=== PATIENT | male | born 1960 | race African-American/Black ===

== ENCOUNTER 2018-01-14 17:00 | Emergency (ER) | payer MEDICARE, MEDICAID ==
[2018-01-14 17:32] LABS: #Basophils 0.1 thou/uL (0.0-0.2); #Eosinphils 0.2 thou/uL (0.0-0.7); #Lymphocytes 2.3 thou/uL (1.20-3.40); #Neutrophils 7.8 thou/uL (1.40-6.50); %Basophils 0.9 % (0.0-1.0); %Eosinophils 1.4 % (0.0-10.0); %Monocytes 9.1 % (0.0-10.0); %Neutrophils 68.7 % (42.0-75.0); Hemoglobin 16.5 g/dL (14.0-18.0); Mean Corpuscular HGB CONC 33.7 g/dL (32.0-36.0); Mean Corpuscular Hemoglobin 34.7 pg (27.0-31.0); Mean Platelet Volume 10.4 fL (7.4-10.4); Platelet Count 154 thou/uL (130-400); RBC Distribution Width 12.1 % (11.5-14.5); Red Blood Cell (RBC) Count 4.76 mill/uL (4.70-6.10); White Blood Cell (WBC) Count 11.4 thou/uL (4.8-10.8)
[2018-01-14 17:45] LABS: CKMB 4.4 ng/mL (0-6.6); Troponin I 0.098 ng/mL (< 0.028)
--- NOTE | 2018-01-14 17:47 | RAD ---
CHEST ONE VIEW: HISTORY: Syncope. COMPARISON: 11/03/2015 and 11/08/2015 FINDINGS: There is a right-sided transvenous defibrillator with lead position over the right ventricle and maxx nary sinus. Lead position unchanged from the most recent prior. Atherosclerosis of the aorta. Norm al cardiac silhouette. The pulmonary vessels and hilum are normal. Chronic change in the lung bases . No consolidation or masses. No pleural effusion, pneumothorax, or osseous abnormalities. IMPRESSION: 1. No acute cardiopulmonary process. 2. Atherosclerosis of the aorta. POS: HECTOR
[2018-01-14 18:09] LABS: PTT 28.4 SEC (22.9-36.1); Prothrombin Time 13.4 SEC (12.0-14.7)
[2018-01-14 18:34] LABS: ALT (SGPT) 37 U/L (8-55); AST (SGOT) 48 U/L (5-34); Albumin 4.2 g/dL (3.5-5.0); Alkaline Phosphatase 70 U/L (40-150); Anion Gap 19 mmol/L (10-20); BUN (Urea Nitrogen) 39 mg/dL (8.4-25.7); Bilirubin, Total 1.3 mg/dL (0.2-1.2); Calc. Creatinine Clearance 0 mL/min (70-130); Calcium 10.7 mg/dL (7.8-10.44); Carbon Dioxide 24 mmol/L (22-29); Chloride 96 mmol/L (98-107); Estimated GFR-MDRD 46; Globulin 4.9 g/dL (2.4-3.5); Glucose 148 mg/dL (70-105); Potassium 3.7 mmol/L (3.5-5.1); Protein, Total 9.1 g/dL (6.0-8.3); Sodium 135 mmol/L (136-145)
--- NOTE | 2018-01-14 18:47 | CT ---
CT BRAIN WITHOUT CONTRAST: HISTORY: Syncope. Tiredness. COMPARISON: 12/14/2012 TECHNIQUE: Multiple contiguous axial images were obtained in a CT of the brain without contrast. FINDINGS: There are scattered hypodensities in the subcortical and periventricular white matter, likely seconda ry to small vessel ischemic disease. No large confluent infarction is seen. There is no evidence of hydrocephalus, intracranial hemorrhage, or extraaxial fluid collection. The calvarium and overlying soft tissues are unremarkable. The visualized paranasal sinuses and mast oid air cells are well aerated. IMPRESSION: No evidence of acute intracranial abnormality. POS: C
[2018-01-14] MEDS ORDERED: Acetaminophen 500 MG TAB ONE (19:24)
== END 2018-01-14 20:19 | disposition home or self-care (01) ==
LOC: ERS 17:00
DX: E86.0 Dehydration (principal); R55 Syncope and collapse; I11.0 Hypertensive heart disease with heart failure; I50.9 Heart failure, unspecified; M10.9 Gout, unspecified; D50.9 Iron deficiency anemia, unspecified; F17.210 Nicotine dependence, cigarettes, uncomplicated; I49.9 Cardiac arrhythmia, unspecified; I38 Endocarditis, valve unspecified; E87.5 Hyperkalemia; Z79.01 Long term (current) use of anticoagulants; Z79.899 Other long term (current) drug therapy; Z79.82 Long term (current) use of aspirin; Z79.891 Long term (current) use of opiate analgesic
CPT/HCPCS: 36415; 70450; 71045; 80053; 82553; 83880; 84484; 85025; 85610; 85730; 93005; 96360

== ENCOUNTER 2018-06-16 11:51 | Emergency (ER) | payer MEDICARE, MEDICAID ==
--- NOTE | 2018-06-16 13:15 | RAD ---
PORTABLE CHEST: Date: 06/16/18 HISTORY: Epigastric pain starting last night. COMPARISON: 01/14/18 study. FINDINGS: Heart size appears enlarged. It appears more prominent than on the previous exam. Internal defibrilla tor device is present. Atherosclerotic changes of aorta. Lungs are clear of infiltrates. No signs of failure. IMPRESSION: Cardiomegaly. Heart size appears larger than on the previous exam, some of which could be technique r elated. POS: HECTOR
[2018-06-16] MEDS ORDERED: Morphine 4 MG/ML VIAL ONE (13:26)
[2018-06-16] MEDS ORDERED: Ondansetron PF 4 MG/2 ML Vial ONE (13:27)
[2018-06-16] MEDS ORDERED: Dicyclomine 20 MG TAB ONE (13:27)
[2018-06-16 13:33] LABS: #Basophils 0.1 thou/uL (0.0-0.2); #Eosinphils 0.1 thou/uL (0.0-0.7); #Lymphocytes 1.7 thou/uL (1.20-3.40); #Monocytes 0.9 thou/uL (0.11-0.59); %Eosinophils 1.1 % (0.0-10.0); %Lymphocytes 17.3 % (21.0-51.0); %Monocytes 8.6 % (0.0-10.0); %Neutrophils 71.9 % (42.0-75.0); Hemoglobin 14.5 g/dL (14.0-18.0); Mean Corpuscular HGB CONC 33.8 g/dL (32.0-36.0); Mean Corpuscular Hemoglobin 35.1 pg (27.0-31.0); Mean Platelet Volume 8.8 fL (7.4-10.4); Platelet Count 134 thou/uL (130-400); Red Blood Cell (RBC) Count 4.14 mill/uL (4.70-6.10); White Blood Cell (WBC) Count 9.8 thou/uL (4.8-10.8)
[2018-06-16 13:39] LABS: INR-International Normal Ratio 1.1; Prothrombin Time 13.8 SEC (12.0-14.7)
[2018-06-16 14:16] LABS: CKMB 4.4 ng/mL (0-6.6)
[2018-06-16 14:58] LABS: ALT (SGPT) 22 U/L (8-55); AST (SGOT) 29 U/L (5-34); Alkaline Phosphatase 66 U/L (40-150); Anion Gap 9 mmol/L (10-20); BUN (Urea Nitrogen) 13 mg/dL (8.4-25.7); Bilirubin, Total 1.2 mg/dL (0.2-1.2); Calc. Creatinine Clearance 0 mL/min (70-130); Calcium 10.1 mg/dL (7.8-10.44); Carbon Dioxide 32 mmol/L (22-29); Chloride 98 mmol/L (98-107); Estimated GFR-MDRD 76; Globulin 3.6 g/dL (2.4-3.5); Glucose 89 mg/dL (70-105); Potassium 3.3 mmol/L (3.5-5.1); Protein, Total 7.6 g/dL (6.0-8.3); Sodium 136 mmol/L (136-145)
[2018-06-16] MEDS ORDERED: Lidocaine Viscous Sol 2% 15 ml UD Cup ONE (15:16)
[2018-06-16] MEDS ORDERED: Mag-Al 1200 mg/1200 mg/30 ML UDCUP ONE (15:16)
== END 2018-06-16 16:10 | disposition home or self-care (01) ==
LOC: ERS 11:51
DX: R10.13 Epigastric pain (principal); I11.0 Hypertensive heart disease with heart failure; I50.9 Heart failure, unspecified; I48.91 Unspecified atrial fibrillation; D50.9 Iron deficiency anemia, unspecified; M10.9 Gout, unspecified; F17.210 Nicotine dependence, cigarettes, uncomplicated; Z79.82 Long term (current) use of aspirin; Z79.899 Other long term (current) drug therapy; Z79.01 Long term (current) use of anticoagulants
CPT/HCPCS: 71045; 80053; 82553; 83690; 84484; 85025; 85610; 85730; 93005; 96374; 96375; J2270; J2405

== ENCOUNTER 2018-07-15 19:52 | Observation (INO) | payer MEDICARE, MEDICAID ==
[~2018-07-15 19:52] MED LIST: ISOVUE-370 76%-LOCM 1 ML ONE
[2018-07-15 21:20] LABS: Hemoglobin 14.8 g/dL (14.0-18.0); Mean Corpuscular HGB CONC 32.9 g/dL (32.0-36.0); Mean Corpuscular Hemoglobin 35.4 pg (27.0-31.0); Platelet Count 176 thou/uL (130-400); RBC Distribution Width 12.6 % (11.5-14.5); Red Blood Cell (RBC) Count 4.19 mill/uL (4.70-6.10); White Blood Cell (WBC) Count 13.9 thou/uL (4.8-10.8)
[2018-07-15 21:29] LABS: ALT (SGPT) 36 U/L (8-55); AST (SGOT) 59 U/L (5-34); Albumin 4.1 g/dL (3.5-5.0); Alkaline Phosphatase 86 U/L (40-150); Anion Gap 14 mmol/L (10-20); BUN (Urea Nitrogen) 19 mg/dL (8.4-25.7); Bilirubin, Total 1.3 mg/dL (0.2-1.2); Calc. Creatinine Clearance 0 mL/min (70-130); Calcium 9.9 mg/dL (7.8-10.44); Carbon Dioxide 29 mmol/L (22-29); Chloride 97 mmol/L (98-107); Estimated GFR-MDRD 74; Glucose 84 mg/dL (70-105); Potassium 3.3 mmol/L (3.5-5.1); Protein, Total 8.1 g/dL (6.0-8.3); Sodium 137 mmol/L (136-145)
--- NOTE | 2018-07-15 21:41 | RAD ---
Radiograph chest 2 views: 07/15/2018 at 9:16 PM HISTORY: 58-year-old male with cough COMPARISON: 06/16/2018 FINDINGS: Borderline or mild cardiomegaly. Right subclavian AICD. No pulmonary venous engorgement or pulmonary edema. No consolidation, pleural effusion, or pneumothorax. No major interval change, allowing for positional differences. IMPRESSION: 1. No acute pulmonary findings. 2. Automatic implantable cardioverter-defibrillator. 3. Borderline cardiomegaly without congestive heart failure.
[2018-07-15 21:42] LABS: #Basophils 0.1 thou/uL (0.0-0.2); #Eosinphils 0.1 thou/uL (0.0-0.7); #Lymphocytes 2.5 thou/uL (1.20-3.40); #Monocytes 1.3 thou/uL (0.11-0.59); %Basophils 0.5 % (0.0-1.0); %Eosinophils 0.7 % (0.0-10.0); %Lymphocytes 17.8 % (21.0-51.0); %Monocytes 9.1 % (0.0-10.0); %Neutrophils 71.8 % (42.0-75.0); MDiff Complete? YES; Macrocytosis SLIGHT = 6-15 cells (100X) (0-5/hpf); Platelet Morphology Comment Appears Adequate
[2018-07-15] MEDS ORDERED: Aspirin Chewable 81 MG TAB ONE ×2 (21:48)
[2018-07-15] MEDS ORDERED: Ondansetron ODT 4 MG TAB ONE (21:48)
[2018-07-15 21:50] LABS: CKMB 2.5 ng/mL (0-6.6)
[2018-07-15] MEDS ORDERED: diphenhydrAMINE 50 MG/ML VIAL ONE (23:58)
[2018-07-15] MEDS ORDERED: Famotidine/PF 20 mg/2ml Vial ONE (23:58)
[2018-07-15] MEDS ORDERED: methylPREDNISolone Sod Succ/PF 125 MG/2 ML VIAL ONE (23:58)
[2018-07-16 00:44] LABS: Troponin I 0.092 ng/mL (< 0.028)
[2018-07-16 02:52] VITALS: BMI 28.3
[2018-07-16] MEDS ORDERED: Ondansetron ODT 4 MG TAB SL PRN (02:53)
[2018-07-16] MEDS ORDERED: Ondansetron PF 4 MG/2 ML Vial IVP PRN (02:53)
[2018-07-16] MEDS ORDERED: Acetaminophen 325 MG TAB PO PRN (02:53)
[2018-07-16] MEDS ORDERED: Sodium Chloride 0.9% 1,000 ML IV SCH (03:00)
[2018-07-16 03:38] LABS: Troponin I 0.104 ng/mL (< 0.028)
--- NOTE | 2018-07-16 08:28 | CT ---
CTA CHEST WITH 3D RENDERING, WITH CONTRAST: Indication: Elevated D-Dimer and chest pain. Comparison: 09-05-13 FINDINGS: There is no evidence of a significant filling defect of the pulmonary arteries. The thoracic aorta is incompletely assessed by technique although it is mildly aneurysmal. There is scattered vascular fany cification. No lobar consolidation or effusion. No pneumothorax. Mild nonspecific scattered ground gl ass opacities at each lung are present. Partially imaged punctate density of the left kidney could re late to either excreted contrast or partially imaged nephrolithiasis. There is enlargement of the car diac chambers. Right sided cardiac pacing device is present. IMPRESSION: 1. No large, central pulmonary embolus. 2. Nonspecific mild ground glass opacities bilaterally. A component of this may relate to respiratory motion artifact. In addition, there may be edema given the enlarged cardiac chambers related to CHF. Recommend clinical correlation in this regard. POS: DEB
[2018-07-16] MEDS ORDERED: Warfarin Sodium 5 MG TAB PO SCH (09:00)
[2018-07-16] MEDS ORDERED: Pantoprazole 40 MG VIAL IVP SCH (09:36)
[2018-07-16 09:41] LABS: #Monocytes 0.2 thou/uL (0.11-0.59); #Neutrophils 11.9 thou/uL (1.40-6.50); %Basophils 0.3 % (0.0-1.0); %Eosinophils 0.1 % (0.0-10.0); %Lymphocytes 7.8 % (21.0-51.0); %Monocytes 1.5 % (0.0-10.0); %Neutrophils 90.4 % (42.0-75.0); Hemoglobin 14.8 g/dL (14.0-18.0); Mean Corpuscular HGB CONC 33.1 g/dL (32.0-36.0); Mean Corpuscular Hemoglobin 35.5 pg (27.0-31.0); Mean Platelet Volume 8.1 fL (7.4-10.4); Platelet Count 165 thou/uL (130-400); RBC Distribution Width 12.7 % (11.5-14.5); Red Blood Cell (RBC) Count 4.18 mill/uL (4.70-6.10); White Blood Cell (WBC) Count 13.1 thou/uL (4.8-10.8)
[2018-07-16 09:47] LABS: INR-International Normal Ratio 1.2; PTT 31.4 SEC (22.9-36.1); Prothrombin Time 14.8 SEC (12.0-14.7)
[2018-07-16] MEDS ORDERED: Sodium Chloride 0.9% (PF) 10 ML VIAL FS PRN (09:51)
[2018-07-16 10:03] LABS: Anion Gap 15 mmol/L (10-20); BUN (Urea Nitrogen) 17 mg/dL (8.4-25.7); Calc. Creatinine Clearance 85 mL/min (70-130); Calcium 10.1 mg/dL (7.8-10.44); Carbon Dioxide 27 mmol/L (22-29); Chloride 98 mmol/L (98-107); Estimated GFR-MDRD 74; Glucose 128 mg/dL (70-105); Potassium 3.3 mmol/L (3.5-5.1); Sodium 137 mmol/L (136-145)
--- NOTE | 2018-07-16 12:17 | ULT ---
EXAM: Bilateral lower extremity venous Doppler evaluation PROVIDED CLINICAL HISTORY: Elevated d-dimer. Concern for DVT TECHNIQUE: Grayscale, color doppler and spectral doppler images were obtained of the common femoral , femoral, profunda femoral, popliteal and posterior tibial veins of both lower extremities. FINDINGS: There is normal compression, flow and augmentation seen with the deep venous structures within both l ower extremities. IMPRESSION: No sonographic evidence for lower extremity deep venous thrombosis.
--- NOTE | 2018-07-16 12:47 | ULT ---
US Gallbladder RUQ History: [Right upper quadrant abdominal pain] Comparison: Right upper quadrant ultrasound 2014 Findings: Real-time grayscale and color evaluation of the right upper quadrant the abdomen was perfor med. Michael pancreas aorta and IVC are unremarkable. No hepatic mass. Gallbladder is normal. Gallbladde r wall thickness is normal. No pericholecystic fluid. Common bile duct measures 4 mm, normal. Portal vein is patent with antegrade flow. Liver measures 14.2 cm in length. Right kidney measures 11.3 x 5.5 x 6.9 cm without mass, hydronephro sis, or abnormal calcifications. Sonographic Kee sign is negative. Impression: No acute abnormality. No gallbladder pathology. No cholelithiasis or cholecystitis.
[2018-07-16] MEDS: Potassium Chloride 10 MEQ TAB PO SCH (13:03)
[2018-07-16] MEDS: Aspirin 81 mg Enteric Coated Tablet PO SCH (13:04)
[2018-07-16] MEDS: Furosemide 80 MG TAB PO SCH ×2 (13:04→13:05)
[2018-07-16] MEDS: Carvedilol 6.25 MG TAB PO SCH ×2 (13:04→20:10)
[2018-07-16 13:05] LABS: Platelet Count 191 thou/uL (130-400)
[2018-07-16] MEDS: Sacubitril 49 MG/Valsartan 51 MG TABLET PO SCH ×2 (13:05→20:13)
[2018-07-16] MEDS: Pantoprazole 40 MG VIAL IVP SCH ×2 (13:08→20:13)
[2018-07-16] MEDS ORDERED: Warfarin Sodium 7.5 MG TAB PO SCH ×2 (17:00)
[2018-07-16] MEDS ORDERED: Atorvastatin Calcium 40 MG TAB PO SCH (21:00)
--- NOTE | 2018-07-17 00:15 | HP ---
PRIMARY CARE PHYSICIAN: Dr. Eugenio Heard. CHIEF COMPLAINT: Right-sided epigastric pain. HISTORY OF PRESENT ILLNESS: Mr. Aldrich is a 58-year-old male with a past medical history of hypertension, hyperlipidemia, nonischemic cardiomyopathy with an AICD in place, who had presented to [facility] late last night for this right-sided epigastric pain that started late Sunday night while he was making dinner. He states the pain improved Sunday night, however, came back early Sunday morning, he states this was what brought him into the ER. He states that when his pain had started, he had noticed an increase gas and had positive flatulence. He states after he had passed gas that his pain improved. Upon arriving to the emergency department, his troponins were noted to be in the indeterminate range which seems to be his baseline, D-dimer was also elevated greater than 20; however, this was also noted to be his baseline, this has been high since dating back to 2012. The patient states that he has been taking warfarin 5 mg and 7.5 mg, he states that he has followed up with his PCP at the [facility]; however, he states that as far as he knows that his INR has not been monitored. His INR here had been noted to be subtherapeutic at 1.2, this also appears to be his baseline; however, patient reports being compliant. He states his outpatient facility physical therapist is Dr. Cuevas, case and plan discussed with Dr. Cuevas. The patient's pain had resolved after he had received a GI cocktail in the emergency department. Dr. Cuevas recommended to rule out problems with his gallbladder and recommended an ultrasound of his abdomen for further evaluation. He states if this is negative that he would be comfortable with this patient being discharged home and a close followup with himself in his office for further evaluation and management of his chronic condition. REVIEW OF SYSTEMS: All other systems reviewed and found to be negative unless mentioned in the HPI. PAST MEDICAL HISTORY: Hypertension, hyperlipidemia, nonischemic cardiomyopathy, chronic systolic heart failure. PAST SURGICAL HISTORY: AICD in place, cardiac ablation. PSYCHIATRIC HISTORY: None. SOCIAL HISTORY: The patient reports drinking socially every week, he states he smokes less than half pack per day of cigarettes, but had denied any further illicit drug use. KNOWN ALLERGIES: Iodine and spironolactone. CURRENT HOME MEDICATIONS: 1. Aspirin 81 mg daily. 2. Vitamin D3 1000 units p.o. daily. 3. Warfarin 5 mg p.o. daily Sunday, Sunday, , Sunday and Sunday. 4. Warfarin 7.5 mg p.o. every Sunday and Sunday. 5. Atorvastatin 40 mg p.o. daily. 6. Entresto 49 mg/51 mg tablet p.o. b.i.d. 7. Nexium 20 mg p.o. daily. 8. Furosemide 80 mg p.o. b.i.d. 9. Carvedilol 25 mg p.o. b.i.d. 10. Probenecid/colchicine 0.5/500 mg p.o. b.i.d. 11. Vitamin B12 100 mcg p.o. daily. 12. Potassium chloride 20 mEq p.o. daily. PHYSICAL EXAMINATION: VITAL SIGNS: Blood pressure 126/76, pulse 61, respirations 20, temperature 98.6 degrees Fahrenheit, O2 saturations 95% on room air. GENERAL: The patient is awake, alert, and oriented x3. He is lying comfortably in bed, in no acute distress. HEENT: Atraumatic, normocephalic. Pupils are round and reactive to light. Extraocular muscles are intact. Moist mucous membranes noted. NECK: Soft and supple. Trachea midline. CARDIOVASCULAR: Positive S1 and S2. Regular rate and rhythm. No murmur auscultated. RESPIRATORY: Clear to auscultation bilaterally. No wheezes, rales, or rhonchi. ABDOMEN: Soft, mild tenderness in his right upper quadrant. Normal bowel sounds present throughout his abdomen. MUSCULOSKELETAL: Strength 5+ bilaterally in upper and lower extremities. Moves all extremities equal. No edema noted. NEUROLOGIC: Cranial nerves 2 through 12 grossly intact. No focal deficits noted. Speech intact and normal. Gait not assessed. SKIN: Warm, dry, and intact. No rashes, lesions, or ulcerations noted. PSYCHIATRIC: Good mood and affect. LABORATORY DATA: WBC 13.1, RBC 4.18, hemoglobin 14.8, platelet 165. PT 14.8, INR 1.2, PTT 31.4. D-dimer greater than 20. Sodium 137, potassium 3.3, anion gap 15, BUN 17, creatinine 1.22, estimated GFR 74, glucose 128, AST 59, ALT 36. Troponin 0.096, 0.092, 0.104. Lipase 33. DIAGNOSTIC IMAGING: Lower extremity venous Doppler showed no evidence of lower extremity DVT at this time. CTA of the chest showed no large central pulmonary emboli, but did show nonspecific mild ground-glass opacities bilaterally, a component of this may relate to respiratory motion artifact. In addition, there may be edema given the enlarged cardiac chambers related to CHF. Portable chest x-ray showed no acute pulmonary findings with an AICD in place. Borderline cardiomegaly without congestive heart failure noted. Ultrasound of gallbladder right upper quadrant showed no acute abnormality. No gallbladder pathology. No cholelithiasis or cholecystitis noted. ASSESSMENT AND PLAN: 1. Right upper quadrant abdominal pain. This has currently resolved and improved status post GI cocktail, the patient will be kept on PPI at this time. Right upper quadrant gallbladder ultrasound was unremarkable. The patient will be monitored overnight for further events and likely be discharged in the morning. 2. History of chronic systolic heart failure, nonischemic cardiomyopathy, case and plan was also discussed with Dr. Cuevas, who had determined the patient's symptoms were likely noncardiac in nature. He had recommended the patient be restarted on his home medications and will follow up with Dr. Cuevas as an outpatient. 3. Elevated D-dimer, this is patient's baseline, D-dimer has been noted to be elevated since 2012. He will be continued on warfarin at this time. Lower extremity Doppler and CTA of chest were found to be negative for DVT and PE at this time. 4. History of warfarin use. The patient's INR is found to be subtherapeutic at this time at 1.2. He will be started on a higher dose of warfarin and his INR will be rechecked in the morning. 5. Hypokalemia. The patient's potassium is slightly low at 3.3. He will be continued on his home dose of potassium chloride at this time and BMP will be rechecked in the morning. 6. Hypertension, currently stable at this time. However, patient will be kept on his home regimen during hospital course. 7. Deep venous thrombosis and gastrointestinal prophylaxis. 8. Code status, full code. DISPOSITION: The patient will be monitored overnight. Labs including INR and BMP will be rechecked in the morning. The patient will likely be discharged later tomorrow with close followup with his outpatient facility physical therapist, Dr. Cuevas. Job ID: [id number]
[2018-07-17 09:45] LABS: INR-International Normal Ratio 1.2; Prothrombin Time 15.5 SEC (12.0-14.7)
[2018-07-17] MEDS: Carvedilol 6.25 MG TAB PO SCH (10:19)
[2018-07-17] MEDS: Potassium Chloride 10 MEQ TAB PO SCH (10:19)
[2018-07-17] MEDS: Furosemide 80 MG TAB PO SCH (10:21)
[2018-07-17] MEDS: Aspirin 81 mg Enteric Coated Tablet PO SCH (10:22)
[2018-07-17] MEDS: Sacubitril 49 MG/Valsartan 51 MG TABLET PO SCH (10:28)
[2018-07-17] MEDS: Pantoprazole 40 MG VIAL IVP SCH (10:29)
[2018-07-17 11:53] VITALS: BP 133/93; TEMP 98.6
[2018-07-17] MEDS ORDERED: Warfarin Sodium 7.5 MG TAB PO SCH (17:00)
[2018-07-17] MEDS ORDERED: Warfarin Sodium 5 MG TAB PO SCH (17:00)
== END 2018-07-17 13:12 | disposition home or self-care (01) ==
LOC: ERS 19:52 → 2SW 23:00
PROVIDERS: ADMIT Hospitalist; ATTEND Hospitalist
DX: R10.11 Right upper quadrant pain (principal); I11.0 Hypertensive heart disease with heart failure; I50.22 Chronic systolic (congestive) heart failure; E78.5 Hyperlipidemia, unspecified; I42.9 Cardiomyopathy, unspecified; F17.210 Nicotine dependence, cigarettes, uncomplicated; E87.6 Hypokalemia; R79.1 Abnormal coagulation profile; Z79.01 Long term (current) use of anticoagulants; Z79.82 Long term (current) use of aspirin; Z79.899 Other long term (current) drug therapy; Z88.8 Allergy status to other drugs, medicaments and biological substances; Z91.041 Radiographic dye allergy status; Z95.810 Presence of automatic (implantable) cardiac defibrillator
CPT/HCPCS: 71046; 71275; 76705; 80048; 80053; 82553; 83690; 83880; 84484 ×2; 85014; 85018; 85025 ×2; 85049; 85379; 85610 ×2; 85730; 93005; 93970; 96374; 96375 ×2; 96376; 99285; G0378 ×2; 36415; C9113; J1200; J2930; Q0162; Q9966; S0028

== ENCOUNTER 2018-07-24 01:42 | Emergency (ER) | payer MEDICARE, MEDICAID ==
[2018-07-24] MEDS ORDERED: Dexamethasone 10 MG/ML VIAL ONE (02:13)
[2018-07-24] MEDS ORDERED: Ketorolac Tromethamine 60 MG/2 ML VIAL ONE (02:13)
[2018-07-24] MEDS ORDERED: Fentanyl 100 MCG/2 ML VIAL ONE (02:14)
== END 2018-07-24 03:50 | disposition home or self-care (01) ==
LOC: ERS 01:42
DX: M10.9 Gout, unspecified (principal); I11.0 Hypertensive heart disease with heart failure; I50.9 Heart failure, unspecified; I48.91 Unspecified atrial fibrillation; F17.210 Nicotine dependence, cigarettes, uncomplicated; Z79.899 Other long term (current) drug therapy; Z79.82 Long term (current) use of aspirin; Z79.01 Long term (current) use of anticoagulants
CPT/HCPCS: 96372; J1100; J1885; J3010

== ENCOUNTER 2018-08-14 19:40 | Emergency (ER) | payer MEDICARE, MEDICAID ==
[2018-08-14 20:45] LABS: #Eosinphils 0.1 thou/uL (0.0-0.7); #Lymphocytes 1.9 thou/uL (1.20-3.40); #Monocytes 0.9 thou/uL (0.11-0.59); #Neutrophils 7.2 thou/uL (1.40-6.50); %Basophils 0.4 % (0.0-1.0); %Eosinophils 1.4 % (0.0-10.0); %Monocytes 8.6 % (0.0-10.0); %Neutrophils 70.6 % (42.0-75.0); Hemoglobin 13.2 g/dL (14.0-18.0); Mean Corpuscular HGB CONC 33.5 g/dL (32.0-36.0); Mean Corpuscular Hemoglobin 35.7 pg (27.0-31.0); Mean Platelet Volume 8.9 fL (7.4-10.4); Platelet Count 125 thou/uL (130-400); RBC Distribution Width 12.8 % (11.5-14.5); Red Blood Cell (RBC) Count 3.69 mill/uL (4.70-6.10); White Blood Cell (WBC) Count 10.1 thou/uL (4.8-10.8)
[2018-08-14] MEDS ORDERED: Pantoprazole 40 MG VIAL ONE (20:45)
[2018-08-14] MEDS ORDERED: Lidocaine Viscous Sol 2% 15 ml UD Cup ONE (20:45)
[2018-08-14] MEDS ORDERED: Mag-Al 1200 mg/1200 mg/30 ML UDCUP ONE (20:45)
[2018-08-14 21:00] LABS: ALT (SGPT) 29 U/L (8-55); AST (SGOT) 49 U/L (5-34); Albumin 3.8 g/dL (3.5-5.0); Alkaline Phosphatase 94 U/L (40-150); Anion Gap 13 mmol/L (10-20); BUN (Urea Nitrogen) 20 mg/dL (8.4-25.7); Bilirubin, Total 1.1 mg/dL (0.2-1.2); Calc. Creatinine Clearance 0 mL/min (70-130); Calcium 10.1 mg/dL (7.8-10.44); Carbon Dioxide 33 mmol/L (22-29); Chloride 93 mmol/L (98-107); Estimated GFR-MDRD 66; Globulin 3.5 g/dL (2.4-3.5); Glucose 107 mg/dL (70-105); Lipase 19 U/L (8-78); Potassium 3.3 mmol/L (3.5-5.1); Protein, Total 7.3 g/dL (6.0-8.3); Sodium 136 mmol/L (136-145)
[2018-08-14 21:20] LABS: CKMB 3.2 ng/mL (0-6.6)
== END 2018-08-14 21:50 | disposition home or self-care (01) ==
LOC: ERS 19:40
DX: R10.13 Epigastric pain (principal); R11.0 Nausea; I11.0 Hypertensive heart disease with heart failure; I50.9 Heart failure, unspecified; I48.91 Unspecified atrial fibrillation; D50.9 Iron deficiency anemia, unspecified; M10.9 Gout, unspecified; F17.210 Nicotine dependence, cigarettes, uncomplicated; Z79.01 Long term (current) use of anticoagulants; Z79.82 Long term (current) use of aspirin; Z79.899 Other long term (current) drug therapy
CPT/HCPCS: 80053; 82553; 83690; 84484; 85025; 93005; 96374; C9113

== ENCOUNTER 2018-08-19 11:14 | Observation (INO) | payer MEDICARE, MEDICAID ==
--- NOTE | 2018-08-19 12:00 | RAD ---
EXAM: Single view of the chest HISTORY: Syncope COMPARISON: 06/16/2018 FINDINGS: Single view of the chest shows an enlarged but stable cardiomediastinal silhouette. The pa cemaker is unchanged in position. There is no evidence of consolidation, mass, or pleural effusion. The bones are unremarkable. IMPRESSION: Cardiomegaly without evidence of acute cardiopulmonary disease
[2018-08-19 12:01] LABS: #Basophils 0.1 thou/uL (0.0-0.2); #Eosinphils 0.2 thou/uL (0.0-0.7); #Lymphocytes 2.5 thou/uL (1.20-3.40); #Neutrophils 9.8 thou/uL (1.40-6.50); %Basophils 0.6 % (0.0-1.0); %Eosinophils 1.6 % (0.0-10.0); %Lymphocytes 18.5 % (21.0-51.0); %Monocytes 7.4 % (0.0-10.0); %Neutrophils 71.9 % (42.0-75.0); Hemoglobin 16.9 g/dL (14.0-18.0); Mean Corpuscular HGB CONC 33.6 g/dL (32.0-36.0); Mean Corpuscular Hemoglobin 35.4 pg (27.0-31.0); Mean Platelet Volume 8.2 fL (7.4-10.4); Platelet Count 182 thou/uL (130-400); RBC Distribution Width 12.7 % (11.5-14.5); Red Blood Cell (RBC) Count 4.77 mill/uL (4.70-6.10); White Blood Cell (WBC) Count 13.7 thou/uL (4.8-10.8)
[2018-08-19 12:21] LABS: ALT (SGPT) 37 U/L (8-55); AST (SGOT) 35 U/L (5-34); Albumin 4.4 g/dL (3.5-5.0); Alkaline Phosphatase 97 U/L (40-150); Anion Gap 13 mmol/L (10-20); BUN (Urea Nitrogen) 27 mg/dL (8.4-25.7); Bilirubin, Total 1.9 mg/dL (0.2-1.2); CK (CPK) 244 U/L (30-200); Calc. Creatinine Clearance 0 mL/min (70-130); Calcium 11.4 mg/dL (7.8-10.44); Carbon Dioxide 36 mmol/L (22-29); Chloride 88 mmol/L (98-107); Estimated GFR-MDRD 38; Globulin 4.4 g/dL (2.4-3.5); Glucose 129 mg/dL (70-105); Potassium 3.2 mmol/L (3.5-5.1); Protein, Total 8.8 g/dL (6.0-8.3); Sodium 134 mmol/L (136-145)
[2018-08-19 12:41] LABS: CKMB 3.3 ng/mL (0-6.6)
--- NOTE | 2018-08-19 13:35 | CT ---
CT cervical spine. HISTORY: Fall syncope. Noncontrast enhanced CT images cervical spine obtained. There is disc space height loss with anterior and posterior osteophytes at C3-4, C4-5, C5-6 and C6-7. Findings compatible with changes of spondylosis. Vertebral bodies are unremarkable. The neural forame n are patent. Bilateral carotid bulb vascular calcifications seen. IMPRESSION: extensive cervical spine spondylosis without evidence of acute cervical spine fractures.
--- NOTE | 2018-08-19 13:37 | CT ---
HEAD CT WITHOUT IV CONTRAST: HISTORY: Fall/syncope. COMPARISON: 01/14/2018. FINDINGS: Patchy low attenuation changes noted in the right posterior temporal and parietal regions which are n ew from the prior study having more the appearance of subacute infarct changes. No evidence for sign ificant mass effect or midline shift. No acute hemorrhage. Scattered chronic white matter ischemic changes. IMPRESSION: Evidence for probable subacute infarct changes involving the posterior right temporal and parietal re gions. If patient's symptoms are within the time window for treatment for acute infarct, consider followup C TA brain and neck. If not, consider followup brain MRI for further assessment. Findings discussed with Susy Arcos at 1:30 p.m. MARGARET LINDSAY
[2018-08-19 14:06] LABS: Prothrombin Time 13.3 SEC (12.0-14.7)
[2018-08-19] MEDS ORDERED: Famotidine/PF 20 mg/2ml Vial ONE (14:15)
[2018-08-19] MEDS ORDERED: methylPREDNISolone Sod Succ/PF 125 MG/2 ML VIAL ONE (14:15)
[2018-08-19] MEDS ORDERED: diphenhydrAMINE 50 MG/ML VIAL ONE (14:15)
--- NOTE | 2018-08-19 15:38 | CT ---
CT ANGIOGRAM NECK WITH CONTRAST CT ANGIOGRAM OF BRAIN WITH CONTRAST: DATE: 08/19/2018 HISTORY: 58-year-old male with right MCA territory subacute infarction. TECHNIQUE: After IV contrast injection, arterial bolus chasing technique scan performed from 3 cm inferior to th e ness to vertex of head. Coronal and sagittal 3-D MIP reconstructions. FINDINGS: Streak artifact from right-sided pacemaker generator, pacemaker leads in the superior vena cava, and from dense contrast material in right-sided veins, there is severe obscuring of much of the right subclavian artery and very proximal portion of right common carotid artery. No high-grade stenosis in the rest of the right common carotid artery. Bovine origin of the left common carotid artery with no evidence of high-grade stenosis. No high-grade stenosis of left proximal subclavian artery. Distal portions are is obscured by streak artifact from contrast material in collateral veins. Numerous collateral veins throughout the perivertebral space obscures the proximal and mid portions of the simone ateral vertebral arteries. Atherosclerotic calcification of bilateral proximal internal carotid arteries, including carotid bulb s, without high-grade stenosis. Intracranially, right vertebral artery is dominant. No high-grade short segment acquired stenosis or occlusion identified in anterior or posterior circulation (except for the carotid siphons, which are difficult to evaluate because of heavy atherosclerotic plaque) involving proximal vessels. This i ncludes patent M1 segments of bilateral middle cerebral arteries, without high-grade stenosis, as well as anterior cerebral arteries. IMPRESSION: 1) suboptimal evaluation of proximal portions of major arteries of neck for reasons given above. 2) no occlusion, thrombus, or high-grade stenosis of proximal vessels of [place] of [place], including M1 segments of bilateral middle cerebral arteries.
[2018-08-19 16:54] LABS: Troponin I 0.116 ng/mL (< 0.028)
[2018-08-19] MEDS ORDERED: HYDROcodone/Acetaminophen 5/325 mg Tablet PO PRN (18:04)
[2018-08-19] MEDS ORDERED: Acetaminophen 325 MG TAB PO PRN (18:04)
[2018-08-19] MEDS ORDERED: Senokot S 8.6-50 MG TAB PO PRN (18:04)
[2018-08-19] MEDS ORDERED: NS 0.9% w/ 40 MEQ KCL 1,000 ML IV SCH (18:30)
[2018-08-19 19:48] LABS: Cardiac Risk 3.7 (Less than 4.5)
--- NOTE | 2018-08-19 22:26 | HP ---
PRIMARY CARE PHYSICIAN: Dr. Heard at [facility]. CODE STATUS: Full code. CHIEF COMPLAINT: Back strain. HISTORY OF PRESENT ILLNESS: The patient is a 58-year-old male with a past medical history of heart failure with a pacemaker, high blood pressure, atrial fibrillation with ablation, on Coumadin, gout, MD, and shingles, who presents to the ER for syncope. The patient reports that he passed out around 10:30 a.m. while inside a convenience store. He denies any LOC or vomiting. He denies any associated chest pain, shortness of breath, or heart palpitations. He reports that he fell backwards in the store and then had a friend drive him home. At home, he called his brother and his brother decided to drive him to the ER. They arrived at the ER about 1300 hours. Upon arrival, CT of the brain was done, which showed a subacute right parietal infarct. CTA was suboptimal. Chest x-ray was positive for cardiomegaly. Cardiac enzymes were elevated at 0.143. In the ED, the patient was also given Solu-Medrol, Pepcid, Benadryl, and 1 L bolus of normal saline as pre-medication for an iodine allergy. PAST MEDICAL HISTORY: The patient has a significant medical history for CHF, pacemaker, atrial fibrillation with ablation, hypertension, gout, shingles, and MD. PAST SURGICAL HISTORY: The patient has a right-sided chest wall pacemaker approximately 2 to 3 years ago. FAMILY HISTORY: Noncontributory. SOCIAL HISTORY: The patient reports smoking 7 to 8 cigarettes per day for 40 years. Denies any illicit drug use. Denies any alcohol use. PSYCHIATRIC HISTORY: The patient denies any psychiatric illnesses. ALLERGIES: THE PATIENT REPORTS ALLERGIES TO IODINE AND SPIRONOLACTONE. HOME MEDICATIONS: 1. Lipitor 40 mg p.o. daily. 2. Aspirin 81 mg p.o. daily. 3. Carvedilol 25 mg one tablet p.o. daily. 4. Cholecalciferol 1000 units p.o. daily. 5. Warfarin 5 mg p.o. daily. 6. Colchicine-probenecid 0.5 mg-500 mg tablet, directions are one tablet p.o. b.i.d. 7. Pantoprazole 40 mg p.o. daily. 8. Torsemide 20 mg p.o. daily in the a.m. 9. Potassium chloride 10 mEq p.o. daily. 10. Ferrous sulfate 65 mg p.o. daily. REVIEW OF SYSTEMS: The patient reports some back pain and spasms. All other systems reviewed and are negative unless otherwise stated in the HPI. PHYSICAL EXAMINATION: VITAL SIGNS: Temperature 98.4 oral, blood pressure 128/82, pulse 82, respirations 16, SpO2 97% on room air. HEENT: Head, atraumatic and normocephalic. Eyes, PERRLA. Extraocular muscles intact. Sclerae nonicteric. ENT, normal tympanic membranes. Oropharynx is clear. Uvula midline. Moist mucous membranes. NECK: Supple. Trachea midline. No lymphadenopathy. RESPIRATORY: Decreased breath sounds in bilateral lower lobes. No rhonchi, rales, or wheezes. CARDIOVASCULAR: Regular rate and rhythm. No murmurs, rubs, or gallops. The patient has a right-sided chest wall pacemaker in place. GI: Abdomen is soft and nontender. No hepatosplenomegaly. No guarding. No peritoneal signs. EXTREMITIES: Upper extremities, full range of motion, palpable radial pulses. No clubbing or cyanosis. NEUROLOGIC: The patient is alert and oriented x3 to person, place, and person. SKIN: Clean, dry, and intact. LABORATORY DATA: Sodium 134, potassium 3.2, chloride 88, carbon dioxide 36, BUN is 27, creatinine is 2.17, glucose 129, calcium 11.4, bilirubin 1.9, AST 35, ALT 37. Creatine kinase is 244, CK-MB 3.3. Troponins 0.143, next 0.116, next 0.130. Cholesterol 228, triglycerides 157, LDL 135, HDL 62. WBC 13.7, hemoglobin 16.9, hematocrit 50.2, platelets 182. Coags; PT is 13.3, INR is 1.0. EKG shows V-paced with premature atrial complexes and aberrant conduction 91 beats per minute. Bi-V pacemaker detected. Chest x-ray showed cardiomegaly with no acute process. ASSESSMENT AND PLAN: 1. Syncope. CT in the ER showed subacute right parietal infarct. We will order MRI. We will interrogate pacemaker. We will perform orthostatics. Troponins were elevated. The patient appears to have chronically elevated troponins and we will trend. We will consult Cardiology. The patient also reports that he has had an office echocardiogram in the past three months, so we will hold echo and consult Cardiology and add as needed. 2. Subacute CVA. On exam, the patient does have mild left upper extremity weakness and ataxia. We will order MRI. We will order fasting lipids. We will start the patient on aspirin. We will consult neuro and stroke team. 3. Acute kidney injury. The patient's creatinine was 2.17. His last creatinine on 08/14 was 1.34. We will perform gentle hydration with normal saline in lieu of patient's congestive heart failure. 4. Hypokalemia. The patient's potassium is 3.2. We will replace potassium with gentle hydration of IV fluids with potassium and recheck BMP in a.m. 5. Hyponatremia. We will perform gentle hydration. Recheck labs in a.m. 6. Congestive heart failure. Chest x-ray showed cardiomegaly with no acute process. We will restart the patient's home medications. 7. Chronic anticoagulation secondary to atrial fibrillation with ablation. The patient reports having ablation in [id number]. He also reports being noncompliant with his Coumadin secondary to frequent testing difficulties. Today, the patient's INR was 1.0. We will give him a full-dose aspirin, and we will appreciate Cardiology and Neurology's input, and guidance on anticoagulation therapy in the future. 8. Tobacco abuse. We will personnel counselor patient for cessation. 9. Hyperlipidemia. We will restart patient's home medications. 10. Gastrointestinal and deep venous thrombosis prophylaxis. 11. Hospital course is depending on clinical findings. Job ID: [id number] MTDD
[2018-08-19 23:08] LABS: Troponin I 0.124 ng/mL (< 0.028)
[2018-08-20] MEDS: Famotidine 20 MG TAB PO SCH ×2 (00:46→20:48)
[2018-08-20 03:15] VITALS: BMI 27.3
[2018-08-20 06:07] LABS: #Eosinphils 0.1 thou/uL (0.0-0.7); #Lymphocytes 1.8 thou/uL (1.20-3.40); #Monocytes 0.4 thou/uL (0.11-0.59); %Basophils 0.3 % (0.0-1.0); %Eosinophils 0.4 % (0.0-10.0); %Lymphocytes 14.7 % (21.0-51.0); %Monocytes 3.6 % (0.0-10.0); Hemoglobin 15.7 g/dL (14.0-18.0); Mean Corpuscular HGB CONC 33.2 g/dL (32.0-36.0); Mean Corpuscular Hemoglobin 35.2 pg (27.0-31.0); Mean Platelet Volume 8.5 fL (7.4-10.4); Platelet Count 175 thou/uL (130-400); RBC Distribution Width 12.7 % (11.5-14.5); Red Blood Cell (RBC) Count 4.45 mill/uL (4.70-6.10); White Blood Cell (WBC) Count 12.4 thou/uL (4.8-10.8)
[2018-08-20 06:31] LABS: ALT (SGPT) 33 U/L (8-55); AST (SGOT) 35 U/L (5-34); Albumin 3.9 g/dL (3.5-5.0); Alkaline Phosphatase 73 U/L (40-150); Anion Gap 19 mmol/L (10-20); BUN (Urea Nitrogen) 37 mg/dL (8.4-25.7); Bilirubin, Total 1.6 mg/dL (0.2-1.2); Calc. Creatinine Clearance 51 mL/min (70-130); Calcium 10.7 mg/dL (7.8-10.44); Carbon Dioxide 24 mmol/L (22-29); Chloride 93 mmol/L (98-107); Estimated GFR-MDRD 42; Globulin 4.5 g/dL (2.4-3.5); Glucose 136 mg/dL (70-105); Potassium 3.9 mmol/L (3.5-5.1); Protein, Total 8.4 g/dL (6.0-8.3); Sodium 132 mmol/L (136-145)
[2018-08-20] MEDS: Atorvastatin Calcium 40 MG TAB PO SCH (08:44)
[2018-08-20] MEDS ORDERED: Aspirin 325 MG TAB PO SCH (09:00)
--- NOTE | 2018-08-20 11:25 | PDOC.PN ---
- Subjective Encounter Start Date: 08/20/18 Encounter Start Time: 11:24 Subjective: admitted dure to syncope and collapse -: Found to have R parietal/temporal infart. -: Feeling better. Denied chest pain. - Objective Resuscitation Status - Order Detail: 08/19/18 18:04 Resuscitation Status Routine Co-Sign Provider: Resuscitation Status: FULL: Full Resuscitation Discussed with: patient Additional comments: Milagro Lopez, is surrogate decison maker [phone] Vital Signs & Weight: Vital Signs (12 hours) Temp Pulse Resp BP BP BP BP 08/20/18 07:46 98 F 76 16 139/89 08/20/18 04:00 97.7 F 70 12 119/80 08/20/18 01:45 152/86 H 141/73 H 125/83 08/20/18 00:00 97.8 F 72 15 140/83 Pulse Ox 08/20/18 07:46 97 08/20/18 04:00 96 08/20/18 01:45 08/20/18 00:00 95 Weight Weight 196 lb 9 oz I&O: 08/19/18 08/20/18 08/21/18 06:59 06:59 06:59 Intake Total 600 Balance 600 Result Diagrams: 08/20/18 04:47 08/20/18 04:47 Phys Exam - Physical Examination Constitutional: NAD HEENT: PERRLA, moist MMs Neck: no JVD, supple Respiratory: no rales fair air entry with some transmitted sound Cardiovascular: irregular Gastrointestinal: soft, non-tender, no distention, positive bowel sounds Musculoskeletal: no edema, pulses present Neurological: non-focal, moves all 4 limbs conscious and alert, cranial nerves 2-`12 intact. Moving all limbs symmetricallay with no drift Psychiatric: A&O x 3 Dx/Plan (1) Cerebral infarct Code(s): I63.9 - CEREBRAL INFARCTION, UNSPECIFIED Status: Acute (2) Chronic atrial fibrillation Code(s): I48.2 - CHRONIC ATRIAL FIBRILLATION Status: Acute (3) JOSE A (acute kidney injury) Code(s): N17.9 - ACUTE KIDNEY FAILURE, UNSPECIFIED Status: Acute (4) Demand ischemia of myocardium Code(s): I24.8 - OTHER FORMS OF ACUTE ISCHEMIC HEART DISEASE Status: Acute (5) Syncope and collapse Code(s): R55 - SYNCOPE AND COLLAPSE Status: Acute (6) CKD (chronic kidney disease) stage 3, GFR 30-59 ml/min Status: Chronic (7) Chronic systolic (congestive) heart failure Code(s): I50.22 - CHRONIC SYSTOLIC (CONGESTIVE) HEART FAILURE Status: Chronic (8) Hypertension Code(s): I10 - ESSENTIAL (PRIMARY) HYPERTENSION Status: Chronic Qualifiers: Hypertension type: essential hypertension Qualified Code(s): I10 - Essential (primary) hypertension (9) Gout Code(s): M10.9 - GOUT, UNSPECIFIED Status: Acute - Plan Start NS at 50 cc/hr. -: DC Coumadin and start eliquis for consistent anticoagulation. -: get Echo and UA with microscopy. -: Continue to hold diuretics and antihypertensives -: Avoid NSAIDS. * .
[2018-08-20] MEDS ORDERED: Apixaban 5 MG TAB PO SCH (11:45)
[2018-08-20] MEDS: Sodium Chloride 0.9% 1,000 ML IV SCH (11:56)
[2018-08-20 15:15] LABS: Bilirubin Negative (Negative); Blood, Urine Negative (Negative); Clarity CLEAR (Clear); Glucose, Urine (Dipstick) Negative (Negative); Leukocyte Negative (Negative); Nitrite Negative (Negative); Protein, Urine (Dipstick) Negative (Neg-Trace); Specific Gravity, Urine 1.024 (1.002-1.036)
[2018-08-20 15:18] LABS: Bacteria/HPF None Seen HPF (None Seen); Hyaline Casts/LPF 0-3 HYALINE CAST LPF (0-3 Hyaline); Pathc Cast-AUWi Flag 0.13 (0-2.49); RBC/HPF 0-3 HPF (0-3); Squamous Epithelial None Seen HPF (0-3); WBC/HPF None Seen HPF (0-3)
[2018-08-20 15:22] LABS: Urine Culture Reflex No No
[2018-08-20 15:27] LABS: Amphetamine Detected (NotDetected); Cocaine Metabolite Screen Not Detected (NotDetected); Medtox Reader # READER 1; Methamphetamine Detected (NotDetected); Opiate Screen Not Detected (NotDetected); Phencyclidine (PCP) Not Detected (NotDetected); THC/Cannabinoid Screen Not Detected (NotDetected)
[2018-08-20 15:28] LABS: Barbiturates Screen Not Detected (NotDetected); Benzodiazepine Screen Not Detected (NotDetected); Methadone Not Detected (NotDetected); Oxycodone Screen Not Detected (NotDetected); Tricyclic Screen Not Detected (NotDetected)
[2018-08-20 15:29] LABS: Medtox Control Line Valid? VALID (VALID)
[2018-08-20] MEDS: Apixaban 5 MG TAB PO SCH (20:48)
--- NOTE | 2018-08-20 23:55 | CON ---
DATE OF CONSULTATION: 08/20/2018 CONSULTING PHYSICIAN: Hospitalist Service. IMPRESSION: 1. Probable cardioembolic stroke secondary to his congestive heart failure and subtherapeutic Coumadin. 2. Continue Eliquis. 3. Cardiology opinion. HISTORY OF PRESENT ILLNESS: Mr. Aldrich is a 58-year-old gentleman who was at the grocery store when he suddenly lost consciousness. He does not report any known seizure type of event associated with it. When he awoke, he was helped up to a chair. He was subsequently brought to the hospital for evaluation. His CT angiogram showed some heavy calcium buildup in the internal carotids, but no definite occlusions. His CT of the brain showed a right parotid temporal region of early infarct. Due to his pacemaker, he cannot have an MRI. His INR was 1.0. He admits that he was not going to the [facility] regularly. PAST MEDICAL HISTORY: Atrial fibrillation, CHF, hypertension. PAST SURGICAL HISTORY: Pacemaker implantation. SOCIAL HISTORY: No illicit drug use. FAMILY HISTORY: Noncontributory. REVIEW OF SYSTEMS: Ten-system review of systems is otherwise unremarkable. PHYSICAL EXAMINATION: GENERAL: He is a well-nourished, middle-aged man, in no acute distress. VITAL SIGNS: Have been stable. He is afebrile. HEENT: Pupils are equal and reactive. Conjunctivae are clear. Oropharynx is clear. NECK: Supple. No lymphadenopathy. EXTREMITIES: No edema. NEUROLOGIC: He is alert and appropriate. His speech is fluent and clear. Cranial nerves are intact. Motor exam shows equal strength. Sensations intact to touch. No tremor or dysmetria is present. No abnormal movements are seen. He can walk independently. LABORATORY DATA: Imaging was reviewed. Cholesterol ratio was 3.7. SUMMARY: This is a middle-aged man with a cardioembolic event. I agree with the change to Eliquis which will simplify the situation for him. I would continue his statin. I do not think aspirin would be needed, but we will leave that up to Cardiology. Job ID: [id number]
[2018-08-21] MEDS: Sodium Chloride 0.9% 1,000 ML IV SCH (05:08)
[2018-08-21] MEDS ORDERED: Cyclobenzaprine 10 MG TAB PO PRN (05:59)
[2018-08-21] MEDS ORDERED: HYDROcodone/Acetaminophen 10/325 mg Tablet PO PRN (05:59)
[2018-08-21] MEDS ORDERED: Ondansetron PF 4 MG/2 ML Vial IVP PRN (06:03)
[2018-08-21] MEDS ORDERED: Sodium Chloride 0.65% Nasal 44 ML BOT EA NARE PRN (06:03)
[2018-08-21] MEDS ORDERED: Artificial Tear Sol 15 ML BOT EA EYE PRN (06:03)
[2018-08-21] MEDS ORDERED: hydrALAZINE 20 MG/ML VIAL SLOW IVP PRN (06:03)
[2018-08-21] MEDS ORDERED: Loratadine 10 MG TAB PO PRN (06:03)
[2018-08-21] MEDS ORDERED: Loperamide HCl 2 MG CAP PO PRN (06:03)
[2018-08-21] MEDS ORDERED: Cepastat Lozenges 1 LOZ PO PRN (06:03)
[2018-08-21] MEDS ORDERED: Diabetic Tussin 200 MG/10 ML UDCUP PO PRN (06:03)
[2018-08-21] MEDS ORDERED: Ondansetron ODT 4 MG TAB PO PRN (06:03)
[2018-08-21 06:10] LABS: Anion Gap 16 mmol/L (10-20); BUN (Urea Nitrogen) 34 mg/dL (8.4-25.7); BUN/Creatinine Ratio 24.46; Calc. Creatinine Clearance 73 mL/min (70-130); Calcium 10.4 mg/dL (7.8-10.44); Carbon Dioxide 28 mmol/L (22-29); Chloride 96 mmol/L (98-107); Estimated GFR-MDRD 63; Glucose 101 mg/dL (70-105); Phosphorus 2.4 mg/dL (2.3-4.7); Potassium 3.5 mmol/L (3.5-5.1); Sodium 136 mmol/L (136-145)
[2018-08-21] MEDS ORDERED: Zolpidem Tartrate 5 MG TAB PO PRN (06:16)
[2018-08-21] MEDS ORDERED: Carvedilol 25 MG TAB PO SCH (08:00)
[2018-08-21 08:15] LABS: Free T4 (Free Thyroxine) 1.23 ng/dL (0.70-1.48)
[2018-08-21] MEDS ORDERED: Cyanocobalamin (Vitamin B-12) 1,000 MCG TAB PO SCH (09:00)
[2018-08-21] MEDS ORDERED: Pantoprazole 40 MG GRANULES PACKET PO SCH (09:00)
[2018-08-21] MEDS ORDERED: Aspirin 81 mg Enteric Coated Tablet PO SCH (09:00)
[2018-08-21] MEDS: Apixaban 5 MG TAB PO SCH (09:32)
[2018-08-21] MEDS: Atorvastatin Calcium 40 MG TAB PO SCH (09:32)
[2018-08-21 11:55] VITALS: BP 108/74; TEMP 97.9
--- NOTE | 2018-08-21 13:45 | DIS ---
DATE OF ADMISSION: 08/19/2018 DATE OF DISCHARGE: 08/21/2018 PRIMARY CARE PHYSICIAN: Dr. Eugenio Heard. DISCHARGE DISPOSITION: Home. PRIMARY DISCHARGE DIAGNOSES: 1. Syncope. 2. Subacute posterior right temporal and parietal infarct. 3. Amphetamine abuse. 4. Acute kidney failure, prerenal. SECONDARY DISCHARGE DIAGNOSES: 1. Chronic systolic congestive heart failure stage C. 2. Nonischemic cardiomyopathy. 3. Macrocytosis. 4. Hypertension. 5. Gout. 6. Chronically elevated troponin. 7. Chronic kidney disease stage 3. 8. Chronic atrial fibrillation. 9. Chronic anticoagulation. 10. Chronic low back pain. 11. Gastroesophageal reflux disease. PRIMARY PROCEDURE/OPERATION: None. RADIOLOGICAL INVESTIGATION: Chest x-ray on admission showed cardiomegaly without acute process. CT brain showed subacute infarction in the posterior parietal region. CT [place] negative for any stenosis or occlusion. Echocardiography done result is pending. SIGNIFICANT LABORATORY DATA: WBC 12.4, hemoglobin 15.7, platelet 175, INR 1.0. Sodium 136, creatinine 1.39, phosphorus 2.4, albumin 4.0, free T4 of 1.2, TSH 0.23. Urinalysis normal. Urine drug screen showed amphetamine and methamphetamine. DISCHARGE MEDICATIONS: 1. [place] 1 or 2 tablets q.4 hourly p.r.n. 2. Lipitor 40 mg p.o. daily. 3. Coreg 25 mg p.o. b.i.d. 4. Vitamin D3 1000 units p.o. daily. 5. Colchicine 0.6 mg p.o. b.i.d. p.r.n. for gout attack. 6. Flexeril 10 mg t.i.d. p.r.n. 7. Protonix 40 mg daily. 8. Entresto 1 tablet p.o. b.i.d. 9. Demadex 20 mg daily. 10. Ambien 10 mg p.o. at bedtime p.r.n. 11. Ecotrin 81 mg p.o. daily. 12. Vitamin B12 1000 mcg p.o. daily. 13. Potassium chloride 20 mEq p.o. daily. 14. Eliquis 5 mg p.o. b.i.d. CONTRAINDICATION: None. CODE STATUS: Full code. INPATIENT CONSULTANTS: 1. Dr. Satish Jones, neurologist was consulted while in hospital. 2. Dr. Cuevas was consulted while in hospital. ALLERGIES: SPIRONOLACTONE, IODINE. DISCHARGE PLAN: Post hospital, the patient is instructed to follow up with primary care physician. The patient is instructed to follow up with Cardiology and Neurology as instructed. HOSPITAL COURSE: A 58-year-old male, who was admitted by Marisol Ndiaye. Please see her H and P for further detail. The patient was admitted for syncopal episode. In the emergency room, CT brain showed subacute infarction in the posterior parietal region on the right side. The patient was not having any neurological deficit. He has chronically elevated troponin. Subsequently in the emergency room, the patient had CT [place], which was negative for any occlusion. Chest x-ray showed cardiomegaly without any acute process. His urine drug screen was positive for amphetamine and methamphetamine, and he was also found with acute kidney failure with creatinine was 2.17, which was improved to 1.39 on discharge to baseline level. Neurology saw this patient and they recommended to continue Eliquis therapy and Neurology also recommended Cardiology consultation and that is why Dr. Cuevas was consulted. Echocardiography was done during this admission, result is pending. At this point, the patient is euvolemic. His renal function has been improved to normal. He is completely asymptomatic. He has no neurological deficit. I have seen and examined the patient at bedside. PHYSICAL EXAMINATION: VITAL SIGNS: Today currently temperature 97.9, pulse 69, respiratory rate 16, saturation 94% on room air, blood pressure 108/74, weight 197 pounds. GENERAL: The patient is currently alert, awake, no obvious acute distress. HEAD: Normocephalic and atraumatic. LUNGS: Clear without any rhonchi. CARDIAC: S1 and S2, regular without any murmur. ABDOMEN: Soft and benign. EXTREMITIES: No edema. NEUROLOGIC: Nonfocal examination. Overall, the patient is medically stable for discharge and he will follow up with primary care physician and Cardiology as instructed. Job ID: [id number]
--- NOTE | 2018-08-21 14:35 | CON ---
DATE OF CONSULTATION: REASON FOR CONSULTATION: Stroke. HISTORY OF PRESENT ILLNESS: Mr. Aldrich is a pleasant 58-year-old gentleman, very well known to myself, who comes to the hospital for dizziness. He was diagnosed with an acute stroke. He had subtherapeutic INR at that time. He is on Coumadin for history of paroxysmal atrial fibrillation that has been ablated in the past. He also has a history of nonischemic cardiomyopathy with a reduced EF and an AICD in place. He was started on Eliquis and has not had any recurrence since. He denies any chest pain, tightness, pressure, or shortness of breath. PAST MEDICAL HISTORY: 1. Nonischemic cardiomyopathy with severely reduced EF. 2. AICD in place. 3. Paroxysmal atrial fibrillation, status post ablation. 4. Hypertension. 5. Gout. 6. Shingles. PAST SURGICAL HISTORY: AICD placed in the left chest, eroded out and had to be replaced and now was placed on the right side. FAMILY HISTORY: Noncontributory. SOCIAL HISTORY: He smokes half a pack a day for last 40 years. No drug use. No alcohol use. OUTPATIENT MEDICATIONS: Include: 1. Lipitor 40 mg a day. 2. Aspirin 81 a day. 3. Carvedilol 25 mg twice a day. 4. Cholecalciferol 1000 units a day. 5. Warfarin. 6. Colchicine/probenecid. 7. Pantoprazole. 8. Torsemide 20 mg a day. 9. Potassium chloride 10 mEq a day. 10. Ferrous sulfate 65 mg a day. ALLERGIES: SPIRONOLACTONE AND IODINE. REVIEW OF SYSTEMS: A 12-point review of systems was done and negative unless stated in the history of present illness. PHYSICAL EXAMINATION: VITAL SIGNS: Temperature 98.3, pulse 65, respiratory rate 20, saturating 96% on room air, and blood pressure 128/79. GENERAL: Awake, alert, and oriented x3, in no distress. HEENT: Normocephalic and atraumatic. NECK: Supple. LUNGS: Clear. CARDIOVASCULAR: S1 and S2. No S3 or S4. No murmurs or rubs. ABDOMEN: Soft. Positive bowel sounds. EXTREMITIES: No edema. SKIN: Warm and dry. LABORATORY DATA: Laboratory work was reviewed, CBC, CMP. Chemistry, his creatinine is dropping to 1.39. Toxicology was positive for methamphetamines. ASSESSMENT: 1. Acute cerebrovascular accident. 2. Subtherapeutic INR at 1.0 on admission suggestive that he has not been taking any of his warfarin. 3. Paroxysmal atrial fibrillation, status post ablation, likely recurrence of this. No evidence of this on telemetry. PLAN: 1. Agree with Eliquis. 2. Stressed need to be compliant with his medications as this is most likely the reason why he had the stroke. 3. He will be given a coupon for his Eliquis and I will see him in 1 month. 4. He may be discharged home from the cardiac perspective. Thank you for letting us to participate in the care of your patient. We will follow. Job ID: [id number]
--- NOTE | 2018-08-21 16:21 | CT ---
CT ANGIOGRAM NECK WITH CONTRAST CT ANGIOGRAM OF BRAIN WITH CONTRAST: DATE: 08/19/2018 HISTORY: 58-year-old male with right MCA territory subacute infarction. TECHNIQUE: After IV contrast injection, arterial bolus chasing technique scan performed from 3 cm inferior to th e ness to vertex of head. Coronal and sagittal 3-D MIP reconstructions. FINDINGS: Streak artifact from right-sided pacemaker generator, pacemaker leads in the superior vena cava, and from dense contrast material in right-sided veins, there is severe obscuring of much of the right subclavian artery and very proximal portion of right common carotid artery. No high-grade stenosis in the rest of the right common carotid artery. Bovine origin of the left common carotid artery with no evidence of high-grade stenosis. No high-grade stenosis of left proximal subclavian artery. Distal portions are is obscured by streak artifact from contrast material in collateral veins. Numerous collateral veins throughout the perivertebral space obscures the proximal and mid portions of the simone ateral vertebral arteries. Atherosclerotic calcification of bilateral proximal internal carotid arteries, including carotid bulb s, without high-grade stenosis. Intracranially, right vertebral artery is dominant. No high-grade short segment acquired stenosis or occlusion identified in anterior or posterior circulation (except for the carotid siphons, which are difficult to evaluate because of heavy atherosclerotic plaque) involving proximal vessels. This i ncludes patent M1 segments of bilateral middle cerebral arteries, without high-grade stenosis, as well as anterior cerebral arteries. IMPRESSION: 1) suboptimal evaluation of proximal portions of major arteries of neck for reasons given above. 2) no occlusion, thrombus, or high-grade stenosis of proximal vessels of [place], including M1 segments of bilateral middle cerebral arteries. Transcribed Date/Time: 08/21/2018 4:21 PM
== END 2018-08-21 13:57 | disposition home or self-care (01) ==
LOC: ERS 11:14 → ERHOLD 16:00 → 2SE 21:05
PROVIDERS: ADMIT Internal Medicine; ATTEND Internal Medicine
DX: I63.9 Cerebral infarction, unspecified (principal); R53.1 Weakness; R27.0 Ataxia, unspecified; R55 Syncope and collapse; F15.10 Other stimulant abuse, uncomplicated; I13.0 Hypertensive heart and chronic kidney disease with heart failure and stage 1 through stage 4 chronic kidney disease, or unspecified chronic kidney disease; I50.22 Chronic systolic (congestive) heart failure; N17.9 Acute kidney failure, unspecified; N18.3 Chronic kidney disease, stage 3 (moderate); I24.8 Other forms of acute ischemic heart disease; I42.8 Other cardiomyopathies; D50.9 Iron deficiency anemia, unspecified; I48.0 Paroxysmal atrial fibrillation; M10.9 Gout, unspecified; R74.8 Abnormal levels of other serum enzymes; K21.9 Gastro-esophageal reflux disease without esophagitis; E87.6 Hypokalemia; E87.1 Hypo-osmolality and hyponatremia; E78.5 Hyperlipidemia, unspecified; I25.2 Old myocardial infarction; F17.210 Nicotine dependence, cigarettes, uncomplicated; Z95.0 Presence of cardiac pacemaker; Z88.8 Allergy status to other drugs, medicaments and biological substances; Z91.041 Radiographic dye allergy status; Z79.01 Long term (current) use of anticoagulants; Z79.899 Other long term (current) drug therapy
CPT/HCPCS: 70450; 70496; 70498; 71045; 72125; 80053; 80061; 80069; 80306; 81001; 82550; 82553; 84439; 84481; 84484 ×2; 85025; 85610; 93005; 93306; 96361 ×3; 96374; 96375; 97139 ×4; 99285; G0378 ×2; 36415; 84443; J1200; J2930; J3480; Q9966; S0028

== ENCOUNTER 2018-10-16 11:50 | Emergency (ER) | payer MEDICARE, MEDICAID ==
--- NOTE | 2018-10-16 13:03 | RAD ---
RADIOGRAPH CHEST 2 VIEWS: DATE: 10/16/18 HISTORY: 58-year-old male with chest pain. FINDINGS: There is cardiomegaly. There is no evidence of air space density, pulmonary edema, or pneumothorax. T here is no pleural effusion. There is a right subclavian AICD. The cardiac shadow appears slightly l arger than on 07/15/18. IMPRESSION: 1. No acute pulmonary findings. 2. Cardiomegaly without congestive heart failure. 3. Automatic implantable cardioverter-defibrillator. celia [] POS: HECTOR
[2018-10-16 13:25] LABS: #Basophils 0.1 thou/uL (0.0-0.2); #Eosinphils 0.2 thou/uL (0.0-0.7); #Lymphocytes 2.1 thou/uL (1.20-3.40); #Monocytes 0.9 thou/uL (0.11-0.59); %Basophils 0.7 % (0.0-1.0); %Eosinophils 2.4 % (0.0-10.0); %Lymphocytes 20.3 % (21.0-51.0); %Monocytes 8.5 % (0.0-10.0); Hemoglobin 15.7 g/dL (14.0-18.0); Mean Corpuscular HGB CONC 33.4 g/dL (32.0-36.0); Mean Platelet Volume 8.4 fL (7.4-10.4); Platelet Count 182 thou/uL (130-400); RBC Distribution Width 12.5 % (11.5-14.5); Red Blood Cell (RBC) Count 4.49 mill/uL (4.70-6.10); White Blood Cell (WBC) Count 10.3 thou/uL (4.8-10.8)
[2018-10-16 13:39] LABS: MDiff Complete? YES; Macrocytosis SLIGHT = 6-15 cells (100X) (0-5/hpf); Platelet Morphology Comment Appears Adequate; Troponin I 0.154 ng/mL (< 0.028)
[2018-10-16 14:46] LABS: ALT (SGPT) 10 U/L (8-55); AST (SGOT) 22 U/L (5-34); Albumin 3.6 g/dL (3.5-5.0); Alkaline Phosphatase 98 U/L (40-150); Anion Gap 17 mmol/L (10-20); BUN (Urea Nitrogen) 19 mg/dL (8.4-25.7); Bilirubin, Total 1.1 mg/dL (0.2-1.2); Calc. Creatinine Clearance 0 mL/min (70-130); Calcium 11.1 mg/dL (7.8-10.44); Carbon Dioxide 28 mmol/L (22-29); Chloride 94 mmol/L (98-107); Estimated GFR-MDRD 65; Globulin 4.4 g/dL (2.4-3.5); Glucose 124 mg/dL (70-105); Potassium 3.2 mmol/L (3.5-5.1); Sodium 136 mmol/L (136-145)
[2018-10-16] MEDS ORDERED: Aspirin Chewable 81 MG TAB ONE (15:05)
== END 2018-10-16 15:45 | disposition home or self-care (01) ==
LOC: ERS 11:50
DX: I47.2 Ventricular tachycardia (principal); R79.89 Other specified abnormal findings of blood chemistry; Z71.6 Tobacco abuse counseling; I11.0 Hypertensive heart disease with heart failure; I50.9 Heart failure, unspecified; M10.9 Gout, unspecified; F17.210 Nicotine dependence, cigarettes, uncomplicated; Z79.899 Other long term (current) drug therapy
CPT/HCPCS: 36415; 71046; 80053; 84484; 85025; 93005; 99406

== ENCOUNTER 2018-11-12 05:22 | Emergency (ER) | payer MEDICARE, MEDICAID ==
[2018-11-12] MEDS ORDERED: HYDROcodone/Acetaminophen 10/325 mg Tablet ONE (05:52)
== END 2018-11-12 06:02 | disposition home or self-care (01) ==
LOC: ERS 05:22
DX: M10.9 Gout, unspecified (principal); I11.0 Hypertensive heart disease with heart failure; I48.91 Unspecified atrial fibrillation; D50.9 Iron deficiency anemia, unspecified; G47.00 Insomnia, unspecified; I50.9 Heart failure, unspecified; I49.9 Cardiac arrhythmia, unspecified; Z71.6 Tobacco abuse counseling; Z79.899 Other long term (current) drug therapy; Z79.01 Long term (current) use of anticoagulants
CPT/HCPCS: 99406

== ENCOUNTER 2018-11-19 10:04 | Emergency (ER) | payer MEDICARE, MEDICAID ==
--- NOTE | 2018-11-19 10:46 | RAD ---
XR Chest 1 View Portable HISTORY: AICD problems COMPARISON: 11/02/2018 FINDINGS: The heart is enlarged. The aorta is tortuous. Right-sided AICD remains in place. The lungs are well expanded without lobar consolidation, pneumothoraces, merlin pulmonary edema or pleural effusions. IMPRESSION: No radiographic evidence of acute cardiopulmonary process.
[2018-11-19 11:37] LABS: ALT (SGPT) 292 U/L (8-55); AST (SGOT) 176 U/L (5-34); Albumin 3.9 g/dL (3.5-5.0); Alkaline Phosphatase 117 U/L (40-150); Anion Gap 13 mmol/L (10-20); BUN (Urea Nitrogen) 19 mg/dL (8.4-25.7); Calc. Creatinine Clearance 0 mL/min (70-130); Calcium 9.7 mg/dL (7.8-10.44); Carbon Dioxide 29 mmol/L (22-29); Chloride 95 mmol/L (98-107); Estimated GFR-MDRD 88; Globulin 3.8 g/dL (2.4-3.5); Glucose 75 mg/dL (70-105); Magnesium 1.4 mg/dL (1.6-2.6); Potassium 3.3 mmol/L (3.5-5.1); Protein, Total 7.7 g/dL (6.0-8.3); Sodium 134 mmol/L (136-145)
[2018-11-19 11:50] LABS: #Basophils 0.1 thou/uL (0.0-0.2); #Eosinphils 0.2 thou/uL (0.0-0.7); #Lymphocytes 2.6 thou/uL (1.20-3.40); #Monocytes 1.1 thou/uL (0.11-0.59); %Eosinophils 1.6 % (0.0-10.0); %Lymphocytes 23.5 % (21.0-51.0); %Monocytes 10.2 % (0.0-10.0); %Neutrophils 63.7 % (42.0-75.0); Band 1 % (5-11); Eosinophils 1 % (0-10); Hemoglobin 14.8 g/dL (14.0-18.0); Lymphocytes 29 % (21-51); MDiff Complete? YES; Macrocytosis SLIGHT = 6-15 cells (100X) (0-5/hpf); Mean Corpuscular HGB CONC 33.2 g/dL (32.0-36.0); Mean Corpuscular Hemoglobin 35.2 pg (27.0-31.0); Mean Platelet Volume 9.2 fL (7.4-10.4); Monocytes 7 % (0-10); Myelocyte 1 % (0-0); Neutrophil 61 % (42-75); Platelet Count 130 thou/uL (130-400); Platelet Morphology Comment Appears Adequate; RBC Distribution Width 13.4 % (11.5-14.5); Red Blood Cell (RBC) Count 4.21 mill/uL (4.70-6.10); White Blood Cell (WBC) Count 11.1 thou/uL (4.8-10.8)
[2018-11-19 12:00] LABS: CKMB 3.3 ng/mL (0-6.6)
[2018-11-19] MEDS ORDERED: Furosemide 40 MG/4 ML VIAL ONE (12:24)
[2018-11-19] MEDS ORDERED: Potassium Chloride 20 MEQ TAB ONE (12:24)
[2018-11-19] MEDS ORDERED: Magnesium 2 GM/50 ML BAG (IN WATER) ONE (12:26)
== END 2018-11-19 13:17 | disposition home or self-care (01) ==
LOC: ERS 10:04
DX: E87.6 Hypokalemia (principal); E83.42 Hypomagnesemia; I11.0 Hypertensive heart disease with heart failure; I50.9 Heart failure, unspecified; I49.9 Cardiac arrhythmia, unspecified; I48.91 Unspecified atrial fibrillation; D50.9 Iron deficiency anemia, unspecified; M10.9 Gout, unspecified; G47.00 Insomnia, unspecified; F17.210 Nicotine dependence, cigarettes, uncomplicated; Z79.899 Other long term (current) drug therapy; Z79.01 Long term (current) use of anticoagulants
CPT/HCPCS: 36415; 71045; 80053; 82553; 83735; 83880; 84484; 85025; 93005; 96365; 96375; J1940; J3475

== ENCOUNTER 2018-12-01 04:10 | Observation (INO) | payer MEDICARE, MEDICAID ==
[2018-12-01] MEDS ORDERED: Ondansetron PF 4 MG/2 ML Vial ONE (04:24)
[2018-12-01] MEDS ORDERED: Mag-Al 1200 mg/1200 mg/30 ML UDCUP ONE (04:25)
[2018-12-01] MEDS ORDERED: Lidocaine Viscous Sol 2% 15 ml UD Cup ONE (04:25)
[2018-12-01 04:31] LABS: #Basophils 0.1 thou/uL (0.0-0.2); #Eosinphils 0.1 thou/uL (0.0-0.7); #Lymphocytes 2.5 thou/uL (1.20-3.40); #Monocytes 0.9 thou/uL (0.11-0.59); #Neutrophils 5.6 thou/uL (1.40-6.50); %Basophils 1.1 % (0.0-1.0); %Eosinophils 1.5 % (0.0-10.0); %Lymphocytes 27.3 % (21.0-51.0); %Monocytes 9.7 % (0.0-10.0); %Neutrophils 60.4 % (42.0-75.0); Hemoglobin 14.2 g/dL (14.0-18.0); Mean Corpuscular HGB CONC 33.9 g/dL (32.0-36.0); Mean Corpuscular Hemoglobin 35.2 pg (27.0-31.0); Mean Platelet Volume 7.3 fL (7.4-10.4); Platelet Count 166 thou/uL (130-400); Red Blood Cell (RBC) Count 4.03 mill/uL (4.70-6.10); White Blood Cell (WBC) Count 9.3 thou/uL (4.8-10.8)
[2018-12-01 04:51] LABS: ALT (SGPT) 41 U/L (8-55); AST (SGOT) 52 U/L (5-34); Albumin 3.6 g/dL (3.5-5.0); Alkaline Phosphatase 85 U/L (40-150); Anion Gap 15 mmol/L (10-20); BUN (Urea Nitrogen) 23 mg/dL (8.4-25.7); Calc. Creatinine Clearance 0 mL/min (70-130); Calcium 10.3 mg/dL (7.8-10.44); Carbon Dioxide 27 mmol/L (22-29); Chloride 95 mmol/L (98-107); Estimated GFR-MDRD 62; Globulin 3.9 g/dL (2.4-3.5); Glucose 84 mg/dL (70-105); Lipase 18 U/L (8-78); Potassium 3.4 mmol/L (3.5-5.1); Protein, Total 7.5 g/dL (6.0-8.3); Sodium 134 mmol/L (136-145)
[2018-12-01 06:02] LABS: Bacteria/HPF None Seen HPF (None Seen); Bilirubin Negative (Negative); Blood, Urine Negative (Negative); Clarity Turbid (Clear); Glucose, Urine (Dipstick) Normal (Negative); Leukocyte 25 Leu/uL (Negative); Nitrite Negative (Negative); Protein, Urine (Dipstick) 30 mg/dL (Neg-Trace); RBC/HPF 0-3 HPF (0-3); Squamous Epithelial 0-3 HPF (0-3); Urobilinogen 6 mg/dL (Less than 2); WBC/HPF 0-3 HPF (0-3)
[2018-12-01] MEDS ORDERED: Morphine 4 MG/ML VIAL ONE (06:03)
[2018-12-01] MEDS ORDERED: Pantoprazole 40 MG VIAL ONE (06:03)
[2018-12-01 06:11] LABS: CKMB 2.1 ng/mL (0-6.6)
--- NOTE | 2018-12-01 06:24 | PDOC.FPRHP ---
- History of Present Illness Chief Complaint: Epigastric Pain History of Present Illness: 58yo AAM with h/o HTN, CHF, Afib, CHF with Pacemaker/defibrillator, presents for epigastric pain since 1400 the day prior to admission. Pain described as a "biting/cramping" pain that is intermittant and lasts 5-10 minutes occurring every 15 minutes. Rates pain as 10/10. Pt does not radiate, no associated SOB, n /v, fever/chills. Pain occurred while lying down to rest, no meals prior to pain onset. He has had previous pain last week and states he was told it was " GI in nature." Denies any recent trauma or stain. Does endorse non-bloody, diarrhea for past day, occurring 3-4 times. No sick contacts. Decreased PO intake for past few days. States pain was resolved with GI cocktail in ED. ED Course: Given morphine 4mg, protonix 40mg, Zofran 4mg, and GI cocktail with relief of sxs. - Allergies/Adverse Reactions Allergies Allergy/AdvReac Type Severity Reaction Status Date / Time iodine Allergy Mild Hives Verified 12/01/18 07:52 spironolactone Allergy Verified 12/01/18 07:52 - Home Medications Medication Instructions Recorded Confirmed Type Aspirin [Ecotrin Low Strength] 81 mg PO DAILY #0 tab 04/21/13 12/01/18 Rx Cholecalciferol (Vitamin D3) 1,000 unit PO DAILY 09/05/13 12/01/18 History [D3-2000] Pantoprazole [Protonix] 40 mg PO DAILY 08/20/18 12/01/18 History Zolpidem Tartrate [Ambien] 10 mg PO HS PRN 08/20/18 12/01/18 History Potassium Chloride 10 meq PO DAILY 11/03/18 12/01/18 History Apixaban [Eliquis] 5 mg PO BID #60 tab 11/05/18 12/01/18 Rx Carvedilol [Coreg] 3.125 mg PO BID #60 tab 11/05/18 12/01/18 Rx Magnesium 400 mg PO DAILY #30 tablet 11/05/18 12/01/18 Rx Sacubitril/Valsartan [Entresto 24 1 tab PO BID #60 tab 11/05/18 12/01/18 Rx mg-26 mg Tablet] Torsemide [Demadex] 20 mg PO DAILY #30 tab 11/05/18 12/01/18 Rx Amiodarone [Cordarone] 200 mg PO DAILY 12/01/18 12/01/18 History Comments: Pt is no longer taking steroid dose mikel - History PMHx: HTN, A.fib, CHF, Gout, Sleep Apnea (no CPAP), Hx Shingles, HLD PSHx: Pacemaker/Defribrilator (2016), Ablation FHx: HTN, Father- Heart Attack, Sister-Diabetes, Unsure Cancer Social: 4-5 cigs a day, 40 yr 1ppd hx, Reports alcohol use- 4-5 beers a weekend , Denies illicit drug use. Lives alone. - Review of Systems General: denies: fever/chills, weight/appetite/sleep changes, night sweats, fatigue Eyes: denies: eye pain, vision changes ENT: reports: nasal congestion. denies: rhinorrhea Respiratory: reports: congestion. denies: cough, shortness of breath Cardiovascular: reports: chest pain Gastrointestinal: reports: diarrhea (3-4 loose stools for last few days), abdominal pain. denies: nausea, vomiting, constipation Genitourinary: denies: incontinence Skin: denies: rashes, lesions Musculoskeletal: reports: pain. denies: tenderness Neurological: denies: numbness, seizure, weakness Psychological: denies: anxiety, depression - Vital signs BP: [116/82] HR: [71] RR: [18] Tmax: [97.9] Pox: [96]% on [RA] Wt: [90kg] - Physical Exam Constitutional: NAD, awake, alert and oriented (sleepy but arouses to voice and answers appropriately.), well developed HEENT: PERRLA, EOMI, other (dry MM) Neck: supple, trachea midline Heart: RRR, normal S1/S2, pulses present, no edema, other (2/6 systolic ejection murmur) Lungs: CTAB, no respiratory distress, good air movement, no rales/rhonchi, no wheezing Abdomen: soft, bowel sounds present, no masses/distention, other (mildly TTP over epigastric region, no rebound or guarding. negative marino's and mcburney' s sign.) Musculoskeletal: normal structure Neurological: no focal deficit, CN II-XII intact, normal sensation Skin: no rash/lesions Heme/Lymphatic: no unusual bruising or bleeding Psychiatric: normal mood and affect FMR H&P: Results - Labs Result Diagrams: 12/01/18 04:22 12/01/18 04:22 Lab results: WBC 9.3 thou/uL (4.8-10.8) 12/01/18 04:22 Hgb 14.2 g/dL (14.0-18.0) 12/01/18 04:22 Hct 41.8 % (42.0-52.0) L 12/01/18 04:22 MCV 104.0 fL (78.0-98.0) H 12/01/18 04:22 Plt Count 166 thou/uL (130-400) 12/01/18 04:22 Neutrophils % 60.4 % (42.0-75.0) 12/01/18 04:22 Sodium 134 mmol/L (136-145) L 12/01/18 04:22 Potassium 3.4 mmol/L (3.5-5.1) L 12/01/18 04:22 Chloride 95 mmol/L (98-107) L 12/01/18 04:22 Carbon Dioxide 27 mmol/L (22-29) 12/01/18 04:22 BUN 23 mg/dL (8.4-25.7) 12/01/18 04:22 Creatinine 1.42 mg/dL (0.7-1.3) H 12/01/18 04:22 Glucose 84 mg/dL (70-105) 12/01/18 04:22 Calcium 10.3 mg/dL (7.8-10.44) 12/01/18 04:22 Total Bilirubin 2.0 mg/dL (0.2-1.2) H 12/01/18 04:22 AST 52 U/L (5-34) H 12/01/18 04:22 ALT 41 U/L (8-55) 12/01/18 04:22 Alkaline Phosphatase 85 U/L (40-150) 12/01/18 04:22 CK-MB (CK-2) 2.1 ng/mL (0-6.6) 12/01/18 04:23 Serum Total Protein 7.5 g/dL (6.0-8.3) 12/01/18 04:22 Albumin 3.6 g/dL (3.5-5.0) 12/01/18 04:22 Lipase 18 U/L (8-78) 12/01/18 04:22 Urine Ketones Negative mg/dL (Negative) 12/01/18 05:49 Urine Blood Negative (Negative) 12/01/18 05:49 Urine Nitrite Negative (Negative) 12/01/18 05:49 Ur Leukocyte Esterase 25 Froylan/uL (Negative) 12/01/18 05:49 Urine RBC 0-3 HPF (0-3) 12/01/18 05:49 Urine WBC 0-3 HPF (0-3) 12/01/18 05:49 Ur Squamous Epith Cells 0-3 HPF (0-3) 12/01/18 05:49 Urine Bacteria None Seen HPF (None Seen) 12/01/18 05:49 - EKG Interpretation EKG: v-paced, similar to previous EKG - Radiology Interpretation Chest x-ray Status: image reviewed by me (Report pending - AICD in place, significant cardiomegaly, sharp costdiaphragmatic recesses, no focal consolidation) FMR H&P: A/P - Problem List (1) Chest pain Current Visit: Yes Status: Acute Code(s): R07.9 - CHEST PAIN, UNSPECIFIED (2) CKD (chronic kidney disease) stage 3, GFR 30-59 ml/min Current Visit: No Status: Chronic (3) Chronic atrial fibrillation Current Visit: No Status: Chronic Code(s): I48.2 - CHRONIC ATRIAL FIBRILLATION (4) Chronic systolic (congestive) heart failure Current Visit: No Status: Chronic Code(s): I50.22 - CHRONIC SYSTOLIC ( CONGESTIVE) HEART FAILURE Comment: ACC/AHA stage C (5) Elevated troponin Current Visit: Yes Status: Chronic Code(s): R74.8 - ABNORMAL LEVELS OF OTHER SERUM ENZYMES (6) Hypertension Current Visit: No Status: Chronic Priority: Medium Code(s): I10 - ESSENTIAL (PRIMARY) HYPERTENSION Qualifiers: Hypertension type: essential hypertension Qualified Code(s): I10 - Essential (primary) hypertension - Plan 58yo AAM with h/o HTN, CHF, Afib, CHF with Pacemaker/defibrillator, presents for epigastric pain likely GERD. #Epigastric pain, likely GERD - Trop 0.210, near baseline per records reviewed. Will trend and monitor on tele - EKG v-paced, similar to previous - Known to Dr. Cuevas at previous admission, cards consult, apprec recs, possible stress - sxs responded well to GI cocktail - continue home protonix, added pepcid and zofran prn. # Afib - known h/o, pacemaker and on eliquis and amio per previous records\\ -Cards consulted- follow recs - will continue home eliquis, hold amio at this time - monitor on tele #HFrEF - EF 15-20% on ECHO on 08/21/18, defib in place - continue home Entresto, Toresemide, Coreg, and ASA - will check BNP, no s/s of volume overload, lungs clear and no LE edema, will monitor - strict I/Os # CKD III - Cr 1.42, baseline ~1.2-1.3 - dry on exam, but with low EF will hold IVF at this time, encourage PO intake and monitor VTE: home Eliquis Diet: NPO for possible stress, HH after Code: Full Disposition/LOS: Admit to tele obs for CP r/o, likely GI in nature. Continue GI meds, trend trops. Cards consult, apprec recs. Anticipate hospitalization <48 hours. FMR H&P: Upper Level - Pertinent history I was present with the consultant internship during the HPI. I scribed the above HPI. I made edits above as needed. - Pertinent findings Pt tender to palpation in Epigastric area. - Plan Date/Time: 12/01/18 0623 I, Gonzalez Wilkerson, PGY-3, have evaluated this patient and agree with findings/ plan as outlined by consultant internship resident. Pertinent changes/additions are listed here. I agree with the above plan and made edits as needed. At this time we will do a chest pain rule out workup. Due to patient extensive cardiac hx will trend troponins and consult cardiology for further testing recs. Pain seems to be GERD related. Px zofran shc, pepcid and protonix. Addendum - Attending - Attending Attestation Date/Time: 12/01/18 1126 I personally evaluated the patient and discussed the management with Dr. Sinha I agree with the History, Examination, Assessment and Plan documented above with any addition or exceptions noted below. 58 yo male with epigatric pain will r/o ACS patient tender to epigastric region with history of tobacco use suspect gastritis/GERD as likely cause note lipase nl and prior GB Ultrasound wnl in June. Expectant management if r/o ACS rec continued outpatient evaluation GI etiology consider EGD H.Pylori patient empirically on PPI.
[2018-12-01] MEDS ORDERED: Ondansetron ODT 4 MG TAB PO PRN (07:20)
[2018-12-01] MEDS ORDERED: Calcium Carbonate 500 MG ChewTAB PO PRN (07:20)
[2018-12-01] MEDS ORDERED: Acetaminophen 325 MG TAB PO PRN (07:20)
[2018-12-01 09:07] LABS: Troponin I 0.208 ng/mL (< 0.028)
--- NOTE | 2018-12-01 09:24 | RAD ---
CHEST 1 VIEW: COMPARISON: 11/19/2018. HISTORY: Epigastric pain. FINDINGS: Stable right-sided transvenous defibrillator with lead position in the right ventricle and coronary s inus. There is persistent cardiomegaly and atherosclerosis of the aortic knob. No pleural effusion. No masses or consolidation. No pneumothorax or osseous abnormalities. IMPRESSION: 1. Cardiomegaly without evidence of congestive heart failure. 2. Atherosclerosis. POS: OFF
[2018-12-01] MEDS: Ondansetron PF 4 MG/2 ML Vial IVP SCH ×3 (09:42→20:55)
[2018-12-01] MEDS: Apixaban 5 MG TAB PO SCH ×2 (14:22→20:55)
[2018-12-01] MEDS: Pantoprazole 40 MG GRANULES PACKET PO SCH (14:22)
[2018-12-01] MEDS: Torsemide 20 MG TAB PO SCH (14:22)
[2018-12-01] MEDS: Famotidine 20 MG TAB PO SCH ×2 (14:22→20:55)
[2018-12-01] MEDS: Aspirin 81 mg Enteric Coated Tablet PO SCH (14:22)
[2018-12-01] MEDS: Potassium Chloride 10 MEQ TAB PO SCH (14:23)
[2018-12-01] MEDS: Magnesium Oxide 400 MG TAB PO SCH (14:23)
--- NOTE | 2018-12-01 14:36 | NM ---
NUCLEAR MEDICINE CARDIAC STRESS WITH EF AND WALL MOTION: HISTORY: Chest pain. Congestive heart failure. Atrial fibrillation. Status post ablation. FINDINGS: Large fixed defects involving the anterior apical wall, inferior wall as well as the inferior lateral wall. No evidence of reversibility. TID is 0.94. End-diastolic volume 278 mL. End systolic volume 210 mL. Cardiac gating: Global hypokinesis. 24% ejection fraction. IMPRESSION: 1. Multiple areas of fixed defect suggesting scar in the anterior apical left ventricle, inferior lef t ventricle as well as the inferior lateral left ventricle. 2. Global hypokinesis. 24% ejection fraction. Transcribed Date/Time: 12/01/2018 2:47 PM
[2018-12-01 15:48] LABS: Troponin I 0.219 ng/mL (< 0.028)
[2018-12-01] MEDS ORDERED: ADENOSINE 60 MG/20 ML VIAL ONE (16:56)
--- NOTE | 2018-12-01 17:14 | CON ---
DATE OF CONSULTATION: 12/01/2018 REASON FOR CONSULTATION: Abnormal stress study. HISTORY OF PRESENT ILLNESS: Mr. Aldrich is a 58-year-old gentleman who is a patient Dr. Dexter Cuevas. He has a history of nonischemic cardiomyopathy diagnosed several years ago. He recently presented with epigastric pain. He states the pain is much worse with eating. It has occurred in the last 2 to 3 weeks. Subsequently, he received a noninvasive stress study to assess for ischemia. His stress study did suggest a fixed defect along the anterior apical and inferior wall and inferolateral wall with LVEF of 24%. The patient denies chest pain, pressure, or shortness of breath. No PND, orthopnea, or lower extremity edema present. PAST MEDICAL HISTORY: Nonischemic cardiomyopathy, chronic atrial fibrillation, hypertension, chronic kidney disease, back pain, acid reflux, previous amphetamine use, and AICD placement. ALLERGIES: IODINE. MEDICATIONS: Include: 1. Eliquis. 2. Carvedilol. 3. Aspirin. 4. Potassium. 5. Pantoprazole. 6. Vicodin. 7. Entresto. 8. Ambien. SOCIAL HISTORY: No current tobacco or alcohol use. REVIEW OF SYSTEMS: Ten-point review of systems is reviewed and as above, otherwise negative. PHYSICAL EXAMINATION: GENERAL: Patient is a pleasant 58-year-old who is in no acute distress. The patient appears their stated age. VITAL SIGNS: Blood pressure 122/65, pulse 81, and temperature 97.7. NEUROLOGIC: The patient is alert and oriented x3 with no focal neurologic deficits. HEENT: Sclerae without icterus. Mouth has moist mucous membranes with normal pallor. NECK: No JVD. Carotid upstroke brisk. No bruits bilaterally. LUNGS: Clear to auscultation with unlabored respirations. BACK: No scoliosis or kyphosis. CARDIAC: Regular rate and rhythm with normal S1 and S2. No S3 or S4 noted. No significant rubs, murmurs, thrills, or gallops noted throughout the precordium. PMI is not displaced. There is no parasternal heave. ABDOMEN: Soft, nontender, nondistended. No peritoneal signs present. No hepatosplenomegaly. No abnormal striae. EXTREMITIES: 2+ femoral and 2+ dorsalis pedis pulses. No cyanosis, clubbing, or edema. SKIN: No gross abnormalities. PERTINENT LABORATORY DATA: Hemoglobin 14.4. Peak troponin 0.2, creatinine 1.24, GFR 64, sodium 132, potassium 3.4. IMPRESSION: 1. Epigastric pain. 2. Nonischemic cardiomyopathy. 3. Atrial fibrillation. RECOMMENDATIONS: At this point, the patient's symptoms appear to be GI in nature and not cardiac. We would recommend a gallbladder ultrasound to assess for gallbladder disease. His pain seems to be much worse with eating. He states he fears eating because of pain. May also consider stopping Eliquis. In case, he does need a repeat angio with the repeat angio can also be performed as an outpatient. Otherwise, further recommendation per Dr. Dexter Cuevas in a.m. Job ID: [id number]
[2018-12-02] MEDS: Ondansetron PF 4 MG/2 ML Vial IVP SCH ×3 (01:30→15:16)
[2018-12-02 04:52] LABS: #Basophils 0.1 thou/uL (0.0-0.2); #Eosinphils 0.1 thou/uL (0.0-0.7); #Lymphocytes 2.3 thou/uL (1.20-3.40); #Monocytes 0.8 thou/uL (0.11-0.59); #Neutrophils 3.4 thou/uL (1.40-6.50); %Basophils 1.5 % (0.0-1.0); %Eosinophils 1.5 % (0.0-10.0); %Lymphocytes 34.7 % (21.0-51.0); %Monocytes 11.6 % (0.0-10.0); %Neutrophils 50.6 % (42.0-75.0); Mean Corpuscular Hemoglobin 34.2 pg (27.0-31.0); Mean Platelet Volume 7.7 fL (7.4-10.4); Platelet Count 163 thou/uL (130-400); Red Blood Cell (RBC) Count 4.09 mill/uL (4.70-6.10); White Blood Cell (WBC) Count 6.8 thou/uL (4.8-10.8)
[2018-12-02 05:13] LABS: ALT (SGPT) 35 U/L (8-55); AST (SGOT) 38 U/L (5-34); Albumin 3.5 g/dL (3.5-5.0); Alkaline Phosphatase 84 U/L (40-150); Anion Gap 14 mmol/L (10-20); BUN (Urea Nitrogen) 25 mg/dL (8.4-25.7); Bilirubin, Total 1.4 mg/dL (0.2-1.2); Calc. Creatinine Clearance 62 mL/min (70-130); Calcium 10.3 mg/dL (7.8-10.44); Carbon Dioxide 29 mmol/L (22-29); Chloride 97 mmol/L (98-107); Estimated GFR-MDRD 54; Globulin 3.9 g/dL (2.4-3.5); Glucose 97 mg/dL (70-105); Potassium 3.4 mmol/L (3.5-5.1); Protein, Total 7.4 g/dL (6.0-8.3); Sodium 137 mmol/L (136-145)
--- NOTE | 2018-12-02 05:53 | PDOC.FM ---
- Subjective Subjective: Pt is having epigastric pain this morning. It is worse at night and after he eats. He says he is able to eat though. Last BM was yesterday. - Objective MAR Reviewed: Yes Vital Signs & Weight: Vital Signs (12 hours) Temp Pulse Resp BP Pulse Ox 12/02/18 04:00 97.5 F L 83 16 120/76 92 L 12/01/18 19:25 98.0 F 88 18 122/78 94 L Weight Weight 88.451 kg I&O: 11/30/18 12/01/18 12/02/18 06:59 06:59 06:59 Intake Total 480 Balance 480 Result Diagrams: 12/02/18 04:27 12/02/18 04:27 Phys Exam - Physical Examination Constitutional: NAD HEENT: PERRLA, moist MMs, oral pharynx no lesions Neck: supple, full ROM Respiratory: clear to auscultation bilateral Cardiovascular: RRR Pt is has systolic blowing murmur loudest in the mitral region Gastrointestinal: soft, positive bowel sounds Tender to palpation in central epigastric region Musculoskeletal: no edema, pulses present Neurological: moves all 4 limbs Psychiatric: normal affect, A&O x 3 Skin: normal turgor Dx/Plan (1) Chest pain Code(s): R07.9 - CHEST PAIN, UNSPECIFIED Status: Acute (2) Elevated troponin Code(s): R74.8 - ABNORMAL LEVELS OF OTHER SERUM ENZYMES Status: Chronic (3) JOSE A (acute kidney injury) Code(s): N17.9 - ACUTE KIDNEY FAILURE, UNSPECIFIED Status: Acute - Plan Plan: 58yo AAM with h/o HTN, CHF, Afib, CHF with Pacemaker/defibrillator, presents for epigastric pain likely GERD. 1. Epigastric pain, likely GERD * Trop 0.210, near baseline per records reviewed. Will trend and monitor on tele * EKG v-paced, similar to previous * Stress: Left apical, lateral, and inferior ventricle. Global hypokinesis. EF: 24% * sxs responded well to GI cocktail - continue home protonix, added pepcid and zofran prn. * RUQ US: pending * Needs outpt GI f/u 2. Afib * known h/o, pacemaker and on eliquis and amio per previous records * Cards consulted, appreciate recs. Will await for recs today. * will continue home eliquis, hold amio at this time 3. HFrEF * EF 15-20% on ECHO on 08/21/18, defib in place * continue home Entresto, Toresemide, Coreg, and ASA * will check BNP, no s/s of volume overload, lungs clear and no LE edema, will monitor 4. CKD III * Cr 1.61, baseline ~1.2-1.3 * dry on exam, but with low EF will hold IVF at this time, encourage PO intake and monitor VTE: home Eliquis Diet: NPO for possible stress, HH after Code: Full Disposition: F/u on cardio recs and RUQ US. Possibly d/c this afternoon depending on recs. Addendum - Attending - Attending Attestation Date/Time: 12/02/18 4679 I personally evaluated the patient and discussed the management with Dr. Sinha and team. I agree with the History, Examination, Assessment and Plan documented above with any addition or exceptions noted below. Asymptomatic this AM. Await abd sono and cards with dispo pending.
[2018-12-02 08:41] VITALS: BMI 27.0
[2018-12-02] MEDS: Torsemide 20 MG TAB PO SCH (08:42)
[2018-12-02] MEDS: Potassium Chloride 10 MEQ TAB PO SCH (08:43)
[2018-12-02] MEDS: Famotidine 20 MG TAB PO SCH (08:43)
[2018-12-02] MEDS: Magnesium Oxide 400 MG TAB PO SCH (08:43)
[2018-12-02] MEDS: Apixaban 5 MG TAB PO SCH (08:43)
[2018-12-02] MEDS: Pantoprazole 40 MG GRANULES PACKET PO SCH (08:43)
[2018-12-02] MEDS ORDERED: Lidocaine 2% Viscous Solution 10 ML, Aluminum & Magnesium Hydroxide 30 ML SSW SCH (08:45)
[2018-12-02] MEDS: Aspirin 81 mg Enteric Coated Tablet PO SCH (10:22)
--- NOTE | 2018-12-02 14:31 | ULT ---
Sonogram abdomen complete HISTORY: Abdomen pain. FINDINGS: Gallbladder has a normal appearance. Common duct is 0.3 cm. Liver unremarkable without foca l mass or intrahepatic biliary dilatation. No free fluid. Spleen, kidneys, and visualized portions of abdominal aorta, IVC, and pancreas are within normal limits. IMPRESSION: Normal abdominal sonogram.
[2018-12-02 15:15] VITALS: BP 118/81; TEMP 97.9
[2018-12-03] MEDS ORDERED: Potassium Chloride 10 MEQ TAB PO SCH (08:00)
[2018-12-03] MEDS ORDERED: Magnesium Oxide 400 MG TAB PO SCH (09:00)
--- NOTE | 2018-12-03 11:34 | DIS ---
DATE OF ADMISSION: 12/01/2018 DATE OF DISCHARGE: 12/02/2018 RESIDENT: Bart Sinha MD ADMITTING ATTENDING: Rina Levine MD DISCHARGE ATTENDING: Sundeep Llamas MD CONSULTS: Cardiology, Dr. Ornelas, 12/01. PROCEDURES: * Stress test, 12/01, showed multiple areas of fixed defects suggesting scar in anterior apical left ventricle, inferior left ventricle as well as the inferolateral left ventricle, global hypokinesis with a 24% ejection fraction. * Chest x-ray, 12/01, showed cardiomegaly without evidence of congestive heart failure, atherosclerosis. * Abdominal ultrasound on 12/02 showed normal abdominal sonogram. PRIMARY DIAGNOSIS: Chest pain. SECONDARY DIAGNOSES: 1. Chronic kidney disease, stage 3, GFR of 30-59. 2. Chronic atrial fibrillation. 3. Chronic congestive heart failure. 4. Elevated troponins. 5. Hypertension. DISCHARGE MEDICATIONS: None. Continue home medications. DISCONTINUED MEDICATIONS: None. HOSPITAL COURSE: A 58-year-old male with history of hypertension, atrial fibrillation, CHF with pacemaker defibrillator, presents for epigastric pain since 1400 hours the day prior to admission on 11/30. Pain described as a burning , cramping pain that is intermittent and lasts 5 to 10 minutes, recurring every 15 minutes. Rates pain as 10/10. The patient says the pain does not radiate. No associated shortness of breath, nausea, vomiting, fever, chills. Pain occurred while lying down to rest, no meals prior to onset. He has had previous pain last week and he was told it was GI in nature. Denies any recent tremors, trauma. Does endorse nonbloody diarrhea for the past day occurring 3-4 times a day. No sick contacts. Decreased p.o. intake for the past 2 days. States the patient was resolved with a GI cocktail in the ED. In the ED, he was given morphine, Protonix, Zofran, and GI cocktail with relief of symptoms. Epigastric pain, likely GERD. 1. Chest Pain: ACS vs. GI * Troponin was 0.210, near baseline per records review. Troponins trended from 0.21 to0.208 back up to 0.219. * Cardiology was consulted and said that the pain was most likely not cardiac in nature. They would consider a repeat angio outpatient and stopping Eliquis if pain does not resolve in the near future. Stress test was performed that showed no new defects. * Symptoms responded well to a GI cocktail. Continue home Protonix. Right upper quadrant ultrasound as listed above is normal. * Discussed outpatient GI followup. Recommended contacting PCP and getting a referral for a GI doctor. 2. Atrial fibrillation. * Known history of pacemaker and on Eliquis and amiodarone as per previous records. * Card was consulted, appreciate recommendations. * We will continue home Eliquis and amiodarone upon discharge. 3. Heart failure with reduced ejection fraction. * EF is 24% on stress, defibrillator in place. * Continue home Entresto, torsemide, Coreg and aspirin. 4. CKD, stage 3. * Creatinine 1.61, this is near his current baseline. * Recommend followup with Dr. Marion. DISPOSITION: Stable. DISCHARGE INSTRUCTIONS: 1. Location: Home. 2. Diet: Heart healthy, low-sodium. 3. Activity: As tolerated. 4. Followup: a. Dr. Marion within 7 days. freddy Cuevas within 14 days. c. Recommend GI followup. Job ID: [id number] [facility]
--- NOTE | 2018-12-07 12:11 | EKG ---
Test Reason : Blood Pressure : / mmHG Vent. Rate : 077 BPM Atrial Rate : 077 BPM P-R Int : 094 ms QRS Dur : 180 ms QT Int : 512 ms P-R-T Axes : 016 259 081 degrees QTc Int : 579 ms Electronic ventricular pacemaker Confirmed by SEFERINO HOWARD D.O. ([id number]), editor index MELVINA CLARK ([id number]) on 12/07/2018 12:11:14 PM Referred By: Confirmed By:SEFERINO HOWARD D.O.
== END 2018-12-02 18:00 | disposition home or self-care (01) ==
LOC: ERS 04:10 → ERHOLD 06:15 → 2NO 07:15
PROVIDERS: ADMIT Family Medicine; ATTEND Family Medicine
DX: R07.9 Chest pain, unspecified (principal); R10.13 Epigastric pain; I13.0 Hypertensive heart and chronic kidney disease with heart failure and stage 1 through stage 4 chronic kidney disease, or unspecified chronic kidney disease; I50.22 Chronic systolic (congestive) heart failure; N18.3 Chronic kidney disease, stage 3 (moderate); I48.2 Chronic atrial fibrillation; D50.9 Iron deficiency anemia, unspecified; G47.30 Sleep apnea, unspecified; Z79.01 Long term (current) use of anticoagulants; Z79.82 Long term (current) use of aspirin; Z79.899 Other long term (current) drug therapy; Z88.8 Allergy status to other drugs, medicaments and biological substances; Z91.041 Radiographic dye allergy status; Z95.810 Presence of automatic (implantable) cardiac defibrillator
CPT/HCPCS: 71045; 76700; 78452; 80053 ×2; 82553; 83690; 83735; 83880; 84484 ×2; 85025 ×2; 93005; 93017; 96374; 96375; 96376 ×2; 97139 ×4; 99285; A9500; G0378 ×3; 36415; 81003; 81015; C9113; J0153; J2270; J2405

== ENCOUNTER 2018-12-17 10:37 | Emergency (ER) | payer MEDICARE, MEDICAID ==
[2018-12-17] MEDS ORDERED: Ketorolac Tromethamine 30 MG/ML VIAL ONE (13:20)
== END 2018-12-17 13:44 | disposition home or self-care (01) ==
LOC: ERS 10:37
DX: M10.9 Gout, unspecified (principal); I11.0 Hypertensive heart disease with heart failure; I50.9 Heart failure, unspecified; F17.210 Nicotine dependence, cigarettes, uncomplicated; G47.30 Sleep apnea, unspecified
CPT/HCPCS: 96372; 99283; J1885

== ENCOUNTER 2018-12-28 05:06 | Observation (INO) | payer MEDICARE, MEDICAID ==
[2018-12-28 05:29] LABS: #Basophils 0.1 thou/uL (0.0-0.2); #Eosinphils 0.2 thou/uL (0.0-0.7); #Lymphocytes 4.2 thou/uL (1.20-3.40); #Monocytes 0.6 thou/uL (0.11-0.59); #Neutrophils 6.3 thou/uL (1.40-6.50); %Basophils 1.2 % (0.0-1.0); %Eosinophils 1.8 % (0.0-10.0); %Lymphocytes 36.8 % (21.0-51.0); %Neutrophils 55.2 % (42.0-75.0); Hemoglobin 16.1 g/dL (14.0-18.0); Mean Corpuscular HGB CONC 34.3 g/dL (32.0-36.0); Mean Corpuscular Hemoglobin 34.2 pg (27.0-31.0); Mean Corpuscular Volume 99.6 fL (78.0-98.0); Mean Platelet Volume 7.8 fL (7.4-10.4); Platelet Count 199 thou/uL (130-400); RBC Distribution Width 13.6 % (11.5-14.5); White Blood Cell (WBC) Count 11.3 thou/uL (4.8-10.8)
[2018-12-28 05:40] LABS: INR-International Normal Ratio 1.2; PTT 35.5 SEC (22.9-36.1); Prothrombin Time 15.3 SEC (12.0-14.7)
[2018-12-28 06:29] LABS: ALT (SGPT) 15 U/L (8-55); AST (SGOT) 32 U/L (5-34); Albumin 3.9 g/dL (3.5-5.0); Alkaline Phosphatase 95 U/L (40-110); Anion Gap 22 mmol/L (10-20); BUN (Urea Nitrogen) 22 mg/dL (8.4-25.7); Bilirubin, Total 2.2 mg/dL (0.2-1.2); CK (CPK) 166 U/L (30-200); Calc. Creatinine Clearance 0 mL/min (70-130); Calcium 10.4 mg/dL (7.8-10.44); Carbon Dioxide 25 mmol/L (22-29); Chloride 91 mmol/L (98-107); Estimated GFR-MDRD 55; Glucose 82 mg/dL (70-105); Potassium 3.1 mmol/L (3.5-5.1); Protein, Total 8.9 g/dL (6.0-8.3); Sodium 135 mmol/L (136-145)
[2018-12-28 06:45] LABS: CKMB 3.1 ng/mL (0-6.6)
--- NOTE | 2018-12-28 07:22 | PDOC.FPRHP ---
Addendum entered and electronically signed by Gonzalez Wilkerson MD 12/28/18 08:49 : I was present with the internal security manager Dr. Collins, PGY-1 during the evaluation. I agree with the below history. I agree with the below plan. At this time we may consider cardiology consult to evaluate his AICD. Recent Stroke/TIA hospitilization a few months ago they thought it was cardiac in nature. Original Note: - History of Present Illness Chief Complaint: Facial Drooping, Dysarthria History of Present Illness: Mr. Aldrich is a 58 y/o male w/ a PMH significant for TIA/ stroke, HTN, CHF, unspecified cardiac dysrhythmia, gout and shingles who presents to the ED after an episode of facial drooping at dysarthria that occurred at 0300 on 12/28/18. His nephew was present during the evaluation and assisted with some of the history. Mr. Aldrich states that he was sitting at the kitchen table with his nephew while drinking and playing the lottery. His nephew noticed that the left side of his face was drooping and that he was slurring his words. His nephew then tried to convince his uncle to go outside to "get some air", but he was weak on his feet and his nephew had to catch him to keep him from falling. They subsequently called EMS and were transported to the ED. Mr. Aldrich denies any headaches, changes in vision, changes in hearing , chest pain, palpitations, shortness of breath, ABD pain, N/V/D or known trauma to his head. ED Course: CT Head revealed no acute processes and an EKG was read as NSR. Per the patient' s nephew, Mr. Aldrich's left-sided facial drooping and dysarthria appear to have resolved. - Allergies/Adverse Reactions Allergies Allergy/AdvReac Type Severity Reaction Status Date / Time iodine Allergy Mild Hives Verified 12/28/18 09:31 spironolactone Allergy Verified 12/28/18 09:31 - Home Medications Medication Instructions Recorded Confirmed Type Aspirin [Ecotrin Low Strength] 81 mg PO DAILY #0 tab 04/21/13 12/28/18 Rx Zolpidem Tartrate [Ambien] 10 mg PO HS PRN 08/20/18 12/28/18 History Apixaban [Eliquis] 5 mg PO BID #60 tab 11/05/18 12/28/18 Rx Carvedilol [Coreg] 3.125 mg PO BID #60 tab 11/05/18 12/28/18 Rx Sacubitril/Valsartan [Entresto 24 1 tab PO BID #60 tab 11/05/18 12/28/18 Rx mg-26 mg Tablet] Torsemide [Demadex] 20 mg PO DAILY #30 tab 11/05/18 12/28/18 Rx Amiodarone [Cordarone] 200 mg PO DAILY 12/01/18 12/28/18 History Atorvastatin Calcium 80 mg PO DAILY 30 Days #30 tablet 12/28/18 Rx Atorvastatin Calcium [Lipitor] 80 mg PO HS 90 Days #90 tab 12/28/18 Rx Cyclobenzaprine [Flexeril] 10 mg PO PRN PRN 12/28/18 12/28/18 History Dexlansoprazole [Dexilant] 60 mg PO DAILY 12/28/18 12/28/18 History Fluticasone/Vilanterol [Breo 1 puff INH PRN PRN 12/28/18 12/28/18 History Ellipta] Furosemide [Lasix] 80 mg PO BID 12/28/18 12/28/18 History HYDROcodone/Acetaminophen 1 - 2 tab PO PRN PRN 12/28/18 12/28/18 History [Hydrocodone-Acetamin 10-325 mg] Iron,Carbonyl [Feosol] 325 mg PO DAILY 12/28/18 12/28/18 History Magnesium 200 mg PO DAILY 12/28/18 12/28/18 History Metolazone [Zaroxolyn] 5 mg PO PRN PRN 12/28/18 12/28/18 History Naproxen 500 mg PO PRN PRN 12/28/18 12/28/18 History Probenecid/Colchicine 1 tab PO BID 12/28/18 12/28/18 History [Probenecid-Colchicine Tablet] Comments: amiodarone 20mg 2tabs 2x a day carvedilol 3.125 mg 1 pill 2x a day torsemide 20 mg 1x a day Probenecid-Colchicine 500.5 1 tablet 1x a day Entresto 97-103 mg tab 1 tab 2x a day Naproxen 500 mg q12 hrs Dexilant 60 mg 1 cap by mouth daily Mag oxide 400mg 1/2 tab daily Atorvastatin 40 mg - History PMH: Hx of Stroke (4M prior), Cardiac Arrythmia, HTN, CHF, Gout, Shingles Surg: Defibrillator (w/ Revision) Meds: See Comments Section Allergies: Iodine (Rash), Spironolactone Social: EtOH - Review of Systems General: denies: fever/chills, fatigue Eyes: denies: eye pain, vision changes ENT: denies: nasal congestion Respiratory: denies: cough, congestion, shortness of breath Cardiovascular: reports: edema (Sub-Acute). denies: chest pain, palpitation Gastrointestinal: denies: nausea, vomiting, diarrhea, abdominal pain, GI bleeding Genitourinary: denies: dysuria Skin: denies: rashes Musculoskeletal: denies: pain, stiffness Neurological: reports: weakness. denies: syncope - Vital signs BP: [125/93] HR: [81] RR: [18] Tmax: [98.2] Pox: [93]% on [RA] Wt: [] - Physical Exam Constitutional: NAD, awake, alert and oriented, well developed HEENT: normocephalic and atraumatic, PERRLA, EOMI, conjunctiva clear, grossly normal vision, grossly normal hearing, normal nasal mucosa, MMM, oropharynx clear, other (Scleral icterus, likely chronic, and poor dentition.) Neck: supple, FROM, trachea midline, no LAD, no JVD, no bruits Chest: no-tender to palpation, no lesions Heart: RRR, normal S1/S2, no murmurs/rubs/gallops, pulses present, no edema Lungs: CTAB, no respiratory distress, good air movement, no rales/rhonchi, no wheezing, no retractions Abdomen: soft, non-tender, bowel sounds present, no masses/distention Musculoskeletal: normal structure, normal tone, ROM grossly normal Neurological: no focal deficit, CN II-XII intact -Neurological: tongue deviation to the left. Skin: no rash/lesions Heme/Lymphatic: no unusual bruising or bleeding, no purpura, no petechia, no LAD Psychiatric: normal mood and affect, intact recent and remote memory FMR H&P: Results - Labs Result Diagrams: 12/28/18 05:19 12/28/18 05:47 Lab results: WBC 11.3 thou/uL (4.8-10.8) H 12/28/18 05:19 Hgb 16.1 g/dL (14.0-18.0) 12/28/18 05:19 Hct 46.8 % (42.0-52.0) 12/28/18 05:19 MCV 99.6 fL (78.0-98.0) H 12/28/18 05:19 Plt Count 199 thou/uL (130-400) 12/28/18 05:19 Neutrophils % 55.2 % (42.0-75.0) 12/28/18 05:19 Sodium 135 mmol/L (136-145) L 12/28/18 05:47 Potassium 3.1 mmol/L (3.5-5.1) L 12/28/18 05:47 Chloride 91 mmol/L (98-107) L 12/28/18 05:47 Carbon Dioxide 25 mmol/L (22-29) 12/28/18 05:47 BUN 22 mg/dL (8.4-25.7) 12/28/18 05:47 Creatinine 1.56 mg/dL (0.7-1.3) H 12/28/18 05:47 Glucose 82 mg/dL (70-105) 12/28/18 05:47 Calcium 10.4 mg/dL (7.8-10.44) 12/28/18 05:47 Total Bilirubin 2.2 mg/dL (0.2-1.2) H 12/28/18 05:47 AST 32 U/L (5-34) 12/28/18 05:47 ALT 15 U/L (8-55) 12/28/18 05:47 Alkaline Phosphatase 95 U/L (40-110) 12/28/18 05:47 Creatine Kinase 166 U/L (30-200) 12/28/18 05:47 CK-MB (CK-2) 3.1 ng/mL (0-6.6) 12/28/18 05:47 Serum Total Protein 8.9 g/dL (6.0-8.3) H 12/28/18 05:47 Albumin 3.9 g/dL (3.5-5.0) 12/28/18 05:47 - EKG Interpretation EKG: EKG read as NSR by ED physician. FMR H&P: A/P - Problem List (1) TIA (transient ischemic attack) Current Visit: Yes Status: Acute Code(s): G45.9 - TRANSIENT CEREBRAL ISCHEMIC ATTACK, UNSPECIFIED (2) Chronic atrial fibrillation Current Visit: No Status: Chronic Code(s): I48.2 - CHRONIC ATRIAL FIBRILLATION * DO NOT USE * (3) Chronic systolic (congestive) heart failure Current Visit: No Status: Chronic Code(s): I50.22 - CHRONIC SYSTOLIC ( CONGESTIVE) HEART FAILURE Comment: ACC/AHA stage C (4) Elevated troponin Current Visit: No Status: Chronic Code(s): R74.8 - ABNORMAL LEVELS OF OTHER SERUM ENZYMES (5) Hypertension Current Visit: No Status: Chronic Priority: Medium Code(s): I10 - ESSENTIAL (PRIMARY) HYPERTENSION Qualifiers: Hypertension type: essential hypertension Qualified Code(s): I10 - Essential (primary) hypertension - Plan 1. TIA vs. Stroke r/o -Patient's HPI and multiple comorbidities make TIA/stroke extremely likely -Patient currently on anticoagulation -Physical exam unremarkable, symptoms have resolved since 299 -NIH Score: 0 -CT Head: Negative -EKG: NSR -CTA Head & Neck: Pending -Echo performed recently, report on file 2. A-Fib -Patient denied history of dysrhythmia, but has A-Fib per chart review -Patient currently taking anticoagulation -Troponins elevated but similar to baseline, will continue to monitor 3. HTN -BP: 125/93 on 12/28 -Allow for permissive HTN in setting of possible stroke -Hydralazine 10 mg PO Q4H PRN if BP > 180/110 4. Polysubstance Abuse -Patient admits to recent EtOH and illicit drug abuse -Patient may still be acutely intoxicated -UDS: Pending Code: Full Diet: Heart Healthy Activity: Ad Sridevi DVT PPx: SCDs and Home Medication Dispo: Admit to Telemetry Floor for observation. Continue home anticoagulation regimen and await CTA Head & Neck results. Expected LOS < 48H FMR H&P: Upper Level - Pertinent history Food that he e - Plan Date/Time: 12/28/18 0718 I, [], have evaluated this patient and agree with findings/plan as outlined by internal security manager resident. Pertinent changes/additions are listed here. Addendum - Attending - Attending Attestation Date/Time: 12/28/18 1228 I personally evaluated the patient and discussed the management with Dr. Collins I agree with the History, Examination, Assessment and Plan documented above with any addition or exceptions noted below - 58 y/o male with PMH of TIA/stroke, HTN, CHF, unspecified cardiac dysrhythmia, gout and shingles who presents to the ED after an episode of facial drooping at dysarthria and facial droop that occurred at 0300 on 12/28/18. Was weith family when they noted the change. Had a difficult time standing up and appeared weak. EMS called and symptoms had resolved on arrival to ER. PMH/PSH/Meds/ SH reviewed and agree with resident's documentation. Afebrile VSS. Exam reviewed and agree with resident's findings. Labs: BUN/Cr=22/1.56, CT brain - negative A/P: 1) Possible TIA- symptoms now resolved; carotid doppler ordered. Already on ASA and plavix. Appreciate neurology input. Continue statin. 2) HFrEF- stable; continue current meds.
--- NOTE | 2018-12-28 07:54 | CT ---
PRELIMINARY REPORT/[facility]/AFTER HOURS PROCEDURE Addendum created by Sandra Pal MD on 12/28/2018 5:29 AM Central Time ([place] & [place]) Addendum: Brain: Exam is moderately degraded by motion artifact. Right parietal encephalomalacia. No evidence of acute intracranial hemorrhage, mas or acute territorial infarct identified. Findings were discussed with SharerNatividad at 12/28/2018 5:28 AM CDT. Initial Report created on 12/28/2018 5:24 AM Central Time ([place] & [place]) PROCEDURE INFORMATION: Exam: CT Head Without Contrast Exam date and time: 12/28/2018 5:10 AM Clinical history: 58 years old, male; Weakness, extremity and weakness, facial; Patient HX: *level 1 stroke* m58, last seen normal around 0430, left sided weakness, left sided facial droop. TECHNIQUE: Imaging protocol: Computed tomography of the head without contrast. Other technique: STROKE PROTOCOL was implemented. COMPARISON: No relevant prior studies available. FINDINGS: Brain: Exam is moderately degraded by motion artifact. Right parietal craniotomy. Tyler and white ni er differentiation is normal in the remaining parenchyma. No hemorrhage. Patchy whitte matter hypodensities are nonspecific but may be seen in small vessel chronic ischemic changes. No mass effect or midline shift. Ventricles: No ventriculomegaly. Bones/joints: No acute fracture. Sinuses: Visualized sinuses are unremarkable. No fluid levels. Mastoid air cells: Visualized mastoid air cells are well aerated. Soft tissues: Mild left parietal scalp swelling. IMPRESSION: No acute intracranial abnormality. ASSESSMENT: ASPECTS ([place] Stroke Program Early CT Score) is 10. Thank you for allowing us to participate in the care of your patient. Dictated and Authenticated by: Sandra Leggett MD 12/28/2018 5:24 AM Central Time ([place] & [place]) FINAL REPORT CT HEAD WITHOUT CONTRAST PERFORMED ON AN EMERGENCY BASIS: 12/28/2018 0511 HOURS HISTORY: Weakness. Left facial droop. COMPARISON: 08/19/2018 FINDINGS: I agree with the preliminary report by Dr. Pal from [facility]. Old right frontoparietal infarct is stable. No acute intracranial abnormalities are demonstrated. CODE QA Transcribed Date/Time: 12/28/2018 10:23 AM
[2018-12-28] MEDS ORDERED: hydrALAZINE 20 MG/ML VIAL SLOW IVP PRN (08:44)
[2018-12-28] MEDS ORDERED: Potassium Chloride 20 MEQ TAB PO SCH (08:44)
[2018-12-28] MEDS ORDERED: Pantoprazole 40 MG VIAL IVP SCH (09:00)
[2018-12-28] MEDS ORDERED: Aspirin 81 mg Enteric Coated Tablet PO SCH (09:00)
[2018-12-28 09:25] LABS: Troponin I 0.274 ng/mL (< 0.028)
--- NOTE | 2018-12-28 10:16 | CON ---
DATE OF CONSULTATION: 12/28/2018 CONSULTING PHYSICIAN: [facility]. IMPRESSION: 1. Transient slurred speech, likely secondary to small vessel transient ischemic attack. 2. History of congestive heart failure with ejection fraction of 15% to 20%, on anticoagulation. PLAN: Carotid ultrasound. HISTORY OF PRESENT ILLNESS: Mr. Aldrich is a 58-year-old man, who came in with complaints of slurred speech. There was no lateralized weakness or numbness. He has a past history of a right hemispheric stroke due to cardioembolic event. He has been on Eliquis. He denies any new lateralized weakness or numbness. He has not had any headache, nausea, vomiting, vertigo, or vision loss. He had a CT of the brain, which showed an area of old infarct. He reports his symptoms have cleared. PAST MEDICAL HISTORY: Hypertension, CHF, and hyperlipidemia. SOCIAL HISTORY: Positive for tobacco and alcohol, but no illicit drug use. FAMILY HISTORY: Noncontributory. ALLERGIES: IODINE AND SPIRONOLACTONE. REVIEW OF SYSTEMS: Ten-system review of systems otherwise negative. PHYSICAL EXAMINATION: VITAL SIGNS: Blood pressure 145/90, pulse 78, and respirations 16. HEENT: Pupils are equal. Conjunctivae are clear. Oropharynx clear. Cranium; normocephalic and atraumatic. NECK: Supple. No lymphadenopathy. EXTREMITIES: No cyanosis. NEUROLOGIC: He is alert and appropriate. His speech is fluent and clear. Cranial nerves appear to be intact. Motor exam showed equal history faculty member strength. Sensations intact to touch. No abnormal movements are seen. IMAGING STUDIES: EKG shows a paced rhythm. Prior echocardiogram shows an ejection fraction of 15% to 20%. Prior CT angiogram showed an inconclusive evaluation of the carotids due to calcific plaque. LABORATORY STUDIES: Unremarkable CBC, coags, and chemistry panel. SUMMARY: This is a 58-year-old man with history of congestive heart failure, on anticoagulation. He had some transient dysarthria, which appears to have cleared. He is already on Eliquis and a statin. There seems to be a little we can do in addition to his current treatment other than rule out any carotid disease that needs to be addressed. I will continue his current treatment and he can be discharged at your discretion. Job ID: [id number]
[2018-12-28 10:19] VITALS: BMI 26.6
[2018-12-28 11:55] VITALS: BP 134/83; TEMP 97.5
[2018-12-28 12:27] LABS: Troponin I 0.286 ng/mL (< 0.028)
--- NOTE | 2018-12-28 13:09 | ULT ---
BILATERAL CAROTID DUPLEX ULTRASOUND: HISTORY: Stroke. Left-sided weakness. Facial droop. TECHNIQUE: Tyler-scale ultrasound with color-flow and spectral Doppler imaging of the extracranial carotid artery systems was performed bilaterally. FINDINGS: There is plaque formation on both sides. The peak systolic velocity in the right ICA measures 46 cm per second with an end diastolic velocity of 9 cm per second and a systolic ratio of 0.63. The peak systolic velocity in the left ICA measures 48 cm per second with an end diastolic velocity o f 15 cm per second and a systolic ratio of 0.58. Flow in both vertebral arteries remains antegrade. IMPRESSION: No evidence of hemodynamically significant stenosis. POS: [facility]
--- NOTE | 2018-12-28 17:33 | SS ---
DATE OF ADMISSION: 12/28/2018 DATE OF DISCHARGE: 12/28/2018 CHIEF COMPLAINT: Left-sided facial droop and left-sided arm weakness. HISTORY OF PRESENT ILLNESS: This 58-year-old male presented to the ED after an episode of facial droop and dysarthria on the left side. His nephew was present and saw this happened. They were playing the lottery in sitting at the kitchen table and his nephew noticed left-sided facial droop. He noted some slurred words and he had some disequilibrium. After that, the patient went into the ER for evaluation. In the ER, CT head revealed no acute process and EKG revealed he was in normal sinus rhythm. By the time that he had arrived in the ER, the left-sided facial droop and dysarthria appeared to have resolved. PAST MEDICAL HISTORY: History of stroke four months ago, cardiac arrhythmia, hypertension, CHF, gout, shingles. PAST SURGICAL HISTORY: Defibrillator. MEDICATIONS: 1. Aspirin. 2. Ambien. 3. Eliquis. 4. Coreg. 5. Entresto. 6. Torsemide. 7. Amiodarone. 8. Atorvastatin. 9. Flexeril. 10. Dexilant. 11. Breo. 12. Lasix. 13. Hydrocodone. 14. Iron. 15. Magnesium. 16. Naproxen. 17. Colchicine. SOCIAL HISTORY: Current smoker, alcohol. REVIEW OF SYSTEMS: Twelve-point review of systems unremarkable this afternoon. PHYSICAL EXAMINATION: GENERAL: No acute distress. HEENT: PERRLA. EOMI. Conjunctivae clear. NECK: Supple. CHEST: Nontender to palpation. No lesions. HEART: Regular rate and rhythm. No murmurs. LUNGS: CTA bilaterally. No respiratory distress. ABDOMEN: Soft, nontender. Bowel sounds present. NEURO: No focal deficits. CN 2 through 12 intact. Equal melter helper strength bilaterally. No dysarthria. No facial droop. SKIN: No rash or lesions. HOSPITAL COURSE: As above. DISCHARGE DIAGNOSIS: Small vessel transient ischemic attack. DISCHARGE MEDICATIONS: Increase atorvastatin to 80 mg, otherwise continued current home medicines as above. DISPOSITION: Stable. DISCHARGE INSTRUCTIONS: LOCATION: Home. DIET: Regular. ACTIVITY: As tolerated. FOLLOWUP: Follow up with Dr. Edwin Marion. I emphasized the importance of smoking cessation at length. The patient says that he will consider it. Job ID: [id number]
[2018-12-28] MEDS ORDERED: Atorvastatin Calcium 40 MG TAB PO SCH (21:00)
--- NOTE | 2019-01-04 15:06 | EKG ---
Test Reason : Blood Pressure : / mmHG Vent. Rate : 084 BPM Atrial Rate : 094 BPM P-R Int : 000 ms QRS Dur : 208 ms QT Int : 512 ms P-R-T Axes : 000 -47 079 degrees QTc Int : 605 ms Electronic ventricular pacemaker Confirmed by SHAMEKA MATA DO ([id number]), publishing editor MELVINA CLARK ([id number]) on 01/04/2019 3:05:38 PM Referred By: Confirmed By:SHAMEKA MATA DO
== END 2018-12-28 13:53 | disposition home or self-care (01) ==
LOC: ERS 05:06 → 2SE 07:30
PROVIDERS: ADMIT Family Medicine; ATTEND Family Medicine
DX: G45.9 Transient cerebral ischemic attack, unspecified (principal); I11.0 Hypertensive heart disease with heart failure; I50.9 Heart failure, unspecified; I48.20 Chronic atrial fibrillation, unspecified; E78.5 Hyperlipidemia, unspecified; M10.9 Gout, unspecified; F17.290 Nicotine dependence, other tobacco product, uncomplicated; Z79.01 Long term (current) use of anticoagulants; Z79.82 Long term (current) use of aspirin; Z79.899 Other long term (current) drug therapy; Z79.1 Long term (current) use of non-steroidal anti-inflammatories (NSAID); Z86.73 Personal history of transient ischemic attack (TIA), and cerebral infarction without residual deficits; Z88.8 Allergy status to other drugs, medicaments and biological substances; Z91.041 Radiographic dye allergy status; Z95.810 Presence of automatic (implantable) cardiac defibrillator
CPT/HCPCS: 70450; 80053; 82550; 82553; 82962; 84484 ×2; 85025; 85610; 85730; 93005; 93880; 96374; 97139; 99291; G0378 ×2; 36415; 36416; C9113

== ENCOUNTER 2019-01-10 03:27 | Emergency (ER) | payer MEDICARE, MEDICAID ==
[2019-01-10] MEDS ORDERED: Ketorolac Tromethamine 30 MG/ML VIAL ONE (04:34)
[2019-01-10] MEDS ORDERED: Cyclobenzaprine 10 MG TAB ONE (04:34)
== END 2019-01-10 05:30 | disposition home or self-care (01) ==
LOC: ERS 03:27
DX: M10.9 Gout, unspecified (principal); I11.0 Hypertensive heart disease with heart failure; I50.9 Heart failure, unspecified; D64.9 Anemia, unspecified; G47.30 Sleep apnea, unspecified; F17.210 Nicotine dependence, cigarettes, uncomplicated; Z79.899 Other long term (current) drug therapy; Z79.01 Long term (current) use of anticoagulants
CPT/HCPCS: 96372; 99283; J1885

== ENCOUNTER 2019-01-12 14:38 | Emergency (ER) | payer MEDICARE, MEDICAID ==
[2019-01-12 15:24] LABS: #Basophils 0.1 thou/uL (0.0-0.2); #Eosinphils 0.2 thou/uL (0.0-0.7); #Monocytes 0.5 thou/uL (0.11-0.59); #Neutrophils 6.5 thou/uL (1.40-6.50); %Basophils 0.7 % (0.0-1.0); %Eosinophils 2.2 % (0.0-10.0); %Lymphocytes 21.7 % (21.0-51.0); %Monocytes 5.4 % (0.0-10.0); Hemoglobin 13.2 g/dL (14.0-18.0); Mean Corpuscular HGB CONC 32.8 g/dL (32.0-36.0); Mean Corpuscular Hemoglobin 34.6 pg (27.0-31.0); RBC Distribution Width 14.9 % (11.5-14.5); Red Blood Cell (RBC) Count 3.81 mill/uL (4.70-6.10); White Blood Cell (WBC) Count 9.3 thou/uL (4.8-10.8)
[2019-01-12 15:43] LABS: Large Platelets SLIGHT; MDiff Complete? YES; Macrocytosis SLIGHT = 6-15 cells (100X) (0-5/hpf); Mean Platelet Volume 8.6 fL (7.4-10.4); Platelet Count 119 thou/uL (130-400); Platelet Morphology Comment Appears Decreased; Polychromasia SLIGHT = 2-3 cells (100X) (0-2/hpf); Stomatocytes SLIGHT = 2-5 cells (100X) (0-1/hpf); Target Cells SLIGHT = 2-5 cells (100X) (0-1/hpf)
[2019-01-12 15:47] LABS: ALT (SGPT) 13 U/L (8-55); AST (SGOT) 23 U/L (5-34); Albumin 3.9 g/dL (3.5-5.0); Alkaline Phosphatase 113 U/L (40-110); Anion Gap 13 mmol/L (10-20); BUN (Urea Nitrogen) 24 mg/dL (8.4-25.7); Bilirubin, Total 3.3 mg/dL (0.2-1.2); CK (CPK) 121 U/L (30-200); Calc. Creatinine Clearance 0 mL/min (70-130); Calcium 10.3 mg/dL (7.8-10.44); Carbon Dioxide 36 mmol/L (22-29); Chloride 91 mmol/L (98-107); Estimated GFR-MDRD 64; Globulin 3.9 g/dL (2.4-3.5); Glucose 129 mg/dL (70-105); Potassium 3.2 mmol/L (3.5-5.1); Protein, Total 7.8 g/dL (6.0-8.3); Sodium 137 mmol/L (136-145)
[2019-01-12] MEDS ORDERED: Potassium Chloride 20 MEQ TAB ONE (16:08)
[2019-01-12 16:09] LABS: CKMB 3.1 ng/mL (0-6.6)
--- NOTE | 2019-01-12 17:02 | RAD ---
EXAM: Chest PA and lateral: HISTORY: Congestive heart failure. Chest pain and shortness of breath. COMPARISON: 10/16/2018 FINDINGS: Stable right-sided defibrillator. Heart: Stable cardiomegaly. Aorta: Unremarkable Pulmonary vessels: Mild pulmonary vascular prominence Costophrenic angles: Costophrenic angles are clear. Lungs: Patchy interstitial opacities Pneumothorax: No pneumothorax Osseous structures: No osseous abnormalities IMPRESSION: Cardiomegaly. Mild pulmonary vascular prominence and interstitial opacities. Congestive heart failure .
== END 2019-01-12 16:10 | disposition home or self-care (01) ==
LOC: ERS 14:38
DX: I11.0 Hypertensive heart disease with heart failure (principal); I50.9 Heart failure, unspecified; I49.9 Cardiac arrhythmia, unspecified; I48.91 Unspecified atrial fibrillation; K21.9 Gastro-esophageal reflux disease without esophagitis; M10.9 Gout, unspecified; G47.30 Sleep apnea, unspecified; F17.210 Nicotine dependence, cigarettes, uncomplicated; D50.9 Iron deficiency anemia, unspecified; Z79.899 Other long term (current) drug therapy; Z79.01 Long term (current) use of anticoagulants
CPT/HCPCS: 36415; 71046; 80053; 82550; 82553; 83880; 84484; 85025; 93005; 94760

== ENCOUNTER 2019-01-13 08:33 | Inpatient (IN) | payer MEDICARE, MEDICAID ==
[2019-01-13 09:15] LABS: #Basophils 0.1 thou/uL (0.0-0.2); #Eosinphils 0.1 thou/uL (0.0-0.7); #Monocytes 0.6 thou/uL (0.11-0.59); %Basophils 0.7 % (0.0-1.0); %Eosinophils 0.8 % (0.0-10.0); %Monocytes 7.2 % (0.0-10.0); %Neutrophils 68.3 % (42.0-75.0); Hemoglobin 13.4 g/dL (14.0-18.0); Mean Corpuscular HGB CONC 30.7 g/dL (32.0-36.0); Mean Corpuscular Hemoglobin 32.8 pg (27.0-31.0); Mean Platelet Volume 9.5 fL (7.4-10.4); Platelet Count 124 thou/uL (130-400); RBC Distribution Width 15.1 % (11.5-14.5); Red Blood Cell (RBC) Count 4.08 mill/uL (4.70-6.10); White Blood Cell (WBC) Count 8.7 thou/uL (4.8-10.8)
--- NOTE | 2019-01-13 09:35 | RAD ---
XR Chest 1 View Portable History: Chest pain Comparison: Radiograph prior day Findings: Heart size is enlarged. Small right effusion. Trace left effusion. Mild portal venous conge stion. No pneumothorax. Cardiac device is similar. Impression: Small pleural effusions, cardiomegaly and mild pulmonary venous congestion.
[2019-01-13 09:53] LABS: CKMB 2.9 ng/mL (0-6.6)
[2019-01-13 10:20] LABS: ALT (SGPT) 16 U/L (8-55); AST (SGOT) 30 U/L (5-34); Alkaline Phosphatase 95 U/L (40-110); Anion Gap 20 mmol/L (10-20); BUN (Urea Nitrogen) 31 mg/dL (8.4-25.7); Bilirubin, Total 5.4 mg/dL (0.2-1.2); Calc. Creatinine Clearance 0 mL/min (70-130); Carbon Dioxide 30 mmol/L (22-29); Chloride 90 mmol/L (98-107); Estimated GFR-MDRD 42; Globulin 4.6 g/dL (2.4-3.5); Glucose 94 mg/dL (70-105); Potassium 3.4 mmol/L (3.5-5.1); Protein, Total 8.6 g/dL (6.0-8.3); Sodium 137 mmol/L (136-145)
[2019-01-13] MEDS ORDERED: Furosemide 20 MG/2 ML VIAL ONE (11:25)
[2019-01-13 11:35] LABS: ALT (SGPT) 16 U/L (8-55); AST (SGOT) 30 U/L (5-34); Alkaline Phosphatase 93 U/L (40-110); Bilirubin, Direct 3.3 mg/dL (0.1-0.3); Bilirubin, Total 5.2 mg/dL (0.2-1.2); Protein, Total 8.6 g/dL (6.0-8.3)
--- NOTE | 2019-01-13 11:52 | ULT ---
GALLBLADDER ULTRASOUND: CLINICAL HISTORY: Elevated bilirubin. FINDINGS: There is elongation of the liver with the length demonstrated at 20 cm. A focal hepatic lesion is not visualized. There is gallbladder wall thickening and edema, 5 to 6 mm in thickness. No shadowing cholelithiasis. Kee sign is reported as negative by the farm machine operator. The common duct is normal where demonstrated at 5 mm in diameter. Incidental note of irregular pulsatility/wave-form pattern of the imaged portal vein. This is nonspec ific although could relate to entities such as right heart strain/heart failure. Correlate clinically in this regard. No ascites is seen. IMPRESSION: 1. Abnormal gallbladder wall thickening and edema. Recommend clinical correlation to exclude evidence of cholecystitis. No associated shadowing cholelithiasis. 2. Normal sized common duct at 5 mm. 3. Pulsatility/irregular wave-form of the imaged portal vein, as above. Correlate clinically. POS: [facility]
[2019-01-13 12:18] LABS: Bilirubin Negative (Negative); Blood, Urine Negative (Negative); Clarity Clear (Clear); Glucose, Urine (Dipstick) Normal (Negative); Leukocyte Negative Leu/uL (Negative); Nitrite Negative (Negative); Protein, Urine (Dipstick) 20 mg/dL (Neg-Trace)
[2019-01-13 12:29] LABS: Troponin I 0.306 ng/mL (< 0.028)
[2019-01-13] MEDS ORDERED: Ondansetron ODT 4 MG TAB PO PRN (13:13)
[2019-01-13] MEDS ORDERED: Ondansetron PF 4 MG/2 ML Vial IVP PRN (13:13)
[2019-01-13] MEDS ORDERED: Senokot S 8.6-50 MG TAB PO PRN (13:13)
--- NOTE | 2019-01-13 13:32 | PDOC.FPRHP ---
- History of Present Illness Chief Complaint: Weakness, Chest tightness, Abd pain History of Present Illness: Patient is a 58 yo male who presents with complaint of weakness and SOB that started yesterday. He was seen in the ED yesterday at [facility] and was found to have CHF on CXR. At that time he was determined to be near his baseline and he was sent home. Patient says when he woke up earlier this morning he additionally had some abdominal pain, chest tightness and increased SOB which prompted him to return to the ED. He endorses chills for the past 2 days but has not taken his temperature. Has had nausea for past 3 days and vomited once this morning. His last BM about 1 hour ago was loose, watery and yellow in color, previous BMs to this have been solid and dark brown. Patient is known to [facility] and has at -home visits 2x/week. The patient's nurse who performs home visits was present in the room during history and exam, she relays that the patient was in a similar condition when she visited him on Sunday but newly complains of weakness and achyness. ED Course: Found to have [id number], CXR performed concerning for CHF. Given IV Lasix 20 mg x 1 dose. Trops 0.288 > 0.30 > pending. TBili 5.4, Direct 3.3. RUQ U/S ordered and pending. Influenza screen pending. - Allergies/Adverse Reactions Allergies Allergy/AdvReac Type Severity Reaction Status Date / Time iodine Allergy Mild Hives Verified 12/28/18 09:31 spironolactone Allergy Verified 12/28/18 09:31 - Home Medications Medication Instructions Recorded Confirmed Type Aspirin [Ecotrin Low Strength] 81 mg PO DAILY #0 tab 04/21/13 12/28/18 Rx Zolpidem Tartrate [Ambien] 10 mg PO HS PRN 08/20/18 12/28/18 History Apixaban [Eliquis] 5 mg PO BID #60 tab 11/05/18 12/28/18 Rx Carvedilol [Coreg] 3.125 mg PO BID #60 tab 11/05/18 12/28/18 Rx Sacubitril/Valsartan [Entresto 24 1 tab PO BID #60 tab 11/05/18 12/28/18 Rx mg-26 mg Tablet] Torsemide [Demadex] 20 mg PO DAILY #30 tab 11/05/18 12/28/18 Rx Amiodarone [Cordarone] 200 mg PO DAILY 12/01/18 12/28/18 History Atorvastatin Calcium 80 mg PO DAILY 30 Days #30 tablet 12/28/18 Rx Cyclobenzaprine [Flexeril] 10 mg PO PRN PRN 12/28/18 12/28/18 History Dexlansoprazole [Dexilant] 60 mg PO DAILY 12/28/18 12/28/18 History Fluticasone/Vilanterol [Breo 1 puff INH PRN PRN 12/28/18 12/28/18 History Ellipta] Furosemide [Lasix] 80 mg PO BID 12/28/18 12/28/18 History HYDROcodone/Acetaminophen 1 - 2 tab PO PRN PRN 12/28/18 12/28/18 History [Hydrocodone-Acetamin 10-325 mg] Iron,Carbonyl [Feosol] 325 mg PO DAILY 12/28/18 12/28/18 History Magnesium 200 mg PO DAILY 12/28/18 12/28/18 History Metolazone [Zaroxolyn] 5 mg PO PRN PRN 12/28/18 12/28/18 History Naproxen 500 mg PO PRN PRN 12/28/18 12/28/18 History Probenecid/Colchicine 1 tab PO BID 12/28/18 12/28/18 History [Probenecid-Colchicine Tablet] Comments: Home med list includes: Eliquis 5, Pantoprazole, Ferrous sulfate, Amiodarone, Torsemide, Carvedilol, Naproxen Await formal med rec for dosing. - History PMHx: HTN, CHF, Afib with AICD, Mitral valve prolapse, Gout, Shingles, Cirrhosis 2/2 EtOH abuse, GERD, Polysubstance abuse; seen for stroke 4 months ago PSHx: defibrillator with pacemaker placement in 2014, cardiac ablation FHx: Cancer (unknown types) in mother and father. HTN, DM, CAD. Social: Smokes 1/2 ppd. Admits to many years of drinking heavily but denies drinking any EtOH in past 2 weeks. Former drug abuse of cocaine & marijuana. - Review of Systems General: reports: fever/chills, fatigue. denies: weight/appetite/sleep changes Eyes: denies: eye pain, vision changes ENT: denies: nasal congestion, rhinorrhea Respiratory: reports: shortness of breath. denies: cough, congestion Cardiovascular: reports: chest pain (chest tightness in center of chest). denies: palpitation, edema Gastrointestinal: reports: nausea, vomiting, diarrhea, abdominal pain. denies: GI bleeding Genitourinary: denies: dysuria Skin: reports: jaundice. denies: rashes, lesions Musculoskeletal: reports: pain. denies: tenderness, stiffness, swelling Neurological: reports: weakness. denies: numbness - Vital signs BP: 141/97 HR: 69 RR: 18 Tmax: 98.3 Pox: 94% on RA Wt: 88 kg - Physical Exam Constitutional: NAD, awake, alert and oriented, well developed HEENT: normocephalic and atraumatic, EOMI, conjunctiva clear, grossly normal vision, grossly normal hearing, MMM -HEENT: scleral icterus present Neck: supple, FROM, no JVD Chest: no-tender to palpation Heart: normal S1/S2, pulses present -Heart: paced rhythm, normal rate. Grade 1/2 systolic murmur over mitral valve. Trace non-pitting edema in bilateral LE Lungs: no respiratory distress, no wheezing, other (occasional rhonchi in bilateral bases, worse on right. Clears with cough.) Abdomen: soft, bowel sounds present, no masses/distention -Abdomen: TTP with rebound tenderness in RUQ and LLQ. Musculoskeletal: normal structure, normal tone, ROM grossly normal Neurological: no focal deficit, normal sensation Skin: no rash/lesions, good turgor Heme/Lymphatic: no unusual bruising or bleeding Psychiatric: normal mood and affect, intact recent and remote memory FMR H&P: Results - Labs Result Diagrams: 01/13/19 09:01 01/13/19 09:42 Lab results: WBC 8.7 thou/uL (4.8-10.8) 01/13/19 09:01 Hgb 13.4 g/dL (14.0-18.0) L 01/13/19 09:01 Hct 43.7 % (42.0-52.0) 01/13/19 09:01 MCV 107.0 fL (78.0-98.0) H 01/13/19 09:01 Plt Count 124 thou/uL (130-400) L 01/13/19 09:01 Neutrophils % 68.3 % (42.0-75.0) 01/13/19 09:01 Sodium 137 mmol/L (136-145) 01/13/19 09:42 Potassium 3.4 mmol/L (3.5-5.1) L 01/13/19 09:42 Chloride 90 mmol/L (98-107) L 01/13/19 09:42 Carbon Dioxide 30 mmol/L (22-29) H 01/13/19 09:42 BUN 31 mg/dL (8.4-25.7) H 01/13/19 09:42 Creatinine 1.98 mg/dL (0.7-1.3) H 01/13/19 09:42 Glucose 94 mg/dL (70-105) 01/13/19 09:42 Calcium 11.0 mg/dL (7.8-10.44) H 01/13/19 09:42 Total Bilirubin 5.2 mg/dL (0.2-1.2) H 01/13/19 09:42 AST 30 U/L (5-34) 01/13/19 09:42 ALT 16 U/L (8-55) 01/13/19 09:42 Alkaline Phosphatase 93 U/L (40-110) 01/13/19 09:42 CK-MB (CK-2) 2.9 ng/mL (0-6.6) 01/13/19 09:01 B-Natriuretic Peptide 1287.3 pg/mL (0-100) H 01/13/19 10:35 Serum Total Protein 8.6 g/dL (6.0-8.3) H 01/13/19 09:42 Albumin 4.0 g/dL (3.5-5.0) 01/13/19 09:42 Urine Ketones Negative mg/dL (Negative) 01/13/19 11:26 Urine Blood Negative (Negative) 01/13/19 11:26 Urine Nitrite Negative (Negative) 01/13/19 11:26 Ur Leukocyte Esterase Negative Froylan/uL (Negative) 01/13/19 11:26 - EKG Interpretation EKG: Paced rhythm at 68. - Radiology Interpretation Chest x-ray Status: report reviewed by me (Small pleural effusions, cardiomegaly, mild pulmonary venous congestion.) FMR H&P: A/P - Problem List (1) Macrocytic anemia Current Visit: Yes Status: Acute Code(s): D53.9 - NUTRITIONAL ANEMIA, UNSPECIFIED (2) Hyperbilirubinemia Current Visit: Yes Status: Acute Code(s): E80.6 - OTHER DISORDERS OF BILIRUBIN METABOLISM (3) JOSE A (acute kidney injury) Current Visit: No Status: Acute Code(s): N17.9 - ACUTE KIDNEY FAILURE, UNSPECIFIED (4) Chest pain Current Visit: No Status: Acute Code(s): R07.9 - CHEST PAIN, UNSPECIFIED Qualifiers: Chest pain type: other chest pain Qualified Code(s): R07.89 - Other chest pain; R07.8 - Other chest pain (5) GERD (gastroesophageal reflux disease) Current Visit: No Status: Acute Code(s): K21.9 - GASTRO-ESOPHAGEAL REFLUX DISEASE WITHOUT ESOPHAGITIS Qualifiers: Esophagitis presence: without esophagitis Qualified Code(s): K21.9 - Gastro -esophageal reflux disease without esophagitis (6) Chronic atrial fibrillation Current Visit: No Status: Chronic Code(s): I48.2 - CHRONIC ATRIAL FIBRILLATION * DO NOT USE * - Plan Patient is a 58 yo male who presents with weakness, SOB, and chest tightness is admitted for JOSE A and Hyperbilirubinemia #JOSE A -Cr 1.93, baseline Cr of 1.0 in early Nov 2018 -start maintenance IVF LR @ 125 ml/hr--patient does not appear to have CHF exac at this time -monitor AM CMP #Atypical Chest Pain -trops 0.288 > 0.306 > pending, will trend -CXR shows bilateral small pleural effusions, cardiomegaly, and pulmonary congestion--patient appears euvolemic, no signs of fluid overload on exam -given IV Lasix 20 in ED -will check Influenza A&B screen, if positive will start Tamiflu since sx within 48 hour window -continue home Torsemide, consider increasing dosing if appears to have increasing fluid overload, currently stable -BNP 1614 > 1287 #Hyperbilirubinemia; #Abdominal Pain -RUQ U/S shows gallbladder wall thickening and edema, suggestive of cholecystitis -will order HIDA scan -consider General Surgery consult if HIDA scan abnormal -UA neg #GERD -continue home Pantoprazole #AFib, paced -defibrillator and pacemaker placed in 2013 -currently paced at 68 bpm -EKG shows paced rhythm #Macrocytic Anemia -previously microcytic anemia -MCV 107, Hgb 13 -will check B12 and folate -likely 2/2 EtOH abuse Diet: Heart Healthy with NPO at midnight, anticipate possible surgery VTE: SCDs, home Eliquis 5 mg daily Code: FULL PCP: Doni Dispo: Stable, admitted to inpatient on telemetry. Will order HIDA scan to evaluate for cholecystitis, if abnormal will consult General Surgery. Check Flu screen. Check B12 & folate for macrocytic anemia workup. Continue to trend trops. Anticipate LOS >48 hours. FMR H&P: Upper Level - Pertinent history 58 yo M here with complaint of abdominal pain, diarrhea, and malaise for the past day. He is frequently seen in the ER and is a [facility] patient. At the time of H&P [facility] DISPERSION MIXER was in the room and noted that pts exam and volume status appeared to be baseline. Lab values are also generally at the patients baseline , however it was noted by the ED that his bili was increased from normal. RUQ US concerning for edema and thickening of GB. Flu is positive for A and B PMHx CHF CAD A Fib Hx of CVA Gout Surgical hx AICD Social Hx Heavy etoh hx, no drinks for past 2 weeks Denies smoking or drugs Allergies Iodine Spironolactone - Pertinent findings See purchasing internship note for full ROS, PE, vitals, and labs ROS General Complains of fever and chills CV Denies CP, palpitation, or chronic peripheral edema Resp Denies SOB cough GI Complains of n/v/d and abdominal pain denies increased frequency or dysuria Neuro denies numbness or weakness PE General A&O x4, NAD HEENT NCAT CV RRR, systolic murmur Resp CTA, no respiratory distress Abd RUQ TTP, no distension, soft, no guarding Extremities no edema, equal pedal pulses Neuro no focal deficits, CN II-XII intact - Plan Date/Time: 01/13/19 1327 I, Elias Ge DO, have evaluated this patient and agree with findings/plan as outlined by purchasing internship resident. Pertinent changes/additions are listed here. 1.Hyperbilirubinemia -Hepatic congestion vs cholecystitis -Monitor with morning CMP -HIDA scan pending. US does not show obstructive stone 2.Influenza A and B -Start tamiflu 3.HFrEF -Does not appear overloaded at this time. BNP is at baseline. Trop is at baseline. 4.JOSE A on CKD -Likely secondary to diarrhea, gentle IVF. -Monitor in am 5.Macrocytic anemia - at about baseline and asymptomatic. Most likely related to etoh abuse. 6. Elevated trop - Trend and monitor on tele 7. Elevated BNP - at baseline PPx SCD Diet HH, NPO at midnight Code Full
[2019-01-13] MEDS ORDERED: Acetaminophen 325 MG/10.15 ML UDCUP PO PRN (13:46)
[2019-01-13 15:24] LABS: Troponin I 0.271 ng/mL (< 0.028)
[2019-01-13] MEDS: Lactated Ringer's 1,000 ML IV SCH ×2 (17:08→20:53)
--- NOTE | 2019-01-13 17:14 | NM ---
Radionucleotide hepatobiliary scan HISTORY: Abdominal pain. Cholecystitis. FINDINGS: Early images show physiologic uptake of radiotracer throughout the hepatic parenchyma. Exte nsive motion artifact. Gallbladder first seen 16 minutes. Small bowel at 33 minutes. Patient refused to complete imaging for the exam. Gallbladder ejection fraction not obtained. IMPRESSION: Patent biliary system.
[2019-01-13] MEDS: Oseltamivir 75 MG CAP PO SCH (20:53)
[2019-01-13] MEDS ORDERED: Acetaminophen 650 MG/20.3 ML UDCUP PO PRN (23:34)
[2019-01-14] MEDS: Lactated Ringer's 1,000 ML IV SCH ×3 (01:45→19:53)
[2019-01-14] MEDS: Calcium Carbonate 500 MG ChewTAB PO PRN ×2 (04:58→09:19)
--- NOTE | 2019-01-14 06:01 | PDOC.FM ---
- Subjective Subjective: Patient states he still feels nauseous, no episodes of vomiting overnight. No appetite and did not eat dinner last night. Having BMs with 1/2 solid, 1/2 loose stools, brown in color and denies blood in BMs. Patient additionally complains of cough with thick sputum, with congestion. No fevers overnight. Patient had HIDA scan completed yesterday, he said shortly after beginning the scan he became anxious and claustrophobic and asked for the scan to be stopped. Thus his gallbladder was unable to be evaluated during the scan. - Objective MAR Reviewed: Yes Vital Signs & Weight: Vital Signs (12 hours) Temp Pulse Resp BP Pulse Ox 01/14/19 04:00 97.5 F L 59 L 20 153/104 H 92 L 01/13/19 20:51 96.8 F L 65 20 139/84 93 L Weight Weight 88.224 kg Result Diagrams: 01/14/19 06:07 01/14/19 06:07 Phys Exam - Physical Examination Constitutional: NAD HEENT: moist MMs scleral icterus present Neck: no JVD, supple, full ROM Respiratory: no wheezing scattered rhonchi throughout, decreased breath sounds at bilat bases Cardiovascular: RRR grade 1/2 murmur over mitral valve Gastrointestinal: soft, non-tender, no distention, positive bowel sounds Musculoskeletal: no edema, pulses present Neurological: normal sensation, moves all 4 limbs Psychiatric: normal affect, A&O x 3 Skin: no rash, normal turgor Dx/Plan (1) Macrocytic anemia Code(s): D53.9 - NUTRITIONAL ANEMIA, UNSPECIFIED Status: Acute (2) Hyperbilirubinemia Code(s): E80.6 - OTHER DISORDERS OF BILIRUBIN METABOLISM Status: Acute (3) JOSE A (acute kidney injury) Code(s): N17.9 - ACUTE KIDNEY FAILURE, UNSPECIFIED Status: Acute (4) Chest pain Code(s): R07.9 - CHEST PAIN, UNSPECIFIED Status: Acute Qualifiers: Chest pain type: other chest pain Qualified Code(s): R07.89 - Other chest pain; R07.8 - Other chest pain (5) GERD (gastroesophageal reflux disease) Code(s): K21.9 - GASTRO-ESOPHAGEAL REFLUX DISEASE WITHOUT ESOPHAGITIS Status: Acute Qualifiers: Esophagitis presence: without esophagitis Qualified Code(s): K21.9 - Gastro -esophageal reflux disease without esophagitis (6) Chronic atrial fibrillation Code(s): I48.2 - CHRONIC ATRIAL FIBRILLATION * DO NOT USE * Status: Chronic - Plan Plan: Patient is a 58 yo male who presents with weakness, SOB, and chest tightness is admitted for JOSE A and Hyperbilirubinemia #JOSE A -Cr 1.93, baseline Cr of 1.0 in early Nov 2018 -start maintenance IVF LR @ 125 ml/hr--patient does not appear to have CHF exac at this time -monitor AM CMP -Cr down to 1.8 today (01/14) #Atypical Chest Pain -trops 0.288 > 0.306 > 0.271 -CXR shows bilateral small pleural effusions, cardiomegaly, and pulmonary congestion--patient appears euvolemic, no signs of fluid overload on exam -given IV Lasix 20 in ED -continue home Torsemide, consider increasing dosing if appears to have increasing fluid overload, currently stable -BNP 1614 > 1287 #Influenza -Influenza screen positive for types A&B, will start Tamiflu since sx within 48 hour window (01/13 until 01/18, 10 doses) #Hyperbilirubinemia; #Abdominal Pain -TBili 5.4 (up from 3 on 01/12) and Direct Bili 3.3 on admission--TBili at 4.8 today -RUQ U/S shows gallbladder wall thickening and edema, suggestive of cholecystitis -HIDA scan performed on 01/13, patient refused during procedure before gallbladder was able to be visualized therefore unable to evaluate gallbladder EF -consider General Surgery consult if symptoms continue to worsen -UA neg #GERD -continue home Pantoprazole #AFib, paced -defibrillator and pacemaker placed in 2013 -currently paced at 68 bpm -EKG shows paced rhythm #Macrocytic Anemia -previously microcytic anemia -MCV 107, Hgb 13 -B12 1734 (high) and folate 11.7 (normal) -likely 2/2 EtOH abuse Diet: Heart Healthy with NPO at midnight, anticipate possible surgery VTE: SCDs, home Eliquis 5 mg daily Code: FULL PCP: Doni Dispo: Stable, admitted to inpatient on telemetry. Will consider consult General Surgery if clinical condition worsens. Continue Tamiflu. Anticipate LOS <48 hours.
[2019-01-14 06:32] LABS: Hemoglobin 13.4 g/dL (14.0-18.0); Mean Corpuscular HGB CONC 31.9 g/dL (32.0-36.0); Mean Corpuscular Hemoglobin 33.8 pg (27.0-31.0); Mean Platelet Volume 9.2 fL (7.4-10.4); Platelet Count 124 thou/uL (130-400); RBC Distribution Width 14.9 % (11.5-14.5); Red Blood Cell (RBC) Count 3.96 mill/uL (4.70-6.10); White Blood Cell (WBC) Count 9.5 thou/uL (4.8-10.8)
[2019-01-14 06:43] LABS: ALT (SGPT) 22 U/L (8-55); AST (SGOT) 46 U/L (5-34); Albumin 3.6 g/dL (3.5-5.0); Alkaline Phosphatase 90 U/L (40-110); Anion Gap 20 mmol/L (10-20); BUN (Urea Nitrogen) 33 mg/dL (8.4-25.7); Bilirubin, Total 4.8 mg/dL (0.2-1.2); Calc. Creatinine Clearance 55 mL/min (70-130); Calcium 10.5 mg/dL (7.8-10.44); Carbon Dioxide 24 mmol/L (22-29); Chloride 94 mmol/L (98-107); Estimated GFR-MDRD 47; Globulin 4.4 g/dL (2.4-3.5); Glucose 97 mg/dL (70-105); Potassium 3.4 mmol/L (3.5-5.1); Sodium 135 mmol/L (136-145)
[2019-01-14] MEDS ORDERED: Non-Formulary Item 1 EACH (Zolpidem Tartrate [Ambien] 10 MG) PO PRN (07:47)
[2019-01-14] MEDS ORDERED: Metolazone 5 MG TAB PO PRN (07:47)
[2019-01-14] MEDS ORDERED: Naproxen 500 MG TAB PO PRN (07:47)
[2019-01-14] MEDS ORDERED: Non-Formulary Item 1 EACH (Fluticasone/Vilanterol [Breo Ellipta] 1 PUFF) INH PRN (07:47)
[2019-01-14] MEDS ORDERED: Cyclobenzaprine 10 MG TAB PO PRN (07:47)
[2019-01-14] MEDS ORDERED: HYDROcodone/Acetaminophen 10/325 mg Tablet PO PRN (07:47)
[2019-01-14] MEDS ORDERED: Mometasone/Formoterol 120 PUFF INHALER INH PRN (08:15)
[2019-01-14] MEDS ORDERED: Zolpidem Tartrate 5 MG TAB PO PRN (08:18)
[2019-01-14] MEDS: Amiodarone 200 MG TAB PO SCH (08:40)
[2019-01-14] MEDS: Carvedilol 3.125 MG TAB PO SCH ×2 (08:40→19:52)
[2019-01-14] MEDS: Torsemide 20 MG TAB PO SCH (08:40)
[2019-01-14] MEDS: Aspirin 81 mg Enteric Coated Tablet PO SCH (08:40)
[2019-01-14 08:41] LABS: Band 1 % (5-11); Lymphocytes 32 % (21-51); MDiff Complete? YES; Monocytes 8 % (0-10); Neutrophil 59 % (42-75); RBC Morphology Normal
[2019-01-14] MEDS: Ferrous Sulfate 325 MG TAB PO SCH (08:41)
[2019-01-14] MEDS: Furosemide 80 MG TAB PO SCH ×2 (08:41→19:52)
[2019-01-14] MEDS: Magnesium Oxide 400 MG TAB PO SCH (08:41)
[2019-01-14] MEDS: Oseltamivir 75 MG CAP PO SCH ×2 (08:42→19:52)
[2019-01-14] MEDS ORDERED: IRON CARBONYL PO SCH (09:00)
[2019-01-14] MEDS ORDERED: PROBENECID PO SCH (09:00)
[2019-01-14] MEDS ORDERED: COLCHICINE PO SCH (09:00)
[2019-01-14] MEDS ORDERED: MAGNESIUM 200 MG PO SCH (09:00)
[2019-01-14] MEDS ORDERED: FLU VACC QS2019-20(6MOS UP)/PF 60 MCG/0.5 ML SYRINGE IM ONE (09:00)
[2019-01-14] MEDS ORDERED: Non-Formulary Item 1 EACH (Dexlansoprazole [Dexilant] 60 MG) PO SCH (09:00)
[2019-01-14] MEDS ORDERED: Non-Formulary Item 1 EACH (Atorvastatin Calcium [Atorvastatin Calcium] 80 MG) PO SCH (09:00)
[2019-01-14] MEDS ORDERED: Apixaban 5 MG TAB PO SCH (09:00)
[2019-01-14] MEDS ORDERED: Nitroglycerin 0.4 MG TAB (25 Tab Bottle) ONE (09:28)
[2019-01-14] MEDS ORDERED: Nitroglycerin 0.4 MG TAB (25 Tab Bottle) SL PRN (09:46)
--- NOTE | 2019-01-14 11:12 | HP ---
The history and physical was performed on yesterday December in the ER. HISTORY OF PRESENT ILLNESS: I discussed the case with Dr. Madonna Cook and I agree with her assessment and plan. Briefly, Mr. Aldrich is a 58-year-old black man with a very complicated past medical history consisting of among other things, a nonischemic cardiomyopathy. He has made several ER visits in the last week or two for shortness of breath and chest pain. He has also had some right upper quadrant pain that needs to be investigated further. In the event, he had another episode earlier today and yesterday of some abdominal pain and chest tightness associated with increased shortness of breath. This prompted his most recent visit to the ER. PHYSICAL EXAMINATION: GENERAL: Currently, he is awake and alert. He is in no acute distress, but he does complain of dyspnea. VITAL SIGNS: His blood pressure is 140/97, his heart rate is 70 and regular, respirations are 18. He is afebrile. His room air pulse ox is 94%. EAR, NOSE, AND THROAT: No erythema, no exudate. NECK: Supple without JVD. CARDIAC: The PMI is in the fifth intercostal space, midclavicular line. There is an S4 apical gallop. He has a grade 2/6 holosystolic murmur heard best over the mitral valve area. LUNGS: Clear without rales or wheezes. ABDOMEN: Flat and soft, but no guarding or rebound. EXTREMITIES: 1+ edema. NEUROLOGIC: No focal deficits. LABORATORY DATA: CBC; white count is 8700, hemoglobin 13.4, hematocrit 43.7 with an MCV of 107. Chemistries; his troponin is elevated at 0.306, placing him in the NSTEMI range. His BNP is elevated at 1287 which is stable for him. Sodium is 135, potassium 3.4, chloride 94, bicarb is 24, BUN 33, creatinine 1.80. EKG shows a paced mechanism. ASSESSMENT: Chest pain in a patient with history of cardiomyopathy, abdominal pain. PLAN: The patient will be admitted for complete workup including possibly cardiac consultation. Job ID: [id number]
--- NOTE | 2019-01-14 11:12 | PRG ---
DATE OF SERVICE: 01/14/2019 Mr. Aldrich had another episode of chest discomfort this morning. I reviewed his previous records from several months ago. At that time, he had a stress test that showed fixed deficits throughout the distribution of the circulation of his left ventricle. I feel it will be prudent to consult Cardiology to consider cardiac catheterization to further clarify these areas of fixed defect, particularly given that he is still having chest pain and shortness of breath. Cardiology consultation will be arranged. Job ID: [id number]
--- NOTE | 2019-01-14 16:33 | EKG ---
Test Reason : C/O CHEST PAIN Blood Pressure : / mmHG Vent. Rate : 066 BPM Atrial Rate : 066 BPM P-R Int : 000 ms QRS Dur : 202 ms QT Int : 610 ms P-R-T Axes : 000 -55 090 degrees QTc Int : 639 ms Electronic ventricular pacemaker Premature ectopic complexes When compared with ECG of 13-JAN-2019 08:44, (Unconfirmed) Vent. rate has decreased BY 2 BPM Confirmed by CARLOTA RODRIGUEZ ([id number]) on 01/14/2019 4:33:18 PM Referred By: DESEAN Confirmed By:CARLOTA RODRIGUEZ
[2019-01-14] MEDS: Atorvastatin Calcium 40 MG TAB PO SCH (19:52)
--- NOTE | 2019-01-14 22:26 | CON ---
DATE OF CONSULTATION: 01/14/2019 REASON FOR CONSULTATION: Positive troponins and chest pain. HISTORY OF PRESENT ILLNESS: Mr. Aldrich is a pleasant 58-year-old gentleman, who comes to the hospital for increased shortness of breath and chest pain. He had abdominal pain with chest pain and shortness of breath. He has a history of nonischemic cardiomyopathy. He was given some Lasix and sent home. He had to come back as he continued to feel short-winded and had abdominal pain and chest pain, so he decided to come back for this. He was admitted the second time around. His troponins were trended, were mildly positive, so Cardiology has been consulted for consideration of a heart catheterization. During his admission, he was tested for the flu and it was an indeterminate test, not because he could not tell, but it was positive for both influenza A and B, which is extremely rare. He had a repeat and the repeat was also positive for both A and B. Looking back at his records, he had a positive flu in 2014 that was also positive for both A and B. He has never had a negative flu test here in the hospital as far as I can tell. All the flu tests that I have reviewed have been positive for both A and B. He had some chills yesterday, but he did not quantify a fever. He has not had a fever here in the hospital. He was started on Tamiflu and Cardiology has been consulted for this. Currently, he denies any chest pain, tightness, or pressure. His shortness of breath is better. PAST MEDICAL HISTORY: 1. Chronic systolic heart failure, EF at 50% to 20%. 2. Nonischemic cardiomyopathy with normal heart catheterization about 11 years ago. 3. Chronic atrial fibrillation, on full anticoagulation with Eliquis. 4. Hypertension. 5. Gout. 6. Chronically mildly elevated troponins. 7. Chronic kidney disease, stage 3. 8. Chronic low back pain. 9. GERD. 10. 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 PAST SURGICAL HISTORY: 1. AICD in place. 2. Normal heart catheterization several years ago. OUTPATIENT MEDICATIONS: 1. Eliquis 2.5 mg twice a day. 2. Carvedilol. 3. Aspirin 81 a day. 4. Colchicine. 5. Vitamin D3. 6. Potassium chloride. 7. Pantoprazole. 8. Vicodin. 9. Entresto 49/51 b.i.d. 10. Ambien. ALLERGIES: IODINE AND ALDACTONE. SOCIAL HISTORY: No alcohol, tobacco, or drugs. FAMILY HISTORY: Noncontributory. REVIEW OF SYSTEMS: A 12-point review of systems was done and was negative unless stated in the history of present illness. PHYSICAL EXAMINATION: VITAL SIGNS: Temperature 97.6, pulse 83, respiratory rate 18, saturation 94% on room air, blood pressure 123/80. GENERAL: Awake, alert, oriented x3, in no distress. HEENT: Normocephalic, atraumatic. NECK: Supple. LUNGS: Have mild crackles at bases. CARDIOVASCULAR: S1 and S2. No S3 or S4. There is a grade 2/6 systolic murmur in the left sternal border. ABDOMEN: Soft, positive bowel sounds. EXTREMITIES: Trace edema. SKIN: Warm and dry. LABORATORY DATA: Laboratory work was reviewed. CBC with a white count of 9.5, hemoglobin 13, hematocrit 42, platelet count 124. Chemistry with a sodium of 135, potassium of 3.4, BUN of 33, creatinine of 1.8, GFR of 47. Troponin went from 0.2 to 0.3 to 0.2 again. BNP was 1287, which is elevated BNP for him. Albumin of 3.6. Normal folate, elevated B12 at 1734. UA was unremarkable. Microbiology as above. Influenza A and B were both positive, so this is an indeterminate test. ASSESSMENT AND PLAN: 1. Chest pain. 2. Abdominal pain. 3. Acute on chronic systolic heart failure. 4. Positive A and B influenza, which is extremely rare and my suspicion is this is a false read. PLAN: 1. Currently, we cannot do a heart catheterization given he received a dose of Eliquis this morning. He has to have missed at least 4 doses of Eliquis, so we will not be able to do this up until morning. We will plan on getting this done morning if clinically indicated. 2. We will get viral cultures. 3. We would continue IV Lasix to try to lower his creatinine by improving his hemodynamics. Thank you for letting me to participate in the care of your patient. We will follow. Job ID: [id number]
[2019-01-15] MEDS: Lactated Ringer's 1,000 ML IV SCH ×2 (03:10→14:55)
[2019-01-15 05:29] LABS: #Eosinphils 0.3 thou/uL (0.0-0.7); #Lymphocytes 1.7 thou/uL (1.20-3.40); #Monocytes 0.8 thou/uL (0.11-0.59); #Neutrophils 5.6 thou/uL (1.40-6.50); %Basophils 0.5 % (0.0-1.0); %Lymphocytes 20.2 % (21.0-51.0); %Monocytes 9.7 % (0.0-10.0); %Neutrophils 66.6 % (42.0-75.0); Hemoglobin 13.7 g/dL (14.0-18.0); Mean Corpuscular HGB CONC 32.8 g/dL (32.0-36.0); Mean Corpuscular Hemoglobin 34.2 pg (27.0-31.0); Mean Platelet Volume 8.4 fL (7.4-10.4); Platelet Count 138 thou/uL (130-400); RBC Distribution Width 14.7 % (11.5-14.5); Red Blood Cell (RBC) Count 4.01 mill/uL (4.70-6.10); White Blood Cell (WBC) Count 8.4 thou/uL (4.8-10.8)
--- NOTE | 2019-01-15 05:43 | PDOC.FM ---
- Subjective Subjective: Patient has no complaints this morning. He says he had a solid BM last night. Did not have cath performed yesterday, will have cath scheduled for morning after he has been off Eliquis for 4 doses. Patient scheduled for repeat HIDA scan this morning. - Objective MAR Reviewed: Yes Vital Signs & Weight: Vital Signs (12 hours) Temp Pulse Resp BP Pulse Ox 01/15/19 04:00 97.4 F L 71 18 112/75 94 L 01/15/19 03:59 94 L 01/14/19 19:49 97.6 F 83 18 123/80 94 L Weight Admit Weight 88.224 kg Weight 88.224 kg I&O: 01/13/19 01/14/19 01/15/19 06:59 06:59 06:59 Intake Total 3595 Output Total 5500 Balance -1905 Result Diagrams: 01/15/19 04:33 01/15/19 04:33 Phys Exam - Physical Examination Constitutional: NAD HEENT: moist MMs, sclera anicteric Neck: no JVD, supple, full ROM Respiratory: no wheezing scattered rhonchi Cardiovascular: RRR grade 1/2 murmur over mitral valve Gastrointestinal: soft, non-tender, no distention, positive bowel sounds Musculoskeletal: no edema, pulses present Neurological: normal sensation, moves all 4 limbs Psychiatric: normal affect, A&O x 3 Skin: no rash, normal turgor Dx/Plan (1) Macrocytic anemia Code(s): D53.9 - NUTRITIONAL ANEMIA, UNSPECIFIED Status: Acute (2) Hyperbilirubinemia Code(s): E80.6 - OTHER DISORDERS OF BILIRUBIN METABOLISM Status: Acute (3) JOSE A (acute kidney injury) Code(s): N17.9 - ACUTE KIDNEY FAILURE, UNSPECIFIED Status: Acute (4) Chest pain Code(s): R07.9 - CHEST PAIN, UNSPECIFIED Status: Acute Qualifiers: Chest pain type: other chest pain Qualified Code(s): R07.89 - Other chest pain; R07.8 - Other chest pain (5) GERD (gastroesophageal reflux disease) Code(s): K21.9 - GASTRO-ESOPHAGEAL REFLUX DISEASE WITHOUT ESOPHAGITIS Status: Acute Qualifiers: Esophagitis presence: without esophagitis Qualified Code(s): K21.9 - Gastro -esophageal reflux disease without esophagitis (6) Chronic atrial fibrillation Code(s): I48.2 - CHRONIC ATRIAL FIBRILLATION * DO NOT USE * Status: Chronic - Plan Plan: Patient is a 58 yo male who presents with weakness, SOB, and chest tightness is admitted for JOSE A and Hyperbilirubinemia #JOSE A -Cr 1.93, baseline Cr of 1.0 in early Nov 2018 -start maintenance IVF LR @ 125 ml/hr--patient does not appear to have CHF exac at this time -monitor AM CMP -Cr down to 1.48 today (01/15) #Atypical Chest Pain -trops 0.288 > 0.306 > 0.271 -CXR shows bilateral small pleural effusions, cardiomegaly, and pulmonary congestion--patient appears euvolemic, no signs of fluid overload on exam -given IV Lasix 20 in ED, continue home Lasix 80 mg PO BID -continue home Torsemide, consider increasing dosing if appears to have increasing fluid overload, currently stable -BNP 1614 > 1287 -Consult Cardiology, Dr. Cuevas, appreciate recs--on 12/01/18 visit it appears the patient had fixed defects on his stress test, at that time Dr. Ornelas recommended cardiac cath performed as outpatient but patient never followed up with Cardiology for this. Will hold Eliquis and Aspirin in anticipation of cardiac cath to be completed on morning (after 4 missed doses of Eliquis). #Influenza -Influenza screen positive for types A&B, will start Tamiflu since sx within 48 hour window (01/13 until 01/18, 10 doses) -although A&B positive is rare, patient on admission symptomatic with flu-like symptoms #Hyperbilirubinemia; #Abdominal Pain -TBili 5.4 (up from 3 on 01/12) and Direct Bili 3.3 on admission--TBili at 3.5 today -RUQ U/S shows gallbladder wall thickening and edema, suggestive of cholecystitis -HIDA scan performed on 01/13, patient refused during procedure before gallbladder was able to be visualized therefore unable to evaluate gallbladder EF -will attempt to repeat HIDA scan today (01/15) with pre-treatment given of Ativan 1 mg IM before procedure -consider General Surgery consult if symptoms continue to worsen -UA neg #GERD -continue home Pantoprazole #AFib, paced -defibrillator and pacemaker placed in 2013 -currently paced at 68 bpm -EKG shows paced rhythm #Macrocytic Anemia -previously microcytic anemia -MCV 107, Hgb 13 -B12 1734 (high) and folate 11.7 (normal) -likely 2/2 EtOH abuse Diet: Heart Healthy with NPO at midnight, anticipate possible surgery VTE: SCDs, home Eliquis 5 mg daily Code: FULL PCP: Doni Dispo: Stable, admitted to inpatient on telemetry. Will consider consult General Surgery if clinical condition worsens, pending HIDA scan this morning. Continue Tamiflu. Cardiology consulted with planned cardiac cath for tomorrow morning, appreciate recs. Anticipate LOS >48 hours.
[2019-01-15 05:57] LABS: ALT (SGPT) 30 U/L (8-55); AST (SGOT) 55 U/L (5-34); Albumin 3.3 g/dL (3.5-5.0); Alkaline Phosphatase 95 U/L (40-110); Anion Gap 15 mmol/L (10-20); BUN (Urea Nitrogen) 31 mg/dL (8.4-25.7); Bilirubin, Total 3.5 mg/dL (0.2-1.2); Calc. Creatinine Clearance 67 mL/min (70-130); Calcium 9.9 mg/dL (7.8-10.44); Carbon Dioxide 31 mmol/L (22-29); Chloride 92 mmol/L (98-107); Estimated GFR-MDRD 59; Globulin 4.2 g/dL (2.4-3.5); Glucose 110 mg/dL (70-105); Protein, Total 7.5 g/dL (6.0-8.3); Sodium 135 mmol/L (136-145)
[2019-01-15] MEDS ORDERED: Lorazepam 2 MG/ML VIAL SLOW IVP PRN (07:00)
[2019-01-15] MEDS: Magnesium Oxide 400 MG TAB PO SCH (10:45)
[2019-01-15] MEDS: Amiodarone 200 MG TAB PO SCH (10:45)
[2019-01-15] MEDS: Torsemide 20 MG TAB PO SCH (10:45)
[2019-01-15] MEDS: Aspirin 81 mg Enteric Coated Tablet PO SCH (10:45)
[2019-01-15] MEDS: Ferrous Sulfate 325 MG TAB PO SCH (10:46)
[2019-01-15] MEDS: Furosemide 80 MG TAB PO SCH ×2 (10:46→20:14)
[2019-01-15] MEDS: Oseltamivir 75 MG CAP PO SCH ×2 (10:46→20:14)
[2019-01-15] MEDS: Carvedilol 3.125 MG TAB PO SCH ×2 (10:46→20:15)
--- NOTE | 2019-01-15 11:31 | PRG ---
DATE OF SERVICE: 01/15/2019 Mr. Aldrich was seen in consultation by the Cardiology Service. He will be taken for a cardiac cath tomorrow. We are repeating his HIDA scan. He is clinically stable and we will await the input following his cardiac catheterization. Job ID: [id number]
--- NOTE | 2019-01-15 12:18 | NM ---
HIDA SCAN: DATE: 01/15/19 INDICATION: Abdominal pain with cholecystitis. This exam is performed in follow-up to the study of 01/13/19. Patient refused to complete the previou s study. FINDINGS: 5 mCi of technetium mebrofenin were given IV. Gallbladder begins to visualize at approximately 25 minutes. Intestinal activity is confirmed. Patient given CCK slow IV, according to protocol. Gallbladder ejection fraction recorded at 86%. IMPRESSION: 1. Normal visualization of gallbladder. 2. Normal gallbladder ejection fraction. POS: OFF
--- NOTE | 2019-01-15 18:19 | PDOC.CPN ---
- Subjective Date: 01/15/19 Time: 18:16 Interval history: His Flu PCR was negative for both A and B as well as H1N1. Tiffaniecresencio a false positive result on nasal swab. No recurrence of chest pains. - Review of Systems General: denies: fever/chills, weight/appetite/sleep changes, night sweats, fatigue Respiratory: denies: cough, congestion, shortness of breath, exercise intolerance Cardiovascular: denies: chest pain, palpitation, edema, paroxysmal nocturnal dyspnea, orthopnea Gastrointestinal: denies: nausea, vomiting, diarrhea, constipation, abd pain, GI bleeding Musculoskeletal: denies: pain, tenderness, stiffness, swelling, arthritis/ arthralgias Neurological: denies: numbness, syncope, seizure, weakness - Objective Allergies/Adverse Reactions: Allergies Allergy/AdvReac Type Severity Reaction Status Date / Time iodine Allergy Mild Hives Verified 12/28/18 09:31 spironolactone Allergy Verified 12/28/18 09:31 Visit Medications: Current Medications Acetaminophen (Tylenol Elixir) 325 mg PO Q6H PRN PRN Reason: Pain Last Admin: 01/14/19 00:03 Dose: 325 mg Hydrocodone Bitart/Acetaminophen ([place] 10/325) 1 tab PO PRN PRN PRN Reason: Pain Amiodarone HCl (Cordarone) 200 mg PO DAILY PENDING SALE TO [facility] Last Admin: 01/15/19 10:45 Dose: 200 mg Aspirin (Ecotrin) 81 mg PO DAILY PENDING SALE TO [facility] Last Admin: 01/15/19 10:45 Dose: 81 mg Atorvastatin Calcium (Lipitor) 80 mg PO HS PENDING SALE TO [facility] Last Admin: 01/14/19 19:52 Dose: 80 mg Calcium Carbonate (Tums) 1,000 mg PO Q4H PRN PRN Reason: Heartburn or Indigestion Last Admin: 01/14/19 09:19 Dose: 1,000 mg Carvedilol (Coreg) 3.125 mg PO BID PENDING SALE TO [facility] Last Admin: 01/15/19 10:46 Dose: 3.125 mg Cyclobenzaprine HCl (Flexeril) 10 mg PO PRN PRN PRN Reason: Pain Ferrous Sulfate (Feosol) 325 mg PO DAILY PENDING SALE TO [facility] Last Admin: 01/15/19 10:46 Dose: 325 mg Furosemide (Lasix) 80 mg PO BID PENDING SALE TO [facility] Last Admin: 01/15/19 10:46 Dose: 80 mg Lactated Ringer's (Lactated Ringer's) 1,000 mls @ 125 mls/hr IV .Q8H PENDING SALE TO [facility] Last Admin: 01/15/19 14:55 Dose: 1,000 mls Lorazepam (Ativan) 1 mg SLOW IVP Q4H PRN PRN Reason: Anxiety/Agitation Last Admin: 01/15/19 07:23 Dose: 1 mg Magnesium Oxide (Magnesium Oxide) 200 mg PO DAILY PENDING SALE TO [facility] Last Admin: 01/15/19 10:45 Dose: 200 mg Metolazone (Zaroxolyn) 5 mg PO PRN PRN PRN Reason: Edema Mometasone Furoate/Formoterol Fumar (Dulera 100 Mcg/5 Mcg Inhaler) 2 puff INH BIDPRN PRN PRN Reason: SOB Naproxen (Naprosyn) 500 mg PO PRN PRN PRN Reason: Pain Nitroglycerin (Nitrostat) 0.4 mg SL Q5MIN PRN PRN Reason: Chest Pain Ondansetron HCl (Zofran Odt) 4 mg PO Q6H PRN PRN Reason: Nausea/Vomiting Ondansetron HCl (Zofran) 4 mg IVP Q6H PRN PRN Reason: Nausea/Vomiting Oseltamivir Phosphate (Tamiflu) 75 mg PO BID PENDING SALE TO [facility] Stop: 01/18/19 09:01 Last Admin: 01/15/19 10:46 Dose: 75 mg Pantoprazole Sodium (Protonix) 40 mg PO DAILY PENDING SALE TO [facility] Last Admin: 01/15/19 10:46 Dose: 40 mg [Probenecid- Colchicine Tablet] 1 Tab 0 each PO BID PENDING SALE TO [facility] Sacubitril/Valsartan (Entresto 24 Mg-26 Mg Tablet) 1 tab PO BID PENDING SALE TO [facility] Last Admin: 01/15/19 10:45 Dose: 1 tab Senna/Docusate Sodium (Senokot S) 2 tab PO BIDPRN PRN PRN Reason: Constipation Sodium Chloride (Flush - Normal Saline) 10 ml IVF Q12H PRN PRN Reason: Saline Flush Sodium Chloride (Flush - Normal Saline) 10 ml IVF PRN PRN PRN Reason: Saline Flush Torsemide (Demadex) 20 mg PO DAILY PENDING SALE TO [facility] Last Admin: 01/15/19 10:45 Dose: 20 mg Zolpidem Tartrate (Ambien) 10 mg PO HSPRN PRN PRN Reason: SLEEP Vital Signs & Weight: Vital Signs Temp Pulse Resp BP BP Pulse Ox 01/15/19 16:35 97.3 F L 71 18 99/67 94 L 01/15/19 12:00 62 16 106/70 95 01/15/19 07:25 97.4 F L 61 16 115/77 94 L Admit Weight 194 lb 8 oz Weight 194 lb 8 oz - Physical Exam General: alert & oriented x3 HEENT: mucus membranes moist Neck: supple neck Cardiac: irregularly regular Lungs: normal breath sounds Neuro: grossly intact Abdomen: active bowel sounds Extremities: no edema Skin: clear Musculoskeletal: no pain - Labs Result Diagrams: 01/15/19 04:33 01/15/19 04:33 Troponin/CKMB CK-MB (CK-2) 2.9 ng/mL (0-6.6) 01/13/19 09:01 Troponin I 0.271 ng/mL (< 0.028) H 01/13/19 14:31 - Telemetry Supraventricular conduction: atrial fibrillation - Assessment/Plan Assessment/Plan: 1. NSTEMI 2. Chest pain 3. Chronic afib, rate controlled. 4. Positive Flu nasal swab but negative PCR. PLAN: - I do not think he has the flu as his PCR is negative for all flu sub types. - Plan on proceeding with [facility] tomorrow likely close to noon. - We spoke about risk s and benefits and he agrees to proceed.
[2019-01-15] MEDS: Atorvastatin Calcium 40 MG TAB PO SCH (20:14)
[2019-01-16] MEDS: Lactated Ringer's 1,000 ML IV SCH (00:30)
[2019-01-16] MEDS ORDERED: predniSONE 50 MG TAB PO SCH ×2 (01:30→07:00)
[2019-01-16 04:58] LABS: #Eosinphils 0.2 thou/uL (0.0-0.7); #Monocytes 0.5 thou/uL (0.11-0.59); #Neutrophils 6.2 thou/uL (1.40-6.50); %Eosinophils 2.6 % (0.0-10.0); %Lymphocytes 22.4 % (21.0-51.0); %Monocytes 5.2 % (0.0-10.0); %Neutrophils 69.9 % (42.0-75.0); Hemoglobin 14.7 g/dL (14.0-18.0); Mean Corpuscular HGB CONC 33.1 g/dL (32.0-36.0); Mean Corpuscular Hemoglobin 34.1 pg (27.0-31.0); Platelet Count 168 thou/uL (130-400); RBC Distribution Width 14.7 % (11.5-14.5); White Blood Cell (WBC) Count 8.9 thou/uL (4.8-10.8)
[2019-01-16 05:11] LABS: ALT (SGPT) 36 U/L (8-55); AST (SGOT) 50 U/L (5-34); Albumin 3.4 g/dL (3.5-5.0); Alkaline Phosphatase 115 U/L (40-110); Anion Gap 15 mmol/L (10-20); BUN (Urea Nitrogen) 29 mg/dL (8.4-25.7); Bilirubin, Total 2.9 mg/dL (0.2-1.2); Calc. Creatinine Clearance 74 mL/min (70-130); Calcium 10.1 mg/dL (7.8-10.44); Carbon Dioxide 30 mmol/L (22-29); Chloride 94 mmol/L (98-107); Estimated GFR-MDRD 66; Globulin 4.4 g/dL (2.4-3.5); Glucose 117 mg/dL (70-105); Potassium 3.5 mmol/L (3.5-5.1); Protein, Total 7.8 g/dL (6.0-8.3); Sodium 135 mmol/L (136-145)
[2019-01-16] MEDS ORDERED: Sodium Chloride 0.9% 1,000 ML IV SCH (06:00)
[2019-01-16] MEDS ORDERED: diphenhydrAMINE 25 MG CAP PO SCH (06:00)
[2019-01-16] MEDS: Amiodarone 200 MG TAB PO SCH (06:01)
[2019-01-16] MEDS: Oseltamivir 75 MG CAP PO SCH (06:01)
[2019-01-16] MEDS: Ferrous Sulfate 325 MG TAB PO SCH (06:01)
[2019-01-16] MEDS: Aspirin 81 mg Enteric Coated Tablet PO SCH (06:01)
[2019-01-16] MEDS: Carvedilol 3.125 MG TAB PO SCH (06:01)
[2019-01-16] MEDS: Magnesium Oxide 400 MG TAB PO SCH (06:01)
--- NOTE | 2019-01-16 06:11 | PDOC.FM ---
- Subjective Subjective: Patient has no complaints this morning. He is going back for cardiac cath this morning with Dr. Cuevas. - Objective MAR Reviewed: Yes Vital Signs & Weight: Vital Signs (12 hours) Temp Pulse Resp BP Pulse Ox 01/16/19 04:00 98.2 F 72 18 112/70 93 L 01/15/19 20:13 97.6 F 01/15/19 20:10 71 16 124/69 96 Weight Admit Weight 88.224 kg Weight 88.224 kg I&O: 01/14/19 01/15/19 01/16/19 06:59 06:59 06:59 Intake Total 3595 1920 Output Total 5500 0 Balance -1905 -130 Result Diagrams: 01/16/19 04:38 01/16/19 04:38 Phys Exam - Physical Examination Constitutional: NAD HEENT: moist MMs, sclera anicteric Neck: supple, full ROM Respiratory: no wheezing, clear to auscultation bilateral Cardiovascular: RRR, no significant murmur Gastrointestinal: no distention, positive bowel sounds Musculoskeletal: no edema Neurological: normal sensation, moves all 4 limbs Psychiatric: normal affect, A&O x 3 Skin: no rash, normal turgor Dx/Plan (1) Macrocytic anemia Code(s): D53.9 - NUTRITIONAL ANEMIA, UNSPECIFIED Status: Acute (2) Hyperbilirubinemia Code(s): E80.6 - OTHER DISORDERS OF BILIRUBIN METABOLISM Status: Acute (3) JOSE A (acute kidney injury) Code(s): N17.9 - ACUTE KIDNEY FAILURE, UNSPECIFIED Status: Acute (4) Chest pain Code(s): R07.9 - CHEST PAIN, UNSPECIFIED Status: Acute Qualifiers: Chest pain type: other chest pain Qualified Code(s): R07.89 - Other chest pain; R07.8 - Other chest pain (5) GERD (gastroesophageal reflux disease) Code(s): K21.9 - GASTRO-ESOPHAGEAL REFLUX DISEASE WITHOUT ESOPHAGITIS Status: Acute Qualifiers: Esophagitis presence: without esophagitis Qualified Code(s): K21.9 - Gastro -esophageal reflux disease without esophagitis (6) Chronic atrial fibrillation Code(s): I48.2 - CHRONIC ATRIAL FIBRILLATION * DO NOT USE * Status: Chronic - Plan Plan: Patient is a 58 yo male who presents with weakness, SOB, and chest tightness is admitted for JOSE A and Hyperbilirubinemia #JOSE A -Cr 1.93, baseline Cr of 1.0 in early Nov 2018 -start maintenance IVF LR @ 125 ml/hr--patient does not appear to have CHF exac at this time -monitor AM CMP -Cr down to 1.35 today (01/15) #Atypical Chest Pain-> NSTEMI -trops 0.288 > 0.306 > 0.271 -CXR shows bilateral small pleural effusions, cardiomegaly, and pulmonary congestion--patient appears euvolemic, no signs of fluid overload on exam -given IV Lasix 20 in ED, continue home Lasix 80 mg PO BID -continue home Torsemide, consider increasing dosing if appears to have increasing fluid overload, currently stable -BNP 1614 > 1287 -Consult Cardiology, Dr. Cuevas, appreciate recs--on 12/01/18 visit it appears the patient had fixed defects on his stress test, at that time Dr. Ornelas recommended cardiac cath performed as outpatient but patient never followed up with Cardiology for this. Will hold Eliquis and Aspirin in anticipation of cardiac cath to be completed on morning (after 4 missed doses of Eliquis). -Cardiac cath today (01/16) #Influenza -Influenza screen positive for types A&B, will start Tamiflu since sx within 48 hour window (01/13 until 01/18, 10 doses) -although A&B positive is rare, patient on admission symptomatic with flu-like symptoms -RVP negative #Hyperbilirubinemia; #Abdominal Pain -TBili 5.4 (up from 3 on 01/12) and Direct Bili 3.3 on admission--TBili at 2.9 today -RUQ U/S shows gallbladder wall thickening and edema, suggestive of cholecystitis -HIDA scan performed on 01/13, patient refused during procedure before gallbladder was able to be visualized therefore unable to evaluate gallbladder EF -repeat HIDA scan on 01/15 with pre-treatment given of Ativan 1 mg IM before procedure--results normal, gallbladder EF 86% -UA neg #GERD -continue home Pantoprazole #AFib, paced -defibrillator and pacemaker placed in 2013 -currently paced at 68 bpm -EKG shows paced rhythm #Macrocytic Anemia -previously microcytic anemia -MCV 107, Hgb 13 -B12 1734 (high) and folate 11.7 (normal) -likely 2/2 EtOH abuse Diet: Heart Healthy with NPO at midnight, anticipate possible surgery VTE: SCDs, home Eliquis 5 mg daily Code: FULL PCP: Doni Dispo: Stable, admitted to inpatient on telemetry. Cardiology consulted with planned cardiac cath for tomorrow this morning, appreciate recs. Anticipate LOS >48 hours.
[2019-01-16] MEDS ORDERED: Lidocaine 1% (PF) 30 ML VIAL ONE (07:23)
[2019-01-16] MEDS ORDERED: Verapamil 5 MG/2 ML VIAL ONE (07:29)
[2019-01-16] MEDS ORDERED: Heparin 10,000 UNITS/1 ML VIAL ONE (07:29)
[2019-01-16] MEDS ORDERED: Nitroglycerin 100MG/250ML BOT 250 ML ONE (07:30)
[2019-01-16] MEDS ORDERED: Fentanyl 100 MCG/2 ML VIAL ONE (08:04)
[2019-01-16] MEDS ORDERED: Midazolam HCl 2 mg/2 ml Vial ONE (08:04)
[2019-01-16] MEDS ORDERED: Acetaminophen/Codeine 30-300mg Tablet PO PRN (08:31)
[2019-01-16] MEDS ORDERED: Sodium Chloride 0.9% 200 ML IV PRN (08:31)
[2019-01-16] MEDS ORDERED: Sodium Chloride 0.9% 250 ML IV SCH (08:45)
[2019-01-16] MEDS ORDERED: Iopamidol 370 76% 100 ML VIAL ONE (10:51)
[2019-01-16] MEDS: Furosemide 80 MG TAB PO SCH (10:58)
[2019-01-16] MEDS: Torsemide 20 MG TAB PO SCH (10:58)
[2019-01-16 11:24] LABS: Amphetamine Not Detected (NotDetected); Barbiturates Screen Not Detected (NotDetected); Benzodiazepine Screen Detected (NotDetected); Cocaine Metabolite Screen Not Detected (NotDetected); Medtox Control Line Valid? VALID (VALID); Medtox Reader # READER 1; Methadone Not Detected (NotDetected); Methamphetamine Not Detected (NotDetected); Opiate Screen Not Detected (NotDetected); Oxycodone Screen Not Detected (NotDetected); Phencyclidine (PCP) Not Detected (NotDetected); THC/Cannabinoid Screen Not Detected (NotDetected); Tricyclic Screen Not Detected (NotDetected)
--- NOTE | 2019-01-16 11:43 | PRG ---
DATE OF SERVICE: 01/16/2019 Mr. Aldrich just returned from his heart catheterization and looks and feels fine. The results of the catheterization are still pending. His HIDA scan was negative for acute cholecystitis. Depending on results of his cardiac cath, he can likely be discharged later this afternoon as he was laid flat for 6 hours. Job ID: [id number]
[2019-01-16 14:15] VITALS: BMI 24.8
[2019-01-16 16:24] VITALS: BP 108/65; TEMP 97.2
--- NOTE | 2019-01-17 04:21 | DIS ---
DATE OF ADMISSION: 01/13/2019 DATE OF DISCHARGE: 01/16/2019 RESIDENT: Madonna Cook DO ADMITTING ATTENDING: Howie Truong MD DISCHARGE ATTENDING: Howie Truong MD CONSULTS: 1. Cardiology, Dexter Cuevas MD. 2. Cardiac rehab outpatient. 3. Cardiovascular Team. 4. Heart Failure Clinic. PROCEDURES PERFORMED: 1. Chest x-ray on January 13, 2019: Small pleural effusions, cardiomegaly, and mild pulmonary venous congestion. 2. Abdomen ultrasound on January 13, 2019: Abnormal gallbladder wall thickening and edema. Recommend clinical correlation to exclude evidence of cholecystitis. No associated shadowing cholelithiasis. Normal sized common duct at 5 mm. Pulsatility irregular waveform of the imaged portal vein. This is nonspecific, although could relate to entities such as right heart strain or heart failure. Correlate clinically. 3. HIDA scan on January 13, 2019: Inconclusive due to patient's refusal to complete exam. 4. HIDA scan on January 15, 2019: Normal exam with gallbladder ejection fraction of 86%. 5. Cardiac cath by Dr. Cuevas on January 16, 2019: Mild coronary artery disease. Normal left ventricular end-diastolic pressure. No LV to aortic gradient. Recommendation to continue medical therapy for nonischemic cardiomyopathy. PRIMARY DIAGNOSES: 1. Hbq-LW-fihkplwji myocardial infarction. 2. Acute kidney injury. SECONDARY DIAGNOSES: 1. Atypical chest pain. 2. Influenza, positive for type A and B. 3. Hyperbilirubinemia. 4. Abdominal pain. 5. History of gastroesophageal reflux disease. 6. Chronic atrial fibrillation with AICD placement in 2013. 7. Macrocytic anemia, chronic. DISCHARGE MEDICATIONS: 1. Tamiflu 75 mg p.o. b.i.d. x4 more doses. 2. Aspirin 81 mg p.o. daily. 3. Zolpidem (Ambien) 10 mg p.o. at bedtime p.r.n. 4. Carvedilol (Coreg) 3.125 mg p.o. b.i.d. 5. Entresto 24/26 mg, one tablet p.o. b.i.d. 6. Apixaban (Eliquis) 5 mg p.o. b.i.d. 7. Torsemide 20 mg p.o. daily. 8. Amiodarone 200 mg p.o. daily. 9. Breo Ellipta one puff inhaled p.r.n. 10. Iron (Feosol) 325 mg p.o. daily. 11. Naproxen 500 mg p.o. p.r.n. for pain. 12. Furosemide 80 mg p.o. b.i.d. 13. Metolazone 5 mg p.o. p.r.n. 14. Probenecid/colchicine one tab p.o. b.i.d. 15. Dexilant 60 mg p.o. daily. 16. [place] 10/325 one to two tablets p.o. p.r.n. for pain. 17. Flexeril 10 mg p.o. p.r.n. 18. Atorvastatin calcium 80 mg p.o. daily. 19. Magnesium 200 mg p.o. daily. DISCONTINUED MEDICATIONS: None. HISTORY OF PRESENT ILLNESS/HOSPITAL COURSE: The patient is a 58-year-old male, who presents with complaints of weakness and shortness of breath that started the previous day. He was seen in the emergency room the previous day and was found to have congestive heart failure on chest x-ray. At that time, he was determined to be at baseline and he was sent home. The patient states that he woke up earlier this morning with additional abdominal pain, chest tightness and increased shortness of breath, which prompted him to return to the emergency department. He endorsed chills for the past 2 days, but had not taken his temperature. He also reports nausea for the past 3 days and vomited once earlier this morning. His last bowel movement about 1 hour ago was described as loose, watery, and yellow in color. Previous BMs to this one have been dark brown. The patient is known to [facility] and has at home visits two times weekly. The patient's nurse, who performs the home visits was present in the exam room during this history and physical exam. She relates that the patient was in a similar condition when she visited him on Sunday, but newly complains of weakness and achiness. In the emergency department, the patient was found to have a BNP of 1287. A chest x-ray was performed concerning for CHF. The patient was given IV Lasix 20 mg x1 dose. His troponins were 0.288 to 0.30 to 0.271. The patient's total bilirubin was 5.4 ( up from 3 the day before). Direct bilirubin was 3.3 on admission. Right upper quadrant ultrasound was ordered, which showed questionable evidence for cholecystitis, was recommended clinical correlation. An influenza screen was performed, which tested positive for both type A and B. The patient was admitted to inpatient on the telemetry unit for further evaluation and workup. Ultimately, cholecystitis was ruled out given the normal HIDA scan. The patient's symptoms also continued to improve throughout his stay and he was asymptomatic for the last 2 days of his admission. Upon admission to the floor, further workup was ordered. A HIDA scan was ordered and performed on January 13, 2019, to further evaluate the possibility of cholecystitis. During this initial first HIDA scan, the patient began the exam but then refused to continue with the exam due to "anxiety." Upon starting the exam , he said he felt claustrophobic and could not handle the environment. A second HIDA scan was successfully completed on January 15, 2019, after pretreatment with Ativan 1 mg x1 dose IV. This HIDA scan result was normal. The patient's total bilirubin continued to trend down to a low of 2.9, on the morning of January 16, 2019. Upon chart review of patient's previous hospital stay, it was determined that on his admission in November of 2018, the patient was found to have fixed defects on his cardiac stress test. At that time, Dr. Ornelas recommended a cardiac cath to be performed as an outpatient. However, the patient admits that he never followed up with Cardiology to perform this. Due to the patient being on Eliquis and aspirin for anticoagulation, these medication had to be held for four missed doses before cardiac cath would be performed. Dr. Cuevas, Cardiology, was consulted. He performed the cardiac cath on January 16, 2019, and found mild CAD. He recommended continued medical management with no surgical intervention at this time. Additionally, the patient was treated for influenza which screened positive for type A and B on three separate flu swabs. However, respiratory viral panel resulted negative for influenza on day 3 of hospital admission. However, since Tamiflu had already been started, it was determined that the patient need to continue to complete the full course of Tamiflu. He was provided with a prescription for four additional doses upon discharge. This would complete a 5-day course. Although influenza A and B being both positive is rare, the patient on admission was symptomatic with flu-like symptoms. Additionally, the patient was found on lab work to have macrocytic anemia, looking back on past hospital admissions. These were similar to previous lab work. The patient had an MCV of 107 and hemoglobin of 13, this is near his baseline. Vitamin B12 level was 1734 (high) and folate level 11.7 (normal). These values are likely secondary to chronic alcohol abuse. On the afternoon of January 16, 2019, the patient was cleared by Cardiology for discharge home. The patient was overall in a stable clinical condition and was doing well. The patient was then discharged back to home with continued home health services including cardiac rehab. DISPOSITION: Stable. DISCHARGE INSTRUCTIONS: 1. Location: Home with home health services. 2. Diet: Heart healthy. 3. Activity: As tolerated. 4. Followup: Follow up with cardiac rehab within one day. Follow up with [facility] later today. Follow up with Dr. Cuevas, Cardiology, in 3 to 4 weeks. Follow up with Dr. Marion in one week for hospital followup. Follow up with LOLA Owens, in 2-3 days. Job ID: [id number] [facility] HEALTH PARTNERSShelli
--- NOTE | 2019-01-17 08:18 | PQF ---
[employer] Scaleman Crystal Reports Winform ALFREDO Varma SOCRATES KNOX [id number] [facility]-261 [id number] CLINICAL DOCUMENTATION CLARIFICATION FORM: POST DISCHARGE Addendum to original discharge summary date: ____ Late entry note date: __ DATE: 01/17/2019 ATTN:SOCRATES KNOX Please exercise your independent, professional judgment in responding to the clarification form. Clinical indicators are provided on the bottom of this form for your review Please check appropriate box(s): Conflicting documentation was noted in the Medical Record, please clarify if patient is being treated/monitored for: [ ] Chronic diastolic heart failure [ ] Acute on chronic diastolic heart failure [ ] Other diagnosis [ ] Unable to determine For continuity of documentation, please document condition throughout progress notes and discharge summary. Thank You. CLINICAL INDICATORS - SIGNS / SYMPTOMS/ LABS - Atypical Chest Pain - Cxr Shows Bilateral Small Pleural Effusions, Cardiomegaly, & Pulmonary Congestion--Patient Appears Euvolemic, No Signs Of Fluid Overload On Exam; H&P Documentation 01/13, PN 01/14 - 30 , Joey Peacock DO -Impression: Small Pleural Effusions, Cardiomegaly, & Mild Pulmonary Venous Congestion -Chest X ray 01/13 -BNP: 1287 - Laboratory, 01/13 -Acute On Chronic Systolic Hf; We Would Continue Iv Lasix To Try To Lower His Creatinine By Improving His Hemodynamics--Cardiology Consult 01/14 , Faith Renteria -Past Medical Hx: Chronic Systolic Hf; Lab Data: Bnp Was 1287, Which Is Elevated Bnp For Him--Cardiology Consult 01/14 , Cardiology Consult 01/14 , Faith Renteria RISK FACTORS -Hx Of Chronic Systolic Hf (cardiology H&P, 01/14) -Hx Of Nonischemic Cardiomyopathy (h&p 01/13, Cardiology H&P, 01/14) - BNP Over Baseline (cardiology H&P 01/14) TREATMENT -Cardiology Consult 01/14 -Given Iv Lasix 20 -H&P, 01/13, Joey DALTON
== END 2019-01-16 17:09 | disposition home or self-care (01) | DRG 193 ==
LOC: ERS 08:33 → 2NO 10:50
PROVIDERS: ADMIT Family Medicine; ATTEND Family Medicine
PROC: 4A023N7 Measurement of Cardiac Sampling and Pressure, Left Heart, Percutaneous Approach (ICD-10-PCS; principal; 2019-01-13)
PROC: B211YZZ Fluoroscopy of Multiple Coronary Arteries using Other Contrast (ICD-10-PCS; 2019-01-13)
DX: J10.1 Influenza due to other identified influenza virus with other respiratory manifestations (principal); I21.4 Non-ST elevation (NSTEMI) myocardial infarction; N17.9 Acute kidney failure, unspecified; I48.20 Chronic atrial fibrillation, unspecified; I50.22 Chronic systolic (congestive) heart failure; I13.0 Hypertensive heart and chronic kidney disease with heart failure and stage 1 through stage 4 chronic kidney disease, or unspecified chronic kidney disease; I42.8 Other cardiomyopathies; D63.8 Anemia in other chronic diseases classified elsewhere; I25.10 Atherosclerotic heart disease of native coronary artery without angina pectoris; F10.10 Alcohol abuse, uncomplicated; F14.10 Cocaine abuse, uncomplicated; F12.10 Cannabis abuse, uncomplicated; E87.5 Hyperkalemia; F17.210 Nicotine dependence, cigarettes, uncomplicated; N18.3 Chronic kidney disease, stage 3 (moderate); K21.9 Gastro-esophageal reflux disease without esophagitis; Z79.01 Long term (current) use of anticoagulants; Z95.0 Presence of cardiac pacemaker; Z86.73 Personal history of transient ischemic attack (TIA), and cerebral infarction without residual deficits; E80.6 Other disorders of bilirubin metabolism
CPT/HCPCS: 36415; 71045; 71046; 76705; 76942; 78227; 80053; 80306; 81003; 82550; 82553; 82607; 82746; 83880; 84484; 85025; 87633; 87804; 93005; 93010; 93458; 93798; 94760; 96372; 96374; 99152; 99153; 99283; A9537; C1769; J1644; J1885; J1940; J2001; J2060; J2250; J3010; J7512; Q9967

== ENCOUNTER 2019-02-12 00:05 | Inpatient (IN) | payer MEDICARE, MEDICAID ==
[2019-02-12] MEDS ORDERED: Furosemide 40 MG/4 ML VIAL ONE (00:26)
[2019-02-12 00:54] LABS: Hemoglobin 13.3 g/dL (14.0-18.0); Mean Corpuscular HGB CONC 32.1 g/dL (32.0-36.0); Mean Corpuscular Hemoglobin 33.6 pg (27.0-31.0); Mean Platelet Volume 8.8 fL (7.4-10.4); Platelet Count 112 thou/uL (130-400); RBC Distribution Width 13.9 % (11.5-14.5); Red Blood Cell (RBC) Count 3.97 mill/uL (4.70-6.10)
[2019-02-12 01:03] LABS: ALT (SGPT) 18 U/L (8-55); AST (SGOT) 23 U/L (5-34); Albumin 3.5 g/dL (3.5-5.0); Alkaline Phosphatase 124 U/L (40-110); Anion Gap 15 mmol/L (10-20); BUN (Urea Nitrogen) 18 mg/dL (8.4-25.7); Bilirubin, Total 2.1 mg/dL (0.2-1.2); Calc. Creatinine Clearance 0 mL/min (70-130); Calcium 9.7 mg/dL (7.8-10.44); Carbon Dioxide 24 mmol/L (22-29); Chloride 104 mmol/L (98-107); Estimated GFR-MDRD 61; Globulin 3.8 g/dL (2.4-3.5); Glucose 117 mg/dL (70-105); Lipase 14 U/L (8-78); Potassium 3.9 mmol/L (3.5-5.1); Protein, Total 7.3 g/dL (6.0-8.3); Sodium 139 mmol/L (136-145)
[2019-02-12 01:11] LABS: #Basophils 0.1 thou/uL (0.0-0.2); #Eosinphils 0.3 thou/uL (0.0-0.7); #Lymphocytes 2.7 thou/uL (1.20-3.40); #Neutrophils 4.9 thou/uL (1.40-6.50); %Basophils 0.9 % (0.0-1.0); %Eosinophils 3.6 % (0.0-10.0); %Lymphocytes 30.2 % (21.0-51.0); %Monocytes 10.6 % (0.0-10.0); %Neutrophils 54.6 % (42.0-75.0); Platelet Morphology Comment Appears Decreased
--- NOTE | 2019-02-12 01:21 | PDOC.FPRHP ---
- History of Present Illness Chief Complaint: SOB History of Present Illness: Mr. Aldrich is a 58yo AAM who presented to the ED for increasing shortness of breath. He has a known history of HF. He has been compliant with medications. He states that he called his nurse about his breathing and she recommended that he double his diuretic, he did and did not experience significant relief so he came to the ED. He does not follow a HF diet he states, but he does try to limit his fluid intake. He did recently change one of his diuretics to Bumex. ED Course: Lasix 40mg IV, Asa 324 - Allergies/Adverse Reactions Allergies Allergy/AdvReac Type Severity Reaction Status Date / Time iodine Allergy Mild Hives Verified 12/28/18 09:31 spironolactone Allergy Verified 12/28/18 09:31 - Home Medications Medication Instructions Recorded Confirmed Type Aspirin [Ecotrin Low Strength] 81 mg PO DAILY #0 tab 04/21/13 02/12/19 Rx Zolpidem Tartrate [Ambien] 10 mg PO HS PRN 08/20/18 02/12/19 History Apixaban [Eliquis] 5 mg PO BID #60 tab 11/05/18 02/12/19 Rx Carvedilol [Coreg] 3.125 mg PO BID #60 tab 11/05/18 02/12/19 Rx Sacubitril/Valsartan [Entresto 24 1 tab PO BID #60 tab 11/05/18 02/12/19 Rx mg-26 mg Tablet] Torsemide [Demadex] 20 mg PO DAILY #30 tab 11/05/18 02/12/19 Rx Amiodarone [Cordarone] 200 mg PO DAILY 12/01/18 02/12/19 History Atorvastatin Calcium 80 mg PO DAILY 30 Days #30 tablet 12/28/18 02/12/19 Rx Cyclobenzaprine [Flexeril] 10 mg PO PRN PRN 12/28/18 02/12/19 History Dexlansoprazole [Dexilant] 60 mg PO DAILY 12/28/18 02/12/19 History Fluticasone/Vilanterol [Breo 1 puff INH PRN PRN 12/28/18 02/12/19 History Ellipta] Furosemide [Lasix] 80 mg PO BID 12/28/18 02/12/19 History HYDROcodone/Acetaminophen 1 - 2 tab PO PRN PRN 12/28/18 02/12/19 History [Hydrocodone-Acetamin 10-325 mg] Iron,Carbonyl [Feosol] 325 mg PO DAILY 12/28/18 02/12/19 History Magnesium 200 mg PO DAILY 12/28/18 02/12/19 History Metolazone [Zaroxolyn] 5 mg PO PRN PRN 12/28/18 02/12/19 History Naproxen 500 mg PO PRN PRN 12/28/18 02/12/19 History Probenecid/Colchicine 1 tab PO BID 12/28/18 02/12/19 History [Probenecid-Colchicine Tablet] Oseltamivir [Tamiflu] 75 mg PO BID #4 cap 01/16/19 02/12/19 Rx - History PMHx: HTN, CHF, Afib with AICD, Mitral valve prolapse, Gout, Shingles, Cirrhosis 2/2 EtOH abuse, GERD, h/o Polysubstance abuse; PSHx: defibrillator with pacemaker placement in 2013, cardiac ablation FHx: Cancer (unknown types) in mother and father. HTN, DM, CAD. Social: Smokes 1/2 ppd. Admits to many years of drinking heavily but not recently. Former drug abuse of cocaine & marijuana. - Review of Systems General: reports: weight/appetite/sleep changes. denies: fever/chills Eyes: denies: eye pain, vision changes ENT: denies: nasal congestion, rhinorrhea Respiratory: reports: cough, shortness of breath, exercise intolerance. denies : congestion Cardiovascular: reports: edema, paroxysmal nocturnal dyspnea, orthopnea. denies : chest pain, palpitation Gastrointestinal: denies: nausea, vomiting, diarrhea, constipation, abdominal pain Genitourinary: reports: polyuria. denies: incontinence, dysuria Skin: denies: rashes, lesions Musculoskeletal: denies: pain, tenderness, stiffness Neurological: denies: numbness, seizure, weakness Psychological: denies: anxiety, depression - Vital signs 02/12/19 04:21 Temperature 98.3 F Pulse Rate 87 Blood Pressure 114/81 [Semi-Fowlers] Respiratory 18 Rate O2 Sat by Pulse 100 Oximetry Oxygen Flow 2 Rate Oxygen Delivery Nasal Cannula Method Laboratory Tests 02/12/19 02/12/19 00:27 00:27 Troponin I 0.268 H B-Natriuretic Peptide 1911.5 H - Physical Exam Constitutional: NAD, awake, alert and oriented -Constitutional: On BiPap HEENT: normocephalic and atraumatic, PERRLA, EOMI, grossly normal vision, grossly normal hearing, MMM Neck: supple, trachea midline Heart: RRR, normal S1/S2, no murmurs/rubs/gallops, pulses present -Heart: 1+ pitting edema to the level of his shins Lungs: no respiratory distress, good air movement -Lungs: Coarse, wet breath sounds bilaterally Abdomen: soft, non-tender, bowel sounds present Musculoskeletal: normal structure, normal tone Neurological: no focal deficit, CN II-XII intact Skin: no rash/lesions, good turgor Heme/Lymphatic: no unusual bruising or bleeding, no purpura, no petechia Psychiatric: normal mood and affect, good judgment and insight, intact recent and remote memory FMR H&P: Results - Labs Result Diagrams: 02/12/19 00:27 02/12/19 00:27 Lab results: WBC 9.0 thou/uL (4.8-10.8) 02/12/19 00:27 Hgb 13.3 g/dL (14.0-18.0) L 02/12/19 00:27 Hct 41.5 % (42.0-52.0) L 02/12/19 00:27 MCV 105.0 fL (78.0-98.0) H 02/12/19 00:27 Plt Count 112 thou/uL (130-400) L 02/12/19 00: Neutrophils % 54.6 % (42.0-75.0) 02/12/19 00:27 Sodium 139 mmol/L (136-145) 02/12/19 00:27 Potassium 3.9 mmol/L (3.5-5.1) 02/12/19 00: Chloride 104 mmol/L (98-107) 02/12/19 00: Carbon Dioxide 24 mmol/L (22-29) 02/12/19 00:27 BUN 18 mg/dL (8.4-25.7) 02/12/19 00: Creatinine 1.43 mg/dL (0.7-1.3) H 02/12/19 00:27 Glucose 117 mg/dL (70-105) H 02/12/19 00:27 Calcium 9.7 mg/dL (7.8-10.44) 02/12/19 00:27 Total Bilirubin 2.1 mg/dL (0.2-1.2) H 02/12/19 00:27 AST 23 U/L (5-34) 02/12/19 00:27 ALT 18 U/L (8-55) 02/12/19 00:27 Alkaline Phosphatase 124 U/L (40-110) H 02/12/19 00:27 Serum Total Protein 7.3 g/dL (6.0-8.3) 02/12/19 00:27 Albumin 3.5 g/dL (3.5-5.0) 02/12/19 00:27 Lipase 14 U/L (8-78) 02/12/19 00:27 FMR H&P: A/P - Problem List (1) GERD (gastroesophageal reflux disease) Current Visit: No Status: Chronic Code(s): K21.9 - GASTRO-ESOPHAGEAL REFLUX DISEASE WITHOUT ESOPHAGITIS Qualifiers: Esophagitis presence: without esophagitis Qualified Code(s): K21.9 - Gastro -esophageal reflux disease without esophagitis (2) Macrocytic anemia Current Visit: No Status: Acute Code(s): D53.9 - NUTRITIONAL ANEMIA, UNSPECIFIED (3) Chronic systolic (congestive) heart failure Current Visit: No Status: Chronic Code(s): I50.22 - CHRONIC SYSTOLIC ( CONGESTIVE) HEART FAILURE Comment: ACC/AHA stage C (4) Elevated troponin Current Visit: No Status: Acute Code(s): R74.8 - ABNORMAL LEVELS OF OTHER SERUM ENZYMES - Plan HFrEF - EF 08/2018 15-20% - Cath 12/2018 - non ischemic cardiomyopathy, continue medical management. - BNP 1911.5 today. - s/p 40 IV lasix in ER. Will give 40 IV lasix BID until euvolemic. - weaned off BiPap in ER. Will admit to telemetry HTN - currently normotensive. - will restart home medications when necessary. - will restart coreg now Chronic A-Fib w/ AICD pacer - continue Eliquis and Amiodarone H/o Gout - continue preventive probenecid/colchicine Cirrhosis - aware, not currently on medication GERD - Dexilant, continue home med HLD - continue statin Disposition/LOS: Dispo: stable Code: full VTE: Felicia FMR H&P: Upper Level - Plan Date/Time: 02/12/19 0120 PCP: Doni HPI: This is a 58 yo male well known to the service. He comes in with 1 week of increasing SOB. He states he has gained 10 lbs in the last week or so. He has non-productive cough. Denies fevers, chills, sweats. Denies chest pain or palpitations. He states he does not follow his HF diet, he does try to limit his fluid intake but doesnt know his target. The patient recently had a cath on 01/16/19 which showed non-ischemic cardiomyopathy. The patients breathlessness initially required bipap but he was able to be weaned to NC in the ED after IV Lasix. Pertinent PMHx CHF, CAD, A Fib, Hx of CVA, Gout, AICD Hx of heavy alcohol abuse REVIEW OF SYSTEMS: Gen: no fever, chills, or sweats Neuro: denies headache Eyes: no visual changes ENT: no hearing changes, no sore throat, no congestion Resp: see hpi Card: denies murmurs, rubs, gallups GI: no N/V/D, no abdominal pain Skin: no rash, no erythema PHYSICAL EXAMINATION: General: NAD, alert and oriented x3 HEENT: PERRLA, EOMI, normal sclera, oropharynx without erythema or exudate Neck: Supple. Full ROM. Heart/Cardiovascular System: cap refill <3, irregularly irregular rhythm Lungs/Respiratory System: coarse breath sounds throughout, mild decreased sounds at the bases, able to speak in phrases Abdomen/Gastro-Intestinal System: no abdominal tenderness, normal bowel sounds Extremities: Warm extremities. +1 edema bilaterally Neuro: No gross deficits appreciated. CN 2-12 grossly intact Psychiatry: Awake, Alert and cooperative with exam Skin: No lesions, rashes, or ulcers Musculoskeletal: Full ROM A/P: # Acute on chronic CHF exacerbation - 90kg today, discharged around 80kg on 01/16/19 - BNP 1900, baseline 1000 - Trop trended down, EKG shows paced rhythm - Cath 01/16/19 showed non-ischemic cardiomyopathy - Lasix 40mg BID, strict I/Os, home metolazone # CKD3 - Cr 1.43, baseline # A fib w/ pacemaker - Home matthew duarteo # Cirrhosis, Alc Abuse, hx of polysubstance abuse - ase Fluids: tko Code status: full PPx: felicia Dispo: >2 midnights Addendum - Attending - Attending Attestation Date/Time: 02/12/19 1242 I personally evaluated the patient and discussed the management with Dr. Knox on 02/12/2019 I agree with the History, Examination, Assessment and Plan documented above with any addition or exceptions noted below - 58yo AAM with h/o HTN, HFrEF, A- fib, gout, cirrhosis who presented to the ED for increasing shortness of breath. He has been compliant with medications. He states that he called his nurse about his breathing and she recommended that he double his diuretic, he did and did not experience significant relief so he came to the ED. He does not follow a HF diet he states, but he does try to limit his fluid intake. He did recently change one of his diuretics to Bumex. PMH/PSH/Meds/SH reviewed and agree with resident's documentation. Afebrile P75 BP 134/86 99% Exam repeated by me and agree with resident's findings. Labs: H/H=13.3/41.5, Jp=402, K=3.9, Cl =104, CO2=24, BUN/Cr=18/1.43, Ejvl=463, YSR=9644, trop I=0.268. A/P: 1) Acute on chronic CHF (with reduced EF) - Has started to diuresis in ER after lasox and is feeling better; will attempt to wean off BiPap in ER and transfer to tele if able to maintain O2 sats and no resp distress. Will review recent changes to medication regimen in morning and adjust as indicated. 2) HTN- well controlled. .
[2019-02-12 01:23] LABS: CKMB 3.1 ng/mL (0-6.6)
[2019-02-12] MEDS ORDERED: Aspirin Chewable 81 MG TAB ONE (01:47)
[2019-02-12 03:49] LABS: Troponin I 0.221 ng/mL (< 0.028)
[2019-02-12] MEDS ORDERED: Naproxen 500 MG TAB PO PRN (05:18)
[2019-02-12] MEDS ORDERED: Metolazone 5 MG TAB PO PRN (05:18)
--- NOTE | 2019-02-12 06:03 | PDOC.FM ---
- Subjective Subjective: Mr. Aldrich walking the hallways this morning, off O2, sipping coffee. Upon re-evaluation he was on O2 in room stating his SOB is better than upon admission, butnot back to his baseline. Pt has noticed increased fullness in his abdomen. C/o upper back pain in between shoulder blades. - Objective MAR Reviewed: Yes Vital Signs & Weight: Vital Signs (12 hours) Temp Pulse Resp BP Pulse Ox 02/12/19 04:33 100 02/12/19 04:21 98.3 F 87 18 114/81 100 Weight Weight 91.444 kg Result Diagrams: 02/12/19 00:27 02/12/19 00:27 Phys Exam - Physical Examination Constitutional: NAD HEENT: moist MMs Scleral icterus Neck: no nodes, supple, full ROM + JVD to jaw line, with + hepatojugular reflex. Bibasilar crackles, with expiratory wheezing present in all lung arceo. Cardiovascular: RRR, no rub distant hear sounds. Gastrointestinal: soft, non-tender, positive bowel sounds distended, but not tense. Musculoskeletal: pulses present, edema present (trace BLE pitting edema. ) Neurological: non-focal, normal sensation, moves all 4 limbs Psychiatric: normal affect, A&O x 3 Skin: no rash, normal turgor, cap refill <2 seconds Dx/Plan (1) Acute exacerbation of CHF (congestive heart failure) Code(s): I50.9 - HEART FAILURE, UNSPECIFIED Status: Acute Qualifiers: Heart failure type: systolic Qualified Code(s): I50.23 - Acute on chronic systolic (congestive) heart failure (2) Elevated troponin Code(s): R74.8 - ABNORMAL LEVELS OF OTHER SERUM ENZYMES Status: Acute (3) Chronic systolic (congestive) heart failure Code(s): I50.22 - CHRONIC SYSTOLIC (CONGESTIVE) HEART FAILURE Status: Chronic (4) Alcoholic cirrhosis of liver Code(s): K70.30 - ALCOHOLIC CIRRHOSIS OF LIVER WITHOUT ASCITES Status: Chronic (5) GERD (gastroesophageal reflux disease) Code(s): K21.9 - GASTRO-ESOPHAGEAL REFLUX DISEASE WITHOUT ESOPHAGITIS Status: Chronic Qualifiers: Esophagitis presence: without esophagitis Qualified Code(s): K21.9 - Gastro -esophageal reflux disease without esophagitis (6) CKD (chronic kidney disease) stage 3, GFR 30-59 ml/min Status: Chronic (7) Gout Code(s): M10.9 - GOUT, UNSPECIFIED Status: Chronic (8) Hypertension Code(s): I10 - ESSENTIAL (PRIMARY) HYPERTENSION Status: Chronic Qualifiers: Hypertension type: essential hypertension Qualified Code(s): I10 - Essential (primary) hypertension (9) Nonischemic cardiomyopathy Code(s): I42.9 - CARDIOMYOPATHY, UNSPECIFIED Status: Chronic - Plan Plan: 1. HFrEF, Acute CHF Exacerbation. - EF 08/2018 15-20% - Cath 12/2018 - non ischemic cardiomyopathy, continue medical management. - BNP 1911.5 today. - s/p 40 IV lasix in ER. Will give 40 IV lasix BID until euvolemic. - weaned off BiPap in ER. Will admit to telemetry 2. Elevated Troponin levels, indeterminate. - Trop 0.268--> 0.221 - Will trend - Possibly 2/2 volume overload. 2. HTN - currently normotensive. - will restart home medications when necessary. - will restart coreg now 3. Chronic A-Fib w/ AICD pacer - continue Eliquis and Amiodarone 4. H/o Gout - continue preventive probenecid/colchicine 5. Cirrhosis - pt aware of dx, not currently on medication 6. GERD - Dexilant, continue home med 7. HLD - continue statin Disposition/LOS: Dispo: stable Code: full VTE: Josseline Addendum - Attending - Attending Attestation Date/Time: 02/12/19 8552 I personally evaluated the patient and discussed the management with Dr. Alonso. I agree with the History, Examination, Assessment and Plan documented above with any addition or exceptions noted below. Patient here for suspected CHF exacerbation. He had recent echo that showed poor EF. Will work on diuresis today. He is now off O2 and ambulating well. Continue to monitor strict I/O. Renal function at baseline.
[2019-02-12] MEDS: Furosemide 40 MG/4 ML VIAL SLOW IVP SCH ×2 (06:36→15:05)
[2019-02-12 07:07] LABS: Troponin I 0.236 ng/mL (< 0.028)
--- NOTE | 2019-02-12 08:23 | RAD ---
CHEST 1 VIEW: INDICATION: Shortness of breath. COMPARISON: Prior arteriovenous malformation of 01/05/2019. FINDINGS: There is cardiomegaly with mild pulmonary vascular congestion. No consolidation, pleural effusion, o r pneumothorax evident. AICD is unchanged. No acute osseous abnormality is evident. IMPRESSION: Cardiomegaly with pulmonary vascular congestion. POS: BH
[2019-02-12] MEDS ORDERED: PROBENECID PO SCH (09:00)
[2019-02-12] MEDS ORDERED: COLCHICINE PO SCH (09:00)
[2019-02-12] MEDS: Amiodarone 200 MG TAB PO SCH (09:01)
[2019-02-12] MEDS: Atorvastatin Calcium 40 MG TAB PO SCH (09:01)
[2019-02-12] MEDS: Magnesium Oxide 400 MG TAB PO SCH (09:01)
[2019-02-12] MEDS: Aspirin 81 mg Enteric Coated Tablet PO SCH (09:01)
[2019-02-12] MEDS: Apixaban 5 MG TAB PO SCH ×2 (09:01→20:11)
[2019-02-12] MEDS: Ferrous Sulfate 325 MG TAB PO SCH (09:01)
[2019-02-12] MEDS: Carvedilol 3.125 MG TAB PO SCH ×2 (09:02→20:11)
[2019-02-12] MEDS ORDERED: Lidocaine 2% Viscous Solution 20 ML, Aluminum & Magnesium Hydroxide 30 ML, Donnatal Eli... SSW SCH (23:15)
[2019-02-12] MEDS ORDERED: diphenhydrAMINE 25 MG CAP PO SCH (23:15)
[2019-02-13 05:15] LABS: Hemoglobin 13.5 g/dL (14.0-18.0); Mean Corpuscular HGB CONC 32.3 g/dL (32.0-36.0); Mean Corpuscular Hemoglobin 33.7 pg (27.0-31.0); Mean Platelet Volume 9.3 fL (7.4-10.4); Platelet Count 102 thou/uL (130-400); RBC Distribution Width 13.9 % (11.5-14.5); White Blood Cell (WBC) Count 8.6 thou/uL (4.8-10.8)
[2019-02-13 05:24] LABS: Anion Gap 11 mmol/L (10-20); BUN (Urea Nitrogen) 22 mg/dL (8.4-25.7); Calc. Creatinine Clearance 62 mL/min (70-130); Calcium 9.8 mg/dL (7.8-10.44); Carbon Dioxide 32 mmol/L (22-29); Chloride 99 mmol/L (98-107); Estimated GFR-MDRD 51; Glucose 96 mg/dL (70-105); Potassium 3.8 mmol/L (3.5-5.1); Sodium 138 mmol/L (136-145)
[2019-02-13] MEDS: Furosemide 40 MG/4 ML VIAL SLOW IVP SCH ×2 (05:40→14:27)
--- NOTE | 2019-02-13 05:48 | PDOC.FM ---
- Subjective Subjective: Assessed Mr. Aldrich this AM and he was writhing in his chair complaining of midepigastric pain and desiring to sleep. Has had BM overnight. Denies bloating and belching. Says he has not slept in 4 days. Pain not associated w/ eating: does not worsen nor improve w/ eating. Pain is intermittent. The GI cocktail and benadryl last night helped w/ the pain. Pt had a cigarette this AM. Per nursing, urine output overnight was decreased: 175 mL overnight and appeared dark. Pt reports his urine smells bad. Pt very distressed and worried he can't breathe today. Told pt to get back into the bed: reweighed pt and he is 92.72 kg (admission was 91.44kg, +1.28 kg). Instructed pt to breathe deep and relax which helped his pain. Nurse instructed to give metolazone which is PRN since pt has leg edema 3+. Ordered UA. Restarted home entresto. Will order nicotine patch. Instructed pt not to smoke as this could be contributing to a gastritis possibly. Pt has pantoprazole ordered. He takes home dexilant for GERD. - Objective MAR Reviewed: Yes Vital Signs & Weight: Vital Signs (12 hours) Temp Pulse Resp BP BP Pulse Ox 02/13/19 03:18 96.6 F L 50 L 18 125/84 98 02/12/19 20:00 98.2 F 85 16 111/79 99 Weight Weight 91.444 kg I&O: 02/11/19 02/12/19 02/13/19 06:59 06:59 06:59 Intake Total 960 Output Total 1150 Balance -190 Result Diagrams: 02/13/19 04:14 02/13/19 04:14 Phys Exam - Physical Examination Acute distress and writhing in pain, labored breathing likely from distress dry mucous membranes Respiratory: no wheezing (not tachypneic), clear to auscultation bilateral Cardiovascular: RRR, no significant murmur Gastrointestinal: soft (no guarding, no rebound tenderness), no distention mod. TTP over epigastric area, hypoactive bowel sounds Musculoskeletal: pulses present, edema present (3+ pitting over LE b/l up to knees) Neurological: non-focal, moves all 4 limbs Psychiatric: A&O x 3 Dx/Plan (1) Acute exacerbation of CHF (congestive heart failure) Code(s): I50.9 - HEART FAILURE, UNSPECIFIED Status: Acute Qualifiers: Heart failure type: systolic Qualified Code(s): I50.23 - Acute on chronic systolic (congestive) heart failure (2) Elevated troponin Code(s): R74.8 - ABNORMAL LEVELS OF OTHER SERUM ENZYMES Status: Acute (3) Macrocytic anemia Code(s): D53.9 - NUTRITIONAL ANEMIA, UNSPECIFIED Status: Chronic (4) CKD (chronic kidney disease) stage 3, GFR 30-59 ml/min Status: Chronic - Plan Plan: 58-yo male admitted for: HFrEF, Acute CHF Exacerbation. - EF 08/2018 15-20% - Cath 12/2018 - non ischemic cardiomyopathy, continue medical management. - BNP 1911.5. Repeat today ~1300. - 40 IV lasix BID until euvolemic. Takes 80mg PO at home. - Restarted pt's home Entresto - Ordered one dose Metolazone today for LE edema - Continue diuresis and monitoring of electrolytes. Likely will develop contraction alkalosis and may need diamox. - UA pending. Continue strict I/Os and fluid restriction of 1200. - Daily weights. Pt is increased 1.28 kg since admission. - weaned off BiPap. On telemetry. - HF coordinator seeing pt and reports noncompliance w/ home meds and fluid restriction. Elevated Troponin levels, indeterminate. HTN - currently normotensive. - home medications, coreg Chronic A-Fib w/ AICD pacer - continue Eliquis and Amiodarone H/o Gout - hold probenecid/colchicine for now due to kidney function. - this is a home med pt may take if kidney fxn improves. Cirrhosis - pt aware of dx, not currently on medication Macrocytic anemia, chronic Thrombocytopenia, sub-acute - continue to monitor, MCV has been chronically elevated. - pt has history of alcohol abuse. Told me today his last drink was 3 weeks ago. - thrombocytopenia likely 2/2 to cirrhosis. - B12 high 1 month ago, folate was normal. GERD - Dexilant is a home med - pt is getting protonix daily here. - held naproxen for pain, pt may have tylenol for now. HLD - continue statin Tobacco abuse - prescribed nicotine patch today. Advised pt not to go outside and smoke as this may be exacerbating his GERD. Subclinical hypothyroidism - per chart review, TSH low and free T4/T3 normal in 08/2018 Disposition/LOS: continue to monitor on telemetry today. Dispo: stable Code: full VTE: Josseline Addendum - Attending - Attending Attestation Date/Time: 02/13/19 5443 I personally evaluated the patient and discussed the management with Dr. Landeros. I agree with the History, Examination, Assessment and Plan documented above with any addition or exceptions noted below. Patient here for CHF exacerbation. He is doing well from that standpoint, however he needs continued diuresis. Renal function with some uptrend, continue to monitor. He has new onset severe midepigastric pain, volume overload versus gastritis versus pancreatitis. Will check labs and reassess. Imaging as needed .
[2019-02-13 06:00] VITALS: BMI 28.6
[2019-02-13] MEDS: Magnesium Oxide 400 MG TAB PO SCH (08:03)
[2019-02-13] MEDS: Amiodarone 200 MG TAB PO SCH (08:03)
[2019-02-13] MEDS: Atorvastatin Calcium 40 MG TAB PO SCH (08:03)
[2019-02-13] MEDS: Carvedilol 3.125 MG TAB PO SCH ×2 (08:03→20:18)
[2019-02-13] MEDS: Apixaban 5 MG TAB PO SCH ×2 (08:03→20:18)
[2019-02-13] MEDS: Ferrous Sulfate 325 MG TAB PO SCH (08:03)
[2019-02-13] MEDS: Acetaminophen 325 MG TAB PO PRN ×3 (08:04→20:20)
[2019-02-13] MEDS: Aspirin 81 mg Enteric Coated Tablet PO SCH (08:04)
[2019-02-13] MEDS: Nicotine 14 MG PATCH TD SCH (10:25)
[2019-02-13 11:13] LABS: Bacteria/HPF None Seen HPF (None Seen); Bilirubin Negative (Negative); Blood, Urine Negative (Negative); Clarity Clear (Clear); Glucose, Urine (Dipstick) Normal (Negative); Leukocyte Negative Leu/uL (Negative); Nitrite Negative (Negative); Protein, Urine (Dipstick) Negative (Neg-Trace); RBC/HPF 0-3 HPF (0-3); Squamous Epithelial 0-3 HPF (0-3); WBC/HPF 0-3 HPF (0-3)
[2019-02-13] MEDS: Sucralfate 1 GM TAB PO SCH ×3 (11:50→20:18)
[2019-02-14 04:14] LABS: Hemoglobin 14.1 g/dL (14.0-18.0); Mean Corpuscular HGB CONC 32.2 g/dL (32.0-36.0); Mean Corpuscular Hemoglobin 33.6 pg (27.0-31.0); Mean Platelet Volume 9.6 fL (7.4-10.4); Platelet Count 105 thou/uL (130-400); Red Blood Cell (RBC) Count 4.19 mill/uL (4.70-6.10); White Blood Cell (WBC) Count 7.9 thou/uL (4.8-10.8)
[2019-02-14 04:39] LABS: Anion Gap 12 mmol/L (10-20); BUN (Urea Nitrogen) 27 mg/dL (8.4-25.7); Calc. Creatinine Clearance 52 mL/min (70-130); Calcium 10.2 mg/dL (7.8-10.44); Carbon Dioxide 31 mmol/L (22-29); Chloride 99 mmol/L (98-107); Estimated GFR-MDRD 42; Glucose 115 mg/dL (70-105); Potassium 3.6 mmol/L (3.5-5.1); Sodium 138 mmol/L (136-145)
[2019-02-14] MEDS: Furosemide 40 MG/4 ML VIAL SLOW IVP SCH ×2 (05:42→13:31)
--- NOTE | 2019-02-14 06:22 | PDOC.FM ---
- Subjective Subjective: Pt reports his abdominal pain is improved from yesterday. He is eating breakfast. Says his abdomen still feels overloaded and tight. He is tachypneic at times. Currently on room air. Still feels like the "fluid is still there." - Objective MAR Reviewed: Yes Vital Signs & Weight: Vital Signs (12 hours) Temp Pulse Resp BP Pulse Ox 02/14/19 04:20 97 F L 75 23 H 113/80 96 02/14/19 00:00 96 02/13/19 20:00 95 Weight Weight 93.213 kg I&O: 02/12/19 02/13/19 02/14/19 06:59 06:59 06:59 Intake Total 1210 720 Output Total 1325 1000 Balance -115 -280 Result Diagrams: 02/14/19 03:44 02/14/19 03:44 Phys Exam - Physical Examination Constitutional: NAD Respiratory: no wheezing (coarse sounds referred from upper airway), clear to auscultation bilateral Cardiovascular: RRR, no significant murmur Gastrointestinal: positive bowel sounds soft, moderately distended and tympanitic, mildly TTP over epigastrium Musculoskeletal: edema present (2+ in LE, improved from yesterday) Neurological: moves all 4 limbs Psychiatric: A&O x 3 Dx/Plan (1) Acute exacerbation of CHF (congestive heart failure) Code(s): I50.9 - HEART FAILURE, UNSPECIFIED Status: Acute Qualifiers: Heart failure type: systolic Qualified Code(s): I50.23 - Acute on chronic systolic (congestive) heart failure (2) Elevated troponin Code(s): R74.8 - ABNORMAL LEVELS OF OTHER SERUM ENZYMES Status: Acute (3) Macrocytic anemia Code(s): D53.9 - NUTRITIONAL ANEMIA, UNSPECIFIED Status: Chronic (4) CKD (chronic kidney disease) stage 3, GFR 30-59 ml/min Status: Chronic - Plan Plan: 58-yo male admitted for: HFrEF, Acute CHF Exacerbation - EF 08/2018 15-20% - Cath 12/2018 - non ischemic cardiomyopathy, continue medical management. - 40 IV lasix BID until euvolemic. Takes 80mg PO at home. Pt is diuresing, albeit slower than ideal. - home entresto. Metolazone given yesterday, pt takes prn for leg edema - Continue diuresis and monitoring of electrolytes. Likely will develop contraction alkalosis and may need diamox. - UA showed >50 hyaline casts, urobilinogen 2.0. Continue strict I/Os and fluid restriction of 1500. - Daily weights. Pt is increased 1.28 kg since admission. Elevated Troponin levels, indeterminate. HTN - currently normotensive. home medications, coreg Chronic A-Fib w/ AICD pacer - continue Eliquis and Amiodarone H/o Gout - hold probenecid/colchicine for now due to kidney function. - this is a home med pt may take if kidney fxn improves. Cirrhosis - pt aware of dx, not currently on medication Macrocytic anemia, chronic Thrombocytopenia, sub-acute - continue to monitor, MCV has been chronically elevated. - pt has history of alcohol abuse. Told me today his last drink was 3 weeks ago. - thrombocytopenia likely 2/2 to cirrhosis. - B12 high 1 month ago, folate was normal. GERD - Dexilant is a home med. pt is getting protonix daily here. - held naproxen for pain, pt may have tylenol for now. Furthermore, NSAIDs may interfere w/ diuretic effectiveness. HLD - continue statin Tobacco abuse - prescribed nicotine patch today. Advised pt not to go outside and smoke as this may be exacerbating his GERD. Subclinical hypothyroidism - per chart review, TSH low and free T4/T3 normal in 08/2018 Disposition/LOS: continue to monitor on telemetry today. Dispo: stable Code: full VTE: Destineekrista Addendum - Attending - Attending Attestation Date/Time: 02/14/19 3742 I personally evaluated the patient and discussed the management with Dr. Landeros. I agree with the History, Examination, Assessment and Plan documented above with any addition or exceptions noted below. Patient improved this morning. Abdominal pain is improved. He does not require O2 when he is sitting upright but continues to have dyspnea when laying flat. Continue diuresis but monitor renal function as it is continuing to decrease. Ambulate. Fluid restriction.
[2019-02-14] MEDS: Amiodarone 200 MG TAB PO SCH (07:49)
[2019-02-14] MEDS: Atorvastatin Calcium 40 MG TAB PO SCH (07:49)
[2019-02-14] MEDS: Carvedilol 3.125 MG TAB PO SCH ×2 (07:49→20:24)
[2019-02-14] MEDS: Apixaban 5 MG TAB PO SCH ×2 (07:49→20:24)
[2019-02-14] MEDS: Magnesium Oxide 400 MG TAB PO SCH (07:49)
[2019-02-14] MEDS: Aspirin 81 mg Enteric Coated Tablet PO SCH (07:50)
[2019-02-14] MEDS: Sucralfate 1 GM TAB PO SCH ×4 (07:50→20:24)
[2019-02-14] MEDS: Ferrous Sulfate 325 MG TAB PO SCH (07:50)
[2019-02-14] MEDS: Acetaminophen 325 MG TAB PO PRN ×4 (07:50→21:46)
[2019-02-14] MEDS: Nicotine 14 MG PATCH TD SCH (07:50)
--- NOTE | 2019-02-14 16:21 | PDOC.BPN ---
- Brief Progress Note Received [facility] Text from RN that pt was having recurrent epigastric pain not relieved by Tylenol & carafate. RN requested imaging for pt. Went to evaluate pt. He was sleeping and said his pain had improved. He thinks the Tylenol and carafate might be helping. Says what really used to help his abdominal pain was Zantac, but it has been taken off the shelf. Kirker helped as well. Pt's abdominal exam is relatively unchanged from this morning. He is not more distended than on previous exams. Tympanitic to percussion diffusely: unchanged. Tender to deep palpation over epigastrium. Possible hepatomegaly. No RUQ tenderness. Assessment continues to be suggestive of gastritis or gastric ulcer, although pt 's pain is not associated in any way with food. His lipase yesterday was 13. We will continue carafate and Tylenol. He had a HIDA scan one month ago which showed no gallbladder pathology. If he should acutely worsen, we may consider imaging. Updated RN on plan of care via [facility] Text.
--- NOTE | 2019-02-14 22:27 | CON ---
DATE OF CONSULTATION: HISTORY OF PRESENT ILLNESS: Mónica Aldrich is a 58-year-old black male, who is followed with Dr. Cuevas for several years. He has nonischemic cardiomyopathy with normal coronary arteries on catheterization in the past. Most recent ejection fraction was 15% to 20%. He has chronic atrial fibrillation and has a right subclavian biventricular defibrillator. He was just hospitalized on January 14 for increased shortness of breath. He states he has not run out of any of his medicines. He now is admitted with increased shortness of breath. He complains of a fullness in his epigastric area. He denies any fever or chills at home. 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 PAST SURGICAL HISTORY: Biventricular ICD placement via the right subclavian vein. MEDICATIONS: 1. Amiodarone 200 mg daily. 2. Eliquis 5 mg b.i.d. 3. Aspirin 81 daily. 4. Atorvastatin 80 daily. 5. Carvedilol 3.125 b.i.d. 6. Flexeril 10 mg p.r.n. 7. Dexilant 60 mg daily. 8. Breo Ellipta 1 puff p.r.n. 9. Furosemide 80 mg b.i.d. 10. Hydrocodone. 11. Feosol. 12. Magnesium 200 mg daily. 13. Metolazone 5 mg p.r.n. 14. Naprosyn 500 mg p.r.n. 15. Tamiflu 75 mg b.i.d. 16. Entresto 24/26 b.i.d. 17. Torsemide 20 mg q.i.d. ALLERGIES: IODINE. SOCIAL HISTORY: He does not smoke or drink. FAMILY HISTORY: Unremarkable. REVIEW OF SYSTEMS: A 12-point review of systems is otherwise unremarkable. PHYSICAL EXAMINATION: VITAL SIGNS: Blood pressure 119/82, pulse of 81. HEENT: PERRL. NECK: Supple. CHEST: Clear. CARDIAC: S1 and S2 normal without any S3 or S4. There is a 1-2/6 holosystolic murmur at the apex. ABDOMEN: Normal bowel sounds without tenderness. EXTREMITIES: Revealed no clubbing or cyanosis. There is trace edema. NEUROLOGIC: Grossly intact. LABORATORY DATA: EKG reveals ventricular pacing, hemoglobin 14.1, hematocrit 43.7, white count 7900, platelets 105,000. Sodium 138, potassium 3.6, chloride 99, carbon dioxide 31, BUN 27, creatinine 2.0. BNP 1312. Troponin I is 0.236, which is pretty much his usual finding. IMPRESSION: 1. Nonischemic cardiomyopathy. 2. Biventricular implantable cardioverter defibrillator. 3. [id number] heart failure. 4. Mild coronary artery disease on catheterization, December 2018. PLAN: [facility] express will be performed to assess his volume status. We will continue to follow the patient with you. Job ID: [id number] MTDD
[2019-02-15] MEDS: Furosemide 40 MG/4 ML VIAL SLOW IVP SCH ×2 (05:55→15:02)
--- NOTE | 2019-02-15 06:04 | PDOC.FM ---
- Subjective Subjective: Pt has been outside smoking. Pt c/o of SOB worsening this morning. down 2 kg yesterday. I/O 720/1000. - Objective MAR Reviewed: Yes Vital Signs & Weight: Vital Signs (12 hours) Temp Pulse Resp BP Pulse Ox 02/15/19 05:27 82 18 98 02/15/19 03:15 97.5 F L 70 20 101/81 99 02/15/19 01:05 75 106/71 02/14/19 22:46 95 02/14/19 20:21 97.3 F L 81 18 119/82 99 Weight Weight 93.213 kg I&O: 02/13/19 02/14/19 02/15/19 06:59 06:59 06:59 Intake Total 1210 720 Output Total 1325 1000 Balance -115 -280 Result Diagrams: 02/15/19 06:24 02/15/19 06:24 Phys Exam - Physical Examination Constitutional: NAD HEENT: moist MMs, sclera anicteric Neck: no nodes, supple, full ROM + JVD + Diffuse Rales Cardiovascular: RRR, no rub Gastrointestinal: soft, non-tender, positive bowel sounds Musculoskeletal: pulses present, edema present (Trace BLE pitting edema ) Neurological: normal sensation, moves all 4 limbs Psychiatric: normal affect, A&O x 3 Skin: normal turgor, cap refill <2 seconds Dx/Plan (1) Acute exacerbation of CHF (congestive heart failure) Code(s): I50.9 - HEART FAILURE, UNSPECIFIED Status: Acute Qualifiers: Heart failure type: systolic Qualified Code(s): I50.23 - Acute on chronic systolic (congestive) heart failure (2) Elevated troponin Code(s): R74.8 - ABNORMAL LEVELS OF OTHER SERUM ENZYMES Status: Acute (3) Chronic systolic (congestive) heart failure Code(s): I50.22 - CHRONIC SYSTOLIC (CONGESTIVE) HEART FAILURE Status: Chronic (4) Alcoholic cirrhosis of liver Code(s): K70.30 - ALCOHOLIC CIRRHOSIS OF LIVER WITHOUT ASCITES Status: Chronic (5) GERD (gastroesophageal reflux disease) Code(s): K21.9 - GASTRO-ESOPHAGEAL REFLUX DISEASE WITHOUT ESOPHAGITIS Status: Chronic Qualifiers: Esophagitis presence: without esophagitis Qualified Code(s): K21.9 - Gastro -esophageal reflux disease without esophagitis (6) CKD (chronic kidney disease) stage 3, GFR 30-59 ml/min Status: Chronic (7) Gout Code(s): M10.9 - GOUT, UNSPECIFIED Status: Chronic (8) Hypertension Code(s): I10 - ESSENTIAL (PRIMARY) HYPERTENSION Status: Chronic Qualifiers: Hypertension type: essential hypertension Qualified Code(s): I10 - Essential (primary) hypertension (9) Nonischemic cardiomyopathy Code(s): I42.9 - CARDIOMYOPATHY, UNSPECIFIED Status: Chronic - Plan Plan: 58-yo male admitted for: HFrEF, Acute CHF Exacerbation - EF 08/2018 15-20% - Cath 12/2018 - non ischemic cardiomyopathy, continue medical management. - 40 IV lasix BID until euvolemic. Takes 80mg PO at home. Pt is diuresing, albeit slower than ideal. - home entresto. Metolazone given yesterday, pt takes prn for leg edema - Continue diuresis and monitoring of electrolytes. Likely will develop contraction alkalosis and may need diamox. - UA showed >50 hyaline casts, urobilinogen 2.0. Continue strict I/Os and fluid restriction of 1500. - Daily weights. Pt is increased 1.28 kg since admission. - Cards consulted as Cr rising and diuresis slowed. Appreciate recs. - Pt continuing to smoke JOSE A on CKD - Cr 2--> 1.68, will trend Elevated Troponin levels, indeterminate. - no chest pain, will monitor. likely 2/2 volume overload. HTN - currently normotensive. home medications, coreg Chronic A-Fib w/ AICD pacer - continue Eliquis and Amiodarone H/o Gout - hold probenecid/colchicine for now due to kidney function. - this is a home med pt may take if kidney fxn improves. Cirrhosis - pt aware of dx, not currently on medication Macrocytic anemia, chronic Thrombocytopenia, sub-acute - continue to monitor, MCV has been chronically elevated. - pt has history of alcohol abuse. Reports last drink was 3 weeks ago. - thrombocytopenia likely 2/2 to cirrhosis. - B12 high 1 month ago, folate was normal. GERD - Dexilant is a home med. pt is getting protonix daily here. - held naproxen for pain, pt may have tylenol for now. Furthermore, NSAIDs may interfere w/ diuretic effectiveness. HLD - continue statin Tobacco abuse - prescribed nicotine patch. Advised pt not to go outside and smoke as this may be exacerbating his GERD. Subclinical hypothyroidism - per chart review, TSH low and free T4/T3 normal in 08/2018 Disposition/LOS: continue to monitor on telemetry. Dispo: stable Code: full VTE: Josseline Addendum - Attending - Attending Attestation Date/Time: 02/15/19 8930 I personally evaluated the patient and discussed the management with Dr. Alonso. I agree with the History, Examination, Assessment and Plan documented above with any addition or exceptions noted below.
[2019-02-15 07:05] LABS: Hemoglobin 14.8 g/dL (14.0-18.0); Mean Corpuscular Hemoglobin 33.2 pg (27.0-31.0); Mean Platelet Volume 9.7 fL (7.4-10.4); Platelet Count 104 thou/uL (130-400); RBC Distribution Width 14.1 % (11.5-14.5); Red Blood Cell (RBC) Count 4.45 mill/uL (4.70-6.10); White Blood Cell (WBC) Count 9.1 thou/uL (4.8-10.8)
[2019-02-15 07:21] LABS: Anion Gap 17 mmol/L (10-20); BUN (Urea Nitrogen) 29 mg/dL (8.4-25.7); Calc. Creatinine Clearance 61 mL/min (70-130); Carbon Dioxide 25 mmol/L (22-29); Chloride 97 mmol/L (98-107); Estimated GFR-MDRD 51; Glucose 68 mg/dL (70-105); Potassium 3.8 mmol/L (3.5-5.1); Sodium 135 mmol/L (136-145)
[2019-02-15] MEDS: Amiodarone 200 MG TAB PO SCH (08:30)
[2019-02-15] MEDS: Sucralfate 1 GM TAB PO SCH ×4 (08:30→20:50)
[2019-02-15] MEDS: Magnesium Oxide 400 MG TAB PO SCH (08:30)
[2019-02-15] MEDS: Atorvastatin Calcium 40 MG TAB PO SCH (08:30)
[2019-02-15] MEDS: Acetaminophen 325 MG TAB PO PRN (08:30)
[2019-02-15] MEDS: Aspirin 81 mg Enteric Coated Tablet PO SCH (08:30)
[2019-02-15] MEDS: Carvedilol 3.125 MG TAB PO SCH ×2 (08:30→20:50)
[2019-02-15] MEDS: Apixaban 5 MG TAB PO SCH ×2 (08:31→20:50)
[2019-02-15] MEDS: Nicotine 14 MG PATCH TD SCH ×2 (08:31→08:37)
[2019-02-15] MEDS: Ferrous Sulfate 325 MG TAB PO SCH (08:31)
--- NOTE | 2019-02-15 08:35 | RAD ---
CHEST 1 VIEW: INDICATION: History of followup examination. COMPARISON: Prior exam dated 02/12/2019. FINDINGS: Multilead AICD and cardiomegaly is stable. No focal consolidation, pleural effusion, or pneumothorax is evident. No acute osseous abnormality is noted. IMPRESSION: Cardiomegaly is stable. Mild pulmonary vascular congestion is stable. Automatic implantable cardiov erter/defibrillator is unchanged. No pneumothorax. POS: BH
[2019-02-15 12:47] LABS: ALT (SGPT) 23 U/L (8-55); AST (SGOT) 42 U/L (5-34); Albumin 3.7 g/dL (3.5-5.0); Alkaline Phosphatase 124 U/L (40-110); Bilirubin, Direct 1.7 mg/dL (0.1-0.3); Bilirubin, Total 2.8 mg/dL (0.2-1.2)
[2019-02-15] MEDS ORDERED: Furosemide 40 MG/4 ML VIAL SLOW IVP SCH (15:15)
--- NOTE | 2019-02-15 15:17 | PDOC.CPN ---
- Subjective Date: 02/15/19 Time: 15:15 Interval history: He has noticed mild improvement. Normally he urinates a lot more with IV lasix. - Review of Systems General: denies: fever/chills, weight/appetite/sleep changes, night sweats, fatigue Respiratory: reports: shortness of breath. denies: cough, congestion, exercise intolerance Cardiovascular: denies: chest pain, palpitation, edema, paroxysmal nocturnal dyspnea, orthopnea Gastrointestinal: denies: nausea, vomiting, diarrhea, constipation, abd pain, GI bleeding Musculoskeletal: denies: pain, tenderness, stiffness, swelling, arthritis/ arthralgias Neurological: denies: numbness, syncope, seizure, weakness - Objective Allergies/Adverse Reactions: Allergies Allergy/AdvReac Type Severity Reaction Status Date / Time iodine Allergy Mild Hives Verified 12/28/18 09:31 spironolactone Allergy Verified 12/28/18 09:31 Visit Medications: Current Medications Acetaminophen (Tylenol) 650 mg PO Q4H PRN PRN Reason: Headache/Fever/Mild Pain (1-3) Last Admin: 02/15/19 08:30 Dose: 650 mg Albuterol/Ipratropium (Duoneb) 3 ml NEB [id number] PRN PRN Reason: SOB &/or Wheezing Last Admin: 02/15/19 05:27 Dose: 3 ml Amiodarone HCl (Cordarone) 200 mg PO DAILY [facility] Last Admin: 02/15/19 08:30 Dose: 200 mg Apixaban (Eliquis) 5 mg PO BID [facility] Last Admin: 02/15/19 08:31 Dose: 5 mg Aspirin (Ecotrin) 81 mg PO DAILY [facility] Last Admin: 02/15/19 08:30 Dose: 81 mg Atorvastatin Calcium (Lipitor) 80 mg PO DAILY [facility] Last Admin: 02/15/19 08:30 Dose: 80 mg Carvedilol (Coreg) 3.125 mg PO BID [facility] Last Admin: 02/15/19 08:30 Dose: 3.125 mg Ferrous Sulfate (Feosol) 325 mg PO DAILY [facility] Last Admin: 02/15/19 08:31 Dose: 325 mg Furosemide (Lasix) 40 mg SLOW IVP 0600,1400 [facility] Last Admin: 02/15/19 15:02 Dose: 40 mg Magnesium Oxide (Magnesium Oxide) 200 mg PO DAILY [facility] Last Admin: 02/15/19 08:30 Dose: 200 mg Metolazone (Zaroxolyn) 5 mg PO DAILYPRN PRN PRN Reason: Edema Last Admin: 02/13/19 08:04 Dose: 5 mg Nicotine (Nicoderm Patch) 14 mg TD Q24HR [facility] Last Admin: 02/15/19 08:37 Dose: Not Given Pantoprazole Sodium (Protonix) 40 mg PO DAILY [facility] Last Admin: 02/15/19 08:31 Dose: 40 mg Sacubitril/Valsartan (Entresto 24 Mg-26 Mg Tablet) 1 tab PO BID [facility] Last Admin: 02/15/19 08:31 Dose: 1 tab Sucralfate (Carafate) 1 gm PO ACHS [facility] Last Admin: 02/15/19 15:02 Dose: 1 gm Vital Signs & Weight: Vital Signs Temp Pulse Resp BP Pulse Ox 02/15/19 12:15 97.2 F L 72 18 129/70 96 02/15/19 08:22 97.7 F 20 106/83 97 02/15/19 05:27 82 18 98 Weight 201 lb 6.4 oz - Physical Exam General: alert & oriented x3 HEENT: mucus membranes moist Neck: supple neck Cardiac: regular rate and rhythm Lungs: bibasilar rales Neuro: grossly intact Abdomen: active bowel sounds Extremities: 1+ LE edema Skin: clear Musculoskeletal: no pain - Labs Result Diagrams: 02/15/19 06:24 02/15/19 06:24 Troponin/CKMB CK-MB (CK-2) 3.1 ng/mL (0-6.6) 02/12/19 00:27 Troponin I 0.236 ng/mL (< 0.028) H 02/12/19 06:16 - Telemetry Supraventricular conduction: atrial fibrillation - Assessment/Plan Assessment/Plan: 1. Acute on chronic systolic CHF 2. Chronic afib 3. Non ischemic CM EF at 20-25% 4. Normal coronaries Dec 2018 5. S/P Biventricular AICD PLAN: - Will increase dose of IV lasix. -
[2019-02-15] MEDS ORDERED: Morphine 2 MG/ML SYRINGE SLOW IVP SCH (16:00)
[2019-02-15] MEDS: Famotidine 20 MG TAB PO SCH (20:50)
[2019-02-16 04:10] LABS: Anion Gap 16 mmol/L (10-20); BUN (Urea Nitrogen) 30 mg/dL (8.4-25.7); Calc. Creatinine Clearance 58 mL/min (70-130); Calcium 9.8 mg/dL (7.8-10.44); Carbon Dioxide 29 mmol/L (22-29); Chloride 95 mmol/L (98-107); Estimated GFR-MDRD 48; Glucose 121 mg/dL (70-105); Potassium 3.6 mmol/L (3.5-5.1); Sodium 136 mmol/L (136-145)
[2019-02-16] MEDS: Furosemide 40 MG/4 ML VIAL SLOW IVP SCH ×2 (05:52→14:03)
--- NOTE | 2019-02-16 06:19 | PDOC.FM ---
- Subjective Subjective: Pt states he is feeling better this AM. Pt is resting in a chair down on 1st floor of hospital this morning. Off O2, breathing well. Denies CP, states he get abd pain off and on since his hospital stay here, alleviated with antacids. - Objective MAR Reviewed: Yes Vital Signs & Weight: Vital Signs (12 hours) Temp Pulse Resp BP BP Pulse Ox 02/16/19 03:38 97.7 F 71 20 127/80 96 02/16/19 00:50 71 18 98 02/15/19 20:00 97.8 F 75 18 119/84 97 Weight Weight 90.265 kg I&O: 02/14/19 02/15/19 02/16/19 06:59 06:59 06:59 Intake Total 668 484 9103 Output Total 1000 1625 0780 Balance -869 -009 -6432 Result Diagrams: 02/15/19 06:24 02/16/19 03:36 Phys Exam - Physical Examination Constitutional: NAD HEENT: moist MMs scleral icterus Neck: no nodes, supple + JVD + Rhonchi and wheezing. Cardiovascular: RRR, no rub sys murmur Gastrointestinal: soft, non-tender, no distention, positive bowel sounds Musculoskeletal: no edema, pulses present Neurological: non-focal, moves all 4 limbs Psychiatric: normal affect, A&O x 3 Skin: normal turgor, cap refill <2 seconds Dx/Plan (1) Acute exacerbation of CHF (congestive heart failure) Code(s): I50.9 - HEART FAILURE, UNSPECIFIED Status: Acute Qualifiers: Heart failure type: systolic Qualified Code(s): I50.23 - Acute on chronic systolic (congestive) heart failure (2) Elevated troponin Code(s): R74.8 - ABNORMAL LEVELS OF OTHER SERUM ENZYMES Status: Acute (3) Chronic systolic (congestive) heart failure Code(s): I50.22 - CHRONIC SYSTOLIC (CONGESTIVE) HEART FAILURE Status: Chronic (4) Alcoholic cirrhosis of liver Code(s): K70.30 - ALCOHOLIC CIRRHOSIS OF LIVER WITHOUT ASCITES Status: Chronic (5) GERD (gastroesophageal reflux disease) Code(s): K21.9 - GASTRO-ESOPHAGEAL REFLUX DISEASE WITHOUT ESOPHAGITIS Status: Chronic Qualifiers: Esophagitis presence: without esophagitis Qualified Code(s): K21.9 - Gastro -esophageal reflux disease without esophagitis (6) CKD (chronic kidney disease) stage 3, GFR 30-59 ml/min Status: Chronic (7) Gout Code(s): M10.9 - GOUT, UNSPECIFIED Status: Chronic (8) Hypertension Code(s): I10 - ESSENTIAL (PRIMARY) HYPERTENSION Status: Chronic Qualifiers: Hypertension type: essential hypertension Qualified Code(s): I10 - Essential (primary) hypertension (9) Nonischemic cardiomyopathy Code(s): I42.9 - CARDIOMYOPATHY, UNSPECIFIED Status: Chronic - Plan Plan: 58-yo male admitted for: HFrEF, Acute CHF Exacerbation - EF 08/2018 15-20% - Cath 12/2018 - non ischemic cardiomyopathy, continue medical management. - Takes 80mg PO at home. - home entresto. Metolazone given yesterday, pt takes prn for leg edema - Continue diuresis and monitoring of electrolytes. Likely will develop contraction alkalosis and may need diamox. - UA showed >50 hyaline casts, urobilinogen 2.0. Continue strict I/Os and fluid restriction of 1500. - Daily weights. Pt is increased 1.28 kg since admission. - Cards consulted as Cr rising and diuresis slowed initially. Appreciate recs. Increasing Laxis IV dose, had great output yesterday. - Pt continuing to smoke JOSE A on CKD - Cr 2--> 1.68--> 1.78, will trend Elevated Troponin levels, indeterminate. - no chest pain, will monitor. likely 2/2 volume overload. HTN - currently normotensive. home medications, coreg Chronic A-Fib w/ AICD pacer - continue Eliquis and Amiodarone H/o Gout - hold probenecid/colchicine for now due to kidney function. - this is a home med pt may take if kidney fxn improves. Cirrhosis - pt aware of dx, not currently on medication Macrocytic anemia, chronic Thrombocytopenia, sub-acute - continue to monitor, MCV has been chronically elevated. - pt has history of alcohol abuse. Reports last drink was 3 weeks ago. - thrombocytopenia likely 2/2 to cirrhosis. - B12 high 1 month ago, folate was normal. GERD - Dexilant is a home med. pt is getting protonix daily here. - held naproxen for pain, pt may have tylenol for now. HLD - continue statin Tobacco abuse - prescribed nicotine patch. Advised pt not to go outside and smoke as this may be exacerbating his GERD. Subclinical hypothyroidism - per chart review, TSH low and free T4/T3 normal in 08/2018 Disposition/LOS: continue to monitor on telemetry. Dispo: stable Code: full VTE: Josseline Addendum - Attending - Attending Attestation Date/Time: 02/16/19 1520 I personally evaluated the patient and discussed the management with Dr. Alonso. I agree with the History, Examination, Assessment and Plan documented above with any addition or exceptions noted below. Please note on exam lungs ctab s w/r/r. No JVD that I can appreciate. No edema. Patient would like to go home. Discuss with cards, possible d/c later today.
[2019-02-16] MEDS: Aspirin 81 mg Enteric Coated Tablet PO SCH (08:10)
[2019-02-16] MEDS: Amiodarone 200 MG TAB PO SCH (08:10)
[2019-02-16] MEDS: Ferrous Sulfate 325 MG TAB PO SCH (08:10)
[2019-02-16] MEDS: Sucralfate 1 GM TAB PO SCH ×3 (08:10→17:51)
[2019-02-16] MEDS: Magnesium Oxide 400 MG TAB PO SCH (08:10)
[2019-02-16] MEDS: Famotidine 20 MG TAB PO SCH (08:10)
[2019-02-16] MEDS: Carvedilol 3.125 MG TAB PO SCH (08:10)
[2019-02-16] MEDS: Apixaban 5 MG TAB PO SCH (08:10)
[2019-02-16] MEDS: Atorvastatin Calcium 40 MG TAB PO SCH (08:11)
[2019-02-16] MEDS: Nicotine 14 MG PATCH TD SCH (08:11)
--- NOTE | 2019-02-16 16:12 | PDOC.CPN ---
- Subjective Date: 02/16/19 Time: 16:10 Interval history: He is doing much better., Increased dose of lasix diuresed very well. - Review of Systems General: denies: fever/chills, weight/appetite/sleep changes, night sweats, fatigue Respiratory: denies: cough, congestion, shortness of breath, exercise intolerance Cardiovascular: denies: chest pain, palpitation, edema, paroxysmal nocturnal dyspnea, orthopnea Gastrointestinal: denies: nausea, vomiting, diarrhea, constipation, abd pain, GI bleeding Musculoskeletal: denies: pain, tenderness, stiffness, swelling, arthritis/ arthralgias Neurological: denies: numbness, syncope, seizure, weakness - Objective Allergies/Adverse Reactions: Allergies Allergy/AdvReac Type Severity Reaction Status Date / Time iodine Allergy Mild Hives Verified 12/28/18 09:31 spironolactone Allergy Verified 12/28/18 09:31 Visit Medications: Current Medications Acetaminophen (Tylenol) 650 mg PO Q4H PRN PRN Reason: Headache/Fever/Mild Pain (1-3) Last Admin: 02/15/19 08:30 Dose: 650 mg Albuterol/Ipratropium (Duoneb) 3 ml NEB T9IN-VT PRN PRN Reason: SOB &/or Wheezing Last Admin: 02/15/19 05:27 Dose: 3 ml Amiodarone HCl (Cordarone) 200 mg PO DAILY [facility] Last Admin: 02/16/19 08:10 Dose: 200 mg Apixaban (Eliquis) 5 mg PO BID [facility] Last Admin: 02/16/19 08:10 Dose: 5 mg Aspirin (Ecotrin) 81 mg PO DAILY [facility] Last Admin: 02/16/19 08:10 Dose: 81 mg Atorvastatin Calcium (Lipitor) 80 mg PO DAILY [facility] Last Admin: 02/16/19 08:11 Dose: 80 mg Carvedilol (Coreg) 3.125 mg PO BID [facility] Last Admin: 02/16/19 08:10 Dose: 3.125 mg Famotidine (Pepcid) 20 mg PO BID [facility] Last Admin: 02/16/19 08:10 Dose: 20 mg Ferrous Sulfate (Feosol) 325 mg PO DAILY [facility] Last Admin: 02/16/19 08:10 Dose: 325 mg Furosemide (Lasix) 80 mg SLOW IVP 0600,1400 [facility] Last Admin: 02/16/19 14:03 Dose: 80 mg Magnesium Oxide (Magnesium Oxide) 200 mg PO DAILY [facility] Last Admin: 02/16/19 08:10 Dose: 200 mg Metolazone (Zaroxolyn) 5 mg PO DAILYPRN PRN PRN Reason: Edema Last Admin: 02/13/19 08:04 Dose: 5 mg Nicotine (Nicoderm Patch) 14 mg TD Q24HR [facility] Last Admin: 02/16/19 08:11 Dose: Not Given Pantoprazole Sodium (Protonix) 40 mg PO DAILY [facility] Last Admin: 02/16/19 08:10 Dose: 40 mg Sacubitril/Valsartan (Entresto 24 Mg-26 Mg Tablet) 1 tab PO BID [facility] Last Admin: 02/16/19 08:11 Dose: 1 tab Sucralfate (Carafate) 1 gm PO ACHS [facility] Last Admin: 02/16/19 12:44 Dose: 1 gm Vital Signs & Weight: Vital Signs Temp Pulse Resp BP Pulse Ox 02/16/19 11:40 97.4 F L 76 20 107/76 98 02/16/19 08:09 97.6 F 75 18 110/73 95 Weight 199 lb - Physical Exam General: alert & oriented x3 HEENT: mucus membranes moist, normocephaly Neck: supple neck Cardiac: regular rate and rhythm, no murmur Lungs: clear to auscultation Neuro: grossly intact Abdomen: active bowel sounds, soft, non-tender Extremities: no edema Skin: clear Musculoskeletal: no pain - Labs Result Diagrams: 02/15/19 06:24 02/16/19 03:36 Troponin/CKMB CK-MB (CK-2) 3.1 ng/mL (0-6.6) 02/12/19 00:27 Troponin I 0.236 ng/mL (< 0.028) H 02/12/19 06:16 - Telemetry Supraventricular conduction: atrial fibrillation - Assessment/Plan Assessment/Plan: 1. Acute on chronic systolic CHF 2. Chronic afib 3. Non ischemic CM EF at 20-25% 4. Normal coronaries Dec 2018 5. S/P Biventricular AICD PLAN: - Has diuresed very well and feels back to euvolemia. - Will switch his lasix back to 80 mg PO BID and may discharge at any time form cardiac perspective. -Follow up in the office in 1 month and with Flory within 1 or 2 weeks.
[2019-02-16 17:05] VITALS: BP 122/87; TEMP 97.5
[2019-02-17] MEDS ORDERED: Furosemide 20 MG TAB PO SCH (09:00)
--- NOTE | 2019-02-17 14:11 | DIS ---
DATE OF ADMISSION: 02/12/2019 DATE OF DISCHARGE: 02/16/2019 RESIDENT: Sravanthi Alonso DO ADMITTING ATTENDING: Rina Levine MD DISCHARGE ATTENDING: Dr. Sundeep Llamas. CONSULTS: Cardiology, Dexter Cuevas MD PROCEDURES PERFORMED: None. DIAGNOSES: 1. Heart failure with reduced ejection fraction with acute congestive heart failure exacerbation. 2. Nonischemic cardiomyopathy. 3. Acute kidney injury on chronic kidney disease. 4. Elevated troponin level of indeterminate. 5. Hypertension. 6. Chronic atrial fibrillation with AICD pacer. 7. History of gout. 8. History of cirrhosis with elevated liver enzymes. 9. Hyperlipidemia. 10. Tobacco abuse. 11. Subclinical hypothyroidism. DISCHARGE MEDICATIONS: 1. Amiodarone 200 mg p.o. daily. 2. Eliquis 5 mg p.o. b.i.d. 3. Aspirin 81 mg p.o. daily. 4. Atorvastatin 80 mg p.o. at bedtime. 5. Carvedilol 3.125 mg p.o. b.i.d. 6. Furosemide 80 mg p.o. b.i.d. 7. Iron 325 p.o. daily. 8. Magnesium 200 mg p.o. daily. 9. Metolazone 5 mg p.o. p.r.n. 10. Entresto 24 mg/26 mg p.o. b.i.d. 11. Carafate 1 g p.o. q.a.c. and at bedtime. 12. Flexeril 10 mg p.o. p.r.n. 13. Dexilant 60 mg p.o. daily. 14. Breo Ellipta 1 puff inhaled p.r.n. 15. Hydrocodone 10/325 one to two tabs p.o. p.r.n. for pain. 16. Naproxen 500 mg p.o. p.r.n. 17. Colchicine/probenecid one tab p.o. b.i.d. 18. Ambien 10 mg p.o. at bedtime. DISCONTINUED MEDICATION: Furosemide 20 mg p.o. b.i.d., Bumex. HISTORY OF PRESENT ILLNESS/HOSPITAL COURSE: Mr. Aldrich is a 58-year-old male with a history of nonischemic cardiomyopathy, AFib with AICD placement, came into the emergency department with increasing shortness of breath over the last two weeks. He says that he has been noncompliant with his fluid restriction and drinking a lot of iced tea. The patient was started on 40 mg IV Lasix b.i.d. This was not doing very well for his diuresis. Cardiology, Dr. Cuevas, was consulted as his creatinine function bumped to 2 from his baseline of 1.5-1.6. Dr. Cuevas recommended increasing the Lasix to 80 IV b.i.d. for two days and this did very well for diuresis. The patient improved clinically. Dr. Cuevas recommended changing the home diuretics to 80 of Lasix p.o. b.i.d. The patient was on Bumex and p.r.n. metolazone. Dr. Cuevas discontinued the Bumex. We will see patient soon for followup appointment at [facility] and draw labs. Repeat comprehensive metabolic panel, liver enzymes, as well as creatinine function as he is being diuresed. The patient has a history of elevated liver enzymes because of his cirrhosis. DISPOSITION: The patient was stable upon discharge. Diuresed well and symptoms had improved. DISCHARGE INSTRUCTIONS: 1. Location: Eager to go home. 2. Diet: The patient has a home diet, heart healthy, low sodium. 3. Activity: As tolerated. 4. Followup: Follow up with primary care at [facility] in one weeks time. Job ID: [id number] MTDD
--- NOTE | 2019-02-18 14:18 | PQF ---
ALFREDO HENDERSON LESLIE *r [id number] CLINICAL DOCUMENTATION IMPROVEMENT CLARIFICATION FORM: ICD-10 Updated PLEASE DO AN ADDENDUM TO THE PROGRESS NOTE WITH ANY DOCUMENTATION UPDATES OR ADDITIONS AND CARRY THROUGH TO DC SUMMARY. THANK YOU. DATE: 02/18/19 ATTN: Dr. Alonso Please exercise your independent, professional judgment in responding to the clarification form. Clinical indicators are provided on the bottom of this form for your review Please check appropriate box(s): [ * ] Acute Respiratory Failure due to: acute exacerbation of HFrEF In addition, please specify: Present on Admission (POA): [ * ] Yes For continuity of documentation, please document condition throughout progress notes and discharge summary. Thank You. CLINICAL INDICATORS - SIGNS / SYMPTOMS / LABS / RESULTS AND LOCATION IN MR 02/12 RR 24 ON BIPAP AT ED VS "SOB" per 02/12 ED([facility]) 02/12 ED ([facility]):" CXR showed cardiomegaly with pulm edema. symptoms sig improved on BIPAP." BNP 1911.5 02/12 lab RISK FACTORS / RESULTS AND LOCATION IN MR 02/12 ([facility]): "acute on chronic CHF exacerbation with reduced EF" TREATMENTS / RESULTS AND LOCATION IN Oxygen via BIPAP per ED VS 02/12 to 2L NC Monitoring of oxygenation status on Telemetry per 02/12 orders Diuresis--> 02/12 Lasix 40mg IV once then 02/12-02/15 Lasix 40mg IV BID--> addt'l Lasix 40mg IV once-->02/16 lasix 80mg IV BID to Lasix 80mg po BID 02/17 per orders Acute Respiratory Failure: ABG pH < 7.35 or > 7.45; Decreased oxygen saturation (<90% room air or < 95% on oxygen); PCO2 > 50 mm Hg; PO2 < 60 mm Hg; Labored or rapid respirations ARDS: Dx Criteria [[place] ARDS]: Respiratory symptoms within one week of a known clinical insult (e.g. shock, infection, surgery, trauma) Bilateral opacities in CXR/Chest CT not due to CHF or fluid (This form is maintained as a part of the permanent medical record) 2014 [employer]. All Rights Reserved Tracy Murguia RN, BSN, CCDS [email or web address] MTDD
== END 2019-02-15 18:31 | disposition home or self-care (01) | DRG 291 ==
LOC: ERS 00:05 → 2NO 04:14
PROVIDERS: ADMIT Family Medicine; ATTEND Family Medicine
DX: I13.0 Hypertensive heart and chronic kidney disease with heart failure and stage 1 through stage 4 chronic kidney disease, or unspecified chronic kidney disease (principal); I50.23 Acute on chronic systolic (congestive) heart failure; J96.00 Acute respiratory failure, unspecified whether with hypoxia or hypercapnia; I48.20 Chronic atrial fibrillation, unspecified; N17.9 Acute kidney failure, unspecified; I25.5 Ischemic cardiomyopathy; F10.10 Alcohol abuse, uncomplicated; K70.30 Alcoholic cirrhosis of liver without ascites; I34.1 Nonrheumatic mitral (valve) prolapse; F19.10 Other psychoactive substance abuse, uncomplicated; M10.9 Gout, unspecified; G47.33 Obstructive sleep apnea (adult) (pediatric); N18.3 Chronic kidney disease, stage 3 (moderate); F17.210 Nicotine dependence, cigarettes, uncomplicated; F12.10 Cannabis abuse, uncomplicated; F14.10 Cocaine abuse, uncomplicated; I25.10 Atherosclerotic heart disease of native coronary artery without angina pectoris; D69.6 Thrombocytopenia, unspecified; D63.1 Anemia in chronic kidney disease; E78.5 Hyperlipidemia, unspecified; E02 Subclinical iodine-deficiency hypothyroidism; Z79.01 Long term (current) use of anticoagulants; Z95.0 Presence of cardiac pacemaker
CPT/HCPCS: 36415; 71045; 80048; 80053; 80076; 81001; 82553; 83690; 83880; 84145; 84484; 85025; 85027; 93005; 94640; 94660; 96374; J1940; J2270; J7620; Q0163

== ENCOUNTER 2019-03-05 21:09 | Inpatient (IN) | payer MEDICARE, MEDICAID ==
[2019-03-05 21:46] LABS: #Basophils 0.1 thou/uL (0.0-0.2); #Eosinphils 0.2 thou/uL (0.0-0.7); #Lymphocytes 1.9 thou/uL (1.20-3.40); %Basophils 0.8 % (0.0-1.0); %Eosinophils 2.6 % (0.0-10.0); %Lymphocytes 20.3 % (21.0-51.0); %Neutrophils 65.3 % (42.0-75.0); Hemoglobin 14.2 g/dL (14.0-18.0); Mean Corpuscular HGB CONC 33.1 g/dL (32.0-36.0); Mean Corpuscular Hemoglobin 34.7 pg (27.0-31.0); Mean Platelet Volume 8.4 fL (7.4-10.4); Platelet Count 121 thou/uL (130-400); RBC Distribution Width 14.4 % (11.5-14.5); Red Blood Cell (RBC) Count 4.08 mill/uL (4.70-6.10); White Blood Cell (WBC) Count 9.1 thou/uL (4.8-10.8)
[2019-03-05 22:05] LABS: ALT (SGPT) 14 U/L (8-55); AST (SGOT) 25 U/L (5-34); Albumin 3.6 g/dL (3.5-5.0); Alkaline Phosphatase 124 U/L (40-110); Anion Gap 13 mmol/L (10-20); BUN (Urea Nitrogen) 34 mg/dL (8.4-25.7); Calc. Creatinine Clearance 0 mL/min (70-130); Calcium 10.2 mg/dL (7.8-10.44); Carbon Dioxide 35 mmol/L (22-29); Chloride 93 mmol/L (98-107); Estimated GFR-MDRD 41; Globulin 4.1 g/dL (2.4-3.5); Glucose 112 mg/dL (70-105); Potassium 3.8 mmol/L (3.5-5.1); Protein, Total 7.7 g/dL (6.0-8.3); Sodium 137 mmol/L (136-145)
[2019-03-05 22:36] LABS: CKMB 3.6 ng/mL (0-6.6)
[2019-03-05] MEDS ORDERED: Furosemide 20 MG/2 ML VIAL ONE (22:46)
[2019-03-05] MEDS ORDERED: Nitroglycerin 2% Ointment 1 INCH/1 GM Packet ONE (22:46)
[2019-03-05] MEDS ORDERED: Furosemide 40 MG/4 ML VIAL ONE (22:46)
--- NOTE | 2019-03-05 22:48 | RAD ---
Portable chest: HISTORY: Chest pain COMPARISON: none FINDINGS:Cardiomegaly. Vascularity is upper normal but stable. AICD lead is unchanged. No infiltrate or effusion. No interval change. IMPRESSION: No acute finding
[2019-03-05 23:00] LABS: Magnesium 1.3 mg/dL (1.6-2.6)
[2019-03-05 23:11] LABS: Bilirubin Negative (Negative); Blood, Urine Negative (Negative); Clarity Clear (Clear); Glucose, Urine (Dipstick) Normal (Negative); Leukocyte Negative Leu/uL (Negative); Nitrite Negative (Negative); Protein, Urine (Dipstick) Negative (Neg-Trace); Urobilinogen Normal mg/dL (Less than 2)
[2019-03-06] MEDS ORDERED: Magnesium 2 GM/50 ML BAG (IN WATER) ONE (00:46)
--- NOTE | 2019-03-06 01:08 | PDOC.FPRHP ---
- History of Present Illness Chief Complaint: SOB History of Present Illness: Mr. Aldrich is a 58 y/o male with a PMH significant for frequent CHF exacerbations, CAD and COPD who presents to the ED for evaluation of SOB. He states that his SOB has been getting progressively worse, with associated symptoms of dry cough, VILLASEÑOR, PND and lower extremity edema. He denies any chest pain at this time, but states that he has frequent epigastric pain secondary to gastritis, which has been bothering him off and on for sometime. He has a pacemaker in place, which he thinks has been "beeping" lately. He states that his pacemaker has been place for several years, but has require at least 3 revisions. He denies any fevers, chills, worsening headaches, visual disturbances, N/V/D, feelings of being cold or clammy or syncopal episodes. Per ED staff, his pacemaker was interrogated and found to have several episodes of VTach on about February 26, but nothing more recent. ED Course: While in the ED the patient was found to have an elevated BNP at 2595 and a Troponin of .312, with a CXR that demonstrated mild vascular congestion without significant cardiopulmonary findings. EKG demonstrated ventricular pacing without evidence of ST-Segment elevation. - Allergies/Adverse Reactions Allergies Allergy/AdvReac Type Severity Reaction Status Date / Time iodine Allergy Mild Hives Verified 12/28/18 09:31 spironolactone Allergy Verified 12/28/18 09:31 - Home Medications Medication Instructions Recorded Confirmed Type Aspirin [Ecotrin Low Strength] 81 mg PO DAILY #0 tab 04/21/13 02/12/19 Rx Zolpidem Tartrate [Ambien] 10 mg PO HS PRN 08/20/18 02/12/19 History Apixaban [Eliquis] 5 mg PO BID #60 tab 11/05/18 02/12/19 Rx Carvedilol [Coreg] 3.125 mg PO BID #60 tab 11/05/18 02/12/19 Rx Sacubitril/Valsartan [Entresto 24 1 tab PO BID #60 tab 11/05/18 02/12/19 Rx mg-26 mg Tablet] Torsemide [Demadex] 20 mg PO DAILY #30 tab 11/05/18 02/12/19 Rx Amiodarone [Cordarone] 200 mg PO DAILY 12/01/18 02/12/19 History Atorvastatin Calcium 80 mg PO DAILY 30 Days #30 tablet 12/28/18 02/12/19 Rx Cyclobenzaprine [Flexeril] 10 mg PO PRN PRN 12/28/18 02/12/19 History Dexlansoprazole [Dexilant] 60 mg PO DAILY 12/28/18 02/12/19 History Fluticasone/Vilanterol [Breo 1 puff INH PRN PRN 12/28/18 02/12/19 History Ellipta] Furosemide [Lasix] 80 mg PO BID 12/28/18 02/12/19 History HYDROcodone/Acetaminophen 1 - 2 tab PO PRN PRN 12/28/18 02/12/19 History [Hydrocodone-Acetamin 10-325 mg] Iron,Carbonyl [Feosol] 325 mg PO DAILY 12/28/18 02/12/19 History Magnesium 200 mg PO DAILY 12/28/18 02/12/19 History Metolazone [Zaroxolyn] 5 mg PO PRN PRN 12/28/18 02/12/19 History Naproxen 500 mg PO PRN PRN 12/28/18 02/12/19 History Probenecid/Colchicine 1 tab PO BID 12/28/18 02/12/19 History [Probenecid-Colchicine Tablet] Oseltamivir [Tamiflu] 75 mg PO BID #4 cap 01/16/19 02/12/19 Rx Sacubitril/Valsartan [Entresto 24 1 tab PO BID #60 tab 02/16/19 Rx mg-26 mg Tablet] Sucralfate [Carafate] 1 gm PO ACHS #30 tab 02/16/19 Rx - History PMHx: CHF, CAD, HTN, TIA, CKD PSHx: Multiple Pacemaker Placements / Revision FHx: Strong family histor for HTN, CAD and SD Social: Patient admits to social EtOH abuse and smoking 5-6 cigarettes daily. He denies drug abuse, but chart review revealed a history of methamphetamine abuse. Code: Full - Review of Systems General: reports: fatigue. denies: fever/chills, weight/appetite/sleep changes , night sweats Eyes: reports: vision changes (Upon further questioning, the patient admitted to chronic vision changes.) ENT: denies: nasal congestion, rhinorrhea Respiratory: reports: cough, shortness of breath, exercise intolerance. denies : congestion Cardiovascular: reports: edema, paroxysmal nocturnal dyspnea. denies: chest pain, palpitation Gastrointestinal: reports: abdominal pain (Patient admits to mild epigastric pain, chronic). denies: nausea, vomiting, diarrhea Genitourinary: denies: dysuria, polyuria Skin: denies: rashes, lesions Musculoskeletal: reports: swelling. denies: pain Neurological: denies: syncope - Vital signs BP: [125/84] HR: [79] RR: [20] Tmax: [97] Pox: [96]% on [Room Air] Wt: [] - Physical Exam Constitutional: awake, alert and oriented, well developed, other (Patient appeared uncomfortable while seated on his hospital bed - continued to change positions to remain more upright.) HEENT: normocephalic and atraumatic, PERRLA, EOMI, conjunctiva clear, no scleral icterus, grossly normal vision, grossly normal hearing, normal nasal mucosa, MMM, oropharynx clear Neck: supple, FROM, trachea midline, no LAD, no JVD Chest: no-tender to palpation, no lesions Heart: RRR, normal S1/S2, no murmurs/rubs/gallops, pulses present, other (+2 pitting edema on the lower extremities to the level of the mid-tibia) Lungs: CTAB, no retractions, other (Scant expiratory wheezes with intermittent crackles) Abdomen: soft, bowel sounds present, no masses/distention, no hernias, other ( Mild epigastric TTP) Musculoskeletal: normal structure, normal tone, ROM grossly normal Neurological: no focal deficit Skin: no rash/lesions, capillary refill <2 seconds, no jaundice Heme/Lymphatic: no unusual bruising or bleeding, no purpura, no petechia Psychiatric: normal mood and affect, intact recent and remote memory FMR H&P: Results - Labs Result Diagrams: 03/06/19 05:50 03/06/19 04:05 Lab results: WBC 9.1 thou/uL (4.8-10.8) 03/05/19 21:35 Hgb 14.2 g/dL (14.0-18.0) 03/05/19 21:35 Hct 42.8 % (42.0-52.0) 03/05/19 21:35 MCV 105.0 fL (78.0-98.0) H 03/05/19 21:35 Plt Count 121 thou/uL (130-400) L 03/05/19 21:35 Neutrophils % 65.3 % (42.0-75.0) 03/05/19 21:35 Sodium 137 mmol/L (136-145) 03/05/19 21:35 Potassium 3.8 mmol/L (3.5-5.1) 03/05/19 21:35 Chloride 93 mmol/L (98-107) L 03/05/19 21:35 Carbon Dioxide 35 mmol/L (22-29) H 03/05/19 21:35 BUN 34 mg/dL (8.4-25.7) H 03/05/19 21:35 Creatinine 2.04 mg/dL (0.7-1.3) H 03/05/19 21:35 Glucose 112 mg/dL (70-105) H 03/05/19 21:35 Calcium 10.2 mg/dL (7.8-10.44) 03/05/19 21:35 Total Bilirubin 4.0 mg/dL (0.2-1.2) H 03/05/19 21:35 AST 25 U/L (5-34) 03/05/19 21:35 ALT 14 U/L (8-55) 03/05/19 21:35 Alkaline Phosphatase 124 U/L (40-110) H 03/05/19 21:35 CK-MB (CK-2) 3.6 ng/mL (0-6.6) 03/05/19 21:35 B-Natriuretic Peptide 2595.3 pg/mL (0-100) H 03/05/19 21:35 Serum Total Protein 7.7 g/dL (6.0-8.3) 03/05/19 21:35 Albumin 3.6 g/dL (3.5-5.0) 03/05/19 21:35 Lipase 22 U/L (8-78) 03/05/19 21:35 Urine Ketones Negative mg/dL (Negative) 03/05/19 23:03 Urine Blood Negative (Negative) 03/05/19 23:03 Urine Nitrite Negative (Negative) 03/05/19 23:03 Ur Leukocyte Esterase Negative Froylan/uL (Negative) 03/05/19 23:03 - EKG Interpretation EKG: Ventricular pacing without evidence of ST-Segment elevation - Radiology Interpretation Chest x-ray Status: report reviewed by me (Mild vascular congestion) FMR H&P: A/P - Problem List (1) Acute exacerbation of CHF (congestive heart failure) Current Visit: No Status: Acute Code(s): I50.9 - HEART FAILURE, UNSPECIFIED Qualifiers: Heart failure type: systolic Qualified Code(s): I50.23 - Acute on chronic systolic (congestive) heart failure (2) Alcoholic cirrhosis of liver Current Visit: No Status: Chronic Code(s): K70.30 - ALCOHOLIC CIRRHOSIS OF LIVER WITHOUT ASCITES (3) CKD (chronic kidney disease) stage 3, GFR 30-59 ml/min Current Visit: No Status: Chronic (4) Hypertension Current Visit: No Status: Chronic Priority: Medium Code(s): I10 - ESSENTIAL (PRIMARY) HYPERTENSION Qualifiers: Hypertension type: essential hypertension Qualified Code(s): I10 - Essential (primary) hypertension - Plan Patient is a 58 y/o male with a PMH of CHF, CAD, HTN, TIA and CKD currently admitted to the Telemetry Floor for CHF Exacerbation. 1. CHF Exacerbation -HPI strongly suspicious for acute exacerbation of CHF -Chart review reveals multiple similar presentations -Patient admits to poor medication compliance - unsure of current Lasix dosage -Elevated BNP with unremarkable EKG -Classic symptoms of sub-acute cough, VILLASEÑOR, PND and lower extremity edema -s/p Lasix x1 in the ED with subsequent increase in urination - will continue at x2 home dose -Trend troponins and continue to evaluate for worrisome signs of ACS 2. CAD -Will increase home statin dosage -Heart Healthy Diet incl. Low Sodium 3. HTN -BP appears to be at acceptable level -Continue home medication regimen 4. Hx of TIA -Patient denies symptoms consistent with TIA -Unremarkable physical exam -Continue to monitor 5. CKD -Cr: 2.04 on 03/06 -Initiate fluid diuresis and monitor Cr via AM labs -Adjust Lasix dosage as needed if JOSE A becomes evident 6. Hypomagnesemia -Supplement with PO Mg 7. COPD -DuoNebs Q4H PRN -Consider supplemental O2 if required Code: Full Diet: Heart Healthy incl. Low Soidum (< 1500 ml Daily) Activity: Ad chip VTE PPx: Lovenox 40 mg SC daily w/ SCDs Dispo: Patient is currently admitted to the Telemetry Floor for CHF exacerbation. Continue fluid diuresis, trend troponins, and manage additional chronic medical problems. Trend I&O and daily weights as well as O2 status. Expected LOS > 48H. FMR H&P: Upper Level - Pertinent history 58 y/o M PMHx HFrEF (15-20%), HTN, Nonischemic cardiomyopathy, HLD, tobacco abuse, chronic a-fib presents to the ED complaining of a 2 day h/o worsened SOB , VILLASEÑOR, Orthopnea, PND, LE swelling, abdominal distension. He reports that he is not compliant with fluid restriction. He was recently d/cd from the hospital for similar symptoms about 2 weeks ago. He reports medication compliance. He also reports a cough and continues to smoke about 6 cigarettes per day. He states he no longer has any inhalers or nebs for his COPD. He reports some pain in his R ribs from coughing, but no central chest pain. - Pertinent findings BP: 121/95, MAP: 103, Pulse: 77, Resp: 17, Temp: 97.6 (Oral), Pain: 10, O2 sat: 96 on (Room Air) PE: Gen - alert, oriented, sitting straight up in the bed appears in mild respiratory distress HEENT - MMM CV - RRR, no murmurs Lungs - bilateral crackles, no wheezes, good air movement Abd - distended, NTTP Ext - 1+ Pitting edema in BLE Labs: BUN 34, Cr 2.04, GFR 41, Trop 0.312, BNP 2595 CXR: Cardiomegaly, vascularity in upper limit of normal - Plan Date/Time: 03/06/19 0044 ITeressa MD, PGY-3, have evaluated this patient and agree with findings/ plan as outlined by lab intern resident. Pertinent changes/additions are listed here. Acute HFrEF Exacerbation Pt with symptoms of CHF exacerbation, known EF 15-20% in 08/2018. -Admit to tele -Lasix 80mg IV BID -Add on metolazone if not adequately diuresing -Fluid restrict -Daily weights -Strict I/O's -Repeat echo -Continue home entresto and coreg NSTEMI, likely demand Pt with baseline trop 0.2, now it is 0.312. Pt denies any active chest pain and EKG with no signs of ST changes. He had a clean cath in 01/13/19. -Will trend trops and repeat EKG for any new chest pain -Monitor on tele -Consider consulting Dr. Cuevas if continues to uptrend. JOSE A on CKD Cr 2.04 -Continue to diurese and monitor closely -Avoid other nephrotoxic agents Chronic a-fib Pacer/AICD in place -Continue eliquis, coreg, amiodarone HTN -Continue home coreg HLD -Continue home atorvastatin Tobacco Abuse -[facility] on cessation Dispo: Admit to tele LOS: Likely greater than 2 days Addendum - Attending - Attending Attestation Date/Time: 03/06/19 1350 I personally evaluated the patient and discussed the management with team. I agree with the History, Examination, Assessment and Plan documented above with any addition or exceptions noted below. A on C HF. Lasix, strict I/Os.
[2019-03-06] MEDS ORDERED: Nicotine 14 MG PATCH TD SCH (02:00)
[2019-03-06 04:48] LABS: ALT (SGPT) 12 U/L (8-55); AST (SGOT) 25 U/L (5-34); Albumin 3.4 g/dL (3.5-5.0); Alkaline Phosphatase 117 U/L (40-110); Anion Gap 15 mmol/L (10-20); BUN (Urea Nitrogen) 35 mg/dL (8.4-25.7); Bilirubin, Total 3.8 mg/dL (0.2-1.2); Calc. Creatinine Clearance 0 mL/min (70-130); Calcium 9.9 mg/dL (7.8-10.44); Carbon Dioxide 31 mmol/L (22-29); Chloride 93 mmol/L (98-107); Estimated GFR-MDRD 45; Glucose 134 mg/dL (70-105); Protein, Total 7.4 g/dL (6.0-8.3); Sodium 136 mmol/L (136-145)
[2019-03-06 05:01] LABS: Troponin I 0.258 ng/mL (< 0.028)
[2019-03-06 06:06] LABS: Hemoglobin 13.7 g/dL (14.0-18.0); Mean Corpuscular HGB CONC 33.3 g/dL (32.0-36.0); Mean Corpuscular Hemoglobin 34.3 pg (27.0-31.0); Mean Platelet Volume 8.8 fL (7.4-10.4); Platelet Count 104 thou/uL (130-400); RBC Distribution Width 14.6 % (11.5-14.5); Red Blood Cell (RBC) Count 3.99 mill/uL (4.70-6.10); White Blood Cell (WBC) Count 9.4 thou/uL (4.8-10.8)
[2019-03-06 06:09] LABS: #Basophils 0.1 thou/uL (0.0-0.2); #Eosinphils 0.4 thou/uL (0.0-0.7); #Lymphocytes 2.2 thou/uL (1.20-3.40); #Monocytes 1.2 thou/uL (0.11-0.59); #Neutrophils 5.6 thou/uL (1.40-6.50); %Basophils 0.8 % (0.0-1.0); %Eosinophils 4.4 % (0.0-10.0); %Lymphocytes 22.9 % (21.0-51.0); %Monocytes 12.7 % (0.0-10.0); %Neutrophils 59.2 % (42.0-75.0)
[2019-03-06] MEDS ORDERED: Potassium Chloride 20 MEQ TAB PO SCH (06:30)
[2019-03-06] MEDS ORDERED: Potassium Chloride 40 MEQ in Sodium Chloride 0.9% 250 ML 250 ML IVPB SCH (06:30)
[2019-03-06 07:33] LABS: Troponin I 0.292 ng/mL (< 0.028)
[2019-03-06] MEDS ORDERED: Potassium Chloride 20 MEQ TAB ONE (08:22)
[2019-03-06] MEDS ORDERED: Furosemide 100 MG/10 ML VIAL ONE (08:23)
[2019-03-06] MEDS ORDERED: Enoxaparin Sodium 40 MG/0.4 ML SYRINGE SC SCH (09:00)
[2019-03-06] MEDS ORDERED: Aspirin 325 MG TAB PO SCH (09:00)
[2019-03-06] MEDS ORDERED: Aspirin Chewable 81 MG TAB ONE (09:46)
[2019-03-06] MEDS: Apixaban 5 MG TAB PO SCH ×2 (09:50→20:03)
[2019-03-06] MEDS: Carvedilol 3.125 MG TAB PO SCH ×2 (09:50→20:03)
[2019-03-06] MEDS: Magnesium Oxide 400 MG TAB PO SCH (09:50)
[2019-03-06] MEDS: Aspirin 81 mg Enteric Coated Tablet PO SCH (09:51)
[2019-03-06] MEDS: Amiodarone 200 MG TAB PO SCH (09:51)
[2019-03-06] MEDS ORDERED: Ondansetron PF 4 MG/2 ML Vial ONE (10:19)
[2019-03-06] MEDS ORDERED: Sucralfate 1 GM TAB PO SCH (11:30)
[2019-03-06] MEDS ORDERED: Ondansetron ORAL SOLN. 4 MG/5 ML UDCUP PO PRN (11:34)
[2019-03-06] MEDS ORDERED: Ondansetron PF 4 MG/2 ML Vial IVP PRN (11:34)
[2019-03-06] MEDS ORDERED: Lidocaine 2% Viscous Solution 20 ML, Aluminum & Magnesium Hydroxide 30 ML, Donnatal Eli... SSW SCH (11:45)
[2019-03-06 12:51] LABS: Troponin I 0.328 ng/mL (< 0.028)
[2019-03-06] MEDS: Furosemide 40 MG/4 ML VIAL SLOW IVP SCH ×2 (16:30→16:39)
[2019-03-06] MEDS: Famotidine 20 MG TAB PO SCH ×2 (16:31→20:03)
[2019-03-06 17:25] LABS: Critical Call Chem Troponin I RESULT DECREASING; Troponin I 0.313 ng/mL (< 0.028)
[2019-03-06 20:15] VITALS: BMI 28.0
[2019-03-06] MEDS ORDERED: Atorvastatin Calcium 40 MG TAB PO SCH (21:00)
--- NOTE | 2019-03-07 06:03 | PDOC.FM ---
- Subjective Subjective: He is having the same gnawing pain as he was having yesterday. He says the pain is currently a 10/10. It lasts for about 2-3 minutes and will occur every 10 minutes to hours later. He says it usually occurs before he eats. He does not do anything before it occurs. He says the GI cocktail makes it better. His last EGD was in 2010. Pain is worse after eating. He is not having SOB. He said the pain is nothing like his chest pain he has had in the past. - Objective MAR Reviewed: Yes Vital Signs & Weight: Vital Signs (12 hours) Temp Pulse Resp BP Pulse Ox 03/06/19 22:53 89 18 93 L 03/06/19 19:47 97.5 F L 67 20 116/79 96 Weight Weight 91.263 kg I&O: 03/05/19 03/06/19 03/07/19 06:59 06:59 06:59 Intake Total 360 Output Total 780 Balance -420 Result Diagrams: 03/07/19 07:54 03/07/19 07:53 Phys Exam - Physical Examination Constitutional: NAD HEENT: moist MMs, oral pharynx no lesions Neck: no JVD, supple, full ROM Respiratory: clear to auscultation bilateral Cardiovascular: RRR, no significant murmur Gastrointestinal: soft, non-tender, positive bowel sounds Musculoskeletal: no edema Neurological: normal sensation, moves all 4 limbs Psychiatric: normal affect Skin: no rash Dx/Plan (1) Acute exacerbation of CHF (congestive heart failure) Code(s): I50.9 - HEART FAILURE, UNSPECIFIED Status: Acute Qualifiers: Heart failure type: systolic Qualified Code(s): I50.23 - Acute on chronic systolic (congestive) heart failure (2) Chest pain Code(s): R07.9 - CHEST PAIN, UNSPECIFIED Status: Acute Qualifiers: Chest pain type: other chest pain Qualified Code(s): R07.89 - Other chest pain; R07.8 - Other chest pain (3) Elevated troponin Code(s): R74.8 - ABNORMAL LEVELS OF OTHER SERUM ENZYMES Status: Acute (4) GERD (gastroesophageal reflux disease) Code(s): K21.9 - GASTRO-ESOPHAGEAL REFLUX DISEASE WITHOUT ESOPHAGITIS Status: Chronic Qualifiers: Esophagitis presence: without esophagitis Qualified Code(s): K21.9 - Gastro -esophageal reflux disease without esophagitis (5) HLD (hyperlipidemia) Code(s): E78.5 - HYPERLIPIDEMIA, UNSPECIFIED Status: Acute (6) Acute kidney injury superimposed on CKD Code(s): N17.9 - ACUTE KIDNEY FAILURE, UNSPECIFIED; N18.9 - CHRONIC KIDNEY DISEASE, UNSPECIFIED Status: Acute (7) LIT (obstructive sleep apnea) Code(s): G47.33 - OBSTRUCTIVE SLEEP APNEA (ADULT) (PEDIATRIC) Status: Acute (8) Hypertension Code(s): I10 - ESSENTIAL (PRIMARY) HYPERTENSION Status: Chronic Qualifiers: Hypertension type: essential hypertension Qualified Code(s): I10 - Essential (primary) hypertension - Plan Plan: Patient is a 58 y/o male with a PMH of CHF, CAD, HTN, TIA and CKD currently admitted to the Telemetry Floor for CHF Exacerbation. 1. CHF Exacerbation Pt with symptoms of CHF exacerbation (cough, VILLASEÑOR, PND and lower extremity edema) , known EF 15-20% in 08/2018. * Lasix 80mg IV BID * Required metolazone after not diuresing during last admission * Elevated BNP with unchanged EKG * Fluid restrict with Daily weights and Strict I/O's * Echo completed, results pending * Continue home entresto and coreg 2. NSTEMI: Elevated Troponins 2/2 Demand Ischemia Pt with baseline trop 0.2, now it is 0.312. Pt denies any active chest pain and EKG with no signs of ST changes. He had a clean cath in 01/13/19 * Trops: 0.312 > 0.292 > 0.328 > 0.313 * Due to downtrend of trops and near baseline as well as no pain, will continue to monitor but with clean cath no intervention needed at this time. * Currently on ASA & Statin * Heart Healthy Diet incl. Low Sodium 3. JOSE A on CKD Cr: 2.04> 1.87 * Baseline: 1.5 * Continue to diurese * Will monitor * Adjust Lasix dosage as needed if JOSE A becomes evident * Avoid other nephrotoxic agents 4. Chronic a-fib Pacer/AICD in place * Continue eliquis, coreg, amiodarone 5. HTN * BP stable * Continue home Coreg 6. Hx of TIA Patient denies symptoms consistent with TIA * Will monitor 7. Hypomagnesemia Ma.3 * Supplement with PO Mg * Recheck on 03/08 8. COPD * DuoNebs Q4H PRN * Consider supplemental O2 if required 9. LIT * CPAP for use at night ordered 10. Tobacco Abuse * Counseled on cessation says he has cut down, but he does not want to quit at this time. 11. HLD * Continue home atorvastatin 12. Hypokalemia K: 3.0 * Replaced yesterday * Will monitor & replace as needed * Start daily regimen 13. GERD * Currently on Protonix & GI cocktail * Ordering a Stool H. Pylori * Last EGD 2010 * Counseled on following up outpt to get another scope Code: Full Diet: HHLso (< 1500 ml Daily) Activity: Ad chip VTE PPx: Eliquis Dispo: Telemetry Inpatient, continue fluid diuresis. Will trend I&O and daily weights as well as O2 status. Expected LOS > 48H. Addendum - Attending - Attending Attestation Date/Time: 03/07/19 4624 I personally evaluated the patient and discussed the management with the team. I agree with the History, Examination, Assessment and Plan documented above with any addition or exceptions noted below. Patient likely nonadherent to medications as likely etiology. He is euvolemic today and looks wonderful. Workup for BLANCO pain. AD unlikely, on PPI, no h/h change will monitor and likely d/c this PM.
[2019-03-07] MEDS ORDERED: Lidocaine 2% Viscous Solution 10 ML, Aluminum & Magnesium Hydroxide 30 ML SSW SCH (08:15)
[2019-03-07 08:37] LABS: #Basophils 0.1 thou/uL (0.0-0.2); #Eosinphils 0.2 thou/uL (0.0-0.7); #Monocytes 0.9 thou/uL (0.11-0.59); %Eosinophils 2.3 % (0.0-10.0); %Lymphocytes 21.8 % (21.0-51.0); Hemoglobin 13.3 g/dL (14.0-18.0); Mean Corpuscular HGB CONC 31.6 g/dL (32.0-36.0); Mean Corpuscular Hemoglobin 33.5 pg (27.0-31.0); Mean Platelet Volume 9.3 fL (7.4-10.4); Platelet Count 116 thou/uL (130-400); RBC Distribution Width 14.4 % (11.5-14.5); Red Blood Cell (RBC) Count 3.97 mill/uL (4.70-6.10); White Blood Cell (WBC) Count 9.2 thou/uL (4.8-10.8)
[2019-03-07 08:43] LABS: Anion Gap 17 mmol/L (10-20); BUN (Urea Nitrogen) 36 mg/dL (8.4-25.7); Calc. Creatinine Clearance 60 mL/min (70-130); Calcium 10.3 mg/dL (7.8-10.44); Carbon Dioxide 28 mmol/L (22-29); Chloride 94 mmol/L (98-107); Estimated GFR-MDRD 50; Glucose 78 mg/dL (70-105); Potassium 4.5 mmol/L (3.5-5.1); Sodium 134 mmol/L (136-145)
[2019-03-07] MEDS: Apixaban 5 MG TAB PO SCH (10:23)
[2019-03-07] MEDS: Carvedilol 3.125 MG TAB PO SCH (10:23)
[2019-03-07] MEDS: Magnesium Oxide 400 MG TAB PO SCH (10:23)
[2019-03-07] MEDS: Aspirin 81 mg Enteric Coated Tablet PO SCH (10:23)
[2019-03-07] MEDS: Amiodarone 200 MG TAB PO SCH (10:23)
[2019-03-07] MEDS: Famotidine 20 MG TAB PO SCH (10:24)
[2019-03-07] MEDS: Furosemide 40 MG/4 ML VIAL SLOW IVP SCH (10:25)
[2019-03-07] MEDS ORDERED: Furosemide 40 MG/4 ML VIAL SLOW IVP SCH (16:00)
[2019-03-07 16:10] VITALS: BP 118/78; TEMP 97.5
[2019-03-08] MEDS ORDERED: Furosemide 40 MG/4 ML VIAL SLOW IVP SCH (06:00)
[2019-03-08] MEDS ORDERED: Potassium Chloride 20 MEQ TAB PO SCH (08:00)
[2019-03-10 18:08] LABS: H. pylori IgA ABS Greater than 35.0 units (0.0-8.9); H. pylori IgG ABS 9.17 (0.00-0.79); H. pylori IgM ABS Less than 9.0 units (0.0-8.9)
== END 2019-03-07 16:42 | disposition home or self-care (01) | DRG 280 ==
LOC: ERS 21:09 → ERHOLD 03-06 00:39 → OBSVTOIN 03-06 12:20 → 2NO 03-06 14:17
PROVIDERS: ADMIT Student in an Organized Health Care Education/Training Program; ATTEND Student in an Organized Health Care Education/Training Program
DX: I13.0 Hypertensive heart and chronic kidney disease with heart failure and stage 1 through stage 4 chronic kidney disease, or unspecified chronic kidney disease (principal); I50.21 Acute systolic (congestive) heart failure; I21.A1 Myocardial infarction type 2; I48.20 Chronic atrial fibrillation, unspecified; N17.9 Acute kidney failure, unspecified; I25.10 Atherosclerotic heart disease of native coronary artery without angina pectoris; E83.42 Hypomagnesemia; J44.9 Chronic obstructive pulmonary disease, unspecified; N18.3 Chronic kidney disease, stage 3 (moderate); I42.8 Other cardiomyopathies; E78.5 Hyperlipidemia, unspecified; K74.60 Unspecified cirrhosis of liver; F17.210 Nicotine dependence, cigarettes, uncomplicated; F10.10 Alcohol abuse, uncomplicated; F15.10 Other stimulant abuse, uncomplicated; E87.5 Hyperkalemia; K21.9 Gastro-esophageal reflux disease without esophagitis; G47.33 Obstructive sleep apnea (adult) (pediatric); D63.1 Anemia in chronic kidney disease; M10.9 Gout, unspecified; F12.10 Cannabis abuse, uncomplicated; Z86.73 Personal history of transient ischemic attack (TIA), and cerebral infarction without residual deficits; Z79.01 Long term (current) use of anticoagulants; Z95.0 Presence of cardiac pacemaker; Z88.8 Allergy status to other drugs, medicaments and biological substances
CPT/HCPCS: 36415; 71045; 80048; 80053; 81003; 82553; 83690; 83735; 83880; 84443; 84484; 85025; 93005; 93306; 94640; 94660; J1940; J2405; J3475; J3480; J7050; J7620

== ENCOUNTER 2019-03-08 09:10 | Emergency (ER) | payer MEDICARE, MEDICAID ==
[2019-03-08] MEDS ORDERED: Ondansetron PF 4 MG/2 ML Vial ONE (09:46)
[2019-03-08] MEDS ORDERED: Morphine 4 MG/ML VIAL ONE (09:46)
[2019-03-08 10:02] LABS: #Eosinphils 0.2 thou/uL (0.0-0.7); #Lymphocytes 2.7 thou/uL (1.20-3.40); #Monocytes 0.9 thou/uL (0.11-0.59); #Neutrophils 5.1 thou/uL (1.40-6.50); %Basophils 0.4 % (0.0-1.0); %Eosinophils 2.7 % (0.0-10.0); %Lymphocytes 30.6 % (21.0-51.0); %Monocytes 9.7 % (0.0-10.0); %Neutrophils 56.6 % (42.0-75.0); Hemoglobin 14.3 g/dL (14.0-18.0); Mean Corpuscular HGB CONC 33.4 g/dL (32.0-36.0); Mean Corpuscular Hemoglobin 35.3 pg (27.0-31.0); Platelet Count 123 thou/uL (130-400); RBC Distribution Width 14.5 % (11.5-14.5); Red Blood Cell (RBC) Count 4.04 mill/uL (4.70-6.10); White Blood Cell (WBC) Count 8.9 thou/uL (4.8-10.8)
--- NOTE | 2019-03-08 10:02 | RAD ---
EXAM: Portable chest PROVIDED CLINICAL HISTORY: Chest pain COMPARISON: 03/05/2019 FINDINGS: Cardiac silhouette remains enlarged. Right subclavian cardiac pacing device is redemonstrated. No foc al consolidation, pleural fluid or pneumothorax evident. IMPRESSION: No evidence for an acute cardiopulmonary process.
[2019-03-08 10:17] LABS: ALT (SGPT) 15 U/L (8-55); AST (SGOT) 26 U/L (5-34); Albumin 3.7 g/dL (3.5-5.0); Alkaline Phosphatase 126 U/L (40-110); Anion Gap 15 mmol/L (10-20); BUN (Urea Nitrogen) 36 mg/dL (8.4-25.7); Calc. Creatinine Clearance 0 mL/min (70-130); Calcium 10.3 mg/dL (7.8-10.44); Carbon Dioxide 31 mmol/L (22-29); Chloride 91 mmol/L (98-107); Estimated GFR-MDRD 41; Globulin 4.3 g/dL (2.4-3.5); Glucose 86 mg/dL (70-105); Lipase 18 U/L (8-78); Potassium 4.2 mmol/L (3.5-5.1); Sodium 133 mmol/L (136-145)
[2019-03-08 10:39] LABS: CKMB 3.7 ng/mL (0-6.6)
[2019-03-08] MEDS ORDERED: Famotidine/PF 20 mg/2ml Vial ONE (11:26)
[2019-03-08] MEDS ORDERED: diphenhydrAMINE 50 MG/ML VIAL ONE (11:26)
[2019-03-08] MEDS ORDERED: methylPREDNISolone Sod Succ/PF 125 MG/2 ML VIAL ONE (11:26)
[2019-03-08] MEDS ORDERED: Iopamidol 370 76% 50 ML VIAL FS ONE (11:48)
[2019-03-08] MEDS ORDERED: Iopamidol-370 76% 500 ML 1 ML ONE (11:48)
--- NOTE | 2019-03-08 12:54 | CT ---
CT ABDOMEN AND PELVIS WITH IV AND ORAL CONTRAST: HISTORY: Abdominal pain. COMPARISON: 11/05/2013 FINDINGS: Small amount of right pleural fluid is now apparent with mild atelectasis at the right lung base. Hea rt is enlarged. Oral contrast material is present within the lower esophagus. Reflux of IV contrast i nto the hepatic veins. Hepatic veins and IVC are distended. There is a small amount of free fluid within the abdomen and pelvis. No evidence of bowel obstruction or inflammation. Appendix is not inflamed. Mild stranding throughout the intra-abdominal fat is similar in appearance to the previous exam. Nons pecific lymph nodes throughout the abdomen and pelvis. The urinary bladder is decompressed. Prominent calcification throughout the arterial structures. There are prominent degenerative changes of the lumbar spine. Bilateral spondylolysis and minimal spondylolisthesis at the lumbosacral junctio n. IMPRESSION: 1. Chronic type findings of congestive heart failure, including a small amount of ascites and right p leural fluid. 2. No active inflammatory or evidence of bowel obstruction. 3. Atherosclerosis. 4. Gastroesophageal reflux. POS: BST
== END 2019-03-08 14:20 | disposition home or self-care (01) ==
LOC: ERS 09:10
DX: I88.0 Nonspecific mesenteric lymphadenitis (principal); I13.10 Hypertensive heart and chronic kidney disease without heart failure, with stage 1 through stage 4 chronic kidney disease, or unspecified chronic kidney disease; I50.9 Heart failure, unspecified; N18.9 Chronic kidney disease, unspecified; I48.91 Unspecified atrial fibrillation; D50.9 Iron deficiency anemia, unspecified; G47.30 Sleep apnea, unspecified; K21.9 Gastro-esophageal reflux disease without esophagitis; F17.210 Nicotine dependence, cigarettes, uncomplicated; M10.9 Gout, unspecified; Z79.82 Long term (current) use of aspirin; Z79.891 Long term (current) use of opiate analgesic; Z79.899 Other long term (current) drug therapy
CPT/HCPCS: 71045; 74177; 80053; 82553; 83690; 83880; 84484; 85025; 93005; 96361; 96374; 96375; J1200; J2270; J2405; J2930; Q9967; S0028

== ENCOUNTER 2019-03-17 01:30 | Emergency (ER) | payer MEDICARE, MEDICAID ==
[2019-03-17 01:55] LABS: #Basophils 0.1 thou/uL (0.0-0.2); #Eosinphils 0.3 thou/uL (0.0-0.7); #Lymphocytes 3.2 thou/uL (1.20-3.40); #Monocytes 1.4 thou/uL (0.11-0.59); #Neutrophils 8.1 thou/uL (1.40-6.50); %Basophils 0.6 % (0.0-1.0); %Eosinophils 2.1 % (0.0-10.0); %Lymphocytes 24.5 % (21.0-51.0); %Monocytes 10.7 % (0.0-10.0); %Neutrophils 62.1 % (42.0-75.0); Hemoglobin 14.1 g/dL (14.0-18.0); Mean Corpuscular HGB CONC 33.4 g/dL (32.0-36.0); Mean Corpuscular Hemoglobin 34.7 pg (27.0-31.0); Mean Platelet Volume 8.5 fL (7.4-10.4); Platelet Count 123 thou/uL (130-400); RBC Distribution Width 14.4 % (11.5-14.5); Red Blood Cell (RBC) Count 4.07 mill/uL (4.70-6.10); White Blood Cell (WBC) Count 13.1 thou/uL (4.8-10.8)
[2019-03-17 02:17] LABS: ALT (SGPT) 20 U/L (8-55); AST (SGOT) 39 U/L (5-34); Albumin 3.6 g/dL (3.5-5.0); Alkaline Phosphatase 147 U/L (40-110); Anion Gap 16 mmol/L (10-20); BUN (Urea Nitrogen) 20 mg/dL (8.4-25.7); Bilirubin, Total 4.1 mg/dL (0.2-1.2); Calc. Creatinine Clearance 0 mL/min (70-130); Calcium 9.7 mg/dL (7.8-10.44); Carbon Dioxide 23 mmol/L (22-29); Chloride 103 mmol/L (98-107); Estimated GFR-MDRD 75; Globulin 4.2 g/dL (2.4-3.5); Glucose 86 mg/dL (70-105); Potassium 3.7 mmol/L (3.5-5.1); Protein, Total 7.8 g/dL (6.0-8.3); Sodium 138 mmol/L (136-145)
[2019-03-17 02:38] LABS: CKMB 3.5 ng/mL (0-6.6)
[2019-03-17] MEDS ORDERED: Furosemide 40 MG/4 ML VIAL ONE (02:39)
--- NOTE | 2019-03-17 07:36 | RAD ---
EXAM: Single view of the chest HISTORY: Dyspnea COMPARISON: 03/08/2019 FINDINGS: Single view of the chest shows an enlarged but stable cardiomediastinal silhouette. The pa cemaker is unchanged in position. There is no evidence of consolidation, mass, or pleural effusion. The bones are unremarkable. IMPRESSION: No evidence of acute cardiopulmonary disease
== END 2019-03-17 03:56 | disposition home or self-care (01) ==
LOC: ERS 01:30
DX: J44.1 Chronic obstructive pulmonary disease with (acute) exacerbation (principal); I11.0 Hypertensive heart disease with heart failure; I50.9 Heart failure, unspecified; I49.9 Cardiac arrhythmia, unspecified; I48.91 Unspecified atrial fibrillation; D50.9 Iron deficiency anemia, unspecified; K21.9 Gastro-esophageal reflux disease without esophagitis; F17.210 Nicotine dependence, cigarettes, uncomplicated; Z71.6 Tobacco abuse counseling; Z79.899 Other long term (current) drug therapy; Z79.01 Long term (current) use of anticoagulants
CPT/HCPCS: 36415; 71045; 80053; 82553; 83880; 84484; 85025; 93005; 94660; 96374; 99406; J1940

== ENCOUNTER 2019-03-18 03:29 | Emergency (ER) | payer MEDICARE, MEDICAID ==
[2019-03-18 04:06] LABS: #Basophils 0.1 thou/uL (0.0-0.2); #Eosinphils 0.2 thou/uL (0.0-0.7); #Lymphocytes 2.2 thou/uL (1.20-3.40); #Monocytes 1.2 thou/uL (0.11-0.59); #Neutrophils 6.6 thou/uL (1.40-6.50); %Basophils 1.4 % (0.0-1.0); %Eosinophils 2.1 % (0.0-10.0); %Lymphocytes 21.6 % (21.0-51.0); %Monocytes 11.5 % (0.0-10.0); %Neutrophils 63.4 % (42.0-75.0); Hemoglobin 13.4 g/dL (14.0-18.0); Mean Corpuscular HGB CONC 29.2 g/dL (32.0-36.0); Mean Corpuscular Hemoglobin 30.8 pg (27.0-31.0); Mean Platelet Volume 8.7 fL (7.4-10.4); Platelet Count 130 thou/uL (130-400); RBC Distribution Width 14.5 % (11.5-14.5); Red Blood Cell (RBC) Count 4.36 mill/uL (4.70-6.10); White Blood Cell (WBC) Count 10.4 thou/uL (4.8-10.8)
[2019-03-18 04:26] LABS: ALT (SGPT) 23 U/L (8-55); AST (SGOT) 39 U/L (5-34); Albumin 3.6 g/dL (3.5-5.0); Alkaline Phosphatase 139 U/L (40-110); Anion Gap 15 mmol/L (10-20); BUN (Urea Nitrogen) 21 mg/dL (8.4-25.7); Bilirubin, Total 4.4 mg/dL (0.2-1.2); Calc. Creatinine Clearance 0 mL/min (70-130); Calcium 9.7 mg/dL (7.8-10.44); Carbon Dioxide 26 mmol/L (22-29); Chloride 102 mmol/L (98-107); Estimated GFR-MDRD 63; Globulin 4.2 g/dL (2.4-3.5); Glucose 84 mg/dL (70-105); Lipase 18 U/L (8-78); Potassium 3.6 mmol/L (3.5-5.1); Protein, Total 7.8 g/dL (6.0-8.3); Sodium 139 mmol/L (136-145)
[2019-03-18] MEDS ORDERED: Ketorolac Tromethamine 60 MG/2 ML VIAL ONE (05:02)
--- NOTE | 2019-03-18 08:37 | CT ---
PRELIMINARY REPORT/[facility]/AFTER HOURS PROCEDURE CT SCAN ABDOMEN AND PELVIS WITHOUT IV CONTRAST: HISTORY: Upper abdomen pain today with nausea and vomiting. TECHNIQUE: Axial images were performed with multiplanar reconstructions without IV contrast material. The patie nt was not given oral contrast material. COMPARISON: None. FINDINGS: Small RIGHT pleural effusion. Moderate cardiomegaly with pacemaker leads in the RIGHT heart. Liver, spleen, adrenals, and pancreas show no significant abnormality. Kidneys show no masses, urinary tract stones, or obstructive uropathy. A 2 cm stone in the gallbladder with no definite inflammation and normal size biliary tree. Small amount of ascites upper abdomen and no pneumoperitoneum. Moderate atherosclerosis aorta. No lymphadenopathy. No bowel dilatation or inflammation and normal appendix. Pelvis shows small amount of fluid rectovesical pouch. No pelvic masses and normal urinary bladder. No acute bony abnormality. IMPRESSION: 1. Cholelithiasis. 2. Some ascites in the abdomen and pelvis with the etiology not apparent from the study. 3. Small RIGHT pleural effusion. 4. Cardiomegaly. 5. No other significant abnormality identified. ELECTRONICALLY SIGNED BY: Solo Nogueira MD Mar 18, 2019 5:18:43 AM [facility] This report is intended for review by the ordering physician only, in accordance of law. If you recei ve this report in error, please call [facility] at [phone]. FINAL REPORT CT ABDOMEN AND PELVIS WITHOUT CONTRAST: I agree with the preliminary report given by Dr. Hugo Nogueira of [facility]. CODE QA POS: [facility]
== END 2019-03-18 05:44 | disposition home or self-care (01) ==
LOC: ERS 03:29
DX: K80.20 Calculus of gallbladder without cholecystitis without obstruction (principal); I11.0 Hypertensive heart disease with heart failure; I50.9 Heart failure, unspecified; E87.5 Hyperkalemia; I48.91 Unspecified atrial fibrillation; I34.1 Nonrheumatic mitral (valve) prolapse; F17.210 Nicotine dependence, cigarettes, uncomplicated; K21.9 Gastro-esophageal reflux disease without esophagitis; I49.9 Cardiac arrhythmia, unspecified; M10.9 Gout, unspecified; D50.9 Iron deficiency anemia, unspecified; Z79.891 Long term (current) use of opiate analgesic; Z79.899 Other long term (current) drug therapy; Z79.82 Long term (current) use of aspirin
CPT/HCPCS: 36415; 74176; 80053; 83690; 83880; 85025; 93005; 96372; J1885

== ENCOUNTER 2019-03-19 16:15 | Observation (INO) | payer MEDICARE, MEDICAID ==
[2019-03-19 17:24] LABS: #Basophils 0.1 thou/uL (0.0-0.2); #Eosinphils 0.2 thou/uL (0.0-0.7); #Lymphocytes 1.7 thou/uL (1.20-3.40); #Monocytes 0.9 thou/uL (0.11-0.59); #Neutrophils 6.9 thou/uL (1.40-6.50); %Basophils 0.9 % (0.0-1.0); %Eosinophils 1.8 % (0.0-10.0); %Lymphocytes 17.2 % (21.0-51.0); %Monocytes 8.9 % (0.0-10.0); %Neutrophils 71.2 % (42.0-75.0); Hemoglobin 12.9 g/dL (14.0-18.0); Mean Corpuscular HGB CONC 32.3 g/dL (32.0-36.0); Mean Corpuscular Hemoglobin 33.4 pg (27.0-31.0); Platelet Count 105 thou/uL (130-400); RBC Distribution Width 14.4 % (11.5-14.5); Red Blood Cell (RBC) Count 3.87 mill/uL (4.70-6.10); White Blood Cell (WBC) Count 9.7 thou/uL (4.8-10.8)
[2019-03-19] MEDS ORDERED: Ondansetron PF 4 MG/2 ML Vial ONE (17:28)
[2019-03-19] MEDS ORDERED: Morphine 4 MG/ML VIAL ONE ×2 (17:28→19:04)
[2019-03-19 17:44] LABS: ALT (SGPT) 20 U/L (8-55); AST (SGOT) 30 U/L (5-34); Albumin 3.3 g/dL (3.5-5.0); Alkaline Phosphatase 139 U/L (40-110); Anion Gap 16 mmol/L (10-20); BUN (Urea Nitrogen) 35 mg/dL (8.4-25.7); Bilirubin, Total 3.9 mg/dL (0.2-1.2); Calc. Creatinine Clearance 0 mL/min (70-130); Calcium 9.5 mg/dL (7.8-10.44); Carbon Dioxide 22 mmol/L (22-29); Chloride 102 mmol/L (98-107); Estimated GFR-MDRD 40; Globulin 3.8 g/dL (2.4-3.5); Glucose 112 mg/dL (70-105); Lipase 33 U/L (8-78); Potassium 3.5 mmol/L (3.5-5.1); Protein, Total 7.1 g/dL (6.0-8.3); Sodium 136 mmol/L (136-145)
--- NOTE | 2019-03-19 18:38 | ULT ---
EXAM: Right upper quadrant ultrasound PROVIDED CLINICAL HISTORY: Abdominal pain COMPARISON: CT 03/18/2019 FINDINGS: Visualized portions of the pancreas appear normal. Liver demonstrates no mass or intrahepatic biliary ductal dilatation. Common duct is nondilated. The gallbladder demonstrates a contracted appearance with nonspecific wall thickening. No evidence for gallstones. Right pleural effusion is again noted. Partially visualized free intraperitoneal fluid. Right kidney demonstrates no hydronephrosis or mass. IMPRESSION: Contracted gallbladder with nonspecific gallbladder wall thickening and no evidence for gallstones.
[2019-03-19 19:03] LABS: Bilirubin 1+ (Negative); Blood, Urine Negative (Negative); Clarity Clear (Clear); Glucose, Urine (Dipstick) Normal (Negative); Leukocyte Negative Leu/uL (Negative); Nitrite Negative (Negative); Protein, Urine (Dipstick) 20 mg/dL (Neg-Trace); Urobilinogen 12 mg/dL (Less than 2)
--- NOTE | 2019-03-19 20:55 | PDOC.FPRHP ---
- History of Present Illness Chief Complaint: Abdominal pain History of Present Illness: Pt is a 58 yo male with PMH significant for CHF with Ef of 15-20 % most recently admitted this month for an exacerbation, HTN, gout, LIT, [place], COPD who presents for epigastric > RUQ pain over the previous couple of months. The pain is constant in nature and feels like it is gnawing, not made worse by anything or anytime of the day. He states he stopped smoking and drinking alcohol because of the pain, discomfort. He feels as though he is constantly bloated, endorsed poor PO intake. He was seen in the emergency department a few days prior and CT abdomen revealed a 2 cm stone. He was seen by Dr. Vasquez who does not believe his pain is secondary to cholelithiasis during that encounter. Pt presented again to the emergency department today because the pain was not remitting. ED Course: In the ED Bili was 3.9. RUQ u/s revealed gallbladder wall thickening w/o evidence of stones, lipase WNL. Dr. Vasquez saw pt in the emergency department and recommended a GI consult, he did not feel surgical intervention was warranted at this time. - Allergies/Adverse Reactions Allergies Allergy/AdvReac Type Severity Reaction Status Date / Time iodine Allergy Mild Hives Verified 12/28/18 09:31 spironolactone Allergy Verified 12/28/18 09:31 - Home Medications Medication Instructions Recorded Confirmed Type Aspirin [Ecotrin Low Strength] 81 mg PO DAILY #0 tab 04/21/13 03/19/19 Rx Zolpidem Tartrate [Ambien] 10 mg PO HS PRN 08/20/18 03/19/19 History Carvedilol [Coreg] 3.125 mg PO BID #60 tab 11/05/18 03/19/19 Rx Cyclobenzaprine [Flexeril] 10 mg PO PRN PRN 12/28/18 03/19/19 History Dexlansoprazole [Dexilant] 60 mg PO DAILY 12/28/18 03/19/19 History Fluticasone/Vilanterol [Breo 1 puff INH PRN PRN 12/28/18 03/19/19 History Ellipta] Furosemide [Lasix] 40 mg PO DAILY 12/28/18 03/19/19 History HYDROcodone/Acetaminophen 1 - 2 tab PO Q4H PRN 12/28/18 03/19/19 History [Hydrocodone-Acetamin 10-325 mg] Iron,Carbonyl [Feosol] 325 mg PO DAILY 12/28/18 03/19/19 History Magnesium 200 mg PO DAILY 12/28/18 03/19/19 History Probenecid/Colchicine 1 tab PO BID 12/28/18 03/19/19 History [Probenecid-Colchicine Tablet] Apixaban [Eliquis] 5 mg PO DAILY 03/19/19 03/19/19 History Atorvastatin Calcium 40 mg PO HS 03/19/19 03/19/19 History Bumetanide 1 mg PO DAILY 03/19/19 03/19/19 History Potassium Chloride 20 meq PO DAILY 03/19/19 03/19/19 History Sacubitril/Valsartan [Entresto 97 1 each PO BID 03/19/19 03/19/19 History mg-103 mg Tablet] - History PMHx: COPD, CHF with Ef of 15-20 % most recently admitted this month for an exacerbation, HTN, gout, LIT, [place] PSHx: lipoma removal FHx: colon cancer Social: recently quit drinking and smoking; previously smoked 1/2 ppd since a teenager, denies drug use - Review of Systems General: reports: fatigue. denies: fever/chills ENT: denies: nasal congestion, rhinorrhea Respiratory: reports: cough, shortness of breath, exercise intolerance Cardiovascular: reports: edema, orthopnea. denies: chest pain, palpitation Gastrointestinal: reports: nausea. denies: vomiting, diarrhea, constipation, GI bleeding Genitourinary: denies: incontinence Skin: denies: rashes, lesions Neurological: denies: numbness, syncope - Vital signs BP: 118/83 HR: 80 RR: 18 Tmax: 97.9 Pox: 99% on RA Wt: 90.7 kg - Physical Exam Constitutional: NAD, awake, alert and oriented HEENT: PERRLA, EOMI Heart: RRR, normal S1/S2 -Lungs: mild expiratory wheeze, bibasilar crackles -Abdomen: distended, tender to palpation most significant in the epigastric/RUQ; positive kee's, negative mcBurney point, bowel sounds positive Heme/Lymphatic: no purpura, no petechia Psychiatric: normal mood and affect FMR H&P: Results - Labs Result Diagrams: 03/19/19 17:14 03/19/19 17:14 Lab results: WBC 9.7 thou/uL (4.8-10.8) 03/19/19 17:14 Hgb 12.9 g/dL (14.0-18.0) L 03/19/19 17:14 Hct 39.9 % (42.0-52.0) L 03/19/19 17:14 MCV 103.0 fL (78.0-98.0) H 03/19/19 17:14 Plt Count 105 thou/uL (130-400) L 03/19/19 17:14 Neutrophils % 71.2 % (42.0-75.0) 03/19/19 17:14 Sodium 136 mmol/L (136-145) 03/19/19 17:14 Potassium 3.5 mmol/L (3.5-5.1) 03/19/19 17:14 Chloride 102 mmol/L (98-107) 03/19/19 17:14 Carbon Dioxide 22 mmol/L (22-29) 03/19/19 17:14 BUN 35 mg/dL (8.4-25.7) H 03/19/19 17:14 Creatinine 2.05 mg/dL (0.7-1.3) H 03/19/19 17:14 Glucose 112 mg/dL (70-105) H 03/19/19 17:14 Calcium 9.5 mg/dL (7.8-10.44) 03/19/19 17:14 Total Bilirubin 3.9 mg/dL (0.2-1.2) H 03/19/19 17:14 AST 30 U/L (5-34) 03/19/19 17:14 ALT 20 U/L (8-55) 03/19/19 17:14 Alkaline Phosphatase 139 U/L (40-110) H 03/19/19 17:14 Serum Total Protein 7.1 g/dL (6.0-8.3) 03/19/19 17:14 Albumin 3.3 g/dL (3.5-5.0) L 03/19/19 17:14 Lipase 33 U/L (8-78) 03/19/19 17:14 Urine Ketones Negative mg/dL (Negative) 03/19/19 18:48 Urine Blood Negative (Negative) 03/19/19 18:48 Urine Nitrite Negative (Negative) 03/19/19 18:48 Ur Leukocyte Esterase Negative Froylan/uL (Negative) 03/19/19 18:48 - Radiology Interpretation US - abdomen Status: report reviewed by me (Gallbladder wll thickening, no gallstones) FMR H&P: A/P - Problem List (1) JOSE A (acute kidney injury) Current Visit: No Status: Acute Code(s): N17.9 - ACUTE KIDNEY FAILURE, UNSPECIFIED (2) HLD (hyperlipidemia) Current Visit: No Status: Acute Code(s): E78.5 - HYPERLIPIDEMIA, UNSPECIFIED (3) Hyperbilirubinemia Current Visit: No Status: Acute Code(s): E80.6 - OTHER DISORDERS OF BILIRUBIN METABOLISM (4) Chronic systolic (congestive) heart failure Current Visit: No Status: Chronic Code(s): I50.22 - CHRONIC SYSTOLIC ( CONGESTIVE) HEART FAILURE Comment: ACC/AHA stage C (5) GERD (gastroesophageal reflux disease) Current Visit: No Status: Chronic Code(s): K21.9 - GASTRO-ESOPHAGEAL REFLUX DISEASE WITHOUT ESOPHAGITIS Qualifiers: Esophagitis presence: without esophagitis Qualified Code(s): K21.9 - Gastro -esophageal reflux disease without esophagitis (6) Hypertension Current Visit: No Status: Chronic Priority: Medium Code(s): I10 - ESSENTIAL (PRIMARY) HYPERTENSION Qualifiers: Hypertension type: essential hypertension Qualified Code(s): I10 - Essential (primary) hypertension - Plan Pt is 58 yo male with PMH CHF with Ef of 15-20 % most recently admitted this month for an exacerbation, HTN, gout, LIT, [place], COPD who presents for chronic epigastric/RUQ abdominal pain # Epigastric/RUQ Pain CT abdomen 2 days ago revealed 2 cm stone; Abdominal u/s gallbladder wall thickening. Pedro reviewed in the emergency department and did not believe pain was secondary to gallbladder dysfunction. Dr. Vasquez recommended GI consult. He does have a normal HIDA a few months ago. Pt does describe gnawing pain, possibly secondary to ulcer. - GI consult in am - HIDA in am - protonix - NPO at midnight # Hyperbilirubinemia Chronic elevation, 3.9 this visit. 2 days ago he was 4.4. - possibly secondary to a gallbladder dysfunction # JOSE A - monitor at this time; does have history of heart failure - pt has 2 + pitting edema. # HFrEF 15-20% # Edema - Lasix IV Pt will need a medicine reconciliation. Fluid: none Diet: NPO Code: full VTE: lovenox Dispo: < 48 hours FMR H&P: Upper Level - Plan Date/Time: 03/19/192054 I, Vaughn Ospina MD, have evaluated this patient and agree with findings/plan as outlined by web development intern resident. Pertinent changes/additions are listed here. Mónica Aldrich is a 58 year old M with a PMH of Nonischemic Cardiomyopathy (Echo 02/2019 showed EF 15-20%, Cath in 2019 showed mild CAD and recommended medical management), A fib, Gout, LIT, GERD, HTN who presented to the ED with a 3 month hx of worsening epigastric abdominal pain. Associated nausea and occasional vomiting, decreased appetite. Denies fever, chills, chest pain, palpitations, urinary symptoms. Patient has been seen in the ED, several times in the last few months for similar symptoms and all RUQ US have been negative for stones. In the ED, pt was found to have UA showing 1+ bilirubin, 12 urobilinogen, CBC wnl, Cr 2.05, Alk Phos 139, Tbili 3.9. AST and ALT wnl. RUQ US showed contracted gallbladder with nonspecific gallbladder wall thickening, no evidence of stones. Exam showed RUQ and Epigastric TTP, + Kee sign, Lungs CTAB, RRR no murmurs. 1+ LE edema b/l. Dr. Vasquez was consulted from the ED, felt that elevation in liver enzymes is due to hepatic congestion from nonischemic cardiomyopathy. Did not feel that pain was 2/2 GB pathology. Recommended GI consult to consider EGD for possible gastric ulcer as source of pain. Admitting patient to obs medical. Will make pt NPO at midnight and ordered HIDA scan. Will consult GI in the AM. Anticipate hospital stay < 48 hours. Please see web development intern note above for full H&P, which I have reviewed and agree with.
--- NOTE | 2019-03-19 23:06 | CON ---
DATE OF CONSULTATION: HISTORY OF PRESENT ILLNESS: Mónica Aldrich is a 58-year-old male patient, who presented to the emergency room because of upper abdominal pain. I was called by Dr. Bautista for concerns for cholecystitis. Ultrasound obtained today revealed pericholecystic fluid, contracted gallbladder. No evidence of gallstones. Right pleural effusion, and no hydronephrosis on the right. The patient went on to have a CAT scan of the abdomen and pelvis revealing gallstone 2 cm reported. There is no ductal dilatation. Of note is that his white count is 9, hemoglobin 12, BUN 35, creatinine 2.05, bilirubin 3.9. Closer review revealed that his bilirubin is chronically elevated up to 5 at times from his chronic hepatic congestion. His AST and ALT are normal. Alkaline phosphatase is mildly elevated to 139, but chronically elevated over the past month. The patient has had 4 ultrasounds this year noting absence of gallstones and normal bile duct caliber. This is the second CAT scan. Previous CAT scan did not reveal any gallstones. The patient has a nonischemic cardiomyopathy with 15% to 20% cardiac ejection fraction. He is followed by Dr. Cuevas. The patient reports having had an EGD in the past, but he does not recall the results. The patient has had a temporary dialysis in 2012 with a Trialysis catheter, but his kidneys recovered, not needing long-term dialysis. The patient had an infected pacemaker requiring removal in 2016 and has a right subclavian vein pacemaker at this time. He has occluded left subclavian vein and innominate vein. I then discussed with the radiologist to review the patient's CAT scan and what was initially felt to be a gallstone on the CAT scan is instead hypertrophied mucosa. There is no evidence of cholecystitis or cholelithiasis. The patient does have chronic [id number] ascites due to his cardiomyopathy and occasionally has seen on past ultrasound and CAT scans pericholecystic fluid, but this is meaningless in a patient with severe cardiomyopathy. He has chronic hepatic congestion with elevated liver function tests. ALLERGIES: IODINE, SPIRONOLACTONE. SOCIAL HISTORY: Tobacco cessation a year ago. Alcohol cessation several years ago. MEDICATIONS: 1. Ambien. 2. Losartan. 3. Carafate. 4. Colchicine. 5. Naproxen. 6. Magnesium. 7. Ferrous sulfate. 8. Dexilant. 9. Flexeril. 10. Coreg. 11. Atorvastatin. 12. Eliquis. 13. Aspirin. 14. Amiodarone. PAST SURGICAL HISTORY: Pacemaker placement, removal, and reinsertion. PAST MEDICAL HISTORY: Nonischemic cardiomyopathy, apparent cardiac catheterization in December. No coronary artery disease. The patient reports prior history of [place], but there are no records of that. Pacemaker status. Chronic anticoagulation status due to cardiomyopathy. Chronic kidney disease. The patient reports prior EGD as noted above, but does not recall having a colonoscopy. He does take NSAIDs on occasion. PHYSICAL EXAMINATION: GENERAL: The patient is alert and oriented. LUNGS: Clear to auscultation with mild rhonchi at base. CARDIAC: Regular rate and rhythm. ABDOMEN: Soft, slightly protuberant. Mild tenderness in bilateral subcostal and epigastrium with mild voluntary guarding. No peritoneal signs. Lower abdomen is soft. EXTREMITIES: Ankle edema bilaterally. LABORATORY DATA: Sodium 136, potassium 3.5, creatinine 2.05, BUN 35, GFR 84, and bilirubin 3.9. ASSESSMENT AND PLAN: 1. Cardiomyopathy, nonischemic with resultant hepatic congestion resulting in chronic elevation of liver function tests. 2. False-positive CAT scan, over-read reveals absence of gallstones. He has had 4 other ultrasounds showing no evidence of gallstones. Bile duct is not dilated. We would not recommend surgical intervention and I have talked to Dr. Bautista and recommended the patient be admitted to medical service. I would recommend GI consult for considering EGD to rule out ulcer disease. He does take NSAIDs occasionally. 3. Chronic kidney disease. 4. Chronic elevation of liver function tests. 5. On Eliquis. Please call if necessary. I will see as needed. Job ID: [id number]
[2019-03-19] MEDS ORDERED: Cyclobenzaprine 10 MG TAB PO PRN (23:38)
[2019-03-19] MEDS ORDERED: HYDROcodone/Acetaminophen 10/325 mg Tablet PO PRN (23:38)
[2019-03-19] MEDS ORDERED: Zolpidem Tartrate 5 MG TAB PO PRN (23:38)
[2019-03-19] MEDS ORDERED: diphenhydrAMINE 25 MG CAP PO PRN ×2 (23:47→23:57)
[2019-03-20] MEDS ORDERED: HYDROcodone/Acetaminophen 10/325 mg Tablet PO PRN
[2019-03-20 01:43] VITALS: BMI 28.8
[2019-03-20] MEDS ORDERED: Furosemide 40 MG/4 ML VIAL SLOW IVP SCH (01:45)
[2019-03-20] MEDS ORDERED: Furosemide 100 MG/10 ML VIAL SLOW IVP SCH (01:51)
[2019-03-20] MEDS: Acetaminophen 325 MG TAB PO PRN ×2 (02:15→20:22)
[2019-03-20 04:25] LABS: ALT (SGPT) 20 U/L (8-55); AST (SGOT) 38 U/L (5-34); Albumin 3.5 g/dL (3.5-5.0); Alkaline Phosphatase 123 U/L (40-110); Anion Gap 17 mmol/L (10-20); BUN (Urea Nitrogen) 36 mg/dL (8.4-25.7); Bilirubin, Total 5.2 mg/dL (0.2-1.2); Calc. Creatinine Clearance 65 mL/min (70-130); Calcium 9.8 mg/dL (7.8-10.44); Carbon Dioxide 18 mmol/L (22-29); Chloride 103 mmol/L (98-107); Estimated GFR-MDRD 53; Globulin 4.2 g/dL (2.4-3.5); Glucose 84 mg/dL (70-105); Potassium 4.3 mmol/L (3.5-5.1); Protein, Total 7.7 g/dL (6.0-8.3); Sodium 134 mmol/L (136-145)
[2019-03-20 05:13] LABS: Hemoglobin 13.6 g/dL (14.0-18.0); Lymphocytes 20 % (21-51); MDiff Complete? YES; Mean Corpuscular HGB CONC 31.7 g/dL (32.0-36.0); Mean Corpuscular Hemoglobin 32.9 pg (27.0-31.0); Mean Platelet Volume 9.7 fL (7.4-10.4); Monocytes 1 % (0-10); Neutrophil 79 % (42-75); Platelet Count 102 thou/uL (130-400); Platelet Morphology Comment Appears Decreased; RBC Distribution Width 14.3 % (11.5-14.5); Red Blood Cell (RBC) Count 4.14 mill/uL (4.70-6.10); White Blood Cell (WBC) Count 11.8 thou/uL (4.8-10.8)
[2019-03-20] MEDS ORDERED: Mometasone/Formoterol 120 PUFF INHALER INH PRN (06:30)
--- NOTE | 2019-03-20 07:09 | PDOC.FM ---
- Subjective Subjective: pt resting comfortably in bed, reports pain has resolved, not dizzy or SOB. additional hx includes pain shortly after eating leading to food aversion and weight loss. - Objective Vital Signs & Weight: Vital Signs (12 hours) Temp Pulse Resp BP Pulse Ox 03/20/19 02:30 98.2 F 03/20/19 00:02 97.4 F L 40 L 26 H 137/97 H 95 03/19/19 21:45 97.4 F L 40 L 25 H 133/96 H 97 Weight Weight 93.638 kg Most Recent Monitor Data Heart Rate from ECG 77 NIBP 111/69 NIBP BP-Mean 83 Respiration from ECG 14 SpO2 90 I&O: 03/19/19 03/20/19 03/21/19 06:59 06:59 06:59 Output Total 150 Balance -150 Result Diagrams: 03/20/19 03:35 03/20/19 03:35 Phys Exam - Physical Examination Constitutional: NAD HEENT: moist MMs Neck: full ROM Respiratory: clear to auscultation bilateral Cardiovascular: RRR ttp over upper abdomen Musculoskeletal: no edema, pulses present Neurological: moves all 4 limbs Lymphatic: no nodes Psychiatric: normal affect Skin: no rash Dx/Plan (1) JOSE A (acute kidney injury) Code(s): N17.9 - ACUTE KIDNEY FAILURE, UNSPECIFIED Status: Acute (2) HLD (hyperlipidemia) Code(s): E78.5 - HYPERLIPIDEMIA, UNSPECIFIED Status: Acute (3) Hyperbilirubinemia Code(s): E80.6 - OTHER DISORDERS OF BILIRUBIN METABOLISM Status: Acute (4) GERD (gastroesophageal reflux disease) Code(s): K21.9 - GASTRO-ESOPHAGEAL REFLUX DISEASE WITHOUT ESOPHAGITIS Status: Chronic Qualifiers: Esophagitis presence: without esophagitis Qualified Code(s): K21.9 - Gastro -esophageal reflux disease without esophagitis (5) Hypertension Code(s): I10 - ESSENTIAL (PRIMARY) HYPERTENSION Status: Chronic Qualifiers: Hypertension type: essential hypertension Qualified Code(s): I10 - Essential (primary) hypertension - Plan Plan: hyperbilirubinemia - elevated bili, lfts, and RUQ pain on admission - surgery- Dr. Pedro crow in ED- not surgical problem - on protonix at home - risk factors for non-resolving gastric ulcer, mesenteric ischemia - NPO, consult GI JOSE A - likely cardiorenal - diurese and monitor bradycardia - AICD/pacer present, incongruent palpated rhythm vs tele monitor - monitor on tele, consider cards consult HFrEF 15-20% - continue home meds - diurese COPD - continue home meds, monitor Afib - paced, continue NOAC Code: full VTE: felicia Dispo: continue eval and treatment
[2019-03-20] MEDS ORDERED: Furosemide 40 MG TAB PO SCH (09:00)
[2019-03-20] MEDS ORDERED: Amiodarone 200 MG TAB PO SCH (09:00)
[2019-03-20] MEDS ORDERED: Bumetanide 1 MG TAB PO SCH ×2 (09:00)
[2019-03-20] MEDS ORDERED: Sacubitril 49 MG/Valsartan 51 MG TABLET PO SCH (09:00)
[2019-03-20] MEDS ORDERED: Apixaban 2.5 MG TAB PO SCH (09:00)
--- NOTE | 2019-03-20 09:39 | RAD ---
PORTABLE CHEST ONE VIEW: 03/20/2019 1:44 a.m. HISTORY: Dyspnea. COMPARISON: 03/17/2019 FINDINGS: Right sided AICD remains in place. Heart size is enlarged. There is mild pulmonary vascular congestio n. No lobar consolidation, pneumothoraces or large effusions are seen. POS: [facility]
[2019-03-20] MEDS: Magnesium Oxide 400 MG TAB PO SCH (09:57)
[2019-03-20] MEDS: Carvedilol 3.125 MG TAB PO SCH ×2 (09:57→17:54)
[2019-03-20] MEDS: Aspirin 81 mg Enteric Coated Tablet PO SCH (09:57)
[2019-03-20] MEDS: Amiodarone 200 MG TAB PO SCH ×2 (09:57→20:22)
[2019-03-20] MEDS: Furosemide 80 MG TAB PO SCH (14:30)
[2019-03-20 16:14] VITALS: BP 124/98
--- NOTE | 2019-03-20 16:46 | EKG ---
Test Reason : SCHEDULED Blood Pressure : / mmHG Vent. Rate : 073 BPM Atrial Rate : 394 BPM P-R Int : 000 ms QRS Dur : 188 ms QT Int : 510 ms P-R-T Axes : 000 262 081 degrees QTc Int : 561 ms Electronic ventricular pacemaker pvc's When compared with ECG of 19-MAR-2019 21:22, (Unconfirmed) Vent. rate has decreased BY [address] Francisco VENEGAS (3) on 03/20/2019 4:45:45 PM Referred By: MISTI Confirmed By:DR. Francisco VENEGAS
--- NOTE | 2019-03-20 16:46 | EKG ---
Test Reason : FOLLOW UP Blood Pressure : / mmHG Vent. Rate : 077 BPM Atrial Rate : 077 BPM P-R Int : 000 ms QRS Dur : 194 ms QT Int : 524 ms P-R-T Axes : 000 -62 092 degrees QTc Int : 592 ms Ventricular-paced rhythm in a pattern of bigeminy Biventricular pacemaker detected Abnormal ECG When compared with ECG of 18-MAR-2019 03:46, (Unconfirmed) Vent. rate has increased BY [address] Francisco VENEGAS (3) on 03/20/2019 4:46:12 PM Referred By: MISTI Confirmed By:DR. Francisco VENEGAS
[2019-03-20] MEDS ORDERED: predniSONE 50 MG TAB PO SCH (20:00)
[2019-03-20] MEDS: Apixaban 2.5 MG TAB PO SCH ×2 (20:22→20:49)
[2019-03-20] MEDS ORDERED: Atorvastatin Calcium 40 MG TAB PO SCH (21:00)
[2019-03-21] MEDS ORDERED: predniSONE 50 MG TAB PO SCH ×2 (02:00→08:00)
[2019-03-21] MEDS ORDERED: Morphine 2 MG/ML SYRINGE SLOW IVP SCH (02:15)
[2019-03-21 04:52] LABS: ALT (SGPT) 22 U/L (8-55); AST (SGOT) 33 U/L (5-34); Albumin 3.3 g/dL (3.5-5.0); Alkaline Phosphatase 134 U/L (40-110); Anion Gap 15 mmol/L (10-20); BUN (Urea Nitrogen) 43 mg/dL (8.4-25.7); Bilirubin, Total 4.7 mg/dL (0.2-1.2); Calc. Creatinine Clearance 62 mL/min (70-130); Calcium 9.6 mg/dL (7.8-10.44); Carbon Dioxide 23 mmol/L (22-29); Chloride 100 mmol/L (98-107); Estimated GFR-MDRD 50; Glucose 141 mg/dL (70-105); Potassium 4.5 mmol/L (3.5-5.1); Protein, Total 7.3 g/dL (6.0-8.3); Sodium 133 mmol/L (136-145)
[2019-03-21 05:25] LABS: Band 3 % (5-11); Hemoglobin 13.2 g/dL (14.0-18.0); Lymphocytes 9 % (21-51); MDiff Complete? YES; Mean Corpuscular HGB CONC 31.4 g/dL (32.0-36.0); Mean Corpuscular Hemoglobin 32.4 pg (27.0-31.0); Mean Platelet Volume 9.5 fL (7.4-10.4); Monocytes 1 % (0-10); Neutrophil 87 % (42-75); Platelet Count 94 thou/uL (130-400); Platelet Morphology Comment Appears Decreased; RBC Distribution Width 14.6 % (11.5-14.5); Red Blood Cell (RBC) Count 4.09 mill/uL (4.70-6.10); White Blood Cell (WBC) Count 8.5 thou/uL (4.8-10.8)
[2019-03-21] MEDS ORDERED: diphenhydrAMINE 50 MG CAP PO SCH (08:00)
[2019-03-21] MEDS: Furosemide 80 MG TAB PO SCH (08:06)
[2019-03-21] MEDS: Apixaban 2.5 MG TAB PO SCH (08:06)
[2019-03-21] MEDS: Amiodarone 200 MG TAB PO SCH (08:06)
[2019-03-21] MEDS: Carvedilol 3.125 MG TAB PO SCH (08:06)
[2019-03-21] MEDS: Magnesium Oxide 400 MG TAB PO SCH (08:07)
[2019-03-21] MEDS: Aspirin 81 mg Enteric Coated Tablet PO SCH (08:07)
--- NOTE | 2019-03-21 08:21 | PDOC.FM ---
- Subjective Subjective: pt resting comfortably in his chair, one episode of pain last night after eating. denies continued pain, nausea. - Objective Vital Signs & Weight: Vital Signs (12 hours) Temp Pulse Resp Pulse Ox 03/21/19 07:53 94 L 03/21/19 07:10 97.2 F L 03/21/19 03:38 97.5 F L 03/21/19 01:31 20 94 L 03/20/19 23:32 98.0 F 03/20/19 22:26 74 12 95 Weight Weight 93.638 kg Most Recent Monitor Data Heart Rate from ECG 62 NIBP 116/88 NIBP BP-Mean 97 Respiration from ECG 11 SpO2 86 I&O: 03/20/19 03/21/19 03/22/19 06:59 06:59 06:59 Intake Total 200 Output Total 150 680 Balance -150 -480 Result Diagrams: 03/21/19 03:44 03/21/19 03:44 Phys Exam - Physical Examination Constitutional: NAD HEENT: moist MMs Neck: no JVD Gastrointestinal: non-tender, no distention Musculoskeletal: no edema Neurological: moves all 4 limbs Psychiatric: normal affect Dx/Plan (1) JOSE A (acute kidney injury) Code(s): N17.9 - ACUTE KIDNEY FAILURE, UNSPECIFIED Status: Acute (2) HLD (hyperlipidemia) Code(s): E78.5 - HYPERLIPIDEMIA, UNSPECIFIED Status: Acute (3) Hyperbilirubinemia Code(s): E80.6 - OTHER DISORDERS OF BILIRUBIN METABOLISM Status: Acute (4) GERD (gastroesophageal reflux disease) Code(s): K21.9 - GASTRO-ESOPHAGEAL REFLUX DISEASE WITHOUT ESOPHAGITIS Status: Chronic Qualifiers: Esophagitis presence: without esophagitis Qualified Code(s): K21.9 - Gastro -esophageal reflux disease without esophagitis (5) Hypertension Code(s): I10 - ESSENTIAL (PRIMARY) HYPERTENSION Status: Chronic Qualifiers: Hypertension type: essential hypertension Qualified Code(s): I10 - Essential (primary) hypertension - Plan Plan: hyperbilirubinemia - elevated bili, lfts, and RUQ pain on admission - surgery- Dr. Pedro crow in ED- not surgical problem - on protonix at home - risk factors for non-resolving gastric ulcer, mesenteric ischemia - CTA today, fu with GI outpatient JOSE A - likely cardiorenal - diurese and monitor bradycardia - AICD/pacer present, incongruent palpated rhythm vs tele monitor - monitor on tele HFrEF 15-20% - continue home meds - diurese COPD - continue home meds, monitor Afib - paced, continue NOAC Code: full VTE: eliquis Dispo: likely DC after CTA ab/pel today
--- NOTE | 2019-03-21 09:40 | CT ---
CTA Angio Abd Pelvis W WO Con History: Abdominal pain Comparison: CT examination the abdomen and pelvis March 18, 2019 Findings: CT angiogram of the abdomen and pelvis was performed after the intravenous administration o f contrast. 3-D rendering was provided. There is a moderate layering right pleural effusion. Mild right lower lobe bronchiectasis. Heart size is enlarged. Right atrial right ventricular enlargement e xtensive reflux contrast within the suprahepatic IVC, hepatic veins, and infrahepatic IVC. Small volume ascites. The liver is enlarged. There is mild ectasia of the infrarenal abdominal aorta measures up to 2.3 cm size. Moderate atherosclerotic plaque. Mild third spacing of fluid. Spleen is unremarkable along with the pancreas aside from mild pancreati c atrophy. Mild hypertrophy of the adrenal glands. Vessels: There is 50% narrowing of the celiac trunk due to calcific plaque. The superior mesenteric a rtery is patent with extensive atherosclerotic plaque. The inferior mesenteric artery is patent. High-grade atherosclerotic plaque both renal arteries with multifocal 50-60% stenoses due to calcific and soft plaque. 2 peripheral wedge-shaped defects of the right kidney likely sequelae of prior infarction. No dilated loops of large or small bowel. The appendix is visualized and is normal. Bilateral L5 pars interarticularis defects with 3 mm anterolisthesis. Impression: 1. Mild infrarenal abdominal aortic ectasia without aneurysmal dilatation. 2. Moderate right layering pleural effusion with marked cardiomegaly as well as reflux contrast throu gh the IVC suggesting diastolic dysfunction. Echocardiogram may be beneficial. 3. There is decreasing fluid, small volume ascites, and gallbladder congestion likely sequelae of michael stolic dysfunction. 4. Multifocal 50-60% narrowing of the renal arteries due to calcific and soft plaque. 5. Single high-grade 80-90% stenosis of the left renal artery 2 cm from the ostia without evidence fo r end organ ischemia.
[2019-03-21 11:10] VITALS: TEMP 96.2
--- NOTE | 2019-03-24 11:25 | DIS ---
DATE OF ADMISSION: 03/19/2019 DATE OF DISCHARGE: 03/21/2019 ADMITTING ATTENDING: Dionicio Antony MD DISCHARGE ATTENDING: Dionicio Antony MD RESIDENT: Broderick Mark DO. CONSULTS: Gastroenterology, Dr. Singh. Dr. Blade Vasquez, General Surgery. DISCHARGE MEDICATIONS: 1. Aspirin 81 mg p.o. daily. 2. Ambien 10 mg p.o. at bedtime p.r.n. 3. Coreg 3.125 mg p.o. b.i.d. 4. Breo one puff inhaled p.r.n. 5. Iron 325 mg p.o. daily. 6. Lasix 40 mg p.o. daily. 7. Probenecid/colchicine 1 tablet p.o. b.i.d. 8. Dexilant 60 mg p.o. daily. 9. Hydrocodone 1 to 2 tabs p.o. q.4 hours p.r.n. 10. Flexeril 10 mg p.o. p.r.n. 11. Magnesium 200 mg p.o. daily. 12. Bumetanide 1 mg p.o. daily. 13. Entresto 97 mg/103 mg. 14. Potassium chloride 20 mEq p.o. daily. 15. Eliquis 5 mg p.o. b.i.d. 16. Atorvastatin 40 mg p.o. at bedtime. IMAGING STUDIES: Abdominal ultrasound reveals gallbladder wall thickening and small amount of common bile duct dilatation with no stones. CT scan confirmed that with some mesenteric fat stranding. Abdomen/pelvis CTA, mild infrarenal abdominal aortic ectasia without aneurysmal dilatation, moderate right layering pleural effusion, marked cardiomegaly, reflux through IVC and narrowing of the renal arteries. HISTORY OF PRESENT ILLNESS/HOSPITAL COURSE: Mónica Aldrich is a 58-year-old male with past medical history significant for heart failure with ejection fraction 15% to 20%, who frequently arrived to the ER and subsequently admitted to the hospital for heart failure exacerbations, most likely secondary to noncompliance and abdominal pain, most likely related to poor blood supply related to his heart failure. The patient is again admitted at this time for this reason. Dr. Blade Vasquez was contacted from the emergency department because of his right upper quadrant tenderness and prior history of stones in the gallbladder. Dr. Vasquez determined at that time it was not a surgical case, so it was determined that he would be admitted to the hospital for CHF exacerbation and intractable abdominal pain. Upon being admitted to the floor, his abdominal pain had resolved and further investigation revealed that his abdominal pain sounds most likely like chronic mesenteric ischemia or chronic intestinal ischemia related to his poor functioning heart. GI was contacted, agreed, did not think that further workup inpatient was necessary and would like the patient to follow up in clinic. The patient would be high risk for EGD, but that may be considered as well. DISCHARGE INSTRUCTIONS: 1. Diet: Heart healthy, low-sodium. Fluid restriction of 1500 mL a day. 2. Activity: As tolerated. 3. Followup: Follow up with PCP, Dr. Marion in the next 3 days and GI, Dr. Singh, the following week. Job ID: [id number]
== END 2019-03-21 12:41 | disposition home or self-care (01) ==
LOC: ERS 16:15 → SJJU 18:53 → IMCU/EMU 03-20 02:43
PROVIDERS: ADMIT Student in an Organized Health Care Education/Training Program; ATTEND Student in an Organized Health Care Education/Training Program
DX: I13.0 Hypertensive heart and chronic kidney disease with heart failure and stage 1 through stage 4 chronic kidney disease, or unspecified chronic kidney disease (principal); N18.9 Chronic kidney disease, unspecified; I50.23 Acute on chronic systolic (congestive) heart failure; N17.9 Acute kidney failure, unspecified; R10.13 Epigastric pain; E80.6 Other disorders of bilirubin metabolism; M10.9 Gout, unspecified; G47.33 Obstructive sleep apnea (adult) (pediatric); I25.2 Old myocardial infarction; J44.9 Chronic obstructive pulmonary disease, unspecified; K21.9 Gastro-esophageal reflux disease without esophagitis; E78.5 Hyperlipidemia, unspecified; I25.10 Atherosclerotic heart disease of native coronary artery without angina pectoris; I48.91 Unspecified atrial fibrillation; F12.11 Cannabis abuse, in remission; F14.11 Cocaine abuse, in remission; K82.8 Other specified diseases of gallbladder; I42.8 Other cardiomyopathies; R79.89 Other specified abnormal findings of blood chemistry; I77.811 Abdominal aortic ectasia; J90 Pleural effusion, not elsewhere classified; R18.8 Other ascites; I70.1 Atherosclerosis of renal artery; Z87.891 Personal history of nicotine dependence; Z79.01 Long term (current) use of anticoagulants; Z79.899 Other long term (current) drug therapy; Z88.8 Allergy status to other drugs, medicaments and biological substances; Z91.041 Radiographic dye allergy status; Z95.0 Presence of cardiac pacemaker
CPT/HCPCS: 36415; 71045; 74174; 76705; 80053; 81003; 83690; 83880; 85007; 85025; 85027; 93005; 93010; 94640; 94660; 96361; 96374; 96375; 96376; G0378; J1940; J2270; J2405; J7512; J7620; Q0163

== ENCOUNTER 2019-03-23 16:22 | Observation (INO) | payer MEDICARE, MEDICAID ==
[~2019-03-23 16:22] MED LIST changes: -ISOVUE-370 76%-LOCM 1 ML ONE; +Iopamidol-370 76% 500 ML 1 ML ONE
[2019-03-23 17:15] LABS: #Eosinphils 0.1 thou/uL (0.0-0.7); #Lymphocytes 1.4 thou/uL (1.20-3.40); #Neutrophils 8.5 thou/uL (1.40-6.50); %Basophils 0.3 % (0.0-1.0); %Eosinophils 1.1 % (0.0-10.0); %Lymphocytes 12.3 % (21.0-51.0); %Monocytes 9.2 % (0.0-10.0); %Neutrophils 77.1 % (42.0-75.0); Hemoglobin 13.3 g/dL (14.0-18.0); Mean Corpuscular HGB CONC 32.7 g/dL (32.0-36.0); Mean Corpuscular Hemoglobin 33.5 pg (27.0-31.0); Mean Platelet Volume 9.9 fL (7.4-10.4); Platelet Count 107 thou/uL (130-400); RBC Distribution Width 14.6 % (11.5-14.5); Red Blood Cell (RBC) Count 3.97 mill/uL (4.70-6.10); White Blood Cell (WBC) Count 11.1 thou/uL (4.8-10.8)
[2019-03-23 17:24] LABS: ALT (SGPT) 23 U/L (8-55); AST (SGOT) 35 U/L (5-34); Albumin 3.5 g/dL (3.5-5.0); Alkaline Phosphatase 168 U/L (40-110); Anion Gap 16 mmol/L (10-20); BUN (Urea Nitrogen) 51 mg/dL (8.4-25.7); Bilirubin, Total 3.6 mg/dL (0.2-1.2); Calc. Creatinine Clearance 0 mL/min (70-130); Calcium 9.9 mg/dL (7.8-10.44); Carbon Dioxide 23 mmol/L (22-29); Chloride 99 mmol/L (98-107); Estimated GFR-MDRD 54; Globulin 4.1 g/dL (2.4-3.5); Glucose 137 mg/dL (70-105); Lipase 37 U/L (8-78); Potassium 3.5 mmol/L (3.5-5.1); Protein, Total 7.6 g/dL (6.0-8.3); Sodium 134 mmol/L (136-145)
[2019-03-23] MEDS ORDERED: diphenhydrAMINE 50 MG/ML VIAL ONE (17:33)
[2019-03-23] MEDS ORDERED: methylPREDNISolone Sod Succ/PF 125 MG/2 ML VIAL ONE (17:33)
[2019-03-23] MEDS ORDERED: Famotidine/PF 20 mg/2ml Vial ONE (17:33)
[2019-03-23 18:08] LABS: Bilirubin Negative (Negative); Blood, Urine Negative (Negative); Clarity Clear (Clear); Glucose, Urine (Dipstick) Normal (Negative); Leukocyte Negative Leu/uL (Negative); Nitrite Negative (Negative); Protein, Urine (Dipstick) Negative (Neg-Trace); Urobilinogen 6 mg/dL (Less than 2)
--- NOTE | 2019-03-23 18:27 | RAD ---
PORTABLE CHEST: Date: 03/23/2019 HISTORY: Epigastric pain. COMPARISON: 03/20/2019 study. FINDINGS: Heart size is enlarged with an internal defibrillator device present. Lungs are clear of any infiltra shima. There are no signs of failure. IMPRESSION: Cardiomegaly. POS: [facility]
[2019-03-23 18:44] LABS: CKMB 6.3 ng/mL (0-6.6)
--- NOTE | 2019-03-23 19:04 | CT ---
CT ABDOMEN AND PELVIS PERFORMED WITH INTRAVENOUS CONTRAST ENHANCEMENT: Date: 03/23/2019 HISTORY: Abdominal pain and nausea. Patient was premedicated for a contrast allergy using the Fast Prep. COMPARISON: 03/08/09 study. FINDINGS: There is a moderate size right pleural effusion. It is slightly increased in size since that previous exam. The left lung is clear. Heart size is enlarged. Marked reflux of contrast into the hepatic vei ns is noted. The liver is within normal limits of size. No focal abnormalities. The spleen and pancre as regions appear unremarkable. The gallbladder is not distended. Right and left adrenal glands are normal. There is some cortical scarring involving the right kidney. No obstruction. There is no significant periaortic or mesenteric adenopathy. Some minimal fat strand ing in the retroperitoneum extending into the pelvis is noted. This is associated with some mild mary nephric fat stranding. A small, fat-containing periumbilical hernia is seen. Some minimal ascites is noted within the pelvis. Appendix region appears unremarkable. No significant bony findings. IMPRESSION: 1. Moderate right pleural effusion. 2. Enlarged heart and dilated right atrium and marked reflux into the hepatic veins consistent with right heart dysfunction. 3. Minimal ascites. POS: [facility]
[2019-03-23] MEDS ORDERED: Morphine 4 MG/ML VIAL ONE (19:27)
[2019-03-23] MEDS ORDERED: Furosemide 100 MG/10 ML VIAL ONE (20:16)
--- NOTE | 2019-03-23 21:50 | PDOC.FPRHP ---
- History of Present Illness Chief Complaint: Abdominal pain, SOB History of Present Illness: Mr. Aldrich is a 58 yo male with PMH significant for HFrEF (15-20%) most recently admitted this month for an exacerbation, HTN, gout, LIT, [place], COPD who presents for diffuse abdominal pain that has worsened. He states he was recently in the hospital for similar symptoms. Patient reports that abdominal pain and constipation x 2 days is why he came to the hospital. He states that the pain has caused him to be short of breath. He states he drinks 1-2 "pickle jars" of milk per day. He does not keep a log of how much fluid he drinks and states he does drink some water, but prefers milk. He is a poor historian. He is not on oxygen at home. ED Course: Lasix 80mg IV, Morphine, Famotidine, Methylprednisolone - Allergies/Adverse Reactions Allergies Allergy/AdvReac Type Severity Reaction Status Date / Time iodine Allergy Mild Hives Verified 12/28/18 09:31 spironolactone Allergy Verified 12/28/18 09:31 - Home Medications Medication Instructions Recorded Confirmed Type Aspirin [Ecotrin Low Strength] 81 mg PO DAILY #0 tab 04/21/13 03/23/19 Rx Zolpidem Tartrate [Ambien] 10 mg PO HS PRN 08/20/18 03/23/19 History Carvedilol [Coreg] 3.125 mg PO BID #60 tab 11/05/18 03/23/19 Rx Cyclobenzaprine [Flexeril] 10 mg PO PRN PRN 12/28/18 03/23/19 History Dexlansoprazole [Dexilant] 60 mg PO DAILY 12/28/18 03/23/19 History Fluticasone/Vilanterol [Breo 1 puff INH PRN PRN 12/28/18 03/23/19 History Ellipta] HYDROcodone/Acetaminophen 1 - 2 tab PO Q4H PRN 12/28/18 03/23/19 History [Hydrocodone-Acetamin 10-325 mg] Iron,Carbonyl [Feosol] 325 mg PO DAILY 12/28/18 03/23/19 History Magnesium 200 mg PO DAILY 12/28/18 03/23/19 History Probenecid/Colchicine 1 tab PO BID 12/28/18 03/23/19 History [Probenecid-Colchicine Tablet] Atorvastatin Calcium 40 mg PO HS 03/19/19 03/23/19 History Bumetanide 1 mg PO DAILY 03/19/19 03/23/19 History Potassium Chloride 20 meq PO DAILY 03/19/19 03/23/19 History Apixaban [Eliquis] 5 mg PO BID 03/24/19 03/24/19 History Ipratropium/Albuterol Sulfate 3 ml NEB QID PRN #30 neb 03/24/19 Rx [Duoneb] Sacubitril/Valsartan [Entresto 24 1 each PO BID 03/24/19 03/24/19 History mg-26 mg Tablet] Torsemide 20 mg PO DAILY #30 tablet 03/24/19 Rx predniSONE 40 mg PO QAM-WM #8 tab 03/24/19 Rx - History PMHx: COPD, CHF with Ef of 15-20%, HTN, gout, LIT, [place] PSHx: lipoma removal FHx: colon cancer Social: recently quit drinking and smoking; previously smoked 1/2 ppd since a teenager, denies drug use - Review of Systems General: reports: weight/appetite/sleep changes. denies: fever/chills Eyes: denies: eye pain, vision changes ENT: denies: nasal congestion, rhinorrhea Respiratory: reports: shortness of breath, exercise intolerance. denies: cough , congestion Cardiovascular: reports: chest pain, edema, paroxysmal nocturnal dyspnea, orthopnea. denies: palpitation Gastrointestinal: reports: abdominal pain. denies: nausea, vomiting, diarrhea, constipation, GI bleeding Genitourinary: denies: incontinence, dysuria, polyuria Skin: denies: rashes, lesions Musculoskeletal: denies: pain, tenderness, stiffness Neurological: reports: weakness. denies: numbness, syncope, seizure - Vital signs BP: 125/93, MAP: 103, Pulse: 69, Resp: 22, Temp: 97.4 (Oral), Pain: 10, O2 sat: 94 on (Room Air), Time: 03/23/2019 20:22. - Physical Exam Constitutional: awake, alert and oriented, well developed -Constitutional: Short of breath when talking HEENT: normocephalic and atraumatic, PERRLA, EOMI, grossly normal vision, grossly normal hearing, MMM -HEENT: Scleral icterus present Neck: supple, FROM, trachea midline Heart: RRR, normal S1/S2, no murmurs/rubs/gallops -Heart: pitting edema to the level of the abdomen Lungs: no respiratory distress, good air movement -Lungs: Coarse breath sounds bilaterally, no crackles appreciated Abdomen: soft, no masses/distention -Abdomen: TTP diffusely Musculoskeletal: normal structure, normal tone Neurological: no focal deficit, CN II-XII intact Skin: no rash/lesions, good turgor Heme/Lymphatic: no unusual bruising or bleeding, no purpura Psychiatric: normal mood and affect, intact recent and remote memory FMR H&P: Results - Labs Result Diagrams: 03/23/19 16:52 03/24/19 04:22 Lab results: WBC 11.1 thou/uL (4.8-10.8) H 03/23/19 16:52 Hgb 13.3 g/dL (14.0-18.0) L 03/23/19 16:52 Hct 40.7 % (42.0-52.0) L 03/23/19 16:52 MCV 103.0 fL (78.0-98.0) H 03/23/19 16:52 Plt Count 107 thou/uL (130-400) L 03/23/19 16:52 Neutrophils % 77.1 % (42.0-75.0) H 03/23/19 16:52 Sodium 134 mmol/L (136-145) L 03/23/19 16:52 Potassium 3.5 mmol/L (3.5-5.1) 03/23/19 16:52 Chloride 99 mmol/L (98-107) 03/23/19 16:52 Carbon Dioxide 23 mmol/L (22-29) 03/23/19 16:52 BUN 51 mg/dL (8.4-25.7) H 03/23/19 16:52 Creatinine 1.59 mg/dL (0.7-1.3) H 03/23/19 16:52 Glucose 137 mg/dL (70-105) H 03/23/19 16:52 Calcium 9.9 mg/dL (7.8-10.44) 03/23/19 16:52 Total Bilirubin 3.6 mg/dL (0.2-1.2) H 03/23/19 16:52 AST 35 U/L (5-34) H 03/23/19 16:52 ALT 23 U/L (8-55) 03/23/19 16:52 Alkaline Phosphatase 168 U/L (40-110) H 03/23/19 16:52 Creatine Kinase 167 U/L (30-200) 03/23/19 16:52 CK-MB (CK-2) 6.3 ng/mL (0-6.6) 03/23/19 16:52 B-Natriuretic Peptide 1725.6 pg/mL (0-100) H 03/23/19 16:52 Serum Total Protein 7.6 g/dL (6.0-8.3) 03/23/19 16:52 Albumin 3.5 g/dL (3.5-5.0) 03/23/19 16:52 Lipase 37 U/L (8-78) 03/23/19 16:52 Urine Ketones Negative mg/dL (Negative) 03/23/19 17:45 Urine Blood Negative (Negative) 03/23/19 17:45 Urine Nitrite Negative (Negative) 03/23/19 17:45 Ur Leukocyte Esterase Negative Froylan/uL (Negative) 03/23/19 17:45 FMR H&P: A/P - Plan Acute on chronic HFrEF exacerbation - EF estimated at 35% - He is a very poor historian, suspect poor compliance with medications - BNP elevated 1725 - Patient on IV lasix and was discharged with bumex after last admission. Will give IV lasix for better diuresis. - He is not complaining of significant shortness of breath, his complaints are related to abdominal pain - Continue home medications, including entresto Abdominal pain, similar to last admission. - Per Dr. Mark, Dr. Signh consulted and suspicion for gastropathy related to HF ; patient supposed to follow up outpatient Hyperbilirubinemia - Chronic elevation - Suspect related to hepatic congestion 2/2 CHF Macrocytic anemia - recommend checking B12 and Folate, he does not endorse alcohol use. Elevated troponin - at his baseline Disposition/LOS: Dispo: Stable, obs LOS < 48 hours. VTE: Eliquis Code: Full FMR H&P: Upper Level - Pertinent history 58 year old male with PMH significant for poorly controlled HFrEF (15-20%) who is frequently admitted for HF exacerbations presents with abdominal pain and shortness of breath. Patient reports diffuse abdominal pain over the last several months. He had gallstone noted on imaging during previous hospitalization which passed. After talking with Dr. Mark, it sounds like Dr. Singh with GI evaluated patient. CTA abdomen/pelvis performed to evaluate for mesenteric ischemia which was essentially negative. Another differential includes cardiac gastropathy. Patient was reportedly told to follow up with GI outpatient. He may have a follow up scheduled for Sunday. Patient reports that abdominal pain is always present, but it is exacerbated from time to time, particularly when his fluid status is up. He states that the pain causes him to be short of breath. He endorses compliance with medications and fluid restriction. Patient also reports a two day history of constipation. Patient states he did stop smoking and drinking alcohol in an effort to help reduce number of exacerbations. - Pertinent findings General: Alert and oriented x3. No acute distress. HEENT: MMM. Card: RRR, no appreciable murmur Resp: CTA bilaterally, short of breath with talking Abdomen: Distended, diffusely tender to palpation, no guarding or rebound. Edema of abdomen. Ext: Trace bilateral lower extremity edema. - Plan Date/Time: 03/23/192147 IRicarda, have evaluated this patient and agree with findings/plan as outlined by biomedical engineering internship resident. Pertinent changes/additions are listed here. Acute on chronic HFrEF exacerbation - EF estimated at 35% - Suspect poor compliance with medications - BNP 1725 --> 2920 - Patient on IV lasix and bumex; he may need additional lasix for diuresis - He is not complaining of significant shortness of breath, his complaints are related to abdominal pain - Continue home medications, including entresto Abdominal pain, suspect gastropathy - CTA abdomen performed during last hospitalization, no evidence mesenteric ischemia - Gallstone had notably passed - Dr. Singh consulted and suspicion for gastropathy related to HF; patient supposed to follow up outpatient Hyperbilirubinemia - Chronic elevation - Suspect related to hepatic congestion Hepatic congestion - 2/2 right heart failure Macrocytic anemia - Suspect related alcohol use - Check B12 and folate if not done already Thrombocytopenia - Chronic, suspect related to liver dysfunction 2/2 hepatic congestion Elevated troponin - Appears to be at baseline for patient DVT PPX: Eliquis GI PPX: PPI Code status: Full Dispo: Obs on telemetry. Continue diuresis. Addendum - Attending - Attending Attestation Date/Time: 03/24/19 5947 I personally evaluated the patient and discussed the management with Dr. Knox and team. I agree with the History, Examination, Assessment and Plan documented above with any addition or exceptions noted below.
[2019-03-23] MEDS ORDERED: Acetaminophen 325 MG TAB PO PRN (22:10)
[2019-03-23] MEDS ORDERED: Senokot S 8.6-50 MG TAB PO PRN (22:10)
[2019-03-23 22:27] VITALS: BMI 29.2
[2019-03-23 23:28] LABS: Troponin I 0.326 ng/mL (< 0.028)
[2019-03-23] MEDS ORDERED: Non-Formulary Item 1 EACH (Fluticasone/Vilanterol [Breo Ellipta] 1 PUFF) INH PRN (23:51)
[2019-03-23] MEDS ORDERED: Cyclobenzaprine 10 MG TAB PO PRN (23:51)
[2019-03-24] MEDS ORDERED: Polyethylene Glycol 3350 17 GM Packet PO SCH (00:15)
[2019-03-24 02:21] LABS: Critical Call Chem Troponin I RESULT DECREASING; Troponin I 0.312 ng/mL (< 0.028)
[2019-03-24 05:02] LABS: Anion Gap 22 mmol/L (10-20); BUN (Urea Nitrogen) 51 mg/dL (8.4-25.7); Calc. Creatinine Clearance 69 mL/min (70-130); Calcium 10.1 mg/dL (7.8-10.44); Carbon Dioxide 18 mmol/L (22-29); Chloride 98 mmol/L (98-107); Estimated GFR-MDRD 56; Glucose 134 mg/dL (70-105); Potassium 3.9 mmol/L (3.5-5.1); Sodium 134 mmol/L (136-145)
[2019-03-24] MEDS: Furosemide 40 MG/4 ML VIAL SLOW IVP SCH ×2 (05:27→13:03)
--- NOTE | 2019-03-24 07:05 | PDOC.FM ---
- Subjective Subjective: pt resting comfortably in bed, reports abdominal pain has resolved. reports increased sob over past few days, change in sputum - Objective Vital Signs & Weight: Vital Signs (12 hours) Temp Pulse Resp BP BP Pulse Ox 03/24/19 03:43 97.6 F 68 20 141/93 H 100 03/23/19 23:25 63 25 H 132/96 H 03/23/19 22:20 96.7 F L 62 25 H 132/105 H 100 Weight Weight 94.302 kg I&O: 03/22/19 03/23/19 03/24/19 06:59 06:59 06:59 Intake Total 240 Output Total 950 Balance -710 Result Diagrams: 03/23/19 16:52 03/24/19 04:22 Phys Exam - Physical Examination Constitutional: NAD HEENT: moist MMs Neck: supple Respiratory: wheezing present Cardiovascular: no significant murmur Gastrointestinal: soft, non-tender, no distention Musculoskeletal: no edema, pulses present Neurological: moves all 4 limbs Psychiatric: normal affect Skin: no rash Dx/Plan - Plan Plan: hyperbilirubinemia - elevated bili, lfts, ruq pain - on last admission, surgery- Dr. Pedro crow in ED- not surgical problem, GI consulted. pt has outpt fu - risk factors for non-resolving gastric ulcer, chronic mesenteric/intestinal ischemia related to poor perfusion - optimize HF treatment mild copd vs chf exac - diurese with IV lasix - duonebs, po steroid HFrEF 15-20% - has AICD, continue home meds COPD - continue home meds, monitor Afib - paced, continue NOAC Code: full VTE: eliquis Dispo: likely dispo as had been worked up and has outpt fu Addendum - Attending - Attending Attestation Date/Time: 03/24/19 5430 I personally evaluated the patient and discussed the management with Dr. Mark. I agree with the History, Examination, Assessment and Plan documented above with any addition or exceptions noted below.
[2019-03-24] MEDS ORDERED: Ferrous Sulfate 325 MG TAB PO SCH (08:00)
[2019-03-24] MEDS ORDERED: Potassium Chloride 20 MEQ TAB PO SCH (08:00)
[2019-03-24] MEDS ORDERED: Magnesium Oxide 400 MG TAB PO SCH (09:00)
[2019-03-24] MEDS ORDERED: Furosemide 40 MG TAB PO SCH (09:00)
[2019-03-24] MEDS ORDERED: Sacubitril 49 MG/Valsartan 51 MG TABLET PO SCH (09:00)
[2019-03-24] MEDS ORDERED: Apixaban 5 MG TAB PO SCH ×2 (09:00→21:00)
[2019-03-24] MEDS ORDERED: Bumetanide 1 MG TAB PO SCH (09:00)
[2019-03-24] MEDS ORDERED: Carvedilol 3.125 MG TAB PO SCH (09:00)
[2019-03-24] MEDS ORDERED: Senokot S 8.6-50 MG TAB PO SCH (09:00)
[2019-03-24] MEDS ORDERED: Aspirin 81 mg Enteric Coated Tablet PO SCH (09:00)
[2019-03-24] MEDS ORDERED: predniSONE 20 MG TAB PO SCH (11:00)
[2019-03-24 16:09] VITALS: BP 136/89; TEMP 96.2
[2019-03-24] MEDS ORDERED: Atorvastatin Calcium 40 MG TAB PO SCH (21:00)
[2019-03-25] MEDS ORDERED: predniSONE 20 MG TAB PO SCH (08:00)
--- NOTE | 2019-03-25 13:29 | DIS ---
DATE OF ADMISSION: 03/23/2019 DATE OF DISCHARGE: 03/24/2019 ADMITTING ATTENDING: Sundeep Llamas MD DISCHARGE ATTENDING: Sundeep Llaams MD IMAGING: Chest x-ray, reveals cardiomegaly. Abdomen and pelvis CT reveals unchanged from previous CT scans. DISCHARGE MEDICATIONS: 1. Aspirin 81 mg p.o. daily. 2. Ambien 10 mg p.o. at bedtime p.r.n. 3. Coreg 3.125 p.o. b.i.d. 4. Breo one puff inhaled daily p.r.n. 5. Feosol 325 mg p.o. daily. 6. Probenecid/colchicine one tablet p.o. b.i.d. 7. Dexilant 60 mg p.o. daily. 8. [place] 1 to 2 tabs p.o. q.4 hours p.r.n. 9. Flexeril 10 mg p.o. daily p.r.n. 10. Magnesium 200 mg p.o. daily. 11. Bumex 1 mg p.o. daily. 12. Potassium chloride 20 mEq p.o. daily. 13. Atorvastatin 40 mg p.o. at bedtime. 14. Entresto 24/ one tab each p.o. b.i.d. 15. Eliquis 5 mg p.o. b.i.d. 16. Prednisone 40 mg p.o. q.a.m. for a total of four additional days. 17. DuoNeb solution. 18. Torsemide 20 mg p.o. daily. Discontinued medications; Lasix 40 mg p.o. daily. DISCHARGE DIAGNOSES: 1. Hyperbilirubinemia. 2. Chronic obstructive pulmonary disease exacerbation. SECONDARY DIAGNOSES: 1. Heart failure with reduced ejection fraction. 2. Chronic obstructive pulmonary disease. 3. Atrial fibrillation. HISTORY OF PRESENT ILLNESS/HOSPITAL COURSE: Mr. Mónica Aldrich is a 58-year-old male, who is a frequent pt at our hospital who presents for acute shortness of breath. He has past medical history significant for COPD and heart failure with reduced ejection fraction. In the ER, the patient was given 80 mg of Lasix IV with morphine, steroid, and famotidine. He was determined to be in mild CHF exacerbation and was worked up for further management and evaluation. The patient was admitted for tele obs. He was diuresed successfully and started on nebulized inhalers. The patient initially had a minimal oxygen requirement, but later was stabilized and improved. The patient is feeling back to baseline and ready to go home. It was thought that perhaps the patient may be having difficulties and some unknown physiologic mechanism of absorbing Lasix, so he was switched to torsemide for potentially better diuresis at home because of his frequent heart failure exacerbations. It may also be possible that the patient is regularly noncompliant with his fluid restrictions and medication administration. DISCHARGE INSTRUCTIONS: Location: Home. Diet: Heart healthy, low-sodium. Fluid restriction: 1500 mL per day. Activity: As tolerated. Followup: Follow up with scheduled outpatient GI appointment this week and [facility] as scheduled. Job ID: [id number] MTDD
== END 2019-03-24 16:38 | disposition home or self-care (01) ==
LOC: ERS 16:22 → 2SW 20:40
PROVIDERS: ADMIT Family Medicine; ATTEND Family Medicine
DX: I11.0 Hypertensive heart disease with heart failure (principal); I50.23 Acute on chronic systolic (congestive) heart failure; J44.1 Chronic obstructive pulmonary disease with (acute) exacerbation; R10.9 Unspecified abdominal pain; E80.6 Other disorders of bilirubin metabolism; K59.00 Constipation, unspecified; M10.9 Gout, unspecified; G47.33 Obstructive sleep apnea (adult) (pediatric); I25.2 Old myocardial infarction; D53.9 Nutritional anemia, unspecified; R79.89 Other specified abnormal findings of blood chemistry; K76.1 Chronic passive congestion of liver; I48.91 Unspecified atrial fibrillation; Z87.891 Personal history of nicotine dependence; Z79.01 Long term (current) use of anticoagulants; Z79.899 Other long term (current) drug therapy; Z88.8 Allergy status to other drugs, medicaments and biological substances; Z91.041 Radiographic dye allergy status; Z95.810 Presence of automatic (implantable) cardiac defibrillator
CPT/HCPCS: 36415; 71045; 74177; 80048; 80053; 81003; 82550; 82553; 83690; 83880; 84484; 85025; 93005; 96374; 96375; 96376; G0378; J1200; J1940; J2270; J2930; J7512; J7620; Q9967; S0028

== ENCOUNTER 2019-03-26 04:33 | Emergency (ER) | payer MEDICARE, MEDICAID ==
[2019-03-26] MEDS ORDERED: Sucralfate 1 GM/10 ML UDCUP ONE (04:56)
[2019-03-26 05:53] LABS: ALT (SGPT) 25 U/L (8-55); AST (SGOT) 37 U/L (5-34); Albumin 3.7 g/dL (3.5-5.0); Alkaline Phosphatase 131 U/L (40-110); Anion Gap 20 mmol/L (10-20); BUN (Urea Nitrogen) 72 mg/dL (8.4-25.7); Calc. Creatinine Clearance 0 mL/min (70-130); Calcium 10.1 mg/dL (7.8-10.44); Carbon Dioxide 26 mmol/L (22-29); Chloride 93 mmol/L (98-107); Estimated GFR-MDRD 40; Globulin 4.1 g/dL (2.4-3.5); Glucose 91 mg/dL (70-105); Lipase 24 U/L (8-78); Potassium 4.4 mmol/L (3.5-5.1); Protein, Total 7.8 g/dL (6.0-8.3); Sodium 135 mmol/L (136-145)
[2019-03-26 06:06] LABS: #Basophils 0.1 thou/uL (0.0-0.2); #Monocytes 1.6 thou/uL (0.11-0.59); #Neutrophils 10.9 thou/uL (1.40-6.50); %Basophils 0.5 % (0.0-1.0); %Eosinophils 0.2 % (0.0-10.0); %Lymphocytes 13.7 % (21.0-51.0); %Monocytes 10.9 % (0.0-10.0); %Neutrophils 74.8 % (42.0-75.0); Band 1 % (5-11); Hemoglobin 14.6 g/dL (14.0-18.0); Lymphocytes 14 % (21-51); MDiff Complete? YES; Macrocytosis SLIGHT = 6-15 cells (100X) (0-5/hpf); Mean Corpuscular HGB CONC 32.2 g/dL (32.0-36.0); Monocytes 6 % (0-10); Neutrophil 79 % (42-75); Platelet Count 106 thou/uL (130-400); RBC Distribution Width 14.5 % (11.5-14.5); Red Blood Cell (RBC) Count 4.43 mill/uL (4.70-6.10); White Blood Cell (WBC) Count 14.6 thou/uL (4.8-10.8)
[2019-03-26] MEDS ORDERED: Furosemide 40 MG/4 ML VIAL ONE (06:13)
[2019-03-26 06:24] LABS: CKMB 6.1 ng/mL (0-6.6)
--- NOTE | 2019-03-26 07:49 | RAD ---
Exam: Chest one view HISTORY:Dyspnea Comparison: 03/23/2019 FINDINGS: Cardiac silhouette:Cardiomegaly. Aorta: Atherosclerosis of the aortic knob Pacemaker/defibrillator: Stable transvenous defibrillator terminates in the region right ventricle an d coronary sinus Pulmonary vessels: Normal Costophrenic angles: Clear LUNGS: No masses or consolidation. Pneumothorax: None Osseous abnormalities: None IMPRESSION: 1. Cardiomegaly. No evidence of congestive heart failure 2. Atherosclerosis.
== END 2019-03-26 06:17 | disposition home or self-care (01) ==
LOC: ERS 04:33
DX: I11.0 Hypertensive heart disease with heart failure (principal); I50.9 Heart failure, unspecified; J44.9 Chronic obstructive pulmonary disease, unspecified; I49.9 Cardiac arrhythmia, unspecified; I48.91 Unspecified atrial fibrillation; D50.9 Iron deficiency anemia, unspecified; M10.9 Gout, unspecified; G47.30 Sleep apnea, unspecified; K21.9 Gastro-esophageal reflux disease without esophagitis; F17.210 Nicotine dependence, cigarettes, uncomplicated; Z79.01 Long term (current) use of anticoagulants; Z79.899 Other long term (current) drug therapy; Z79.82 Long term (current) use of aspirin
CPT/HCPCS: 36415; 71045; 80053; 82553; 83690; 83880; 84484; 85025; 93005; 96374; J1940

== ENCOUNTER 2019-03-30 16:36 | Inpatient (IN) | payer MEDICARE, MEDICAID ==
--- NOTE | 2019-03-30 16:56 | RAD ---
Chest AP view INDICATION: Dyspnea with fluid overload COMPARISON: Prior exam dated March 26, 2019 FINDINGS: Lungs:The lungs are clear Cardiac silhouette:Stable cardiomegaly and multi lead AICD. Pulmonary vasculature:Normal Pleural spaces:Persistent small right pleural effusion. Upper abdomen:No abnormality seen. Osseous structures: No acute osseous abnormality. Additional findings:None. IMPRESSION: Stable cardiomegaly with small right pleural effusion
[2019-03-30 16:59] LABS: #Eosinphils 0.2 thou/uL (0.0-0.7); #Monocytes 1.6 thou/uL (0.11-0.59); #Neutrophils 9.1 thou/uL (1.40-6.50); %Basophils 0.2 % (0.0-1.0); %Eosinophils 1.5 % (0.0-10.0); %Lymphocytes 15.6 % (21.0-51.0); %Monocytes 12.4 % (0.0-10.0); %Neutrophils 70.3 % (42.0-75.0); Hemoglobin 14.5 g/dL (14.0-18.0); Mean Corpuscular HGB CONC 32.1 g/dL (32.0-36.0); Mean Corpuscular Hemoglobin 33.5 pg (27.0-31.0); Mean Platelet Volume 8.5 fL (7.4-10.4); Platelet Count 110 thou/uL (130-400); RBC Distribution Width 14.7 % (11.5-14.5); Red Blood Cell (RBC) Count 4.33 mill/uL (4.70-6.10); White Blood Cell (WBC) Count 12.9 thou/uL (4.8-10.8)
[2019-03-30 17:13] LABS: ALT (SGPT) 26 U/L (8-55); AST (SGOT) 44 U/L (5-34); Albumin 3.6 g/dL (3.5-5.0); Alkaline Phosphatase 190 U/L (40-110); Anion Gap 19 mmol/L (10-20); BUN (Urea Nitrogen) 26 mg/dL (8.4-25.7); CK (CPK) 168 U/L (30-200); Calc. Creatinine Clearance 0 mL/min (70-130); Calcium 9.6 mg/dL (7.8-10.44); Carbon Dioxide 31 mmol/L (22-29); Chloride 93 mmol/L (98-107); Estimated GFR-MDRD 68; Globulin 4.1 g/dL (2.4-3.5); Glucose 110 mg/dL (70-105); Potassium 3.3 mmol/L (3.5-5.1); Protein, Total 7.7 g/dL (6.0-8.3); Sodium 140 mmol/L (136-145)
[2019-03-30] MEDS ORDERED: Furosemide 40 MG/4 ML VIAL ONE (17:58)
--- NOTE | 2019-03-30 18:22 | PDOC.FPRHP ---
- History of Present Illness Chief Complaint: SOB History of Present Illness: Mr. Aldrich is a 58 y/o male with a PMH significant for frequent CHF exacerbations, CAD and COPD who presents to the ED for evaluation of SOB and swelling in his lower extremities. Pt came in last week and states was given a shot for the swelling. States that it didn't get much better. Pt reports that legs swollen so much he had some open sores dripping. He states that his SOB has been getting progressively worse, with associated symptoms of dry cough, VILLASEÑOR, PND and lower extremity edema. Pt reports epigastic pain. Reports some swelling in his belly. Pt reports having lots of gas. Denies any n/ v/d/c. Pt has not been able to sleep for last few days because of SOB. He states he has had no weight record changer the last week, but he has had increasing edema. ED Course: In the ED, he was found to have a BNP of 1912, Trop was 0.354 and is usually elevated to that level due to demand ischemia. - Allergies/Adverse Reactions Allergies Allergy/AdvReac Type Severity Reaction Status Date / Time iodine Allergy Mild Hives Verified 03/30/19 20:54 spironolactone Allergy Verified 03/30/19 20:54 - Home Medications Medication Instructions Recorded Confirmed Type Aspirin [Ecotrin Low Strength] 81 mg PO DAILY #0 tab 04/21/13 03/30/19 Rx Zolpidem Tartrate [Ambien] 10 mg PO HS PRN 08/20/18 03/30/19 History Carvedilol [Coreg] 3.125 mg PO BID #60 tab 11/05/18 03/30/19 Rx Cyclobenzaprine [Flexeril] 10 mg PO DAILY PRN 12/28/18 03/30/19 History Dexlansoprazole [Dexilant] 60 mg PO DAILY 12/28/18 03/30/19 History Fluticasone/Vilanterol [Breo 1 puff INH DAILY PRN 12/28/18 03/30/19 History Ellipta] HYDROcodone/Acetaminophen 1 - 2 tab PO Q4H PRN 12/28/18 03/30/19 History [Hydrocodone-Acetamin 10-325 mg] Iron,Carbonyl [Feosol] 325 mg PO DAILY 12/28/18 03/30/19 History Magnesium 200 mg PO DAILY 12/28/18 03/30/19 History Probenecid/Colchicine 1 tab PO BID 12/28/18 03/30/19 History [Probenecid-Colchicine Tablet] Atorvastatin Calcium 40 mg PO HS 03/19/19 03/30/19 History Bumetanide 1 mg PO DAILY 03/19/19 03/30/19 History Potassium Chloride 20 meq PO DAILY 03/19/19 03/30/19 History Apixaban [Eliquis] 5 mg PO BID 03/24/19 03/30/19 History Ipratropium/Albuterol Sulfate 3 ml NEB QID PRN #30 neb 03/24/19 03/30/19 Rx [Duoneb] Torsemide 20 mg PO DAILY #30 tablet 03/24/19 03/30/19 Rx predniSONE 40 mg PO QAM-WM #8 tab 03/24/19 03/30/19 Rx Sucralfate 1 gm PO PRN PRN 03/30/19 03/30/19 History - History PMHx: CHF, CAD, HTN, TIA, CKD PSHx: Multiple Pacemaker Placements / Revision FHx: Strong family history for HTN, CAD and [place] Social: Patient admits to social EtOH abuse and smoking 5-6 cigarettes daily in the past. He states he quit smoking and drinking alcohol a month ago.He denies drug abuse, but chart review revealed a history of methamphetamine abuse. Code: Full - Review of Systems General: denies: fever/chills, weight/appetite/sleep changes Eyes: denies: eye pain, vision changes ENT: denies: nasal congestion, rhinorrhea Respiratory: reports: shortness of breath Cardiovascular: reports: chest pain, edema, orthopnea. denies: palpitation Gastrointestinal: reports: abdominal pain. denies: nausea, vomiting, diarrhea, constipation Genitourinary: denies: incontinence, dysuria, polyuria Skin: reports: lesions (Has open oozing lesions in left leg). denies: rashes, jaundice Musculoskeletal: reports: swelling. denies: pain, tenderness, stiffness Neurological: reports: numbness (Reports numbness in his feet bilaterally). denies: syncope, seizure, weakness Psychological: denies: anxiety, depression - Vital signs BP: 130/102 HR: 60 RR: 20 Tmax: 98.9 Pox: 97% on RA Wt: 91.63 kg - Physical Exam Constitutional: awake, alert and oriented -Constitutional: Respiratory distress HEENT: normocephalic and atraumatic, PERRLA, EOMI, normal nasal mucosa, oropharynx clear -HEENT: Scleral icterus present, Dry mucous membranes Neck: supple, no LAD Chest: no-tender to palpation -Heart: Distant heart sounds, irregularly irregular rhythm Lungs: CTAB -Lungs: Respiratory distress -Abdomen: Pt has positive marino sign, tender to palpation in the epigastric and RUQ with guarding. Abdomen significantly distended. Musculoskeletal: normal structure, normal tone, ROM grossly normal Neurological: no focal deficit, CN II-XII intact, normal sensation -Skin: 2 1x1 cm Ulcerations on L anterior calf. Heme/Lymphatic: no unusual bruising or bleeding, no purpura Psychiatric: normal mood and affect FMR H&P: Results - Labs Result Diagrams: 03/30/19 16:45 03/30/19 16:45 Lab results: WBC 12.9 thou/uL (4.8-10.8) H 03/30/19 16:45 Hgb 14.5 g/dL (14.0-18.0) 03/30/19 16:45 Hct 45.2 % (42.0-52.0) 03/30/19 16:45 MCV 104.0 fL (78.0-98.0) H 03/30/19 16:45 Plt Count 110 thou/uL (130-400) L 03/30/19 16:45 Neutrophils % 70.3 % (42.0-75.0) 03/30/19 16:45 Sodium 140 mmol/L (136-145) 03/30/19 16:45 Potassium 3.3 mmol/L (3.5-5.1) L 03/30/19 16:45 Chloride 93 mmol/L (98-107) L 03/30/19 16:45 Carbon Dioxide 31 mmol/L (22-29) H 03/30/19 16:45 BUN 26 mg/dL (8.4-25.7) H 03/30/19 16:45 Creatinine 1.31 mg/dL (0.7-1.3) H 03/30/19 16:45 Glucose 110 mg/dL (70-105) H 03/30/19 16:45 Calcium 9.6 mg/dL (7.8-10.44) 03/30/19 16:45 Total Bilirubin 5.0 mg/dL (0.2-1.2) H 03/30/19 16:45 AST 44 U/L (5-34) H 03/30/19 16:45 ALT 26 U/L (8-55) 03/30/19 16:45 Alkaline Phosphatase 190 U/L (40-110) H 03/30/19 16:45 Creatine Kinase 168 U/L (30-200) 03/30/19 16:45 CK-MB (CK-2) 4.0 ng/mL (0-6.6) 03/30/19 16:45 B-Natriuretic Peptide 1912.5 pg/mL (0-100) H 03/30/19 16:45 Serum Total Protein 7.7 g/dL (6.0-8.3) 03/30/19 16:45 Albumin 3.6 g/dL (3.5-5.0) 03/30/19 16:45 - EKG Interpretation EKG: EKG shows ventricular pacing by pacemaker. - Radiology Interpretation Chest x-ray Status: image reviewed by me, report reviewed by me (Stable cardiomegaly w/ small r. pleural effusion) FMR H&P: A/P - Problem List (1) Acute exacerbation of CHF (congestive heart failure) Current Visit: No Status: Acute Code(s): I50.9 - HEART FAILURE, UNSPECIFIED Qualifiers: Heart failure type: systolic Qualified Code(s): I50.23 - Acute on chronic systolic (congestive) heart failure (2) Elevated troponin Current Visit: No Status: Acute Code(s): R74.8 - ABNORMAL LEVELS OF OTHER SERUM ENZYMES (3) Hyperbilirubinemia Current Visit: No Status: Acute Code(s): E80.6 - OTHER DISORDERS OF BILIRUBIN METABOLISM (4) LIT (obstructive sleep apnea) Current Visit: No Status: Acute Code(s): G47.33 - OBSTRUCTIVE SLEEP APNEA ( ADULT) (PEDIATRIC) (5) CKD (chronic kidney disease) stage 3, GFR 30-59 ml/min Current Visit: No Status: Chronic (6) GERD (gastroesophageal reflux disease) Current Visit: No Status: Chronic Code(s): K21.9 - GASTRO-ESOPHAGEAL REFLUX DISEASE WITHOUT ESOPHAGITIS Qualifiers: Esophagitis presence: without esophagitis Qualified Code(s): K21.9 - Gastro -esophageal reflux disease without esophagitis (7) Hypertension Current Visit: No Status: Chronic Priority: Medium Code(s): I10 - ESSENTIAL (PRIMARY) HYPERTENSION Qualifiers: Hypertension type: essential hypertension Qualified Code(s): I10 - Essential (primary) hypertension - Plan Patient is a 58 y/o male with a PMH of CHF, CAD, HTN, TIA and CKD currently admitted to the Telemetry Floor for CHF Exacerbation. 1. CHF Exacerbation Pt with symptoms of CHF exacerbation (cough, VILLASEÑOR, PND and lower extremity edema) , known EF 15-20% in 03/10/2019. * Lasix 40 mg IV BID * Required metolazone after not diuresing during past admission * Previous admission he was not taking Lasix and became relatively naive, so we will start at 40 and adjust according to output * Elevated BNP with unchanged EKG * Fluid restrict with Daily weights and Strict I/O's * Continue home Carvedilol * Started Losartan * Med list says Phoebe, but it was changed to Valsartan due to pt not being able to afford. He said Valsartan was not covered by insurance, so Losartan was started as it is on the 4 dollar list. * Re-referred to heart failure clinic and cardiac rehab and CM on to assist with D/c planning 2. NSTEMI: Elevated Troponins 2/2 Most Likely to Demand Ischemia Pt with baseline trop 0.3, during last 2 hospital visits. Pt denies any active chest pain and EKG with no signs of ST changes. * He had a clean cath in 01/13/19 * Trops: 0.354 * Will trend * Currently on ASA & Statin * Heart Healthy Diet incl. Low Sodium 3. CKD Cr: 1.31 * Baseline: 1.5 * Continue to diurese * Will monitor * Adjust Lasix dosage as needed if JOSE A becomes evident * Avoid other nephrotoxic agents 4. Chronic a-fib Pacer/AICD in place * Continue eliquis, coreg, amiodarone 5. HTN * BP stable * Continue home Coreg 6. Hx of TIA Patient denies symptoms consistent with TIA * Will monitor 7. COPD * DuoNebs Q4H PRN * Consider supplemental O2 if required * O2 Sats maintain abov 92% 8. LIT * CPAP for use at night ordered 9. HLD * Continue home atorvastatin 10. Hypokalemia K: 3.3 * Replaced PO * Will monitor & replace as needed * Will check his Mag * Start daily regimen 11. GERD Home Medication: Dexilant * Will continue home med and monitor Code: Full Diet: HHLso (< 1500 ml Daily) Activity: Ad chip VTE PPx: Josseline PCP: Doni Dispo: Telemetry Inpatient, continue fluid diuresis. Will trend I&O and daily weights as well as O2 status. Expected LOS > 48H. Pt also reported to us having diabetes. Last A1c was checked in 2013. Will check at this time as this problem is not noted in multiple of his recent admissions. FMR H&P: Upper Level - Pertinent history I was present Dr. Bart Sinha during the HPI. I scribed the above document. I made edits as needed. See above for details. - Pertinent findings General: Pt in bed. Pt having some increased work of breathing at times Cardio: Regular rate and rhythm. No murmurs or gallops Resp: Pt having some resp distress noted. Crackles noted bilaterally. Abdomen: Mod distended. Belly tender more in RUQ, some guarding noted. No masses noted. Ext: +4 pitting edema up to knees. Has some open sores. - Plan Date/Time: 03/30/191821 I, Gonzalez Wilkerson, PGY-3, have evaluated this patient and agree with findings/ plan as outlined by marketing intern resident. Pertinent changes/additions are listed here. I made edits to the above plan as needed. See above for detailed plan. At this time it appears pt is in acute CHF exacerbation. Will start with IV lasix to help with symptoms. Will monitor labs. Trop elevated to .3 but has chronically been there at recent past hospitilizations. Pt denies chest pain. Will trend. Pt also has elevated liver enzymes and bili. Likely 2/2 congestion from the heart failure. Pt did have some RUQ tenderness. Will trend CMP. If doesn't improve with lasix would consider abdominal US. Will continue home meds for HTN and HLD. Will place on mild SSI for DMII. Will check A1c.
[2019-03-30] MEDS ORDERED: Senokot S 8.6-50 MG TAB PO PRN (19:09)
[2019-03-30] MEDS ORDERED: Acetaminophen 325 MG TAB PO PRN (19:09)
[2019-03-30] MEDS ORDERED: Ondansetron PF 4 MG/2 ML Vial IVP PRN (19:09)
[2019-03-30] MEDS ORDERED: Ondansetron ODT 4 MG TAB PO PRN (19:09)
[2019-03-30] MEDS ORDERED: Potassium Chloride 20 MEQ TAB PO SCH (20:15)
[2019-03-30 22:19] LABS: Troponin I 0.368 ng/mL (< 0.028)
[2019-03-30 22:22] VITALS: BMI 28.7
[2019-03-30] MEDS ORDERED: Cyclobenzaprine 10 MG TAB PO PRN (23:25)
[2019-03-30] MEDS ORDERED: Sucralfate 1 GM TAB PO PRN (23:25)
[2019-03-30] MEDS ORDERED: Zolpidem Tartrate 5 MG TAB PO PRN (23:45)
[2019-03-31 02:16] LABS: Critical Call Chem Troponin I RESULT DECREASING; Troponin I 0.328 ng/mL (< 0.028)
[2019-03-31 04:53] LABS: #Basophils 0.1 thou/uL (0.0-0.2); #Eosinphils 0.2 thou/uL (0.0-0.7); #Lymphocytes 1.7 thou/uL (1.20-3.40); #Monocytes 1.7 thou/uL (0.11-0.59); #Neutrophils 9.8 thou/uL (1.40-6.50); %Basophils 0.5 % (0.0-1.0); %Eosinophils 1.1 % (0.0-10.0); %Lymphocytes 12.7 % (21.0-51.0); %Monocytes 12.5 % (0.0-10.0); %Neutrophils 73.2 % (42.0-75.0); Hemoglobin 13.6 g/dL (14.0-18.0); Mean Corpuscular HGB CONC 31.1 g/dL (32.0-36.0); Mean Corpuscular Hemoglobin 32.1 pg (27.0-31.0); Mean Platelet Volume 8.9 fL (7.4-10.4); Platelet Count 107 thou/uL (130-400); RBC Distribution Width 14.5 % (11.5-14.5); Red Blood Cell (RBC) Count 4.24 mill/uL (4.70-6.10); White Blood Cell (WBC) Count 13.3 thou/uL (4.8-10.8)
[2019-03-31 04:55] LABS: Hemoglobin A1c 5.5 % (4.0-6.0)
[2019-03-31 05:10] LABS: ALT (SGPT) 31 U/L (8-55); AST (SGOT) 57 U/L (5-34); Albumin 3.4 g/dL (3.5-5.0); Alkaline Phosphatase 175 U/L (40-110); Anion Gap 13 mmol/L (10-20); BUN (Urea Nitrogen) 26 mg/dL (8.4-25.7); Calc. Creatinine Clearance 89 mL/min (70-130); Calcium 9.6 mg/dL (7.8-10.44); Carbon Dioxide 34 mmol/L (22-29); Chloride 92 mmol/L (98-107); Estimated GFR-MDRD 77; Globulin 3.8 g/dL (2.4-3.5); Glucose 117 mg/dL (70-105); Protein, Total 7.2 g/dL (6.0-8.3); Sodium 136 mmol/L (136-145)
[2019-03-31] MEDS: Furosemide 40 MG/4 ML VIAL SLOW IVP SCH ×2 (05:25→15:43)
[2019-03-31] MEDS: Mometasone/Formoterol 120 PUFF INHALER INH SCH ×2 (07:05→18:12)
[2019-03-31] MEDS: Ferrous Sulfate 325 MG TAB PO SCH (08:14)
[2019-03-31] MEDS: Apixaban 5 MG TAB PO SCH ×2 (08:14→20:43)
[2019-03-31] MEDS: Magnesium Oxide 400 MG TAB PO SCH (08:14)
[2019-03-31] MEDS: Carvedilol 3.125 MG TAB PO SCH ×2 (08:14→20:43)
[2019-03-31] MEDS: Losartan 25 MG TAB PO SCH (08:14)
[2019-03-31] MEDS: Potassium Chloride 20 MEQ TAB PO SCH (08:14)
[2019-03-31] MEDS: Aspirin 81 mg Enteric Coated Tablet PO SCH (08:14)
[2019-03-31] MEDS ORDERED: PROBENECID PO SCH (09:00)
[2019-03-31] MEDS ORDERED: COLCHICINE PO SCH (09:00)
--- NOTE | 2019-03-31 09:31 | PDOC.FM ---
- Subjective Subjective: Pt doing well this morning, no acute events overnight. States SOB is much improved, LE edema much improved. Knows he had CHF exacerbation 2/2 medication noncompliance. States will work on taking medications. Denies any fever/chills/ CP. Mild RUQ pain but improved per pt, has had for months with previous workup. - Objective MAR Reviewed: Yes Vital Signs & Weight: Vital Signs (12 hours) Temp Pulse Resp BP Pulse Ox 03/31/19 07:23 96.6 F L 74 15 133/90 98 03/31/19 03:10 97.4 F L 97 20 129/90 95 03/30/19 23:00 97.3 F L 80 20 144/72 H 95 Weight Weight 93.304 kg I&O: 03/30/19 03/31/19 04/01/19 06:59 06:59 06:59 Intake Total 600 Output Total 1900 Balance -1300 Result Diagrams: 03/31/19 04:23 03/31/19 04:23 Phys Exam - Physical Examination Constitutional: NAD (resting comfortably in bed, in good spirits) HEENT: moist MMs Neck: no nodes, supple Respiratory: no wheezing, no rales Very mild ronchi BL bases, good aeration Cardiovascular: RRR, no significant murmur, no rub Gastrointestinal: soft, no distention, positive bowel sounds Mild RUQ pain, no rebound or guarding 2+ pitting edema to below knees BL Neurological: non-focal, normal sensation, moves all 4 limbs Psychiatric: normal affect, A&O x 3 Dx/Plan (1) Acute exacerbation of CHF (congestive heart failure) Code(s): I50.9 - HEART FAILURE, UNSPECIFIED Status: Acute Qualifiers: Heart failure type: systolic Qualified Code(s): I50.23 - Acute on chronic systolic (congestive) heart failure (2) Elevated troponin Code(s): R74.8 - ABNORMAL LEVELS OF OTHER SERUM ENZYMES Status: Acute (3) HLD (hyperlipidemia) Code(s): E78.5 - HYPERLIPIDEMIA, UNSPECIFIED Status: Acute (4) Hyperbilirubinemia Code(s): E80.6 - OTHER DISORDERS OF BILIRUBIN METABOLISM Status: Acute - Plan Plan: Patient is a 58 y/o male with a PMH of CHF, CAD, HTN, TIA and CKD currently admitted to the Telemetry Floor for CHF Exacerbation. #CHF Exacerbation - presented with sxs of cough, VILLASEÑOR, PND and LE edema - Known EF 15-20% from ECHO on 03/10/2019 - Lasix 40mg IV BID, diuresing well, will cont and monitor fluid status - BNP 1911, similar to previous admissions - Fluid restriction, strict I's and O's, daily weights - Cont home Coreg, will start Losartan. Was on Entresto but changed to Valsartan 2/2 ins coverage but valsartan is also not covered by ins - Known to HF clinic, consulted cardiac rehab for assistance and d/c planning #NSTEMI: Elevated Troponins 2/2 Most Likely to Demand Ischemia - Trops trended x3 and stable - Baseline trop 0.3 at previous admissions - no acute sxs of CP, no ST changes on tele or EKG - Had clean cath on 01/13/19 - Cont ASA and Statin - HH, low Na diet #CKD - Cr: 1.31, baseline 1.5 - Cont diuresis and monitor - Avoid nephrotoxic drugs #Chronic a-fib - Pacer/AICD in place - Continue eliquis, coreg, amiodarone #HTN - BP stable, Cont home Coreg #COPD - DuoNebs Q4H PRN, no s/s of acute exacerbation, satting well on RA #LIT - CPAP at night prn #HLD -Continue home atorvastatin #Hypokalemia - K 3.3, replaced PO at admission - Repeat 3.0, will replace - Mg pending #GERD - cont home dexilant Code: Full Diet: HHLso (< 1500 ml Daily) Activity: Ad chip VTE PPx: Eliquis PCP: Doni Dispo: Telemetry Inpatient, continue fluid diuresis. Will trend I&O and daily weights as well as O2 status. Expected LOS > 48H. Addendum - Attending - Attending Attestation Date/Time: 03/31/192041 I personally evaluated the patient and discussed the management with Dr. Sinha I agree with the History, Examination, Assessment and Plan documented above with any addition or exceptions noted below. Patient with history of significance medical noncompliance.
[2019-03-31] MEDS ORDERED: Potassium Chloride 20 MEQ TAB PO SCH (10:00)
--- NOTE | 2019-03-31 14:16 | ULT ---
EXAM: Bilateral lower extremity venous ultrasound HISTORY: Patient is undergoing wound care. Evaluate for thrombus. COMPARISON: None TECHNIQUE: Multiplanar grayscale and color Doppler images were obtained in a bilateral lower extremit y venous ultrasound. Spectral analysis of the Doppler waveforms were performed. FINDINGS: The bilateral common femoral vein, profunda femoral veins, superficial femoral veins, and p opliteal veins are normal in appearance without visible thrombus. These vessels demonstrate normal compression, flow, and augmentation. The bilateral posterior tibial veins, profunda femoral veins and greater saphenous veins are patent w ithout evidence of DVT. IMPRESSION: No evidence of DVT in the left or right lower extremity.
[2019-03-31] MEDS ORDERED: Atorvastatin Calcium 40 MG TAB PO SCH (21:00)
[2019-04-01] MEDS ORDERED: [UNRECOGNIZED DRUG - REMARK] IVPB PRN (02:47)
[2019-04-01 04:50] LABS: #Basophils 0.1 thou/uL (0.0-0.2); #Eosinphils 0.4 thou/uL (0.0-0.7); #Lymphocytes 1.8 thou/uL (1.20-3.40); #Monocytes 1.5 thou/uL (0.11-0.59); #Neutrophils 9.9 thou/uL (1.40-6.50); %Basophils 0.5 % (0.0-1.0); %Eosinophils 2.9 % (0.0-10.0); %Lymphocytes 13.1 % (21.0-51.0); %Neutrophils 72.6 % (42.0-75.0); Hemoglobin 13.9 g/dL (14.0-18.0); Mean Corpuscular HGB CONC 32.8 g/dL (32.0-36.0); Mean Corpuscular Hemoglobin 33.9 pg (27.0-31.0); Mean Platelet Volume 8.9 fL (7.4-10.4); Platelet Count 104 thou/uL (130-400); RBC Distribution Width 14.7 % (11.5-14.5); White Blood Cell (WBC) Count 13.6 thou/uL (4.8-10.8)
[2019-04-01] MEDS: Furosemide 40 MG/4 ML VIAL SLOW IVP SCH (05:08)
[2019-04-01 05:10] LABS: ALT (SGPT) 34 U/L (8-55); AST (SGOT) 60 U/L (5-34); Albumin 3.3 g/dL (3.5-5.0); Alkaline Phosphatase 191 U/L (40-110); Anion Gap 14 mmol/L (10-20); BUN (Urea Nitrogen) 27 mg/dL (8.4-25.7); Bilirubin, Total 4.8 mg/dL (0.2-1.2); Calc. Creatinine Clearance 92 mL/min (70-130); Calcium 9.8 mg/dL (7.8-10.44); Carbon Dioxide 31 mmol/L (22-29); Chloride 93 mmol/L (98-107); Estimated GFR-MDRD 80; Glucose 93 mg/dL (70-105); Potassium 3.7 mmol/L (3.5-5.1); Protein, Total 7.3 g/dL (6.0-8.3); Sodium 134 mmol/L (136-145)
--- NOTE | 2019-04-01 06:59 | PDOC.FM ---
- Subjective Subjective: Doing well this morning, in good spirits, no acute events overnight. Tolerating PO well. Voiding without difficulty. SOB resolved. No cough, fever/chills, CP, n /v. Ambulating without difficulty. Knows he needs to f/u with PCP and HF clinic this week post-discharge for close monitoring and to continue home meds to try to prevent rehospitalization. - Objective MAR Reviewed: Yes Vital Signs & Weight: Vital Signs (12 hours) Temp Pulse Resp BP Pulse Ox 04/01/19 03:28 98.1 F 88 20 130/85 93 L 03/31/19 20:00 97.5 F L 81 18 120/82 95 Weight Admit Weight 93.395 kg Weight 92.76 kg I&O: 03/30/19 03/31/19 04/01/19 06:59 06:59 06:59 Intake Total 600 1560 Output Total 1900 2220 Balance -1300 -660 Result Diagrams: 04/01/19 04:22 04/01/19 04:22 Phys Exam - Physical Examination Constitutional: NAD (resting comfortably, good spirits.) HEENT: PERRLA, moist MMs Neck: supple Respiratory: no wheezing, no rales, no rhonchi, clear to auscultation bilateral Cardiovascular: RRR, no significant murmur, no rub Gastrointestinal: soft, non-tender, no distention, positive bowel sounds Musculoskeletal: pulses present, edema present (1+ pitting to mid-[place], decreased, compression stockings in place) Neurological: non-focal, moves all 4 limbs Psychiatric: normal affect, A&O x 3 Dx/Plan (1) Acute exacerbation of CHF (congestive heart failure) Code(s): I50.9 - HEART FAILURE, UNSPECIFIED Status: Acute Qualifiers: Heart failure type: systolic Qualified Code(s): I50.23 - Acute on chronic systolic (congestive) heart failure (2) Elevated troponin Code(s): R74.8 - ABNORMAL LEVELS OF OTHER SERUM ENZYMES Status: Chronic (3) HLD (hyperlipidemia) Code(s): E78.5 - HYPERLIPIDEMIA, UNSPECIFIED Status: Chronic (4) Hyperbilirubinemia Code(s): E80.6 - OTHER DISORDERS OF BILIRUBIN METABOLISM Status: Chronic - Plan Plan: Patient is a 58 y/o male with a PMH of CHF, CAD, HTN, TIA and CKD currently admitted to the Telemetry Floor for CHF Exacerbation. #CHF Exacerbation, improved - presented with sxs of cough, VILLASEÑOR, PND and LE edema - Known EF 15-20% from ECHO on 03/10/2019 - Lasix 40mg IV BID, diuresing well, will transition to PO in anticipation of discharge. Will likely need increase to 40mg daily in AM as OP and close monitoring. - BNP 191, similar to previous admissions - Fluid restriction, strict I's and O's, daily weights - down 0.7kg from admission weight - Cont home Coreg, cont Losartan. Was on Entresto but changed to Valsartan 2/2 ins coverage but valsartan is also not covered by ins so using losartan - Known to HF clinic, consulted cardiac rehab for assistance and d/c planning #NSTEMI: Elevated Troponins 2/2 Demand Ischemia from CHF exacerbation - Trops trended x3 and stable. Baseline trop 0.3 at previous admissions - no acute sxs of CP, no ST changes on tele or EKG - Had clean heart cath on 01/13/19 - Cont ASA and Statin - HH, low Na diet #CKD II - Cr: 1.31 -> 1.14 - Cont diuresis and monitor - Avoid nephrotoxic drugs #Chronic a-fib - Pacer/AICD in place - Continue eliquis, coreg, amiodarone #HTN - BP stable, Cont home Coreg #COPD - DuoNebs Q4H PRN, no s/s of acute exacerbation, satting well on RA #LIT - CPAP at night prn #HLD -Continue home atorvastatin #Hypokalemia , resolved - Replaced, resolved #Hypomag - 1.5, replaced, will need OP monitoring #GERD - cont home dexilant Code: Full Diet: HHLso (< 1500 ml Daily) Activity: Ad chip VTE PPx: Eliquis PCP: Doni Dispo: Telemetry Inpatient, continue fluid diuresis. Sxs improved and nearing resolution. Anticipation discharge today pending clinical course. Addendum - Attending - Attending Attestation Date/Time: 04/01/19 [id number] I personally evaluated the patient and discussed the management with Dr. Sinha I agree with the History, Examination, Assessment and Plan documented above with any addition or exceptions noted below. Stressed importance of f/u with HF clinic. d/c home.
[2019-04-01] MEDS: Mometasone/Formoterol 120 PUFF INHALER INH SCH (07:25)
[2019-04-01] MEDS ORDERED: Magnesium Oxide 400 MG TAB PO SCH (09:00)
[2019-04-01] MEDS ORDERED: PROBENECID PO SCH (09:00)
[2019-04-01] MEDS ORDERED: COLCHICINE PO SCH (09:00)
[2019-04-01] MEDS: Ferrous Sulfate 325 MG TAB PO SCH (09:49)
[2019-04-01] MEDS: Aspirin 81 mg Enteric Coated Tablet PO SCH (09:50)
[2019-04-01] MEDS: Carvedilol 3.125 MG TAB PO SCH (09:50)
[2019-04-01] MEDS: Losartan 25 MG TAB PO SCH (09:50)
[2019-04-01] MEDS: Apixaban 5 MG TAB PO SCH (09:50)
[2019-04-01] MEDS: Potassium Chloride 20 MEQ TAB PO SCH (09:50)
[2019-04-01] MEDS: Magnesium Oxide 400 MG TAB PO SCH (09:51)
[2019-04-01 12:23] VITALS: BP 121/85; TEMP 98.4
[2019-04-02] MEDS ORDERED: Furosemide 40 MG TAB PO SCH (07:30)
--- NOTE | 2019-04-02 12:17 | DIS ---
DATE OF ADMISSION: 03/30/2019 DATE OF DISCHARGE: 04/01/2019 RESIDENT: Donovan Sinha MD ADMITTING ATTENDING: Dr. Dionicio Antony. DISCHARGE ATTENDING: Dr. Kamran Ferrell. CONSULTS: None. PROCEDURES: 1. Chest x-ray on 03/30/2019 demonstrating stable cardiomegaly with a right small pleural effusion. 2. Venogram on 03/31/2019 demonstrating no evidence of DVT in either lower extremity. PRIMARY DIAGNOSES: 1. Acute congestive heart failure exacerbation. 2. [id number] myocardial infarction secondary to demand ischemia from congestive heart failure exacerbation. SECONDARY DIAGNOSES: 1. Chronic kidney disease stage 2. 2. Chronic atrial fibrillation. 3. Hypertension. 4. Chronic obstructive pulmonary disease. 5. Obstructive sleep apnea. 6. Hyperlipidemia. 7. Gastroesophageal reflux disease. 8. Hypomagnesemia, replaced. DISCHARGE MEDICATIONS: 1. Aspirin 81 mg p.o. daily. 2. Ambien 10 mg p.o. at bedtime p.r.n. 3. Carvedilol 3.125 mg p.o. b.i.d. 4. Breo Ellipta 100 mcg/25 mcg one puff daily p.r.n. 5. Iron 325 mg p.o. daily. 6. Probenecid-colchicine 1 tab p.o. b.i.d. 7. Dexilant 60 mg p.o. daily. 8. Ripley 10/325 one to two tablets q.4 hours p.r.n. 9. Flexeril 10 mg p.o. daily p.r.n. 10. Magnesium 200 mg p.o. daily. 11. Bumetanide 1 mg p.o. daily. 12. Potassium chloride 10 mEq p.o. daily. 13. Atorvastatin 40 mg p.o. at bedtime. 14. Eliquis 5 mg p.o. b.i.d. 15. DuoNeb q.i.d. p.r.n. 16. Carafate 1 g p.o. p.r.n. 17. Lasix 40 mg p.o. daily. 18. Losartan 12.5 mg p.o. daily. DISCONTINUED MEDICATIONS: 1. Torsemide 20 mg p.o. daily. 2. Prednisone 40 mg p.o. q.a.m. HISTORY OF PRESENT ILLNESS AND HOSPITAL COURSE: The patient is a pleasant 58-year-old male with past medical history of CHF with frequent admissions for exacerbations as well as CAD and COPD, who presented to the ED for evaluation of shortness of breath and swelling of his bilateral lower extremities. The patient was recently admitted about a week prior for CHF exacerbation and was intermittently improving; however, was discharged home and unable to obtain some of his medications and did not follow up with the [facility] Failure [facility] and has had return of his symptoms. He says that his lower extremities has had some weeping. He also endorsed symptoms of dry cough, dyspnea on exertion, PND, and mild swelling of his abdomen. He denied any nausea, vomiting, diarrhea, or constipation. He states that he has had increased weight over the last few days as well. In the emergency department, he was found to have a BNP of 1912 and a troponin of 0.354, both of which are near baseline after record review. He was then admitted for acute CHF exacerbation, further evaluation and management. Once on the floor, he was started on IV Lasix 40 mg b.i.d. His home medications were continued. The patient stated that he was initially placed on Entresto; however, was unable to afford this secondary to his insurance coverage. He was changed to valsartan, which is also not covered by his insurance and at this hospitalization, he was started on lisinopril with adequate control of his blood pressure. The patient's troponins were trended and remained stable. He was monitored on telemetry with no acute events and did not have any acute chest pain. Over the course of his hospitalization, his shortness of breath continued to improve dramatically and resolved completely. His lower extremity edema continued to improve. Wound Care was consulted. I performed a Doppler ultrasound, it was negative and then placed the patient in compression stockings with continued improvement in his lower extremity edema. The patient was then transitioned to p.o. Lasix. The patient does have elevated liver enzymes and hyperbilirubinemia. On records review, this is chronic and stable in nature. The patient did not have any abdominal pain, nausea, vomiting, diarrhea, constipation, or other alarm symptoms. Workup has been done in the past to address this issue and is likely secondary to hepatic congestion secondary to right heart failure. At the time of discharge, the patient was ambulating in the halls and outside without any problem, tolerating p.o. well and on p.o. medications. The patient was instructed that it was important that he is to follow up with the Heart failure Clinic and his primary care doctor, both by the end of the week to have a weight check and adjustment of medications as needed. It was discussed with the patient that he would be discharged on increased dose of Lasix 40 mg daily and to obtain daily weights and call the [facility] Failure Clinic with any significant change and any worsening of his symptoms. The patient voiced agreement understanding of the discharge plan, and followup was appropriate and said that he had access to all of the current medications that we are discharging him on home with. Of note, the patient did have a low magnesium of 1.5 at the time of discharge, he was replaced with IV supplementation and continued on his maintenance magnesium dose, this will need to be rechecked as an outpatient. DISPOSITION: Stable. DISCHARGE INSTRUCTIONS: 1. Location: Home. 2. Diet: Heart healthy with restricted fluid. 3. Activity as tolerated. 4. Followup: The patient is to follow up with the Heart failure Clinic and primary care physician by the end of the week. Job ID: [id number]
== END 2019-04-01 14:53 | disposition home or self-care (01) | DRG 280 ==
LOC: ERS 16:36 → 2NO 19:55
PROVIDERS: ADMIT Family Medicine; ATTEND Family Medicine
DX: I13.0 Hypertensive heart and chronic kidney disease with heart failure and stage 1 through stage 4 chronic kidney disease, or unspecified chronic kidney disease (principal); I50.23 Acute on chronic systolic (congestive) heart failure; I21.A1 Myocardial infarction type 2; I48.20 Chronic atrial fibrillation, unspecified; I25.10 Atherosclerotic heart disease of native coronary artery without angina pectoris; J44.9 Chronic obstructive pulmonary disease, unspecified; N18.2 Chronic kidney disease, stage 2 (mild); G47.33 Obstructive sleep apnea (adult) (pediatric); K21.9 Gastro-esophageal reflux disease without esophagitis; D63.1 Anemia in chronic kidney disease; M10.9 Gout, unspecified; E87.6 Hypokalemia; Z91.14 Patient's other noncompliance with medication regimen; E83.42 Hypomagnesemia; Z88.8 Allergy status to other drugs, medicaments and biological substances; Z91.041 Radiographic dye allergy status; Z79.82 Long term (current) use of aspirin; Z79.899 Other long term (current) drug therapy; Z79.51 Long term (current) use of inhaled steroids; Z79.52 Long term (current) use of systemic steroids; Z79.01 Long term (current) use of anticoagulants; Z86.73 Personal history of transient ischemic attack (TIA), and cerebral infarction without residual deficits; Z87.891 Personal history of nicotine dependence; Z95.810 Presence of automatic (implantable) cardiac defibrillator; E78.5 Hyperlipidemia, unspecified
CPT/HCPCS: 36415; 71045; 80053; 82550; 82553; 83036; 83735; 83880; 84484; 85025; 93005; 93970; 96374; J1940; J3475; J3490

== ENCOUNTER 2019-04-08 05:13 | Emergency (ER) | payer MEDICARE, MEDICAID ==
[2019-04-08] MEDS ORDERED: Nitroglycerin 2% Ointment 1 INCH/1 GM Packet ONE (05:26)
[2019-04-08] MEDS ORDERED: Furosemide 20 MG/2 ML VIAL ONE (05:26)
[2019-04-08 05:58] LABS: #Basophils 0.1 thou/uL (0.0-0.2); #Eosinphils 0.1 thou/uL (0.0-0.7); #Lymphocytes 1.1 thou/uL (1.20-3.40); #Monocytes 1.1 thou/uL (0.11-0.59); #Neutrophils 10.2 thou/uL (1.40-6.50); %Basophils 0.8 % (0.0-1.0); %Eosinophils 0.5 % (0.0-10.0); %Lymphocytes 8.6 % (21.0-51.0); %Monocytes 8.8 % (0.0-10.0); %Neutrophils 81.3 % (42.0-75.0); Hemoglobin 13.2 g/dL (14.0-18.0); Mean Corpuscular Hemoglobin 32.9 pg (27.0-31.0); Mean Platelet Volume 9.4 fL (7.4-10.4); Platelet Count 95 thou/uL (130-400); RBC Distribution Width 15.6 % (11.5-14.5); White Blood Cell (WBC) Count 12.5 thou/uL (4.8-10.8)
[2019-04-08 06:18] LABS: ALT (SGPT) 29 U/L (8-55); AST (SGOT) 44 U/L (5-34); Albumin 3.6 g/dL (3.5-5.0); Alkaline Phosphatase 161 U/L (40-110); Anion Gap 18 mmol/L (10-20); BUN (Urea Nitrogen) 32 mg/dL (8.4-25.7); Bilirubin, Total 4.6 mg/dL (0.2-1.2); CK (CPK) 165 U/L (30-200); Calc. Creatinine Clearance 0 mL/min (70-130); Calcium 9.8 mg/dL (7.8-10.44); Carbon Dioxide 27 mmol/L (22-29); Chloride 97 mmol/L (98-107); Estimated GFR-MDRD 70; Globulin 4.1 g/dL (2.4-3.5); Glucose 107 mg/dL (70-105); Lipase 16 U/L (8-78); Potassium 3.8 mmol/L (3.5-5.1); Protein, Total 7.7 g/dL (6.0-8.3); Sodium 138 mmol/L (136-145)
[2019-04-08 06:46] LABS: CKMB 5.7 ng/mL (0-6.6)
[2019-04-08 07:34] LABS: Bacteria/HPF None Seen HPF (None Seen); Bilirubin Negative (Negative); Blood, Urine Trace (Negative); Clarity Clear (Clear); Glucose, Urine (Dipstick) Normal (Negative); Leukocyte Negative Leu/uL (Negative); Nitrite Negative (Negative); Protein, Urine (Dipstick) Negative (Neg-Trace); Squamous Epithelial 0-3 HPF (0-3); Urobilinogen 3 mg/dL (Less than 2); WBC/HPF 0-3 HPF (0-3)
--- NOTE | 2019-04-08 07:36 | RAD ---
EXAM: Single view of the chest HISTORY: Dyspnea COMPARISON: 03/30/2019 FINDINGS: Single view of the chest shows an enlarged but stable cardiomediastinal silhouette. The pa cemaker is unchanged in position. There is no evidence of consolidation, mass, or pleural effusion. The bones are unremarkable. IMPRESSION: No evidence of acute cardiopulmonary disease
== END 2019-04-08 10:20 | disposition home or self-care (01) ==
LOC: ERS 05:13
DX: R33.9 Retention of urine, unspecified (principal); I11.0 Hypertensive heart disease with heart failure; I50.9 Heart failure, unspecified; I48.91 Unspecified atrial fibrillation; G47.30 Sleep apnea, unspecified; F17.210 Nicotine dependence, cigarettes, uncomplicated; I34.1 Nonrheumatic mitral (valve) prolapse; K21.9 Gastro-esophageal reflux disease without esophagitis; J44.9 Chronic obstructive pulmonary disease, unspecified; Z79.82 Long term (current) use of aspirin; Z79.899 Other long term (current) drug therapy; Z79.891 Long term (current) use of opiate analgesic
CPT/HCPCS: 51702; 71045; 80053; 81003; 81015; 82550; 82553; 83690; 83880; 84484; 85025; 87086; 93005; 96374; J1940

== ENCOUNTER 2019-04-08 20:25 | Emergency (ER) | payer MEDICARE, MEDICAID | END 2019-04-08 22:31 | disposition home or self-care (01) | LOC: ERS 20:25 | DX: T83.84XA Pain due to genitourinary prosthetic devices, implants and grafts, initial encounter (principal); I11.0 Hypertensive heart disease with heart failure; I50.9 Heart failure, unspecified; J44.9 Chronic obstructive pulmonary disease, unspecified; I49.9 Cardiac arrhythmia, unspecified; I48.91 Unspecified atrial fibrillation; D50.9 Iron deficiency anemia, unspecified; M19.90 Unspecified osteoarthritis, unspecified site; G47.30 Sleep apnea, unspecified; K21.9 Gastro-esophageal reflux disease without esophagitis; F17.210 Nicotine dependence, cigarettes, uncomplicated; Z71.6 Tobacco abuse counseling; Z79.02 Long term (current) use of antithrombotics/antiplatelets; Z79.82 Long term (current) use of aspirin; Z79.899 Other long term (current) drug therapy | CPT/HCPCS: 51702; 71045; 80053; 81003; 81015; 82550; 82553; 83690; 83880; 84484; 85025; 87086; 93005; 96374; 99406; J1940 ==

== ENCOUNTER 2019-05-01 13:50 | Inpatient (IN) | payer MEDICARE, MEDICAID ==
[~2019-05-01 13:50] MED LIST changes: -Iopamidol-370 76% 500 ML 1 ML ONE; +Succinylcholine Chloride 20 MG/ML 10 ml SYRINGE FS ONE
[2019-05-01 14:28] LABS: Mean Corpuscular HGB CONC 31.7 g/dL (32.0-36.0); Mean Corpuscular Hemoglobin 32.5 pg (27.0-31.0); Mean Platelet Volume 10.5 fL (7.4-10.4); Platelet Count 74 thou/uL (130-400); RBC Distribution Width 15.6 % (11.5-14.5)
[2019-05-01 14:47] LABS: ALT (SGPT) 14 U/L (8-55); AST (SGOT) 24 U/L (5-34); Albumin 3.6 g/dL (3.5-5.0); Alkaline Phosphatase 175 U/L (40-110); Anion Gap 18 mmol/L (10-20); BUN (Urea Nitrogen) 62 mg/dL (8.4-25.7); Bilirubin, Total 7.5 mg/dL (0.2-1.2); Calc. Creatinine Clearance 0 mL/min (70-130); Calcium 9.6 mg/dL (7.8-10.44); Carbon Dioxide 30 mmol/L (22-29); Chloride 90 mmol/L (98-107); Estimated GFR-MDRD 42; Glucose 98 mg/dL (70-105); Potassium 4.1 mmol/L (3.5-5.1); Protein, Total 7.6 g/dL (6.0-8.3); Sodium 134 mmol/L (136-145)
[2019-05-01 14:55] LABS: Anisocytosis SLIGHT = 6-15 cells (100X) (0-5/hpf); Band 8 % (5-11); Eosinophils 1 % (0-10); Hypochromia SLIGHT = 6-15 cells (100X) (0-5/hpf); Lymphocytes 7 % (21-51); MDiff Complete? YES; Macrocytosis SLIGHT = 6-15 cells (100X) (0-5/hpf); Monocytes 12 % (0-10); Neutrophil 67 % (42-75); Platelet Morphology Comment Appears Decreased; Polychromasia MODERATE = 3-4 cells (100X) (0-2/hpf); Reactive Lymphocytes 5 % (0-10); Target Cells SLIGHT = 2-5 cells (100X) (0-1/hpf)
--- NOTE | 2019-05-01 15:12 | RAD ---
PORTABLE CHEST ONE VIEW: 05/01/19 at 2:22 p.m. HISTORY: Shortness of breath. FINDINGS: Comparison made with exam of 04/08/19. Cardiomegaly and right sided AICD are again seen. No lobar consolidation, merlin pulmonary edema, pneu mothoraces or pleural effusions are seen. IMPRESSION: No acute process. POS: ESTRADA
[2019-05-01] MEDS ORDERED: Cefepime 2 GM VIAL ONE (16:08)
--- NOTE | 2019-05-01 16:23 | ULT ---
Exam: Right upper quadrant ultrasound: HISTORY: Right upper quadrant abdominal pain with fever and nausea. COMPARISON: 03/19/2019 FINDINGS: Liver: Within normal limits. There is distention of the hepatic veins which could be secondary to rig ht heart dysfunction. Gallbladder: Gallbladder is again noted to be mildly contracted but is more distended than on the nishi or exam. Again noted is nonspecific mild gallbladder wall thickening with a gallbladder wall measuring 0.4 cm in thickness. No gallbladder calculus is visualized. Common bile duct: The common duct is normal in caliber measuring 0.3 cm in diameter. Pancreas: Mostly obscured and not well evaluated on this exam. Right kidney: Right kidney demonstrates a normal sonographic appearance. The right kidney measures 1 3.7 cm in length. IVC: The visualized IVC demonstrates a normal sonographic appearance. Small amount of intraperitoneal free fluid is seen in the right upper quadrant adjacent to the liver. IMPRESSION: Persistent mild gallbladder wall thickening. There is a small amount of fluid adjacent to the gallbla dder, but there is evidence of intraperitoneal free fluid adjacent to the right hepatic lobe, and the fluid adjacent to the gallbladder may also be attributable to ascites as opposed to pericholecyst ic fluid. Given persistence of gallbladder wall thickening and right upper quadrant pain, a hepatobiliary study may be helpful for further evaluation.
[2019-05-01] MEDS ORDERED: Morphine 4 MG/ML VIAL ONE (17:10)
[2019-05-01 18:26] LABS: Bilirubin 1+ (Negative); Blood, Urine Negative (Negative); Clarity Clear (Clear); Glucose, Urine (Dipstick) Normal (Negative); Leukocyte Negative Leu/uL (Negative); Nitrite Negative (Negative); Protein, Urine (Dipstick) 20 mg/dL (Neg-Trace); Urobilinogen 12 mg/dL (Less than 2)
--- NOTE | 2019-05-01 20:32 | PDOC.FPRHP ---
- History of Present Illness Chief Complaint: abd pain, fever History of Present Illness: 58yo AAM with h/o CHF, CAD, HTN, CKD presents for abdominal cramps, body aches, watery BM, cough, nausea, vomiting, and abd distension. Pt was at usual state of health until approx 0200 with acute onset of sxs. Denies any CP, dyspnea, congestion. Does endorse subjective fever and chills. Taking home medications as prescribed. No LE edema. Abd pain improved with BM. ED Course: Flu indeterminate, 1L NS and NS @ 150cc/hr. Vanc and cefepime. Met sepsis criteria. - Allergies/Adverse Reactions Allergies Allergy/AdvReac Type Severity Reaction Status Date / Time iodine Allergy Mild Hives Verified 05/02/19 00:41 spironolactone Allergy Verified 05/02/19 00:41 - Home Medications Medication Instructions Recorded Confirmed Type Aspirin [Ecotrin Low Strength] 81 mg PO DAILY #0 tab 04/21/13 05/02/19 Rx Zolpidem Tartrate [Ambien] 10 mg PO HS PRN 08/20/18 05/02/19 History Carvedilol [Coreg] 3.125 mg PO BID #60 tab 11/05/18 05/02/19 Rx Cyclobenzaprine [Flexeril] 10 mg PO DAILY PRN 12/28/18 05/02/19 History Dexlansoprazole [Dexilant] 60 mg PO DAILY 12/28/18 05/02/19 History HYDROcodone/Acetaminophen 1 - 2 tab PO Q4H PRN 12/28/18 05/02/19 History [Hydrocodone-Acetamin 10-325 mg] Iron,Carbonyl [Feosol] 325 mg PO DAILY 12/28/18 05/02/19 History Magnesium 200 mg PO DAILY 12/28/18 05/02/19 History Probenecid/Colchicine 1 tab PO BID 12/28/18 05/02/19 History [Probenecid-Colchicine Tablet] Atorvastatin Calcium 40 mg PO HS 03/19/19 05/02/19 History Bumetanide 1 mg PO DAILY 03/19/19 05/02/19 History Apixaban [Eliquis] 5 mg PO BID 03/24/19 05/02/19 History Ipratropium/Albuterol Sulfate 3 ml NEB QID PRN #30 neb 03/24/19 05/02/19 Rx [DuoNeb] Sucralfate 1 gm PO PRN PRN 03/30/19 05/02/19 History Losartan [Cozaar] 12.5 mg PO DAILY #30 tab 04/01/19 05/02/19 Rx Acetaminophen [Tylenol Regular 650 mg PO Q6H PRN tab 05/14/19 Rx Strength] Potassium Chloride [K-Dur] 20 meq PO DAILY #90 tab 05/15/19 Rx - History PMHx: CHF, CAD, HTN, TIA, CKD PSHx: Multiple Pacemaker Placements / Revision FHx: Strong family history for HTN, CAD and MN Social: Patient admits to social EtOH abuse and smoking 5-6 cigarettes daily in the past. He states he quit smoking and drinking alcohol a month ago.He denies drug abuse, but chart review revealed a history of methamphetamine abuse. - Review of Systems General: reports: fever/chills, weight/appetite/sleep changes, night sweats, fatigue Eyes: denies: vision changes ENT: denies: nasal congestion, rhinorrhea Respiratory: reports: cough, congestion. denies: shortness of breath Cardiovascular: denies: chest pain, edema Gastrointestinal: reports: nausea, vomiting, diarrhea, abdominal pain. denies: GI bleeding Genitourinary: denies: incontinence, dysuria Skin: denies: rashes - Vital signs BP: 102/78 HR: 77 RR: 17 Tmax: 101 Pox: 99% on RA Wt: 82kg - Physical Exam Constitutional: NAD (ill-appearing but nontoxic), awake, alert and oriented, well developed, other (A/O x4) HEENT: PERRLA, EOMI, oropharynx clear, other (eye irritation, dry MM) Neck: supple, trachea midline Heart: RRR, normal S1/S2, no murmurs/rubs/gallops, pulses present, no edema Lungs: CTAB, no respiratory distress, good air movement, no rales/rhonchi, no wheezing Abdomen: soft, bowel sounds present, other (mildly distended. Neg Kee, small reducible umbilical hernia. Mildly ttp over mid-abd, no rebound or guarding.) Musculoskeletal: normal structure, normal tone Neurological: no focal deficit Skin: no rash/lesions Psychiatric: normal mood and affect, good judgment and insight, intact recent and remote memory, other (a/o x4) FMR H&P: Results - Labs Result Diagrams: 05/12/19 07:15 05/15/19 04:28 Lab results: WBC 12.0 thou/uL (4.8-10.8) H 05/01/19 14:13 Hgb 12.0 g/dL (14.0-18.0) L 05/01/19 14:13 Hct 37.9 % (42.0-52.0) L 05/01/19 14:13 MCV 102.0 fL (78.0-98.0) H 05/01/19 14:13 Plt Count 74 thou/uL (130-400) L 05/01/19 14:13 Band Neuts % (Manual) 8 % (5-11) 05/01/19 14:13 Sodium 134 mmol/L (136-145) L 05/01/19 14:13 Potassium 4.1 mmol/L (3.5-5.1) 05/01/19 14:13 Chloride 90 mmol/L (98-107) L 05/01/19 14:13 Carbon Dioxide 30 mmol/L (22-29) H 05/01/19 14:13 BUN 62 mg/dL (8.4-25.7) H 05/01/19 14:13 Creatinine 1.99 mg/dL (0.7-1.3) H 05/01/19 14:13 Glucose 98 mg/dL (70-105) 05/01/19 14:13 Lactic Acid 1.9 mmol/L (0.5-2.2) 05/01/19 14:13 Calcium 9.6 mg/dL (7.8-10.44) 05/01/19 14:13 Total Bilirubin 7.5 mg/dL (0.2-1.2) H 05/01/19 14:13 AST 24 U/L (5-34) 05/01/19 14:13 ALT 14 U/L (8-55) 05/01/19 14:13 Alkaline Phosphatase 175 U/L (40-110) H 05/01/19 14:13 Serum Total Protein 7.6 g/dL (6.0-8.3) 05/01/19 14:13 Albumin 3.6 g/dL (3.5-5.0) 05/01/19 14:13 Urine Ketones Negative mg/dL (Negative) 05/01/19 18:20 Urine Blood Negative (Negative) 05/01/19 18:20 Urine Nitrite Negative (Negative) 05/01/19 18:20 Ur Leukocyte Esterase Negative Froylan/uL (Negative) 05/01/19 18:20 - Radiology Interpretation Chest x-ray Status: image reviewed by me (AICD in place. small focal consolidation on RLL), report reviewed by me US - abdomen Status: report reviewed by me (mild gallbladder wall thickening, rec HIDA scan) FMR H&P: A/P - Problem List (1) CKD (chronic kidney disease) stage 3, GFR 30-59 ml/min Status: Chronic (2) Chronic atrial fibrillation Status: Chronic Code(s): I48.2 - CHRONIC ATRIAL FIBRILLATION * DO NOT USE * (3) Chronic systolic (congestive) heart failure Status: Chronic Code(s): I50.22 - CHRONIC SYSTOLIC (CONGESTIVE) HEART FAILURE Comment: ACC/AHA stage C (4) HLD (hyperlipidemia) Status: Chronic Code(s): E78.5 - HYPERLIPIDEMIA, UNSPECIFIED (5) Hyperbilirubinemia Status: Chronic Code(s): E80.6 - OTHER DISORDERS OF BILIRUBIN METABOLISM - Plan 58yo AAM with h/o CHF, CAD, HTN, TIA, CKD presents for sepsis 2/2 suspected influenza w/ possible RLL PNA #Sepsis 2/2 suspected influenza w/ possible RLL PNA - symptoms c/w influenza, flu swab inconclusive, will start on tamiflu - HR >90, fever to 101F in ED, RR 24, WBC 12 - CXR with possible RLL infiltrate; read by radiologist as normal - No O2 requirements currently - Patient given Vanc and Cefepime in ED - Procal pending - UA neg, Urine culture pending - Blood cultures pending - LA 1.9 # Hyperbilirubinemia - Tbili 7.5, has been trending up from past admissions - Continue to trend - Will obtain direct bilirubin - RUQ ultrasound performed; CBD normal at 0.3 cm - RUQ with persistent gallbladder wall thickening and possible pericholecystic fluid vs 2/2 ascites; recommend HIDA scan for further evaluation - Given Vanc and Cefepime in ED for presumed cholecystitis - AST/ALT WNL today, but they have been elevated in the past - Will repeat Hep panel as patient had Hep B core ab reactive in past - HIDA scan for AM, NPO at [place] - possible explanation for abd, but also likely 2/2 influenza #JOSE A on CKD II - BUN 62, Cr 2.04 - Appears volume down, will gently fluid resuscitate - Cr 1.27 at previous visit in Mar - Baseline GFR appears to be around 70 - GFR on admission 42 #Chronic Macrocytic anemia, likely anemia of chronic disease - Hb 12, B12 and folate have been checked recently and WNL - Continue to trend #Thrombocytopenia - Platelets 74 - Have been low in the past - Continue to trend #GERD - H. pylori IgA and IgG positive in february, but IgM neg; likely infected in past, but treated #HLD - Continue statin #LIT - Will order CPAP #COPD - Duonebs PRN #Chronic a-fib - Pacer/AICD in place - On eliquis, coreg, amiodarone #HFrEF - Does not appear to be in exacerbation - EF 15-20% in 03/10/2019 - Will hold lasix at this time given volume down #HTN - Continue home medications PCP: Doni DVT PPX: SCD's Code status: Full, discussed with patient Diet: HHLso, fluid restriction VTE: SCDs Disposition/LOS: Dispo: Admit to telemetry. Anticipate LOS >48 hours. FMR H&P: Upper Level - Pertinent history 58 year old AA male well known to our service presents with a 1-2 day history subjective fever, chills, body aches, cough, congestion, rhinorrhea. Patient states that his HF nurse came to check on him this afternoon and he wasn't feeling well. He was feeling very nauseous and requested to go the ED. Patient states he has been doing very well with his HF medications. He denies shortness of breath except after coughing, chest pain. He endorses two episodes of watery stool today. Patient endorses abdominal pain located in the center of his abdomen. He denies RUQ pain. - Pertinent findings General: Alert and oriented x3. No acute distress. HEENT: Dry MMM. PERRL. No notable pharyngeal erythema. Card: RRR, No appreciable murmur. Resp: Difficult to ascertain breath sounds, but no appreciable rhonchi, rales, or crackles Abdomen: Mildly distended, soft, TTP in center of abdomen around umbilicus, negative kee's sign Ext: No cyanosis or edema appreciated Neuro: No focal deficits, A&Ox3 - Plan Date/Time: 05/01/192031 I, Ricarda Dobbins, have evaluated this patient and agree with findings/plan as outlined by electrical engineering intern resident. Pertinent changes/additions are listed here. Sepsis 2/2 suspected influenza w/ possible RLL PNA - symptoms c/w influenza, will start on tamiflu - HR >90, fever to 101F in ED, RR 24, WBC 12 - CXR with possible RLL infiltrate; read by radiologist as normal - No O2 requirements currently - Patient given Vanc and Cefepime in ED - Procal pending - UA neg, Urine culture pending - Blood cultures pending - LA 1.9 Leukocytosis - WBC 12 with no significant bandemia - WBC has been higher on past admissions - Continue to trend Macrocytic anemia - B12 and folate have been checked recently and WNL - Continue to trend Thrombocytopenia - Platelets 74 - Have been low in the past - Continue to trend JOSE A on CKD - BUN 62, Cr 2.04 - Appears volume down, will gently fluid resuscitate - Cr 1.27 at previous visit in Mar - Baseline GFR appears to be around 70 - GFR on admission 42 Hyperbilirubinemia - Tbili 7.5, has been trending up from past admissions - Continue to trend - Will obtain direct bilirubin - RUQ ultrasound performed; CBD normal at 0.3 cm - RUQ with persistent gallbladder wall thickening and possible pericholecystic fluid vs 2/2 ascites; recommend HIDA scan for further evaluation - Given Vanc and Cefepime in ED for presumed cholecystitis - AST/ALT WNL today, but they have been elevated in the past - Will repeat Hep panel as patient had Hep B core ab reactive in past GERD - H. pylori IgA and IgG positive in february, but IgM neg; likely infected in past, but treated HLD - Continue statin LIT - Will order CPAP COPD - Duonebs PRN Chronic a-fib - Pacer/AICD in place - On eliquis, coreg, amiodarone HFrEF - Does not appear to be in exacerbation - EF 15-20% in 03/10/2019 - Will hold lasix at this time given volume down HTN - Continue home medications DVT PPX: SCD's Code status: Full, discussed with patient Diet: HHLso, fluid restriction Dispo: Admit to telemetry. Anticipate LOS >48 hours. Addendum - Attending - Attending Attestation Date/Time: 05/16/19 1017 I personally evaluated the patient and discussed the management with Dr. Sinha I agree with the History, Examination, Assessment and Plan documented above with any addition or exceptions noted below - see event note from same day for details of admission.
[2019-05-01] MEDS ORDERED: HYDROcodone/Acetaminophen 5/325 mg Tablet PO PRN ×2 (21:37)
[2019-05-01] MEDS ORDERED: Acetaminophen 325 MG TAB PO PRN ×2 (21:37→21:55)
[2019-05-01] MEDS ORDERED: Ondansetron ODT 4 MG TAB SL PRN (21:37)
[2019-05-01] MEDS ORDERED: Ondansetron PF 4 MG/2 ML Vial IVP PRN ×2 (21:37→21:55)
[2019-05-01] MEDS ORDERED: Sodium Chloride 0.9% 1,000 ML IV SCH (21:45)
[2019-05-01] MEDS ORDERED: Calcium Carbonate 500 MG ChewTAB PO PRN (21:55)
[2019-05-01] MEDS ORDERED: Ondansetron ODT 4 MG TAB PO PRN (21:55)
[2019-05-01] MEDS ORDERED: Enoxaparin Sodium 40 MG/0.4 ML SYRINGE SC SCH (22:00)
[2019-05-01] MEDS ORDERED: Oseltamivir 75 MG CAP PO SCH (22:15)
[2019-05-01] MEDS ORDERED: Lorazepam 2 MG/ML VIAL ONE (22:20)
[2019-05-01 22:41] LABS: Hemoglobin 12.9 g/dL (14.0-18.0); Mean Corpuscular Hemoglobin 33.2 pg (27.0-31.0); RBC Distribution Width 15.8 % (11.5-14.5)
[2019-05-01] MEDS ORDERED: Dextrose 50 % In Water 50 ML SYRINGE ONE (22:43)
[2019-05-01] MEDS ORDERED: CCU Electrolyte Replacement 1 EACH IVPB ONE (22:43)
[2019-05-01] MEDS ORDERED: SYSTANE 3.5 GM TUBE EA EYE PRN (22:43)
[2019-05-01] MEDS ORDERED: Acetaminophen 650 MG Suppository PR PRN (22:43)
[2019-05-01] MEDS: Propofol 1,000 MG/100 ML VIAL IV PRN (22:43)
[2019-05-01] MEDS ORDERED: Vancomycin HCl 1 GM in Premix Bag 1 BAG IVPB SCH (22:45)
[2019-05-01] MEDS ORDERED: Ventilator Sedation Protocol 1 EACH FS SCH (22:45)
[2019-05-01 22:48] LABS: Lactic Acid 8.4 mmol/L (0.5-2.2)
[2019-05-01 22:49] LABS: Bilirubin, Direct 6.8 mg/dL (0.1-0.3); Bilirubin, Total 9.5 mg/dL (0.2-1.2)
[2019-05-01] MEDS ORDERED: Fentanyl BOLUS 250 ML IVPB PRN (22:51)
[2019-05-01] MEDS ORDERED: fentaNYL Citrate/PF 2,000 MCG in Sodium Chloride 0.9% 60 ML IV SCH (22:51)
[2019-05-01] MEDS ORDERED: DISCONTINUE PREVIOUS NARCOTIC PAIN MEDICATIONS AND BENZODIAZEPINES FS SCH (22:51)
[2019-05-01] MEDS ORDERED: Propofol BOLUS 1,000 MG/100 ML VIAL IV PRN (22:51)
[2019-05-01] MEDS ORDERED: Morphine 2 MG/ML SYRINGE SLOW IVP PRN (22:51)
[2019-05-01] MEDS ORDERED: Potassium Chloride 40 MEQ in Sodium Chloride 0.9% 250 ML 250 ML IVPB PRN (22:53)
[2019-05-01] MEDS ORDERED: CCU ELECTROLYTE REPLACEMENT PROTOCOL FS PRN (22:53)
[2019-05-01] MEDS ORDERED: PHOS-NAK 1 PKT PACK PO PRN ×2 (22:53)
[2019-05-01] MEDS ORDERED: Potassium Phosphate 15 MMOL in Sodium Chloride 0.9% 250 ML 250 ML IV PRN (22:53)
[2019-05-01] MEDS ORDERED: Potassium Chloride 20 MEQ TAB PO PRN (22:53)
[2019-05-01] MEDS ORDERED: Magnesium Oxide 400 MG TAB PO PRN ×2 (22:53)
[2019-05-01] MEDS ORDERED: Potassium Chloride 40 MEQ in Premix Bag 1 BAG IVPB PRN (22:53)
[2019-05-01] MEDS ORDERED: Potassium Phosphate 9 MMOL in Sodium Chloride 0.9% 100 ML IVPB PRN (22:53)
[2019-05-01] MEDS ORDERED: Potassium Phosphate 12 MMOL in Sodium Chloride 0.9% 250 ML 250 ML IV PRN (22:53)
[2019-05-01] MEDS ORDERED: Magnesium 2 GM/50 ML 2 GM in Premix Bag 1 BAG IVPB PRN (22:53)
[2019-05-01 22:54] LABS: Anisocytosis SLIGHT = 6-15 cells (100X) (0-5/hpf); Band 5 % (5-11); Lymphocytes 29 % (21-51); MDiff Complete? YES; Mean Platelet Volume 10.5 fL (7.4-10.4); Monocytes 18 % (0-10); Neutrophil 48 % (42-75); Platelet Count 66 thou/uL (130-400); Platelet Morphology Comment Appears Decreased; White Blood Cell (WBC) Count 16.7 thou/uL (4.8-10.8)
[2019-05-01] MEDS ORDERED: Magnesium Sulfate 3 GM in Sodium Chloride 0.9% 100 ML IVPB SCH (23:00)
--- NOTE | 2019-05-01 23:06 | RAD ---
Chest AP view INDICATION: Chest pain COMPARISON: May 01, 2019 2:22 PM FINDINGS: Lungs: The lungs are clear Cardiac silhouette: There is stable cardiomegaly. Pulmonary vasculature: There is worsening mild pulmonary vascular congestion. Pleural spaces: No pleural effusion or pneumothorax is demonstrated. Upper abdomen: No abnormality seen. Osseous structures: No acute osseous abnormality. Additional findings: Right-sided AICD is unchanged. The patient has been intervally intubated. The E T tube tip is seen 3.2 cm from the level of the ness. There is been interval placement of a gastric catheter that projects below the left hemidiaphragm and beyond the [id number]. IMPRESSION: Interval intubation and gastric catheter placement. There is persistent moderate cardiomegaly with no w mild pulmonary vascular congestion suggesting a component of CHF.
--- NOTE | 2019-05-01 23:07 | PDOC.EVN ---
Event Note - Event Note Event Note: 58 year old male admitted for sepsis. Received page at approximately 22:00. Came and evaluated patient. Was having rigors and complaining of SOB and abd pain. Examined, lungs CTAB, RRR no murmurs, abd distended and diffuse TTP but no rebound or guarding, no acute abd. Pt was A/O x4 at this time and also confirmed his full code status. While in room and placing orders with nurse, upper resident arrived for further eval and Pt had seizure. Please see below note for further eval, course, and management. Upper level attestation: I received call from business analyst intern just after 22:00 asking me to come evaluate patient due to concerns about respiratory status. Labs had already been drawn and CXR ordered prior to my evaluation. Upon arrival to room, patient shaking and gasping. I started to ask him a question when his eyes suddenly rolled to the back of his head and he had a generalized tonic clonic seizure. He then stopped breathing and went into cardiac arrest. Patient was given 2 mg of Ativan, a cod was called, and CPR was initiated. Pulse quickly returned. Patient intubated with size 7.5 ET tube using glidescope. At time of intubation it was noted patient had likely bit his tongue as there was some blood in glidescope. Patient was stabilized and transferred to ICU A6 and placed on ventilator with sedation using propofol. BP's stable at the time of transfer. Patient started on broad spectrum antibiotics and tamiflu continued. CT brain and abdomen obtained. Unable to do CT w/ contrast given kidney function. Patient not requiring pressors at this time. Patient stable. Discussed events with patient' s sister. EKG ordered. Will follow up on results of imaging and labs and adjust management accordingly. Dr. Botello notified of patient transfer to ICU. After review of telemetry, it appears that patient went into torsades --> vifib , and then was administered shock by AICD, resulting in ROSC. Patient given 1g Mg. Ricarda Dobbins DO PGY-3 Addendum - Attending - Attending Attestation Date/Time: 05/02/19 0438 Responded to code Blue. I personally evaluated the patient and discussed the management with Dr. Nav Sinha and Mu. Briefly this is a 58 year old AA male who presented with a 1-2 day history subjective fever, chills, body aches, cough, congestion, rhinorrhea. Patient states that his HF nurse came to check on him this afternoon and he wasn't feeling well. He was feeling very nauseous and requested to go the ED. He denies shortness of breath except after coughing, chest pain. He endorses two episodes of watery stool today. Patient endorses abdominal pain located in the center of his abdomen. He denies RUQ pain. Admitted for possible cholecystitis versus influenza versus other viral illness. On my arrival, patient was noticed to be actively seizing. Ativan 2 mg given. Pulse was also not detectable so chest compressions were in progress. At pulse check patient noticed to have a pulse and compressions were stopped. Due to cardiac arrest, pt was intubated with glidescope and #7.5 ETT after receiving etomidate and succinylcholine on second attempt. Tube placement confirmed by auscultation and color change with CO2 detector. Patient transferred to ICU. On review of the rhythm strips- patient had torsades that then degenerated into v-fib and then AICD fired with resumption of sinus rhythym. Patient given magnesium sulfate. Family updated on patient's condition and pulmonary consulted. T in ER 101 [id number] BP 132/94 P67 Lungs- CTA b/l; few scattered rhomchi CV- RRR no murmur Abd- soft; nt/nd Ext- 1+ edema b/l A/P: 1) s/p cardiac arrest with ROSC Admit to ICU Continue vent support Pulmonary consulted Labs pending 2) Fever uncertain source Continue empiric antibiotics Blood and urine cultures pending 3) Seizure possibly secondary to arrest Continue to monitor 4) Torsades Given magnesium in ICU Will recheck magnesium level in AM 5) CKD Monitor I/Os; repeat labs 6) HFrEF Monitor I/Os
--- NOTE | 2019-05-01 23:08 | RAD ---
ABDOMEN ONE VIEW INDICATION: Abdominal pain and gastric catheter placement COMPARISON: None FINDINGS: Bowel gas: Nonspecific but without overt appearance of obstruction. Lung bases: Clear. Additional findings: There is a gastric catheter projecting in the region of the proximal gastric bod y. There is a temperature probe projecting in the region of the bladder. There are moderate vascular calcifications seen involving the visualized vasculature. Osseous structures: No acute osseous abnormality is demonstrated. There is scattered degenerative and osteoarthritic change present. IMPRESSION: 1. No acute abnormality. 2. Gastric catheter tip projecting in the region of the proximal gastric body. 3. Temperature probe in the region of the bladder.
[2019-05-01 23:10] LABS: Actual Bicarbonate (HCO3a) 18.3 mEq/L (22-28); Base Excess (BEa) -6.2 mEq/L (-2.0 to +3.0); Calcium, Ionized 1.13 mmol/L (1.12-1.30); Carboxyhemoglobin (COHb) 1.3 gm% (0.0-3.0); O2 Tension (PaO2) 145.1 mmHg (80.0-100.0); Potassium - ABG Lab 4.72 mmol/L (3.70-5.30); pH, Arterial 7.36 (7.35-7.45)
[2019-05-01 23:26] LABS: ALT (SGPT) 14 U/L (8-55); AST (SGOT) 26 U/L (5-34); Albumin 3.8 g/dL (3.5-5.0); Alkaline Phosphatase 170 U/L (40-110); Anion Gap 26 mmol/L (10-20); BUN (Urea Nitrogen) 59 mg/dL (8.4-25.7); Bilirubin, Total 9.7 mg/dL (0.2-1.2); Calc. Creatinine Clearance 0 mL/min (70-130); Calcium 9.6 mg/dL (7.8-10.44); Carbon Dioxide 23 mmol/L (22-29); Chloride 91 mmol/L (98-107); Estimated GFR-MDRD 41; Globulin 4.2 g/dL (2.4-3.5); Glucose 81 mg/dL (70-105); Potassium 4.2 mmol/L (3.5-5.1); Sodium 136 mmol/L (136-145)
[2019-05-01 23:29] LABS: INR-International Normal Ratio 1.4; PTT 34.6 SEC (22.9-36.1); Prothrombin Time 17.1 SEC (12.0-14.7)
[2019-05-01 23:33] LABS: HBCM Index 0.11 S/CO (0-0.79); HBSAg Index 0.27 S/CO (0-0.99); Hep B Surf Ag Non-Reactive S/CO (NonReactive); Hep C IgG Ab Non-Reactive (NonReactive); Hep C Index 0.35 S/CO (0-0.79); Hepatitis B Core IgM Abs Non-Reactive (NonReactive)
[2019-05-01 23:36] LABS: Puncture Site LBA
[2019-05-01 23:38] LABS: HBSAB Concentration 790.18 mIU/mL; Hep B Surf AB Reactive (NonReactive)
[2019-05-01 23:47] LABS: Anisocytosis SLIGHT = 6-15 cells (100X) (0-5/hpf); Band 2 % (5-11); Eosinophils 1 % (0-10); Hemoglobin 12.7 g/dL (14.0-18.0); Lymphocytes 42 % (21-51); MDiff Complete? YES; Mean Corpuscular HGB CONC 31.1 g/dL (32.0-36.0); Mean Corpuscular Hemoglobin 33.3 pg (27.0-31.0); Mean Platelet Volume 10.8 fL (7.4-10.4); Monocytes 14 % (0-10); Neutrophil 40 % (42-75); Platelet Count 72 thou/uL (130-400); Platelet Morphology Comment Appears Decreased; RBC Distribution Width 15.8 % (11.5-14.5); Red Blood Cell (RBC) Count 3.81 mill/uL (4.70-6.10); White Blood Cell (WBC) Count 16.8 thou/uL (4.8-10.8)
[2019-05-02] MEDS ORDERED: Vancomycin HCl 750 MG in Sodium Chloride 0.9% 250 ML 250 ML IVPB SCH (01:00)
[2019-05-02] MEDS: Acetaminophen 325 MG TAB PO PRN ×4 (02:08→21:26)
[2019-05-02] MEDS: Lorazepam 2 MG/ML VIAL SLOW IVP PRN ×2 (03:51→06:34)
[2019-05-02 03:55] LABS: Phosphorus 2.9 mg/dL (2.3-4.7)
[2019-05-02 03:58] LABS: ALT (SGPT) 14 U/L (8-55); AST (SGOT) 40 U/L (5-34); Albumin 3.1 g/dL (3.5-5.0); Alkaline Phosphatase 133 U/L (40-110); Anion Gap 20 mmol/L (10-20); BUN (Urea Nitrogen) 65 mg/dL (8.4-25.7); Bilirubin, Total 9.2 mg/dL (0.2-1.2); Calc. Creatinine Clearance 37 mL/min (70-130); Calcium 9.5 mg/dL (7.8-10.44); Carbon Dioxide 25 mmol/L (22-29); Chloride 93 mmol/L (98-107); Estimated GFR-MDRD 32; Globulin 3.9 g/dL (2.4-3.5); Glucose 92 mg/dL (70-105); Magnesium 1.4 mg/dL (1.6-2.6); Potassium 3.7 mmol/L (3.5-5.1); Sodium 134 mmol/L (136-145)
[2019-05-02] MEDS ORDERED: Cefepime 2 GM in Sodium Chloride 0.9% 100 ML IVPB SCH (04:00)
[2019-05-02] MEDS ORDERED: Vancomycin HCl 1 GM in Premix Bag 1 BAG IVPB SCH (05:00)
[2019-05-02 05:19] LABS: Hemoglobin 11.5 g/dL (14.0-18.0); Mean Corpuscular HGB CONC 32.7 g/dL (32.0-36.0); Mean Corpuscular Hemoglobin 33.5 pg (27.0-31.0); Mean Platelet Volume 10.6 fL (7.4-10.4); Platelet Count 60 thou/uL (130-400); RBC Distribution Width 15.6 % (11.5-14.5); Red Blood Cell (RBC) Count 3.43 mill/uL (4.70-6.10); White Blood Cell (WBC) Count 15.5 thou/uL (4.8-10.8)
[2019-05-02 05:20] LABS: Band 12 % (5-11); Eosinophils 2 % (0-10); Lymphocytes 13 % (21-51); MDiff Complete? YES; Monocytes 11 % (0-10); Neutrophil 62 % (42-75); Platelet Morphology Comment Appears Decreased
[2019-05-02] MEDS: Propofol 1,000 MG/100 ML VIAL IV PRN (06:00)
--- NOTE | 2019-05-02 06:11 | PDOC.FM ---
- Subjective Subjective: Sister at bedside states that he had been feeling bad for a few days but no sick contacts. Nursing reports since she has had him, minimal urine output. She reports he has been waking up but also has low BPs with the sedation protocol. She also reports a fever. - Objective MAR Reviewed: Yes Vital Signs & Weight: Vital Signs (12 hours) Temp Resp 05/02/19 02:00 103.2 F H 16 05/02/19 00:00 19 05/01/19 22:45 100.1 F H Weight Weight 82.4 kg Most Recent Monitor Data Heart Rate from ECG 66 NIBP 97/63 NIBP BP-Mean 74 Respiration from ECG 22 SpO2 97 I&O: 04/30/19 05/01/19 05/02/19 06:59 06:59 06:59 Intake Total 350 Output Total 5 Balance 345 Result Diagrams: 05/02/19 03:21 05/02/19 03:21 Phys Exam - Physical Examination Sedated HEENT: PERRLA Dry mm Neck: no JVD Coarse lungs sounds, but good air movement, no crackles Cardiovascular: RRR 2/6 systolic murmur Gastrointestinal: soft, no distention, positive bowel sounds Musculoskeletal: no edema, pulses present Sedation blunts exam Skin: cap refill <2 seconds Dx/Plan (1) Sepsis Code(s): A41.9 - SEPSIS, UNSPECIFIED ORGANISM Status: Acute (2) Acute and chronic respiratory failure with hypoxia Code(s): J96.21 - ACUTE AND CHRONIC RESPIRATORY FAILURE WITH HYPOXIA Status: Acute (3) Acute kidney injury superimposed on CKD Code(s): N17.9 - ACUTE KIDNEY FAILURE, UNSPECIFIED; N18.9 - CHRONIC KIDNEY DISEASE, UNSPECIFIED Status: Acute (4) HLD (hyperlipidemia) Code(s): E78.5 - HYPERLIPIDEMIA, UNSPECIFIED Status: Chronic (5) Hypertension Code(s): I10 - ESSENTIAL (PRIMARY) HYPERTENSION Status: Chronic Qualifiers: Hypertension type: essential hypertension Qualified Code(s): I10 - Essential (primary) hypertension (6) Macrocytic anemia Code(s): D53.9 - NUTRITIONAL ANEMIA, UNSPECIFIED Status: Chronic - Plan Plan: This is a 58 yo male with a pmh of COPD, HFrEF, CKD2, HTN Hospital Day 1 Code: Full DVT prophylaxis: SCDs GI prophylaxis: Pepcid Family: Sister at bedside Fluids: LR 50ml/hr Drips: Propofol 10mcg/kg/hr Plastic: ET/NG tube, ram, IV right forearm and left forearm Vent settings: SIMV 14/minute, TV500, PS 18, Fio2 35, Peep 5 Plan: Work to wean from vent, treat sepsis, work up hyperbilirubinemia Acute hypoxic respiratory failure 2/2 seizure vs. ventricular tachycardia -Pt moved to ICU, intubated and sedated -Respiratory support -Dr. Jacobs, pulmonology consulted Torsades de pointes -Currently paced -S/P magnesium replacement -Will repeat EKG and look for serial changes Sepsis 2/2 possible influenza vs CAP -Hx consistent with influenza -Possible RLL pna -Cefepime, vanc, and tamiflu at this time -Pt has received 2L at this time, will start pressors if need be Grand mal seizure -Aborted with 2mg of lorazepam -No history of seizure disorder in chart review, will confirm with family -Pt has no received any other seizure medications, will load with keppra if seizures return Hypomagnesemia -1.4, replacing per ICU protocol Lactic acidosis -9.5 after Code -pending repeat Hyperbilirubinemia -Chronic but worsening issue -Pending Hida Scan Macrocytic Anemia -Folate and B12 normal in the past -Will monitor Hyperbiliruminemia -Pending HIDA scan -Out pt GI consult JOSE A on CKD stage 2 -Will monitor, likely to dry with heart failure tx Mild coagulopathy -INR 1.4, no signs of bleeding at this time. COPD, no exacerbation -Will monitor HFrEF -EF 15-20% -Will start pt on lasix once stablized Addendum - Attending - Attending Attestation Date/Time: 05/02/19 1107 I personally evaluated the patient and discussed the management with Dr. Bonilla I agree with the History, Examination, Assessment and Plan documented above with any addition or exceptions noted below. 58 yo male well known to [facility] service admitted with suspected sepsis do to influenzae. Patient in dehydrated state was taking 2 loop diuretics furosemide bumex. PMHX non-ischemic cardiomyopathy HRrEF, EF 10-15 % s/p pacemaker/defibrillator recent heart Cath 12/2018 with minimal CAD note 20% lesion first diagonal otherwise no CAD Atrial fibrillation s/p ablation history of CVA while noncompliant on coumadin therapy currently on eliquis CKD 3 HX Polysubstance drug use alcohol cocaine methamphetamines in the past HTN Gout Hx shingles Patient with episode on floor of seizure activity and code blue incident coincided with run of torsades deteriorating into V-fibrillation for which his AICD went off. Patient currently sedated,on mechanical ventilation and 100% paced, empirical broad spectrum antibiotics initiated. The patients BP on low side MAP well above 65 has responded to fluids without need for pressors at this point. Critical care notified and will defer continued ICU management to their expertiseAt some point would recommend Cardiology review his AICD interrogation for any need of adjustment. Respiratory viral panel repeated for further clarification and he remains on tamiflu.
[2019-05-02 06:43] LABS: Lactic Acid 1.7 mmol/L (0.5-2.2)
[2019-05-02 07:39] LABS: Actual Bicarbonate (HCO3a) 27.7 mEq/L (22-28); Base Excess (BEa) 4.6 mEq/L (-2.0 to +3.0); CO2 Tension 36.3 mmHg (35.0-45.0); Calcium, Ionized 1.13 mmol/L (1.12-1.30); Carboxyhemoglobin (COHb) 1.5 gm% (0.0-3.0); Hemoglobin (Hb) 13.7 g/dL (14.0-18.0); O2 Tension (PaO2) 87.4 mmHg (80.0-100.0); Potassium - ABG Lab 3.66 mmol/L (3.70-5.30)
[2019-05-02 07:45] LABS: ALV-art Gradient 116.775 (0-20); Puncture Site RBA
--- NOTE | 2019-05-02 08:10 | CT ---
CT OF THE BRAIN WITHOUT CONTRAST: INDICATION: History of cardiac arrest and seizures. COMPARISON: Prior exam dated 12/28/2018. FINDINGS: There is a stable area of remote infarct involving the right parietal lobe with associated encephalom alacia. The severe chronic small-vessel white matter ischemic change is stable. No midline shift is evident. No acute intracranial hemorrhage or hydrocephalus is present. Mastoid air cells are clear . There is mild mucosal thickening in the ethmoid air cells. The skull is intact. IMPRESSION: 1. No acute intracranial abnormality. 2. Stable remote area of encephalomalacia related to a prior ischemic insult involving the right par ietal lobe. 3. Stable severe chronic small-vessel white matter ischemic change. POS: [facility]
--- NOTE | 2019-05-02 08:13 | CT ---
CT OF THE ABDOMEN AND PELVIS WITHOUT IV CONTRAST: INDICATION: History of seizures and abdominal pain. COMPARISON: Prior CT of the abdomen and pelvis dated 03/23/2019 and a right upper quadrant ultrasound dated 05/01/19. FINDINGS: There are very tiny bilateral pleural effusions. There is bibasilar atelectasis. There is persisten t prominent cardiomegaly. There is stable hepatomegaly. There is stable wall thickening involving the gallbladder as seen on t he comparison ultrasound performed recently. There is scattered mild free fluid in the abdomen. There is a gastric catheter within the stomach. The pancreas, adrenal glands, and spleen appear within normal limits. No hydronephrosis is demonstra monster. There are moderate calcifications involving the abdominopelvic vasculature. The unopacified large and small bowel are unremarkable appearing. There is a Roy catheter within t he decompressed bladder. No definite acute osseous abnormality is demonstrated. IMPRESSION: 1. New bilateral pleural effusions and mild ascites. 2. Gallbladder wall thickening. Component of acalculus cholecystitis is not excluded. HIDA scan is recommended for additional characterization. 3. Gastric catheter and Roy catheter. 4. Other chronic findings as above. POS: [facility]
[2019-05-02] MEDS: Cefepime 1 GM in Sodium Chloride 0.9% 100 ML IVPB SCH ×2 (08:27→21:25)
[2019-05-02] MEDS: Famotidine/PF 20 mg/2ml Vial SLOW IVP SCH (08:28)
--- NOTE | 2019-05-02 08:32 | RAD ---
PORTABLE CHEST: HISTORY: Respiratory distress. COMPARISON: Prior day's study. FINDINGS: Heart size is enlarged. Endotracheal and NG Tubes are in satisfactory position. Defibrillator devic e is present. The lungs are clear of infiltrates. There are no signs of failure. IMPRESSION: Essentially stable exam other than some slight decrease in the pulmonary vascular engorgement as comp ared to the prior study. POS: [facility]
[2019-05-02] MEDS: Oseltamivir 75 MG CAP PO SCH ×2 (08:56→21:26)
[2019-05-02] MEDS ORDERED: Enoxaparin Sodium 40 MG/0.4 ML SYRINGE SC SCH (09:00)
[2019-05-02 09:47] LABS: Amphetamine Not Detected (NotDetected); Barbiturates Screen Not Detected (NotDetected); Benzodiazepine Screen Not Detected (NotDetected); Cocaine Metabolite Screen Not Detected (NotDetected); Medtox Control Line Valid? VALID (VALID); Medtox Reader # READER 4; Methadone Not Detected (NotDetected); Methamphetamine Not Detected (NotDetected); Opiate Screen Detected (NotDetected); Oxycodone Screen Not Detected (NotDetected); Phencyclidine (PCP) Not Detected (NotDetected); THC/Cannabinoid Screen Not Detected (NotDetected); Tricyclic Screen Not Detected (NotDetected)
[2019-05-02] MEDS: Lactated Ringer's 1,000 ML IV SCH ×2 (10:17→19:00)
[2019-05-02] MEDS ORDERED: Potassium Chloride 20 MEQ/100 ML PREMIX BAG IVPB SCH (10:39)
[2019-05-02] MEDS ORDERED: Potassium Chloride 20 MEQ in Premix Bag 1 BAG IVPB SCH ×2 (11:45→21:00)
--- NOTE | 2019-05-02 19:28 | CON ---
DATE OF CONSULTATION: 05/02/2019 REASON FOR CONSULTATION: Cardiac arrest. PRIMARY [employer] PERSON: Dexter Cuevas MD HISTORY OF PRESENT ILLNESS: Mr. Mónica Aldrich is a very pleasant 58-year-old gentleman, who comes to the hospital for fevers. He had abdominal pain as well. He has been diagnosed with possible influenza infection; however, his flu titers have been all inconclusive. He also was found to have elevated levels of total bilirubin and CT of the abdomen showed possible acalculous cholecystitis. Earlier today, he was talking with the physician and the nurse and he suddenly became unresponsive, started having a seizure. This correlated with torsade de pointes on the telemetry monitoring. His pacemaker tried to pace him out of it one time and then successfully got him out of torsades after one single AICD shock. At that time, he was intubated to protect his airway. Currently, he remains intubated and sedated. PAST MEDICAL HISTORY: 1. Nonischemic cardiomyopathy. 2. Presence of an AICD. 3. Systolic dysfunction, EF at 15% to 20%. 4. Chronic atrial fibrillation, on full anticoagulation with Eliquis. 5. Hypertension. 6. Gout. 7. Chronically elevated troponins. 8. Chronic kidney disease stage 3 to 4. 9. Chronic low back pain. 10. GERD. 11. History of substance abuse in the past. PAST SURGICAL HISTORY: 1. AICD placement. 2. Normal heart catheterization very recently. OUTPATIENT MEDICATIONS: 1. Potassium chloride. 2. Bumex. 3. Atorvastatin. 4. Aspirin. 5. Eliquis 5 mg b.i.d. 6. Lasix 40 mg a day. 7. Breo Ellipta. 8. Dexlansoprazole. 9. Cyclobenzaprine. 10. Carvedilol 3.125 b.i.d. 11. Feosol. 12. DuoNeb. 13. . 14. Magnesium 200 mg a day. 15. Losartan 12.5 a day. 16. Ambien. 17. Sucralfate. 18. Probenecid. ALLERGIES: IODINE AND SPIRONOLACTONE. FAMILY HISTORY: Noncontributory for this presentation. SOCIAL HISTORY: Alcohol use. Smokes about 5 to 6 cigarettes a day. No alcohol or tobacco for one month. No drug use, remote in the past. REVIEW OF SYSTEMS: Unobtainable as the patient is sedated and intubated. PHYSICAL EXAMINATION: VITAL SIGNS: Temperature has been 103.2 earlier this morning and is currently still high at 100.7. Pulse 64, respiratory rate 17, saturating 98% on 50% FiO2, blood pressure 92/67. GENERAL: Sedated and intubated. NECK: Supple. LUNGS: Coarse breath sounds. CARDIOVASCULAR: S1 and S2. No S3 or S4. ABDOMEN: Soft. Positive bowel sounds. EXTREMITIES: 1+ edema. SKIN: Warm and dry. LABORATORY WORK: Reviewed. CBC with a white count of 15, hemoglobin 11, hematocrit 35, platelet count of 60. Coags were reviewed. ABG was reviewed. Chemistries were reviewed. BUN is 65, creatinine 2.45. Total bilirubin of 9.5, direct of 6.8. AST mildly elevated at 40, ALT is normal. Alkaline phosphatase was 133. C-reactive protein is extremely high. Sodium was 134, albumin of 3.1. UA; 1+ . Toxicology just positive for opiates. Serology was mostly nonreactive for B and C. Microbiology, PCR is positive for influenza. CT of the brain, abdomen, pelvis all reviewed. ASSESSMENT: 1. Cardiac arrest. 2. Torsade de pointes. 3. Hypomagnesemia. 4. Nonischemic cardiomyopathy with severely reduced EF. 5. Influenza type A infection. 6. Possible acalculous cholecystitis. PLAN: 1. Keep potassium above 4 and replace magnesium aggressively up to about 2.0 or more. 2. Continue supportive care. 3. Tamiflu. 4. Reason for seizure was most likely the ventricular fibrillation arrest and not an actual cerebral issue. 5. The patient is severely ill and would not be unexpected. Thank you for letting us to participate in the care of your patient. We will follow. TIME SPENT: 50 minutes of critical care time. Job ID: [id number]
[2019-05-02] MEDS: Potassium Chloride 20 MEQ in Sodium Chloride 0.9% 250 ML 250 ML IVPB SCH (23:07)
[2019-05-02] MEDS: Vancomycin HCl 1.25 GM in Sodium Chloride 0.9% 250 ML 250 ML IVPB SCH (23:07)
[2019-05-03] MEDS: Propofol 1,000 MG/100 ML VIAL IV PRN ×3 (00:27→16:28)
--- NOTE | 2019-05-03 00:43 | CON ---
DATE OF CONSULTATION: 05/02/2019 SUBJECTIVE: Mr. Aldrich is a 58-year-old male, who had an arrest. He also reportedly had a seizure. It is unclear to me whether Mónica's seizure episode coincided with the rhythm disturbance that was noted on the band attacher. His pacemaker defibrillator apparently tried to pace him out of the rhythm disturbance and then cardioverted him with a single AICD shock. He was apparently intubated after this and is in the Critical Care Unit. I was consulted. PAST MEDICAL HISTORY: Remarkable for; 1. Nonischemic cardiomyopathy, which is severe. 2. History of defibrillator. 3. History of atrial fibrillation. 4. History of hypertension. 5. History of gout. 6. History of chronically elevated troponins. 7. History of false-positive influenza swabs in the past. 8. History of reflux disease. 9. History of substance abuse in the past. MEDICATIONS: Have been reviewed. FAMILY HISTORY: Negative for lung disease in early age. SOCIAL HISTORY: He is not smoking or drinking apparently. REVIEW OF SYSTEMS: Not obtainable. PHYSICAL EXAMINATION: VITAL SIGNS: Temperature up to 103.2 at 2 o'clock this morning, blood pressure is 91/59, heart rate 62, respiratory rates in the teens. HEENT: Pupils are reactive. Sclerae are anicteric. NECK: Supple. LUNGS: Clear anteriorly. HEART: Regular rhythm. S1, S2 are normal. ABDOMEN: Soft and nontender. EXTREMITIES: Without clubbing, cyanosis, or edema. DIAGNOSTIC STUDIES: Chest x-rays are remarkable for subtle increase in interstitial markings. LABORATORY DATA: White count 15.5, hemoglobin 11.5, platelets 60,000. Sodium 134; potassium 3.7; chloride 93; bicarb 25; BUN 65; creatinine 2.49, creatinine was 1.99 on admission. Blood gas shows pH 7.5, CO2 36, PO2 87. IMPRESSION: 1. Status post torsades arrest with defibrillator that fired. 2. Severe nonischemic cardiomyopathy. 3. I would suspect this is secondary to his rhythm disturbance. He has no history of seizure disorder according to the family. 4. Status post intubation around his arrest. We will keep him intubated for now. 5. History of atrial fibrillation, on anticoagulation. 6. Fever, nothing on his chest radiograph. He has flu swab positive, but he has been positive in the past for influenza on swab, but negative with serology. 7. We will follow the other physicians caring for him. CRITICAL CARE TIME: 35 minutes. Job ID: [id number] MTDD
--- NOTE | 2019-05-03 05:54 | PDOC.FM ---
- Subjective Subjective: No acute events overnight. - Objective MAR Reviewed: Yes Vital Signs & Weight: Vital Signs (12 hours) Temp Pulse Resp BP Pulse Ox 05/03/19 04:41 75 97 05/03/19 04:00 99.9 F H 17 05/03/19 02:00 17 05/03/19 01:03 61 82/47 L 05/03/19 00:00 100.3 F H 17 05/02/19 22:00 19 05/02/19 20:00 100.1 F H 19 97 05/02/19 18:55 64 05/02/19 18:00 17 Weight Admit Weight 82.1 kg Weight 82.4 kg Most Recent Monitor Data Heart Rate from ECG 67 NIBP 91/59 NIBP BP-Mean 69 Respiration from ECG 16 SpO2 97 I&O: 05/01/19 05/02/19 05/03/19 06:59 06:59 06:59 Intake Total 1350 2204 Output Total 5 975 Balance 1345 1229 Result Diagrams: 05/03/19 05:34 05/02/19 03:21 Phys Exam - Physical Examination Sedated HEENT: PERRLA dry mm, some bloody discharge from mouth Neck: no JVD Coarse lung sounds Cardiovascular: RRR, no significant murmur Gastrointestinal: soft, positive bowel sounds Pt becomes aggitated with palpation of abdomen, no guarding Musculoskeletal: no edema, pulses present (diminished lower extremity pulses) Skin: cap refill <2 seconds Dx/Plan (1) Sepsis Code(s): A41.9 - SEPSIS, UNSPECIFIED ORGANISM Status: Acute (2) Acute and chronic respiratory failure with hypoxia Code(s): J96.21 - ACUTE AND CHRONIC RESPIRATORY FAILURE WITH HYPOXIA Status: Acute (3) Acute kidney injury superimposed on CKD Code(s): N17.9 - ACUTE KIDNEY FAILURE, UNSPECIFIED; N18.9 - CHRONIC KIDNEY DISEASE, UNSPECIFIED Status: Acute (4) HLD (hyperlipidemia) Code(s): E78.5 - HYPERLIPIDEMIA, UNSPECIFIED Status: Chronic (5) Hypertension Code(s): I10 - ESSENTIAL (PRIMARY) HYPERTENSION Status: Chronic Qualifiers: Hypertension type: essential hypertension Qualified Code(s): I10 - Essential (primary) hypertension (6) Macrocytic anemia Code(s): D53.9 - NUTRITIONAL ANEMIA, UNSPECIFIED Status: Chronic - Plan Plan: This is a 58 yo male with a pmh of COPD, HFrEF, CKD2, HTN Hospital Day 2 Code: Full DVT prophylaxis: SCDs GI prophylaxis: Pepcid Family: Sister at bedside Fluids: LR 50ml/hr Drips: Propofol 30mcg/kg/hr Nutrition: Jevity 1.5 40ml q4 hours Plastic: ET/NG tube, ram, 2 ivs in the left fore arm Vent settings: SIMV 14/minute, TV500, PS 14, Fio2 35, Peep 5 Plan: Work to wean from vent, treat sepsis, work up hyperbilirubinemia Acute hypoxic respiratory failure 2/2 seizure vs. ventricular tachycardia -Pt moved to ICU, intubated and sedated -Respiratory support -Dr. Jacobs, pulmonology consulted Torsades de pointes -Currently paced -S/P magnesium replacement with goals above 2 -Continue potassium replacement with goals above 4 -Will repeat EKG and look for serial changes Sepsis 2/2 possible influenza vs CAP -Hx consistent with influenza -Possible RLL pna -Cefepime, vanc, and tamiflu at this time -Pt has received 2L at this time, will start pressors if need be Grand mal seizure -Aborted with 2mg of lorazepam -No history of seizure disorder in chart review, will confirm with family -Pt has no received any other seizure medications, will load with keppra if seizures return Hypomagnesemia -1.4, replacing per ICU protocol Lactic acidosis, resolved Hyperbilirubinemia -Chronic but worsening issue -Pending Hida Scan Macrocytic Anemia -Folate and B12 normal in the past -Will monitor Hyperbiliruminemia -Pending HIDA scan -Out pt GI consult JOSE A on CKD stage 2 -Will monitor, likely to dry with heart failure tx Mild coagulopathy -INR 1.4, no signs of bleeding at this time. COPD, no exacerbation -Will monitor HFrEF -EF 15-20% -Will start pt on lasix once stablized
[2019-05-03 05:55] LABS: Hemoglobin 11.6 g/dL (14.0-18.0); Mean Corpuscular HGB CONC 32.1 g/dL (32.0-36.0); Mean Corpuscular Hemoglobin 33.8 pg (27.0-31.0); Mean Platelet Volume 11.7 fL (7.4-10.4); Platelet Count 49 thou/uL (130-400); RBC Distribution Width 15.7 % (11.5-14.5); Red Blood Cell (RBC) Count 3.44 mill/uL (4.70-6.10); White Blood Cell (WBC) Count 14.3 thou/uL (4.8-10.8)
[2019-05-03 06:23] LABS: ALT (SGPT) 83 U/L (8-55); AST (SGOT) 256 U/L (5-34); Albumin 2.8 g/dL (3.5-5.0); Alkaline Phosphatase 111 U/L (40-110); Anion Gap 15 mmol/L (10-20); BUN (Urea Nitrogen) 62 mg/dL (8.4-25.7); Bilirubin, Total 9.6 mg/dL (0.2-1.2); Calc. Creatinine Clearance 56 mL/min (70-130); Calcium 9.1 mg/dL (7.8-10.44); Carbon Dioxide 24 mmol/L (22-29); Chloride 99 mmol/L (98-107); Estimated GFR-MDRD 52; Globulin 3.8 g/dL (2.4-3.5); Glucose 97 mg/dL (70-105); Potassium 4.3 mmol/L (3.5-5.1); Protein, Total 6.6 g/dL (6.0-8.3); Sodium 134 mmol/L (136-145)
[2019-05-03 07:04] LABS: Anisocytosis SLIGHT = 6-15 cells (100X) (0-5/hpf); Band 6 % (5-11); Eosinophils 1 % (0-10); Lymphocytes 8 % (21-51); MDiff Complete? YES; Macrocytosis SLIGHT = 6-15 cells (100X) (0-5/hpf); Monocytes 8 % (0-10); Neutrophil 77 % (42-75); Target Cells SLIGHT = 2-5 cells (100X) (0-1/hpf)
[2019-05-03 07:20] LABS: Actual Bicarbonate (HCO3a) 27.2 mEq/L (22-28); Base Excess (BEa) 3.6 mEq/L (-2.0 to +3.0); CO2 Tension 37.6 mmHg (35.0-45.0); Hemoglobin (Hb) 12.3 g/dL (14.0-18.0); O2 Tension (PaO2) 74.9 mmHg (80.0-100.0); Potassium - ABG Lab 3.58 mmol/L (3.70-5.30); pH, Arterial 7.48 (7.35-7.45)
[2019-05-03 07:21] LABS: Puncture Site RRA
[2019-05-03] MEDS: Cefepime 1 GM in Sodium Chloride 0.9% 100 ML IVPB SCH ×2 (08:21→21:47)
[2019-05-03] MEDS: Famotidine/PF 20 mg/2ml Vial SLOW IVP SCH (08:22)
[2019-05-03] MEDS: Oseltamivir 75 MG CAP PO SCH ×2 (08:22→21:59)
[2019-05-03] MEDS ORDERED: Magnesium 2 GM/50 ML 2 GM in Premix Bag 1 BAG IVPB SCH (09:30)
--- NOTE | 2019-05-03 10:19 | RAD ---
PORTABLE SEMIUPRIGHT FRONTAL CHEST RADIOGRAPH: 05/03/2019 HISTORY: Intubated patient. COMPARISON: 05/02/2019 FINDINGS: Endotracheal tube and nasogastric tube in proper position. Multilead right sided AICD noted. Heart an d mediastinal contours are stable. Right lung appears clear. There is nonspecific mild hazy opacity i n the medial left base and left perihilar region, not significantly changed. IMPRESSION: No significant interval change. POS: [facility]
[2019-05-03] MEDS: Potassium Chloride 20 MEQ in Sodium Chloride 0.9% 250 ML 250 ML IVPB SCH ×2 (11:53→23:40)
[2019-05-03] MEDS ORDERED: niCARdipine 25 MG in Sodium Chloride 0.9% 250 ML 240 ML IVPB SCH (13:00)
[2019-05-03] MEDS ORDERED: Norepinephrine 8 MG/250 ML IVPB SCH (13:15)
--- NOTE | 2019-05-03 15:50 | PRG ---
DATE OF SERVICE: 05/03/2019 The patient was seen, evaluated, discussed, and examined with residents in the ICU at bedside. Basically, this gentleman is still comfortable, intubated, sedated right now, actually responded only to the pain as we reduced an umbilical hernia on exam, that seem to cause a little bit of pain, but otherwise he is stable. He has chronic hyperbilirubinemia, not sure exact etiology other than assuming this is all from liver congestion from heart failure, but is currently on vancomycin and cefepime for likely right lower lobe pneumonia on top of influenza and possible sepsis and we are giving him antibiotics and giving him stable IV fluids and ventilatory management right now. No other major changes made to management or medications today. Job ID: [id number]
[2019-05-03] MEDS: Lactated Ringer's 1,000 ML IV SCH (16:28)
[2019-05-03] MEDS: Acetaminophen 325 MG TAB PO PRN (17:28)
--- NOTE | 2019-05-03 17:33 | PRG ---
DATE OF SERVICE: 05/03/2019 OBJECTIVE: VITAL SIGNS: Mr. Aldrich is hemodynamically stable, respiratory rates in the 20s, heart rate in the 60s, blood pressure 95/62. LUNGS: Clear. HEART: Regular rhythm. ABDOMEN: Soft. EXTREMITIES: Without edema. Chest x-ray today is hazy at the left base. IMPRESSION: 1. Status post torsades arrest with firing over his defibrillator. 2. Nonischemic cardiomyopathy. 3. History of atrial fibrillation. 4. Hypertension. 5. Influenza. PLAN: Continue supportive care. May start weaning tomorrow. He appears to be stable and has had no more in the way of rhythm disturbances. Critical care time is 35 minutes. Job ID: [id number] MTDD
--- NOTE | 2019-05-03 18:16 | PDOC.CPN ---
- Subjective Date: 05/03/19 Time: 14:40 Interval history: Remains sedated intubated. Afebril since last night. - Review of Systems ROS unobtainable: due to endotracheal tube - Objective Allergies/Adverse Reactions: Allergies Allergy/AdvReac Type Severity Reaction Status Date / Time iodine Allergy Mild Hives Verified 05/02/19 00:41 spironolactone Allergy Verified 05/02/19 00:41 Visit Medications: Current Medications Acetaminophen (Tylenol) 650 mg AR Q6H PRN PRN Reason: Fever > 101 or Mild Pain Acetaminophen (Tylenol) 650 mg PO Q6H PRN PRN Reason: Headache/Fever or Pain Last Admin: 05/03/19 17:28 Dose: 650 mg Famotidine (Pepcid) 20 mg SLOW IVP DAILY [facility] Last Admin: 05/03/19 08:22 Dose: 20 mg Cefepime HCl 1 gm/ Sodium (Chloride) 100 mls @ 200 mls/hr IVPB Q12HR [facility] Last Admin: 05/03/19 08:21 Dose: 100 mls Lactated Ringer's (Lactated Ringer's) 1,000 mls @ 50 mls/hr IV .Q20H [facility] Last Admin: 05/03/19 16:28 Dose: 1,000 mls Fentanyl Citrate 2,000 mcg/ (Sodium Chloride) 100 mls @ 0 mls/hr IV INF [facility]; Protocol Stop: 05/31/19 22:51 Fentanyl Citrate (Fentanyl Bolus) 250 mls @ 0 mls/hr IVPB PRN PRN PRN Reason: Breakthrough pain/agitation Stop: 05/31/19 22:51 Potassium Chloride 40 meq/ (Sodium Chloride) 270 mls @ 135 mls/hr IVPB ASDIR PRN PRN Reason: FOR SERUM K+ 2.5 - 3.5 Potassium Chloride 40 meq/ (Device) 100 mls @ 50 mls/hr IVPB ASDIR PRN PRN Reason: FOR SERUM K+ 2.5 - 3.5 Magnesium Sulfate 1 gm/ Sodium (Chloride) 102 mls @ 102 mls/hr IV PRN PRN PRN Reason: MAG LEVEL 1.4 - 2.0 Magnesium Sulfate 2 gm/ Device 50 mls @ 50 mls/hr IVPB ASDIR PRN PRN Reason: MAGNESIUM < 1.4 Last Admin: 05/03/19 09:16 Dose: 50 mls Potassium Phosphate 9 mmol/ (Sodium Chloride) 103 mls @ 25.75 mls/hr IVPB ASDIR PRN PRN Reason: Phosphate 1.0-1.8 Potassium Phosphate 12 mmol/ (Sodium Chloride) 254 mls @ 63.5 mls/hr IV ASDIR PRN PRN Reason: Serum phosphate 0.5-0.9 Potassium Phosphate 15 mmol/ (Sodium Chloride) 255 mls @ 63.75 mls/hr IV ASDIR PRN PRN Reason: Serum Phos < 0.5 Vancomycin HCl 1.25 gm/ Sodium (Chloride) 250 mls @ 166.667 mls/hr IVPB [facility] Last Admin: 05/02/19 23:07 Dose: 250 mls Potassium Chloride 20 meq/ (Sodium Chloride) 260 mls @ 130 mls/hr IVPB 1100, 2300 [facility] Stop: 05/04/19 00:59 Last Admin: 05/03/19 11:53 Dose: 260 mls Norepinephrine Bitartrate (Levophed) 250 mls @ 0 mls/hr IVPB INF [facility]; Protocol Lorazepam (Ativan) 2 mg SLOW IVP Q1H PRN PRN Reason: Breakthrough agitation Stop: 05/31/19 22:51 Last Admin: 05/02/19 06:34 Dose: 2 mg Magnesium Oxide (Magnesium Oxide) 400 mg PO BIDPRN PRN PRN Reason: FOR SERUM MAG 1.4 - 2.0 Magnesium Oxide (Magnesium Oxide) 800 mg PO PRN PRN PRN Reason: FOR SERUM MAG < 1.4 Mineral Oil/White Petrolatum (Systane Nighttime Eye Ointment) 0 gm EA EYE PRN PRN PRN Reason: Dry Eyes Miscellaneous Medication (Phos-Nak) 1 pkt PO TIDPRN PRN PRN Reason: FOR PHOS LEVEL 1.0 - 1.8 Miscellaneous Medication (Phos-Nak) 2 pkt PO TIDPRN PRN PRN Reason: FOR PHOS LEVEL 0.5 - 1.0 Miscellaneous Medication (Pharmacy To Dose) 1 each IVPB PRN PRN PRN Reason: Pharmacy to dose Morphine Sulfate (Morphine) 2 mg SLOW IVP Q1H PRN PRN Reason: BREAKTHROUGH PAIN/Agitation Stop: 05/31/19 22:51 Discontinue Previous Narcotic Pain Medications And Benzodiazepines 1 each FS .ONE [facility] Stop: 05/31/19 22:51 Ccu Electrolyte (Replacement Protocol) 0 each FS PRN PRN PRN Reason: FOR ELECTROLYTE REPLACEMENT Ondansetron HCl (Zofran) 4 mg IVP Q6H PRN PRN Reason: Nausea/Vomiting Oseltamivir Phosphate (Tamiflu) 75 mg PO BID [facility] Stop: 05/06/19 09:01 Last Admin: 05/03/19 08:22 Dose: 75 mg Potassium Chloride (K-Dur) 40 meq PO ASDIR PRN PRN Reason: FOR SERUM K+ 2.5 - 3.5 Potassium Chloride (Klor-Con) 40 meq PER TUBE ASDIR PRN PRN Reason: FOR SERUM K+ 2.5-3.5 Propofol (Diprivan) 1,000 mg IV INF PRN; Protocol PRN Reason: TO ACHIEVE GOAL RASS Stop: 05/31/19 22:51 Last Admin: 05/03/19 16:28 Dose: 1,000 mg Propofol (Diprivan Bolus) 20 mg IV Q5MIN PRN PRN Reason: BREAKTHROUGH AGITATION Stop: 05/31/19 22:51 Sodium Chloride (Flush - Normal Saline) 10 ml IVF PRN PRN PRN Reason: Saline Flush Vital Signs & Weight: Vital Signs Temp Pulse Resp BP Pulse Ox 05/03/19 17:00 99.9 F H 05/03/19 16:00 26 H 05/03/19 14:43 63 93/63 05/03/19 14:00 27 H 05/03/19 12:57 67 86/64 L 05/03/19 12:00 99.9 F H 30 H 05/03/19 10:30 64 05/03/19 10:00 21 H 05/03/19 08:00 99.4 F 21 H 96 05/03/19 07:50 76 91/64 Admit Weight 181 lb Weight 182 lb 5.156 oz - Physical Exam General: other (S/I) HEENT: mucus membranes moist Neck: supple neck Cardiac: regular rate and rhythm, systolic murmur Lungs: scattered rhonchi Neuro: no lateralizing findings Abdomen: active bowel sounds Extremities: 1+ LE edema Skin: clear Musculoskeletal: normal range of motion - Labs Result Diagrams: 05/03/19 05:34 02/15/20 05:34 - Telemetry Sinus rhythms and dysrhythmias: other (V paced) Supraventricular conduction: atrial fibrillation - Assessment/Plan Assessment/Plan: 1. Influenza A 2. Pneumonia 3. Polymorphic VT arrest s/p ICD discharge 4. Severe non ischemic CM Ef at 15-20% 5. Chronic afib 6. Chronically elevated troponins 7. Mild CAD on recent C. BARRY: - Continue supportive care. - Mg and K check daily and replace as needed - Keep Mg above 2.0 - No fevers since midnight but low grade temp now. - Seizure episode likely result of cerebral hypoperfusion from polymorphic VT - Critical Care Time Critical care time (mins): 30
[2019-05-03 21:33] LABS: Vancomycin, Trough 15.5 ug/mL
[2019-05-03] MEDS: Vancomycin HCl 1.25 GM in Sodium Chloride 0.9% 250 ML 250 ML IVPB SCH (23:40)
[2019-05-04] MEDS: Propofol 1,000 MG/100 ML VIAL IV PRN ×4 (00:14→17:07)
[2019-05-04 04:07] LABS: #Eosinphils 0.2 thou/uL (0.0-0.7); #Lymphocytes 1.4 thou/uL (1.20-3.40); #Monocytes 1.6 thou/uL (0.11-0.59); #Neutrophils 7.4 thou/uL (1.40-6.50); %Basophils 0.4 % (0.0-1.0); %Eosinophils 2.3 % (0.0-10.0); %Lymphocytes 13.3 % (21.0-51.0); %Monocytes 14.7 % (0.0-10.0); %Neutrophils 69.3 % (42.0-75.0); ALT (SGPT) 143 U/L (8-55); AST (SGOT) 380 U/L (5-34); Albumin 2.8 g/dL (3.5-5.0); Alkaline Phosphatase 128 U/L (40-110); Anion Gap 14 mmol/L (10-20); BUN (Urea Nitrogen) 62 mg/dL (8.4-25.7); Bilirubin, Total 7.7 mg/dL (0.2-1.2); Calc. Creatinine Clearance 55 mL/min (70-130); Calcium 9.3 mg/dL (7.8-10.44); Carbon Dioxide 24 mmol/L (22-29); Chloride 100 mmol/L (98-107); Estimated GFR-MDRD 51; Glucose 125 mg/dL (70-105); Hemoglobin 11.2 g/dL (14.0-18.0); Magnesium 2.4 mg/dL (1.6-2.6); Mean Corpuscular HGB CONC 32.8 g/dL (32.0-36.0); Mean Corpuscular Hemoglobin 34.3 pg (27.0-31.0); Mean Platelet Volume 10.4 fL (7.4-10.4); Platelet Count 55 thou/uL (130-400); Protein, Total 6.8 g/dL (6.0-8.3); RBC Distribution Width 15.6 % (11.5-14.5); Red Blood Cell (RBC) Count 3.27 mill/uL (4.70-6.10); Sodium 134 mmol/L (136-145); White Blood Cell (WBC) Count 10.7 thou/uL (4.8-10.8)
--- NOTE | 2019-05-04 05:48 | PDOC.FM ---
- Subjective Subjective: No acute events overnight. Pt still remains fairly agitated when off sedation per nursing. - Objective MAR Reviewed: Yes Vital Signs & Weight: Vital Signs (12 hours) Temp Pulse Resp BP Pulse Ox 05/04/19 04:15 65 05/04/19 04:00 98.5 F 20 05/04/19 02:00 19 05/04/19 00:20 73 110/78 05/04/19 00:00 17 05/03/19 23:00 98.7 F 05/03/19 22:00 20 05/03/19 20:00 99.3 F 22 H 98 05/03/19 18:37 64 05/03/19 18:00 18 Weight Admit Weight 82.1 kg Weight 82.7 kg Most Recent Monitor Data Heart Rate from ECG 75 NIBP 92/75 NIBP BP-Mean 80 Respiration from ECG 21 SpO2 94 I&O: 05/02/19 05/03/19 05/04/19 06:59 06:59 06:59 Intake Total 1350 3234 2335 Output Total 5 1200 1018 Balance 1345 2034 1317 Result Diagrams: 05/04/19 03:22 05/04/19 03:22 Phys Exam - Physical Examination Constitutional: NAD Sedated HEENT: PERRLA, moist MMs Neck: no JVD Coarse lung sounds Cardiovascular: RRR 2/6 systolic murmur Gastrointestinal: soft, no distention, positive bowel sounds Musculoskeletal: no edema, pulses present (diminished) Skin: cap refill <2 seconds Dx/Plan (1) Sepsis Code(s): A41.9 - SEPSIS, UNSPECIFIED ORGANISM Status: Acute (2) Acute and chronic respiratory failure with hypoxia Code(s): J96.21 - ACUTE AND CHRONIC RESPIRATORY FAILURE WITH HYPOXIA Status: Acute (3) Acute kidney injury superimposed on CKD Code(s): N17.9 - ACUTE KIDNEY FAILURE, UNSPECIFIED; N18.9 - CHRONIC KIDNEY DISEASE, UNSPECIFIED Status: Acute (4) HLD (hyperlipidemia) Code(s): E78.5 - HYPERLIPIDEMIA, UNSPECIFIED Status: Chronic (5) Hypertension Code(s): I10 - ESSENTIAL (PRIMARY) HYPERTENSION Status: Chronic Qualifiers: Hypertension type: essential hypertension Qualified Code(s): I10 - Essential (primary) hypertension (6) Macrocytic anemia Code(s): D53.9 - NUTRITIONAL ANEMIA, UNSPECIFIED Status: Chronic - Plan Plan: This is a 58 yo male with a pmh of COPD, HFrEF, CKD2, HTN Hospital Day 3 Code: Full DVT prophylaxis: SCDs GI prophylaxis: Pepcid Family: Sister at bedside Fluids: LR 50ml/hr Drips: Propofol 30mcg/kg/hr Nutrition: Jevity 1.5 40ml q4 hours Plastic: ET/NG tube, ram, 2 ivs in the left fore arm Vent settings: SIMV 14/minute, TV500, PS 14, Fio2 35, Peep 5 Plan: Work to wean from vent, treat sepsis Acute hypoxic respiratory failure 2/2 seizure vs. ventricular tachycardia -Pt moved to ICU, intubated and sedated -Respiratory support -Dr. Jacobs, pulmonology consulted Torsades de pointes -Currently paced -S/P magnesium replacement with goals above 2 -Continue potassium replacement with goals above 4 Sepsis 2/2 possible influenza vs CAP -Hx consistent with influenza -Possible RLL pna -Cefepime, vanc, and tamiflu at this time -Pt has received 2L at this time, will start pressors if need be Grand mal seizure -Aborted with 2mg of lorazepam -No history of seizure disorder in chart review, will confirm with family -Pt has no received any other seizure medications, will load with keppra if seizures return Hypomagnesemia, resolved Lactic acidosis, resolved Macrocytic Anemia -Folate and B12 normal in the past -Will monitor Hyperbiliruminemia likely 2/2 hepatic congestion from HFrEF -Pending HIDA scan -Out pt GI consult Rising transaminase -Secondary to hepatic congestion JOSE A on CKD stage 2 -Will monitor, likely to dry with heart failure tx Mild coagulopathy -INR 1.4, no signs of bleeding at this time. COPD, no exacerbation -Will monitor HFrEF -EF 15-20% -Will start pt on lasix once stablized
[2019-05-04 06:41] LABS: Actual Bicarbonate (HCO3a) 26.9 mEq/L (22-28); CO2 Tension 38.4 mmHg (35.0-45.0); Calcium, Ionized 1.23 mmol/L (1.12-1.30); Carboxyhemoglobin (COHb) 1.4 gm% (0.0-3.0); Hemoglobin (Hb) 11.8 g/dL (14.0-18.0); O2 Tension (PaO2) 77.3 mmHg (80.0-100.0); Potassium - ABG Lab 3.85 mmol/L (3.70-5.30); pH, Arterial 7.46 (7.35-7.45)
[2019-05-04 06:42] LABS: Puncture Site RRA
[2019-05-04] MEDS ORDERED: Cyclobenzaprine 10 MG TAB PO PRN (07:06)
[2019-05-04] MEDS: Magnesium Oxide 400 MG TAB PO SCH (07:52)
[2019-05-04] MEDS: Furosemide 40 MG TAB PO SCH (07:53)
[2019-05-04] MEDS: Cefepime 1 GM in Sodium Chloride 0.9% 100 ML IVPB SCH ×2 (08:01→21:15)
[2019-05-04] MEDS: Ferrous Sulfate 325 MG TAB PO SCH (08:02)
[2019-05-04] MEDS: Aspirin 81 mg Enteric Coated Tablet PO SCH (08:03)
[2019-05-04] MEDS: Potassium Chloride 10 MEQ TAB PO SCH (08:03)
[2019-05-04] MEDS: Famotidine/PF 20 mg/2ml Vial SLOW IVP SCH (08:03)
--- NOTE | 2019-05-04 08:03 | RAD ---
SEMIUPRIGHT PORTABLE FRONTAL CHEST RADIOGRAPH: 05/04/2019 HISTORY: Intubated patient. COMPARISON: 05/03/2019 FINDINGS: Endotracheal tube, nasogastric tube and right transvenous AICD in stable position. Mild pulmonary vas cular prominence. Hazy nonspecific left basilar air space disease, slightly worsened. IMPRESSION: 1. Lines and tubes as above. 2. Mild interval worsening of left basilar aeration. POS: [facility]
[2019-05-04] MEDS ORDERED: IRON CARBONYL PO SCH (09:00)
[2019-05-04] MEDS ORDERED: COLCHICINE PO SCH (09:00)
[2019-05-04] MEDS ORDERED: PROBENECID PO SCH (09:00)
[2019-05-04] MEDS ORDERED: MAGNESIUM 200 MG PO SCH (09:00)
[2019-05-04] MEDS: Oseltamivir 75 MG CAP PO SCH ×2 (09:56→21:16)
--- NOTE | 2019-05-04 12:20 | PRG ---
DATE OF SERVICE: 05/04/2019 Please see the note from Dr. Bandar Bonilla, for which I agree. The patient was seen, evaluated, discussed and examined with the residents by bedside. This gentleman is still intubated, but we were trying to wean him off sedation to see if hopefully we can wean him off the ventilator. Chest x-ray this morning showed cardiomegaly, still a little bit of a left lower lobe infiltrate likely. Hard to really tell his mental status at this point in time. I am just trying to see how he responds to less sedation, but otherwise supportive care of the ventilator, tube feeds, and still on the same antibiotics. Appreciate Cardiology and Pulmonary's input. Job ID: [id number]
[2019-05-04] MEDS: Hydrocodone-Acetamin 15 ML UDCUP PO SCH ×2 (15:01→21:16)
--- NOTE | 2019-05-04 16:50 | PDOC.CPN ---
- Subjective Date: 05/04/19 Time: 16:48 Interval history: Remains sedated and intubated. - Review of Systems ROS unobtainable: due to endotracheal tube - Objective Allergies/Adverse Reactions: Allergies Allergy/AdvReac Type Severity Reaction Status Date / Time iodine Allergy Mild Hives Verified 05/02/19 00:41 spironolactone Allergy Verified 05/02/19 00:41 Visit Medications: Current Medications Acetaminophen (Tylenol) 650 mg DC Q6H PRN PRN Reason: Fever > 101 or Mild Pain Acetaminophen (Tylenol) 650 mg PO Q6H PRN PRN Reason: Headache/Fever or Pain Last Admin: 05/03/19 17:28 Dose: 650 mg Hydrocodone Bitart/Acetaminophen ([place] 10/325) 1 tab PO Q4H PRN PRN Reason: Pain Hydrocodone Bitart/Acetaminophen (Hydrocodone-Apap 7.5-325/15) 15 ml PO Q8HR [facility] Last Admin: 05/04/19 15:01 Dose: 15 ml Albuterol/Ipratropium (Duoneb) 3 ml NEB QIDPRN PRN PRN Reason: Wheezing Aspirin (Ecotrin) 81 mg PO DAILY [facility] Last Admin: 05/04/19 08:03 Dose: 81 mg Atorvastatin Calcium (Lipitor) 40 mg PO [facility] Cyclobenzaprine HCl (Flexeril) 10 mg PO DAILY PRN PRN Reason: Muscle Pain Famotidine (Pepcid) 20 mg SLOW IVP DAILY [facility] Last Admin: 05/04/19 08:03 Dose: 20 mg Ferrous Sulfate (Feosol) 325 mg PO DAILY [facility] Last Admin: 05/04/19 08:02 Dose: 325 mg Furosemide (Lasix) 40 mg PO DAILY-AC [facility] Last Admin: 05/04/19 07:53 Dose: 40 mg Cefepime HCl 1 gm/ Sodium (Chloride) 100 mls @ 200 mls/hr IVPB Q12HR [facility] Last Admin: 05/04/19 08:01 Dose: 100 mls Fentanyl Citrate 2,000 mcg/ (Sodium Chloride) 100 mls @ 0 mls/hr IV INF [facility]; Protocol Stop: 05/31/19 22:51 Fentanyl Citrate (Fentanyl Bolus) 250 mls @ 0 mls/hr IVPB PRN PRN PRN Reason: Breakthrough pain/agitation Stop: 05/31/19 22:51 Potassium Chloride 40 meq/ (Sodium Chloride) 270 mls @ 135 mls/hr IVPB ASDIR PRN PRN Reason: FOR SERUM K+ 2.5 - 3.5 Potassium Chloride 40 meq/ (Device) 100 mls @ 50 mls/hr IVPB ASDIR PRN PRN Reason: FOR SERUM K+ 2.5 - 3.5 Magnesium Sulfate 1 gm/ Sodium (Chloride) 102 mls @ 102 mls/hr IV PRN PRN PRN Reason: MAG LEVEL 1.4 - 2.0 Magnesium Sulfate 2 gm/ Device 50 mls @ 50 mls/hr IVPB ASDIR PRN PRN Reason: MAGNESIUM < 1.4 Last Admin: 05/03/19 09:16 Dose: 50 mls Potassium Phosphate 9 mmol/ (Sodium Chloride) 103 mls @ 25.75 mls/hr IVPB ASDIR PRN PRN Reason: Phosphate 1.0-1.8 Potassium Phosphate 12 mmol/ (Sodium Chloride) 254 mls @ 63.5 mls/hr IV ASDIR PRN PRN Reason: Serum phosphate 0.5-0.9 Potassium Phosphate 15 mmol/ (Sodium Chloride) 255 mls @ 63.75 mls/hr IV ASDIR PRN PRN Reason: Serum Phos < 0.5 Vancomycin HCl 1.25 gm/ Sodium (Chloride) 250 mls @ 166.667 mls/hr IVPB 2200 [facility] Last Admin: 05/03/19 23:40 Dose: 250 mls Norepinephrine Bitartrate (Levophed) 250 mls @ 0 mls/hr IVPB INF [facility]; Protocol Lorazepam (Ativan) 2 mg SLOW IVP Q1H PRN PRN Reason: Breakthrough agitation Stop: 05/31/19 22:51 Last Admin: 05/02/19 06:34 Dose: 2 mg Magnesium Oxide (Magnesium Oxide) 400 mg PO BIDPRN PRN PRN Reason: FOR SERUM MAG 1.4 - 2.0 Magnesium Oxide (Magnesium Oxide) 800 mg PO PRN PRN PRN Reason: FOR SERUM MAG < 1.4 Magnesium Oxide (Magnesium Oxide) 200 mg PO DAILY [facility] Last Admin: 05/04/19 07:52 Dose: 200 mg Mineral Oil/White Petrolatum (Systane Nighttime Eye Ointment) 0 gm EA EYE PRN PRN PRN Reason: Dry Eyes Miscellaneous Medication (Phos-Nak) 1 pkt PO TIDPRN PRN PRN Reason: FOR PHOS LEVEL 1.0 - 1.8 Miscellaneous Medication (Phos-Nak) 2 pkt PO TIDPRN PRN PRN Reason: FOR PHOS LEVEL 0.5 - 1.0 Miscellaneous Medication (Pharmacy To Dose) 1 each IVPB PRN PRN PRN Reason: Pharmacy to dose Morphine Sulfate (Morphine) 2 mg SLOW IVP Q1H PRN PRN Reason: BREAKTHROUGH PAIN/Agitation Stop: 05/31/19 22:51 Discontinue Previous Narcotic Pain Medications And Benzodiazepines 1 each FS .ONE [facility] Stop: 05/31/19 22:51 Ccu Electrolyte (Replacement Protocol) 0 each FS PRN PRN PRN Reason: FOR ELECTROLYTE REPLACEMENT Ondansetron HCl (Zofran) 4 mg IVP Q6H PRN PRN Reason: Nausea/Vomiting Oseltamivir Phosphate (Tamiflu) 75 mg PO BID [facility] Stop: 05/06/19 09:01 Last Admin: 05/04/19 09:56 Dose: 75 mg Probenecid- (Colchicine Tablet) 0 each PO BID [facility] Potassium Chloride (K-Dur) 40 meq PO ASDIR PRN PRN Reason: FOR SERUM K+ 2.5 - 3.5 Potassium Chloride (Klor-Con) 40 meq PER TUBE ASDIR PRN PRN Reason: FOR SERUM K+ 2.5-3.5 Potassium Chloride (Klor-Con 10) 10 meq PO DAILY [facility] Last Admin: 05/04/19 08:03 Dose: 10 meq Propofol (Diprivan) 1,000 mg IV INF PRN; Protocol PRN Reason: TO ACHIEVE GOAL RASS Stop: 05/31/19 22:51 Last Admin: 05/04/19 12:04 Dose: 1,000 mg Propofol (Diprivan Bolus) 20 mg IV Q5MIN PRN PRN Reason: BREAKTHROUGH AGITATION Stop: 05/31/19 22:51 Sodium Chloride (Flush - Normal Saline) 10 ml IVF PRN PRN PRN Reason: Saline Flush Vital Signs & Weight: Vital Signs Temp Pulse Resp BP Pulse Ox 05/04/19 16:00 98.9 F 19 05/04/19 14:59 70 05/04/19 14:00 16 05/04/19 12:00 100.0 F H 25 H 05/04/19 11:00 63 103/69 05/04/19 10:00 22 H 05/04/19 09:40 62 102/73 05/04/19 08:00 99.8 F H 22 H 94 L 05/04/19 06:00 20 Admit Weight 181 lb Weight 185 lb 13.595 oz - Physical Exam General: other (S/I) HEENT: normocephaly Neck: supple neck Cardiac: irregularly regular Lungs: scattered rhonchi Neuro: no lateralizing findings Abdomen: active bowel sounds Extremities: 1+ LE edema Skin: clear Musculoskeletal: no pain - Labs Result Diagrams: 05/04/19 03:22 05/04/19 03:22 - Telemetry Supraventricular conduction: atrial fibrillation - Assessment/Plan Assessment/Plan: 1. Influenza A 2. Pneumonia 3. Polymorphic VT arrest s/p ICD discharge 4. Severe non ischemic CM Ef at 15-20% 5. Chronic afib 6. Chronically elevated troponins 7. Mild CAD on recent [facility]. BARRY: - Continue supportive care. - Mg and K check daily and replace as needed - Keep Mg above 2.0 - No fevers since yesterday. - Seizure episode likely result of cerebral hypoperfusion from polymorphic VT.
--- NOTE | 2019-05-04 16:51 | PRG ---
DATE OF SERVICE: 05/04/2019 SUBJECTIVE: Mónica Aldrich remains clinically unchanged. OBJECTIVE: VITAL SIGNS: He is mechanically ventilated. Heart rate 70, respiratory rate 20s, blood pressure is 91/69. LUNGS: Clear. HEART: Regular rhythm. ABDOMEN: Soft. EXTREMITIES: Without edema. LABORATORY DATA: White count 10.7, hemoglobin 11.2, platelets 55,000, sodium 134, potassium 4, chloride 100, bicarb 24, BUN 62, creatinine 1.68. Liver enzymes are elevated. Chest radiograph shows some atelectasis in the left base. IMPRESSION: 1. Status post cardiac arrest with torsades, shocked back into rhythm by his defibrillator. 2. Underlying cardiomyopathy. 3. Encephalopathy after his arrest, mental status is waxing and waning. 4. ? pneumonia. 5. Influenza. 6. Atrial fibrillation. 7. Elevated liver enzymes, most likely related to his arrest. PLAN: Continue supportive care, slow weaning from mechanical ventilation. Job ID: [id number]
[2019-05-04] MEDS ORDERED: Non-Formulary Item 1 EACH (Atorvastatin Calcium [Atorvastatin Calcium] 40 MG) PO SCH (21:00)
[2019-05-04] MEDS: Atorvastatin Calcium 40 MG TAB PO SCH (21:15)
[2019-05-04] MEDS: Vancomycin HCl 1.25 GM in Sodium Chloride 0.9% 250 ML 250 ML IVPB SCH (21:16)
[2019-05-05 04:42] LABS: ALT (SGPT) 125 U/L (8-55); AST (SGOT) 268 U/L (5-34); Albumin 2.7 g/dL (3.5-5.0); Alkaline Phosphatase 146 U/L (40-110); Anion Gap 14 mmol/L (10-20); BUN (Urea Nitrogen) 63 mg/dL (8.4-25.7); Bilirubin, Total 6.9 mg/dL (0.2-1.2); Calc. Creatinine Clearance 55 mL/min (70-130); Calcium 9.4 mg/dL (7.8-10.44); Carbon Dioxide 25 mmol/L (22-29); Chloride 101 mmol/L (98-107); Estimated GFR-MDRD 50; Glucose 112 mg/dL (70-105); Magnesium 2.3 mg/dL (1.6-2.6); Potassium 3.8 mmol/L (3.5-5.1); Protein, Total 6.7 g/dL (6.0-8.3); Sodium 136 mmol/L (136-145)
[2019-05-05 04:57] LABS: #Basophils 0.1 thou/uL (0.0-0.2); #Eosinphils 0.7 thou/uL (0.0-0.7); #Lymphocytes 1.3 thou/uL (1.20-3.40); #Monocytes 1.3 thou/uL (0.11-0.59); #Neutrophils 6.6 thou/uL (1.40-6.50); %Basophils 0.5 % (0.0-1.0); %Eosinophils 6.8 % (0.0-10.0); %Lymphocytes 12.9 % (21.0-51.0); %Monocytes 13.3 % (0.0-10.0); %Neutrophils 66.4 % (42.0-75.0); Hemoglobin 11.1 g/dL (14.0-18.0); Mean Corpuscular HGB CONC 32.6 g/dL (32.0-36.0); Mean Corpuscular Hemoglobin 34.5 pg (27.0-31.0); Mean Platelet Volume 11.6 fL (7.4-10.4); Platelet Count 55 thou/uL (130-400); RBC Distribution Width 15.5 % (11.5-14.5); Red Blood Cell (RBC) Count 3.21 mill/uL (4.70-6.10); White Blood Cell (WBC) Count 9.9 thou/uL (4.8-10.8)
[2019-05-05] MEDS: Hydrocodone-Acetamin 15 ML UDCUP PO SCH ×3 (05:40→22:08)
--- NOTE | 2019-05-05 05:51 | PDOC.FM ---
- Subjective Subjective: Nursing states he is less responsive. He will open his eyes but will not follow commands - Objective MAR Reviewed: Yes Vital Signs & Weight: Vital Signs (12 hours) Temp Pulse Resp BP Pulse Ox 05/05/19 04:00 99.0 F 18 05/05/19 02:00 17 05/05/19 00:00 18 05/04/19 23:07 74 05/04/19 23:00 98.8 F 05/04/19 22:00 22 H 05/04/19 20:00 18 97 05/04/19 19:01 69 71/54 L 05/04/19 19:00 97.9 F 05/04/19 18:00 22 H Weight Admit Weight 82.1 kg Weight 84.2 kg Most Recent Monitor Data Heart Rate from ECG 75 NIBP 90/66 NIBP BP-Mean 74 Respiration from ECG 17 SpO2 94 I&O: 05/03/19 05/04/19 05/05/19 06:59 06:59 06:59 Intake Total 3234 3676 2637 Output Total 1200 1113 1015 Balance 2034 2563 1622 Result Diagrams: 05/05/19 03:18 05/05/19 03:18 Phys Exam - Physical Examination Constitutional: NAD HEENT: PERRLA, moist MMs Neck: no JVD Respiratory: no wheezing, clear to auscultation bilateral Cardiovascular: RRR, no significant murmur Feels more distended than before. BS + Musculoskeletal: no edema, pulses present (diminished) Skin: cap refill <2 seconds Dx/Plan (1) Sepsis Code(s): A41.9 - SEPSIS, UNSPECIFIED ORGANISM Status: Acute (2) Acute and chronic respiratory failure with hypoxia Code(s): J96.21 - ACUTE AND CHRONIC RESPIRATORY FAILURE WITH HYPOXIA Status: Acute (3) Acute kidney injury superimposed on CKD Code(s): N17.9 - ACUTE KIDNEY FAILURE, UNSPECIFIED; N18.9 - CHRONIC KIDNEY DISEASE, UNSPECIFIED Status: Acute (4) HLD (hyperlipidemia) Code(s): E78.5 - HYPERLIPIDEMIA, UNSPECIFIED Status: Chronic (5) Hypertension Code(s): I10 - ESSENTIAL (PRIMARY) HYPERTENSION Status: Chronic Qualifiers: Hypertension type: essential hypertension Qualified Code(s): I10 - Essential (primary) hypertension (6) Macrocytic anemia Code(s): D53.9 - NUTRITIONAL ANEMIA, UNSPECIFIED Status: Chronic - Plan Plan: This is a 58 yo male with a pmh of COPD, HFrEF, CKD2, HTN Hospital Day 4 Code: Full DVT prophylaxis: SCDs GI prophylaxis: Pepcid Family: none at bedside Fluids: SL Drips: Propofol 30mcg/kg/hr Nutrition: Jevity 1.5 40ml q4 hours Plastic: ET/NG tube, ram, 2 ivs in the left fore arm Vent settings: SIMV 14/minute, TV500, PS 14, Fio2 35, Peep 5 Plan: Work to wean from vent, treat sepsis Acute hypoxic respiratory failure 2/2 seizure vs. ventricular tachycardia -Pt moved to ICU, intubated and sedated -Respiratory support -Dr. Jacobs, pulmonology consulted Torsades de pointes, has not reoccurred -Currently paced -S/P magnesium replacement with goals above 2 -Continue potassium replacement with goals above 4 Sepsis 2/2 possible influenza vs CAP, improved -Hx consistent with influenza -Possible RLL pna -Cefepime, vanc, and tamiflu at this time -Pt has received 2L at this time, will start pressors if need be Grand mal seizure -Aborted with 2mg of lorazepam -No history of seizure disorder in chart review, will confirm with family -Pt has no received any other seizure medications, will load with keppra if seizures return Hypomagnesemia, resolved Lactic acidosis, resolved Macrocytic Anemia -Folate and B12 normal in the past -Will monitor Hyperbiliruminemia likely 2/2 hepatic congestion from HFrEF -Pending HIDA scan -Out pt GI consult Rising transaminase -Secondary to hepatic congestion JOSE A on CKD stage 2, improved -Will monitor, likely to dry with heart failure tx Mild coagulopathy -INR 1.4, no signs of bleeding at this time. COPD, no exacerbation -Will monitor HFrEF -EF 15-20% -Will start pt on lasix once stablized Addendum - Attending - Attending Attestation Date/Time: 05/05/19 2314 I personally evaluated the patient and discussed the management with Dr. Bonilla I agree with the History, Examination, Assessment and Plan documented above with any addition or exceptions noted below. Patient remains on broad spectrum ABX pseudomonas and MRSA coverage and tamiflu for positive flu A He remains 100% paced. I see no reported ectopy or further seizure activity. Keeping his magnesium keep above 2. Patient sedated lightly on propofol and currently undergoing weaning trial for extubation. History of elevated bilirubin LFT felt congestive in nature. Continue treatment sepsis with PNA. BP running lowside but has not required pressor specifically levophed as of yet. Appreciate recommendations of Critical Care and Cardiology patient remains with guarded fdc prognosis given severity of his conditions repeated hospitalizations and deconditioned overall status.
[2019-05-05 07:09] LABS: Actual Bicarbonate (HCO3a) 28.3 mEq/L (22-28); Base Excess (BEa) 4.6 mEq/L (-2.0 to +3.0); CO2 Tension 38.9 mmHg (35.0-45.0); Calcium, Ionized 1.21 mmol/L (1.12-1.30); Carboxyhemoglobin (COHb) 1.8 gm% (0.0-3.0); Hemoglobin (Hb) 11.3 g/dL (14.0-18.0); Potassium - ABG Lab 4.48 mmol/L (3.70-5.30); pH, Arterial 7.48 (7.35-7.45)
[2019-05-05 07:10] LABS: ALV-art Gradient 144.225 (0-20); O2 Tension (PaO2) 56.7 mmHg (80.0-100.0); Puncture Site RRA
--- NOTE | 2019-05-05 08:20 | RAD ---
EXAM: CHEST ONE VIEW HISTORY: Intubated COMPARISON: 05/04/2019 FINDINGS: Endotracheal tube and nasogastric tube remain in place and unchanged in position. Dual lead right sub clavian AICD device is again noted. The heart remains enlarged. Pulmonary vasculature also remains mildly increased. There is suggestion of increased density in the left midlung zone which could be re lated to pneumonia or aspiration pneumonitis. No other interval change. IMPRESSION: 1. Lines and tubes remain in place as above. 2. Increased density left midlung zone which could be related to atelectasis, pneumonia or possibly a spiration pneumonitis. Follow-up to resolution is recommended. 3. Cardiomegaly with mild pulmonary vascular congestion.
[2019-05-05] MEDS: Famotidine/PF 20 mg/2ml Vial SLOW IVP SCH (09:38)
[2019-05-05] MEDS: Cefepime 1 GM in Sodium Chloride 0.9% 100 ML IVPB SCH ×2 (09:38→21:00)
[2019-05-05] MEDS: Aspirin 81 mg Enteric Coated Tablet PO SCH (09:39)
[2019-05-05] MEDS: Ferrous Sulfate 325 MG TAB PO SCH (09:39)
[2019-05-05] MEDS: Magnesium Oxide 400 MG TAB PO SCH (09:39)
[2019-05-05] MEDS: Potassium Chloride 10 MEQ TAB PO SCH (09:39)
[2019-05-05] MEDS: Furosemide 40 MG TAB PO SCH (09:39)
[2019-05-05] MEDS: Oseltamivir 75 MG CAP PO SCH ×2 (09:48→21:01)
--- NOTE | 2019-05-05 09:56 | PRG ---
DATE OF SERVICE: 05/05/2019 35 minutes critical time. SUBJECTIVE: The patient remains intubated on mechanical ventilation. I found him very dyssynchronous on mechanical ventilation this morning. OBJECTIVE: VITAL SIGNS: His heart rate 64, blood pressure 94/69, O2 saturation 95%, respiratory rate 20. His last measured temperature was 99.0. Intake for 24 hours 2697, output 1035. HEENT: Unremarkable. NECK: No adenopathy or JVD. LUNGS: Coarse breath sounds. CARDIAC: S1 and S2, paced. ABDOMEN: Soft, nontender. EXTREMITIES: No edema. LABORATORY DATA: White blood cell count 9.9, hematocrit 34, and platelet count 55. INR 1.4 on 05/01. PH of 7.48, pCO2 of 38, pO2 of 56 on SIMV rate 14, tidal volume 500, PEEP 5, pressure support 14, and FiO2 of 35%. Sodium 136, potassium 3.8, chloride 101, CO2 of 25, BUN 63, creatinine 1.7, glucose 112. Chest x-ray shows cardiomegaly with vascular congestion bilaterally. ASSESSMENT: 1. Acute respiratory failure requiring mechanical ventilation. 2. Status post arrest/seizure episode. 3. History of cardiomyopathy. 4. Influenza type A. 5. Thrombocytopenia. 6. Chronic atrial fibrillation. PLAN: 1. Try pressure support ventilation to see if this makes him more synchronous. 2. Continue Tamiflu and antibiotics. 3. SCDs for DVT prophylaxis since he is thrombocytopenic. 4. Pepcid for GI prophylaxis. 5. Continue tube feeds. 6. Consider restarting diuretics tomorrow if okay with Cardiology. Job ID: [id number]
--- NOTE | 2019-05-05 13:55 | PDOC.CPN ---
- Subjective Date: 05/05/19 Time: 13:53 Interval history: Remains sedated intubated. - Review of Systems ROS unobtainable: due to endotracheal tube - Objective Allergies/Adverse Reactions: Allergies Allergy/AdvReac Type Severity Reaction Status Date / Time iodine Allergy Mild Hives Verified 05/02/19 00:41 spironolactone Allergy Verified 05/02/19 00:41 Visit Medications: Current Medications Acetaminophen (Tylenol) 650 mg [place] Q6H PRN PRN Reason: Fever > 101 or Mild Pain Acetaminophen (Tylenol) 650 mg PO Q6H PRN PRN Reason: Headache/Fever or Pain Last Admin: 05/03/19 17:28 Dose: 650 mg Hydrocodone Bitart/Acetaminophen ([place] 10/325) 1 tab PO Q4H PRN PRN Reason: Pain Hydrocodone Bitart/Acetaminophen (Hydrocodone-Apap 7.5-325/15) 15 ml PO Q8HR [facility] Last Admin: 05/05/19 05:40 Dose: 15 ml Albuterol/Ipratropium (Duoneb) 3 ml NEB QIDPRN PRN PRN Reason: Wheezing Aspirin (Ecotrin) 81 mg PO DAILY [facility] Last Admin: 05/05/19 09:39 Dose: 81 mg Atorvastatin Calcium (Lipitor) 40 mg PO HS [facility] Last Admin: 05/04/19 21:15 Dose: 40 mg Cyclobenzaprine HCl (Flexeril) 10 mg PO DAILY PRN PRN Reason: Muscle Pain Famotidine (Pepcid) 20 mg SLOW IVP DAILY [facility] Last Admin: 05/05/19 09:38 Dose: 20 mg Ferrous Sulfate (Feosol) 325 mg PO DAILY [facility] Last Admin: 05/05/19 09:39 Dose: 325 mg Furosemide (Lasix) 40 mg PO DAILY-AC [facility] Last Admin: 05/05/19 09:39 Dose: 40 mg Cefepime HCl 1 gm/ Sodium (Chloride) 100 mls @ 200 mls/hr IVPB Q12HR [facility] Last Admin: 05/05/19 09:38 Dose: 100 mls Fentanyl Citrate 2,000 mcg/ (Sodium Chloride) 100 mls @ 0 mls/hr IV INF [facility]; Protocol Stop: 05/31/19 22:51 Fentanyl Citrate (Fentanyl Bolus) 250 mls @ 0 mls/hr IVPB PRN PRN PRN Reason: Breakthrough pain/agitation Stop: 05/31/19 22:51 Potassium Chloride 40 meq/ (Sodium Chloride) 270 mls @ 135 mls/hr IVPB ASDIR PRN PRN Reason: FOR SERUM K+ 2.5 - 3.5 Potassium Chloride 40 meq/ (Device) 100 mls @ 50 mls/hr IVPB ASDIR PRN PRN Reason: FOR SERUM K+ 2.5 - 3.5 Magnesium Sulfate 1 gm/ Sodium (Chloride) 102 mls @ 102 mls/hr IV PRN PRN PRN Reason: MAG LEVEL 1.4 - 2.0 Magnesium Sulfate 2 gm/ Device 50 mls @ 50 mls/hr IVPB ASDIR PRN PRN Reason: MAGNESIUM < 1.4 Last Admin: 05/03/19 09:16 Dose: 50 mls Potassium Phosphate 9 mmol/ (Sodium Chloride) 103 mls @ 25.75 mls/hr IVPB ASDIR PRN PRN Reason: Phosphate 1.0-1.8 Potassium Phosphate 12 mmol/ (Sodium Chloride) 254 mls @ 63.5 mls/hr IV ASDIR PRN PRN Reason: Serum phosphate 0.5-0.9 Potassium Phosphate 15 mmol/ (Sodium Chloride) 255 mls @ 63.75 mls/hr IV ASDIR PRN PRN Reason: Serum Phos < 0.5 Vancomycin HCl 1.25 gm/ Sodium (Chloride) 250 mls @ 166.667 mls/hr IVPB 2200 [facility] Last Admin: 05/04/19 21:16 Dose: 250 mls Norepinephrine Bitartrate (Levophed) 250 mls @ 0 mls/hr IVPB INF [facility]; Protocol Lorazepam (Ativan) 2 mg SLOW IVP Q1H PRN PRN Reason: Breakthrough agitation Stop: 05/31/19 22:51 Last Admin: 05/02/19 06:34 Dose: 2 mg Magnesium Oxide (Magnesium Oxide) 400 mg PO BIDPRN PRN PRN Reason: FOR SERUM MAG 1.4 - 2.0 Magnesium Oxide (Magnesium Oxide) 800 mg PO PRN PRN PRN Reason: FOR SERUM MAG < 1.4 Magnesium Oxide (Magnesium Oxide) 200 mg PO DAILY [facility] Last Admin: 05/05/19 09:39 Dose: 200 mg Mineral Oil/White Petrolatum (Systane Nighttime Eye Ointment) 0 gm EA EYE PRN PRN PRN Reason: Dry Eyes Miscellaneous Medication (Phos-Nak) 1 pkt PO TIDPRN PRN PRN Reason: FOR PHOS LEVEL 1.0 - 1.8 Miscellaneous Medication (Phos-Nak) 2 pkt PO TIDPRN PRN PRN Reason: FOR PHOS LEVEL 0.5 - 1.0 Miscellaneous Medication (Pharmacy To Dose) 1 each IVPB PRN PRN PRN Reason: Pharmacy to dose Morphine Sulfate (Morphine) 2 mg SLOW IVP Q1H PRN PRN Reason: BREAKTHROUGH PAIN/Agitation Stop: 05/31/19 22:51 Discontinue Previous Narcotic Pain Medications And Benzodiazepines 1 each FS .ONE [facility] Stop: 05/31/19 22:51 Ccu Electrolyte (Replacement Protocol) 0 each FS PRN PRN PRN Reason: FOR ELECTROLYTE REPLACEMENT Ondansetron HCl (Zofran) 4 mg IVP Q6H PRN PRN Reason: Nausea/Vomiting Oseltamivir Phosphate (Tamiflu) 75 mg PO BID [facility] Stop: 05/06/19 09:01 Last Admin: 05/05/19 09:48 Dose: 75 mg Probenecid- (Colchicine Tablet) 0 each PO BID [facility] Potassium Chloride (K-Dur) 40 meq PO ASDIR PRN PRN Reason: FOR SERUM K+ 2.5 - 3.5 Potassium Chloride (Klor-Con) 40 meq PER TUBE ASDIR PRN PRN Reason: FOR SERUM K+ 2.5-3.5 Last Admin: 05/05/19 05:09 Dose: 40 meq Potassium Chloride (Klor-Con 10) 10 meq PO DAILY [facility] Last Admin: 05/05/19 09:39 Dose: 10 meq Propofol (Diprivan) 1,000 mg IV INF PRN; Protocol PRN Reason: TO ACHIEVE GOAL RASS Stop: 05/31/19 22:51 Last Admin: 05/04/19 17:07 Dose: 1,000 mg Propofol (Diprivan Bolus) 20 mg IV Q5MIN PRN PRN Reason: BREAKTHROUGH AGITATION Stop: 05/31/19 22:51 Sodium Chloride (Flush - Normal Saline) 10 ml IVF PRN PRN PRN Reason: Saline Flush Vital Signs & Weight: Vital Signs Temp Pulse Resp BP Pulse Ox 05/05/19 12:00 98.8 F 15 05/05/19 10:55 67 96/72 05/05/19 10:00 15 05/05/19 08:00 98.8 F 16 95 05/05/19 06:55 70 103/63 05/05/19 06:00 15 05/05/19 04:00 99.0 F 18 05/05/19 02:00 17 Admit Weight 181 lb Weight 185 lb 10.064 oz - Physical Exam General: other (S/I) HEENT: normocephaly Neck: supple neck Cardiac: irregularly regular Lungs: scattered rhonchi Abdomen: active bowel sounds Extremities: 1+ LE edema Skin: clear Musculoskeletal: normal range of motion - Labs Result Diagrams: 05/05/19 03:18 05/05/19 03:18 - Telemetry Sinus rhythms and dysrhythmias: other (Underlying afib, V paced.) - Assessment/Plan Assessment/Plan: 1. Influenza A 2. Pneumonia 3. Polymorphic VT arrest s/p ICD discharge 4. Severe non ischemic CM Ef at 15-20% 5. Chronic afib 6. Chronically elevated troponins 7. Mild CAD on recent C. BARRY: - Continue supportive care. - Mg and K check daily and replace as needed - Keep Mg above 2.0 - No more fevers. - Seizure episodes likely result of cerebral hypoperfusion from polymorphic VT. 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 He is having small improvements daily. - Critical Care Time Critical care time (mins): 30
[2019-05-05] MEDS: Propofol 1,000 MG/100 ML VIAL IV PRN (15:33)
[2019-05-05] MEDS: Atorvastatin Calcium 40 MG TAB PO SCH (21:01)
[2019-05-05 21:18] LABS: Vancomycin, Trough 20.3 ug/mL
[2019-05-05] MEDS: PROBENECID COLCHICINE PO SCH (21:58)
[2019-05-05] MEDS ORDERED: Vancomycin HCl 1 GM in Premix Bag 1 BAG IVPB SCH (22:00)
[2019-05-06 03:59] LABS: ALT (SGPT) 100 U/L (8-55); AST (SGOT) 173 U/L (5-34); Albumin 2.8 g/dL (3.5-5.0); Alkaline Phosphatase 166 U/L (40-110); Anion Gap 13 mmol/L (10-20); BUN (Urea Nitrogen) 72 mg/dL (8.4-25.7); Bilirubin, Total 6.5 mg/dL (0.2-1.2); Calc. Creatinine Clearance 45 mL/min (70-130); Calcium 9.4 mg/dL (7.8-10.44); Carbon Dioxide 26 mmol/L (22-29); Chloride 100 mmol/L (98-107); Estimated GFR-MDRD 39; Globulin 4.1 g/dL (2.4-3.5); Glucose 123 mg/dL (70-105); Magnesium 2.4 mg/dL (1.6-2.6); Potassium 4.4 mmol/L (3.5-5.1); Protein, Total 6.9 g/dL (6.0-8.3); Sodium 135 mmol/L (136-145)
[2019-05-06 05:32] LABS: #Eosinphils 0.7 thou/uL (0.0-0.7); #Monocytes 1.4 thou/uL (0.11-0.59); #Neutrophils 7.6 thou/uL (1.40-6.50); %Basophils 0.3 % (0.0-1.0); %Eosinophils 6.4 % (0.0-10.0); %Lymphocytes 17.1 % (21.0-51.0); %Monocytes 11.6 % (0.0-10.0); %Neutrophils 64.7 % (42.0-75.0); Hemoglobin 10.7 g/dL (14.0-18.0); Mean Corpuscular HGB CONC 32.2 g/dL (32.0-36.0); Mean Corpuscular Hemoglobin 34.2 pg (27.0-31.0); Mean Platelet Volume 10.6 fL (7.4-10.4); Platelet Count 54 thou/uL (130-400); Platelet Morphology Comment Appears Decreased; RBC Distribution Width 15.5 % (11.5-14.5); Red Blood Cell (RBC) Count 3.14 mill/uL (4.70-6.10); White Blood Cell (WBC) Count 11.7 thou/uL (4.8-10.8)
[2019-05-06] MEDS ORDERED: Furosemide 40 MG/4 ML VIAL SLOW IVP SCH (06:00)
--- NOTE | 2019-05-06 06:03 | PDOC.FM ---
- Subjective Subjective: No acute events overnight. - Objective MAR Reviewed: Yes Vital Signs & Weight: Vital Signs (12 hours) Temp Pulse Resp BP Pulse Ox 05/06/19 04:00 15 05/06/19 03:15 60 05/06/19 02:00 14 05/06/19 00:19 60 111/69 05/06/19 00:00 14 05/05/19 22:00 14 05/05/19 20:00 14 05/05/19 19:16 60 05/05/19 19:00 99.6 F 05/05/19 18:50 95 Weight Admit Weight 82.1 kg Weight 83.416 kg Most Recent Monitor Data Heart Rate from ECG 60 NIBP 96/60 NIBP BP-Mean 72 Respiration from ECG 13 SpO2 95 I&O: 05/04/19 05/05/19 05/06/19 06:59 06:59 06:59 Intake Total 3676 2697 792.7 Output Total 1113 1035 688 Balance 2563 1662 104.7 Result Diagrams: 05/06/19 03:18 05/06/19 03:18 Phys Exam - Physical Examination Sedated, [id number] HEENT: PERRLA scleral icterus Neck: no JVD Basilar crackles, good air movement Cardiovascular: RRR, no significant murmur Less distended today Musculoskeletal: pulses present, edema present (upper and lower extremity edema) Skin: cap refill <2 seconds Dx/Plan (1) Sepsis Code(s): A41.9 - SEPSIS, UNSPECIFIED ORGANISM Status: Acute (2) Acute and chronic respiratory failure with hypoxia Code(s): J96.21 - ACUTE AND CHRONIC RESPIRATORY FAILURE WITH HYPOXIA Status: Acute (3) Acute kidney injury superimposed on CKD Code(s): N17.9 - ACUTE KIDNEY FAILURE, UNSPECIFIED; N18.9 - CHRONIC KIDNEY DISEASE, UNSPECIFIED Status: Acute (4) HLD (hyperlipidemia) Code(s): E78.5 - HYPERLIPIDEMIA, UNSPECIFIED Status: Chronic (5) Hypertension Code(s): I10 - ESSENTIAL (PRIMARY) HYPERTENSION Status: Chronic Qualifiers: Hypertension type: essential hypertension Qualified Code(s): I10 - Essential (primary) hypertension (6) Macrocytic anemia Code(s): D53.9 - NUTRITIONAL ANEMIA, UNSPECIFIED Status: Chronic - Plan Plan: This is a 58 yo male with a pmh of COPD, HFrEF, CKD2, HTN Hospital Day 5 Code: Full DVT prophylaxis: SCDs GI prophylaxis: Pepcid Family: none at bedside Fluids: NS 20ml/hr Drips: Propofol 20mcg/kg/hr Nutrition: Jevity 1.5 55ml q4 hours Plastic: ET/NG tube, ram, 2 ivs in the left fore arm Vent settings: Spon PS 5, FIO2 40, Peep 5. Rapid shallow breathing index is less than 50, pt does not follow commands but is currently sedated, may be weanable tody Plan: Work to wean from vent, treat sepsis and likely stop abx and tamiflu today as it has been 5 days and blood cultures are negative Acute hypoxic respiratory failure 2/2 seizure vs. ventricular tachycardia -intubated and sedated -Respiratory support -Dr. Jacobs, pulmonology consulted Torsades de pointes, has not reoccurred -Currently paced -S/P magnesium replacement with goals above 2 -Continue potassium replacement with goals above 4 Sepsis 2/2 possible influenza vs CAP, improved -Hx consistent with influenza -Possible RLL pna -Cefepime, vanc, and tamiflu at this time, will stop this evening Grand mal seizure -Pt has no received any other seizure medications, will load with keppra if seizures return Hypomagnesemia, resolved Lactic acidosis, resolved Macrocytic Anemia, likely 2/2 liver disease -Folate and B12 normal in the past -Will monitor Hyperbiliruminemia likely 2/2 hepatic congestion from HFrEF -Out pt GI consult Rising transaminase -Secondary to hepatic congestion JOSE A on CKD stage 2, improved -Will monitor, likely to dry with heart failure tx Mild coagulopathy -INR 1.4, no signs of bleeding at this time. COPD, no exacerbation -Will monitor HFrEF -EF 15-20% -Will start pt on lasix once stablized -Starting IV lasix today to vijay Addendum - Attending - Attending Attestation Date/Time: 05/06/19 3051 I personally evaluated the patient and discussed the management with Dr. Bonilla I agree with the History, Examination, Assessment and Plan documented above with any addition or exceptions noted below. Patient for probably intubation today he will benefit from conditioning. Today is last day tamiflu and should be able to descalate/dc antibiotic soon
[2019-05-06 07:29] LABS: Base Excess (BEa) 1.5 mEq/L (-2.0 to +3.0); CO2 Tension 40.6 mmHg (35.0-45.0); Calcium, Ionized 1.22 mmol/L (1.12-1.30); Carboxyhemoglobin (COHb) 1.4 gm% (0.0-3.0); Hemoglobin (Hb) 11.3 g/dL (14.0-18.0); O2 Tension (PaO2) 106.9 mmHg (80.0-100.0); Potassium - ABG Lab 4.19 mmol/L (3.70-5.30); pH, Arterial 7.42 (7.35-7.45)
[2019-05-06 07:30] LABS: Puncture Site RRA
[2019-05-06] MEDS ORDERED: DC Sedation Protocol FS ONE (07:43)
--- NOTE | 2019-05-06 08:21 | PRG ---
DATE OF SERVICE: 05/06/2019 35 minutes critical time. SUBJECTIVE: The patient remains intubated on mechanical ventilation. He will wake up and follow some commands. He is currently lightly sedated on propofol. OBJECTIVE: VITAL SIGNS: Temperature 98.4, pulse 60, blood pressure 88/50, O2 saturation 100%. He is on no vasopressors. Intake for 24 hours was 1565, output 708. HEENT: Unremarkable. NECK: No adenopathy or JVD. LUNGS: Fairly clear. CARDIAC: S1, S2. Regular. ABDOMEN: Soft. EXTREMITIES: No overt edema. LABORATORY DATA: White blood cell count 9.7, hematocrit 33, and platelet count 54. PH of 7.42, pCO2 of 40, PO2 106 on CPAP 5, pressure support 14. Sodium 135, potassium 4.4, chloride 100, CO2 of 26, BUN 72, creatinine 2.1, glucose 123, AST 173, ALT 100. Chest x-ray shows cardiomegaly. No active infiltrates. ASSESSMENT: 1. Acute respiratory failure requiring mechanical ventilation. 2. Influenza A. 3. History of cardiomyopathy. 4. Status post arrest/seizure episode. 5. Thrombocytopenia. 6. Chronic atrial fibrillation. 7. Chronic kidney disease. PLAN: The patient meets criteria by spontaneous breathing trial for extubation. We will proceed with extubation today. His Tamiflu has been stopped. Antibiotics will also be stopped. We will follow. Job ID: [id number]
[2019-05-06] MEDS: Ferrous Sulfate 325 MG TAB PO SCH (09:25)
[2019-05-06] MEDS: Oseltamivir 75 MG CAP PO SCH (09:26)
[2019-05-06] MEDS: Aspirin 81 mg Enteric Coated Tablet PO SCH (09:26)
[2019-05-06] MEDS: Magnesium Oxide 400 MG TAB PO SCH (09:26)
[2019-05-06] MEDS: Famotidine/PF 20 mg/2ml Vial SLOW IVP SCH (09:26)
[2019-05-06] MEDS: Cefepime 1 GM in Sodium Chloride 0.9% 100 ML IVPB SCH (09:26)
[2019-05-06] MEDS: Potassium Chloride 10 MEQ TAB PO SCH (09:27)
[2019-05-06] MEDS: Hydrocodone-Acetamin 15 ML UDCUP PO SCH ×3 (09:56→20:28)
--- NOTE | 2019-05-06 10:37 | RAD ---
PORTABLE CHEST: Date: 05/06/2019 INDICATION: On ventilator. CCU follow-up. COMPARISON: 05/05/2019. FINDINGS/IMPRESSION: Cardiomegaly and mild vascular congestion again noted. ET tube and NG tube unchanged. AICD lead again noted. No acute infiltrate or significant interval change from yesterday. POS: [facility]
[2019-05-06] MEDS: Furosemide 20 MG/2 ML VIAL SLOW IVP SCH (15:18)
--- NOTE | 2019-05-06 16:00 | PDOC.CPN ---
- Subjective Date: 05/06/19 Time: 15:58 Interval history: He is now extubated but confused. Cannot give any history. - Review of Systems ROS unobtainable: due to mental status - Objective Allergies/Adverse Reactions: Allergies Allergy/AdvReac Type Severity Reaction Status Date / Time iodine Allergy Mild Hives Verified 05/02/19 00:41 spironolactone Allergy Verified 05/02/19 00:41 Visit Medications: Current Medications Acetaminophen (Tylenol) 650 mg [place] Q6H PRN PRN Reason: Fever > 101 or Mild Pain Acetaminophen (Tylenol) 650 mg PO Q6H PRN PRN Reason: Headache/Fever or Pain Last Admin: 05/03/19 17:28 Dose: 650 mg Hydrocodone Bitart/Acetaminophen ([place] 10/325) 1 tab PO Q4H PRN PRN Reason: Pain Hydrocodone Bitart/Acetaminophen (Hydrocodone-Apap 7.5-325/15) 15 ml PO Q8HR [facility] Last Admin: 05/06/19 14:00 Dose: Not Given Albuterol/Ipratropium (Duoneb) 3 ml NEB QIDPRN PRN PRN Reason: Wheezing Last Admin: 05/06/19 10:44 Dose: 3 ml Aspirin (Ecotrin) 81 mg PO DAILY [facility] Last Admin: 05/06/19 09:26 Dose: 81 mg Atorvastatin Calcium (Lipitor) 40 mg PO HS [facility] Last Admin: 05/05/19 21:01 Dose: 40 mg Cyclobenzaprine HCl (Flexeril) 10 mg PO DAILY PRN PRN Reason: Muscle Pain Famotidine (Pepcid) 20 mg SLOW IVP DAILY [facility] Last Admin: 05/06/19 09:26 Dose: 20 mg Ferrous Sulfate (Feosol) 325 mg PO DAILY [facility] Last Admin: 05/06/19 09:25 Dose: 325 mg Furosemide (Lasix) 20 mg SLOW IVP 0600,1400 [facility] Last Admin: 05/06/19 15:18 Dose: 20 mg Potassium Chloride 40 meq/ (Sodium Chloride) 270 mls @ 135 mls/hr IVPB ASDIR PRN PRN Reason: FOR SERUM K+ 2.5 - 3.5 Potassium Chloride 40 meq/ (Device) 100 mls @ 50 mls/hr IVPB ASDIR PRN PRN Reason: FOR SERUM K+ 2.5 - 3.5 Magnesium Sulfate 1 gm/ Sodium (Chloride) 102 mls @ 102 mls/hr IV PRN PRN PRN Reason: MAG LEVEL 1.4 - 2.0 Magnesium Sulfate 2 gm/ Device 50 mls @ 50 mls/hr IVPB ASDIR PRN PRN Reason: MAGNESIUM < 1.4 Last Admin: 05/03/19 09:16 Dose: 50 mls Potassium Phosphate 9 mmol/ (Sodium Chloride) 103 mls @ 25.75 mls/hr IVPB ASDIR PRN PRN Reason: Phosphate 1.0-1.8 Potassium Phosphate 12 mmol/ (Sodium Chloride) 254 mls @ 63.5 mls/hr IV ASDIR PRN PRN Reason: Serum phosphate 0.5-0.9 Potassium Phosphate 15 mmol/ (Sodium Chloride) 255 mls @ 63.75 mls/hr IV ASDIR PRN PRN Reason: Serum Phos < 0.5 Norepinephrine Bitartrate (Levophed) 250 mls @ 0 mls/hr IVPB INF [facility]; Protocol Magnesium Oxide (Magnesium Oxide) 400 mg PO BIDPRN PRN PRN Reason: FOR SERUM MAG 1.4 - 2.0 Magnesium Oxide (Magnesium Oxide) 800 mg PO PRN PRN PRN Reason: FOR SERUM MAG < 1.4 Magnesium Oxide (Magnesium Oxide) 200 mg PO DAILY [facility] Last Admin: 05/06/19 09:26 Dose: 200 mg Mineral Oil/White Petrolatum (Systane Nighttime Eye Ointment) 0 gm EA EYE PRN PRN PRN Reason: Dry Eyes Miscellaneous Medication (Phos-Nak) 1 pkt PO TIDPRN PRN PRN Reason: FOR PHOS LEVEL 1.0 - 1.8 Miscellaneous Medication (Phos-Nak) 2 pkt PO TIDPRN PRN PRN Reason: FOR PHOS LEVEL 0.5 - 1.0 Miscellaneous Medication (Pharmacy To Dose) 1 each IVPB PRN PRN PRN Reason: Pharmacy to dose Ccu Electrolyte (Replacement Protocol) 0 each FS PRN PRN PRN Reason: FOR ELECTROLYTE REPLACEMENT Ondansetron HCl (Zofran) 4 mg IVP Q6H PRN PRN Reason: Nausea/Vomiting Potassium Chloride (K-Dur) 40 meq PO ASDIR PRN PRN Reason: FOR SERUM K+ 2.5 - 3.5 Potassium Chloride (Klor-Con) 40 meq PER TUBE ASDIR PRN PRN Reason: FOR SERUM K+ 2.5-3.5 Last Admin: 05/05/19 05:09 Dose: 40 meq Potassium Chloride (Klor-Con 10) 10 meq PO DAILY [facility] Last Admin: 05/06/19 09:27 Dose: 10 meq Sodium Chloride (Flush - Normal Saline) 10 ml IVF PRN PRN PRN Reason: Saline Flush Vital Signs & Weight: Vital Signs Temp Pulse Resp BP Pulse Ox 05/06/19 12:00 97.8 F 05/06/19 10:44 60 23 H 99 05/06/19 10:30 60 23 H 98 05/06/19 10:00 17 05/06/19 08:30 20 05/06/19 08:00 99.3 F 05/06/19 06:54 60 100/80 05/06/19 06:00 15 05/06/19 04:00 98.4 F 15 Admit Weight 181 lb Weight 183 lb 14.4 oz - Physical Exam General: other (Confused.) HEENT: normocephaly Neck: supple neck Cardiac: regular rate and rhythm Lungs: clear to auscultation Neuro: no lateralizing findings Abdomen: active bowel sounds Extremities: 1+ LE edema Skin: clear Musculoskeletal: no pain - Labs Result Diagrams: 05/06/19 03:18 05/06/19 03:18 - Telemetry Supraventricular conduction: atrial fibrillation - Assessment/Plan Assessment/Plan: 1. Influenza A 2. Pneumonia 3. Polymorphic VT arrest s/p ICD discharge 4. Severe non ischemic CM Ef at 15-20% 5. Chronic afib 6. Chronically elevated troponins 7. Mild CAD on recent [facility]. 8. Altered mental status. BARRY: - Continue supportive care. - Mg and K check daily and replace as needed - Keep Mg above 2.0 - No more fevers. - Seizure episodes likely result of cerebral hypoperfusion from polymorphic VT. - Poor chcf prognosis. He is having small improvements daily. - Hopefully his mentation will improve. May have some level of anoxic brain injury due to his arrest and severely reduced EF.
[2019-05-06] MEDS ORDERED: Sterile Water 10 ML VIAL FS PRN (18:23)
[2019-05-06] MEDS ORDERED: Ziprasidone 20 MG VIAL IM SCH (18:30)
[2019-05-06] MEDS: Atorvastatin Calcium 40 MG TAB PO SCH (20:28)
[2019-05-06] MEDS: Morphine 2 MG/ML SYRINGE SLOW IVP PRN (23:28)
--- NOTE | 2019-05-07 03:00 | PDOC.FM ---
- Subjective Subjective: Nursing states he did well overnight. He now knows his name. He continues to yell and curse with any stimulation. He voided overnight. - Objective MAR Reviewed: Yes Vital Signs & Weight: Vital Signs (12 hours) Temp Pulse Ox 05/06/19 23:00 97.8 F 05/06/19 20:00 98.8 F 96 05/06/19 16:00 98.0 F Weight Admit Weight 82.1 kg Weight 83.416 kg Most Recent Monitor Data Heart Rate from ECG 60 NIBP 129/91 NIBP BP-Mean 103 Respiration from ECG 16 SpO2 93 I&O: 05/05/19 05/06/19 05/07/19 06:59 06:59 06:59 Intake Total 2697 1565.7 704.1 Output Total 1035 708 600 Balance 1662 857.7 104.1 Result Diagrams: 05/07/19 03:27 05/07/19 03:27 Phys Exam - Physical Examination Constitutional: NAD HEENT: PERRLA Dry mm, scleral icterus Neck: no JVD Coarse lung sounds Cardiovascular: RRR, no significant murmur Gastrointestinal: positive bowel sounds Voluntary guarding, distended Musculoskeletal: edema present (improving) GCS [id number] Skin: normal turgor Dx/Plan (1) Sepsis Code(s): A41.9 - SEPSIS, UNSPECIFIED ORGANISM Status: Acute (2) Acute and chronic respiratory failure with hypoxia Code(s): J96.21 - ACUTE AND CHRONIC RESPIRATORY FAILURE WITH HYPOXIA Status: Acute (3) Acute kidney injury superimposed on CKD Code(s): N17.9 - ACUTE KIDNEY FAILURE, UNSPECIFIED; N18.9 - CHRONIC KIDNEY DISEASE, UNSPECIFIED Status: Acute (4) HLD (hyperlipidemia) Code(s): E78.5 - HYPERLIPIDEMIA, UNSPECIFIED Status: Chronic (5) Hypertension Code(s): I10 - ESSENTIAL (PRIMARY) HYPERTENSION Status: Chronic Qualifiers: Hypertension type: essential hypertension Qualified Code(s): I10 - Essential (primary) hypertension (6) Macrocytic anemia Code(s): D53.9 - NUTRITIONAL ANEMIA, UNSPECIFIED Status: Chronic - Plan Plan: This is a 58 yo male with a pmh of COPD, HFrEF, CKD2, HTN Hospital Day 6 Code: Full DVT prophylaxis: SCDs GI prophylaxis: Pepcid Family: none at bedside Fluids: SL Drips: none Nutrition: NPO Plastic: 2 ivs in the left fore arm Plan: Diurese, improve renal function, placement Acute hypoxic respiratory failure 2/2 seizure vs. ventricular tachycardia, improving -Respiratory support -Dr. Jacobs, pulmonology consulted Acute delirium 2/2 ICU status vs. anoxic brain injury vs. metabolic encephalopathy -Ammonia level 45 -Does not follow commands, knows his name today -Plan to provide Geodon PRN for agitation Torsades de pointes, has not reoccurred -Currently paced -S/P magnesium replacement with goals above 2 -Continue potassium replacement with goals above 4 Sepsis 2/2 possible influenza A vs CAP, has finished ABX Grand mal seizure -Pt has no received any other seizure medications, will load with keppra if seizures return Hypomagnesemia, resolved Lactic acidosis, resolved Macrocytic Anemia, likely 2/2 liver disease -Folate and B12 normal in the past -Will monitor Hyperbiliruminemia likely 2/2 hepatic congestion from HFrEF -Out pt GI consult Rising transaminase -Secondary to hepatic congestion JOSE A on CKD stage 2, improved -Will monitor, likely to dry with heart failure tx Mild coagulopathy -INR 1.4, no signs of bleeding at this time. COPD, no exacerbation -Will monitor HFrEF -EF 15-20% -Starting IV lasix today to diurese Addendum - Attending - Attending Attestation Date/Time: 05/07/19 7472 I personally evaluated the patient and discussed the management with Dr. Bonilla. I agree with the History, Examination, Assessment and Plan documented above with any addition or exceptions noted below. Patient continues to improve from his cardiac arrest state. Mentation improved, unknown what he will settle at due to suspected anoxic injury. S/p treatment for Flu and PNA. Continue treatment for his chronic CHF. Anticipate may be stable for transfer out of CCU today.
[2019-05-07] MEDS: Morphine 2 MG/ML SYRINGE SLOW IVP PRN ×2 (03:56→10:10)
[2019-05-07 04:13] LABS: ALT (SGPT) 81 U/L (8-55); AST (SGOT) 121 U/L (5-34); Alkaline Phosphatase 144 U/L (40-110); Anion Gap 17 mmol/L (10-20); BUN (Urea Nitrogen) 77 mg/dL (8.4-25.7); Calc. Creatinine Clearance 44 mL/min (70-130); Carbon Dioxide 25 mmol/L (22-29); Chloride 100 mmol/L (98-107); Estimated GFR-MDRD 39; Globulin 4.6 g/dL (2.4-3.5); Glucose 90 mg/dL (70-105); Magnesium 2.3 mg/dL (1.6-2.6); Protein, Total 7.6 g/dL (6.0-8.3); Sodium 137 mmol/L (136-145)
[2019-05-07 04:40] LABS: #Basophils 0.1 thou/uL (0.0-0.2); #Eosinphils 0.1 thou/uL (0.0-0.7); #Lymphocytes 3.2 thou/uL (1.20-3.40); #Neutrophils 11.1 thou/uL (1.40-6.50); %Basophils 0.3 % (0.0-1.0); %Eosinophils 0.7 % (0.0-10.0); %Lymphocytes 19.4 % (21.0-51.0); %Monocytes 12.3 % (0.0-10.0); %Neutrophils 67.3 % (42.0-75.0); Hemoglobin 11.3 g/dL (14.0-18.0); MDiff Complete? YES; Mean Corpuscular Hemoglobin 34.5 pg (27.0-31.0); Mean Platelet Volume 11.7 fL (7.4-10.4); Platelet Count 61 thou/uL (130-400); Platelet Morphology Comment Appears Decreased; RBC Distribution Width 15.9 % (11.5-14.5); Red Blood Cell (RBC) Count 3.28 mill/uL (4.70-6.10); Target Cells SLIGHT = 2-5 cells (100X) (0-1/hpf); White Blood Cell (WBC) Count 16.5 thou/uL (4.8-10.8)
[2019-05-07] MEDS: Hydrocodone-Acetamin 15 ML UDCUP PO SCH ×3 (05:32→21:33)
[2019-05-07] MEDS: Furosemide 20 MG/2 ML VIAL SLOW IVP SCH (05:35)
[2019-05-07] MEDS: Lorazepam 2 MG/ML VIAL SLOW IVP PRN ×3 (05:35→23:50)
--- NOTE | 2019-05-07 06:23 | PDOC.FM ---
- Subjective Subjective: Nursing states he did well overnight. He now knows his name. He continues to yell and curse with any stimulation. He voided overnight. - Objective MAR Reviewed: Yes Vital Signs & Weight: Vital Signs (12 hours) Temp Pulse Ox 05/07/19 03:00 98 F 05/06/19 23:00 97.8 F 05/06/19 20:00 98.8 F 96 Weight Admit Weight 82.1 kg Weight 84 kg Most Recent Monitor Data Heart Rate from ECG 62 NIBP 139/108 NIBP BP-Mean 118 Respiration from ECG 15 SpO2 98 I&O: 05/05/19 05/06/19 05/07/19 06:59 06:59 06:59 Intake Total 2697 1565.7 704.1 Output Total 1035 708 600 Balance 1662 857.7 104.1 Result Diagrams: 05/07/19 03:27 05/07/19 03:27 Phys Exam - Physical Examination Appears calm Dry mm, scleral icterus Neck: no JVD Coarse lung sounds, good air movement Cardiovascular: RRR, no significant murmur Gastrointestinal: soft, positive bowel sounds Abdomen is distended, no masses Musculoskeletal: edema present (improving) GCS [id number] Skin: normal turgor, cap refill <2 seconds Dx/Plan (1) Sepsis Code(s): A41.9 - SEPSIS, UNSPECIFIED ORGANISM Status: Acute (2) Acute and chronic respiratory failure with hypoxia Code(s): J96.21 - ACUTE AND CHRONIC RESPIRATORY FAILURE WITH HYPOXIA Status: Acute (3) Acute kidney injury superimposed on CKD Code(s): N17.9 - ACUTE KIDNEY FAILURE, UNSPECIFIED; N18.9 - CHRONIC KIDNEY DISEASE, UNSPECIFIED Status: Acute (4) HLD (hyperlipidemia) Code(s): E78.5 - HYPERLIPIDEMIA, UNSPECIFIED Status: Chronic (5) Hypertension Code(s): I10 - ESSENTIAL (PRIMARY) HYPERTENSION Status: Chronic Qualifiers: Hypertension type: essential hypertension Qualified Code(s): I10 - Essential (primary) hypertension (6) Macrocytic anemia Code(s): D53.9 - NUTRITIONAL ANEMIA, UNSPECIFIED Status: Chronic
--- NOTE | 2019-05-07 08:59 | PRG ---
DATE OF SERVICE: 05/07/2019 SUBJECTIVE: I cannot get the patient to talk. He was extubated yesterday according to another physician's note. The patient has been yelling and cursing at the nurses with frequency. OBJECTIVE: VITAL SIGNS: Temperature is 98, pulse 60, blood pressure 132/90, O2 saturation 95% on 3 L nasal cannula. HEENT: Unremarkable. NECK: No JVD. LUNGS: Clear anteriorly. CARDIOVASCULAR: S1 and S2, paced. ABDOMEN: Soft, nontender. EXTREMITIES: No edema. LABORATORY DATA: White blood cell count 16, hematocrit 34.2, and platelet count 61. Sodium 137, potassium 5, chloride 100, CO2 of 25, BUN 77, creatinine 2.1, glucose 90. ASSESSMENT: 1. Status post acute respiratory failure requiring mechanical ventilation. 2. Influenza A. 3. History of cardiomyopathy. 4. Status post arrest or seizure episode. 5. Thrombocytopenia. 6. Chronic atrial fibrillation. 7. Chronic kidney disease. 8. Metabolic encephalopathy. PLAN: 1. The patient can be transferred out to the intermediate care unit. Telemetry would be another possibility. I am somewhat worried about his level of agitation, so IMCU would be the better choice of the two if possible. I would suggest perhaps slowing down on the diuretics as his renal function is worsening. 2. Initiate physical therapy. Job ID: [id number]
[2019-05-07] MEDS: Potassium Chloride 10 MEQ TAB PO SCH (10:00)
[2019-05-07] MEDS: Famotidine/PF 20 mg/2ml Vial SLOW IVP SCH (10:00)
[2019-05-07] MEDS: Magnesium Oxide 400 MG TAB PO SCH (10:00)
[2019-05-07] MEDS: Aspirin 81 mg Enteric Coated Tablet PO SCH (10:00)
[2019-05-07] MEDS: Ferrous Sulfate 325 MG TAB PO SCH (10:00)
[2019-05-07] MEDS: Ziprasidone 20 MG VIAL IM PRN (11:13)
[2019-05-07] MEDS ORDERED: Furosemide 40 MG/4 ML VIAL SLOW IVP SCH (14:00)
--- NOTE | 2019-05-07 18:19 | PDOC.CPN ---
- Subjective Date: 05/07/19 Time: 18:17 Interval history: He remains confused. - Review of Systems ROS unobtainable: due to mental status - Objective Allergies/Adverse Reactions: Allergies Allergy/AdvReac Type Severity Reaction Status Date / Time iodine Allergy Mild Hives Verified 05/02/19 00:41 spironolactone Allergy Verified 05/02/19 00:41 Visit Medications: Current Medications Acetaminophen (Tylenol) 650 mg [place] Q6H PRN PRN Reason: Fever > 101 or Mild Pain Acetaminophen (Tylenol) 650 mg PO Q6H PRN PRN Reason: Headache/Fever or Pain Last Admin: 05/03/19 17:28 Dose: 650 mg Hydrocodone Bitart/Acetaminophen ([place] 10/325) 1 tab PO Q4H PRN PRN Reason: Pain Hydrocodone Bitart/Acetaminophen (Hydrocodone-Apap 7.5-325/15) 15 ml PO Q8HR [facility] Last Admin: 05/07/19 14:33 Dose: Not Given Albuterol/Ipratropium (Duoneb) 3 ml NEB QIDPRN PRN PRN Reason: Wheezing Last Admin: 05/06/19 10:44 Dose: 3 ml Aspirin (Ecotrin) 81 mg PO DAILY [facility] Last Admin: 05/07/19 10:00 Dose: Not Given Atorvastatin Calcium (Lipitor) 40 mg PO HS [facility] Last Admin: 05/06/19 20:28 Dose: Not Given Cyclobenzaprine HCl (Flexeril) 10 mg PO DAILY PRN PRN Reason: Muscle Pain Famotidine (Pepcid) 20 mg PO DAILY [facility] Ferrous Sulfate (Feosol) 325 mg PO DAILY [facility] Last Admin: 05/07/19 10:00 Dose: Not Given Furosemide (Lasix) 20 mg SLOW IVP 0600,1400 [facility] Potassium Chloride 40 meq/ (Sodium Chloride) 270 mls @ 135 mls/hr IVPB ASDIR PRN PRN Reason: FOR SERUM K+ 2.5 - 3.5 Potassium Chloride 40 meq/ (Device) 100 mls @ 50 mls/hr IVPB ASDIR PRN PRN Reason: FOR SERUM K+ 2.5 - 3.5 Magnesium Sulfate 1 gm/ Sodium (Chloride) 102 mls @ 102 mls/hr IV PRN PRN PRN Reason: MAG LEVEL 1.4 - 2.0 Magnesium Sulfate 2 gm/ Device 50 mls @ 50 mls/hr IVPB ASDIR PRN PRN Reason: MAGNESIUM < 1.4 Last Admin: 05/03/19 09:16 Dose: 50 mls Potassium Phosphate 9 mmol/ (Sodium Chloride) 103 mls @ 25.75 mls/hr IVPB ASDIR PRN PRN Reason: Phosphate 1.0-1.8 Potassium Phosphate 12 mmol/ (Sodium Chloride) 254 mls @ 63.5 mls/hr IV ASDIR PRN PRN Reason: Serum phosphate 0.5-0.9 Potassium Phosphate 15 mmol/ (Sodium Chloride) 255 mls @ 63.75 mls/hr IV ASDIR PRN PRN Reason: Serum Phos < 0.5 Lorazepam (Ativan) 2 mg SLOW IVP Q6H PRN PRN Reason: Anxiety/Agitation Last Admin: 05/07/19 14:58 Dose: 2 mg Magnesium Oxide (Magnesium Oxide) 400 mg PO BIDPRN PRN PRN Reason: FOR SERUM MAG 1.4 - 2.0 Magnesium Oxide (Magnesium Oxide) 800 mg PO PRN PRN PRN Reason: FOR SERUM MAG < 1.4 Magnesium Oxide (Magnesium Oxide) 200 mg PO DAILY [facility] Last Admin: 05/07/19 10:00 Dose: Not Given Mineral Oil/White Petrolatum (Systane Nighttime Eye Ointment) 0 gm EA EYE PRN PRN PRN Reason: Dry Eyes Miscellaneous Medication (Phos-Nak) 1 pkt PO TIDPRN PRN PRN Reason: FOR PHOS LEVEL 1.0 - 1.8 Miscellaneous Medication (Phos-Nak) 2 pkt PO TIDPRN PRN PRN Reason: FOR PHOS LEVEL 0.5 - 1.0 Morphine Sulfate (Morphine) 2 mg SLOW IVP Q4H PRN PRN Reason: pain/agitation Last Admin: 05/07/19 10:10 Dose: 2 mg Ccu Electrolyte (Replacement Protocol) 0 each FS PRN PRN PRN Reason: FOR ELECTROLYTE REPLACEMENT Ondansetron HCl (Zofran) 4 mg IVP Q6H PRN PRN Reason: Nausea/Vomiting Potassium Chloride (K-Dur) 40 meq PO ASDIR PRN PRN Reason: FOR SERUM K+ 2.5 - 3.5 Potassium Chloride (Klor-Con) 40 meq PER TUBE ASDIR PRN PRN Reason: FOR SERUM K+ 2.5-3.5 Last Admin: 05/05/19 05:09 Dose: 40 meq Potassium Chloride (Klor-Con 10) 10 meq PO DAILY [facility] Last Admin: 05/07/19 10:00 Dose: Not Given Sodium Chloride (Flush - Normal Saline) 10 ml IVF PRN PRN PRN Reason: Saline Flush Sterile Water (Water For Injection) 1.2 ml FS PRN PRN PRN Reason: RECONSTITUTION Ziprasidone (Geodon) 10 mg IM Q2H PRN PRN Reason: Agitation Last Admin: 05/07/19 11:13 Dose: 10 mg Vital Signs & Weight: Vital Signs Temp Pulse Ox 05/07/19 12:00 97.9 F 05/07/19 08:30 96 05/07/19 08:00 97.9 F Admit Weight 181 lb Weight 185 lb 3.013 oz - Physical Exam General: other (Currently sleeping but arousable.) HEENT: normocephaly Neck: supple neck Cardiac: regular rate and rhythm Lungs: normal breath sounds Abdomen: active bowel sounds Extremities: other: (Trace edema.) Skin: clear Musculoskeletal: normal range of motion - Labs Result Diagrams: 05/07/19 03:27 05/07/19 03:27 - Telemetry Supraventricular conduction: atrial fibrillation - Assessment/Plan Assessment/Plan: 1. Influenza A 2. Pneumonia 3. Polymorphic VT arrest s/p ICD discharge 4. Severe non ischemic CM Ef at 15-20% 5. Chronic afib 6. Chronically elevated troponins 7. Mild CAD on recent C. 8. Altered mental status. BARRY: - CV stable - May have some level of anoxic brain injury due to his arrest and severely reduced EF. - Aviating neurological recovery.
[2019-05-07] MEDS: Atorvastatin Calcium 40 MG TAB PO SCH (21:33)
[2019-05-08] MEDS: Morphine 2 MG/ML SYRINGE SLOW IVP PRN (02:08)
[2019-05-08 03:49] LABS: #Basophils 0.1 thou/uL (0.0-0.2); #Eosinphils 0.3 thou/uL (0.0-0.7); #Lymphocytes 2.2 thou/uL (1.20-3.40); #Monocytes 1.6 thou/uL (0.11-0.59); #Neutrophils 8.9 thou/uL (1.40-6.50); %Basophils 0.5 % (0.0-1.0); %Eosinophils 2.2 % (0.0-10.0); %Neutrophils 68.3 % (42.0-75.0); Hemoglobin 11.3 g/dL (14.0-18.0); Mean Corpuscular HGB CONC 32.2 g/dL (32.0-36.0); Mean Corpuscular Hemoglobin 33.6 pg (27.0-31.0); Mean Platelet Volume 10.2 fL (7.4-10.4); Platelet Count 74 thou/uL (130-400); RBC Distribution Width 16.1 % (11.5-14.5); Red Blood Cell (RBC) Count 3.36 mill/uL (4.70-6.10)
[2019-05-08 04:12] LABS: ALT (SGPT) 62 U/L (8-55); AST (SGOT) 88 U/L (5-34); Albumin 2.9 g/dL (3.5-5.0); Alkaline Phosphatase 125 U/L (40-110); Anion Gap 19 mmol/L (10-20); BUN (Urea Nitrogen) 72 mg/dL (8.4-25.7); Bilirubin, Total 7.7 mg/dL (0.2-1.2); Calc. Creatinine Clearance 51 mL/min (70-130); Calcium 10.2 mg/dL (7.8-10.44); Carbon Dioxide 23 mmol/L (22-29); Chloride 103 mmol/L (98-107); Estimated GFR-MDRD 45; Globulin 4.5 g/dL (2.4-3.5); Glucose 85 mg/dL (70-105); Magnesium 2.1 mg/dL (1.6-2.6); Potassium 4.5 mmol/L (3.5-5.1); Protein, Total 7.4 g/dL (6.0-8.3); Sodium 140 mmol/L (136-145)
[2019-05-08] MEDS: Ziprasidone 20 MG VIAL IM PRN ×2 (04:28→15:11)
[2019-05-08] MEDS: Furosemide 20 MG/2 ML VIAL SLOW IVP SCH ×2 (06:07→15:11)
[2019-05-08] MEDS: Lorazepam 2 MG/ML VIAL SLOW IVP PRN (06:07)
[2019-05-08] MEDS: Hydrocodone-Acetamin 15 ML UDCUP PO SCH (06:07)
--- NOTE | 2019-05-08 06:34 | PDOC.FM ---
- Subjective Subjective: No acute events overnight. Pt did require some geodon and ativan for agitation - Objective MAR Reviewed: Yes Vital Signs & Weight: Vital Signs (12 hours) Temp 05/08/19 03:40 97.4 F L 05/07/19 23:46 98.0 F 05/07/19 19:21 97.7 F Weight Admit Weight 82.1 kg Weight 99.138 kg Most Recent Monitor Data Heart Rate from ECG 60 NIBP 119/81 NIBP BP-Mean 93 Respiration from ECG 12 SpO2 97 I&O: 05/06/19 05/07/19 05/08/19 06:59 06:59 06:59 Intake Total 1565.7 704.1 Output Total 708 600 500 Balance 857.7 104.1 -500 Result Diagrams: 05/08/19 03:25 05/08/19 03:25 Phys Exam - Physical Examination GCS [id number], appears lethargic but did recently receive medications HEENT: PERRLA dry mm Neck: no JVD Respiratory: no wheezing, clear to auscultation bilateral Cardiovascular: RRR, no significant murmur Distended, but improved. BS+ Musculoskeletal: no edema, pulses present Neurological: moves all 4 limbs Skin: normal turgor Dx/Plan (1) Sepsis Code(s): A41.9 - SEPSIS, UNSPECIFIED ORGANISM Status: Acute (2) Acute and chronic respiratory failure with hypoxia Code(s): J96.21 - ACUTE AND CHRONIC RESPIRATORY FAILURE WITH HYPOXIA Status: Acute (3) Acute kidney injury superimposed on CKD Code(s): N17.9 - ACUTE KIDNEY FAILURE, UNSPECIFIED; N18.9 - CHRONIC KIDNEY DISEASE, UNSPECIFIED Status: Acute (4) HLD (hyperlipidemia) Code(s): E78.5 - HYPERLIPIDEMIA, UNSPECIFIED Status: Chronic (5) Hypertension Code(s): I10 - ESSENTIAL (PRIMARY) HYPERTENSION Status: Chronic Qualifiers: Hypertension type: essential hypertension Qualified Code(s): I10 - Essential (primary) hypertension (6) Macrocytic anemia Code(s): D53.9 - NUTRITIONAL ANEMIA, UNSPECIFIED Status: Chronic - Plan Plan: This is a 58 yo male with a pmh of COPD, HFrEF, CKD2, HTN Hospital Day 7 Code: Full DVT prophylaxis: SCDs GI prophylaxis: Pepcid Family: none at bedside Fluids: SL Drips: none Nutrition: NPO Plastic: 2 ivs in the left fore arm Plan: Diurese, improve renal function, placement Acute hypoxic respiratory failure 2/2 seizure vs. ventricular tachycardia, improving -Respiratory support -Dr. Jacobs, pulmonology consulted Acute delirium 2/2 ICU status vs. anoxic brain injury vs. metabolic encephalopathy -Ammonia level 45 -Does not follow commands, knows his name today -Plan to provide Geodon PRN for agitation Torsades de pointes, has not reoccurred -Currently paced -S/P magnesium replacement with goals above 2 -Continue potassium replacement with goals above 4 Sepsis 2/2 possible influenza A vs CAP, has finished ABX Grand mal seizure -Pt has no received any other seizure medications, will load with keppra if seizures return Hypomagnesemia, resolved Lactic acidosis, resolved Macrocytic Anemia, likely 2/2 liver disease -Folate and B12 normal in the past -Will monitor Hyperbiliruminemia likely 2/2 hepatic congestion from HFrEF -Out pt GI consult Rising transaminase -Secondary to hepatic congestion JOSE A on CKD stage 2, improved -Will monitor, likely to dry with heart failure tx Mild coagulopathy -INR 1.4, no signs of bleeding at this time. COPD, no exacerbation -Will monitor HFrEF -EF 15-20% -Starting IV lasix today to diurese Addendum - Attending - Attending Attestation Date/Time: 05/08/19 1002 I personally evaluated the patient and discussed the management with Dr. Bonilla. I agree with the History, Examination, Assessment and Plan documented above with any addition or exceptions noted below. Patient appropriately responsive to questions this morning and not agitated. His mentation seems to be improving somewhat. He is still NPO due to failed swallow study, [employer] consult pending. Renal function overall stable. WBC downtrending. Continue therapy and work with CM for post acute care placement.
--- NOTE | 2019-05-08 08:59 | PRG ---
DATE OF SERVICE: 05/08/2019 SUBJECTIVE: The patient is resting in bed comfortably, had some periods of agitation last night, but looks calm this morning. OBJECTIVE: VITAL SIGNS: Temperature 97.1, pulse 60, blood pressure 116/81, and O2 sat 98%. 24-hour intake 704 and output 600. HEENT: Unremarkable. NECK: No JVD. LUNGS: Clear. CARDIAC: S1 and S2, regular. ABDOMEN: Soft. EXTREMITIES: Edematous. LABORATORY DATA: White blood cell count 13, hematocrit 35, and platelet count 74. Sodium. 140, potassium 4.5, BUN 72, creatinine 1.8, and glucose 85. ASSESSMENT: 1. Encephalopathy. 2. Status post respiratory failure, requiring mechanical ventilation. 3. Influenza A. 4. History of cardiomyopathy. PLAN: At this point, the main issue is control of his delirium/encephalopathy. His other medical problems seem stable. I have reviewed the orders and agree with current management. Job ID: [id number]
[2019-05-08] MEDS ORDERED: Famotidine 20 MG TAB PO SCH (09:00)
[2019-05-08] MEDS: Aspirin 81 mg Enteric Coated Tablet PO SCH (11:25)
[2019-05-08] MEDS: Ferrous Sulfate 325 MG TAB PO SCH (14:23)
[2019-05-08] MEDS: Magnesium Oxide 400 MG TAB PO SCH (14:23)
[2019-05-08] MEDS: Potassium Chloride 10 MEQ TAB PO SCH (14:28)
--- NOTE | 2019-05-08 18:41 | PDOC.CPN ---
- Subjective Date: 05/08/19 Time: 18:39 Interval history: Remains confused. - Review of Systems ROS unobtainable: due to mental status - Objective Allergies/Adverse Reactions: Allergies Allergy/AdvReac Type Severity Reaction Status Date / Time iodine Allergy Mild Hives Verified 05/02/19 00:41 spironolactone Allergy Verified 05/02/19 00:41 Visit Medications: Current Medications Acetaminophen (Tylenol) 650 mg [place] Q6H PRN PRN Reason: Fever > 101 or Mild Pain Acetaminophen (Tylenol) 650 mg PO Q6H PRN PRN Reason: Headache/Fever or Pain Last Admin: 05/03/19 17:28 Dose: 650 mg Hydrocodone Bitart/Acetaminophen ([place] 10/325) 1 tab PO Q4H PRN PRN Reason: Pain Albuterol/Ipratropium (Duoneb) 3 ml NEB QIDPRN PRN PRN Reason: Wheezing Last Admin: 05/06/19 10:44 Dose: 3 ml Aspirin (Ecotrin) 81 mg PO DAILY [facility] Last Admin: 05/08/19 11:25 Dose: Not Given Atorvastatin Calcium (Lipitor) 40 mg PO HS [facility] Last Admin: 05/07/19 21:33 Dose: Not Given Cyclobenzaprine HCl (Flexeril) 10 mg PO DAILY PRN PRN Reason: Muscle Pain Famotidine (Pepcid) 20 mg SLOW IVP DAILY [facility] Ferrous Sulfate (Feosol) 325 mg PO DAILY [facility] Last Admin: 05/08/19 14:23 Dose: Not Given Furosemide (Lasix) 20 mg SLOW IVP 0600,1400 [facility] Last Admin: 05/08/19 15:11 Dose: 20 mg Magnesium Oxide (Magnesium Oxide) 200 mg PO DAILY [facility] Last Admin: 05/08/19 14:23 Dose: Not Given Mineral Oil/White Petrolatum (Systane Nighttime Eye Ointment) 0 gm EA EYE PRN PRN PRN Reason: Dry Eyes Ondansetron HCl (Zofran) 4 mg IVP Q6H PRN PRN Reason: Nausea/Vomiting Sodium Chloride (Flush - Normal Saline) 10 ml IVF PRN PRN PRN Reason: Saline Flush Sterile Water (Water For Injection) 1.2 ml FS PRN PRN PRN Reason: RECONSTITUTION Ziprasidone (Geodon) 10 mg IM Q8HR [facility] Vital Signs & Weight: Vital Signs Temp Pulse Resp BP Pulse Ox 05/08/19 15:35 98.1 F 73 20 136/95 H 92 L 05/08/19 11:43 97.7 F 73 28 H 148/99 H 97 05/08/19 11:15 96.7 F L 05/08/19 10:55 97 05/08/19 08:00 96 05/08/19 07:09 97.1 F L Admit Weight 181 lb Weight 218 lb 9 oz - Physical Exam General: other (Confused.) HEENT: mucus membranes moist Neck: supple neck Cardiac: irregularly regular Lungs: normal breath sounds Neuro: no lateralizing findings Abdomen: active bowel sounds Extremities: 1+ LE edema Skin: clear Musculoskeletal: normal range of motion - Labs Result Diagrams: 05/08/19 03:25 05/08/19 03:25 - Telemetry Supraventricular conduction: atrial fibrillation - Assessment/Plan Assessment/Plan: 1. Influenza A 2. Pneumonia 3. Polymorphic VT arrest s/p ICD discharge 4. Severe non ischemic CM Ef at 15-20% 5. Chronic afib 6. Chronically elevated troponins 7. Mild CAD on recent LHC. 8. Altered mental status. BARRY: - CV stable - May have some level of anoxic brain injury due to his arrest and severely reduced EF. - Continue to monitor neurologic recovery. - Continue other meds. - Will do CT brain and if no evidence of bleding start ELiquis 5 mg BID for stroke prophylaxis.
--- NOTE | 2019-05-08 19:56 | CT ---
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 Changes of chronic small vessel ischemic disease are again seen. No evidence of acute infarct, hemorrhage, midline shift or abnormal extra-axial fluid collections is seen. The ventricular size is appropriate and the basilar cisterns are patent. The bony calvarium is intact. There is mucosal disease and fluid in the paranasal sinuses. IMPRESSION: No CT evidence of acute intracranial process.
[2019-05-08] MEDS: Ziprasidone 20 MG VIAL IM SCH (21:23)
[2019-05-09 05:06] LABS: ALT (SGPT) 50 U/L (8-55); AST (SGOT) 65 U/L (5-34); Albumin 3.1 g/dL (3.5-5.0); Alkaline Phosphatase 126 U/L (40-110); Anion Gap 18 mmol/L (10-20); BUN (Urea Nitrogen) 62 mg/dL (8.4-25.7); Bilirubin, Total 7.4 mg/dL (0.2-1.2); Calc. Creatinine Clearance 60 mL/min (70-130); Calcium 10.6 mg/dL (7.8-10.44); Carbon Dioxide 24 mmol/L (22-29); Chloride 105 mmol/L (98-107); Estimated GFR-MDRD 47; Globulin 4.6 g/dL (2.4-3.5); Glucose 85 mg/dL (70-105); Potassium 4.1 mmol/L (3.5-5.1); Protein, Total 7.7 g/dL (6.0-8.3); Sodium 143 mmol/L (136-145)
[2019-05-09] MEDS: Ziprasidone 20 MG VIAL IM SCH (05:36)
[2019-05-09] MEDS: Furosemide 20 MG/2 ML VIAL SLOW IVP SCH ×2 (05:37→14:38)
--- NOTE | 2019-05-09 06:08 | PDOC.FM ---
- Subjective Subjective: Nursing states that pt was just moaning and groaning overnight. She reports he has not been following commands for her. - Objective MAR Reviewed: Yes Vital Signs & Weight: Vital Signs (12 hours) Temp Pulse Resp BP Pulse Ox 05/09/19 04:00 97.1 F L 60 20 141/93 H 97 05/08/19 20:00 97.1 F L 60 20 136/91 H 97 Weight Admit Weight 82.1 kg Weight 95.254 kg Most Recent Monitor Data Heart Rate from ECG 76 NIBP 131/92 NIBP BP-Mean 105 Respiration from ECG 17 SpO2 97 I&O: 05/07/19 05/08/19 05/09/19 06:59 06:59 06:59 Intake Total 704.1 Output Total 600 500 Balance 104.1 -500 Result Diagrams: 05/08/19 03:25 05/09/19 03:54 Phys Exam - Physical Examination resting, NAD Dry mm Respiratory: no wheezing coarse lung sounds, likely due in part to pharyngeal radiation Cardiovascular: RRR, no significant murmur Gastrointestinal: soft Improving distension Pt continues to have trace edema in his extremities Neurological: moves all 4 limbs Does not follow commands this AM Skin: normal turgor Dx/Plan (1) Sepsis Code(s): A41.9 - SEPSIS, UNSPECIFIED ORGANISM Status: Acute (2) Acute and chronic respiratory failure with hypoxia Code(s): J96.21 - ACUTE AND CHRONIC RESPIRATORY FAILURE WITH HYPOXIA Status: Acute (3) Acute kidney injury superimposed on CKD Code(s): N17.9 - ACUTE KIDNEY FAILURE, UNSPECIFIED; N18.9 - CHRONIC KIDNEY DISEASE, UNSPECIFIED Status: Acute (4) HLD (hyperlipidemia) Code(s): E78.5 - HYPERLIPIDEMIA, UNSPECIFIED Status: Chronic (5) Hypertension Code(s): I10 - ESSENTIAL (PRIMARY) HYPERTENSION Status: Chronic Qualifiers: Hypertension type: essential hypertension Qualified Code(s): I10 - Essential (primary) hypertension (6) Macrocytic anemia Code(s): D53.9 - NUTRITIONAL ANEMIA, UNSPECIFIED Status: Chronic - Plan Plan: This is a 58 yo male with a pmh of COPD, HFrEF, CKD2, HTN Hospital Day 8 Code: Full DVT prophylaxis: SCDs, eliquis GI prophylaxis: Pepcid Family: none at bedside Fluids: SL Plan: Diurese, improve renal function, placement Acute hypoxic respiratory failure 2/2 seizure vs. ventricular tachycardia, improving -Respiratory support -Dr. Jacobs, pulmonology consulted Acute delirium 2/2 ICU status vs. anoxic brain injury vs. metabolic encephalopathy -Ammonia level 45 -Does not follow commands -Plan to provide Geodon for agitation Aphagia -Speech pathology consulted, currently NPO is recommended -Will look for reevaluation today -Will discuss with family today the possibility of a peg tube -CM and palliative consulted Torsades de pointes, has not reoccurred -Currently paced -S/P magnesium replacement with goals above 2 -Continue potassium replacement with goals above 4 Sepsis 2/2 possible influenza A vs CAP, has finished ABX Grand mal seizure -Pt has no received any other seizure medications, will load with keppra if seizures return Hypomagnesemia, resolved Lactic acidosis, resolved Macrocytic Anemia, likely 2/2 liver disease -Folate and B12 normal in the past -Will monitor Hyperbiliruminemia likely 2/2 hepatic congestion from HFrEF -Out pt GI consult Rising transaminase -Secondary to hepatic congestion JOSE A on CKD stage 2, improved -Will monitor, likely to dry with heart failure tx Mild coagulopathy COPD, no exacerbation -Will monitor HFrEF -EF 15-20% Addendum - Attending - Attending Attestation Date/Time: 05/09/19 1047 I personally evaluated the patient and discussed the management with Dr. Bonilla. I agree with the History, Examination, Assessment and Plan documented above with any addition or exceptions noted below. Patient overall stable. Continues to fail swallow study due to his encephalopathy presumed due to anoxic brain injury from his cardiac arrest. He will be re-screened today. If fails, will need discussion about options for longer term feeding as I suspect he would pull out an NG tube. Continue current mgmt and Geodon for agitation.
[2019-05-09] MEDS ORDERED: Ziprasidone 20 MG VIAL IM SCH (09:00)
[2019-05-09] MEDS: Apixaban 5 MG TAB PO SCH ×2 (09:57→21:58)
--- NOTE | 2019-05-09 10:55 | PRG ---
DATE OF SERVICE: 05/09/2019 SUBJECTIVE: The patient remains grossly encephalopathic and difficult to arouse. OBJECTIVE: VITAL SIGNS: On physical exam his temperature is 98.9, pulse 86, respirations 24, O2 saturation 95% on 2 L, blood pressure 143/86. HEENT: Unremarkable. NECK: No adenopathy or JVD. LUNGS: Clear anteriorly. CARDIAC: S1, S2 regular. ABDOMEN: Soft. EXTREMITIES: No edema. Brain CT from yesterday demonstrated no acute intracranial process. ASSESSMENT: 1. Metabolic encephalopathy. 2. Status post influenza A. 3. Status post respiratory failure, requiring mechanical ventilation. 4. Cardiomyopathy. RECOMMENDATIONS: I would minimize his sedatives as much as possible including the Geodon. No further recommendations. Job ID: [id number]
[2019-05-09] MEDS: Famotidine/PF 20 mg/2ml Vial SLOW IVP SCH (14:37)
--- NOTE | 2019-05-09 14:40 | PDOC.CPN ---
- Subjective Date: 05/09/19 Time: 14:39 Interval history: Remains non verbal. Opens eyes to stimuli but does not follow commands. - Review of Systems General: denies: fever/chills, weight/appetite/sleep changes, night sweats, fatigue Respiratory: denies: cough, congestion, shortness of breath, exercise intolerance Cardiovascular: denies: chest pain, palpitation, edema, paroxysmal nocturnal dyspnea, orthopnea Gastrointestinal: denies: nausea, vomiting, diarrhea, constipation, abd pain, GI bleeding Musculoskeletal: denies: pain, tenderness, stiffness, swelling, arthritis/ arthralgias Neurological: denies: numbness, syncope, seizure, weakness - Objective Allergies/Adverse Reactions: Allergies Allergy/AdvReac Type Severity Reaction Status Date / Time iodine Allergy Mild Hives Verified 05/02/19 00:41 spironolactone Allergy Verified 05/02/19 00:41 Visit Medications: Current Medications Acetaminophen (Tylenol) 650 mg [place] Q6H PRN PRN Reason: Fever > 101 or Mild Pain Acetaminophen (Tylenol) 650 mg PO Q6H PRN PRN Reason: Headache/Fever or Pain Last Admin: 05/03/19 17:28 Dose: 650 mg Hydrocodone Bitart/Acetaminophen ([place] 10/325) 1 tab PO Q4H PRN PRN Reason: Pain Albuterol/Ipratropium (Duoneb) 3 ml NEB QIDPRN PRN PRN Reason: Wheezing Last Admin: 05/06/19 10:44 Dose: 3 ml Apixaban (Eliquis) 5 mg PO BID [facility] Last Admin: 05/09/19 09:57 Dose: Not Given Aspirin (Ecotrin) 81 mg PO DAILY [facility] Last Admin: 05/08/19 11:25 Dose: Not Given Atorvastatin Calcium (Lipitor) 40 mg PO HS [facility] Last Admin: 05/07/19 21:33 Dose: Not Given Cyclobenzaprine HCl (Flexeril) 10 mg PO DAILY PRN PRN Reason: Muscle Pain Famotidine (Pepcid) 20 mg SLOW IVP DAILY [facility] Last Admin: 05/09/19 14:37 Dose: 20 mg Ferrous Sulfate (Feosol) 325 mg PO DAILY [facility] Last Admin: 05/08/19 14:23 Dose: Not Given Furosemide (Lasix) 20 mg SLOW IVP 0600,1400 [facility] Last Admin: 05/09/19 14:38 Dose: 20 mg Magnesium Oxide (Magnesium Oxide) 200 mg PO DAILY [facility] Last Admin: 05/08/19 14:23 Dose: Not Given Mineral Oil/White Petrolatum (Systane Nighttime Eye Ointment) 0 gm EA EYE PRN PRN PRN Reason: Dry Eyes Ondansetron HCl (Zofran) 4 mg IVP Q6H PRN PRN Reason: Nausea/Vomiting Sodium Chloride (Flush - Normal Saline) 10 ml IVF PRN PRN PRN Reason: Saline Flush Sterile Water (Water For Injection) 1.2 ml FS PRN PRN PRN Reason: RECONSTITUTION Ziprasidone (Geodon) 10 mg IM Q12HR [facility] Last Admin: 05/09/19 09:57 Dose: Not Given Vital Signs & Weight: Vital Signs Temp Pulse Resp BP Pulse Ox 05/09/19 11:32 98.8 F 66 20 141/84 H 98 05/09/19 07:50 98.9 F 86 24 H 143/86 H 95 05/09/19 04:00 97.1 F L 60 20 141/93 H 97 Admit Weight 181 lb 10.574 oz Weight 210 lb - Physical Exam General: other (non verbal. Opens eyes to verbal stimuli.) HEENT: mucus membranes moist Neck: supple neck Cardiac: irregularly regular Lungs: clear to auscultation Abdomen: active bowel sounds Extremities: 1+ LE edema Skin: clear Musculoskeletal: normal range of motion - Labs Result Diagrams: 05/08/19 03:25 05/09/19 03:54 - Telemetry Supraventricular conduction: atrial fibrillation - Assessment/Plan Assessment/Plan: 1. Influenza A 2. Pneumonia 3. Polymorphic VT arrest s/p ICD discharge 4. Severe non ischemic CM Ef at 15-20% 5. Chronic afib 6. Chronically elevated troponins 7. Mild CAD on recent [facility]. 8. Altered mental status, metabolic versus anoxic brain injury. BARRY: - CV stable - May have some level of anoxic brain injury due to his arrest and severely reduced EF. - Continue to monitor neurologic recovery. - Continue other meds. - CT brain with no bleeding or ischemic stroke. Will start Eliquis.
[2019-05-09] MEDS ORDERED: Magnesium 2 GM/50 ML 2 GM in Premix Bag 1 BAG IVPB SCH (17:15)
--- NOTE | 2019-05-09 18:00 | PDOC.EVN ---
Event Note - Event Note Event Note: I was called to evaluate Mr. Aldrich this afternoon. At 1700 I reviewed his telemetry strip that appeared concerning for Torsades. While I was in tele, his strip acutely worsened to a more sustained torsades. We were called to the bedside and the pt had his eyes wide open and was unresponsive. A code blue was called at this point, 1708. Shortly thereafter, a pulse was identified. He did not receive chest compressions. The pads were placed and an EKG was obtained showing ventricular pacing. After this event with much stimulation, the pt appeared to be near his baseline in mentation post extubation, singing, yelling , and moaning. It was decided to move the pt to [facility] for closer monitoring. Currently: Pulse 60 and paced, BP 114/88, resp 26 General: Does not follow commands, moving all extremities, appears in no distress at this time. Cardio: Regular rate, paced, no murmurs Lungs: Good air movement, no adventitious sounds Abdomen: Soft, BS present Pt received 2g of magnesium Labs ordered: BMP, mag level, trop, lactic acid, blood cultures, UA, urine cultures, CXR It is not clear what caused this event. This AM, mag was 2.0, potassium was 4.1. Earlier today, he did spike a fever. I am not starting abx at this time as the fever is the only supporting sign at this time. WBC has been trending down. If pt has positive lactic acid or UA, I would likely start cefepime for coverage. I would have low threshold for starting broad spectrum ABX if he has symptoms of systemic inflammation. Addendum - Attending - Attending Attestation Date/Time: 05/10/19 8954 I personally evaluated the patient and discussed the management with the team. I was called around 615 pm after the code was completed. I agree with the History, Examination, Assessment and Plan documented above with any addition or exceptions noted below. Patient alert but he is a bit more drowsy than I am used to seeing him. The residents tell me he has been this way since extubated. Will check lytes and replete PRN. Xfer to [facility] and d/w cardiology.
[2019-05-09 18:04] LABS: Lactic Acid 1.9 mmol/L (0.5-2.2)
--- NOTE | 2019-05-09 18:23 | RAD ---
Chest one view HISTORY: Cough and fever. COMPARISON: 05/06/2019. FINDINGS: Cardiac silhouette is magnified and enlarged. Pulmonary vasculature is upper limits of norm al. Slight leftward displacement of the mediastinum is similar in appearance to the prior study. No evidence of pneumothorax or lobar consolidation. IMPRESSION: Cardiomegaly. No active cardiopulmonary abnormalities are otherwise demonstrated.
[2019-05-09] MEDS: Atorvastatin Calcium 40 MG TAB PO SCH (21:58)
[2019-05-10 02:30] LABS: RBC/HPF 0-3 HPF (0-3); Squamous Epithelial 0-3 HPF (0-3); WBC/HPF 0-3 HPF (0-3)
[2019-05-10 02:48] LABS: Bacteria/HPF Rare-Few HPF (None Seen)
[2019-05-10] MEDS: Furosemide 20 MG/2 ML VIAL SLOW IVP SCH ×2 (06:13→13:42)
--- NOTE | 2019-05-10 07:46 | PDOC.FM ---
- Subjective Subjective: Patient AOx1 to person only. He was answering some questions appropriately and other questions he was not making sense. His main complaint today is that he is hungry. He denies chest pain, fever, chills, SOB. - Objective MAR Reviewed: Yes Vital Signs & Weight: Vital Signs (12 hours) Temp Pulse Ox 05/10/19 07:25 98.5 F 05/10/19 03:49 97.9 F 05/09/19 23:53 99.0 F 05/09/19 20:00 99.0 F 96 Weight Admit Weight 82.4 kg Weight 92.788 kg Most Recent Monitor Data Heart Rate from ECG 73 NIBP 114/75 NIBP BP-Mean 88 Respiration from ECG 22 SpO2 93 Result Diagrams: 05/08/19 03:25 05/10/19 08:55 Phys Exam - Physical Examination Constitutional: NAD HEENT: moist MMs, sclera anicteric Respiratory: no wheezing, no rales, no rhonchi, clear to auscultation bilateral Cardiovascular: RRR, no significant murmur Gastrointestinal: soft, non-tender, no distention Musculoskeletal: no edema, pulses present Neurological: non-focal Deviation from normal: AOx1 Skin: normal turgor, cap refill <2 seconds Dx/Plan (1) Acute and chronic respiratory failure with hypoxia Code(s): J96.21 - ACUTE AND CHRONIC RESPIRATORY FAILURE WITH HYPOXIA Status: Acute (2) Influenza Code(s): J11.1 - FLU DUE TO UNIDENTIFIED INFLUENZA VIRUS W OTH RESP MANIFEST Status: Resolved (3) Sepsis Code(s): A41.9 - SEPSIS, UNSPECIFIED ORGANISM Status: Resolved (4) JOSE A (acute kidney injury) Code(s): N17.9 - ACUTE KIDNEY FAILURE, UNSPECIFIED Status: Acute (5) Acute exacerbation of CHF (congestive heart failure) Code(s): I50.9 - HEART FAILURE, UNSPECIFIED Status: Acute Qualifiers: Heart failure type: systolic Qualified Code(s): I50.23 - Acute on chronic systolic (congestive) heart failure (6) LIT (obstructive sleep apnea) Code(s): G47.33 - OBSTRUCTIVE SLEEP APNEA (ADULT) (PEDIATRIC) Status: Acute (7) Alcoholic cirrhosis of liver Code(s): K70.30 - ALCOHOLIC CIRRHOSIS OF LIVER WITHOUT ASCITES Status: Chronic (8) Chronic atrial fibrillation Code(s): I48.2 - CHRONIC ATRIAL FIBRILLATION * DO NOT USE * Status: Chronic - Plan Plan: This is a 58 yo male with a pmh of COPD, HFrEF, CKD2, HTN Hospital Day 9 Code: Full DVT prophylaxis: SCDs, eliquis GI prophylaxis: Pepcid Family: none at bedside Fluids: SL Acute hypoxic respiratory failure 2/2 seizure vs. ventricular tachycardia, improving -Respiratory support -Dr. Jacobs, pulmonology consulted appreciate recs Acute delirium 2/2 ICU status vs. anoxic brain injury vs. metabolic encephalopathy -Ammonia level 45 -Improvement in following some commands -Stopped Geodon due to QT prolongation. Ativan prn Aphagia -Speech pathology consulted, currently NPO is recommended, will have re- evaluate today -Will discuss with family today the possibility of a peg tube if unable to tolerate diet -CM and palliative consulted Torsades de pointes, reoccurred yesterday 2/2 prolonged QT -Currently paced -S/P magnesium replacement with goals above 2 -Continue potassium replacement with goals above 4 Sepsis 2/2 possible influenza A vs CAP, has finished ABX Grand mal seizure -Pt has no received any other seizure medications, will load with keppra if seizures return Hypomagnesemia, resolved Lactic acidosis, resolved Macrocytic Anemia, likely 2/2 liver disease -Folate and B12 normal in the past -Will monitor Hyperbiliruminemia likely 2/2 hepatic congestion from HFrEF -Out pt GI consult Transaminitis -Secondary to hepatic congestion -Consider HIDA if pt mentation improves JOSE A on CKD stage 2, improved -Will monitor, likely to dry with heart failure tx Mild coagulopathy COPD, no exacerbation -Will monitor HFrEF -EF 15-20%
[2019-05-10] MEDS: Apixaban 5 MG TAB PO SCH ×2 (09:04→20:15)
[2019-05-10] MEDS: Famotidine/PF 20 mg/2ml Vial SLOW IVP SCH (09:06)
[2019-05-10] MEDS: Magnesium Oxide 400 MG TAB PO SCH (09:06)
[2019-05-10] MEDS: Ferrous Sulfate 325 MG TAB PO SCH (09:06)
[2019-05-10] MEDS: Aspirin 81 mg Enteric Coated Tablet PO SCH (09:06)
[2019-05-10 09:36] LABS: ALT (SGPT) 40 U/L (8-55); AST (SGOT) 47 U/L (5-34); Albumin 3.2 g/dL (3.5-5.0); Alkaline Phosphatase 117 U/L (40-110); Anion Gap 18 mmol/L (10-20); BUN (Urea Nitrogen) 57 mg/dL (8.4-25.7); Bilirubin, Total 10.5 mg/dL (0.2-1.2); Calc. Creatinine Clearance 48 mL/min (70-130); Calcium 10.7 mg/dL (7.8-10.44); Carbon Dioxide 27 mmol/L (22-29); Chloride 107 mmol/L (98-107); Estimated GFR-MDRD 38; Globulin 4.9 g/dL (2.4-3.5); Glucose 109 mg/dL (70-105); Magnesium 2.2 mg/dL (1.6-2.6); Potassium 4.1 mmol/L (3.5-5.1); Protein, Total 8.1 g/dL (6.0-8.3); Sodium 148 mmol/L (136-145)
--- NOTE | 2019-05-10 13:35 | PRG ---
DATE OF SERVICE: 05/10/2019 SUBJECTIVE: Mr. Aldrich was moved over to the [facility] because of ventricular tachycardia last night. It looks like his defibrillator pacer was able to pace him out of the rhythm. He did not require defibrillation. He is actually very awake and alert today compared to yesterday. OBJECTIVE: VITAL SIGNS: His temperature is 98.1, pulse 78, blood pressure 147/102. HEENT: Unremarkable. NECK: No JVD. LUNGS: Clear. CARDIAC: S1, S2. Regular. ABDOMEN: Soft. EXTREMITIES: No edema. LABORATORY DATA: Sodium 148, potassium 4.1, BUN 57, creatinine 2.2. ASSESSMENT: 1. Status post respiratory failure, requiring mechanical ventilation. 2. Improved encephalopathy. 3. Status post influenza A. PLAN: Cardiac rhythm being monitored. Await further input from Cardiology. Pulmonary status currently stable. We will check again on Sunday. Job ID: [id number]
[2019-05-10] MEDS: Atorvastatin Calcium 40 MG TAB PO SCH (20:15)
--- NOTE | 2019-05-10 21:16 | PDOC.BPN ---
- Brief Progress Note PT had an episode of Torsades at 20:32, pt's defibrillator went off and he reverted back to paced rhythm. Pt was less responsive at the time of event. Came to evaluate the pt immediately. He was resting in bed, moves al 4 ext, verbalizes with multiple curse words but not in sentence structure. EKG performed, showed paced rhythm at 68 bpm, QT prolonged at 636. Holding medication which could cause QT prolongation. continuous heart monitoring. Nurse notified to alert physician if any episodes on heart monitoring. Pt stable at this time.
[2019-05-11 04:10] LABS: ALT (SGPT) 34 U/L (8-55); AST (SGOT) 43 U/L (5-34); Alkaline Phosphatase 99 U/L (40-110); Anion Gap 18 mmol/L (10-20); BUN (Urea Nitrogen) 62 mg/dL (8.4-25.7); Bilirubin, Total 11.2 mg/dL (0.2-1.2); Calc. Creatinine Clearance 47 mL/min (70-130); Calcium 10.3 mg/dL (7.8-10.44); Carbon Dioxide 27 mmol/L (22-29); Chloride 108 mmol/L (98-107); Estimated GFR-MDRD 37; Globulin 4.6 g/dL (2.4-3.5); Glucose 105 mg/dL (70-105); Magnesium 2.1 mg/dL (1.6-2.6); Potassium 3.6 mmol/L (3.5-5.1); Protein, Total 7.6 g/dL (6.0-8.3); Sodium 149 mmol/L (136-145)
[2019-05-11] MEDS: Furosemide 20 MG/2 ML VIAL SLOW IVP SCH ×2 (05:16→14:16)
[2019-05-11] MEDS: Potassium Chloride 20 MEQ in Premix Bag 1 BAG IVPB SCH ×2 (06:57→10:37)
--- NOTE | 2019-05-11 07:25 | PDOC.FM ---
- Subjective Subjective: Patient went into torsades last night and his defibrillator fired and he went back into his paced rhythm. He is agitated this morning. Denies any pain, but complains of being tired and that no one will leave him alone. Per the nurse, he has been able to take his medications with applesauce and he was cleared for a nectar thick/pureed diet yesterday by speech therapy. - Objective MAR Reviewed: Yes Vital Signs & Weight: Vital Signs (12 hours) Temp Pulse Ox 05/11/19 03:28 98.7 F 05/10/19 23:29 98.5 F 05/10/19 19:56 96 05/10/19 19:32 98.8 F Weight Admit Weight 82.4 kg Weight 92.249 kg Most Recent Monitor Data Heart Rate from ECG 80 NIBP 128/99 NIBP BP-Mean 108 Respiration from ECG 21 SpO2 100 I&O: 05/10/19 05/11/19 05/12/19 06:59 06:59 06:59 Intake Total 200 100 Balance 200 100 Result Diagrams: 05/08/19 03:25 05/11/19 03:18 Phys Exam - Physical Examination Constitutional: NAD HEENT: moist MMs Neck: no nodes, supple Respiratory: no wheezing, no rales, no rhonchi, clear to auscultation bilateral Cardiovascular: RRR, no significant murmur, no rub Gastrointestinal: soft, non-tender, no distention, positive bowel sounds Musculoskeletal: no edema, pulses present Neurological: non-focal, moves all 4 limbs Skin: normal turgor, cap refill <2 seconds Dx/Plan (1) Acute and chronic respiratory failure with hypoxia Code(s): J96.21 - ACUTE AND CHRONIC RESPIRATORY FAILURE WITH HYPOXIA Status: Acute (2) Influenza Code(s): J11.1 - FLU DUE TO UNIDENTIFIED INFLUENZA VIRUS W OTH RESP MANIFEST Status: Resolved (3) Sepsis Code(s): A41.9 - SEPSIS, UNSPECIFIED ORGANISM Status: Resolved (4) JOSE A (acute kidney injury) Code(s): N17.9 - ACUTE KIDNEY FAILURE, UNSPECIFIED Status: Acute (5) Acute exacerbation of CHF (congestive heart failure) Code(s): I50.9 - HEART FAILURE, UNSPECIFIED Status: Acute Qualifiers: Heart failure type: systolic Qualified Code(s): I50.23 - Acute on chronic systolic (congestive) heart failure (6) LIT (obstructive sleep apnea) Code(s): G47.33 - OBSTRUCTIVE SLEEP APNEA (ADULT) (PEDIATRIC) Status: Acute (7) Alcoholic cirrhosis of liver Code(s): K70.30 - ALCOHOLIC CIRRHOSIS OF LIVER WITHOUT ASCITES Status: Chronic (8) Chronic atrial fibrillation Code(s): I48.2 - CHRONIC ATRIAL FIBRILLATION * DO NOT USE * Status: Chronic - Plan Plan: This is a 58 yo male with a pmh of COPD, HFrEF, CKD2, HTN Hospital Day 10 Code: Full DVT prophylaxis: SCDs, eliquis GI prophylaxis: Pepcid Family: none at bedside Acute hypoxic respiratory failure 2/2 seizure vs. ventricular tachycardia, resolved -Respiratory support -Dr. Jacobs, pulmonology consulted appreciate recs Acute delirium 2/2 ICU status vs. anoxic brain injury vs. metabolic encephalopathy -Ammonia level 45 -Improvement in following some commands -Stopped Geodon due to QT prolongation. Ativan prn Aphagia -Speech pathology consulted, currently NPO is recommended, will have re- evaluate today -Will discuss with family today the possibility of a peg tube if unable to tolerate diet -CM and palliative consulted Torsades de pointes, reoccurred yesterday 2/2 prolonged QT -Currently paced -S/P magnesium replacement with goals above 2 -Continue potassium replacement with goals above 4 Sepsis 2/2 possible influenza A vs CAP, has finished ABX Grand mal seizure -Pt has no received any other seizure medications, will load with keppra if seizures return Hypernatremia Na 149 this AM. Unknown cause at this time, likely 2/2 decreased free water intake. Free water deficit calculated at 4.6L. -Encourage po water intake and will give free water -Check urine osm and urine Na -Monitor Hypomagnesemia, resolved Lactic acidosis, resolved Macrocytic Anemia, likely 2/2 liver disease -Folate and B12 normal in the past -Will monitor Hyperbiliruminemia likely 2/2 hepatic congestion from HFrEF -Out pt GI consult Transaminitis -Secondary to hepatic congestion -Consider HIDA JOSE A on CKD stage 2, improved -Will monitor, likely to dry with heart failure tx Mild coagulopathy COPD, no exacerbation -Will monitor HFrEF -EF 15-20%
[2019-05-11] MEDS: Aspirin 81 mg Enteric Coated Tablet PO SCH (10:24)
[2019-05-11] MEDS: Magnesium Oxide 400 MG TAB PO SCH (10:24)
[2019-05-11] MEDS: Apixaban 5 MG TAB PO SCH ×2 (10:24→21:50)
[2019-05-11] MEDS: Ferrous Sulfate 325 MG TAB PO SCH (10:24)
[2019-05-11] MEDS: Dextrose 5% in Water 1,000 ML IV SCH (10:37)
[2019-05-11] MEDS: Famotidine/PF 20 mg/2ml Vial SLOW IVP SCH (10:37)
--- NOTE | 2019-05-11 13:11 | PRG ---
DATE OF SERVICE: 05/11/2019 SUBJECTIVE: The patient is yelling out almost continuously in the room to the point where he is disturbing his neighbors. He is still having episodes of torsade. OBJECTIVE: VITAL SIGNS: Temperature 97.6, pulse 83, blood pressure 146/103. HEENT: Unremarkable. NECK: No JVD. LUNGS: Clear anteriorly. CARDIAC: S1 and S2. Irregular. ABDOMEN: Soft. EXTREMITIES: No edema. ASSESSMENT: 1. Encephalopathy. 2. Multiple episodes of torsade. 3. Post influenza A. RECOMMENDATION: His electrolytes are being monitored by the [facility]. I would recommend close review of his medications and stop anything unnecessary that may be contributing to possible torsades. His prognosis is very dismal. Job ID: [id number]
--- NOTE | 2019-05-11 17:19 | PRG ---
DATE OF SERVICE: 05/10/2019 ADDENDUM: This is an addendum to the note of Dr. Teressa Alvarado. Yesterday, Mr. Aldrich had a polymorphic VT arrest, status post ICD discharge. He has a history of severe nonischemic cardiomyopathy with an EF of 15% to 20% and is in chronic atrial fibrillation. This morning, he is alert, in good spirits, laughing and joking. His potassium yesterday was above 2. He is also being followed by Cardiology. He may have had some anoxic brain injury as well. We will continue to follow with multi-specialties. Job ID: [id number]
--- NOTE | 2019-05-11 17:55 | PRG ---
DATE OF SERVICE: 05/11/2019 ADDENDUM: This is an addendum to the note of Dr. Teressa Alvarado. Mr. Aldrich had another run of torsades yesterday and was spontaneously shocked into normal sinus rhythm. He is becoming slightly volume depleted given his n.p.o. status several days ago. His sodium is up to 149 and chloride is up to 108. His BUN is 62 with a creatinine of 2.21. We will give him some free water IV D5W of 75 mL/h. Job ID: [id number]
[2019-05-11] MEDS: Atorvastatin Calcium 40 MG TAB PO SCH (21:50)
[2019-05-12] MEDS: Dextrose 5% in Water 1,000 ML IV SCH (00:37)
[2019-05-12 03:47] LABS: ALT (SGPT) 30 U/L (8-55); AST (SGOT) 48 U/L (5-34); Albumin 2.9 g/dL (3.5-5.0); Alkaline Phosphatase 96 U/L (40-110); Anion Gap 15 mmol/L (10-20); BUN (Urea Nitrogen) 53 mg/dL (8.4-25.7); Bilirubin, Total 11.4 mg/dL (0.2-1.2); Calc. Creatinine Clearance 58 mL/min (70-130); Calcium 10.4 mg/dL (7.8-10.44); Carbon Dioxide 26 mmol/L (22-29); Chloride 109 mmol/L (98-107); Estimated GFR-MDRD 48; Glucose 109 mg/dL (70-105); Magnesium 2.1 mg/dL (1.6-2.6); Protein, Total 7.9 g/dL (6.0-8.3); Sodium 146 mmol/L (136-145)
[2019-05-12] MEDS: Furosemide 20 MG/2 ML VIAL SLOW IVP SCH (05:59)
--- NOTE | 2019-05-12 06:37 | PDOC.FM ---
- Subjective Subjective: NAEO. Patient reports feeling hungry this AM. Oriented to person only. Denies being in any pain. - Objective MAR Reviewed: Yes Vital Signs & Weight: Vital Signs (12 hours) Temp Pulse Ox 05/12/19 03:23 97.4 F L 05/11/19 23:51 98.4 F 05/11/19 20:00 95 05/11/19 19:47 98.6 F Weight Admit Weight 82.4 kg Weight 92.164 kg Most Recent Monitor Data Heart Rate from ECG 84 NIBP 151/89 NIBP BP-Mean 109 Respiration from ECG 27 SpO2 96 I&O: 05/10/19 05/11/19 05/12/19 06:59 06:59 06:59 Intake Total 200 300 Balance 200 300 Result Diagrams: 05/12/19 07:15 05/12/19 03:05 Phys Exam - Physical Examination Constitutional: NAD HEENT: moist MMs Neck: supple, full ROM Respiratory: no wheezing, no rales, no rhonchi, clear to auscultation bilateral Cardiovascular: RRR Gastrointestinal: soft, non-tender, no distention, positive bowel sounds Musculoskeletal: no edema, pulses present Neurological: non-focal, moves all 4 limbs Deviation from normal: oriented to person only & not answering all questions appropriately Skin: no rash, normal turgor Dx/Plan (1) Acute and chronic respiratory failure with hypoxia Code(s): J96.21 - ACUTE AND CHRONIC RESPIRATORY FAILURE WITH HYPOXIA Status: Acute (2) Influenza Code(s): J11.1 - FLU DUE TO UNIDENTIFIED INFLUENZA VIRUS W OTH RESP MANIFEST Status: Resolved (3) Acute exacerbation of CHF (congestive heart failure) Code(s): I50.9 - HEART FAILURE, UNSPECIFIED Status: Acute Qualifiers: Heart failure type: systolic Qualified Code(s): I50.23 - Acute on chronic systolic (congestive) heart failure (4) Acute kidney injury superimposed on CKD Code(s): N17.9 - ACUTE KIDNEY FAILURE, UNSPECIFIED; N18.9 - CHRONIC KIDNEY DISEASE, UNSPECIFIED Status: Acute (5) LIT (obstructive sleep apnea) Code(s): G47.33 - OBSTRUCTIVE SLEEP APNEA (ADULT) (PEDIATRIC) Status: Acute (6) Chronic systolic (congestive) heart failure Code(s): I50.22 - CHRONIC SYSTOLIC (CONGESTIVE) HEART FAILURE Status: Chronic (7) GERD (gastroesophageal reflux disease) Code(s): K21.9 - GASTRO-ESOPHAGEAL REFLUX DISEASE WITHOUT ESOPHAGITIS Status: Chronic Qualifiers: Esophagitis presence: without esophagitis Qualified Code(s): K21.9 - Gastro -esophageal reflux disease without esophagitis (8) Hyperbilirubinemia Code(s): E80.6 - OTHER DISORDERS OF BILIRUBIN METABOLISM Status: Chronic - Plan Plan: This is a 58 yo male with a pmh of COPD, HFrEF, CKD2, HTN Hospital Day 11 Code: Full DVT prophylaxis: SCDs, eliquis GI prophylaxis: Pepcid Family: none at bedside Acute delirium 2/2 ICU status vs. anoxic brain injury vs. metabolic encephalopathy -Ammonia level 45 on presentation & down to 29 yesterday AM. -Improvement in following some commands -Stopped Geodon due to QT prolongation & will continue Ativan prn. - Poor prognosis in setting of multiple comorbidities. Palliative care consulted. Will plan to have discussion with both the patient's family and [facility] this week to discuss goals of care going forward. Aphagia -Speech therapy on board & approved patient for nectar thick diet yesterday. Will continue to advance diet per their recs as tolerated by the patient. Torsades de pointes, reoccurred on 05/10 due to prolonged QT -Currently paced -S/P magnesium replacement with goals above 2 -Continue potassium replacement with goals above 4 prolonged QT - Aware, baseline QT just over 800. Will avoid all prolonging agents & continue close tele monitoring. Grand mal seizure -No Hx of seizure disorder, EEG WNLs. Will load with keppra if seizures reoccur. Hypernatremia - Na down slightly to 146 this AM w/ a calculated 2.4L H2O deficit. Likely 2/2 decreased free water intake. Will continue gentle IVFs w/ D5W @ 75mL/hr but also encourage PO free water intake as allowed by ST. Macrocytic Anemia, likely 2/2 liver disease -Folate and B12 normal in the past -Will monitor Hyperbiliruminemia likely 2/2 hepatic congestion from HFrEF -Out pt GI consult Transaminitis -Secondary to hepatic congestion -Consider HIDA JOSE A on CKD stage 2, improving -Will monitor, likely to dry with heart failure tx COPD, not in acute exacerbation currently -Will continue to monitor respiratory status closely HFrEF -Aware, EF 15-20%. HH diet per ST recs & will continue strict I&Os & gentle IVF resuscitation until tolerating PO better & Na level comes down. Acute hypoxic respiratory failure 2/2 seizure vs. ventricular tachycardia, resolved -Respiratory support PRN -Dr. Jacobs, pulmonology, consulted appreciate recs Sepsis 2/2 possible influenza A vs CAP - Improved, patient has finished ABX course Hypomagnesemia, resolved Lactic acidosis, resolved
[2019-05-12 07:57] LABS: Band 5 % (5-11); Hemoglobin 11.8 g/dL (14.0-18.0); Lymphocytes 9 % (21-51); MDiff Complete? YES; Macrocytosis SLIGHT = 6-15 cells (100X) (0-5/hpf); Mean Corpuscular HGB CONC 31.8 g/dL (32.0-36.0); Mean Corpuscular Hemoglobin 34.3 pg (27.0-31.0); Mean Platelet Volume 9.7 fL (7.4-10.4); Monocytes 5 % (0-10); Neutrophil 79 % (42-75); Platelet Count 142 thou/uL (130-400); Platelet Morphology Comment Appears Adequate; Polychromasia SLIGHT = 2-3 cells (100X) (0-2/hpf); RBC Distribution Width 17.6 % (11.5-14.5); Reactive Lymphocytes 2 % (0-10); Red Blood Cell (RBC) Count 3.43 mill/uL (4.70-6.10); Reflex for Review?? NO; Vacuoles MODERATE; White Blood Cell (WBC) Count 18.5 thou/uL (4.8-10.8)
--- NOTE | 2019-05-12 09:40 | PRG ---
DATE OF SERVICE: 05/12/2019 SUBJECTIVE: The patient is doing reasonably well, had no complaints. OBJECTIVE: VITAL SIGNS: Temperature 97.5, pulse 84, blood pressure 114/75. HEENT: Unremarkable. NECK: No adenopathy or JVD. CHEST: Clear. CARDIAC: S1 and S2. Regular. ABDOMEN: Soft. EXTREMITIES: No edema. LABORATORY DATA: White blood cell count 18.5, hematocrit 37, and platelet count 142. Sodium 146, potassium 4, chloride 109, CO2 of 26, BUN 53, creatinine 1.7, glucose 109, bilirubin is 11.4. ASSESSMENT: 1. Multiple episodes of torsade, none last night. 2. Status post influenza A. 3. Encephalopathy. 4. Hyperbilirubinemia. RECOMMENDATIONS: 1. Continue supportive care. 2. Cardiology input regarding the torsade. 3. Stable for a move to telemetry. Job ID: [id number]
--- NOTE | 2019-05-12 09:43 | PRG ---
DATE OF SERVICE: 05/12/2019 SUBJECTIVE: Mr. Aldrich this morning is awake and alert, though somewhat confused. He states that he is hungry and would like some ice cream. His abdomen is flat and soft. He denies any abdominal pain. Particularly, he denies any right upper quadrant abdominal pain even with deep palpation. His case is extremely difficult and complicated by the fact that he is having episodes of polymorphic ventricular tachycardia. His white count has been up and down over the last week. His previous urine blood cultures were all negative. A chest x-ray does not demonstrate any evidence of a pneumonia. Possibly his gallbladder could be causing some of this inflammation and if he should develop right upper quadrant pain with fever, it would probably be prudent to at least place him on some antibiotic coverage for possible cholecystitis; however, his surgical risk is horrible and likely prohibitive. Palliative Care has been consulted and I think the family needs to be made aware that Mr. Aldrich is in a very precarious state as far as his heart condition. Perhaps they could arrive at a decision of how aggressive they want to treat his other medical problems. Job ID: [id number]
[2019-05-12] MEDS: Apixaban 5 MG TAB PO SCH ×2 (10:27→21:44)
[2019-05-12] MEDS: Acetaminophen 325 MG TAB PO PRN (10:27)
[2019-05-12] MEDS: Ferrous Sulfate 325 MG TAB PO SCH (10:27)
[2019-05-12] MEDS: Magnesium Oxide 400 MG TAB PO SCH (10:27)
[2019-05-12] MEDS: Aspirin 81 mg Enteric Coated Tablet PO SCH (10:27)
[2019-05-12] MEDS: Famotidine/PF 20 mg/2ml Vial SLOW IVP SCH (10:27)
--- NOTE | 2019-05-12 12:14 | DIS ---
DATE OF ADMISSION: 05/01/2019 DATE OF DISCHARGE: TRANSITION OF CARE NOTE: This is a 58-year-old male, well known to our service with history of heart failure with reduced ejection fraction at 15% to 20% coronary artery disease, hypertension, chronic kidney disease, who presents to the ER with abdominal cramps, body aches, watery BM, cough, nausea, vomiting, abdominal distention. He was in his usual state of health until approximately 2 a.m. with the onset of symptoms. He denies chest pain, dyspnea, or congestion. Does endorse subjective fevers and chills. In the ER, the patient received 1 L normal saline followed by maintenance rate vancomycin and cefepime. He met SIRS criteria. The patient's flu test was indeterminate x2 until a viral respiratory panel was drawn showing influenza A. In addition, blood cultures at the time of admission and later when he fevered are negative to date at this time. This goes for urine cultures as well, negative to date. The patient was therefore admitted for sepsis secondary to influenza and possible right lower lobe pneumonia, which he received antibiotics and Tamiflu for 5-day course and was stopped after that. The patient was found to have hyperbilirubinemia with a total bilirubin of 7.5. This has been elevated in the past likely due to his hepatic congestion as documented by Dr. Garza in the past. The patient had JOSE A on CKD 2 and was treated with volume resuscitation as he appeared volume down on admission. The patient has chronic microcytic anemia, thrombocytopenia with platelets at 74 on admission and these trended to be closest range during his entire stay. The patient also was treated for GERD, hyperlipidemia, LIT, COPD, chronic hypertension. HOSPITAL COURSE: On the night of his admission, the patient had run of ventricular tachycardia followed by torsades, followed by VFib. This resulted in his AICD defibrillating as well as a code called. The patient was intubated at that time in the ICU, where he remained on the ventilator. The patient was extubated on 05/06/2019. He was subsequently downgraded to IMCU followed by downgrade to telemetry. The patient was moved to telemetry on 05/08. On 05/09, in the afternoon, the patient had apparently a torsade, so I went to evaluate him at that time. He was found to be unresponsive, eyes wide open and glazed over. Code blue was called at that time. The patient did have pulses. No compressions were done. The patient was moved to the [facility] for closer observation. The patient received 2 g of magnesium as well as an EKG, chest x-ray. The following is chronological list of the imaging that he has had since he has been under my care. 1. 05/01, portable chest x-ray shows no acute process. 2. 05/01, right upper quadrant ultrasound shows persistent mild gallbladder wall thickening, small amount of fluid adjacent to the gallbladder, but there is evidence of intraperitoneal fluid adjacent to the right hepatic lobe and fluid adjacent to the gallbladder mass were attributed to the ascites as opposed to pericholecystic fluid. Given the persistence of the gallbladder wall thickening, the right upper quadrant evaluation. 3. Chest x-ray 05/01/2019 shows no acute abnormalities. Gastric catheter tip is projecting the region of the proximal gastric body probe in the region of the bladder and this is an abdomen one view. 4. CT abdomen and pelvis taken on 05/02/2019, shows new bilateral pleural effusions, mild ascites, gallbladder wall thickening, component of acalculous cholecystitis is not excluded. HIDA scan is recommended. Additional characterization, gastric catheter and Roy with other chronic findings. 5. On 05/02/2019, brain CT without contrast shows no acute intracranial abnormality, stable remote area encephalomalacia related to prior ischemic insults involving the right parietal lobe, stable severe chronic small-vessel white matter ischemic change. 6. 05/02/2019, there was a chest x-ray one-view portable shows initially stable exam other than some slight decrease in the pulmonary vascular engorgement as compared to the prior study. 7. 05/03/2019, this is a chest x-ray, portable view, no significant interval change. 8. 05/04/2019, this is a portable chest x-ray, shows lines and tubes as above. Mild interval worsening of left basilar aeration. 9. Portable chest x-ray on 05/05/2019 shows lines and tubes were in place, increased density in the mid lung zone, which could be related to atelectasis, pneumonia, possible aspiration of pneumonitis. Cardiomegaly with mild pulmonary vascular congestion. 10. 05/06/2019, one-view chest x-ray shows cardiomegaly, mild vascular congestion, again noted ET tube and NG tube. Unchanged AICD lead noted. No acute or significant interval change today. 11. Brain CT without contrast on 05/08/[address] evidence of acute intracranial process. 12. Portable chest x-ray on 05/09/2019 shows cardiomegaly, but no active cardiopulmonary abnormalities otherwise demonstrated. During the second code the patient had on , I discussed with the patient's sister, Mario that her brother is very sick and his heart is very weak as evidenced by the 2 episodes of torsades in the same hospitalization. While he is stabilized at this time, I did inform her that hospice or palliative care would be a reasonable option moving forward. She says she will think this over. In addition, at the time patient was not eating very well, we did broach the subject of the PEG tube. However, later on the and on the , the patient was tolerating p.o. intake with no issues. We will be noted from the time of the to , the patient had zero p.o. intake due to lack of communication and 2 swallow studies done by Speech Therapy. This increased p.o. intake represents the highest function that he has had since I have seen him in his hospital stay. Job ID: [id number]
--- NOTE | 2019-05-12 12:39 | PDOC.CPN ---
- Subjective Date: 05/12/19 Time: 12:37 Interval history: Much more awake now. Oriented to person only but verbal now. - Review of Systems ROS unobtainable: due to mental status - Objective Allergies/Adverse Reactions: Allergies Allergy/AdvReac Type Severity Reaction Status Date / Time iodine Allergy Mild Hives Verified 05/02/19 00:41 spironolactone Allergy Verified 05/02/19 00:41 Visit Medications: Current Medications Acetaminophen (Tylenol) 650 mg IA Q6H PRN PRN Reason: Fever > 101 or Mild Pain Acetaminophen (Tylenol) 650 mg PO Q6H PRN PRN Reason: Headache/Fever or Pain Last Admin: 05/12/19 10:27 Dose: 650 mg Hydrocodone Bitart/Acetaminophen ([place] 10/325) 1 tab PO Q4H PRN PRN Reason: Pain Albuterol/Ipratropium (Duoneb) 3 ml NEB QIDPRN PRN PRN Reason: Wheezing Last Admin: 05/06/19 10:44 Dose: 3 ml Apixaban (Eliquis) 5 mg PO BID [facility] Last Admin: 05/12/19 10:27 Dose: 5 mg Aspirin (Ecotrin) 81 mg PO DAILY [facility] Last Admin: 05/12/19 10:27 Dose: 81 mg Atorvastatin Calcium (Lipitor) 40 mg PO HS [facility] Last Admin: 05/11/19 21:50 Dose: 40 mg Cyclobenzaprine HCl (Flexeril) 10 mg PO DAILY PRN PRN Reason: Muscle Pain Famotidine (Pepcid) 20 mg SLOW IVP DAILY [facility] Last Admin: 05/12/19 10:27 Dose: 20 mg Ferrous Sulfate (Feosol) 325 mg PO DAILY [facility] Last Admin: 05/12/19 10:27 Dose: 325 mg Furosemide (Lasix) 40 mg PO DAILY-AC [facility] Magnesium Oxide (Magnesium Oxide) 200 mg PO DAILY [facility] Last Admin: 05/12/19 10:27 Dose: 200 mg Mineral Oil/White Petrolatum (Systane Nighttime Eye Ointment) 0 gm EA EYE PRN PRN PRN Reason: Dry Eyes Sodium Chloride (Flush - Normal Saline) 10 ml IVF PRN PRN PRN Reason: Saline Flush Sterile Water (Water For Injection) 1.2 ml FS PRN PRN PRN Reason: RECONSTITUTION Vital Signs & Weight: Vital Signs Temp Pulse Ox 05/12/19 11:20 97.4 F L 05/12/19 07:40 97.5 F L 96 05/12/19 03:23 97.4 F L Admit Weight 181 lb 10.574 oz Weight 203 lb 3 oz - Physical Exam General: appears well HEENT: mucus membranes moist Neck: supple neck Cardiac: irregularly regular Lungs: clear to auscultation Neuro: no lateralizing findings Abdomen: active bowel sounds Extremities: other: (Trace edema) Skin: clear Musculoskeletal: no pain - Labs Result Diagrams: 05/12/19 07:15 05/12/19 03:05 - Telemetry Sinus rhythms and dysrhythmias: other (V paced) Supraventricular conduction: atrial fibrillation - Assessment/Plan Assessment/Plan: 1. Influenza A 2. Pneumonia 3. Polymorphic VT arrest s/p ICD discharge 4. Severe non ischemic CM EF at 15-20% 5. Chronic afib 6. Chronically elevated troponins 7. Mild CAD on recent LHC. 8. Altered mental status. BARRY: - May have some level of anoxic brain injury due to his arrest and severely reduced EF. - Continue to monitor neurologic recovery. Better today. - Continue other meds. - On Eliquis 5 mg BID for stroke prophylaxis. - No bleeding on CT head.
--- NOTE | 2019-05-12 13:06 | PDOC.PALCO ---
Palliative Care Consult - Consult Details Requesting Physician: Dr Bonilla Reason for Consult: goals of care, assistance with communication prognosis/ disease, family support Family Members Present: None - Pertinent HPI 58 year old male who is followed outpatient with the [facility] program with Jeffery DAVILA. Presented to the emergency room with onset of abdominal cramping, generalized aches, cough, nausea, vomiting, abdominal distension. Onset was acute in the aco coordinator hours. No relieving factors. Emergency room identified suspected influenza, possible pneumonia as well as JOSE A, anemia. Admitted for further evaluation. Secondary to patient multiple morbidities he has experienced a complicated stay. Code with intubation 05/02, successfully extubated, and on Tele, then transferred to [facility] secondary to a code green called for ventricular tachycardia. Patient daughter is having difficulty coping with chronic conditions and lack of understanding of complexity. - Pertinent PMH CHF, CAD, HTN, TIA, CKD - Social History Smoking Status: Current some day smoker Smoking: cigarettes Alcohol Use: occasional Drug Use History: none - Medications MAR Reviewed: Yes - Allergies Allergies/Adverse Reactions: Allergies Allergy/AdvReac Type Severity Reaction Status Date / Time iodine Allergy Mild Hives Verified 05/02/19 00:41 spironolactone Allergy Verified 05/02/19 00:41 - Subjective Awake, mild confusion. Poor historian, unsure of accuracy of ROS - ROS Constitutional: weakness ENT: difficulty swallowing Respiratory: shortness of breath Cardiology: other (Denies chest pain or palpitations currently) Gastrointestinal: other (Negative for diarrhea/constipation or nausea at time of assessment) Musculoskeletal: arm pain (Right pain to lower aspect of arm) - Objective Vital Signs: Vital Signs - Most Recent Temp Pulse Resp BP Pulse Ox 97.4 F L 60 20 144/95 H 96 05/12/19 11:20 05/09/19 16:00 05/09/19 16:00 05/09/19 16:00 05/12/19 07:40 Palliative Performance Scale: 30 - Physical Exam Constitutional: confusion, ill appearing HEENT: moist MMs, scleral icterus Respiratory: diminished lung sound Cardiovascular: RRR Deviation from normal: distended Musculoskeletal: pulses present, edema present (edema mild to upper extremities) Neurology: moves all 4 limbs Psychiatric: depressed - Problem List (1) Acute and chronic respiratory failure with hypoxia Code(s): J96.21 - ACUTE AND CHRONIC RESPIRATORY FAILURE WITH HYPOXIA Current Visit: Yes Status: Acute (2) Sepsis Code(s): A41.9 - SEPSIS, UNSPECIFIED ORGANISM Current Visit: Yes Status: Resolved (3) JOSE A (acute kidney injury) Code(s): N17.9 - ACUTE KIDNEY FAILURE, UNSPECIFIED Current Visit: No Status : Acute (4) Acute exacerbation of CHF (congestive heart failure) Code(s): I50.9 - HEART FAILURE, UNSPECIFIED Current Visit: No Status: Acute Qualifiers: Heart failure type: systolic Qualified Code(s): I50.23 - Acute on chronic systolic (congestive) heart failure (5) GERD (gastroesophageal reflux disease) Code(s): K21.9 - GASTRO-ESOPHAGEAL REFLUX DISEASE WITHOUT ESOPHAGITIS Current Visit: No Status: Chronic Qualifiers: Esophagitis presence: without esophagitis Qualified Code(s): K21.9 - Gastro -esophageal reflux disease without esophagitis - Plan/Recommendations Plan: Jorge L Edwards RNcareer transition specialist communicated with family 05/09/2019, specifically patient sister who was requesting to meet with physicians. Visited with patient today, confusion. Desires that "his heart gets fixed". Family meeting 05/13/2019 at 1pm. Jorge L Edwards RN Palliative communicated with Dr Mcguire and myself. *Jeffery DAVILA communicated in relation to patient in the outpatient setting, he had been compliant for 3 weeks with medication. Lives alone with no caregiver. Palliative Care will continue to assist and support patient and family, attempt to again educate in relation to multiple morbidities and establish Goal of Care. [50] minutes spent on this encounter with >50% of the time in counseling and coordination of care. Thank you for this very appropriate consult.
[2019-05-12] MEDS: Atorvastatin Calcium 40 MG TAB PO SCH (21:44)
[2019-05-12] MEDS: HYDROcodone/Acetaminophen 10/325 mg Tablet PO PRN (23:28)
[2019-05-13 04:19] LABS: ALT (SGPT) 25 U/L (8-55); AST (SGOT) 53 U/L (5-34); Albumin 2.8 g/dL (3.5-5.0); Alkaline Phosphatase 112 U/L (40-110); Anion Gap 16 mmol/L (10-20); BUN (Urea Nitrogen) 47 mg/dL (8.4-25.7); Bilirubin, Total 11.8 mg/dL (0.2-1.2); Calc. Creatinine Clearance 64 mL/min (70-130); Carbon Dioxide 27 mmol/L (22-29); Chloride 106 mmol/L (98-107); Estimated GFR-MDRD 53; Globulin 4.8 g/dL (2.4-3.5); Glucose 89 mg/dL (70-105); Potassium 3.6 mmol/L (3.5-5.1); Protein, Total 7.6 g/dL (6.0-8.3); Sodium 145 mmol/L (136-145)
--- NOTE | 2019-05-13 06:13 | PDOC.FM ---
- Subjective Subjective: NAEO. Patient reports feeling well this AM. Denies any pain or difficulty breathing. Denies swelling of his legs or abdomen. Oriented to person & city. Much more neurological intact today. - Objective MAR Reviewed: Yes Vital Signs & Weight: Vital Signs (12 hours) Temp Pulse Ox 05/13/19 04:14 97.3 F L 05/13/19 03:52 93 L 05/12/19 23:52 97.3 F L 05/12/19 20:00 97.8 F 94 L Weight Admit Weight 82.4 kg Weight 90.129 kg Most Recent Monitor Data Heart Rate from ECG 70 NIBP 127/87 NIBP BP-Mean 100 Respiration from ECG 10 SpO2 93 I&O: 05/11/19 05/12/19 05/13/19 06:59 06:59 06:59 Intake Total 200 1222 1464 Balance 200 1222 1464 Result Diagrams: 05/12/19 07:15 05/13/19 03:38 Phys Exam - Physical Examination Constitutional: NAD HEENT: moist MMs Neck: supple, full ROM Respiratory: no wheezing, no rales, no rhonchi, clear to auscultation bilateral decreased breath sounds in B/L bases Cardiovascular: RRR Gastrointestinal: soft, non-tender, no distention, positive bowel sounds Musculoskeletal: no edema, pulses present Neurological: non-focal, moves all 4 limbs Psychiatric: normal affect Deviation from normal: oriented to person only Skin: no rash, normal turgor Dx/Plan (1) Acute and chronic respiratory failure with hypoxia Code(s): J96.21 - ACUTE AND CHRONIC RESPIRATORY FAILURE WITH HYPOXIA Status: Acute (2) Influenza Code(s): J11.1 - FLU DUE TO UNIDENTIFIED INFLUENZA VIRUS W OTH RESP MANIFEST Status: Resolved (3) Acute exacerbation of CHF (congestive heart failure) Code(s): I50.9 - HEART FAILURE, UNSPECIFIED Status: Acute Qualifiers: Heart failure type: systolic Qualified Code(s): I50.23 - Acute on chronic systolic (congestive) heart failure (4) Acute kidney injury superimposed on CKD Code(s): N17.9 - ACUTE KIDNEY FAILURE, UNSPECIFIED; N18.9 - CHRONIC KIDNEY DISEASE, UNSPECIFIED Status: Acute (5) LIT (obstructive sleep apnea) Code(s): G47.33 - OBSTRUCTIVE SLEEP APNEA (ADULT) (PEDIATRIC) Status: Acute (6) Chronic systolic (congestive) heart failure Code(s): I50.22 - CHRONIC SYSTOLIC (CONGESTIVE) HEART FAILURE Status: Chronic (7) GERD (gastroesophageal reflux disease) Code(s): K21.9 - GASTRO-ESOPHAGEAL REFLUX DISEASE WITHOUT ESOPHAGITIS Status: Chronic Qualifiers: Esophagitis presence: without esophagitis Qualified Code(s): K21.9 - Gastro -esophageal reflux disease without esophagitis (8) Hyperbilirubinemia Code(s): E80.6 - OTHER DISORDERS OF BILIRUBIN METABOLISM Status: Chronic - Plan Plan: This is a 58 yo male with a pmh of COPD, HFrEF, CKD2, HTN Hospital Day 11 Code: Full DVT prophylaxis: SCDs, eliquis GI prophylaxis: Pepcid Family: none at bedside Acute delirium 2/2 ICU status vs. anoxic brain injury vs. metabolic encephalopathy, improving -Ammonia level 45 on presentation & down to 29 yesterday AM. -Improvement in following some commands -Stopped Geodon due to QT prolongation & will continue Ativan prn. -Poor prognosis in setting of multiple comorbidities. Palliative care consulted w/ family meeting [facility] for today to discuss plan/goals of care. However, much more oriented on exam today so may just need a little more time to recover s/p his code blue. Aphagia -Speech therapy on board & approved patient for nectar thick diet over weekend. Will continue to advance diet per their recs as tolerated by the patient. Torsades de pointes, reoccurred on 05/10 due to prolonged QT -Currently paced -S/P magnesium replacement with goals above 2 -Continue potassium replacement with goals above 4 prolonged QT - Aware, baseline QT just over 800. Will avoid all prolonging agents & continue close tele monitoring. Grand mal seizure -No Hx of seizure disorder, EEG WNLs. Will load with keppra if seizures reoccur. Hypernatremia - Na down to 145 this AM w/ a calculated 1.9L H2O deficit. Likely 2/2 decreased free water intake. Will continue gentle IVFs w/ D5W @ 75mL/hr but also encourage PO free water intake as allowed by ST. Macrocytic Anemia, likely 2/2 liver disease -Folate and B12 normal in the past -Will monitor Hyperbiliruminemia likely 2/2 hepatic congestion from HFrEF -Out pt GI consult Transaminitis -Secondary to hepatic congestion -Consider HIDA JOSE A on CKD stage 2, improving -Will continue gentle IVFs, careful not to volume overload in setting of severe HFrEF. COPD, not in acute exacerbation currently -Will continue to monitor respiratory status closely HFrEF -Aware, EF 15-20%. HH diet per ST recs & will continue strict I&Os & gentle IVF resuscitation until tolerating PO better & Na level comes down. Acute hypoxic respiratory failure 2/2 seizure vs. ventricular tachycardia, resolved -Respiratory support PRN -Dr. Jacobs, pulmonology, consulted appreciate recs Sepsis 2/2 possible influenza A vs CAP - Improved, patient has finished ABX course Hypomagnesemia, resolved Lactic acidosis, resolved Dispo: Tx to medical floor today and PC meeting with family to discuss goals of care.
[2019-05-13] MEDS ORDERED: Furosemide 40 MG TAB PO SCH (07:30)
[2019-05-13] MEDS ORDERED: Potassium Chloride 20 MEQ TAB PO SCH (08:00)
[2019-05-13] MEDS ORDERED: Magnesium Oxide 400 MG TAB PO SCH (09:00)
--- NOTE | 2019-05-13 09:05 | PRG ---
DATE OF SERVICE: 05/13/2019 SUBJECTIVE: The patient seems to be doing well. He is talking more. No complaints. OBJECTIVE: VITAL SIGNS: Temperature 96.8, pulse 81, blood pressure 125/76, O2 saturation 92%. HEENT: Unremarkable. NECK: No adenopathy or JVD. LUNGS: Fairly clear. CARDIAC: S1 and S2. Regular. ABDOMEN: Soft. EXTREMITIES: No edema. LABORATORY DATA: Sodium 145, potassium 3.6, chloride 106, CO2 of 27, BUN 47, creatinine 1.6, glucose 89. ASSESSMENT: 1. Status post torsade, multiple episodes. 2. Influenza with pneumonia, resolved. PLAN: Probably, ready for next level of care. No further recommendations at this time. Job ID: [id number]
[2019-05-13] MEDS: Aspirin 81 mg Enteric Coated Tablet PO SCH (09:44)
[2019-05-13] MEDS: Famotidine/PF 20 mg/2ml Vial SLOW IVP SCH (09:44)
[2019-05-13] MEDS: Ferrous Sulfate 325 MG TAB PO SCH (09:44)
[2019-05-13] MEDS: Apixaban 5 MG TAB PO SCH ×2 (09:44→20:53)
--- NOTE | 2019-05-13 10:01 | EKG ---
Test Reason : Blood Pressure : / mmHG Vent. Rate : 068 BPM Atrial Rate : 055 BPM P-R Int : 000 ms QRS Dur : 176 ms QT Int : 596 ms P-R-T Axes : 000 265 078 degrees QTc Int : 633 ms Electronic ventricular pacemaker Abnormal ECG Confirmed by CARLOTA RODRIGUEZ ([id number]) on 05/13/2019 10:01:25 AM Referred By: DAMON Confirmed By:CARLOTA RODRIGUEZ
--- NOTE | 2019-05-13 10:05 | EKG ---
Test Reason : CP Blood Pressure : / mmHG Vent. Rate : 072 BPM Atrial Rate : 041 BPM P-R Int : 000 ms QRS Dur : 194 ms QT Int : 636 ms P-R-T Axes : 000 089 -23 degrees QTc Int : 696 ms Electronic ventricular pacemaker When compared with ECG of 02-MAY-2019 08:25, (Unconfirmed) Vent. rate has decreased BY 11 BPM Confirmed by CARLOTA RODRIGUEZ ([id number]) on 05/13/2019 10:05:26 AM Referred By: EARLINE Confirmed By:CARLOTA RODRIGUEZ
--- NOTE | 2019-05-13 10:11 | EKG ---
Test Reason : STAT VTACH Blood Pressure : / mmHG Vent. Rate : 068 BPM Atrial Rate : 069 BPM P-R Int : 000 ms QRS Dur : 192 ms QT Int : 636 ms P-R-T Axes : 000 -22 088 degrees QTc Int : 676 ms Electronic ventricular pacemaker Confirmed by CARLOTA RODRIGUEZ ([id number]) on 05/13/2019 10:11:15 AM Referred By: CORINA Confirmed By:CARLOTA RODRIGUEZ
--- NOTE | 2019-05-13 10:42 | PRG ---
DATE OF SERVICE: 05/13/2019 ADDENDUM: Addendum to the note of Dr. Malini Mcguire. Mr. Aldrich has remarkably improved as far as his sensorium. He is awake, alert, and cracking jokes about the [employer] cheating scandal. He has had no further episodes of torsades and is ready for transfer to the telemetry floor bed. Palliative Care did meet with the patient and his family and we appreciate their input. It is problem that the family does not understand the seriousness of Mr. Aldrich's illness. We will continue talking and working with them along with Palliative Care Team. Job ID: [id number]
--- NOTE | 2019-05-13 18:29 | PDOC.CPN ---
- Subjective Date: 05/13/19 Time: 18:27 Interval history: Much more awake today. Still not quite to baseline but significantly improved. - Review of Systems General: denies: fever/chills, weight/appetite/sleep changes, night sweats, fatigue Respiratory: denies: cough, congestion, shortness of breath, exercise intolerance Cardiovascular: denies: chest pain, palpitation, edema, paroxysmal nocturnal dyspnea, orthopnea Gastrointestinal: denies: nausea, vomiting, diarrhea, constipation, abd pain, GI bleeding Musculoskeletal: denies: pain, tenderness, stiffness, swelling, arthritis/ arthralgias Neurological: denies: numbness, syncope, seizure, weakness - Objective Allergies/Adverse Reactions: Allergies Allergy/AdvReac Type Severity Reaction Status Date / Time iodine Allergy Mild Hives Verified 05/02/19 00:41 spironolactone Allergy Verified 05/02/19 00:41 Visit Medications: Current Medications Acetaminophen (Tylenol) 650 mg MS Q6H PRN PRN Reason: Fever > 101 or Mild Pain Acetaminophen (Tylenol) 650 mg PO Q6H PRN PRN Reason: Headache/Fever or Pain Last Admin: 05/12/19 10:27 Dose: 650 mg Hydrocodone Bitart/Acetaminophen ([place] 10/325) 1 tab PO Q4H PRN PRN Reason: Pain Last Admin: 05/12/19 23:28 Dose: 1 tab Albuterol/Ipratropium (Duoneb) 3 ml NEB QIDPRN PRN PRN Reason: Wheezing Last Admin: 05/06/19 10:44 Dose: 3 ml Apixaban (Eliquis) 5 mg PO BID [facility] Last Admin: 05/13/19 09:44 Dose: 5 mg Aspirin (Ecotrin) 81 mg PO DAILY [facility] Last Admin: 05/13/19 09:44 Dose: 81 mg Atorvastatin Calcium (Lipitor) 40 mg PO HS [facility] Last Admin: 05/12/19 21:44 Dose: 40 mg Cyclobenzaprine HCl (Flexeril) 10 mg PO DAILY PRN PRN Reason: Muscle Pain Famotidine (Pepcid) 20 mg SLOW IVP DAILY [facility] Last Admin: 05/13/19 09:44 Dose: 20 mg Ferrous Sulfate (Feosol) 325 mg PO DAILY [facility] Last Admin: 05/13/19 09:44 Dose: 325 mg Furosemide (Lasix) 40 mg PO DAILY-[facility] Last Admin: 05/13/19 09:45 Dose: 40 mg Magnesium Oxide (Magnesium Oxide) 400 mg PO DAILY [facility] Last Admin: 05/13/19 09:44 Dose: 400 mg Mineral Oil/White Petrolatum (Systane Nighttime Eye Ointment) 0 gm EA EYE PRN PRN PRN Reason: Dry Eyes Potassium Chloride (K-Dur) 40 meq PO QAM-WM [facility] Last Admin: 05/13/19 09:44 Dose: 40 meq Sodium Chloride (Flush - Normal Saline) 10 ml IVF PRN PRN PRN Reason: Saline Flush Sterile Water (Water For Injection) 1.2 ml FS PRN PRN PRN Reason: RECONSTITUTION Vital Signs & Weight: Vital Signs Temp Pulse BP BP Pulse Ox Pulse Ox 05/13/19 15:55 96.8 F L 05/13/19 13:19 82 133/84 93 L 05/13/19 12:00 135/78 05/13/19 07:45 96.8 F L 05/13/19 07:04 95 Admit Weight 181 lb 10.574 oz Weight 198 lb 11.2 oz - Physical Exam General: appears well HEENT: mucus membranes moist Neck: supple neck Cardiac: irregularly regular Lungs: normal breath sounds Neuro: grossly intact Abdomen: active bowel sounds Extremities: no edema Skin: clear Musculoskeletal: no pain - Labs Result Diagrams: 05/12/19 07:15 05/13/19 03:38 - Telemetry Supraventricular conduction: atrial fibrillation - Assessment/Plan Assessment/Plan: 1. Influenza A 2. Pneumonia 3. Polymorphic VT arrest s/p ICD discharge 4. Severe non ischemic CM EF at 15-20% 5. Chronic afib 6. Chronically elevated troponins 7. Mild CAD on recent [facility]. 8. Altered mental status. BARRY: - Mentation improved. - Continue other meds. - On Eliquis 5 mg BID for stroke prophylaxis. - Avoid any agent that may prolongue QTc. - Restart Home dose of diuretic. - Will restart home dose of Coreg and if tolerated Losartan in next few days.
[2019-05-13] MEDS: HYDROcodone/Acetaminophen 10/325 mg Tablet PO PRN (20:52)
[2019-05-13] MEDS: Atorvastatin Calcium 40 MG TAB PO SCH (20:53)
[2019-05-14 05:04] LABS: ALT (SGPT) 23 U/L (8-55); AST (SGOT) 50 U/L (5-34); Albumin 2.8 g/dL (3.5-5.0); Alkaline Phosphatase 110 U/L (40-110); Anion Gap 15 mmol/L (10-20); BUN (Urea Nitrogen) 42 mg/dL (8.4-25.7); Bilirubin, Total 10.3 mg/dL (0.2-1.2); Calc. Creatinine Clearance 60 mL/min (70-130); Calcium 9.7 mg/dL (7.8-10.44); Carbon Dioxide 26 mmol/L (22-29); Chloride 103 mmol/L (98-107); Estimated GFR-MDRD 51; Globulin 4.7 g/dL (2.4-3.5); Glucose 86 mg/dL (70-105); Magnesium 1.9 mg/dL (1.6-2.6); Potassium 3.4 mmol/L (3.5-5.1); Protein, Total 7.5 g/dL (6.0-8.3); Sodium 141 mmol/L (136-145)
[2019-05-14] MEDS ORDERED: Magnesium 2 GM/50 ML 1 GM in Premix Bag 1 BAG IVPB SCH (06:15)
--- NOTE | 2019-05-14 06:22 | PDOC.FM ---
- Subjective Subjective: NAEO. Mentation continues to improve day to day. Denies being in any pain or having trouble breathing. - Objective MAR Reviewed: Yes Vital Signs & Weight: Vital Signs (12 hours) Temp Pulse Resp BP BP Pulse Ox 05/14/19 04:00 97.5 F L 73 20 123/84 92 L 05/14/19 00:00 98.2 F 77 20 128/80 96 05/13/19 20:00 98.3 F 86 18 117/75 93 L Weight Admit Weight 82.4 kg Weight 90.129 kg Most Recent Monitor Data Heart Rate from ECG 79 NIBP 125/76 NIBP BP-Mean 92 Respiration from ECG 18 SpO2 83 I&O: 05/12/19 05/13/19 05/14/19 06:59 06:59 06:59 Intake Total 1222 1464 Balance 1222 1464 Result Diagrams: 05/12/19 07:15 05/14/19 04:27 Phys Exam - Physical Examination Constitutional: NAD HEENT: moist MMs Neck: supple, full ROM Respiratory: no wheezing, no rales, no rhonchi, clear to auscultation bilateral Cardiovascular: RRR, no significant murmur Gastrointestinal: soft, non-tender, no distention, positive bowel sounds Musculoskeletal: no edema Neurological: non-focal, moves all 4 limbs Psychiatric: normal affect Deviation from normal: oriented to person and place Skin: normal turgor Dx/Plan (1) Acute and chronic respiratory failure with hypoxia Code(s): J96.21 - ACUTE AND CHRONIC RESPIRATORY FAILURE WITH HYPOXIA Status: Acute (2) Influenza Code(s): J11.1 - FLU DUE TO UNIDENTIFIED INFLUENZA VIRUS W OTH RESP MANIFEST Status: Resolved (3) Acute exacerbation of CHF (congestive heart failure) Code(s): I50.9 - HEART FAILURE, UNSPECIFIED Status: Acute Qualifiers: Heart failure type: systolic Qualified Code(s): I50.23 - Acute on chronic systolic (congestive) heart failure (4) Acute kidney injury superimposed on CKD Code(s): N17.9 - ACUTE KIDNEY FAILURE, UNSPECIFIED; N18.9 - CHRONIC KIDNEY DISEASE, UNSPECIFIED Status: Acute (5) LIT (obstructive sleep apnea) Code(s): G47.33 - OBSTRUCTIVE SLEEP APNEA (ADULT) (PEDIATRIC) Status: Acute (6) Chronic systolic (congestive) heart failure Code(s): I50.22 - CHRONIC SYSTOLIC (CONGESTIVE) HEART FAILURE Status: Chronic (7) GERD (gastroesophageal reflux disease) Code(s): K21.9 - GASTRO-ESOPHAGEAL REFLUX DISEASE WITHOUT ESOPHAGITIS Status: Chronic Qualifiers: Esophagitis presence: without esophagitis Qualified Code(s): K21.9 - Gastro -esophageal reflux disease without esophagitis (8) Hyperbilirubinemia Code(s): E80.6 - OTHER DISORDERS OF BILIRUBIN METABOLISM Status: Chronic - Plan Plan: This is a 58 yo male with a pmh of COPD, HFrEF, CKD2, HTN Hospital Day 12 Code: Full DVT prophylaxis: eliquis GI prophylaxis: Pepcid Family: none at bedside Acute delirium 2/2 ICU status vs. anoxic brain injury vs. metabolic encephalopathy, improving -Ammonia level 45 on presentation & down to 29 yesterday AM. -Improvement in following some commands -Stopped Geodon due to QT prolongation & will continue Ativan prn. -Still has a poor overall [facility] prognosis in setting of multiple comorbidities. Palliative care met w/ family yesterday to discuss plan/goals of care. Referral to [facility] for SNF care pending per CM. Aphagia, improving -Speech therapy on board & approved patient for nectar thick diet over weekend. Will continue to advance diet per their recs as tolerated by the patient. Torsades de pointes, reoccurred on 05/10 due to prolonged QT -Currently paced -S/P magnesium replacement with goals above 2 -Continue potassium replacement with goals above 4 prolonged QT - Aware, baseline QT just over 800. Will avoid all prolonging agents & continue close tele monitoring. Grand mal seizure -No Hx of seizure disorder, EEG WNLs. Will load with keppra if seizures reoccur. Hypernatremia, resolved - Na down to 141 this AM. Will continue PO hydration & continue to trend. Macrocytic Anemia, likely 2/2 liver disease -Folate and B12 normal in the past -Will monitor Hyperbiliruminemia likely 2/2 hepatic congestion from HFrEF -Out pt GI consult Transaminitis -Secondary to hepatic congestion -Consider HIDA JOSE A on CKD stage 2, improving -Will continue gentle IVFs, careful not to volume overload in setting of severe HFrEF. COPD, not in acute exacerbation currently -Will continue to monitor respiratory status closely. PRN Duonebs. HFrEF -Aware, EF 15-20%. HH diet per ST recs & will continue strict I&Os & PO hydration w/ strict fluid restriction yet. BB resumed by cards yesterday & will resume ARB as tolerated by patient per their recs. Resuming home diuretic today also per cards recs. Appreciate recs. Hypomagnesemia -Mg down to 1.9 this AM. Will replace w/ 1g IV & continue 200mg PO QD. Hypokalemia -K 3.4 this AM. Will give 40mEq PO BID today & continue to trend. Acute hypoxic respiratory failure 2/2 seizure vs. ventricular tachycardia, resolved -Respiratory support PRN -Dr. Jacobs, pulmonology, consulted appreciate recs Sepsis 2/2 possible influenza A vs CAP - Improved, patient has finished ABX course Lactic acidosis, resolved Dispo: Stable on medical floor. D/c pending SNF placement.
[2019-05-14] MEDS ORDERED: Bumetanide 1 MG TAB PO SCH (09:00)
[2019-05-14] MEDS: Losartan 25 MG TAB PO SCH (09:52)
[2019-05-14] MEDS: Aspirin 81 mg Enteric Coated Tablet PO SCH (09:52)
[2019-05-14] MEDS: Carvedilol 3.125 MG TAB PO SCH ×2 (09:54→17:06)
[2019-05-14] MEDS: Apixaban 5 MG TAB PO SCH ×2 (09:55→21:59)
[2019-05-14] MEDS: HYDROcodone/Acetaminophen 10/325 mg Tablet PO PRN (09:55)
[2019-05-14] MEDS: Ferrous Sulfate 325 MG TAB PO SCH (09:58)
[2019-05-14] MEDS: Magnesium Oxide 400 MG TAB PO SCH (09:59)
[2019-05-14] MEDS: Potassium Chloride 20 MEQ TAB PO SCH ×2 (10:00→17:06)
--- NOTE | 2019-05-14 10:12 | PDOC.PALPN ---
Palliative Progress Note - Subjective Awake, alert, sitting in chair by window. Family present. Patient verbal, but confused and appears to have limited ability to grasp gravity of multiple morbidities. - Objective Vital Signs: Vital Signs - Most Recent Temp Pulse Resp BP Pulse Ox 97.8 F 73 16 121/78 99 05/14/19 07:38 05/14/19 07:38 05/14/19 07:38 05/14/19 07:38 05/14/19 07:38 - Physical Exam Constitutional: ill appearing HEENT: EOMI, scleral icterus Respiratory: no wheezing, unlabored breathing Cardiovascular: RRR Gastrointestinal: soft, non-tender Musculoskeletal: no clubbing Neurology: moves all 4 limbs, no focal deficits Skin: cap refill <2 seconds Psychiatric: A&O x 3, normal mood - Assessment (1) Acute and chronic respiratory failure with hypoxia Code(s): J96.21 - ACUTE AND CHRONIC RESPIRATORY FAILURE WITH HYPOXIA Current Visit: Yes Status: Acute (2) Sepsis Code(s): A41.9 - SEPSIS, UNSPECIFIED ORGANISM Current Visit: Yes Status: Resolved (3) JOSE A (acute kidney injury) Code(s): N17.9 - ACUTE KIDNEY FAILURE, UNSPECIFIED Current Visit: No Status : Acute (4) Acute exacerbation of CHF (congestive heart failure) Code(s): I50.9 - HEART FAILURE, UNSPECIFIED Current Visit: No Status: Acute Qualifiers: Heart failure type: systolic Qualified Code(s): I50.23 - Acute on chronic systolic (congestive) heart failure (5) GERD (gastroesophageal reflux disease) Code(s): K21.9 - GASTRO-ESOPHAGEAL REFLUX DISEASE WITHOUT ESOPHAGITIS Current Visit: No Status: Chronic Qualifiers: Esophagitis presence: without esophagitis Qualified Code(s): K21.9 - Gastro -esophageal reflux disease without esophagitis - Plan Plan: Family meeting with patient, his sister, neice, nephew and cousin. Discussed Heart failure, renal disease, episodes of Torsades do pointes, hepatic disease and disease trajectory. Patient and family confirm he has not always been compliant, and that for 3 weeks while on the [facility] program he has been taking his medications. Discussed goal, and that patient is weak and living independently may not be a consideration in the near future. Family concerned he is not a candidate for rehab. Goal Continue with PT (eval by rehab?) understanding he may not be a candidate [facility]ing [facility] for [facility] Discussed that a plan for discharge will need to be discussed by family due to patient not desiring to discharge to a retirement and they are in agreement. Continue with [facility] program after discharge from hospital setting Planted seed that Hospice may be a consideration in the future when he desires to have symptoms managed of multiple disease processes but not seek aggressive treatment. Answered familys questions and confirmed that Palliative Care is available in the future for additional support. Communicated with Dr Mcguire [[id number]] minutes spent on this encounter with >50% of the time in counseling and coordination of care. - ROS Constitutional: weakness ENT: other (negative for congestion) Respiratory: other (negative for cough, congestion.) Cardiology: other (denies chest pain, palpitaitons) Gastrointestinal: bloating, other (negative for constipation, nausea) Neurological: numbness (lower extremity)
--- NOTE | 2019-05-14 10:58 | PRG ---
DATE OF SERVICE: 05/14/2019 Mr. Aldrich remains in good spirits with mild episodes of confusion. We are still awaiting placement. We also appreciate the input from the Cardiology Service. No reports of further episodes of torsades. Job ID: [id number]
[2019-05-14] MEDS: Famotidine/PF 20 mg/2ml Vial SLOW IVP SCH (12:13)
[2019-05-14 12:59] VITALS: BMI 28.3
--- NOTE | 2019-05-14 18:39 | PDOC.CPN ---
- Subjective Date: 05/14/19 Time: 18:35 Interval history: Continues to do well. No angina. Breathing at baseline. Only issue is swelling on his right wrist which he feels like his gout is coming back. - Review of Systems General: denies: fever/chills, weight/appetite/sleep changes, night sweats, fatigue Respiratory: denies: cough, congestion, shortness of breath, exercise intolerance Cardiovascular: denies: chest pain, palpitation, edema, paroxysmal nocturnal dyspnea, orthopnea Gastrointestinal: denies: nausea, vomiting, diarrhea, constipation, abd pain, GI bleeding Musculoskeletal: reports: swelling, arthritis/arthralgias. denies: pain, tenderness, stiffness Neurological: denies: numbness, syncope, seizure, weakness - Objective Allergies/Adverse Reactions: Allergies Allergy/AdvReac Type Severity Reaction Status Date / Time iodine Allergy Mild Hives Verified 05/02/19 00:41 spironolactone Allergy Verified 05/02/19 00:41 Visit Medications: Current Medications Acetaminophen (Tylenol) 650 mg AR Q6H PRN PRN Reason: Fever > 101 or Mild Pain Acetaminophen (Tylenol) 650 mg PO Q6H PRN PRN Reason: Headache/Fever or Pain Last Admin: 05/12/19 10:27 Dose: 650 mg Hydrocodone Bitart/Acetaminophen ([place] 10/325) 1 tab PO Q4H PRN PRN Reason: Pain Last Admin: 05/14/19 09:55 Dose: 1 tab Albuterol/Ipratropium (Duoneb) 3 ml NEB QIDPRN PRN PRN Reason: Wheezing Last Admin: 05/06/19 10:44 Dose: 3 ml Apixaban (Eliquis) 5 mg PO BID [facility] Last Admin: 05/14/19 09:55 Dose: 5 mg Aspirin (Ecotrin) 81 mg PO DAILY [facility] Last Admin: 05/14/19 09:52 Dose: 81 mg Atorvastatin Calcium (Lipitor) 40 mg PO HS [facility] Last Admin: 05/13/19 20:53 Dose: 40 mg Bumetanide (Bumex) 1 mg PO DAILY [facility] Last Admin: 05/14/19 09:57 Dose: 1 mg Carvedilol (Coreg) 3.125 mg PO BID-[facility] Last Admin: 05/14/19 17:06 Dose: 3.125 mg Cyclobenzaprine HCl (Flexeril) 10 mg PO DAILY PRN PRN Reason: Muscle Pain Last Admin: 05/14/19 17:06 Dose: 10 mg Famotidine (Pepcid) 20 mg SLOW IVP DAILY [facility] Last Admin: 05/14/19 12:13 Dose: 20 mg Ferrous Sulfate (Feosol) 325 mg PO DAILY [facility] Last Admin: 05/14/19 09:58 Dose: 325 mg Losartan Potassium (Cozaar) 12.5 mg PO DAILY [facility] Last Admin: 05/14/19 09:52 Dose: 12.5 mg Magnesium Oxide (Magnesium Oxide) 200 mg PO DAILY [facility] Last Admin: 05/14/19 09:59 Dose: 200 mg Mineral Oil/White Petrolatum (Systane Nighttime Eye Ointment) 0 gm EA EYE PRN PRN PRN Reason: Dry Eyes Potassium Chloride (K-Dur) 40 meq PO BID-[facility] Last Admin: 05/14/19 17:06 Dose: 40 meq Sodium Chloride (Flush - Normal Saline) 10 ml IVF PRN PRN PRN Reason: Saline Flush Sterile Water (Water For Injection) 1.2 ml FS PRN PRN PRN Reason: RECONSTITUTION Vital Signs & Weight: Vital Signs Temp Pulse Pulse Resp BP BP BP 05/14/19 15:28 98.4 F 67 14 108/52 L 05/14/19 11:22 97.7 F 66 16 101/69 05/14/19 09:44 05/14/19 09:23 140/80 138/99 H 05/14/19 09:07 71 140/80 05/14/19 07:38 97.8 F 73 16 121/78 Pulse Ox 05/14/19 15:28 97 05/14/19 11:22 93 L 05/14/19 09:44 99 05/14/19 09:23 05/14/19 09:07 05/14/19 07:38 99 Admit Weight 181 lb 10.574 oz Weight 197 lb 12.8 oz - Physical Exam General: alert & oriented x3 HEENT: mucus membranes moist Neck: supple neck Cardiac: regular rate and rhythm Lungs: clear to auscultation Neuro: grossly intact Abdomen: active bowel sounds Extremities: no edema Skin: clear Musculoskeletal: pain in joint, fluid collection - Labs Result Diagrams: 05/12/19 07:15 05/14/19 04:27 - Telemetry Supraventricular conduction: atrial fibrillation - Assessment/Plan Assessment/Plan: 1. Influenza A 2. Pneumonia 3. Polymorphic VT arrest s/p ICD discharge 4. Severe non ischemic CM EF at 15-20% 5. Chronic afib 6. Chronically elevated troponins 7. Mild CAD on recent [facility]. 8. Altered mental status. 3 9. Katherine BARRY: - Mentation improved. - Continue other meds. - On Eliquis 5 mg BID for stroke prophylaxis. - Avoid any agent that may prolongue QTc. - Continue coreg at current dose. Re start Losartan once BP allows. - Will give colchicine for his swollen wrist.
[2019-05-14] MEDS ORDERED: Ibuprofen 800 MG TAB PO SCH (20:00)
[2019-05-14 21:12] LABS: Anion Gap 15 mmol/L (10-20); BUN (Urea Nitrogen) 38 mg/dL (8.4-25.7); Calc. Creatinine Clearance 65 mL/min (70-130); Calcium 9.3 mg/dL (7.8-10.44); Carbon Dioxide 25 mmol/L (22-29); Chloride 104 mmol/L (98-107); Estimated GFR-MDRD 55; Glucose 110 mg/dL (70-105); Magnesium 1.9 mg/dL (1.6-2.6); Potassium 4.2 mmol/L (3.5-5.1); Sodium 140 mmol/L (136-145)
[2019-05-14] MEDS: Atorvastatin Calcium 40 MG TAB PO SCH (21:59)
[2019-05-15] MEDS: Ibuprofen 800 MG TAB PO SCH ×2 (05:22→14:56)
[2019-05-15 05:30] LABS: ALT (SGPT) 20 U/L (8-55); AST (SGOT) 47 U/L (5-34); Albumin 2.7 g/dL (3.5-5.0); Alkaline Phosphatase 106 U/L (40-110); Anion Gap 15 mmol/L (10-20); BUN (Urea Nitrogen) 39 mg/dL (8.4-25.7); Bilirubin, Total 8.8 mg/dL (0.2-1.2); Calc. Creatinine Clearance 56 mL/min (70-130); Calcium 9.4 mg/dL (7.8-10.44); Carbon Dioxide 25 mmol/L (22-29); Chloride 103 mmol/L (98-107); Estimated GFR-MDRD 47; Globulin 4.5 g/dL (2.4-3.5); Glucose 79 mg/dL (70-105); Magnesium 1.8 mg/dL (1.6-2.6); Potassium 3.9 mmol/L (3.5-5.1); Protein, Total 7.2 g/dL (6.0-8.3); Sodium 139 mmol/L (136-145)
--- NOTE | 2019-05-15 06:26 | PDOC.FM ---
- Subjective Subjective: NAEO. Mentation still improving. Has no complaints. - Objective MAR Reviewed: Yes Vital Signs & Weight: Vital Signs (12 hours) Temp Pulse Resp BP BP Pulse Ox 05/15/19 03:53 98 F 65 16 105/79 95 05/14/19 23:42 97.9 F 70 16 112/79 95 05/14/19 20:25 97.6 F 74 22 H 89/63 L 96 05/14/19 20:00 94 L 05/14/19 19:43 97.7 F 74 16 94 L Weight Admit Weight 82.4 kg Weight 89.448 kg Most Recent Monitor Data Heart Rate from ECG 79 NIBP 125/76 NIBP BP-Mean 92 Respiration from ECG 18 SpO2 83 I&O: 05/13/19 05/14/19 05/15/19 06:59 06:59 06:59 Intake Total 1464 1220 Output Total 300 Balance 1464 920 Result Diagrams: 05/12/19 07:15 05/15/19 04:28 Phys Exam - Physical Examination Constitutional: NAD HEENT: moist MMs Neck: supple, full ROM Respiratory: no wheezing, no rales, no rhonchi, clear to auscultation bilateral Cardiovascular: RRR, no significant murmur Gastrointestinal: soft, non-tender, no distention Musculoskeletal: no edema Neurological: non-focal, moves all 4 limbs Psychiatric: A&O x 3 Skin: no rash, normal turgor Dx/Plan (1) Acute and chronic respiratory failure with hypoxia Code(s): J96.21 - ACUTE AND CHRONIC RESPIRATORY FAILURE WITH HYPOXIA Status: Acute (2) Influenza Code(s): J11.1 - FLU DUE TO UNIDENTIFIED INFLUENZA VIRUS W OTH RESP MANIFEST Status: Resolved (3) Acute exacerbation of CHF (congestive heart failure) Code(s): I50.9 - HEART FAILURE, UNSPECIFIED Status: Acute Qualifiers: Heart failure type: systolic Qualified Code(s): I50.23 - Acute on chronic systolic (congestive) heart failure (4) Acute kidney injury superimposed on CKD Code(s): N17.9 - ACUTE KIDNEY FAILURE, UNSPECIFIED; N18.9 - CHRONIC KIDNEY DISEASE, UNSPECIFIED Status: Acute (5) LIT (obstructive sleep apnea) Code(s): G47.33 - OBSTRUCTIVE SLEEP APNEA (ADULT) (PEDIATRIC) Status: Acute (6) Chronic systolic (congestive) heart failure Code(s): I50.22 - CHRONIC SYSTOLIC (CONGESTIVE) HEART FAILURE Status: Chronic (7) GERD (gastroesophageal reflux disease) Code(s): K21.9 - GASTRO-ESOPHAGEAL REFLUX DISEASE WITHOUT ESOPHAGITIS Status: Chronic Qualifiers: Esophagitis presence: without esophagitis Qualified Code(s): K21.9 - Gastro -esophageal reflux disease without esophagitis (8) Hyperbilirubinemia Code(s): E80.6 - OTHER DISORDERS OF BILIRUBIN METABOLISM Status: Chronic - Plan Plan: This is a 58 yo male with a pmh of COPD, HFrEF, CKD2, HTN Hospital Day 13 Code: Full DVT prophylaxis: eliquis GI prophylaxis: Pepcid Family: none at bedside Acute delirium 2/2 ICU status vs. anoxic brain injury vs. metabolic encephalopathy, improving -Ammonia level 45 on presentation & down to 29 yesterday AM. -Improvement in following some commands -Stopped Geodon due to QT prolongation & will continue Ativan prn. -Still has a poor overall assisted prognosis in setting of multiple comorbidities. Palliative care met w/ family Sunday to discuss plan/goals of care. Referral to [facility] for SNF care pending per CM. Aphagia, improving -Speech therapy on board & approved patient for nectar thick diet over weekend. Will continue to advance diet per their recs as tolerated by the patient. Torsades de pointes, reoccurred on 05/10 due to prolonged QT -Currently paced -magnesium goals above 2 -Continue potassium replacement with goals above 4 prolonged QT - Aware, baseline QT just over 800. Will avoid all prolonging agents & continue close tele monitoring. Grand mal seizure -No Hx of seizure disorder, EEG WNLs. Will load with keppra if seizures reoccur. Hypernatremia, resolved - Na down to 139 this AM. Will continue PO hydration & continue to trend. Macrocytic Anemia, likely 2/2 liver disease -Folate and B12 normal in the past -Will monitor Hyperbiliruminemia likely 2/2 hepatic congestion from HFrEF -Out pt GI consult Transaminitis -Secondary to hepatic congestion -Consider HIDA JOSE A on CKD stage 2, improving -Will continue PO hydration only, careful not to volume overload in setting of severe HFrEF. Holding diuretics today. COPD, not in acute exacerbation currently -Will continue to monitor respiratory status closely. PRN Duonebs. HFrEF -Aware, EF 15-20%. HH diet per ST recs & will continue strict I&Os & PO hydration w/ fluid restrictions. -Continue home meds but will hold diuretics today 2/2 slightly elevated Cr. Hypomagnesemia -Mg down to 1.8 this AM. Will replace w/ 2g IV & continue 200mg PO QD. Hypokalemia -K 3.9 this AM. Will give 40mEq PO BID today & continue to trend. Acute hypoxic respiratory failure 2/2 seizure vs. ventricular tachycardia, resolved -Respiratory support PRN -Dr. Jacobs, pulmonology, consulted appreciate recs Sepsis 2/2 possible influenza A vs CAP - Improved, patient has finished ABX course Lactic acidosis, resolved Dispo: Remains stable on stroke unit. D/c pending SNF placement. Addendum - Attending - Attending Attestation Date/Time: 05/15/19 2940 I personally evaluated the patient and discussed the management with Dr. Mcguire I agree with the History, Examination, Assessment and Plan documented above with any addition or exceptions noted below - Patient denies any complaints. Afebrile VSS. A/P: 1) S/P cardiac arrest secondary to torsades/v-fib - recovered ; avoid QT prolonging drugs. 2) Acute encephalopathy- resolving; mentation continuing to improve. 3) HFrEF- stable. 4) deconditioning- plan to transfer to SNF when accepted. Stable for discharge.
[2019-05-15] MEDS ORDERED: Magnesium 2 GM/50 ML 2 GM in Premix Bag 1 BAG IVPB SCH (06:30)
[2019-05-15] MEDS: Famotidine/PF 20 mg/2ml Vial SLOW IVP SCH (07:57)
[2019-05-15] MEDS: Ferrous Sulfate 325 MG TAB PO SCH (08:56)
[2019-05-15] MEDS: Apixaban 5 MG TAB PO SCH (08:57)
[2019-05-15] MEDS: Magnesium Oxide 400 MG TAB PO SCH (08:58)
[2019-05-15] MEDS: Losartan 25 MG TAB PO SCH (09:14)
[2019-05-15] MEDS: Aspirin 81 mg Enteric Coated Tablet PO SCH (09:14)
[2019-05-15] MEDS: Carvedilol 3.125 MG TAB PO SCH (09:14)
[2019-05-15] MEDS: Potassium Chloride 20 MEQ TAB PO SCH (09:15)
[2019-05-15 15:49] VITALS: BP 108/66; TEMP 97.2
--- NOTE | 2019-05-17 21:22 | EKG ---
Test Reason : Blood Pressure : / mmHG Vent. Rate : 080 BPM Atrial Rate : 080 BPM P-R Int : 000 ms QRS Dur : 182 ms QT Int : 472 ms P-R-T Axes : 000 066 -54 degrees QTc Int : 544 ms Electronic ventricular pacemaker Possible Junctional escape underlying Confirmed by SEFERINO SHEEHAN MD ([id number]), editor & co founder FESTUS DALTON ([id number]) on 05/17/2019 9:22:32 PM Referred By: Confirmed By:SEFERINO SHEEHAN MD
--- NOTE | 2019-05-17 21:26 | EKG ---
Test Reason : CHEST PAIN Blood Pressure : / mmHG Vent. Rate : 089 BPM Atrial Rate : 089 BPM P-R Int : 000 ms QRS Dur : 188 ms QT Int : 554 ms P-R-T Axes : 000 -31 073 degrees QTc Int : 674 ms Ventricular-paced rhythm with junctional escape beats Abnormal ECG Confirmed by AGUILA SMITH, SEFERINO ([id number]), publication editor FESTUS DALTON ([id number]) on 05/17/2019 9:26:03 PM Referred By: YANELI Confirmed By:SEFERINO SHEEHAN MD
== END 2019-05-15 16:44 | DRG 870 ==
LOC: ERS 13:50 → 2NO 17:46 → CCU 22:33 → IMCU/EMU 22:37 → CCU 22:38 → IMCU/EMU 05-07 15:46 → 2NO 05-08 11:45 → IMCU/EMU 05-09 18:18 → 2SE 05-13 16:37
PROVIDERS: ADMIT Family Medicine; ATTEND Family Medicine
PROC: 0BH18EZ Insertion of Endotracheal Airway into Trachea, Via Natural or Artificial Opening Endoscopic (ICD-10-PCS; 2019-05-01)
PROC: 5A1955Z Respiratory Ventilation, Greater than 96 Consecutive Hours (ICD-10-PCS; 2019-05-01)
PROC: 5A12012 Performance of Cardiac Output, Single, Manual (ICD-10-PCS; principal; 2019-05-02)
DX: A41.89 Other specified sepsis (principal); J96.21 Acute and chronic respiratory failure with hypoxia; I46.9 Cardiac arrest, cause unspecified; G93.41 Metabolic encephalopathy; R57.8 Other shock; I50.23 Acute on chronic systolic (congestive) heart failure; I49.01 Ventricular fibrillation; J10.08 Influenza due to other identified influenza virus with other specified pneumonia; I13.0 Hypertensive heart and chronic kidney disease with heart failure and stage 1 through stage 4 chronic kidney disease, or unspecified chronic kidney disease; I48.20 Chronic atrial fibrillation, unspecified; N17.9 Acute kidney failure, unspecified; D68.9 Coagulation defect, unspecified; E87.2 Acidosis; T82.897A Other specified complication of cardiac prosthetic devices, implants and grafts, initial encounter; I42.8 Other cardiomyopathies; B97.89 Other viral agents as the cause of diseases classified elsewhere; I25.10 Atherosclerotic heart disease of native coronary artery without angina pectoris; E80.6 Other disorders of bilirubin metabolism; N18.2 Chronic kidney disease, stage 2 (mild); D69.6 Thrombocytopenia, unspecified; D53.9 Nutritional anemia, unspecified; K21.9 Gastro-esophageal reflux disease without esophagitis; E78.5 Hyperlipidemia, unspecified; G47.33 Obstructive sleep apnea (adult) (pediatric); J44.9 Chronic obstructive pulmonary disease, unspecified; I45.81 Long QT syndrome; E83.42 Hypomagnesemia; M10.9 Gout, unspecified; M54.5 Low back pain; G89.29 Other chronic pain; K42.9 Umbilical hernia without obstruction or gangrene; K76.1 Chronic passive congestion of liver; R41.0 Disorientation, unspecified; J11.1 Influenza due to unidentified influenza virus with other respiratory manifestations; R13.0 Aphagia; Z91.041 Radiographic dye allergy status; Z88.8 Allergy status to other drugs, medicaments and biological substances; Z79.82 Long term (current) use of aspirin; Z79.899 Other long term (current) drug therapy; Z86.73 Personal history of transient ischemic attack (TIA), and cerebral infarction without residual deficits; Z95.0 Presence of cardiac pacemaker; Z87.891 Personal history of nicotine dependence; G40.409 Other generalized epilepsy and epileptic syndromes, not intractable, without status epilepticus
CPT/HCPCS: 36415; 36416; 70450; 71045; 74018; 74176; 76705; 80053; 80202; 80306; 81003; 81015; 82140; 82247; 82805; 83605; 83735; 84100; 84145; 85025; 85610; 85730; 86140; 86705; 86706; 86710; 86803; 87040; 87086; 87340; 87633; 87804; 92950; 93005; 93010; 94002; 94003; 94640; 96361; 96365; 96366; 96367; 96375; J0692; J1940; J2060; J2270; J2704; J3370; J3475; J3480; J3486; J3490; J7050; J7620; S0028

== ENCOUNTER 2019-05-23 10:59 | Inpatient (IN) | payer MEDICARE, MEDICAID ==
[2019-05-23 11:53] LABS: #Basophils 0.1 thou/uL (0.0-0.2); #Eosinphils 0.1 thou/uL (0.0-0.7); #Lymphocytes 2.6 thou/uL (1.20-3.40); #Monocytes 1.6 thou/uL (0.11-0.59); #Neutrophils 6.5 thou/uL (1.40-6.50); %Eosinophils 1.3 % (0.0-10.0); %Lymphocytes 23.9 % (21.0-51.0); %Monocytes 14.4 % (0.0-10.0); %Neutrophils 59.4 % (42.0-75.0); Hemoglobin 11.8 g/dL (14.0-18.0); Mean Corpuscular HGB CONC 31.9 g/dL (32.0-36.0); Mean Corpuscular Hemoglobin 34.3 pg (27.0-31.0); Mean Platelet Volume 9.6 fL (7.4-10.4); Platelet Count 132 thou/uL (130-400); RBC Distribution Width 16.5 % (11.5-14.5); Red Blood Cell (RBC) Count 3.45 mill/uL (4.70-6.10)
[2019-05-23 12:24] LABS: ALT (SGPT) 16 U/L (8-55); AST (SGOT) 37 U/L (5-34); Albumin 3.3 g/dL (3.5-5.0); Alkaline Phosphatase 151 U/L (40-110); Anion Gap 17 mmol/L (10-20); BUN (Urea Nitrogen) 31 mg/dL (8.4-25.7); Bilirubin, Total 7.7 mg/dL (0.2-1.2); Calc. Creatinine Clearance 0 mL/min (70-130); Calcium 9.6 mg/dL (7.8-10.44); Carbon Dioxide 22 mmol/L (22-29); Chloride 100 mmol/L (98-107); Estimated GFR-MDRD 64; Globulin 4.7 g/dL (2.4-3.5); Glucose 73 mg/dL (70-105); Potassium 4.6 mmol/L (3.5-5.1); Sodium 134 mmol/L (136-145)
[2019-05-23] MEDS ORDERED: Heparin 1,000 UNITS/ML VIAL ONE ×2 (12:40→12:42)
--- NOTE | 2019-05-23 12:45 | RAD ---
SINGLE VIEW OF THE CHEST: COMPARISON: 05/09/2019. HISTORY: Shortness of breath. FINDINGS: A single view of the chest shows an enlarged but stable cardiomediastinal silhouette. The pacemaker is unchanged in position. There is no evidence of consolidation, mass, or pleural effusion. IMPRESSION: Stable cardiomegaly. POS: [facility]
[2019-05-23] MEDS ORDERED: Carvedilol 6.25 MG TAB PO SCH ×2 (14:00→21:00)
[2019-05-23] MEDS ORDERED: Furosemide 100 MG/10 ML VIAL SLOW IVP SCH ×2 (14:15→19:00)
[2019-05-23] MEDS ORDERED: Calcium Carbonate 500 MG ChewTAB PO PRN (17:32)
[2019-05-23] MEDS ORDERED: Sucralfate 1 GM TAB PO PRN (17:44)
[2019-05-23] MEDS ORDERED: Cyclobenzaprine 10 MG TAB PO PRN (17:44)
[2019-05-23] MEDS ORDERED: Zolpidem Tartrate 5 MG TAB PO PRN (17:44)
--- NOTE | 2019-05-23 17:46 | PDOC.FPRHP ---
- History of Present Illness Chief Complaint: SOB History of Present Illness: Patient is 58M with PMHx of severe HFrEF s/p AICD placement, HTN, CAD, h/o TIA, CKD 3, chronic afib s/p pacemaker placement, COPD, HLD, GERD, and chronic macrocytic anemia that was recently discharged from the hospital to rehab after a prolonged stay for sepsis 2/2 RLL PNA, acute hypoxic respiratory failure due to seizure with subsequent acute metabolic encephalopathy due to suspected anoxic brain injury. He presents to the ED with SOB. Per Dr. Aguilar, patient presented to the HF clinic today with severe SOB. He was found to have the atrial lead in his pacemaker not working as well as his bi- ventricular device not working. Dr. Liz was consulted but is not available this weekend. Dr. Liz consulted on the patient in the ED and started him on coreg and a milrinone drip with a plan to possibly transfer him to [facility] at a later date. Patient is a very poor historian. Patient reports he has SOB that started yesterday and worsened today. He also notes BLE edema and abdominal edema. Denies fever, n/v/d, difficulty urinating. PCP-[facility] ED Course: 60mg IV furosemide, 6.25mg carvedilol, 0.125mcg/kg/min milrinone drip - Allergies/Adverse Reactions Allergies Allergy/AdvReac Type Severity Reaction Status Date / Time iodine Allergy Mild Hives Verified 05/23/19 18:30 spironolactone Allergy Verified 05/23/19 18:30 - Home Medications Medication Instructions Recorded Confirmed Type Aspirin [Ecotrin Low Strength] 81 mg PO DAILY #0 tab 04/21/13 05/23/19 Rx Zolpidem Tartrate [Ambien] 10 mg PO HS PRN 08/20/18 05/23/19 History Carvedilol [Coreg] 3.125 mg PO BID #60 tab 11/05/18 05/02/19 Rx Cyclobenzaprine [Flexeril] 10 mg PO DAILY PRN 12/28/18 05/23/19 History Dexlansoprazole [Dexilant] 60 mg PO DAILY 12/28/18 05/23/19 History HYDROcodone/Acetaminophen 1 - 2 tab PO Q4H PRN 12/28/18 05/23/19 History [Hydrocodone-Acetamin 10-325 mg] Iron,Carbonyl [Feosol] 325 mg PO DAILY 12/28/18 05/23/19 History Magnesium 200 mg PO DAILY 12/28/18 05/23/19 History Probenecid/Colchicine 1 tab PO BID 12/28/18 05/23/19 History [Probenecid-Colchicine Tablet] Atorvastatin Calcium 40 mg PO HS 03/19/19 05/23/19 History Bumetanide 1 mg PO DAILY 03/19/19 05/23/19 History Apixaban [Eliquis] 5 mg PO BID 03/24/19 05/23/19 History Ipratropium/Albuterol Sulfate 3 ml NEB QID PRN #30 neb 03/24/19 05/23/19 Rx [DuoNeb] Sucralfate 1 gm PO PRN PRN 03/30/19 05/23/19 History Losartan [Cozaar] 12.5 mg PO DAILY #30 tab 04/01/19 05/23/19 Rx Acetaminophen [Tylenol Regular 650 mg PO Q6H PRN tab 05/14/19 05/23/19 Rx Strength] Potassium Chloride [K-Dur] 20 meq PO DAILY #90 tab 05/15/19 05/23/19 Rx - History PMHx: HTN, CAD, h/o TIA, CKD 3, chronic afib s/p pacemaker placement, COPD, HLD , GERD, and chronic macrocytic anemia PSHx: pacemaker insertion with multiple revisions FHx: HTN, CAD, [place] Social: Quit smoking and drinking etoh 1-2 months ago. Denies drug use. Hx of methamphetamine use. - Review of Systems General: denies: fever/chills, weight/appetite/sleep changes Eyes: denies: eye pain, vision changes ENT: denies: nasal congestion, rhinorrhea Respiratory: reports: shortness of breath. denies: cough Cardiovascular: reports: edema. denies: chest pain Gastrointestinal: denies: nausea, vomiting, diarrhea Genitourinary: denies: incontinence, dysuria Skin: denies: lesions, jaundice Musculoskeletal: reports: swelling. denies: tenderness, stiffness Neurological: denies: syncope, seizure Psychological: denies: anxiety, depression - Vital signs BP: [127/87] HR: [83] RR: [19] Tmax: [98.7F] Pox: [92]% on [RA] Wt: [85.87kg] - Physical Exam Constitutional: well developed, other (acutely anxious, appeared somewhat disoriented) HEENT: normocephalic and atraumatic, MMM, other (scleral icterus bilaterally) Neck: supple, FROM Chest: no-tender to palpation, no lesions Heart: RRR, other (gallop present) Lungs: no rales/rhonchi, no wheezing Abdomen: other (distended, ttp RUQ and LUQ) Musculoskeletal: normal structure, ROM grossly normal Neurological: no focal deficit, normal sensation Skin: no rash/lesions, good turgor Heme/Lymphatic: no unusual bruising or bleeding, no purpura Psychiatric: normal mood and affect, other (poor judgement and insight, poor memory) FMR H&P: Results - Labs Result Diagrams: 05/23/19 11:41 05/23/19 11:41 Lab results: WBC 11.0 thou/uL (4.8-10.8) H 05/23/19 11:41 Hgb 11.8 g/dL (14.0-18.0) L 05/23/19 11:41 Hct 37.1 % (42.0-52.0) L 05/23/19 11:41 MCV 108.0 fL (78.0-98.0) H 05/23/19 11:41 Plt Count 132 thou/uL (130-400) 05/23/19 11:41 Neutrophils % 59.4 % (42.0-75.0) 05/23/19 11:41 Sodium 134 mmol/L (136-145) L 05/23/19 11:41 Potassium 4.6 mmol/L (3.5-5.1) 05/23/19 11:41 Chloride 100 mmol/L (98-107) 05/23/19 11:41 Carbon Dioxide 22 mmol/L (22-29) 05/23/19 11:41 BUN 31 mg/dL (8.4-25.7) H 05/23/19 11:41 Creatinine 1.37 mg/dL (0.7-1.3) H 05/23/19 11:41 Glucose 73 mg/dL (70-105) 05/23/19 11:41 Calcium 9.6 mg/dL (7.8-10.44) 05/23/19 11:41 Total Bilirubin 7.7 mg/dL (0.2-1.2) H 05/23/19 11:41 AST 37 U/L (5-34) H 05/23/19 11:41 ALT 16 U/L (8-55) 05/23/19 11:41 Alkaline Phosphatase 151 U/L (40-110) H 05/23/19 11:41 CK-MB (CK-2) 2.0 ng/mL (0-6.6) 05/23/19 11:41 B-Natriuretic Peptide 2008.0 pg/mL (0-100) H 05/23/19 11:41 Serum Total Protein 8.0 g/dL (6.0-8.3) 05/23/19 11:41 Albumin 3.3 g/dL (3.5-5.0) L 05/23/19 11:41 Lipase 35 U/L (8-78) 05/23/19 11:41 - EKG Interpretation EKG: Paced rhythm, no ST elevation or depression - Radiology Interpretation Chest x-ray Status: report reviewed by me (stable cardiomegaly) FMR H&P: A/P - Problem List (1) Pacemaker complications Current Visit: Yes Status: Acute Code(s): T82.9XXA - UNSP COMP OF CARDIAC AND VASCULAR PROSTH DEV/GRFT, INIT (2) Acute and chronic respiratory failure with hypoxia Current Visit: No Status: Acute Code(s): J96.21 - ACUTE AND CHRONIC RESPIRATORY FAILURE WITH HYPOXIA (3) Acute exacerbation of CHF (congestive heart failure) Current Visit: No Status: Acute Code(s): I50.9 - HEART FAILURE, UNSPECIFIED Qualifiers: Heart failure type: systolic Qualified Code(s): I50.23 - Acute on chronic systolic (congestive) heart failure (4) LIT (obstructive sleep apnea) Current Visit: No Status: Chronic Code(s): G47.33 - OBSTRUCTIVE SLEEP APNEA (ADULT) (PEDIATRIC) (5) Elevated troponin Current Visit: No Status: Chronic Code(s): R74.8 - ABNORMAL LEVELS OF OTHER SERUM ENZYMES (6) GERD (gastroesophageal reflux disease) Current Visit: No Status: Chronic Code(s): K21.9 - GASTRO-ESOPHAGEAL REFLUX DISEASE WITHOUT ESOPHAGITIS Qualifiers: Esophagitis presence: without esophagitis Qualified Code(s): K21.9 - Gastro -esophageal reflux disease without esophagitis (7) Gout Current Visit: No Status: Chronic Code(s): M10.9 - GOUT, UNSPECIFIED (8) HLD (hyperlipidemia) Current Visit: No Status: Chronic Code(s): E78.5 - HYPERLIPIDEMIA, UNSPECIFIED (9) Hyperbilirubinemia Current Visit: No Status: Chronic Code(s): E80.6 - OTHER DISORDERS OF BILIRUBIN METABOLISM (10) Hypertension Current Visit: No Status: Chronic Priority: Medium Code(s): I10 - ESSENTIAL (PRIMARY) HYPERTENSION Qualifiers: Hypertension type: essential hypertension Qualified Code(s): I10 - Essential (primary) hypertension (11) Macrocytic anemia Current Visit: No Status: Chronic Code(s): D53.9 - NUTRITIONAL ANEMIA, UNSPECIFIED - Plan Patient is a 58M with PMHx of HTN, CAD, h/o TIA, CKD 3, chronic afib s/p pacemaker placement, COPD, HLD, GERD, and chronic macrocytic anemia admitted for acute on chronic hypoxic respiratory failure due to acute exacerbation of chronic systolic CHF due to pacemaker malfunction. #Pacemaker Malfunction #Acute exacerbation of chronic systolic CHF -pacemaker interpretation demonstrated malfunction of the atrial lead and the bi -ventricular device -likely causing an acute exacerbation of his systolic CHF -BNP 2007 -Dr. Liz unavailable this weekend -Dr. Aguilar started milrinone drip and carvedilol; appreciate further recommendations -will consider transfer to [facility] I/O -daily weights -s/p lasix in ED; will hold off on further diuresis at this time to preserve pre -load #Acute on chronic hypoxic respiratory failure #COPD -likely due to acute exacerbation of chronic systolic CHF -required 2L O2 in the ED at one point during admission -s/p lasix in ED -oxygen support prn -continue home COPD meds #Elevated troponins -looking through his hx, he has chronically elevated troponins likely due to his severe HFrEF -patient denies chest pain at this time -no ST elevation on EKG #Chronic afib s/p pacemaker placement -paced rhythm on EKG in ED -continue home eliquis #HLD -continue home meds #GERD -continue home meds #Chronic macrocytic anemia #CKD -likely 2/2 hx of CKD -will continue to monitor -will avoid renally toxic drugs #HTN -will hold home losartan at this time -started on carvedilol and milrinone drip by Dr. Aguilar, continue -will continue to monitor #Gout -continue home meds Diet: HH DVTppx: home eliquis Dispo: inpatient for acute hypoxic respiratory failure 2/2 acute exacerbation of systolic CHF 2/2 pacemaker disfunction; Dr. Aguilar consulted, appreciate recs; will continue milrinone drip and carvedilol at this time and consider transfer to [facility] FM H&P: Upper Level - Plan Date/Time: 05/23/19 [id number] I, Olman Wade, DO, have evaluated this patient and agree with findings/ plan as outlined by manager internet resident. Pertinent changes/additions are listed here. 58 yo M with severe HFrEF presents with acute worsening of HF and found to have dysfunctional pacer lead as well as dysfunction of his biventricular device. Dr Aguilar consulted from ED and plan for admission on milrinone drip to attempt stabilization and transfer to higher level of care/possible LVAD placement. I was present for the exam h/p and discussed in detail pertinent findings and plan with Dr Oconnor and agree with the above documentation. Overall prognosis is poor. Will admit to IMCU, cont milrinone and continue appropriate medications. COnsider diuresis tomorrow after milrinone infusion as tolerated. Addendum - Attending - Attending Attestation Date/Time: 05/23/191931 I personally evaluated the patient and discussed the management with Dr. Oconnor/ Sheri. I agree with the History, Examination, Assessment and Plan documented above with any addition or exceptions noted below. Patient is a 58-year-old male with history of heart failure with reduced ejection fraction, status post AICD placement, atrial fibrillation, chronic kidney disease, and recent hospitalization for CHF with in-hospital cardiac arrest status post ROSC who presents for increased shortness of breath and heart failure decompensation. Patient was apparently seen at heart failure clinic today with evidence of decompensating heart failure and was sent to the emergency department. The heart failure specialist discussed with the patient the need for urgent transfer for possible LVAD placement but the patient declined. He was feeling weak, short of breath, and was noted to be hypoxic in the ER. Patient diagnosed with cardiogenic shock and was placed on milrinone drip. Per the heart failure specialist, pacemaker interrogation was performed which showed malfunction of the device and the patient to be in biventricular failure. The patient will need definitive therapy with a heart transplant though his social situation may preclude that. Currently the patient is on a milrinone drip and is feeling improved. Oxygen saturations fluctuate between the mid-80s and low 90%. Blood pressure with systolic blood pressure 115 at the time of my evaluation. Patient will be admitted to the IMCU for continued milrinone and diuresis so long as his blood pressure tolerates. Dr. Aguilar has been consulted and will follow along with the patient and hopefully we can convince him to transfer for LVAD therapy. Patient is aware of the seriousness of his condition as he remembers the events of a few weeks ago with his arrest due to poor cardiac function. Further management pending clinical course. Continue other home medications for chronic conditions.
[2019-05-23] MEDS ORDERED: Magnesium 2 GM/50 ML 2 GM in Premix Bag 1 BAG IVPB SCH (19:45)
[2019-05-23] MEDS: Atorvastatin Calcium 40 MG TAB PO SCH (20:40)
[2019-05-23] MEDS: Apixaban 5 MG TAB PO SCH (20:40)
[2019-05-23 20:46] LABS: Anion Gap 13 mmol/L (10-20); BUN (Urea Nitrogen) 29 mg/dL (8.4-25.7); Calc. Creatinine Clearance 71 mL/min (70-130); Calcium 9.4 mg/dL (7.8-10.44); Carbon Dioxide 24 mmol/L (22-29); Chloride 100 mmol/L (98-107); Estimated GFR-MDRD 61; Glucose 110 mg/dL (70-105); Magnesium 1.5 mg/dL (1.6-2.6); Potassium 3.8 mmol/L (3.5-5.1); Sodium 133 mmol/L (136-145)
[2019-05-23] MEDS ORDERED: Potassium Phosphate 15 MMOL in Sodium Chloride 0.9% 250 ML 250 ML IV PRN (22:20)
[2019-05-23] MEDS ORDERED: Potassium Chloride 40 MEQ in Sodium Chloride 0.9% 250 ML 250 ML IVPB PRN (22:20)
[2019-05-23] MEDS ORDERED: CCU ELECTROLYTE REPLACEMENT PROTOCOL FS PRN (22:20)
[2019-05-23] MEDS ORDERED: Potassium Phosphate 12 MMOL in Sodium Chloride 0.9% 250 ML 250 ML IV PRN (22:20)
[2019-05-23] MEDS ORDERED: Magnesium 2 GM/50 ML 2 GM in Premix Bag 1 BAG IVPB PRN (22:20)
[2019-05-23] MEDS ORDERED: Potassium Chloride 40 MEQ in Premix Bag 1 BAG IVPB PRN (22:20)
[2019-05-23] MEDS ORDERED: Magnesium Oxide 400 MG TAB PO PRN ×2 (22:20)
[2019-05-23] MEDS ORDERED: Potassium Phosphate 9 MMOL in Sodium Chloride 0.9% 100 ML IVPB PRN (22:20)
[2019-05-23] MEDS ORDERED: PHOS-NAK 1 PKT PACK PO PRN ×2 (22:20)
[2019-05-23] MEDS ORDERED: Potassium Chloride 20 MEQ TAB PO PRN (22:20)
--- NOTE | 2019-05-23 22:33 | CON ---
DATE OF CONSULTATION: 05/23/2019 REASON FOR CONSULTATION: Management of acute on chronic heart failure. HISTORY OF PRESENT ILLNESS: Mr. Mónica Aldrich, a 58-year-old gentleman with heart failure with reduced ejection fraction, EF about 20% and right ventricular failure, presented to clinic without appointment, asking for help, saying that he is feeling very bad. He was quite ashened on that time, can barely walk. His pulse was difficult to find. The blood pressure was difficult to measure. He was known to have a CRTD device. We quickly interrogated his CRTD device. We found that he has ineffective biventricular pacing due to transmitted rates and also PVCs. We increased the basal rates from 60 to 75 beats per minute and also eliminated right ventricular to left ventricular pacing delays. He quickly felt better. He had more energy. Now, he has a pulse and his systolic blood pressure went up to 110. The interrogation showed multiple episodes of ventricular tachycardia, and he also had a ventricular fibrillation in April. He was shocked out of ventricular fibrillation. The device also showed that he has large fluid accumulation. Due to known nonischemic cardiomyopathy that is long-standing and dilated left ventricle and reduced ejection fraction, we made a call to [facility]. [facility] agreed to accept the patient. However, moments before to transport, the patient refused to go. He wanted few days to think about the process of advanced heart failure therapy. After discussion, I compromised that he will be admitted to [facility] and be stabilized. This would give him time to think. Mr. Aldrich says the heart failure began in 2010. He presented with shortness of breath, weakness, and fatigue. He was treated. He said that they did not find any coronary artery disease. He was able to work until 2016, as a recycling cdl dedicated truck driver. He was treated medically. He seemed to survive okay. As late as spring, he was able to walk about a block. He then began a period of decline starting in summer 2018. In November 2018, he experienced increased edema in his abdomen and then lower extremities. Medication adjustment was able to improve his situation in February. However, it worsened again in March 2019. He was reported to have the influenza. He had fever and chills. It was reported that he has sepsis, and he was admitted. He also coded during the stay. He was resuscitated and brought back. He was assessed for anoxic brain injury. Eventually, he was discharged to rehabilitation. He went to rehabilitation on May 15, 2019. Mr. Aldrich said that he did not improve at rehabilitation. He says he continued to be fatigued. He continued to be short of breath. He also thought that he was not receiving his medication, especially diuretics. He noticed that his abdominal girth is increasing. He also noticed that lower extremity edema is redeveloping. He said he was sent home with blister packs. Consequently, he did not know what was in the blister packs. He said that he had difficulty sleeping. He needs to sleep with head up at least 60 degrees. After falling asleep for 2 hours, he will wake up and unable to go back to sleep again. He is generally feeling very fatigued and poorly. He felt so bad today that he decided to come into the Heart Failure Clinic unannounced. The nurse practitioner, Flory Adler, saw the patient. Nurse practitioner, Vitor, found the patient to be in very poor state and sought my help immediately. You can see the rest of progression on the first paragraph. PAST MEDICAL HISTORY: Includes, 1. Heart failure with reduced ejection fraction with combined systolic and diastolic dysfunction. 2. He was reported to have nonischemic cardiomyopathy. 3. Hypertension. 4. Hyperlipidemia. 5. COPD. 6. History of alcohol abuse. 7. History of drug abuse. 8. Chronic macrocytic anemia. SOCIAL HISTORY: He said he smoked for over 40 years. However, he said he stopped in April 2019. Alcohol use; he said he started drinking heavily about six years ago. This included 8 beers plus hard liquor each day. Eventually, he thus went to drink three large beers per day. Lately, he said he stopped drinking alcohol altogether. The duration of large amount of alcohol use was approximately six years. Illicit drug use; the patient admitted that he used cocaine at different forms in the past, but stopped about 2010. FAMILY HISTORY: His father of cancer at age 76. His mother of cancer at age 55. A sister had heart failure, but of a cancer in her 50s. He has another sister, who of cancer in the age 50s. ALLERGIES: IODINE AND SPIRONOLACTONE. CURRENT CARDIAC MEDICATIONS: Include, 1. Apixaban 5 mg b.i.d. 2. Carvedilol 6.25 mg q.12 hours. 3. Milrinone at 0.25 mcg/kg/minute IVGTT. 4. Atorvastatin 40 mg p.o. at bedtime. REVIEW OF SYSTEMS: GENERAL: Very fatigued and weight gain, but no fever, chills, or productive cough. He does have dry cough. HEENT: There is no change in vision, hearing, or swallowing. PULMONARY: He has severe shortness of breath. Minimum activity will cause shortness of breath. CARDIOVASCULAR: He is unable to walk more than 25 feet. Please also see HPI. GI: He has decreased appetite and early satiety. : He is able to urinate well. MUSCULOSKELETAL: He has some complaints of right upper leg muscular spasms. INTEGUMENT: There is no new skin breakdown. No rashes. NEUROLOGIC: There are no focal deficits or focal weaknesses. PSYCHIATRIC: The patient appears to be anxious, but he also showed reduced insight to his situation. PHYSICAL EXAMINATION: VITAL SIGNS: In the ER, his heart rate paced at 75 and blood pressure 118/92. GENERAL: He is fatigued, but will speak. HEENT: Show EOMI. PERRL. However, he has very jaundiced eyes. Otherwise, he has severe scleral icterus. Oropharynx is benign with moist mucosa. There is no erythema nor exudate. NECK: His JVP is at least 15 cm. It is right at the earlobe. PULMONARY: He has coarse breath sounds with every breath and there are some crackles, more prominent in the right base. HEART: When paced, it is regular rate and rhythm. He has loud S3 gallop. He also has 2/6 holosystolic murmur at the apex with radiation to the left axilla. He also has 2/6 holosystolic murmur at the left upper sternal border. So consequently, he has mitral regurgitation and also tricuspid regurgitation. ABDOMEN: Distended. It is firm, but nontender with positive bowel sounds. EXTREMITIES: His lower extremity has 3+ edema from his feet toward his knees. IMAGING DATA: His echocardiogram from March 06, 2019, was reviewed. It showed LVIDd of 7.3 cm. His left ventricular ejection fraction is 30%. He has moderate mitral regurgitation. He has severely dilated right ventricle with moderately depressed RV function. He also has severe tricuspid regurgitation. LABORATORY VALUES: Sodium 134, potassium 4.6, BUN 31, and creatinine 1.37. Total bilirubin at 7.7, this is very elevated. Troponin I is 0.118, it showed severe cardiac dysfunction. His BNP is elevated at 2008. Once the patient was admitted and arrived on the floor of D1 at [facility], this patient developed frequent PVCs and bigeminy. Because of that, he has lower perfusion. He became fatigued and not feeling well. His CRTD was again interrogated and reprogrammed. His basal rate was increased to 85 to suppress the PVCs. Rate adjustment to prevent uncontrolled PVCs to occur was also programmed in. Under further clarification, it showed that the patient has a pin for the right atrial lead position, so the patient does not have a right atrial lead ever implanted. DISCUSSION: Much discussion took place prior to admission to the [facility]. The patient wanted to go home. He almost went home against medical advice. After explanation of severity of his situation, he understood better. The compromise was that he will be admitted to [facility] and be stabilized, and they will give him time to think about his long-term treatment. ASSESSMENT: A 58-year-old gentleman, has [place] Heart Association likely stage D and also [place] heart Association IIIB heart failure with reduced ejection fraction. It is combined systolic and diastolic dysfunction heart failure. He is under heart failure exacerbation again. He also has right ventricular failure. He has underlying chronic atrial fibrillation. This is the most likely reason why he has a pin instead of a right atrial lead. He also has ventricular tachycardia in the past. He also has severe liver dysfunction. This is due to right ventricular failure with the blood backing up into the biliary tract. That is the reason why he has high total bilirubin. This cannot be improved until his cardiac output is improved and also he is diuresed and he is also in the volume overloaded state. This is evidenced by severely elevated JVP, some pulmonary rales, and very distended abdomen. He has very little insight of what could be done that can help him. However, he needs to be given a chance to do the best if possible. Please see the following for recommendations; 1. Increase Milrinone to 0.375 mcg/kg/minute IVGTT. 2. Lasix 60 mg IV one dose and to monitor response. Based on the response, we will adjust the diuretics accordingly. 3. Replace carvedilol with Toprol-XL 25 mg q.12 hours. This will need to be titrated up. The aim of using Toprol-XL is for better AV geni block and better PVC prevention without using amiodarone. [address]. [address] PICC. The patient has a very difficult access. He will also need this for long-term milrinone infusion. 5. Please follow CBC, BMP, magnesium, and BNP daily. This will guide our treatment. 6. Based on his hemodynamic stability, we will adjust his heart failure medications in the following days. It has been a pleasure taking care of Mr. Aldrich. If you have any questions, please feel free to give me a call. Job ID: [id number]
[2019-05-24 03:57] LABS: #Basophils 0.1 thou/uL (0.0-0.2); #Eosinphils 0.2 thou/uL (0.0-0.7); #Lymphocytes 1.9 thou/uL (1.20-3.40); #Monocytes 1.3 thou/uL (0.11-0.59); #Neutrophils 6.6 thou/uL (1.40-6.50); %Eosinophils 1.8 % (0.0-10.0); %Lymphocytes 18.8 % (21.0-51.0); %Monocytes 12.5 % (0.0-10.0); %Neutrophils 65.8 % (42.0-75.0); Hemoglobin 9.9 g/dL (14.0-18.0); Mean Corpuscular HGB CONC 32.1 g/dL (32.0-36.0); Mean Corpuscular Hemoglobin 34.2 pg (27.0-31.0); Mean Platelet Volume 8.9 fL (7.4-10.4); Platelet Count 123 thou/uL (130-400); RBC Distribution Width 16.4 % (11.5-14.5); Red Blood Cell (RBC) Count 2.89 mill/uL (4.70-6.10)
[2019-05-24] MEDS: Acetaminophen 325 MG TAB PO PRN (04:07)
[2019-05-24 04:12] LABS: ALT (SGPT) 15 U/L (8-55); AST (SGOT) 33 U/L (5-34); Albumin 2.8 g/dL (3.5-5.0); Alkaline Phosphatase 129 U/L (40-110); Anion Gap 14 mmol/L (10-20); BUN (Urea Nitrogen) 28 mg/dL (8.4-25.7); Bilirubin, Total 5.8 mg/dL (0.2-1.2); Calc. Creatinine Clearance 77 mL/min (70-130); Calcium 9.1 mg/dL (7.8-10.44); Carbon Dioxide 24 mmol/L (22-29); Chloride 100 mmol/L (98-107); Estimated GFR-MDRD 68; Globulin 4.4 g/dL (2.4-3.5); Glucose 108 mg/dL (70-105); Magnesium 1.4 mg/dL (1.6-2.6); Potassium 3.7 mmol/L (3.5-5.1); Protein, Total 7.2 g/dL (6.0-8.3); Sodium 134 mmol/L (136-145)
--- NOTE | 2019-05-24 05:52 | PDOC.FM ---
- Subjective Subjective: Patient doing much better this morning. Reports his breathing is greatly improved. Discussed plan of care of likely milrinone drip until we can hoepfully revise his pacemaker, patient agreeable. - Objective Vital Signs & Weight: Vital Signs (12 hours) Temp Pulse Ox 05/24/19 04:35 98.0 F 05/24/19 00:00 98.0 F 05/23/19 20:00 96 05/23/19 19:30 97.8 F Weight Weight 90 kg Most Recent Monitor Data Heart Rate from ECG 87 NIBP 133/79 NIBP BP-Mean 97 Respiration from ECG 12 SpO2 97 I&O: 05/22/19 05/23/19 05/24/19 06:59 06:59 06:59 Intake Total 720 Output Total 1150 Balance -430 Result Diagrams: 05/24/19 03:35 05/24/19 03:35 Phys Exam - Physical Examination Constitutional: NAD HEENT: moist MMs bilateral scleral icterus Neck: supple, full ROM Respiratory: no wheezing, no rhonchi Cardiovascular: RRR, no significant murmur Gastrointestinal: soft, non-tender some distention, non-tender with palpation improved from admission Musculoskeletal: pulses present trace BLE edema Neurological: non-focal, moves all 4 limbs Psychiatric: normal affect, A&O x 3 Skin: no rash, normal turgor Dx/Plan (1) Pacemaker complications Code(s): T82.9XXA - UNSP COMP OF CARDIAC AND VASCULAR PROSTH DEV/GRFT, INIT Status: Acute (2) Acute and chronic respiratory failure with hypoxia Code(s): J96.21 - ACUTE AND CHRONIC RESPIRATORY FAILURE WITH HYPOXIA Status: Acute (3) Acute exacerbation of CHF (congestive heart failure) Code(s): I50.9 - HEART FAILURE, UNSPECIFIED Status: Acute Qualifiers: Heart failure type: systolic Qualified Code(s): I50.23 - Acute on chronic systolic (congestive) heart failure (4) LIT (obstructive sleep apnea) Code(s): G47.33 - OBSTRUCTIVE SLEEP APNEA (ADULT) (PEDIATRIC) Status: Chronic (5) Elevated troponin Code(s): R74.8 - ABNORMAL LEVELS OF OTHER SERUM ENZYMES Status: Chronic (6) GERD (gastroesophageal reflux disease) Code(s): K21.9 - GASTRO-ESOPHAGEAL REFLUX DISEASE WITHOUT ESOPHAGITIS Status: Chronic Qualifiers: Esophagitis presence: without esophagitis Qualified Code(s): K21.9 - Gastro -esophageal reflux disease without esophagitis (7) Gout Code(s): M10.9 - GOUT, UNSPECIFIED Status: Chronic (8) HLD (hyperlipidemia) Code(s): E78.5 - HYPERLIPIDEMIA, UNSPECIFIED Status: Chronic (9) Hyperbilirubinemia Code(s): E80.6 - OTHER DISORDERS OF BILIRUBIN METABOLISM Status: Chronic (10) Hypertension Code(s): I10 - ESSENTIAL (PRIMARY) HYPERTENSION Status: Chronic Qualifiers: Hypertension type: essential hypertension Qualified Code(s): I10 - Essential (primary) hypertension (11) Macrocytic anemia Code(s): D53.9 - NUTRITIONAL ANEMIA, UNSPECIFIED Status: Chronic (12) Hyperbilirubinemia Code(s): E80.6 - OTHER DISORDERS OF BILIRUBIN METABOLISM Status: Acute - Plan Plan: Patient is a 58M with PMHx of HTN, CAD, h/o TIA, CKD 3, chronic afib s/p pacemaker placement, COPD, HLD, GERD, and chronic macrocytic anemia admitted for acute on chronic hypoxic respiratory failure due to acute exacerbation of combined CHF due to pacemaker malfunction. #Pacemaker Malfunction #Acute exacerbation of combined systolic CHF -pacemaker interpretation demonstrated malfunction of the atrial lead and the bi -ventricular device -likely causing an acute exacerbation of his combined CHF -BNP 2007 -Dr. Liz unavailable this weekend -Dr. Aguilar started milrinone drip; appreciate further recommendations -rec continuing milrinone at 0.375mcg/kg/min -transitioning patient from carvedilol to toprolol XL -PICC line for prolonged treatment with milrinone drip -trial of lasix; edema and SOB greatly improved this morning -will consider transfer to [facility] vs stabilization over the weekend in anticipation for Dr. Liz to return and revise his pacemaker -strict I/O -daily weights #Acute on chronic hypoxic respiratory failure #COPD -likely due to acute exacerbation of chronic systolic CHF -required 2L O2 in the ED at one point during admission -s/p lasix -oxygen support prn -continue home COPD meds #Elevated troponins -looking through his hx, he has chronically elevated troponins likely due to his severe HFrEF -patient denies chest pain at this time -no ST elevation on EKG #Hyperbilirubinemia -likely due to hepatic congestion from acute exacerbation of combined CHF #Chronic afib s/p pacemaker placement -paced rhythm on EKG in ED -continue home eliquis #HLD -continue home meds #GERD -continue home meds #Chronic macrocytic anemia #CKD -likely 2/2 hx of CKD -will continue to monitor -will avoid renally toxic drugs #HTN -will hold home losartan at this time -started milrinone drip by Dr. Aguilar, continue -transition home carvedilol to toprolol XL -will continue to monitor #Gout -continue home meds Diet: HH DVTppx: home eliquis Dispo: inpatient for acute hypoxic respiratory failure 2/2 acute exacerbation of combined CHF 2/2 pacemaker disfunction; Dr. Aguilar consulted, appreciate recs; will continue milrinone drip and toprolol at this time and consider to monitor status Addendum - Attending - Attending Attestation Date/Time: 05/24/19 7793 I personally evaluated the patient and discussed the management with Dr. Oconnor. I agree with the History, Examination, Assessment and Plan documented above with any addition or exceptions noted below. Patient here for biventricular HF. He continues on milrinone drip. Feeling improved. SBP tolerating therapy. He did have some mild diuresis. Continue that course for now, awaiting further recs from Cardiology. Possible tank furnace operator plans for transfer for LVAD therapy. Will schedule for PICC line.
[2019-05-24] MEDS ORDERED: Furosemide 100 MG/10 ML VIAL SLOW IVP SCH (09:00)
[2019-05-24] MEDS ORDERED: Potassium Chloride 20 MEQ TAB PO SCH (09:00)
[2019-05-24] MEDS: Magnesium 2 GM/50 ML 2 GM in Premix Bag 1 BAG IVPB SCH ×2 (09:02→11:27)
[2019-05-24] MEDS: Aspirin 81 mg Enteric Coated Tablet PO SCH (09:07)
[2019-05-24] MEDS: Ferrous Sulfate 325 MG TAB PO SCH (09:08)
[2019-05-24] MEDS: Magnesium Oxide 400 MG TAB PO SCH (09:08)
[2019-05-24] MEDS: Apixaban 5 MG TAB PO SCH ×2 (09:09→21:29)
--- NOTE | 2019-05-24 09:42 | PRG ---
DATE OF SERVICE: 05/24/2019 SUBJECTIVE: Overnight, Mr. Aldrich developed shortness of breath last night. This was because he was throwing PVCs frequently. The pacing became ineffective again. Pacing rate was adjusted to 85 beats per minute to capture. Also, rate variability was adjusted. Now, he well tracked the occurrence, the PVCs were automatically paced slightly faster than a PVC, so that will be continued effective Bi-V pacing. Milrinone was able to be titrated up to 0.375 mcg/kg/minute. Lasix 60 mg IV was given. It was reported the patient put out 1150 mL. Afterwards, he felt good. He said he had a good night sleep. This morning, he felt much more energetic and is breathing much easier and felt much better in general. REVIEW OF SYSTEMS: GENERAL: There is no fever or chills. His cough has now gone. HEENT: There is no change in vision, hearing, or swallowing. PULMONARY: Please see HPI. CARDIOVASCULAR: There is no palpitation, chest pain, or syncope. GI: He still has a distended abdomen. He does not feel good with that. INTEGUMENTARY: He believed that his lower extremity edema has decreased. : He is able to urinate without difficulty. NEUROLOGIC: There are no focal deficits or weaknesses. MUSCULOSKELETAL: He did not complain of cramps this morning. PSYCHIATRIC: He is much more relaxed today. He does not appear to be depressed. MEDICATIONS: His current cardiac medications consist of: 1. Magnesium 200 mg daily. 2. Apixaban 5 mg b.i.d. 3. Toprol-XL 25 mg b.i.d. 4. Milrinone currently at 0.375 mcg/kg per minute. 5. Atorvastatin 40 mg nightly. DIAGNOSTIC STUDIES: Telemetry was reviewed. He is predominantly paced with occasional PVCs. There are no signs of v tach. His average heart rate is 84. PHYSICAL EXAMINATION: VITAL SIGNS: Current vitals are heart rate 90, blood pressure 114/77. GENERAL: He is alert, conversational in bed. He is much more relaxed in conversations today. Yesterday, he was short of breath from just talking. HEENT: Scleral icterus. EOMI. Oropharynx benign with moist mucosa. There is no erythema and no exudate. NECK: His JVP still elevated to his ear lobes. PULMONARY: Coarse breath sounds, got better air movement today. There is decreased breath sounds and slight crackles at the left base. CARDIAC: The patient has S1 and S2, and a very prominent S3, 2/6 holosystolic murmur at the apex with radiation to the left axilla, best heard at the left axilla. He also has distinct right ventricular heave. ABDOMEN: Distended, but nontender. Positive bowel sounds. EXTREMITIES: His lower extremity edema has decrease, now this is 1+ from feet to 1/3 way above the ankle, this is much better than yesterday. LABORATORY VALUES: Sodium improved slightly from 133 to 134, his creatinine improved from 1.43 down to 1.31. His magnesium is low at 1.4. His total bilirubin decreased from 7.7 down to 5.8. His BNP moved slightly from 2007 down to 1000. ASSESSMENT: A 58-year-old gentleman has [id number] heart failure with reduced ejection fraction. It is combined systolic and diastolic dysfunction heart failure. He also has right ventricular failure. With aid of milrinone, he resides at [place] [facility] Class IIIb. He has biliary dysfunction due to right heart failure despite causes of jaundice. He also has cardiac renal syndrome, does cause his renal insufficiency as evidenced by his JVP and also his distended abdomen. He is still very much volume overloaded. Furthermore, his magnesium is dangerously low. This needs to be corrected as soon as possible. Too low magnesium will trigger arrhythmias including torsade. Please see the following for recommendations. RECOMMENDATIONS: 1. Continue milrinone at 0.375 mcg/kg/minute IV GTT. 2. Magnesium 2 g IV twice a day as soon as possible. 3. Lasix 60 mg IV b.i.d. for today, will need to be rechecked tomorrow. 4. Fluid restriction at 1.8 L per day. 5. Change daily labs to CMP with follow his liver enzymes and make sure magnesium is followed every day. 6. Please give K-Dur 40 mEq one dose now. 7. Add K-Dur 20 mEq b.i.d. 8. Please keep potassium above 4 and please keep magnesium above 2. 9. He has difficult access. He will need multiple infusion, please ensure that a PICC line is placed as soon as possible. It has been a pleasure taking care of Mr. Aldrich. If you have any questions, please give me a call. Job ID: [id number]
[2019-05-24] MEDS: Furosemide 100 MG/10 ML VIAL SLOW IVP SCH (14:22)
[2019-05-24 17:21] LABS: Anion Gap 14 mmol/L (10-20); BUN (Urea Nitrogen) 25 mg/dL (8.4-25.7); Calc. Creatinine Clearance 82 mL/min (70-130); Calcium 9.5 mg/dL (7.8-10.44); Carbon Dioxide 26 mmol/L (22-29); Chloride 99 mmol/L (98-107); Estimated GFR-MDRD 72; Glucose 98 mg/dL (70-105); Magnesium 2.1 mg/dL (1.6-2.6); Sodium 135 mmol/L (136-145)
[2019-05-24] MEDS: Atorvastatin Calcium 40 MG TAB PO SCH (21:29)
[2019-05-24] MEDS: HYDROcodone/Acetaminophen 10/325 mg Tablet PO PRN (21:29)
[2019-05-24] MEDS: Potassium Chloride 20 MEQ TAB PO SCH (21:29)
[2019-05-25 03:34] LABS: #Basophils 0.1 thou/uL (0.0-0.2); #Eosinphils 0.2 thou/uL (0.0-0.7); #Lymphocytes 2.1 thou/uL (1.20-3.40); #Monocytes 1.2 thou/uL (0.11-0.59); #Neutrophils 7.1 thou/uL (1.40-6.50); %Basophils 0.9 % (0.0-1.0); %Eosinophils 2.1 % (0.0-10.0); %Lymphocytes 19.7 % (21.0-51.0); %Monocytes 11.6 % (0.0-10.0); %Neutrophils 65.8 % (42.0-75.0); Hemoglobin 10.5 g/dL (14.0-18.0); Mean Corpuscular HGB CONC 32.4 g/dL (32.0-36.0); Mean Corpuscular Hemoglobin 34.6 pg (27.0-31.0); Platelet Count 136 thou/uL (130-400); RBC Distribution Width 16.3 % (11.5-14.5); Red Blood Cell (RBC) Count 3.03 mill/uL (4.70-6.10); White Blood Cell (WBC) Count 10.8 thou/uL (4.8-10.8)
[2019-05-25 03:41] LABS: INR-International Normal Ratio 1.7; PTT 40.5 SEC (22.9-36.1); Prothrombin Time 19.9 SEC (12.0-14.7)
[2019-05-25 03:55] LABS: ALT (SGPT) 16 U/L (8-55); AST (SGOT) 34 U/L (5-34); Albumin 3.1 g/dL (3.5-5.0); Alkaline Phosphatase 143 U/L (40-110); Anion Gap 13 mmol/L (10-20); BUN (Urea Nitrogen) 25 mg/dL (8.4-25.7); Calc. Creatinine Clearance 85 mL/min (70-130); Calcium 9.6 mg/dL (7.8-10.44); Carbon Dioxide 26 mmol/L (22-29); Chloride 99 mmol/L (98-107); Estimated GFR-MDRD 76; Globulin 4.6 g/dL (2.4-3.5); Glucose 89 mg/dL (70-105); Potassium 4.4 mmol/L (3.5-5.1); Protein, Total 7.7 g/dL (6.0-8.3); Sodium 134 mmol/L (136-145)
--- NOTE | 2019-05-25 05:01 | PDOC.FM ---
- Subjective Subjective: Patient continues to do well this morning. Is not SOB on RA. Reports continued improvement in his legs and abdomen. Discussed plans for PICC line today, patient agreeable. - Objective Vital Signs & Weight: Vital Signs (12 hours) Temp Pulse Ox 05/25/19 00:22 97.5 F L 05/24/19 21:37 97.7 F 05/24/19 20:00 95 Weight Weight 90 kg Most Recent Monitor Data Heart Rate from ECG 107 NIBP 131/92 NIBP BP-Mean 105 Respiration from ECG 22 SpO2 94 I&O: 05/23/19 05/24/19 05/25/19 06:59 06:59 07:59 Intake Total 720 1540 Output Total 1150 2175 Balance -430 -635 Result Diagrams: 05/25/19 03:25 05/25/19 03:24 Phys Exam - Physical Examination Constitutional: NAD HEENT: moist MMs, sclera anicteric Neck: supple, full ROM Respiratory: no rhonchi scant expiratory wheezes lower lobes Cardiovascular: gallop paced rhythm Gastrointestinal: soft, positive bowel sounds some distention, improved Musculoskeletal: no edema, pulses present Neurological: non-focal, moves all 4 limbs Psychiatric: normal affect, A&O x 3 Skin: no rash, normal turgor Dx/Plan (1) Pacemaker complications Code(s): T82.9XXA - UNSP COMP OF CARDIAC AND VASCULAR PROSTH DEV/GRFT, INIT Status: Acute (2) Acute and chronic respiratory failure with hypoxia Code(s): J96.21 - ACUTE AND CHRONIC RESPIRATORY FAILURE WITH HYPOXIA Status: Acute (3) Acute exacerbation of CHF (congestive heart failure) Code(s): I50.9 - HEART FAILURE, UNSPECIFIED Status: Acute Qualifiers: Heart failure type: systolic Qualified Code(s): I50.23 - Acute on chronic systolic (congestive) heart failure (4) LIT (obstructive sleep apnea) Code(s): G47.33 - OBSTRUCTIVE SLEEP APNEA (ADULT) (PEDIATRIC) Status: Chronic (5) Elevated troponin Code(s): R74.8 - ABNORMAL LEVELS OF OTHER SERUM ENZYMES Status: Chronic (6) GERD (gastroesophageal reflux disease) Code(s): K21.9 - GASTRO-ESOPHAGEAL REFLUX DISEASE WITHOUT ESOPHAGITIS Status: Chronic Qualifiers: Esophagitis presence: without esophagitis Qualified Code(s): K21.9 - Gastro -esophageal reflux disease without esophagitis (7) Gout Code(s): M10.9 - GOUT, UNSPECIFIED Status: Chronic (8) HLD (hyperlipidemia) Code(s): E78.5 - HYPERLIPIDEMIA, UNSPECIFIED Status: Chronic (9) Hyperbilirubinemia Code(s): E80.6 - OTHER DISORDERS OF BILIRUBIN METABOLISM Status: Chronic (10) Hypertension Code(s): I10 - ESSENTIAL (PRIMARY) HYPERTENSION Status: Chronic Qualifiers: Hypertension type: essential hypertension Qualified Code(s): I10 - Essential (primary) hypertension (11) Macrocytic anemia Code(s): D53.9 - NUTRITIONAL ANEMIA, UNSPECIFIED Status: Chronic (12) Hyperbilirubinemia Code(s): E80.6 - OTHER DISORDERS OF BILIRUBIN METABOLISM Status: Acute - Plan Plan: Patient is a 58M with PMHx of HTN, CAD, h/o TIA, CKD 3, chronic afib s/p pacemaker placement, COPD, HLD, GERD, and chronic macrocytic anemia admitted for acute on chronic hypoxic respiratory failure due to acute exacerbation of combined CHF due to pacemaker malfunction. #Pacemaker Malfunction #Acute exacerbation of combined systolic CHF -pacemaker interpretation demonstrated malfunction of the atrial lead and the bi -ventricular device -likely causing an acute exacerbation of his combined CHF -BNP 2007>1704 -Dr. Liz unavailable this weekend -Dr. Aguilar started milrinone drip; appreciate further recommendations -rec continuing milrinone at 0.375mcg/kg/min -transitioning patient from carvedilol to toprolol XL -PICC line for prolonged treatment with milrinone drip -60mg lasix IV BID; edema and SOB greatly improved this morning -will consider transfer to [facility] vs continued stabilization in anticipation for Dr. Liz to return and revise his pacemaker -strict I/O -daily weights #Acute on chronic hypoxic respiratory failure #COPD -likely due to acute exacerbation of chronic systolic CHF -required 2L O2 in the ED at one point during admission, was tolerating RA well this am -s/p lasix -oxygen support prn -continue home COPD meds #Elevated troponins -looking through his hx, he has chronically elevated troponins likely due to his severe HFrEF -patient denies chest pain at this time -no ST elevation on EKG #Hyperbilirubinemia -likely due to hepatic congestion from acute exacerbation of combined CHF #Chronic afib s/p pacemaker placement -paced rhythm on EKG in ED -continue home eliquis #HLD -continue home meds #GERD -continue home meds #Chronic macrocytic anemia #CKD -likely 2/2 hx of CKD -will continue to monitor -will avoid renally toxic drugs #HTN -will hold home losartan at this time -started milrinone drip by Dr. Aguilar, continue -transitioned home carvedilol to toprolol XL -will continue to monitor #Gout -continue home meds Diet: DVTppx: home eliquis Dispo: inpatient for acute hypoxic respiratory failure 2/2 acute exacerbation of combined CHF 2/2 pacemaker disfunction; Dr. Aguilar consulted, appreciate recs; will continue milrinone drip and toprolol at this time and consider to monitor status; plan for PICC line today Addendum - Attending - Attending Attestation Date/Time: 05/25/19 3455 I personally evaluated the patient and discussed the management with Dr. Oconnor. I agree with the History, Examination, Assessment and Plan documented above with any addition or exceptions noted below.
[2019-05-25] MEDS: Furosemide 100 MG/10 ML VIAL SLOW IVP SCH ×3 (06:08→19:49)
[2019-05-25] MEDS: Ferrous Sulfate 325 MG TAB PO SCH (08:37)
[2019-05-25] MEDS: Aspirin 81 mg Enteric Coated Tablet PO SCH (08:37)
[2019-05-25] MEDS: Magnesium Oxide 400 MG TAB PO SCH (08:38)
[2019-05-25] MEDS: Potassium Chloride 20 MEQ TAB PO SCH ×2 (08:42→19:50)
--- NOTE | 2019-05-25 10:49 | SPC ---
MIDLINE VENOUS CATHETER PLACEMENT ULTRASOUND-GUIDED VENOUS ACCESS: (Peripherally inserted central catheter) DATE: 05/25/2019 HISTORY: 58-year-old male with heart failure requiring long-term IV antibiotics. No IV access. TECHNIQUE: Catheter caliber: 5 Thai Catheter trim length:34 cm Catheter lumen number:single Catheter tip location:Peripheral aspect of left subclavian vein Vein accessed:left basilic Total fluoroscopy time: 1.3 min. Dose area product: 4536 mGy*cm^2 Signed, informed consent was obtained. A tourniquet was applied at the proximal aspect of the arm. Th e arm was prepped and draped in the usual sterile fashion. A 25-gauge needle was used to applied buffered lidocaine superficially. The vein was punctured with a 21-gauge micropuncture needle under u ltrasound guidance. A 0.018 inch guidewire was advanced through the micropuncture needle and into the vein. Under fluoroscopic guidance, the guidewire was advanced to the subclavian vein. The wire co uld not be advanced beyond the peripheral aspect of the subclavian vein. The PICC was flushed and trimmed to the appropriate length. The micropuncture needle was exchanged over the guidewire for a 5 Thai peel-away dilator sheath. The dilator was exchanged over the guidewire for the PICC, which was then further advanced under fluoroscopy. The sheath and guidewire were removed. The PICC was flus hed again and secured in place at the arm after adjustment of tip position. The patient tolerated the procedure well. There was no complication. IMPRESSION: 1. Successful placement of midline venous catheter from left basilic vein to peripheral aspect of lef t subclavian vein. 2. Stenosis/scarring of left subclavian vein from previous central lines.
[2019-05-25] MEDS: Apixaban 5 MG TAB PO SCH ×2 (10:57→19:50)
--- NOTE | 2019-05-25 11:46 | PRG ---
DATE OF SERVICE: 05/25/2019 HISTORY: Mr. Mónica Aldrich had an excellent day. He has gained strength and endurance. He was able to walk a little bit that is what he said. He said that he also had excellent amount of urine output. He said that he feels like the small back is now gone. He is still very much relieved. Much discussion also took place about the next step. The patient says he really, really wants and needs to go home for several weeks to get this exactly in order. He realizes that he will need a heart transplant evaluation. At this time, he cannot be transported. REVIEW OF SYSTEMS: GENERAL: See HPI. There is no fever or chills. HEENT: There is no changing in vision, hearing, or swallowing. PULMONARY: Please see HPI. CARDIOVASCULAR: There is no palpitations, or syncope, and also see HPI. GI: He eats better now but he still has abdominal bloating. : He urinates well. MUSCULOSKELETAL: He did not complain of any muscle twitching today. INTEGUMENT: There is no skin breakdown. NEUROLOGIC: There are no focal deficits or weakness. PSYCHIATRIC: He is much more hopeful today. He did not complain of depression. MEDICATIONS: His cardiac medications include 1. Apixaban b.i.d. 2. Toprol-XL 25 mg q.12 hours. 3. Milrinone at 0.375 mcg/kg per minute. 4. Atorvastatin at 40 mg at bedtime. 5. Aspirin 81 mg daily. 6. Potassium at 20 mEq b.i.d., and also electrolyte supplement protocol. His telemetry was reviewed. He is nearly paced all the time. There is occasional PVC. There is a brief delay after the PVC. Other than that, there is no concerning arrhythmia. There is no ventricular tachycardia. PHYSICAL EXAMINATION: VITAL SIGNS: His current vitals are, heart rate 85, blood pressure 96/87. GENERAL: He is alert and conversational. He is much more relaxed. However, he will quickly get very short of breath with small movements such sitting up, trying to transfer, cardiac output, is not supporting his movements. HEENT: Show sclerae icterus. EOMI. His oropharynx is benign with moist mucosa. There is no erythema, no exudate. NECK: JVP is still at the earlobes that is at least 15 cm. PULMONARY: He has coarse breath sounds, better than yesterday, still diminished breath sounds at bases. CARDIAC: Mostly regular rate and rhythm, there is a loud S3 gallop, there is 2/6 holosystolic murmur at apex with radiation to the left axilla, there is also a right ventricular heave. ABDOMEN: Distended, not tender, but there is quite a bit ascites in it. EXTREMITIES: Lower extremity, there is minimal lower extremity edema. His net I and O yesterday recorded negative 650 mL. LABORATORY DATA: His labs include sodium 134, potassium 4.4, BUN 23, creatinine 1.19. His BNP is decreased to 1000.7. His total bilirubin is still at 6.0. ASSESSMENT: 1. A 58-year-old gentleman remains in heart failure with reduced ejection fraction, he is at least [place] [employer] class 3B heart failure with combined systolic and diastolic dysfunction. He also has a right ventricular failure. He likely to have severe secondary venous pulmonary hypertension. His cardiac renal syndrome with renal insufficiency has been corrected. He has liver dysfunction due to his right heart failure. This amount of right heart failure on exam and by labs usually does not support a left ventricle assist device. Consequently, the only definitive long-term solution for him would be evaluation with possible heart transplant. This cannot be done in this hospital. This has been explained to patient. Again, as stated in the opening paragraph, the patient wants to go home first before considering to our [facility]. As such, we will do the best we can in helping the patient with immediate goal of getting as much fluid off possible while preserving his renal function, maintain him at outpatient basis for about a month and in a month refer him to a heart transplant center to be evaluated. Please see the following for detailed recommendations. RECOMMENDATIONS: 1. Continue milrinone at 0.375 mcg/kg/minute IV GTT. 2. Increase frequency of Lasix to 60 mg IV t.i.d. 3. Please check BMP and magnesium at 5 p.m. today. 4. Please keep potassium at least 4 and also magnesium at least 2. [address] PICC today. It has been a pleasure taking care of Mr. Mónica Aldrich. If you have any questions, please give me a call. Ministerio ID: [id number]
[2019-05-25 17:35] LABS: Anion Gap 13 mmol/L (10-20); BUN (Urea Nitrogen) 23 mg/dL (8.4-25.7); Calc. Creatinine Clearance 83 mL/min (70-130); Calcium 9.5 mg/dL (7.8-10.44); Carbon Dioxide 25 mmol/L (22-29); Chloride 99 mmol/L (98-107); Estimated GFR-MDRD 73; Glucose 102 mg/dL (70-105); Magnesium 1.8 mg/dL (1.6-2.6); Potassium 4.3 mmol/L (3.5-5.1); Sodium 133 mmol/L (136-145)
[2019-05-25] MEDS: diphenhydrAMINE 25 MG CAP PO PRN (17:57)
[2019-05-25] MEDS: HYDROcodone/Acetaminophen 10/325 mg Tablet PO PRN (19:50)
[2019-05-25] MEDS: Atorvastatin Calcium 40 MG TAB PO SCH (19:51)
[2019-05-26] MEDS: diphenhydrAMINE 25 MG CAP PO PRN ×2 (00:25→18:11)
--- NOTE | 2019-05-26 06:39 | PDOC.FM ---
- Subjective Subjective: Pt doing well this morning, no acute events overnight. Had PICC line placed yesterday, tolerated well. No SOB, CP, n/v. Tolerating PO well. Voiding without difficulty. No pains. Spoke with Dr. Aguilar over the weekend, still thinking about referral for heart transplant, plans to discuss with family. - Objective MAR Reviewed: Yes Vital Signs & Weight: Vital Signs (12 hours) Temp Pulse Ox 05/26/19 03:33 97.8 F 05/25/19 23:25 97.9 F 05/25/19 20:00 96 05/25/19 19:46 97.5 F L Weight Weight 92 kg Most Recent Monitor Data Heart Rate from ECG 85 NIBP 120/77 NIBP BP-Mean 91 Respiration from ECG 13 SpO2 96 I&O: 05/24/19 05/25/19 05/26/19 05:59 06:59 06:59 Intake Total 1533 Output Total 2600 Balance -1067 Result Diagrams: 05/25/19 03:25 05/26/19 08:11 Phys Exam - Physical Examination Constitutional: NAD (resting comfortably in bed, good spirits.) Neck: no nodes Respiratory: no wheezing, no rales, no rhonchi, clear to auscultation bilateral Cardiovascular: RRR, no rub 2/6 JAY Gastrointestinal: soft, non-tender, no distention, positive bowel sounds Musculoskeletal: no edema Neurological: non-focal, moves all 4 limbs Psychiatric: normal affect, A&O x 3 Deviation from normal: L PICC in place Dx/Plan (1) Pacemaker complications Code(s): T82.9XXA - UNSP COMP OF CARDIAC AND VASCULAR PROSTH DEV/GRFT, INIT Status: Acute (2) Acute exacerbation of CHF (congestive heart failure) Code(s): I50.9 - HEART FAILURE, UNSPECIFIED Status: Acute Qualifiers: Heart failure type: systolic Qualified Code(s): I50.23 - Acute on chronic systolic (congestive) heart failure - Plan Plan: Patient is a 58M with PMHx of HTN, CAD, h/o TIA, CKD 3, chronic afib s/p pacemaker placement, COPD, HLD, GERD, and chronic macrocytic anemia admitted for acute on chronic hypoxic respiratory failure due to acute exacerbation of combined CHF due to pacemaker malfunction. #Pacemaker Malfunction leading to Acute exacerbation of combined systolic CHF - JANETT class 3B - pacemaker interpretation demonstrated malfunction of the atrial lead and the bi-ventricular device, likely causing an acute exacerbation of his combined CHF - BNP 2007>1704 - Dr. Liz unavailable over weekend - Dr. Aguilar started milrinone drip; appreciate further recommendations. Rec continuing milrinone at 0.375mcg/kg/min, transitioning patient from carvedilol to toprolol XL, increased lasix dose - 60mg lasix IV TID; edema and SOB greatly improved this morning -PICC line placed for prolonged treatment with milrinone drip - Dr. Aguilar rec pt consider heart transplant, pt is unsure of this option and wishes to discuss with family, plan to stabilize pt and discharge to hopefully f /u with transplant center as OP -strict I/O, daily weights - cont to monitor lytes, goal of K>4 and Mg>2, will replace as necessary #Acute on chronic hypoxic respiratory failure, with hx of COPD and CHF - likely due to acute exacerbation of chronic systolic CHF - required 2L O2 in the ED at one point during admission, was tolerating RA over past 24hrs - oxygen support prn - continue home COPD meds and lasix #Elevated troponins - he has chronically elevated troponins likely due to his severe HFrEF - patient denies chest pain, no acute EKG changes #Hyperbilirubinemia - likely due to hepatic congestion from acute exacerbation of combined CHF #Chronic afib s/p pacemaker placement - paced rhythm on EKG in ED - continue home eliquis #HLD - continue home meds #GERD - continue home meds #Chronic macrocytic anemia 2/2 CKD - likely 2/2 hx of CKD - will continue to monitor - will avoid renally toxic drugs #HTN - will hold home losartan at this time - started milrinone drip by Dr. Aguilar, continue - transitioned home carvedilol to toprolol XL - will continue to monitor #Gout - continue home meds Code: Full PCP: Doni Diet: RADHA DVTppx: home eliquis IVF: SL Dispo: inpatient for acute hypoxic respiratory failure 2/2 acute exacerbation of combined CHF 2/2 pacemaker disfunction; Dr. Aguilar consulted, appreciate recs; will continue milrinone drip and toprolol at this time and consider to monitor status Addendum - Attending - Attending Attestation Date/Time: 05/26/19 1900 I personally evaluated the patient and discussed the management with Dr. Sinha. I agree with the History, Examination, Assessment and Plan documented above with any addition or exceptions noted below. Patient improved. He continues to diurese well while on Milrinone. HF team on board. Work on setting up outpatient infusions. Discuss heart transplant potential with patient.
[2019-05-26] MEDS: Ferrous Sulfate 325 MG TAB PO SCH (08:20)
[2019-05-26] MEDS: Aspirin 81 mg Enteric Coated Tablet PO SCH (08:20)
[2019-05-26] MEDS: Apixaban 5 MG TAB PO SCH ×2 (08:20→20:57)
[2019-05-26] MEDS: Furosemide 100 MG/10 ML VIAL SLOW IVP SCH ×3 (08:21→20:57)
[2019-05-26] MEDS: Magnesium Oxide 400 MG TAB PO SCH (08:24)
[2019-05-26] MEDS: Potassium Chloride 20 MEQ TAB PO SCH ×2 (08:26→20:57)
[2019-05-26 08:55] LABS: ALT (SGPT) 15 U/L (8-55); AST (SGOT) 36 U/L (5-34); Albumin 3.2 g/dL (3.5-5.0); Alkaline Phosphatase 139 U/L (40-110); Anion Gap 16 mmol/L (10-20); BUN (Urea Nitrogen) 27 mg/dL (8.4-25.7); Bilirubin, Total 6.3 mg/dL (0.2-1.2); Calc. Creatinine Clearance 71 mL/min (70-130); Calcium 9.9 mg/dL (7.8-10.44); Carbon Dioxide 23 mmol/L (22-29); Chloride 99 mmol/L (98-107); Estimated GFR-MDRD 60; Glucose 97 mg/dL (70-105); Magnesium 1.6 mg/dL (1.6-2.6); Potassium 4.3 mmol/L (3.5-5.1); Protein, Total 8.2 g/dL (6.0-8.3); Sodium 134 mmol/L (136-145)
[2019-05-26 12:36] VITALS: BMI 28.3
--- NOTE | 2019-05-26 14:36 | PRG ---
DATE OF SERVICE: 05/26/2019 SERVICE: [facility]. SUBJECTIVE: Mr. Aldrich had a good day. He has increased strength. He also has increased endurance. He was able to walk a few steps without being severely short of breath. He felt like his abdominal edema has decreased. Because of that, he can eat a little bit better. His frequent PVCs also have disappeared. His cardiac rhythm is now becoming quite regular. He went through placement of the PICC in his left arm, apparently was a bit traumatic. He is edematous from the left forearm because of that. A long discussion took place yesterday about his treatment. With a biventricular failure, the only possible long-term effective treatment is a heart transplant. However, he strongly stated that he does not wish to have a hospital transfer at this point. He needs to go home to put his things in order, also to rally support. So, the overall plan, he will be eventually discharged on a chronic milrinone drip, maintaining his status as outpatient for about a month. After that, referral to a center who can do a heart transplant evaluation. REVIEW OF SYSTEMS: GENERAL: He is more energetic and less short of breath. See HPI. HEENT: There are no changes in vision, hearing, or swallowing. PULMONARY: Please see HPI. CARDIOVASCULAR: Please see HPI. There is no palpitation or syncope. GI: Please see HPI. : He does not have any problem with urination. He said he urinates quite a bit yesterday. Please see HPI. MUSCULOSKELETAL: He has some back pain. NEUROLOGIC: There are no focal deficits or weaknesses. INTEGUMENT: There are no skin breakdowns. MEDICATIONS: His current cardiac medication includes, 1. Apixaban 5 mg b.i.d. 2. Toprol-XL 25 mg q.12 hours. 3. Milrinone at 0.375 mcg/kg/minute. 4. Atorvastatin 40 mg at bedtime. 5. Lasix 60 mg IV t.i.d. 6. Potassium supplement p.o. b.i.d. PHYSICAL EXAMINATION: VITAL SIGNS: Telemetry was reviewed. He has predominantly paced rhythm with average rate about 85. He only has a few PVC, the irregularity that occurred in the last 2 days now gone. His current vitals are heart rate 87, blood pressure 114/76. GENERAL: He is alert, conversational, sitting comfortably in bed. HEENT: He continued to have scleral icterus, but less so today. His oropharynx is benign with moist mucosa. There is no erythema, no exudate. NECK: His JVP is still at the earlobe. PULMONARY: He has better breath sounds today. The air movement has improved. However, he has bilateral crackles at the bases, more prominent on the right. HEART: Regular rate and rhythm. There is a loud S3 gallop, there is 2/6 holosystolic murmur at the apex with radiation to left axilla and he has a significant right ventricular heave. ABDOMEN: Distended, but softer today. Positive bowel sounds. EXTREMITIES: Lower extremity, there is minimal or no edema; however, he does have a left arm edema from the PICC placement. LABORATORY DATA: There are no labs from this morning . His last set of labs include sodium 133, potassium 4.2, BUN 23, creatinine 1.23. ASSESSMENT: A 58-year-old gentleman remains in [place] Heart Association class 3B heart failure with reduced ejection fraction. It is combined systolic and diastolic dysfunction heart failure. He also has severe right ventricular dysfunction resulting in right ventricular failure. He is likely to have severe secondary pulmonary hypertension. He also has chronic renal insufficiency due to cardiorenal syndrome. His liver dysfunction is due to right heart failure. Currently, he still remains being volume overloaded. His JVP is high, but he still has rales in the lungs, and he still has quite a bit of ascites, in the abdomen. Although improved, much more needs to be done. Thus, we will need to continue with current rate of diuresis. Please see the following for my recommendations. RECOMMENDATION: 1. Increase milrinone to 0.425 mcg/kg/minute IV GTT. 2. Continue with Lasix 60 mg IV t.i.d. for now. We will need to aim to at least get the fluids out of the lungs where the rales are completely dissipated. 3. Once that is completed, then we will make attempt converting from IV diuretics to oral diuretics to support him to going home. 4. Infusion company will visit him today and set up home infusion if his insurance allow. 5. Please ask PT, OT and cardiac rehab to come by to mobilize him. 6. Please check labs again at 5 p.m. today and supplement electrolytes as needed to keep potassium above 4 and magnesium above 2. It has been a pleasure taking care of Mónica Aldrich. If any questions, please give me a call. Job ID: [id number]
[2019-05-26] MEDS ORDERED: Hydrocerin (Eucerin) Cream 120 gm Jar TOP PRN (17:48)
[2019-05-26] MEDS: Acetaminophen 325 MG TAB PO PRN (18:11)
[2019-05-26] MEDS: HYDROcodone/Acetaminophen 10/325 mg Tablet PO PRN (20:57)
[2019-05-26] MEDS: Atorvastatin Calcium 40 MG TAB PO SCH (20:58)
[2019-05-26] MEDS: Colchicine 0.3 MG TAB PO SCH (20:58)
[2019-05-27] MEDS: diphenhydrAMINE 25 MG CAP PO PRN ×2 (02:37→17:15)
[2019-05-27 03:01] LABS: ALT (SGPT) 15 U/L (8-55); AST (SGOT) 31 U/L (5-34); Albumin 3.1 g/dL (3.5-5.0); Alkaline Phosphatase 139 U/L (40-110); Anion Gap 14 mmol/L (10-20); BUN (Urea Nitrogen) 25 mg/dL (8.4-25.7); Bilirubin, Total 5.9 mg/dL (0.2-1.2); Calc. Creatinine Clearance 76 mL/min (70-130); Calcium 9.6 mg/dL (7.8-10.44); Carbon Dioxide 25 mmol/L (22-29); Chloride 99 mmol/L (98-107); Estimated GFR-MDRD 65; Globulin 4.7 g/dL (2.4-3.5); Glucose 86 mg/dL (70-105); Magnesium 1.8 mg/dL (1.6-2.6); Potassium 3.9 mmol/L (3.5-5.1); Protein, Total 7.8 g/dL (6.0-8.3); Sodium 134 mmol/L (136-145)
--- NOTE | 2019-05-27 06:34 | PDOC.FM ---
- Subjective Subjective: Yesterday had episode where he became very stressed and stated he wanted to go home. Met with pt and explained at length current plan, management, and need to stay inpatient to complete stabilization for preparation of discharge. Pt voiced agreement and understanding of plan and was eager to proceed with therapy. Overnight did well without any events. No CP, SOB, fever/chills. Does have early sacral ulcer and had mild pain relieved with norco overnight. PICC line in L continues to occlude with movement, awaiting replacement this morning. Overall in good spirits and eager to procedure with arranging home milrinone gtt and HH. Pt is still thinking about pursuing heart transplant and has not made a decision at this time. - Objective MAR Reviewed: Yes Vital Signs & Weight: Vital Signs (12 hours) Temp 05/27/19 03:36 97.8 F 05/26/19 23:39 97.9 F 05/26/19 19:48 97.8 F Weight Admit Weight 90 kg Weight 88.8 kg Most Recent Monitor Data Heart Rate from ECG 90 NIBP 118/87 NIBP BP-Mean 97 Respiration from ECG 14 SpO2 91 I&O: 05/25/19 05/26/19 05/27/19 06:59 06:59 06:59 Intake Total 1533 2028 Output Total 2600 1945 Balance -1067 83 Result Diagrams: 05/25/19 03:25 05/27/19 02:30 Phys Exam - Physical Examination Constitutional: NAD (resting comfortably, good spirits) HEENT: moist MMs Neck: supple Respiratory: no wheezing, no rales, no rhonchi, clear to auscultation bilateral Cardiovascular: RRR, no rub 2/6 JAY Gastrointestinal: soft, non-tender, no distention, positive bowel sounds Musculoskeletal: no edema Neurological: non-focal, moves all 4 limbs Psychiatric: normal affect, A&O x 3 Deviation from normal: Stage 1 sacral ulcer with dressing in place Dx/Plan (1) Pacemaker complications Code(s): T82.9XXA - UNSP COMP OF CARDIAC AND VASCULAR PROSTH DEV/GRFT, INIT Status: Acute (2) Acute exacerbation of CHF (congestive heart failure) Code(s): I50.9 - HEART FAILURE, UNSPECIFIED Status: Acute Qualifiers: Heart failure type: systolic Qualified Code(s): I50.23 - Acute on chronic systolic (congestive) heart failure - Plan Plan: Patient is a 58M with PMHx of HTN, CAD, h/o TIA, CKD 3, chronic afib s/p pacemaker placement, COPD, HLD, GERD, and chronic macrocytic anemia admitted for acute on chronic hypoxic respiratory failure due to acute exacerbation of combined CHF due to pacemaker malfunction. #Acute exacerbation of combined systolic CHF - JANETT class 3B - pacemaker interpretation demonstrated malfunction of the atrial lead and the bi-ventricular device, possibly causing an acute exacerbation of his combined CHF. Evaluated by Dr. Aguilar and no lead displacement and adjustments made with device which is currently working properly. No EP eval at this time. - BNP 2007 -> 1703 - Dr. Aguilar consulted, apprec recs. Started milrinone drip; Rec continuing milrinone at 0.375mcg/kg/min, transitioning patient from carvedilol to toprolol XL, increased lasix dose to 60mg IV TID - 60mg lasix IV TID; edema and SOB improved - PICC line placed for prolonged treatment with milrinone drip. Current PICC line in L occludes easily and was unable to be placed into IVC and thus ends in subclavian vein. Need Central venous access for gtt. IR consulted who will attempt to place PICC on R. If unable to place PICC on R will consider surg consult for Ha placement - Dr. Aguilar rec pt consider heart transplant, pt is unsure of this option and wishes to discuss with family, plan to stabilize pt and discharge to hopefully f /u with transplant center as OP - CM to assist with HH and cardiac rehab - strict I/O, daily weights - cont to monitor lytes, goal of K>4 and Mg>2, will replace as necessary #Stage 1 sacral ulcer - dressing in place, no s/s of infection - wound care consulted, positional changes #Acute on chronic hypoxic respiratory failure, with hx of COPD and CHF - likely due to acute exacerbation of chronic systolic CHF - required 2L O2 in the ED at one point during admission, tolerating RA now - oxygen support prn - continue home COPD meds and lasix #Elevated troponins - he has chronically elevated troponins likely due to his severe HFrEF - patient denies chest pain, no acute EKG changes #Hyperbilirubinemia - likely due to hepatic congestion from acute exacerbation of combined CHF #Chronic afib s/p pacemaker placement - paced rhythm on EKG in ED - continue home eliquis #HLD - continue home meds #GERD - continue home meds #Chronic macrocytic anemia 2/2 CKD - likely 2/2 hx of CKD - will continue to monitor - will avoid renally toxic drugs #HTN - will hold home losartan at this time - started milrinone drip by Dr. Aguilar, continue - transitioned home carvedilol to toprolol XL - will continue to monitor #Gout - continue home meds Code: Full PCP: Doni Diet: HH DVTppx: home eliquis IVF: SL Dispo: Inpatient for acute hypoxic respiratory failure 2/2 acute exacerbation of combined CHF. Dr. Aguilar consulted, appreciate recs; will continue milrinone drip and toprolol at this time and consider to monitor status. Arranging home services in anticipation of discharge within next few days. Addendum - Attending - Attending Attestation Date/Time: 05/27/19 1100 I personally evaluated the patient and discussed the management with Dr. Sinha. I agree with the History, Examination, Assessment and Plan documented above with any addition or exceptions noted below. Patient feeling improved. Successful PICC line placement today. Will escalate PO Mg repletion. Monitor SBP and for PVCs. Cardiology-HF team on board. Continue diuresis and need strict monitoring of I/O.
[2019-05-27] MEDS: Aspirin 81 mg Enteric Coated Tablet PO SCH (08:50)
[2019-05-27] MEDS: Ferrous Sulfate 325 MG TAB PO SCH (08:50)
[2019-05-27] MEDS: Magnesium Oxide 400 MG TAB PO SCH ×3 (08:51→19:38)
[2019-05-27] MEDS ORDERED: Famotidine 20 MG TAB PO SCH (09:00)
[2019-05-27] MEDS ORDERED: Furosemide 100 MG/10 ML VIAL SLOW IVP SCH ×3 (09:00→18:00)
[2019-05-27] MEDS: Colchicine 0.3 MG TAB PO SCH ×2 (09:02→19:38)
[2019-05-27] MEDS ORDERED: Potassium Chloride 20 MEQ TAB PO SCH (09:15)
--- NOTE | 2019-05-27 09:38 | PRG ---
DATE OF SERVICE: 05/27/2019 SUBJECT: Mr. Aldrich had a good day from a cardiac perspective. He was able to get up and walk three times. He said he was able to walk around the unit completely. However, there was some misunderstanding. He apparently wanted to leave against medical advice. After consultation with the in-house team, the patient decided to stay. He said that he is generally breathing easier. He noticed his leg edema has completely dissipated. His abdomen is softer. REVIEW OF SYSTEMS: GENERAL: He is feeling better. There is no fever or chills. HEENT: There is no change in vision, hearing, or swallowing. PULMONARY: Please see HPI. CARDIOVASCULAR: Please see HPI. There is no palpitations or syncope. GI: Please see HPI. He is able to eat well. : He is able to urinate well. NEUROLOGIC: There are no focal deficits or weaknesses. INTEGUMENT: There are no skin breakdowns. MUSCULOSKELETAL: He denies complaint of back pain this morning. MEDICATIONS: His current active cardiac medications include 1. Apixaban 5 mg b.i.d. 2. Magnesium oxide 400 mg b.i.d. 3. Toprol-XL 25 mg q.12 hours. 4. Milrinone 0.425 mcg/kg per minute. 5. Atorvastatin 40 mg daily. 6. Lasix 60 mg IV t.i.d. 7. Aspirin 81 mg daily. 8. Potassium chloride/K-Dur 20 mEq b.i.d. PHYSICAL EXAMINATION: Telemetry was reviewed. He is paced at 85. There were some PVCs, but there was no concerning arrhythmia. VITAL SIGNS: His vitals currently are, heart rate 86, blood pressure 118/77. GENERAL: He is alert, conversational, sitting comfortably in bed, breathing easy. HEENT: Show scleral icterus. EOMI. Oropharynx benign with moist mucosa without erythema, no exudate. NECK: His JVP is still at the earlobe. PULMONARY: Good air movement bilaterally. Clear to auscultation bilaterally today. He had crackles, all but disappeared. CARDIAC: Regular rate and rhythm with occasional irregularity. There is significant S3 gallop, there is 3/6 holosystolic murmur at the apex with radiation to the left axilla. There is also significant right ventricular heave present. ABDOMEN: Distended, soft, nontender. Positive bowel sounds so less distended than two days ago. EXTREMITIES: Lower extremity is minimal or no edema, warm and well perfused. LABORATORY VALUES: Sodium 134, potassium 3.9, creatinine 1.36, BUN 25, and total bilirubin of 5.9. There is also reports of PICC not placed. There is a midline that is intermittent. So this needs to be corrected. ASSESSMENT: A 58-year-old gentleman remains in [place] Heart Association Class 3B heart failure with reduced ejection fraction. It is combination of systolic and diastolic heart failure. He also has severe right ventricular dysfunction leading to failure. He has cardiorenal syndrome. He also has an underlying atrial arrhythmia post ablation. Currently, he is to be depending on Bi-V pacing and also milrinone. I interrogated his device again this morning. It showed that his biventricular pacing has increased from 66% to 90%. This greatly helped his cardiac output. He has been paced at 85 for a day and half now. I reduced his lower rate limit from 85 down to 80. After watching for a while he seem to be acceptable. He felt better and then there was still good biventricular capture approximately 90% of time. Due to the biventricular failure, the only long-term solution is a heart transplant. However, he may and may not be a candidate for this. Per prior agreement, the overall plan is for the patient to be discharged on home milrinone therapy. After he will be referred to a center that evaluate him for heart transplant. Please see the following for recommendations. RECOMMENDATIONS: 1. Please replace the midline with a PICC that is correctly positioned. This needed to support chronic milrinone therapy with a good flow. If that is not possible, he needs to convert to Ha. 2. Keep milrinone at 0.425 mcg/kg per minute IV GTT. May need to be titrated up in the future, but keep this for now. 3. Start valsartan 40 mg p.o. q.12 hours. This is designed to reduce the afterload, hopefully this will increase his cardiac output without further inotropic push. If his systolic blood pressure drops below 90, then please stop this. 4. His net I and O may not be correctly documented. For today, we will change from Lasix 60 mg IV t.i.d. to Lasix 80 mg IV b.i.d. This meant to give his kidneys rest to correct this and meant to give his kidney recovery time. 5. Dependent urine output today and placement today. He may not be able to discharge tomorrow. We need one day of oral diuretic testing to make sure that he can be maintained on oral diuretic. Tomorrow, we can try Bumex 2 mg p[address]o. b.i.d. in place of IV Lasix. It has been a pleasure taking care of Mr. Aldrich. If you have any questions, please give me a call. Job ID: [id number]
[2019-05-27] MEDS: Potassium Chloride 20 MEQ TAB PO SCH ×2 (10:38→19:39)
--- NOTE | 2019-05-27 10:47 | SPC ---
Sonographic guided right upper extremity PICC placement HISTORY: Need for long-term antibiotics. Infection. FINDINGS: After spine procedure and answering all questions, the right upper extremity was prepped an d draped in the usual sterile fashion. Sterile technique, buffered local anesthesia, sonographic guidance, and a 22-gauge needle were used to carefully access the right brachial vein. Standard techn ique used to place the tip of a 5 [place] single lumen PICC so that the tip lies at the level of the superior vena cava. Catheter was flushed and secured externally. Patient tolerated the procedure well and was returned in unchanged condition. Left upper extremity PICC was left in place since it was being used at the time for infusion. Fluoroscopy time 0 seconds. IMPRESSION: Right upper extremity PICC is ready for use.
[2019-05-27] MEDS: Apixaban 5 MG TAB PO SCH ×2 (11:21→19:39)
[2019-05-27] MEDS ORDERED: Magnesium 2 GM/50 ML 2 GM in Premix Bag 1 BAG IVPB SCH (11:45)
[2019-05-27] MEDS: Valsartan 80 MG TAB PO SCH (12:41)
[2019-05-27] MEDS: Acetaminophen 325 MG TAB PO PRN (17:15)
[2019-05-27] MEDS: HYDROcodone/Acetaminophen 10/325 mg Tablet PO PRN (19:39)
[2019-05-27] MEDS: Atorvastatin Calcium 40 MG TAB PO SCH (19:39)
[2019-05-28] MEDS: Acetaminophen 325 MG TAB PO PRN (00:18)
[2019-05-28] MEDS: Valsartan 80 MG TAB PO SCH (00:18)
[2019-05-28] MEDS: diphenhydrAMINE 25 MG CAP PO PRN ×2 (00:18→20:32)
[2019-05-28 05:03] LABS: ALT (SGPT) 13 U/L (8-55); AST (SGOT) 29 U/L (5-34); Albumin 2.9 g/dL (3.5-5.0); Alkaline Phosphatase 130 U/L (40-110); Anion Gap 12 mmol/L (10-20); BUN (Urea Nitrogen) 23 mg/dL (8.4-25.7); Bilirubin, Total 5.5 mg/dL (0.2-1.2); Calc. Creatinine Clearance 85 mL/min (70-130); Calcium 9.5 mg/dL (7.8-10.44); Carbon Dioxide 25 mmol/L (22-29); Chloride 103 mmol/L (98-107); Estimated GFR-MDRD 77; Globulin 4.3 g/dL (2.4-3.5); Glucose 82 mg/dL (70-105); Magnesium 1.9 mg/dL (1.6-2.6); Protein, Total 7.2 g/dL (6.0-8.3); Sodium 136 mmol/L (136-145)
--- NOTE | 2019-05-28 08:04 | PDOC.FM ---
- Subjective Subjective: Doing well this morning, no acute concerns or complaints. PICC line changed to R and is now much improved with less discomfort and occlusions. He does have mild swelling at site of old L PICC but this has decreased with time and elevation. No SOB, LE edema, CP, fever/chills. He is eager to continue with management and be able to be discharged home soon. - Objective MAR Reviewed: Yes Vital Signs & Weight: Vital Signs (12 hours) Temp 05/28/19 07:39 97.6 F 05/28/19 04:00 97.7 F 05/27/19 23:43 97.9 F Weight Admit Weight 90 kg Weight 90.3 kg Most Recent Monitor Data Heart Rate from ECG 80 NIBP 119/84 NIBP BP-Mean 95 Respiration from ECG 17 SpO2 88 I&O: 05/27/19 05/28/19 05/29/19 06:59 06:59 06:59 Intake Total 2027 2169 Output Total 1944 1725 Balance 83 445 Result Diagrams: 05/25/19 03:25 05/28/19 04:10 EKG Reviewed by me: Yes (tele: very occasional PVCs) Phys Exam - Physical Examination Constitutional: NAD (resting comfortably, good spirits) HEENT: moist MMs Neck: supple Respiratory: no wheezing, no rales, no rhonchi, clear to auscultation bilateral Cardiovascular: RRR, no significant murmur, no rub Gastrointestinal: soft, non-tender, no distention, positive bowel sounds Musculoskeletal: no edema Neurological: moves all 4 limbs Psychiatric: normal affect, A&O x 3 Deviation from normal: R PICC in place. L old PICC site midly swollen, non tender, no erythema Dx/Plan (1) Pacemaker complications Code(s): T82.9XXA - UNSP COMP OF CARDIAC AND VASCULAR PROSTH DEV/GRFT, INIT Status: Acute (2) Acute exacerbation of CHF (congestive heart failure) Code(s): I50.9 - HEART FAILURE, UNSPECIFIED Status: Acute Qualifiers: Heart failure type: systolic Qualified Code(s): I50.23 - Acute on chronic systolic (congestive) heart failure - Plan Plan: Patient is a 58M with PMHx of HTN, CAD, h/o TIA, CKD 3, chronic afib s/p pacemaker placement, COPD, HLD, GERD, and chronic macrocytic anemia admitted for acute on chronic hypoxic respiratory failure due to acute exacerbation of combined CHF due to pacemaker malfunction. #Acute exacerbation of combined systolic CHF - JANETT class 3B - Pacemaker evaluated by Dr. Aguilar and no lead displacement and adjustments made with device which is currently working properly. No EP eval at this time. Adjusted rate to 80 and currently has been doing well with only 3-4 PVC in past 24 hours. - BNP 2007 -> 1703 - Dr. Aguilar consulted, apprec recs. Started milrinone drip; Rec continuing milrinone as outpt, transitioned patient from carvedilol to toprolol XL, change lasix to bumex, added valsartan. - sxs resolved with no SOB or LE edema - PICC line exchanged from left to right and much improved with no occlusions or pain - Dr. Aguilar rec pt consider heart transplant, pt is unsure of this option and wishes to discuss with family, plan to stabilize pt and discharge to hopefully f /u with transplant center as OP - CM to assist with HH and cardiac rehab. Setting up home infusions. - strict I/O, daily weights - cont to monitor lytes, goal of K>4 and Mg>2, will replace as necessary. BP at goal. HR stable. #Stage 1 sacral ulcer - dressing in place, no s/s of infection - wound care consulted, positional changes #Acute on chronic hypoxic respiratory failure, with hx of COPD and CHF - likely due to acute exacerbation of chronic systolic CHF - required 2L O2 in the ED at one point during admission, tolerating RA now - oxygen support prn - continue home COPD meds and diuretics #Elevated troponins - has chronically elevated troponins likely due to his severe HFrEF - patient denies chest pain, no acute EKG changes #Hyperbilirubinemia, stable - likely due to hepatic congestion from acute exacerbation of combined CHF #Chronic afib s/p pacemaker placement - paced rhythm on EKG in ED - continue home eliquis #HLD - continue home meds #GERD - continue home meds #Chronic macrocytic anemia 2/2 CKD - likely 2/2 hx of CKD - will continue to monitor - will avoid renally toxic drugs #HTN - home losartan stopped. Started on Valsartan with goal of transitioning to Entresto if tolerated. Pt has had difficulty affording in past thus will need assistance with funding. - on milrinone gtt - transitioned home carvedilol to toprolol XL - will continue to monitor #Gout - continue home meds Code: Full PCP: Doni Diet: HH DVTppx: home eliquis IVF: SL Dispo: Inpatient for acute hypoxic respiratory failure 2/2 acute exacerbation of combined CHF. Dr. Aguilar consulted, appreciate recs; will continue milrinone drip and toprolol at this time and monitor status. Transitioned to PO medications with minor adjustments. Overall continues to improve. Arranging home services in anticipation of discharge within next few days. Addendum - Attending - Attending Attestation Date/Time: 05/28/19 1122 I personally evaluated the patient and discussed the management with Dr. Sinha. I agree with the History, Examination, Assessment and Plan documented above with any addition or exceptions noted below. Patient doing well. Swapped to PO diuretics and started on Entresto. He feels well and wants to go home. Outpatient milrinone not quite set up yet. Patient counselled extensively on the requirements for evaluation by cardiac transplant team, and he states he understands. However, he is continuing to use smokeless tobacco even in the hospital, so I doubt he will be compliant. Updated HF team today.
--- NOTE | 2019-05-28 10:04 | PRG ---
DATE OF SERVICE: 05/28/2019 SUBJECTIVE: Mr. Aldrich had a good day. He was able to walk. He said he is able to do that without being short of breath. He felt like his chest was a little loosen. He is able to breathe easier. Yesterday his PICC was able to be correctly placed in the right arm. Consequently, he is now receiving milrinone in the correct dosing. REVIEW OF SYSTEMS: GENERAL: More energetic. Please see HPI. There is no fever or chills. HEENT: There is no changing in vision, hearing, or swallowing. PULMONARY: Please see HPI. CARDIOVASCULAR: There is no palpitation or syncope. See HPI. GI: He eats well. : He is urinating well with no complaints. NEUROLOGIC: There are no focal deficits or weaknesses. INTEGUMENT: There is no skin breakdown. MUSCULOSKELETAL: He is not complaining of back pains today. PSYCHIATRIC: He is not depressed today, but he does still wants to go home today. CURRENT CARDIAC MEDICATIONS: Include 1. Valsartan 40 mg twice a day. 2. Apixaban 5 mg twice a day. 3. Toprol-XL 25 mg q.12 hours. 4. Milrinone 0.425 mcg/kg/minute. 5. Atorvastatin 40 mg each night. 6. He was on Lasix 80 mg IV b.i.d. This will be changed to Bumex 2 mg twice a day today. 7. He is also on K-Dur 20 mEq twice a day. PHYSICAL EXAMINATION: VITAL SIGNS: His telemetry was reviewed. He is mainly paced between 80 to 90. On observation, there are frequently occurring bigeminy period. There are also some PVCs. However, there is no ventricular tachycardia. His current vitals are heart rate 82, it is paced, blood pressure 119/84. GENERAL: He is alert and conversational, resting comfortably in bed. He still gets short of breath with exertions like moving around and getting up. HEENT: EOMI. He still has scleral icterus, and otherwise he is jaundiced still, but less so. Oropharynx benign with moist mucosa without erythema, no exudate. NECK: His JVP still up his earlobe. PULMONARY: Good air movement bilaterally. There is no rales today. CARDIAC: Regular rate and rhythm with occasional irregularity. There is prominent S3 gallop, there is 3/6 holosystolic murmur at apex with radiation to the left axilla. There is also right ventricular heave. ABDOMEN: Distended but less so today and soft. This is the smallest abdomen up to date yet. EXTREMITIES: Lower extremity, there is no discernable lower extremity edema. He is warm and well perfused. Is and Os, it is documented that he is positive 445 mL there is no edema. LABORATORY DATA: His lab values are indicating that he has volume contraction, so there is discordance there. I will go with his physical exam and chemistry. His chemistry shows sodium improved from 134 to 136, potassium stable at 4.0. His creatinine is 1.17. His total bilirubin has decreased down to 5.5. So all of these indicate that he has better cardiac output and lower volume. His pacemaker HL7 DEVELOPER-D was also interrogated. It showed that his effective biventricular pacing has decreased from 90% down to 80% for last 24 hours. This would suggest that lower rate limit of 80 to 85. He denied feeling any difference with change in rate, however, amount of bigeminy-escaping PVC has greatly reduced with the change. ASSESSMENT: A 58-year-old gentleman resides in [place] heart Association class 3B heart failure with reduced ejection fraction. This is a combined systolic and diastolic dysfunction heart failure due to nonischemic cardiomyopathy. He also has severe right ventricular failure. He has cardiac renal syndrome. However, milrinone at 0.425 mcg/kg/minute IV GTT is providing sufficient cardiac output to reverse his cardiorenal syndrome and given effective diuresis and volume contraction. His blood pressure also has been stable on valsartan 40 mg twice a day, so today we can upgrade his oral medication to include Entresto, a combination 24/26 mg twice a day. Ideally, we want to observe him for 24 hours to make sure he is stable on oral Entresto and also changing from IV Lasix 80 IV b.i.d. to oral Bumex 2 mg twice a day. Long-term plan ia also discussed with the patient. The need to not smoke and not ever do illicit drugs again was strongly emphasized. It was also emphasized to the patient he needs to have someone to stay with him for 24/7 for 30 days post discharge and be able to make it [facility] that would do heart transplant on a weekly basis, those are preconditions that he needs to be able to fulfill before being considered. As for chronic infusion, he will need to come back to clinic every 2 week basis to be checked. Please see the following for recommendations 1. Stop valsartan. 2. Start Entresto at 24/26 combination q.12 hours. If the systolic blood pressure drops to 90 below, to stop this. If not, this will be his outpatient regimen. 3. Use Bumex 2 mg p.o. twice a day in place of Lasix 80 mg IV. Observe for 24 hours to ensure that the patient is not gaining volume. 4. Please keep potassium at 4 or higher and magnesium at 2 and higher. 5. Please emphasize to the patient that he needs to not smoke, stay off all drugs and find family support. 6. If he is to be discharged, please ensure that he is seen at the [facility] within 1 week and follow up at q.2 weeks basis. It has been a pleasure taking care of Mr. Aldrich. If any question, please give me a call. Job ID: [id number]
[2019-05-28] MEDS: Bumetanide 1 MG TAB PO SCH ×2 (10:09→16:20)
[2019-05-28] MEDS: Apixaban 5 MG TAB PO SCH ×2 (10:09→20:33)
[2019-05-28] MEDS: Ferrous Sulfate 325 MG TAB PO SCH (10:09)
[2019-05-28] MEDS: Potassium Chloride 20 MEQ TAB PO SCH ×2 (10:10→20:32)
[2019-05-28] MEDS: Aspirin 81 mg Enteric Coated Tablet PO SCH (10:10)
[2019-05-28] MEDS: Magnesium Oxide 400 MG TAB PO SCH ×2 (10:10→20:33)
[2019-05-28] MEDS: Colchicine 0.3 MG TAB PO SCH (10:11)
[2019-05-28 10:32] VITALS: BP 125/86
[2019-05-28] MEDS: HYDROcodone/Acetaminophen 10/325 mg Tablet PO PRN (20:32)
[2019-05-28] MEDS: Atorvastatin Calcium 40 MG TAB PO SCH (20:33)
[2019-05-29 05:05] LABS: ALT (SGPT) 12 U/L (8-55); AST (SGOT) 29 U/L (5-34); Albumin 2.9 g/dL (3.5-5.0); Alkaline Phosphatase 151 U/L (40-110); Anion Gap 12 mmol/L (10-20); BUN (Urea Nitrogen) 21 mg/dL (8.4-25.7); Calc. Creatinine Clearance 81 mL/min (70-130); Calcium 9.3 mg/dL (7.8-10.44); Carbon Dioxide 25 mmol/L (22-29); Chloride 103 mmol/L (98-107); Estimated GFR-MDRD 72; Globulin 4.3 g/dL (2.4-3.5); Glucose 110 mg/dL (70-105); Magnesium 1.6 mg/dL (1.6-2.6); Potassium 3.9 mmol/L (3.5-5.1); Protein, Total 7.2 g/dL (6.0-8.3); Sodium 136 mmol/L (136-145)
[2019-05-29] MEDS ORDERED: Potassium Chloride 20 MEQ TAB PO SCH (06:45)
--- NOTE | 2019-05-29 06:52 | PDOC.FM ---
- Subjective Subjective: Doing well this morning, no sob, cp, n/v. Tolerating po well. Ambulating. States will stop any drug/etoh, illicits and plans to get family support to help with care. He is very eager for discharge but willing to stay as needed this morning. - Objective MAR Reviewed: Yes Vital Signs & Weight: Vital Signs (12 hours) Temp 05/29/19 03:46 97.2 F L 05/28/19 23:11 97.6 F 05/28/19 19:30 98.0 F Weight Admit Weight 90 kg Weight 41.005 kg Most Recent Monitor Data Heart Rate from ECG 90 NIBP 104/59 NIBP BP-Mean 74 Respiration from ECG 22 SpO2 93 I&O: 05/27/19 05/28/19 05/29/19 06:59 06:59 06:59 Intake Total 20270 2616 Output Total 1944 1725 2275 Balance 83 445 341 Result Diagrams: 05/25/19 03:25 05/29/19 04:05 EKG Reviewed by me: Yes (Tele: episodes of bradycardia to 40s-50s) Phys Exam - Physical Examination Constitutional: NAD (resting comfortably) HEENT: moist MMs Neck: supple Respiratory: no wheezing, no rales, no rhonchi, clear to auscultation bilateral Cardiovascular: RRR, no significant murmur, no rub Gastrointestinal: soft, non-tender, no distention, positive bowel sounds LUE edema, improved, no LE edema Neurological: moves all 4 limbs Psychiatric: normal affect, A&O x 3 Dx/Plan (1) Pacemaker complications Code(s): T82.9XXA - UNSP COMP OF CARDIAC AND VASCULAR PROSTH DEV/GRFT, INIT Status: Acute (2) Acute exacerbation of CHF (congestive heart failure) Code(s): I50.9 - HEART FAILURE, UNSPECIFIED Status: Acute Qualifiers: Heart failure type: systolic Qualified Code(s): I50.23 - Acute on chronic systolic (congestive) heart failure - Plan Plan: Patient is a 58M with PMHx of HTN, CAD, h/o TIA, CKD 3, chronic afib s/p pacemaker placement, COPD, HLD, GERD, and chronic macrocytic anemia admitted for acute on chronic hypoxic respiratory failure due to acute exacerbation of combined CHF due to pacemaker malfunction. #Acute exacerbation of combined systolic CHF - JANETT class 3B - Pacemaker evaluated by Dr. Aguilar and no lead displacement and adjustments made with device which is currently working properly. No EP eval at this time. Adjusted rate to 85, episodes of bradycardia to 40s and 50s overnight, will await recs and adjustments - BNP 2007 -> 1704 - Dr. Aguilar consulted, apprec recs. Started milrinone drip; Rec continuing milrinone as outpt, transitioned patient from carvedilol to toprolol XL, change lasix to bumex, transitioned valsartan to entresto. SBP 100s-90s, will monitor closely to see if tolerates new meds. - sxs resolved with no SOB or LE edema. I's and O's and daily weights do not appear to be correct, but appears euvolemic on exam. - PICC line exchanged from left to right and much improved with no occlusions or pain - Dr. Aguilar rec pt consider heart transplant, pt is unsure of this option and wishes to discuss with family, plan to stabilize pt and discharge to hopefully f /u with transplant center as OP - CM to assist with HH and cardiac rehab. Setting up home infusions. - strict I/O, daily weights - cont to monitor lytes, goal of K>4 and Mg>2, will replace as necessary. Monitor Bp and HR. #Stage 1 sacral ulcer - dressing in place, no s/s of infection - wound care consulted, positional changes #Acute on chronic hypoxic respiratory failure, with hx of COPD and CHF, resolved - likely due to acute exacerbation of chronic systolic CHF - required 2L O2 in the ED at one point during admission, tolerating RA now - oxygen support prn. continue home COPD meds and diuretics #Elevated troponins - has chronically elevated troponins likely due to his severe HFrEF - patient denies chest pain, no acute EKG changes #Hyperbilirubinemia, stable - likely due to hepatic congestion from acute exacerbation of combined CHF #Chronic afib s/p pacemaker placement - paced rhythm on EKG in ED, Dr. Aguilar adjusting as needed - continue home eliquis #HLD - continue home meds #GERD - continue home meds #Chronic macrocytic anemia 2/2 CKD - likely 2/2 CKD, monitor, and avoid nephrotoxic drugs. #HTN - Home losartan d/c'ed. Started on valsartan and transitioned to entresto. BP 90s-100s, cont to monitor. CM to assistance with med funding. - on milrinone gtt - transitioned home carvedilol to toprolol XL - will continue to monitor #Gout - continue home meds Code: Full PCP: Doni Diet: HH DVTppx: home eliquis IVF: SL Dispo: Inpatient for acute hypoxic respiratory failure 2/2 acute exacerbation of combined CHF. Dr. Aguilar consulted, appreciate recs; will continue milrinone drip and toprolol at this time and monitor status. Transitioned to PO medications with minor adjustments. Overall continues to improve. Arranging home services in anticipation of discharge within next few days. Addendum - Attending - Attending Attestation Date/Time: 05/29/19 0437 I personally evaluated the patient and discussed the management with Dr. Sinha. I agree with the History, Examination, Assessment and Plan documented above with any addition or exceptions noted below.
[2019-05-29] MEDS: Bumetanide 1 MG TAB PO SCH (08:46)
[2019-05-29] MEDS: Potassium Chloride 20 MEQ TAB PO SCH (08:46)
[2019-05-29] MEDS: Magnesium Oxide 400 MG TAB PO SCH (08:47)
[2019-05-29] MEDS: Aspirin 81 mg Enteric Coated Tablet PO SCH (08:47)
[2019-05-29] MEDS: Apixaban 5 MG TAB PO SCH (08:47)
[2019-05-29] MEDS: Ferrous Sulfate 325 MG TAB PO SCH (08:47)
--- NOTE | 2019-05-29 09:29 | PRG ---
DATE OF SERVICE: 05/29/2019 SUBJECTIVE: Mr. Aldrich has a good day. He was able to walk around the unit without being short of breath. Entresto at combination was able to be started. We were able to hold his systolic blood pressure above 95 throughout the day with that dosage. However, he was not pleased that he did not go home yesterday. Lasix 80 mg IV b.i.d. was converted to Bumex 2 mg p.o. b.i.d. He had good air urine output with that. Unfortunately, he drank quite a bit of fluids over 2.6 L. REVIEW OF SYSTEMS: GENERAL: He is less short of breath and has increased endurance. There is no fever or chills. HEENT: There is no change in vision, hearing, or swallowing. PULMONARY: Please see HPI. He is breathing easily. CARDIOVASCULAR: He denies palpitations or syncope. GI: He is able to eat well. : He is able to urinate well. NEUROLOGIC: There is no focal deficits or weaknesses. INTEGUMENT: There is no new skin breakdown. MUSCULOSKELETAL: There is no complaint of back pain today. MEDICATIONS: His active cardiac medications include, 1. Milrinone at 0.425 mcg/kg per minute at 195 pounds. 2. Apixaban, which is Eliquis 5 mg b.i.d. 3. Atorvastatin 40 mg at bedtime. 4. Magnesium oxide at 800 mg twice per day. 5. Potassium chloride from the K-Dur 20 mEq twice per day. 6. Aspirin 81 mg daily. 7. Toprol XL 25 mg b.i.d. 8. Bumex 2 mg b.i.d. Telemetry was examined. Mr. Aldrich had onset of bigeminy some time overnight and a bigeminy was persistent. With onset of bigeminy, his blood pressure decreased. Pacemaker AICD was interrogated and reprogrammed. I went through a stepwise adjustment of lower rate limit to find a rate that would decrease the bigeminy. Rates from 70 to 85 were done. Rate of 75 beats per minute is the lower limit, achieves the best biventricular pacing percentage. He is now left at lower rate limit of 75 beats per minute. His systolic blood pressure increased from 94 to 132 with that change. When he was in bigeminy per his pulse, he has alternating strong and weak beats. PHYSICAL EXAMINATION: VITAL SIGNS: Heart rate 75, blood pressure 132/61. GENERAL: He is alert, conversational, sitting comfortably in bed. HEENT: Shows EOMI. Scleral icterus. His eyes are still yellow, but less so. Oropharynx benign. There is moist mucosa. There is no erythema or exudate. NECK: His JVP is still just below his earlobe, it is high. PULMONARY: He has good air movement bilaterally. There are no rales. CARDIAC: He has now regular rate and rhythm with loud S3 gallop and 3/6 holosystolic murmur at apex with radiation to the left axilla. He also has significant right ventricular heave. ABDOMEN: Distended, but less so. Soft and nontender. EXTREMITIES: Lower extremity, they are without edema. Warm and well perfused. LABORATORY VALUES: This morning, his sodium is 136, potassium 3.9, BUN 21, creatinine 1.25. His total bilirubin has decreased down to 5.0, this is the lower total bilirubin yet. So consequently, he is now having adequate perfusion to his liver to clear the bilirubin. ASSESSMENT: A 58-year-old gentleman remains in [place] Heart Association Class 3B heart failure with reduced ejection fraction. It contains both systolic and diastolic dysfunction heart failure. He also has severe right ventricular dysfunction leading to right ventricular failure. He has underlying atrial arrhythmia with a low rate. He is pacemaker dependent. However, he does have a history of sustained ventricular tachycardia and recent history of bigeminy with the perfusion. He does have a cardiorenal syndrome; however, with start of milrinone, this has cleared. He also has liver and biliary dysfunction and due to his right heart failure, this has improved with improved cardiac output. Please see the following for recommendations. RECOMMENDATIONS: 1. Continue the milrinone at 0.425 mcg/kg/minute IV GTT. 2. Continue Toprol-XL at 25 mg q.12 hours, may consider increasing this at later day. 3. Continue Entresto / q.12 hours. 4. Continue Bumex 2 mg b.i.d. 5. Please provide enough potassium and also magnesium or supplementation that would keep the potassium at 4 and magnesium at 2. 6. We will arrange for the patient to be followed up in the [facility]. The patient has a very poor prognosis. He has biventricular failure. He is needing suppressing high dose of milrinone. With amount of ectopy conduction problems, he has very little time left. Unfortunately, he chose not to have a hospital house transfer, but go home first. Per prior agreement, he will try to get his together. We will refer him to a center, who can do definitive advanced heart failure therapy as an outpatient. He will be tested on a regular basis for illicit drugs and also smoking. Please remind the patient he is not to drink over 2 L per day and he is to limit his sodium intake to less than 2000 mg per day. It has been a pleasure taking care of Mr. Aldrich. If you have any questions, please give me a call. Job ID: [id number]
[2019-05-29 11:27] VITALS: TEMP 97.6
--- NOTE | 2019-05-30 01:32 | DIS ---
DATE OF ADMISSION: 05/23/2019 DATE OF DISCHARGE: 05/29/2019 RESIDENT: Donovan Sinha MD ADMITTING ATTENDING: Roberto Vu MD DISCHARGE ATTENDING: Roberto Vu MD. CONSULTATIONS: Dr. Aguilar, heart failure specialist. PROCEDURES: 1. Chest x-ray on 05/23/2019 demonstrating stable cardiomegaly. 2. PICC line placement of left upper extremity on 05/25/2019, removed on 2018. 3. Right upper extremity PICC line placed on 05/26/2019. 4. Milrinone drip, continued upon discharge. PRIMARY DIAGNOSES: 1. Acute exacerbation of combined systolic/congestive heart failure, [place] Heart Association class 3B. 2. [id number] hypoxic respiratory failure with history of chronic obstructive pulmonary disease, congestive heart failure, resolved. SECONDARY DIAGNOSES: 1. Stage I sacral ulcer. 2. Elevated troponins, chronic. 3. Hyperbilirubinemia, stable. 4. Chronic atrial fibrillation, status post pacemaker. 5. Hyperlipidemia. 6. Gastroesophageal reflux disease. 7. Chronic microcytic anemia. 8. Hypertension. 9. Gout. DISCHARGE MEDICATIONS: 1. Aspirin 81 mg p.o. daily. 2. Iron 325 mg p.o. daily. 3. Dexilant 60 mg p.o. daily. 4. [place] 10/325 one to two tablets p.o. q.4 hours p.r.n. 5. Flexeril 10 mg p.o. daily p.r.n. 6. Atorvastatin 80 mg p.o. at bedtime. 7. Eliquis 5 mg p.o. b.i.d. 8. DuoNebs q.i.d. p.r.n. 9. Sucralfate 1 g p.o. p.r.n. 10. Tylenol 650 mg p.o. q.6 hours p.r.n. 11. Bumex 2 mg p.o. b.i.d. with meals. 12. Magnesium oxide 400 mg p.o. b.i.d. 13. Metoprolol succinate 25 mg p.o. b.i.d. 14. Potassium chloride 20 mEq p.o. b.i.d. 15. Entresto 49 mg-51 mg one half tablet p.o. b.i.d. 16. Milrinone infusion DISCONTINUED MEDICATIONS: 1. Ambien 10 mg p.o. at bedtime. 2. Coreg 3.125 mg p.o. b.i.d. 3. Probenecid/colchicine 1 tab p.o. b.i.d. 4. Colchicine 1 tab p.o. b.i.d. 5. Magnesium 200 mg p.o. b.i.d. 6. Bumex 1 mg p.o. daily. 7. Losartan 12.5 mg p.o. daily. 8. Potassium chloride 20 mEq p.o. daily. HISTORY OF PRESENT ILLNESS AND HOSPITAL COURSE: The patient is a 58-year-old male, well known to the Family Medicine service with past medical historyof severe heart failure with ejection fraction status post AICD and pacemaker, hypertension, coronary artery disease, history of TIA, CKD 3, chronic atrial fibrillation, COPD, hyperlipidemia, GERD, and chronic microcytic anemia that was recently discharged from the hospital to rehab after a prolonged stay for sepsis secondary to right lower lobe pneumonia and acute hypoxic respiratory failure, who presented to the ED with shortness of breath. Per Dr. Aguilar, the patient's heart failure specialist , the patient presented to the Heart Failure Clinic today with severe shortness of breath, found to have an atrial lead in his pacemaker that was not working as well as a biventricular device not working. Dr. Liz was consulted, however, was unavailable and Dr. aguilar started him on Coreg and a milrinone drip and he was admitted to the [facility] for further evaluation and management. In the emergency department, he was given Lasix 60 mg, started on carvedilol and the milrinone drip. The patient's vital signs were initially stable and he was admitted for further evaluation and management. 1. Acute exacerbation of combined systolic congestive heart failure. The patient is [place] Heart Association class 3B. Dr. Aguilar continued to follow the patient and make adjustments to his medications throughout his hospitalization. His pacemaker was evaluated and found to have no lead displacement and adjustments were made to the device, which was currently working properly at the time of discharge. No electrophysiology evaluation was necessary. His pacemaker rate was adjusted due to several episodes of bradycardia and bigeminy throughout his hospitalization. His BNP was trended. This was 2000 at admission, decreased to 1704 and a BNP was ordered for the day of discharge, however, appears to not have been collected. The patient was continued on the milrinone drip and Dr. Aguilar discussed with the patient that he would be a candidate for a heart transplant due to his severe combined left and right heart failure. It was determined the patient would need to be discharged on the milrinone drip and thus a PICC line was placed on the left. This PICC line on the left was unable to be successfully placed completely and also infiltrated and occluded frequently, thus it was exchanged for a right-sided PICC line that functioned well upon discharge. Home infusion was arranged with home health. The patient was initially on Lasix IV. This was titrated up and eventually transitioned over to Bumex 2 mg twice daily and the patient tolerated this well, being on oral medications for 24 hours upon discharge. The patient was initially also transitioned from carvedilol to Toprol-XL and tolerated this well. The patient' s medications were also adjusted and that his losartan was discontinued and patient transitioned to valsartan and then eventually transitioned to Entresto, which he tolerated well with systolic blood pressures into the 100s and 90s. The patient 's shortness of breath and lower extremity edema resolved throughout his hospitalization and the patient was euvolemic at the time of discharge. His electrolytes were monitored with a goal potassium greater than 4 and a magnesium greater than 2. These were continued to replace and adjustments were made. At the time of discharge, the patient was discharged on both oral potassium and magnesium supplementation. It was also discussed at length with patient that in order to become a candidate for a heart transplant, he would need to continue taking his medications as directed as well as abstain from any tobacco, alcohol, or illicit drug use anymore. It was also discussed that the patient would need very strong family support and will need a caregiver that would be with him 09/10 and would also be to attend frequent followup visits for heart transplant. The patient voiced agreement and understanding of this. The patient was unsure, if he would like to pursue a heart transplant, but was eager to be discharged home and to follow up as an outpatient for further discussion. At the time of discharge, the patient was stable and discharge plan was discussed with Dr. Aguilar and with patient. The patient voiced agreement and understanding of the discharge plan and appropriate followup. The patient was discharged with home health, cardiac rehab and home infusions. 2. The patient also had [id number] hypoxic respiratory failure due to his congestive heart failure exacerbation. The patient initially required 2L O2 in the emergency department and this was weaned to room air well and his symptoms resolved and he was saturating well on room air at the time of discharge. 3. Stage I sacral ulcer. The patient had a stage I sacral ulcer that has been present upon admission. Wound Care was consulted with positional changes and the patient was instructed to ambulate frequently. 4. Elevated troponins. The patient has chronically elevated troponins due to severe heart failure. no acute chest pain or acute changes. 5. Hyperbilirubinemia. This is stable secondary to his hepatic congestion from combined congestive heart failure. 6. Atrial fibrillation status post pacemaker. His pacemaker was adjusted by Dr. Aguilar throughout the hospitalization. The patient will continue on his home Eliquis. 7. Hyperlipidemia. Continued on his home medications. 8. Gastroesophageal reflux disease. Continue on his home medications. 9. Chronic microcytic anemia secondary to chronic kidney disease and anemia of chronic disease. This was stable and nephrotoxic medications were avoided. 10. Hypertension. The patient's blood pressure was well controlled and at goal. Medication adjustments were made per above and blood pressure monitor. The patient will be continued outpatient monitoring of this. 11. At the time of discharge, discharge plan was discussed with patient at length. He voiced agreement and understanding. The patient was stable, eager to be discharged home and appeared euvolemic. All questions were answered appropriately. DISPOSITION: Stable. DISCHARGE INSTRUCTIONS: 1. Location: Home with home health. 2. Diet: Fluid-restricted, 1800 mL per day, heart healthy. 3. Activity: As tolerated. 4. Followup: The patient will need to follow up with his primary care provider , Dr. Marion within 1 week of discharge. The patient will also need to follow up with Dr. Aguilar in the CHF Clinic as directed. Job ID: [id number] [facility]
--- NOTE | 2019-05-31 15:36 | EKG ---
Test Reason : Blood Pressure : / mmHG Vent. Rate : 080 BPM Atrial Rate : 043 BPM P-R Int : 000 ms QRS Dur : 176 ms QT Int : 466 ms P-R-T Axes : 000 086 -51 degrees QTc Int : 537 ms Ventricular-paced rhythm Abnormal ECG Confirmed by CHUCKIE OLVERA M.D. ([id number]), graphics editor MELVINA CLARK ([id number]) on 05/31/2019 3:35:45 PM Referred By: Confirmed By:CHUCKIE OLVERA M.D.
== END 2019-05-29 14:32 | disposition home health service (06) | DRG 291 ==
LOC: ERS 10:59 → IMCU/EMU 18:13
PROVIDERS: ADMIT Student in an Organized Health Care Education/Training Program; ATTEND Student in an Organized Health Care Education/Training Program
PROC: 02HV33Z Insertion of Infusion Device into Superior Vena Cava, Percutaneous Approach (ICD-10-PCS; principal; 2019-05-27)
PROC: B548ZZA Ultrasonography of Superior Vena Cava, Guidance (ICD-10-PCS; 2019-05-27)
DX: I13.0 Hypertensive heart and chronic kidney disease with heart failure and stage 1 through stage 4 chronic kidney disease, or unspecified chronic kidney disease (principal); J96.21 Acute and chronic respiratory failure with hypoxia; I50.43 Acute on chronic combined systolic (congestive) and diastolic (congestive) heart failure; I48.20 Chronic atrial fibrillation, unspecified; J44.9 Chronic obstructive pulmonary disease, unspecified; L89.151 Pressure ulcer of sacral region, stage 1; E78.5 Hyperlipidemia, unspecified; K21.9 Gastro-esophageal reflux disease without esophagitis; N18.3 Chronic kidney disease, stage 3 (moderate); D63.1 Anemia in chronic kidney disease; G47.33 Obstructive sleep apnea (adult) (pediatric); D50.9 Iron deficiency anemia, unspecified; F17.210 Nicotine dependence, cigarettes, uncomplicated; I42.8 Other cardiomyopathies; F10.10 Alcohol abuse, uncomplicated; I27.20 Pulmonary hypertension, unspecified; M10.9 Gout, unspecified; Z79.01 Long term (current) use of anticoagulants; Z95.810 Presence of automatic (implantable) cardiac defibrillator; Z86.73 Personal history of transient ischemic attack (TIA), and cerebral infarction without residual deficits; Z88.8 Allergy status to other drugs, medicaments and biological substances
CPT/HCPCS: 36415; 36569; 71045; 80053; 82150; 82553; 83690; 83735; 83880; 84484; 85025; 85610; 85730; 93005; 93798; 96365; 96366; C1751; J1644; J1940; J2260; J3475; J3490; Q0163

== ENCOUNTER 2019-06-02 06:48 | Emergency (ER) | payer MEDICARE, MEDICAID ==
--- NOTE | 2019-06-02 08:12 | ULT ---
Venous duplex sonogram left upper extremity HISTORY: Left arm pain and edema. FINDINGS: Good color and spectral Doppler flow within the internal jugular, subclavian, axillary, bra chial, and cephalic veins. Good compression where appropriate. Initial images show some echogenicity within the deep portion of the internal jugular vein. Real-time evaluation, however, showed that this removed like very slow blood flow. The basilic vein of the upper arm is noncompressible. No internal flow. IMPRESSION: Thrombosis of the basilic vein. No extension to the deep venous system.
--- NOTE | 2019-06-02 09:47 | RAD ---
Chest one view HISTORY: Chest pain. COMPARISON: 05/23/2019. FINDINGS: Cardiac silhouette is magnified and enlarged. Pulmonary vasculature upper limits of normal. Mediastinum is midline with aortic calcification and a right subclavian multi lead defibrillator. No lobar consolidation or evidence of pneumothorax. Left lateral costophrenic angle is excluded from the image. IMPRESSION: Cardiomegaly with borderline pulmonary vascular congestion. Atherosclerosis.
[2019-06-02] MEDS ORDERED: Morphine 4 MG/ML VIAL ONE (10:01)
[2019-06-02] MEDS ORDERED: Ondansetron PF 4 MG/2 ML Vial ONE (10:02)
[2019-06-02 10:15] LABS: Hemoglobin 10.6 g/dL (14.0-18.0); Mean Corpuscular HGB CONC 32.4 g/dL (32.0-36.0); Mean Corpuscular Hemoglobin 34.6 pg (27.0-31.0); RBC Distribution Width 15.5 % (11.5-14.5); Red Blood Cell (RBC) Count 3.07 mill/uL (4.70-6.10); White Blood Cell (WBC) Count 10.7 thou/uL (4.8-10.8)
[2019-06-02 10:34] LABS: ALT (SGPT) 15 U/L (8-55); AST (SGOT) 35 U/L (5-34); Albumin 3.2 g/dL (3.5-5.0); Alkaline Phosphatase 134 U/L (40-110); Anion Gap 16 mmol/L (10-20); BUN (Urea Nitrogen) 18 mg/dL (8.4-25.7); Bilirubin, Total 5.8 mg/dL (0.2-1.2); Calc. Creatinine Clearance 0 mL/min (70-130); Calcium 9.8 mg/dL (7.8-10.44); Carbon Dioxide 21 mmol/L (22-29); Chloride 100 mmol/L (98-107); Estimated GFR-MDRD 84; Globulin 4.2 g/dL (2.4-3.5); Glucose 155 mg/dL (70-105); Protein, Total 7.4 g/dL (6.0-8.3); Sodium 133 mmol/L (136-145)
[2019-06-02 10:41] LABS: #Basophils 0.1 thou/uL (0.0-0.2); #Eosinphils 0.1 thou/uL (0.0-0.7); #Lymphocytes 1.2 thou/uL (1.20-3.40); #Monocytes 1.4 thou/uL (0.11-0.59); %Basophils 0.7 % (0.0-1.0); %Eosinophils 0.9 % (0.0-10.0); %Lymphocytes 11.2 % (21.0-51.0); %Monocytes 12.8 % (0.0-10.0); %Neutrophils 74.4 % (42.0-75.0); MDiff Complete? YES; Mean Platelet Volume 8.6 fL (7.4-10.4); Platelet Count 94 thou/uL (130-400); Platelet Morphology Comment Appears Decreased; Polychromasia SLIGHT = 2-3 cells (100X) (0-2/hpf)
[2019-06-02 10:47] LABS: CKMB 2.1 ng/mL (0-6.6)
--- NOTE | 2019-06-02 11:53 | NM ---
VQ SCAN: Date: 06/02/2019 INDICATION: Shortness of breath. RADIOPHARMACEUTICAL: 6.6 mCi technetium-99m MAA IV for the perfusion evaluation and 5 mCi Xenon-133 inhaled for ventilator y exam. FINDINGS: There is both mildly diminished ventilator and perfusion activity involving the left lower lobe. No l arge pleural based perfusion defect is evident. IMPRESSION: Low probability VQ scan for PE. POS: BH
== END 2019-06-02 13:00 | disposition left against medical advice (07) ==
LOC: ERS 06:48
DX: I80.8 Phlebitis and thrombophlebitis of other sites (principal); I11.0 Hypertensive heart disease with heart failure; I50.9 Heart failure, unspecified; I48.91 Unspecified atrial fibrillation; M10.9 Gout, unspecified; G47.30 Sleep apnea, unspecified; K21.9 Gastro-esophageal reflux disease without esophagitis; F17.210 Nicotine dependence, cigarettes, uncomplicated; Z79.899 Other long term (current) drug therapy; Z79.82 Long term (current) use of aspirin; Z79.01 Long term (current) use of anticoagulants
CPT/HCPCS: 71045; 78582; 80053; 82553; 83880; 84484; 85025; 93005; 94640; A9540; A9558; J2270; J2405; J7620

== ENCOUNTER 2019-06-02 23:44 | Emergency (ER) | payer MEDICARE, MEDICAID ==
[2019-06-03] MEDS ORDERED: Ketorolac Tromethamine 30 MG/ML VIAL ONE (02:03)
[2019-06-03] MEDS ORDERED: Ondansetron ODT 8 MG TAB ONE (02:03)
[2019-06-03] MEDS ORDERED: Ondansetron PF 4 MG/2 ML Vial ONE (02:03)
== END 2019-06-03 02:54 | disposition home or self-care (01) ==
LOC: ERS 23:44
DX: I80.8 Phlebitis and thrombophlebitis of other sites (principal); R11.0 Nausea; I11.0 Hypertensive heart disease with heart failure; I50.9 Heart failure, unspecified; J44.9 Chronic obstructive pulmonary disease, unspecified; I48.91 Unspecified atrial fibrillation; D50.9 Iron deficiency anemia, unspecified; K21.9 Gastro-esophageal reflux disease without esophagitis; G47.30 Sleep apnea, unspecified; M10.9 Gout, unspecified; F17.210 Nicotine dependence, cigarettes, uncomplicated; Z71.6 Tobacco abuse counseling; Z79.01 Long term (current) use of anticoagulants; Z79.899 Other long term (current) drug therapy; Z79.82 Long term (current) use of aspirin
CPT/HCPCS: 71045; 78582; 80053; 82553; 83880; 84484; 85025; 93005; 93971; 94640; A9540; A9558; 96372; 96374; 96375; 99406; J1885; J2270; J2405; J7620

== ENCOUNTER 2019-06-06 15:25 | Inpatient (IN) | payer MEDICARE, MEDICAID ==
[2019-06-06] MEDS ORDERED: Furosemide 20 MG/2 ML VIAL ONE (15:48)
[2019-06-06] MEDS ORDERED: Nitroglycerin 2% Ointment 1 INCH/1 GM Packet ONE (15:48)
--- NOTE | 2019-06-06 16:10 | RAD ---
Exam: Chest one view HISTORY:Dyspnea Comparison: 06/02/2019 FINDINGS: Cardiac silhouette:Cardiomegaly. Pacemaker: Stable dual lead right-sided transvenous defibrillator. Aorta: Atherosclerosis Pulmonary vessels: Normal Costophrenic angles: Clear LUNGS: Stable reticulonodular opacities. No consolidation. Pneumothorax: None Osseous abnormalities: None IMPRESSION: Congestive heart failure.
[2019-06-06 16:23] LABS: #Basophils 0.1 thou/uL (0.0-0.2); #Eosinphils 0.2 thou/uL (0.0-0.7); #Lymphocytes 1.8 thou/uL (1.20-3.40); #Monocytes 1.2 thou/uL (0.11-0.59); #Neutrophils 7.1 thou/uL (1.40-6.50); %Basophils 0.8 % (0.0-1.0); %Eosinophils 1.8 % (0.0-10.0); %Lymphocytes 17.1 % (21.0-51.0); %Monocytes 11.3 % (0.0-10.0); Hemoglobin 10.9 g/dL (14.0-18.0); Mean Corpuscular HGB CONC 31.4 g/dL (32.0-36.0); Mean Corpuscular Hemoglobin 33.9 pg (27.0-31.0); Mean Platelet Volume 10.2 fL (7.4-10.4); Platelet Count 90 thou/uL (130-400); RBC Distribution Width 15.5 % (11.5-14.5); Red Blood Cell (RBC) Count 3.22 mill/uL (4.70-6.10); White Blood Cell (WBC) Count 10.3 thou/uL (4.8-10.8)
[2019-06-06 16:44] LABS: ALT (SGPT) 15 U/L (8-55); AST (SGOT) 38 U/L (5-34); Albumin 3.2 g/dL (3.5-5.0); Alkaline Phosphatase 158 U/L (40-110); Anion Gap 15 mmol/L (10-20); BUN (Urea Nitrogen) 18 mg/dL (8.4-25.7); Bilirubin, Total 5.4 mg/dL (0.2-1.2); Calc. Creatinine Clearance 0 mL/min (70-130); Calcium 9.6 mg/dL (7.8-10.44); Carbon Dioxide 23 mmol/L (22-29); Chloride 99 mmol/L (98-107); Estimated GFR-MDRD 77; Globulin 4.5 g/dL (2.4-3.5); Glucose 103 mg/dL (70-105); Potassium 4.3 mmol/L (3.5-5.1); Protein, Total 7.7 g/dL (6.0-8.3); Sodium 133 mmol/L (136-145)
--- NOTE | 2019-06-06 17:04 | ULT ---
Exam: Left upper extremity venous ultrasound with Doppler Comparison 06/02/2019 TECHNIQUE: Grayscale, color flow, Doppler imaging and spectral waveform analysis performed the left u pper extremity venous system FINDINGS: There is soft tissue swelling and edema. Questionable persistent echogenic material in the internal jugular vein with presence of flow. Jugula r vein does compress. Echogenic material may Rouleaux flow. There is flow in the subclavian vein. There is compressibility and flow in the axillary vein, brachial vein, cephalic vein, radial vein and ulnar vein. There is persistent thrombus in the basilic vein. IMPRESSION: Persistent thrombus in the basilic vein. Transcribed Date/Time: 06/06/2019 5:16 PM
[2019-06-06 17:06] LABS: CKMB 2.3 ng/mL (0-6.6)
--- NOTE | 2019-06-06 18:07 | PDOC.FPRHP ---
- History of Present Illness Chief Complaint: SOB History of Present Illness: Patient is a 58M with PMHx of systolic/diastolic CHF, hyperbilirubinemia, chronic afib s/p pacemaker, HLD, GERD, chronic microcytic anemia, HTN, gout that presents with SOB. Patient reports he has been feeling well until 2 hours ago, when he was folding laundry and started feeling SOB. Denies cp. He had a recent hospitalization for decompensating CHF and was started on a milrinone drip at that time. ED Course: 1in nitro paste, 80mg IV lasix - Allergies/Adverse Reactions Allergies Allergy/AdvReac Type Severity Reaction Status Date / Time iodine Allergy Mild Hives Verified 06/06/19 21:05 spironolactone Allergy Verified 06/06/19 21:05 - Home Medications Medication Instructions Recorded Confirmed Type Aspirin [Ecotrin Low Strength] 81 mg PO DAILY #0 tab 04/21/13 06/06/19 Rx Cyclobenzaprine [Flexeril] 10 mg PO DAILY PRN 12/28/18 06/06/19 History Dexlansoprazole [Dexilant] 60 mg PO DAILY 12/28/18 06/06/19 History HYDROcodone/Acetaminophen 1 - 2 tab PO Q4H PRN 12/28/18 06/06/19 History [Hydrocodone-Acetamin 10-325 mg] Iron,Carbonyl [Feosol] 325 mg PO DAILY 12/28/18 06/06/19 History Atorvastatin Calcium 40 mg PO HS 03/19/19 06/06/19 History Apixaban [Eliquis] 5 mg PO BID 03/24/19 06/06/19 History Ipratropium/Albuterol Sulfate 3 ml NEB QID PRN #30 neb 03/24/19 06/06/19 Rx [DuoNeb] Sucralfate 1 gm PO PRN PRN 03/30/19 06/06/19 History Acetaminophen [Tylenol Regular 650 mg PO Q6H PRN tab 05/14/19 06/06/19 Rx Strength] Bumetanide [Bumex] 2 mg PO BID-AC #60 tab 05/29/19 06/06/19 Rx Magnesium Oxide 400 mg PO BID #60 tab 05/29/19 06/06/19 Rx Metoprolol Succinate [Toprol XL] 25 mg PO BID #60 tab 05/29/19 06/06/19 Rx Potassium Chloride [K-Dur] 20 meq PO BID #60 tab 05/29/19 06/06/19 Rx Sacubitril/Valsartan 49/51 0.5 tab PO BID #30 tablet 05/29/19 06/06/19 Rx [Entresto 49 mg-51 mg Tablet] Milrinone Lactate 7 ml IV ASDIR 06/06/19 06/06/19 History - History PMHx: systolic/diastolic CHF, hyperbilirubinemia, chronic afib s/p pacemaker, HLD, GERD, chronic microcytic anemia, HTN, gout PSHx: pacemaker with multiple revisions, PICC FHx: HTN, CAD, MS Social: Hx meth use, denies current use. Quit smoking/etoh use 2mo ago. - Review of Systems General: denies: fever/chills, weight/appetite/sleep changes Eyes: denies: eye pain, vision changes ENT: denies: nasal congestion, rhinorrhea Respiratory: reports: shortness of breath. denies: cough Cardiovascular: reports: edema. denies: chest pain Gastrointestinal: denies: nausea, vomiting, diarrhea, abdominal pain Genitourinary: denies: incontinence, dysuria Skin: denies: rashes, lesions Musculoskeletal: reports: swelling. denies: pain Neurological: denies: syncope, seizure Psychological: denies: anxiety, depression - Vital signs BP: [157/96] HR: [93] RR: [24] Tmax: [98.6F] Pox: [96]% on [2L] Wt: [102kg] - Physical Exam Constitutional: NAD, awake, alert and oriented HEENT: normocephalic and atraumatic, MMM Neck: supple, FROM Chest: no-tender to palpation, no lesions Heart: RRR, normal S1/S2, other (1+ pitting edema BLE) Lungs: other (crackles BLL) Abdomen: soft, non-tender Musculoskeletal: normal structure, ROM grossly normal, other (2+ pitting edema LUE) Neurological: no focal deficit, normal sensation Skin: no rash/lesions, good turgor Heme/Lymphatic: no unusual bruising or bleeding, no purpura Psychiatric: normal mood and affect, good judgment and insight FMR H&P: Results - Labs Result Diagrams: 06/07/19 04:43 06/07/19 04:43 Lab results: WBC 10.3 thou/uL (4.8-10.8) 06/06/19 16:18 Hgb 10.9 g/dL (14.0-18.0) L 06/06/19 16:18 Hct 34.7 % (42.0-52.0) L 06/06/19 16:18 MCV 108.0 fL (78.0-98.0) H 06/06/19 16:18 Plt Count 90 thou/uL (130-400) L 06/06/19 16:18 Neutrophils % 69.0 % (42.0-75.0) 06/06/19 16:18 Sodium 133 mmol/L (136-145) L 06/06/19 16:18 Potassium 4.3 mmol/L (3.5-5.1) 06/06/19 16:18 Chloride 99 mmol/L (98-107) 06/06/19 16:18 Carbon Dioxide 23 mmol/L (22-29) 06/06/19 16:18 BUN 18 mg/dL (8.4-25.7) 06/06/19 16:18 Creatinine 1.18 mg/dL (0.7-1.3) 06/06/19 16:18 Glucose 103 mg/dL (70-105) 06/06/19 16:18 Calcium 9.6 mg/dL (7.8-10.44) 06/06/19 16:18 Total Bilirubin 5.4 mg/dL (0.2-1.2) H 06/06/19 16:18 AST 38 U/L (5-34) H 06/06/19 16:18 ALT 15 U/L (8-55) 06/06/19 16:18 Alkaline Phosphatase 158 U/L (40-110) H 06/06/19 16:18 CK-MB (CK-2) 2.3 ng/mL (0-6.6) 06/06/19 16:18 B-Natriuretic Peptide 1298.8 pg/mL (0-100) H 06/06/19 16:18 Serum Total Protein 7.7 g/dL (6.0-8.3) 06/06/19 16:18 Albumin 3.2 g/dL (3.5-5.0) L 06/06/19 16:18 - EKG Interpretation EKG: v-paced, QTC 552 - Radiology Interpretation Chest x-ray Status: report reviewed by me (cardiomegaly, stable dual lead R-sided transvenous defibrillator) FMR H&P: A/P - Problem List (1) Acute exacerbation of CHF (congestive heart failure) Current Visit: No Status: Acute Code(s): I50.9 - HEART FAILURE, UNSPECIFIED Qualifiers: Heart failure type: systolic Qualified Code(s): I50.23 - Acute on chronic systolic (congestive) heart failure (2) Elevated troponin Current Visit: No Status: Chronic Code(s): R74.8 - ABNORMAL LEVELS OF OTHER SERUM ENZYMES (3) Hyperbilirubinemia Current Visit: No Status: Acute Code(s): E80.6 - OTHER DISORDERS OF BILIRUBIN METABOLISM (4) Chronic atrial fibrillation Current Visit: No Status: Chronic Code(s): I48.2 - CHRONIC ATRIAL FIBRILLATION * DO NOT USE * (5) GERD (gastroesophageal reflux disease) Current Visit: No Status: Chronic Code(s): K21.9 - GASTRO-ESOPHAGEAL REFLUX DISEASE WITHOUT ESOPHAGITIS Qualifiers: Esophagitis presence: without esophagitis Qualified Code(s): K21.9 - Gastro -esophageal reflux disease without esophagitis (6) HLD (hyperlipidemia) Current Visit: No Status: Chronic Code(s): E78.5 - HYPERLIPIDEMIA, UNSPECIFIED (7) Hypertension Current Visit: No Status: Chronic Priority: Medium Code(s): I10 - ESSENTIAL (PRIMARY) HYPERTENSION Qualifiers: Hypertension type: essential hypertension Qualified Code(s): I10 - Essential (primary) hypertension (8) Macrocytic anemia Current Visit: No Status: Chronic Code(s): D53.9 - NUTRITIONAL ANEMIA, UNSPECIFIED - Plan Patient is a 58M with systolic/diastolic CHF, hyperbilirubinemia, chronic afib s /p pacemaker, HLD, GERD, chronic microcytic anemia, HTN, gout admitted for acute CHF exacerbation #Acute on chronic systolic/diastolic CHF exacerbation -acute dyspnea -known hx of severely reduced EF systolic/diastolic CHF -BNP 1298 -CXR: cardiomegaly, findings of CHF -received 80mg IV lasix in ED -patient continues his milrinone drip at home and takes 2mg bumex BID -will continue milrinone drip and 2mg IV bumex BID -stric I/O, daily weights #Elevated trop -trop 0.127, likely due to fluid overload -will continue to trend #LUE 2+ pitting edema -recently had PICC in left arm that was removed during last hospitalization -LUE US demonstrated thrombus -will continue patient's home eliquis #Chronic afib s/p pacemaker -continue eliquis #QTC prolongation -avoid QTC prolonging medications #HLD -continue home meds #HTN -continue home meds Diet: HH DVTppx: continue home eliquis Dispo: inpatient tele for acute on chronic CHF exacerbation, received IV lasix in ED, will continue IV bumex dosing, strict I/O and daily weights Code: Full PCP: Doni CURRY H&P: Upper Level - Plan Date/Time: 06/06/191801 IVaughn MD, have evaluated this patient and agree with findings/plan as outlined by internal grinder resident. Pertinent changes/additions are listed here. Mónica Aldrich is a 58 year old M with a PMH of HFrEF (Echo in 02/2019 with EF 15- 20%) with AICD, COPD, HTN, A fib, MVP, GERD, Gout who presented to the ED with progressively worsening dyspnea over the last day. Was recently discharged from [facility] on 05/28 after a 6 day hospitalization for CHF exacerbation. He was seen by Dr. Aguilar during that stay and was discharged on Milrinone gtt via PICC. He states that he has been adhering to that regimen, as well as his bumex. Discharged on bumex 2 mg po bid. Denies any recent travel, fever, cough , chest pain, n/v, abdominal pain. Denies sick contacts. In the ED, vitals were T 98.6, HR 93, BP 157/86, O2 sat 96 on 2 L and RR 24. He was given nitro, aspirin, and Lasix 80 mg IV in ED. EKG showed paced rhythm, no ST changes. CXR showed CHF. WBC 10.3, Hg 10.9, Na 133, Cr 1.18, Bili 5.4, Trop 0.127, BNP 1298. On exam, he has 3+ pitting edema in b/l LEs. MMM, heart RRR no murmurs, Lungs with slight rales bilaterally. 3+ edema in L UE. US of L UE showed persistent clot. Admitting pt to IP [facility] for acute hypoxic respiratory failure 2/2 acute on chronic sys/michael CHF. Will continue supplemental O2, trend cardiac enzymes, strict I/Os, daily weight, fluid restriction. Continue milrinone and start bumex 2 mg IV BID. Will consider CTA to r/o PE if no improvement in respiratory status with diuresis due to hx of clot in L UE. Will consult cards/ Dr. Agiular in the AM. Please see internal grinder note above for full H&P, which I have reviewed and agree with. Code status: FULL CODE Addendum - Attending - Attending Attestation Date/Time: 06/07/191807 I personally evaluated the patient and discussed the management with [Bhavesh and Joey] I agree with the History, Examination, Assessment and Plan documented above with any addition or exceptions noted below. Frequent admission for CHF with history of noncompliance. Will discuss management with and bravo.
[2019-06-06] MEDS ORDERED: Ondansetron PF 4 MG/2 ML Vial IVP PRN (19:16)
[2019-06-06] MEDS ORDERED: Ondansetron ODT 4 MG TAB SL PRN (19:16)
[2019-06-06] MEDS ORDERED: Acetaminophen 325 MG TAB PO PRN ×2 (19:16→19:45)
[2019-06-06 20:51] LABS: Troponin I 0.106 ng/mL (< 0.028)
[2019-06-06 21:35] VITALS: BMI 31.1
[2019-06-06 22:52] LABS: Troponin I 0.124 ng/mL (< 0.028)
[2019-06-06] MEDS ORDERED: Cyclobenzaprine 10 MG TAB PO PRN (23:51)
[2019-06-06] MEDS ORDERED: Sucralfate 1 GM TAB PO PRN (23:51)
[2019-06-07] MEDS ORDERED: Sacubitril 49 MG/Valsartan 51 MG TABLET PO SCH (00:15)
[2019-06-07] MEDS ORDERED: Apixaban 5 MG TAB PO SCH (00:15)
[2019-06-07] MEDS: HYDROcodone/Acetaminophen 10/325 mg Tablet PO PRN ×3 (00:48→17:24)
[2019-06-07 05:08] LABS: #Basophils 0.1 thou/uL (0.0-0.2); #Eosinphils 0.2 thou/uL (0.0-0.7); #Lymphocytes 1.6 thou/uL (1.20-3.40); #Monocytes 1.1 thou/uL (0.11-0.59); #Neutrophils 6.6 thou/uL (1.40-6.50); %Basophils 1.1 % (0.0-1.0); %Eosinophils 2.3 % (0.0-10.0); %Lymphocytes 16.4 % (21.0-51.0); %Monocytes 11.6 % (0.0-10.0); %Neutrophils 68.7 % (42.0-75.0); Hemoglobin 10.7 g/dL (14.0-18.0); Mean Corpuscular HGB CONC 31.4 g/dL (32.0-36.0); Mean Platelet Volume 8.8 fL (7.4-10.4); Platelet Count 121 thou/uL (130-400); RBC Distribution Width 15.7 % (11.5-14.5); Red Blood Cell (RBC) Count 3.14 mill/uL (4.70-6.10); White Blood Cell (WBC) Count 9.6 thou/uL (4.8-10.8)
[2019-06-07 05:29] LABS: Anion Gap 16 mmol/L (10-20); BUN (Urea Nitrogen) 18 mg/dL (8.4-25.7); Calc. Creatinine Clearance 97 mL/min (70-130); Calcium 9.5 mg/dL (7.8-10.44); Carbon Dioxide 22 mmol/L (22-29); Chloride 99 mmol/L (98-107); Estimated GFR-MDRD 77; Glucose 97 mg/dL (70-105); Potassium 4.1 mmol/L (3.5-5.1); Sodium 133 mmol/L (136-145)
[2019-06-07 05:31] LABS: Troponin I 0.139 ng/mL (< 0.028)
[2019-06-07] MEDS: Bumetanide 1 MG/4 ML VIAL IVP SCH ×2 (05:41→13:32)
[2019-06-07 08:31] LABS: Troponin I 0.137 ng/mL (< 0.028)
[2019-06-07] MEDS: Potassium Chloride 20 MEQ TAB PO SCH ×2 (11:14→21:12)
[2019-06-07] MEDS: Sucralfate 1 GM TAB PO SCH ×4 (11:14→21:12)
[2019-06-07] MEDS: Sacubitril 49 MG/Valsartan 51 MG TABLET PO SCH ×2 (11:16→21:12)
[2019-06-07] MEDS: Aspirin 81 mg Enteric Coated Tablet PO SCH (11:16)
[2019-06-07] MEDS: Ferrous Sulfate 325 MG TAB PO SCH (11:17)
[2019-06-07] MEDS: Magnesium Oxide 400 MG TAB PO SCH ×2 (11:17→21:12)
[2019-06-07] MEDS: Apixaban 5 MG TAB PO SCH ×2 (11:17→21:12)
--- NOTE | 2019-06-07 17:56 | PDOC.BPN ---
- Brief Progress Note Spoke to Dr. Aguilar, appreciate recs Added amiodarone 400mg BID Cont Bumex Keep K >4, Mag > 2 Pacemaker setting adjusted by Dr. Aguilar Expect patient to stay inpatient for a least a few more days Not a candidate for transplant at this time
[2019-06-07] MEDS ORDERED: Amiodarone 200 MG TAB PO SCH (18:00)
[2019-06-07] MEDS ORDERED: Amoxicillin/Potassium Clav 875 MG TAB PO SCH (18:00)
[2019-06-07 18:26] LABS: #Basophils 0.1 thou/uL (0.0-0.2); #Eosinphils 0.3 thou/uL (0.0-0.7); #Lymphocytes 1.6 thou/uL (1.20-3.40); #Monocytes 1.2 thou/uL (0.11-0.59); #Neutrophils 7.6 thou/uL (1.40-6.50); %Basophils 0.7 % (0.0-1.0); %Eosinophils 3.3 % (0.0-10.0); %Monocytes 12.2 % (0.0-10.0); %Neutrophils 69.9 % (42.0-75.0); Band 12 % (5-11); Eosinophils 1 % (0-10); Hemoglobin 11.4 g/dL (14.0-18.0); Lymphocytes 19 % (21-51); MDiff Complete? YES; Mean Corpuscular HGB CONC 32.3 g/dL (32.0-36.0); Mean Corpuscular Hemoglobin 34.3 pg (27.0-31.0); Mean Platelet Volume 10.8 fL (7.4-10.4); Metamyelocyte 1 % (0-0); Monocytes 6 % (0-10); Neutrophil 60 % (42-75); Platelet Clumps SLIGHT; Platelet Count 26 thou/uL (130-400); RBC Distribution Width 15.6 % (11.5-14.5); Reactive Lymphocytes 1 % (0-10); Red Blood Cell (RBC) Count 3.32 mill/uL (4.70-6.10); White Blood Cell (WBC) Count 10.4 thou/uL (4.8-10.8)
[2019-06-07 18:36] LABS: ALT (SGPT) 12 U/L (8-55); AST (SGOT) 35 U/L (5-34); Albumin 2.9 g/dL (3.5-5.0); Alkaline Phosphatase 124 U/L (40-110); Anion Gap 18 mmol/L (10-20); BUN (Urea Nitrogen) 19 mg/dL (8.4-25.7); Bilirubin, Total 4.7 mg/dL (0.2-1.2); Calc. Creatinine Clearance 96 mL/min (70-130); Calcium 9.1 mg/dL (7.8-10.44); Carbon Dioxide 20 mmol/L (22-29); Chloride 98 mmol/L (98-107); Estimated GFR-MDRD 76; Globulin 4.5 g/dL (2.4-3.5); Glucose 111 mg/dL (70-105); Magnesium 1.2 mg/dL (1.6-2.6); Potassium 4.2 mmol/L (3.5-5.1); Protein, Total 7.4 g/dL (6.0-8.3); Sodium 132 mmol/L (136-145)
[2019-06-07] MEDS: Atorvastatin Calcium 40 MG TAB PO SCH (21:11)
[2019-06-07] MEDS: Amiodarone 200 MG TAB PO SCH (21:12)
[2019-06-07] MEDS: Amoxicillin/Potassium Clav 875 MG TAB PO SCH (21:12)
[2019-06-07 21:47] LABS: Cocaine Metabolite Screen Not Detected (NotDetected); Medtox Reader # READER 4; Methamphetamine Not Detected (NotDetected); Phencyclidine (PCP) Not Detected (NotDetected); THC/Cannabinoid Screen Not Detected (NotDetected)
[2019-06-07 21:48] LABS: Amphetamine Not Detected (NotDetected); Barbiturates Screen Not Detected (NotDetected); Benzodiazepine Screen Not Detected (NotDetected); Medtox Control Line Valid? VALID (VALID); Methadone Not Detected (NotDetected); Opiate Screen Detected (NotDetected); Oxycodone Screen Not Detected (NotDetected); Tricyclic Screen Not Detected (NotDetected)
[2019-06-08] MEDS: HYDROcodone/Acetaminophen 10/325 mg Tablet PO PRN ×2 (03:58→19:09)
[2019-06-08 04:26] LABS: #Basophils 0.1 thou/uL (0.0-0.2); #Eosinphils 0.4 thou/uL (0.0-0.7); #Lymphocytes 1.3 thou/uL (1.20-3.40); #Monocytes 1.1 thou/uL (0.11-0.59); #Neutrophils 6.7 thou/uL (1.40-6.50); %Eosinophils 4.2 % (0.0-10.0); %Lymphocytes 13.4 % (21.0-51.0); %Monocytes 11.7 % (0.0-10.0); %Neutrophils 69.7 % (42.0-75.0); Hemoglobin 11.3 g/dL (14.0-18.0); Mean Corpuscular HGB CONC 32.1 g/dL (32.0-36.0); Mean Corpuscular Hemoglobin 34.4 pg (27.0-31.0); Mean Platelet Volume 8.1 fL (7.4-10.4); Platelet Count 142 thou/uL (130-400); RBC Distribution Width 15.5 % (11.5-14.5); Red Blood Cell (RBC) Count 3.28 mill/uL (4.70-6.10); White Blood Cell (WBC) Count 9.6 thou/uL (4.8-10.8)
[2019-06-08 04:47] LABS: ALT (SGPT) 11 U/L (8-55); AST (SGOT) 28 U/L (5-34); Albumin 2.9 g/dL (3.5-5.0); Alkaline Phosphatase 128 U/L (40-110); Anion Gap 15 mmol/L (10-20); BUN (Urea Nitrogen) 19 mg/dL (8.4-25.7); Bilirubin, Total 4.6 mg/dL (0.2-1.2); Calc. Creatinine Clearance 90 mL/min (70-130); Calcium 9.2 mg/dL (7.8-10.44); Carbon Dioxide 22 mmol/L (22-29); Chloride 100 mmol/L (98-107); Estimated GFR-MDRD 70; Globulin 4.2 g/dL (2.4-3.5); Glucose 130 mg/dL (70-105); Magnesium 1.2 mg/dL (1.6-2.6); Protein, Total 7.1 g/dL (6.0-8.3); Sodium 133 mmol/L (136-145)
[2019-06-08] MEDS ORDERED: Magnesium Sulfate 3 GM in Sodium Chloride 0.9% 100 ML IVPB SCH (05:30)
[2019-06-08] MEDS: Bumetanide 1 MG/4 ML VIAL IVP SCH (05:54)
[2019-06-08] MEDS: Furosemide 100 MG/10 ML VIAL SLOW IVP SCH ×2 (06:02→13:00)
--- NOTE | 2019-06-08 06:30 | PDOC.FM ---
- Subjective Subjective: Patient seen resting in bed, doing well this morning. He says he feels like his breathing has improved. Denies any chest pain, SOB, back pain, abdominal pain, nausea, edema. - Objective MAR Reviewed: Yes Vital Signs & Weight: Vital Signs (12 hours) Temp Pulse Resp BP Pulse Ox 06/08/19 04:10 125/76 06/08/19 03:52 97.7 F 86 20 92/53 L 93 L 06/07/19 21:15 97.6 F 84 20 108/52 L 92 L Weight Weight 101.378 kg I&O: 06/06/19 06/07/19 06/08/19 06:59 06:59 06:59 Intake Total 1045 1200 Output Total 625 950 Balance 420 250 Result Diagrams: 06/08/19 04:11 06/08/19 04:11 Phys Exam - Physical Examination Constitutional: NAD HEENT: moist MMs, sclera anicteric Neck: no nodes, no JVD, supple Coarse breath sounds throughout, occasional rhonchi. Cardiovascular: RRR, no significant murmur Gastrointestinal: soft, non-tender, positive bowel sounds Musculoskeletal: pulses present 1+ non-pitting edema Neurological: normal sensation, moves all 4 limbs Lymphatic: no nodes Psychiatric: normal affect, A&O x 3 Skin: no rash, normal turgor Dx/Plan (1) Acute exacerbation of CHF (congestive heart failure) Code(s): I50.9 - HEART FAILURE, UNSPECIFIED Status: Acute Qualifiers: Heart failure type: systolic Qualified Code(s): I50.23 - Acute on chronic systolic (congestive) heart failure (2) Chronic atrial fibrillation Code(s): I48.2 - CHRONIC ATRIAL FIBRILLATION * DO NOT USE * Status: Chronic (3) Elevated troponin Code(s): R74.8 - ABNORMAL LEVELS OF OTHER SERUM ENZYMES Status: Chronic (4) GERD (gastroesophageal reflux disease) Code(s): K21.9 - GASTRO-ESOPHAGEAL REFLUX DISEASE WITHOUT ESOPHAGITIS Status: Chronic Qualifiers: Esophagitis presence: without esophagitis Qualified Code(s): K21.9 - Gastro -esophageal reflux disease without esophagitis (5) HLD (hyperlipidemia) Code(s): E78.5 - HYPERLIPIDEMIA, UNSPECIFIED Status: Chronic (6) Hyperbilirubinemia Code(s): E80.6 - OTHER DISORDERS OF BILIRUBIN METABOLISM Status: Chronic (7) Hypertension Code(s): I10 - ESSENTIAL (PRIMARY) HYPERTENSION Status: Chronic Qualifiers: Hypertension type: essential hypertension Qualified Code(s): I10 - Essential (primary) hypertension (8) Macrocytic anemia Code(s): D53.9 - NUTRITIONAL ANEMIA, UNSPECIFIED Status: Chronic - Plan Plan: Patient is a 58M with systolic/diastolic CHF, hyperbilirubinemia, chronic afib s /p pacemaker, HLD, GERD, chronic macrocytic anemia, HTN, gout admitted for acute CHF exacerbation: #Acute on chronic systolic/diastolic CHF exacerbation -acute dyspnea; known hx of severely reduced EF systolic/diastolic CHF -BNP 1298 -> 883 -CXR: cardiomegaly, findings of CHF -received 80mg IV lasix in ED -will continue milrinone drip and 2mg IV bumex BID -strict I/O, daily weights -Consult Dr. Aguilar-appreciate recs-will add Amiodarone 400 mg BID, keep K>4, Mag> 2, anticipates a few days stay, states pt not a candidate for transplant at this time #Elevated trop -trop 0.127, likely due to fluid overload #LUE 2+ pitting edema -recently had PICC in left arm that was removed during last hospitalization -LUE US demonstrated thrombus -will continue patient's home eliquis -pt initially reported he was taking an antibiotic for left arm, but after calling pharmacy they have no records of one, last filled Rx was on 04/18/19 for Eliquis #Chronic afib s/p pacemaker -continue eliquis #QTC prolongation -avoid QTC prolonging medications -hx of Torsades in last hospitalization -keep K >4, Mag >2, will replete prn #HLD -continue home meds #HTN -continue home meds #Macrocytic Anemia -aware, is chronic for patient Diet: HH DVTppx: continue home eliquis Code: Full PCP: Doni Dispo: Stable, admitted to inpatient on telemetry unit. Consult Dr. Aguilar, appreciate recs. Continue IV bumex dosing, monitor fluid status, I/O and daily weights. Anticipate LOS >2 days. Addendum - Attending - Attending Attestation Date/Time: 06/08/19 5927 I personally evaluated the patient and discussed the management with [Joey ] I agree with the History, Examination, Assessment and Plan documented above with any addition or exceptions noted below. continue plan of care in coordination with Dr. Aguilar
[2019-06-08] MEDS: Potassium Chloride 20 MEQ TAB PO SCH ×3 (08:35→16:41)
[2019-06-08] MEDS: Amoxicillin/Potassium Clav 875 MG TAB PO SCH ×2 (08:36→21:34)
[2019-06-08] MEDS: Amiodarone 200 MG TAB PO SCH ×2 (08:36→21:33)
[2019-06-08] MEDS: Aspirin 81 mg Enteric Coated Tablet PO SCH (08:37)
[2019-06-08] MEDS: Ferrous Sulfate 325 MG TAB PO SCH (08:37)
[2019-06-08] MEDS: Apixaban 5 MG TAB PO SCH ×2 (08:37→21:35)
[2019-06-08] MEDS: Magnesium Oxide 400 MG TAB PO SCH ×2 (08:37→21:33)
[2019-06-08] MEDS: Sacubitril 49 MG/Valsartan 51 MG TABLET PO SCH ×2 (08:38→21:32)
[2019-06-08] MEDS: Sucralfate 1 GM TAB PO SCH ×4 (08:38→21:34)
--- NOTE | 2019-06-08 10:37 | PRG ---
DATE OF SERVICE: 06/08/2019 SUBJECTIVE: Mr. Aldrich had a good day and night. He said that he is breathing much easier. He is able to lie on his back to sleep. Last night, he had actually slept. He denied any palpitations or syncope. He also believes his edema in his left arm and leg has decreased. REVIEW OF SYSTEMS: GENERAL: There is no fever or chills. HEENT: There is no change in vision, hearing, or swallowing. PULMONARY: Please see HPI. CARDIOVASCULAR: Please see HPI. GI: He is eating well. : He is able to urinate. He said he has gone many times. NEUROLOGIC: There is no focal deficits or weaknesses. INTEGUMENT: He still has quite a bit of left arm, left shoulder edema due to thrombosis of the superficial vein resulting in thrombophlebitis. MUSCULOSKELETAL: He does not have any complaints this morning. MEDICATIONS: Current cardiac medication includes 1. Sacubitril/valsartan 24/26 b.i.d. 2. Magnesium oxide 400 mg b.i.d. 3. Amiodarone 400 mg b.i.d. 4. Apixaban 5 mg b.i.d. 5. Toprol-XL 25 mg q.12 hours. 6. Milrinone currently at 0.425 mcg/kg per minute. 7. Atorvastatin 40 mg at bedtime. 8. IV diuretic has changed to Lasix 80 mg IV b.i.d. 9. Potassium chloride/K-Dur at 20 mEq b.i.d. PHYSICAL EXAMINATION: Telemetry was reviewed. He is in majority in biventricular paced rhythm, however, on every fourth beat there is PVC breaking through, so consequently he is being effectively paced about 75% of the time and the fourth one may not be. There is no appearance of ventricular tachycardia. His average heart rate is about 77. CURRENT VITALS: Heart rate 79, blood pressure 106/58. He is saturating 95% on room air. GENERAL: He is alert and conversational, reclining comfortably in bed. He is able to converse without difficulty. HEENT: Show EOMI. He still has scleral icterus but less so today. Oral mucosa is moist. No erythema. No exudate. NECK: JVP is still high at about 14 cm below the earlobe. PULMONARY: Good air movement bilateral, it has been improving, and slight left basilar crackles. HEART: Mostly regular with occasional irregularity. There is S1/S2. There is 2/6 holosystolic murmur at the apex with radiation to the left axilla. There is also 3/6 holosystolic murmur at the left upper sternal border. There is observable right ventricular heave. CHEST: He has some edema from his left hand to his left arm to the left chest. This edema has been decreasing. ABDOMEN: Distended, soft, nontender. Positive bowel sounds. BACK: He has presacral edema and also flank edema. EXTREMITIES: He has pitting edema that is about 0.5 cm deep from the feet and half way up towards his knees. This is less so than yesterday. LABORATORY VALUES: Sodium 133, potassium 4.0, magnesium 1.2. His BNP has decreased down to 883. ASSESSMENT: A 58-year-old gentleman resides at [place] Heart Association class 3B heart failure with reduced ejection fraction. He has both systolic and diastolic dysfunction. He also has right ventricular failure. His underlying atrial fibrillation, although contributed to this. He currently has suboptimal biventricular pacing. This also does not help with cardiac output. On the good side, he is getting effective diuresis and the total bilirubin is coming down. His renal function remains preserved. Please see the following for recommendations. RECOMMENDATIONS: 1. Increase milrinone to 0.5 mcg/kg/minute. 2. Please aggressively replace magnesium to reach 2.0 if possible. 3. Increase potassium supplement to keep potassium at 4.0 or higher. 4. Changeover to Lasix 80 mg IV b.i.d. I suspect this will be a long diuresis. We need to get the fluid off his abdomen and his back, at that point then we could think about discharge. 5. Another long discussion took place about his situation. The only definitive therapy for him will be a heart transplant. He told me again he does not have his family support that can make this possible. The family support requirement consists of someone or team of people willing to stay with him every day for 30 day post discharge. Currently, there is no such support. So we are left with palliative milrinone. We will continue to run milrinone to give him volume relieving and high quality of life. The maximal dose 0.75 mcg/kg/minute. Hopefully, we will not reach there for a while. It has been a pleasure taking care of Mr. Aldrich. If you have any questions, please give me a call. Job ID: [id number] MTDShelli
[2019-06-08] MEDS ORDERED: Magnesium 2 GM/50 ML 2 GM in Premix Bag 1 BAG IVPB SCH ×2 (10:45→19:00)
--- NOTE | 2019-06-08 10:59 | CON ---
DATE OF CONSULTATION: 06/07/2019 REASON FOR CONSULTATION: Management of acute exacerbation of chronic heart failure. HISTORY OF PRESENT ILLNESS: Mr. Mónica Aldrich, 58-year-old gentleman with biventricular failure with left ventricular ejection fraction of about 20% and RV dysfunction, was admitted for acute decompensation of heart failure. He was discharged for heart failure on 05/29/2019. At that time, he was doing well. He was able to lay flat. He was able to increase his walking distance to 100 feet. He said he felt pretty good. Then, he developed severe pain in his left arm. This took place at his PICC site that was not placed correctly, which was taken out. He was seen in the ER twice for that. His primary care gave him antibiotics. He said he started feeling better with the antibiotics. He noticed 2 days ago he was starting to regain fluids with lower extremity edema. However, he did not measure his weight, so could not tell me what his weight was. On Sunday morning of 06/05, he went to a laundromat. While he was doing laundry, he felt very fatigued, very shortness of breath. Together with his arm pain, he decided to go to the ER to seek help. He was scheduled for clinic appointment on Sunday. He missed his clinic appointment. Two nurses tried to call him once on and once on Sunday, he did not answer all calls. In the ER, he received Lasix 80 mg IV one dose and on the floor, he received Bumex 2 mg IV twice a day. He said that he had urinated at least 7 times and felt good with the fluid coming off. PAST MEDICAL HISTORY: 1. Heart failure with reduced ejection fraction with combined systolic and diastolic dysfunction, this also includes right ventricular failure. 2. History of ventricular tachycardia. 3. Nonischemic cardiomyopathy. 4. Hypertension. 5. Hyperlipidemia. 6. COPD. 7. History of alcohol abuse. 8. History of drug abuse. 9. Chronic macrocytic anemia. SOCIAL HISTORY: He states he has smoked for 40 years; however, he said he stopped in April 2019. Alcohol use, he said he started drinking alcohol heavily about 6 years ago. This includes 6 beers plus hard liquor each day. Eventually, he went to drink a large amount of beer daily. However, he said he stopped alcohol use altogether. Illicit drug use, the patient admitted using cocaine at different times in different forms in the past; however, he said he stopped in year 2010. FAMILY HISTORY: His father of cancer at age 76. His mother of cancer at age 55. A sister had heart failure, but of cancer in her 50s. He has another sister who of cancer in age 50s. ALLERGIES: IODINE AND SPIRONOLACTONE. CURRENT MEDICATIONS: 1. Apixaban 5 mg b.i.d. 2. Toprol-XL 25 mg b.i.d. 3. Milrinone 0.425 mcg/kg/minute IV GTT. 4. Bumex 2 mg IV b.i.d. 5. Entresto dosing twice a day. 6. Atorvastatin 40 mg at bedtime. REVIEW OF SYSTEMS: CONSTITUTIONAL: No fever, chills, or productive cough. Possibly some weight gain, but he did not measure. See HPI. HEENT: There is no change in vision, hearing, or swallowing. PULMONARY: His shortness of breath is better, now he can walk 100 feet. Please see HPI. However, he did have acute exacerbation of shortness of breath Sunday morning. CARDIOVASCULAR: Please see HPI. GI: He said he has good appetite. : He is able to urinate without difficulty. MUSCULOSKELETAL: He has left lower back pain. INTEGUMENT: There is no new skin breakdown. No rashes. NEUROLOGIC: There are no focal deficits or focal weakness. PSYCHIATRIC: The patient appeared to be calm today. He is not depressed. PHYSICAL EXAMINATION: VITAL SIGNS: Heart rate paced 75 beats per minute. Blood pressure 127/68, and temperature 98.4. GENERAL: Alert and conversational, sitting comfortably in bed, he is much better than in the last admission. He is able to speak in long sentences. HEENT: EOMI. PERRL. He still has jaundiced eyes. Oropharynx benign with moist mucosa. There is no erythema, no exudate. NECK: His JVP at about 14 cm just below the earlobe. PULMONARY: He has good breath sounds with good air movement. There are crackles at the left base. HEART: When paced, it is regular. Otherwise, he can have an irregularity. He has a 3/6 holosystolic murmur at the apex with radiation to the axilla. He also has 2/6 holosystolic murmur at left upper sternal border. So he has murmurs of mitral regurgitation and tricuspid regurgitation. His prominent S3 gallop is not present today. ABDOMEN: Distended, but nontender with positive bowel sounds. BACK: He has pitting edema about the flanks and then to lower back at sacral level. EXTREMITIES: He has 3+ pitting edema from bilateral feet, worse on the right toward his knee. You can push and dent greater than 1 cm from feet to two-thirds of the way up toward his kness. His LANGUAGE TEACHER-D device was interrogated. It is a [employer] Viva Quad XT LANGUAGE TEACHER-D [id number] , with serial number of [id number]. It is in VVIR mode with 75 beats per minute. It showed he has 3 runs of nonsustained VT. 6 beats on 06/05, 10 beats on 06/04 , and 12 beats on 06/01. These were not treated but self-terminated. His biventricular pacing percentage has increased from the 50s to the high 70s and 80s, currently at 81%. His thoracic impedance has steadily and significantly decreased. His baseline thoracic impedance about 75. His current thoracic impedance is about 42. This indicates that he is volume overloaded. His current lab values are sodium 133, potassium 4.1, creatinine 118, BUN 18. There is no current total bilirubin. There is no current magnesium. ASSESSMENT: 58-year-old gentleman resides in [place] Heart Association class 3B heart failure with reduced ejection fraction and suffering from acute exacerbation. He has both systolic and diastolic dysfunction heart failure. Worse, he has right ventricular failure. This combination makes recovery very difficult. He also has underlying atrial fibrillation. Lately, he has been experiencing ventricular tachycardia. This all indicated that his heart is getting worse. I spoke to the patient about his experience and rallying his family support for advanced heart failure therapy. With biventricular failure, his only long-term solution is to have heart transplant. He told me today he was unable to rally any family support to help him with it. He will require someone to stay with him for the entire day for 30 days post discharge. Currently, there is no family support for that. It is unclear why he decompensated. It could be that his heart is progressively getting worse. However, with the fluctuations in creatinine and sodium, it may suggest that he may not have been properly maintaining his milrinone infusion at home. Apparently, when switched to hospital milrinone in between diuretics, he improved significantly. At this point, we will need to control his recurrence of arrhythmia and diurese him to the point where he could be sustained at outpatient. RECOMMENDATIONS: 1. Add amiodarone 400 mg p.o. b.i.d. until 10 gram loading is done. Afterwards to be amiodarone 200 mg daily. 2. Continue milrinone at 0.425 mcg/kg/minute IV GTT, this may need to be titrated up depending on function and lab values. 3. Continue Toprol-XL at 25 mg b.i.d., this may need to be increased in the future. 4. Continue Entresto at 24/26 mg b.i.d., which currently is half a tablet of 49/ 51 mg. 5. May continue to use Bumex 2 mg IV b.i.d. In the future, may consider converting to Lasix 80 mg IV b.i.d. The Lasix will give him increased diuretic time.We will need to diurese to the point where his abdomen and back edema shrinks. 6. Continue to supplement his electrolytes to make sure potassium is above 4 and magnesium above 2. 7. Please complete urine drug screen. It has been a pleasure taking care of Mr. Mónica Aldrich. If you have any questions, please give me a call. Job ID: [id number] MTDD
[2019-06-08 16:44] LABS: Anion Gap 16 mmol/L (10-20); BUN (Urea Nitrogen) 19 mg/dL (8.4-25.7); Calc. Creatinine Clearance 82 mL/min (70-130); Calcium 9.6 mg/dL (7.8-10.44); Carbon Dioxide 22 mmol/L (22-29); Chloride 99 mmol/L (98-107); Estimated GFR-MDRD 66; Glucose 90 mg/dL (70-105); Magnesium 1.7 mg/dL (1.6-2.6); Potassium 4.4 mmol/L (3.5-5.1); Sodium 133 mmol/L (136-145)
[2019-06-08] MEDS: Atorvastatin Calcium 40 MG TAB PO SCH (21:35)
[2019-06-09] MEDS: Milrinone Lactate/D5W 20 MG in Premix Bag 1 BAG IVPB SCH ×3 (04:53→19:12)
[2019-06-09] MEDS: Furosemide 100 MG/10 ML VIAL SLOW IVP SCH ×2 (04:53→14:24)
[2019-06-09 05:02] LABS: ALT (SGPT) 12 U/L (8-55); AST (SGOT) 27 U/L (5-34); Albumin 3.1 g/dL (3.5-5.0); Alkaline Phosphatase 129 U/L (40-110); Anion Gap 14 mmol/L (10-20); BUN (Urea Nitrogen) 22 mg/dL (8.4-25.7); Bilirubin, Total 4.7 mg/dL (0.2-1.2); Calc. Creatinine Clearance 72 mL/min (70-130); Calcium 9.4 mg/dL (7.8-10.44); Carbon Dioxide 25 mmol/L (22-29); Chloride 99 mmol/L (98-107); Estimated GFR-MDRD 57; Globulin 4.3 g/dL (2.4-3.5); Glucose 92 mg/dL (70-105); Potassium 4.6 mmol/L (3.5-5.1); Protein, Total 7.4 g/dL (6.0-8.3); Sodium 133 mmol/L (136-145)
--- NOTE | 2019-06-09 05:58 | PDOC.FM ---
- Subjective Subjective: Pt feeling well this AM. Reports his breathing is "okay." Complains of dry skin and itching sensation on his back. Lotion applied but still feels itchy. Appetite is good. Overnight tele: ventricular pacing, occasional PVCs. Swelling remains the same. - Objective MAR Reviewed: Yes Vital Signs & Weight: Vital Signs (12 hours) Temp Pulse Resp BP BP Pulse Ox 06/09/19 04:07 97.9 F 72 14 101/65 98 06/09/19 00:00 79 112/63 06/08/19 21:24 97.5 F L 77 18 108/67 98 06/08/19 20:21 97 Weight Weight 100.879 kg I&O: 06/07/19 06/08/19 06/09/19 06:59 06:59 06:59 Intake Total 1045 1874.3 528 Output Total 625 1350 1325 Balance 420 524.3 -797 Result Diagrams: 06/08/19 04:11 06/09/19 03:51 Phys Exam - Physical Examination Constitutional: NAD Cardiovascular: RRR, no significant murmur Gastrointestinal: soft, non-tender Musculoskeletal: edema present (1+ pitting edema on flanks b/l, L arm swelling, no edema in LEs) Neurological: moves all 4 limbs Psychiatric: normal affect, A&O x 3 Dx/Plan (1) Acute exacerbation of CHF (congestive heart failure) Code(s): I50.9 - HEART FAILURE, UNSPECIFIED Status: Acute Qualifiers: Heart failure type: systolic Qualified Code(s): I50.23 - Acute on chronic systolic (congestive) heart failure (2) CKD (chronic kidney disease) stage 3, GFR 30-59 ml/min Status: Chronic (3) Hyperbilirubinemia Code(s): E80.6 - OTHER DISORDERS OF BILIRUBIN METABOLISM Status: Chronic (4) Hypertension Code(s): I10 - ESSENTIAL (PRIMARY) HYPERTENSION Status: Chronic Qualifiers: Hypertension type: essential hypertension Qualified Code(s): I10 - Essential (primary) hypertension - Plan Plan: Patient is a 58M with systolic/diastolic CHF, hyperbilirubinemia, chronic afib s /p pacemaker, HLD, GERD, chronic macrocytic anemia, HTN, gout admitted for acute CHF exacerbation: #Acute on chronic systolic/diastolic CHF exacerbation -acute dyspnea; known hx of severely reduced EF systolic/diastolic CHF -will continue palliative milrinone drip per Dr. Aguilar. Max dose is 75 mcg/kg/ minute. -hospital does not have supply of bumex: will diurese w/ lasix 80mg IV BID -strict I/O, daily weights -Consult Dr. Aguilar-appreciate recs. Continue Amiodarone 400 mg BID, keep K >4, Mag >2. -Definitive therapy is heart transplant. Pt does not have social support to undergo the operation. #LUE thrombus -continue patient's home eliquis #Chronic afib s/p pacemaker -continue eliquis #QTC prolongation -avoid QTC prolonging medications -hx of Torsades in last hospitalization -keep K >4, Mag >2, will replete prn #HLD -continue home meds #HTN -continue home meds #Macrocytic Anemia -aware, is chronic for patient Diet: HH DVTppx: continue home eliquis Code: Full PCP: Doni Dispo: Stable, continue diuresis. Addendum - Attending - Attending Attestation Date/Time: 06/09/19 5978 I personally evaluated the patient and discussed the management with Dr. Landeros. I agree with the History, Examination, Assessment and Plan documented above with any addition or exceptions noted below. Patient doing well, off O2. Continue Milrinone and diuresis, HF team on board.
[2019-06-09] MEDS: Aspirin 81 mg Enteric Coated Tablet PO SCH (09:07)
[2019-06-09] MEDS: Potassium Chloride 20 MEQ TAB PO SCH ×2 (09:07→16:21)
[2019-06-09] MEDS: Amiodarone 200 MG TAB PO SCH ×2 (09:07→20:30)
[2019-06-09] MEDS: Ferrous Sulfate 325 MG TAB PO SCH (09:07)
[2019-06-09] MEDS: Apixaban 5 MG TAB PO SCH ×2 (09:07→20:29)
[2019-06-09] MEDS: Magnesium Oxide 400 MG TAB PO SCH ×2 (09:08→20:30)
[2019-06-09] MEDS: Sucralfate 1 GM TAB PO SCH ×4 (09:08→20:31)
[2019-06-09] MEDS: Sacubitril 49 MG/Valsartan 51 MG TABLET PO SCH (09:09)
[2019-06-09] MEDS: Amoxicillin/Potassium Clav 875 MG TAB PO SCH ×2 (09:12→20:29)
[2019-06-09] MEDS: HYDROcodone/Acetaminophen 10/325 mg Tablet PO PRN ×2 (09:16→21:57)
[2019-06-09] MEDS: diphenhydrAMINE 30 GM TUBE TOP PRN ×2 (10:06→19:11)
--- NOTE | 2019-06-09 11:28 | PRG ---
DATE OF SERVICE: 06/09/2019 SERVICE: Advanced Heart Failure Cardiology Consulting Service. HISTORY OF PRESENT ILLNESS: Mr. Mónica Aldrich had a good day. He said he generally was able to breathe easier. He believed he is gaining strength. However, his laboratory values say otherwise. His creatinine is a bit worsening. He also said he has some cough. His orthopnea is getting better. He can sleep also nearly flat now. The milrinone was increased to 0.5 mcg/kg/minute last night. His pacer was interrogated at that time. The best adjustment was 75 beats per minute. There was some appearance of narrow complex going through, this could be underlying rhythm. When the pacemaker was inhibited, there is activity at slow rate around 50s. During that inhibition period, he felt bad, so the pace rate was left at 75 beats per minute with BiV pacing. REVIEW OF SYSTEMS: GENERAL: Please see HPI. He denies fever and chills. HEENT: There is no changing in vision, hearing, or swallowing. PULMONARY: Please see HPI. CARDIOVASCULAR: Please see HPI. Of note, there is no palpitation. There is no syncope. GI: He is eating well. : He is able to urinate quite a bit. NEUROLOGIC: There are no focal deficits or weaknesses. INTEGUMENT: There is continued left hand, left arm, left shoulder swelling due to thrombophlebitis. MUSCULOSKELETAL: He has some chronic back pain, but he is not complaining of that today. CURRENT CARDIAC MEDICATIONS: 1. Entresto 24/26 b.i.d. 2. Amiodarone 400 mg b.i.d. 3. Toprol-XL at 25 mg b.i.d. 4. Milrinone 0.5 mcg/kg/minute. 5. Lipitor 40 mg at bedtime. 6. Lasix 80 mg IV b.i.d. 7. K-Dur 40 mEq b.i.d. PHYSICAL EXAMINATION: Telemetry is reviewed. He is paced at a rate between 70 and 85. There are still PVCs occurring every 3rd to every 5th. When the pacing rate gets above 80 or 85 , the PVCs disappeared. VITAL SIGNS: Heart rate 90, blood pressure 119/64. GENERAL: He is sleepy, head elevated only about 20 degrees, but easily woken, alert, conversational, resting comfortably. JVP is not accurate, but probably around 12-13 cm. PULMONARY: Good air movement bilaterally, but there are some coarse breath sounds. There are no definite rales. CARDIAC: Regular rhythm most of the time. There is occasional irregularity. There is 2/6 holosystolic murmur at the apex with radiation to the left axilla. There is also right ventricular heave. ABDOMEN: Still distended with positive bowel sounds. His back and side have still pitting edema about 0.5 cm, but less so. EXTREMITIES: Lower extremity, he has about 1 cm pitting edema from left foot and about one third of way up, he has about 1 cm pitting edema from right foot about half way up. LE edema has decreased since yesterday. LABORATORY VALUES: Sodium 133, potassium 4.6, creatinine 1.53, total bilirubin 4.7. ASSESSMENT: A 58-year-old gentleman, resides in [employer] [employer] Class 3B heart failure with reduced ejection fraction . He has both systolic and diastolic dysfunction. This is a nonischemic cardiomyopathy. He is currently depending on milrinone at 0.5 mcg/kg/min IV GTT to sustain life and give him quality of life. This most likely will be long-term palliative care. There is some possibility that he has underlying sinus rhythm in the atrium. If this is there, that will be very helpful. Providing coordinated atrial pacing with Bi-V pacing that would be the best possibility. I will ask Dr. Liz to come by to visit him today to see if this is a possibility or if there is any other adjustment that could be made. The definitive therapy still remains with heart transplant. However, his social situation does not support even the start of evaluation. If the patient is able to gather family support for this, then we can transfer him to a center that can evaluate him for heart transplant evaluation. Otherwise, milrinone as a palliative care is the best we can do. RECOMMENDATIONS: 1. Continue milrinone 0.5 mcg/kg/minute IV GTT. 2. Refer to Electrophysiology, Dr. Liz, who will be coming by with a team to check for the underlying rhythm with combination of pacing inhibition and 12-lead ECG. 3. Please hold off Entresto for now. The patient needs some blood pressure back. 4. Please reduce Lasix to 80 mg IV once daily to see how he does with that. We want to retain his renal function as much as possible. 5. Continue to keep potassium above 4 and magnesium above 2. 6. If the patient continues to worsen, then we will need to consult Palliative Care with eventual transition to hospice plan. Hopefully, we will not get there. His pacer AICD was interrogated and reprogrammed at bedside. Going down to 70 did not help. At 80 beats per minute, there is still quite a bit of PVCs breaking through. Pacing at 85 beats per minute gave the longest sustained BiV pacing with minimal amount of PVC. He said he felt good with that, so I left it at this setting for today. It has been a pleasure taking care of Mr. Mónica Aldrich. If any question, please give me a call. Job ID: [id number] [facility]
--- NOTE | 2019-06-09 14:36 | CON ---
DATE OF CONSULTATION: 06/09/2019 HISTORY OF PRESENT ILLNESS: I am seeing Mr. Aldrich at our [facility] telemetry floor as an electrophysiology risk control consultant. His problems are: 1. Qwyok-xg-vmbdued systolic congestive heart failure as well as right ventricular failure due to nonischemic cardiomyopathy. a. Severely reduced LVEF with 2D echo on 03/09/2019 at 15% to 20% with dilated left atrium. b. Severe MR. c. Mild AI. d. Moderate right atrial enlargement. e. Rpbasdjg-dv-xysgim TR. f. RV systolic pressure of 80 mmHg. 2. History of chronic atrial fibrillation, on apixaban. 3. History of third-degree AV block. 4. History of ICD implant in 2011. a. Status post ICD extraction and reimplantation by Dr. Abdi on 10/26/2019 and subsequent reimplantation with a Medtronic Viva Quad Bi-V ICD with left atrial lead implanted. 5. Nonsustained ventricular tachycardia on ICD monitoring. 6. History of hypertension. 7. Iodine allergy. 8. History of hyperlipidemia. 9. GERD. 10. Microcytic anemia. 11. Hyperbilirubinemia. ALLERGIES: IODINE AND SPIRONOLACTONE. MEDICATIONS: At home, included: 1. Aspirin. 2. Cyclobenzaprine. 3. Dexlansoprazole (Dexilant). 4. Hydrocodone and acetaminophen. 5. Iron carbonyl (Feosol). 6. Atorvastatin. 7. Apixaban 5 mg twice a day. 8. Ipratropium. 9. Sucralfate. 10. Bumetanide 2 mg b.i.d. 11. Magnesium oxide. 12. Metoprolol succinate. 13. Potassium chloride. 14. Sacubitril. 15. Milrinone, managed by Dr. Aguilar. SUBJECTIVE: Mr. Aldrich was admitted with symptoms of czket-rn-iczahvu systolic congestive heart failure exacerbation. He is undergoing ongoing milrinone therapy by Dr. Aguilar. He is complaining of progressive dyspnea, swelling, and abnormal girth increase. He has no fever, chills, or cough at this point. He has no neurological deficits. He does not pass out. Since admission, he was attempted to have a left upper extremity PICC line placement and subsequently deep venous thrombosis in the basilic vein was noted. The ultrasound study performed on 06/06/2019 does reveal flow in the subclavian vein. Since implant, he continues on IV milrinone. He has not lost significant weight. REVIEW OF SYSTEMS: Rest of 12-point review of system otherwise unremarkable. SOCIAL HISTORY: He has a remote history of methamphetamine use, although denies current use. Quit smoking and EtOH abuse two months ago. FAMILY HISTORY: Significant for hypertension, coronary artery disease, and myocardial infarction. OBJECTIVE DATA: VITAL SIGNS: Blood pressure is 119/64, heart rate 91, respirations 20, and temperature 97.5 degrees Fahrenheit. GENERAL: This is an alert and oriented man, in no apparent distress. NECK: Supple. No jugular venous distended. CHEST: Coarse without crackles. Right subclavian ICD insertion site is healed well. Scars of prior left subclavian ICD insertion site are noted. ABDOMEN: Somewhat distended. EXTREMITIES: The lower extremities with 2+ bilateral edema. Pulses are diminished. No cyanosis noted. NEUROLOGIC: The patient is nonfocal. MUSCULOSKELETAL: Without joint swelling, but lower extremity swelling is seen. SKIN: Without rash. DATABASE: Chest x-ray is reviewed, reveals CHF like changes and cardiomegaly. A right-sided biventricular ICD in place, Medtronic device, with a right ventricular and a left ventricular CS lead in place in appropriate positions. The ICD interrogation reviewed, performed this morning, revealed a Medtronic Viva Quad SE[employer]-D device with nonsustained VT episodes noted on 06/01 lasting about 1 to 2 seconds. Bi-V pacing appears to be somewhat suboptimal, but the atrial lead is not implanted. LABORATORY DATA: White cell count is 9.6, hemoglobin 11.3, and platelet count is 142. Sodium 132, potassium 4.6, BUN is 20, creatinine 1.53. AST and ALT of 27 and 12. Troponin-I's are 0.124, 0.139, and 0.137. BNP is initially 1298, 883 consecutively. ASSESSMENT AND PLAN: 1. Mr. Aldrich is a pleasant 58-year-old man with a history of nonischemic cardiomyopathy, remote history of methamphetamine use, who has also chronic atrial fibrillation and complete AV block by history. He has been seen and evaluated by my partners back in 10/2015, at which point his previously placed ICD site since have eroded leads were extracted, eventually his device was re-implanted on the right side. He had a recent hospitalization for influenza and developed torsade like tachycardia, which was successfully shock terminated. Since then, he has been placed on amiodarone, hence, recurrent episodes of nonsustained VT. For now, no more sustained VT recurrence is seen. The torsade like arrhythmia was in the setting of hypomagnesemia and currently his magnesium levels are better compensated at 2. I was consulted by Dr. Aguilar for evaluation of his ICD function and potential consideration for restoring AV synchrony. As I discussed with Dr. Aguilar, hence the history of chronic atrial fibrillation and biatrial enlargement, maintaining sinus rhythm is not very likely in this gentleman. Now that he is receiving amiodarone, after subsequent loading, he may have a potential chance for maintaining sinus rhythm, although this still remains slim. After subsequent loading has occurred, an attempt at cardioversion could be considered. Should he maintain sinus rhythm after that and shinto of AV synchrony required, atrial lead upgrade could be contemplated. Hence, recent flu-like illness, continue fluid overload at this point, though we will continue conservative management. Monitor for QT prolongation and torsade-like arrhythmias, increasing ventricular rate to avoid annalisa related torsade rhythms. Also, maintenance of potassium and magnesium level over 4 and 2 is prudent. Avoidance of QT prolonging agents should be made. 2. High CHADS-VASc score with congestive heart failure, hypertension, vascular disease, on Eliquis, especially in view of the recently found deep vein thrombosis in the basilic vein on the left side. 3. Biventricular implantable cardiac defibrillator with adequate function, though atrial lead not implanted for a 30-month longevity. Continue routine monitoring. Again, consider atrial lead upgrade if maintenance of sinus rhythm is demonstrated after full amiodarone loading. 4. Cdcxu-tg-cyrlwsz congestive heart failure as per Dr. Aguilar. Continue with milrinone therapy. 5. History of torsade like ventricular tachycardia. Monitor QT and avoid hypokalemia and hypomagnesemia. 6. History of polysubstance abuse. Continue abstinence. Job ID: [id number]
--- NOTE | 2019-06-09 14:51 | PDOC.BPN ---
- Brief Progress Note Spoke to patient about prognosis. He reiterated to me he does not want a heart transplant because it would put too much strain on his family. He wants to continue the milrinone medication and says he might want to consider a transplant in the future, but not at the present time. When speaking to the patient about palliative care, he does not want any service which "walks him to ." Informed patient of palliative care's ability to improve quality of life, to prevent readmissions, and to increase length of life in many cases. Patient wishes to remain full code. Spoke w/ Massiel, palliative nurse, who said palliative can help w/ disease- assistance and is willing to talk to patient about that. Also informed me [facility] does accept patients w/ milrinone but they do not titrate the dose. Pallative consult placed.
[2019-06-09] MEDS: Atorvastatin Calcium 40 MG TAB PO SCH (20:30)
--- NOTE | 2019-06-09 21:44 | EKG ---
Test Reason : Blood Pressure : / mmHG Vent. Rate : 077 BPM Atrial Rate : 042 BPM P-R Int : 000 ms QRS Dur : 176 ms QT Int : 518 ms P-R-T Axes : 000 257 072 degrees QTc Int : 586 ms Demand pacemaker; interpretation is based on intrinsic rhythm Right bundle branch block Septal infarct , age undetermined Abnormal ECG When compared with ECG of 06-JUN-2019 16:04, (Unconfirmed) Confirmed by JOSE MANUEL SMITH, SMargarita ([id number]) on 06/09/2019 9:44:13 PM Referred By: TORIN Confirmed By:DR. Basilio RICHARD MD
[2019-06-10 04:58] LABS: ALT (SGPT) 12 U/L (8-55); AST (SGOT) 29 U/L (5-34); Albumin 3.1 g/dL (3.5-5.0); Alkaline Phosphatase 146 U/L (40-110); Anion Gap 14 mmol/L (10-20); BUN (Urea Nitrogen) 23 mg/dL (8.4-25.7); Bilirubin, Total 4.2 mg/dL (0.2-1.2); Calc. Creatinine Clearance 76 mL/min (70-130); Calcium 9.4 mg/dL (7.8-10.44); Carbon Dioxide 22 mmol/L (22-29); Chloride 101 mmol/L (98-107); Estimated GFR-MDRD 59; Globulin 4.1 g/dL (2.4-3.5); Glucose 106 mg/dL (70-105); Magnesium 1.8 mg/dL (1.6-2.6); Potassium 5.2 mmol/L (3.5-5.1); Protein, Total 7.2 g/dL (6.0-8.3); Sodium 132 mmol/L (136-145)
[2019-06-10] MEDS: Amiodarone 200 MG TAB PO SCH ×2 (08:50→20:58)
[2019-06-10] MEDS: Magnesium Oxide 400 MG TAB PO SCH ×2 (08:51→20:58)
[2019-06-10] MEDS: Ferrous Sulfate 325 MG TAB PO SCH (08:51)
[2019-06-10] MEDS: Amoxicillin/Potassium Clav 875 MG TAB PO SCH ×2 (08:51→20:58)
[2019-06-10] MEDS: Apixaban 5 MG TAB PO SCH ×2 (08:51→20:59)
[2019-06-10] MEDS: Sucralfate 1 GM TAB PO SCH ×4 (08:51→20:58)
[2019-06-10] MEDS: Aspirin 81 mg Enteric Coated Tablet PO SCH (08:51)
[2019-06-10] MEDS: Potassium Chloride 20 MEQ TAB PO SCH (08:52)
[2019-06-10] MEDS ORDERED: Furosemide 100 MG/10 ML VIAL SLOW IVP SCH ×2 (09:00→21:00)
[2019-06-10] MEDS: HYDROcodone/Acetaminophen 10/325 mg Tablet PO PRN ×2 (09:16→20:55)
--- NOTE | 2019-06-10 10:51 | PDOC.FM ---
- Subjective Subjective: Feeling better today, decreased SOB. Not requiring O2. - Objective MAR Reviewed: Yes Vital Signs & Weight: Vital Signs (12 hours) Temp Pulse Resp BP Pulse Ox 06/10/19 07:21 97.6 F 90 18 112/59 L 93 L 06/10/19 03:48 97.6 F 94 19 130/74 95 06/10/19 02:07 93 16 95 Weight Weight 102.058 kg I&O: 06/09/19 06/10/19 06/11/19 06:59 06:59 06:59 Intake Total 1028 1360 Output Total 1625 1450 Balance -597 -90 Result Diagrams: 06/08/19 04:11 06/10/19 04:11 Phys Exam - Physical Examination Constitutional: NAD HEENT: moist MMs Neck: supple Respiratory: no wheezing Cardiovascular: RRR Gastrointestinal: soft Musculoskeletal: pulses present Right UE edema Neurological: moves all 4 limbs Psychiatric: normal affect, A&O x 3 Skin: normal turgor Dx/Plan - Plan Plan: 58yo male with pmh of systolic/diastolic CHF, chronic afib s/p pacemaker admitted for acute CHF exacerbation Acute on chronic systolic/diastolic CHF exacerbation, improving - Continue Lasix 80mg BID. Increased milrinone today. Max dose is 75 mcg/kg/ minute. - Consulted Dr. Aguilar-appreciate recs. Continue Amiodarone 400 mg BID - Definitive therapy is heart transplant. Pt does not have social support to undergo the operation. LUE thrombus - Continue home eliquis Chronic afib s/p pacemaker - Continue eliquis QTC prolongation - Avoid QTC prolonging meds - Hx of Torsades in last hospitalization - Keep K >4, Mag >2, will replete prn HLD/HTN - Continue home meds DVT ppx: Eliquis CodeStatus: Full PCP: Doni Addendum - Attending - Attending Attestation Date/Time: 06/10/19 [id number] I personally evaluated the patient and discussed the management with Dr. Florence I agree with the History, Examination, Assessment and Plan documented above with any addition or exceptions noted below- Patient reports decreased SOB; able to move around more easily. Afebrile VSS. A/P: 1) CHF - on milarone; case d /w Dr. Aguilar. Continue lasix and monitor electrolytes. 2) Nonischemic cardiomyopathy - continue current care.
--- NOTE | 2019-06-10 12:33 | PDOC.PALCO ---
Palliative Care Consult - Consult Details Requesting Physician: Dr Montero Reason for Consult: goals of care, assistance with communication prognosis/ disease, complex decision-making Family Members Present: None - Pertinent HPI 58 year old male who is familiar to the palliative care program. Resides in private setting on [facility]. He experienced a sudden onset of shortness of breath with no relieving factors. Called EMS for transport and evaluation in the emergency room. Identified to have acute exacerbation of CHF and elevated troponin. He is followed by Dr Aguilar for his heart failure. It has been identified that only successful treatment option is currently a heart transplant , however secondary to poor social system and family support that is required for consideration patient is not a candidate. - Pertinent PMH Combined heart failure, HDL, Atrial Fib, GERD, anemia, HTN, Gout - Social History Smoking Status: Former smoker Smoking: quit less than 1 year (States he quit around "2 months ago") Alcohol Use: other (Quit drinking " around 2 months ago") Living Situation: independent - Medications MAR Reviewed: Yes - Allergies Allergies/Adverse Reactions: Allergies Allergy/AdvReac Type Severity Reaction Status Date / Time iodine Allergy Mild Hives Verified 06/06/19 21:05 spironolactone Allergy Verified 06/06/19 21:05 - Subjective Awake, alert. Oriented. Denies shortness of breath, chest pain. - ROS Constitutional: other (denies weight changes, chills) Eyes: other (denies changes in vision) ENT: other (denies difficulity swallowing, congestion) Respiratory: shortness of breath with extertion, other Cardiology: other (negative for chest pain, palpitations) Gastrointestinal: other (negative for nausea, vomiting, diarrhea) Genitourinary: other (denies dysuria, hematuria) Musculoskeletal: arthritis/arthralgias Skin: other (denies rash, puritis) - Objective Vital Signs: Vital Signs - Most Recent Temp Pulse Resp BP Pulse Ox 98.0 F 87 18 131/62 92 L 06/10/19 11:59 06/10/19 11:59 06/10/19 11:59 06/10/19 11:59 06/10/19 11:59 Palliative Performance Scale: 50 - Physical Exam Constitutional: NAD HEENT: EOMI, moist MMs Respiratory: no wheezing, unlabored breathing Cardiovascular: RRR Gastrointestinal: non-tender, positive bowel sounds Genitourinary: continent Musculoskeletal: no cyanosis, edema present Neurology: moves all 4 limbs, no focal deficits Skin: cap refill <2 seconds, no lesions, no rash Psychiatric: A&O x 3, depressed, flat affect - Problem List (1) Palliative care encounter Code(s): Z51.5 - ENCOUNTER FOR PALLIATIVE CARE Current Visit: Yes Status: Acute (2) Acute and chronic respiratory failure with hypoxia Code(s): J96.21 - ACUTE AND CHRONIC RESPIRATORY FAILURE WITH HYPOXIA Current Visit: No Status: Acute (3) Acute exacerbation of CHF (congestive heart failure) Code(s): I50.9 - HEART FAILURE, UNSPECIFIED Current Visit: No Status: Acute Qualifiers: Heart failure type: systolic Qualified Code(s): I50.23 - Acute on chronic systolic (congestive) heart failure (4) Chronic atrial fibrillation Code(s): I48.2 - CHRONIC ATRIAL FIBRILLATION * DO NOT USE * Current Visit: No Status: Chronic (5) Elevated troponin Code(s): R74.8 - ABNORMAL LEVELS OF OTHER SERUM ENZYMES Current Visit: No Status: Chronic (6) GERD (gastroesophageal reflux disease) Code(s): K21.9 - GASTRO-ESOPHAGEAL REFLUX DISEASE WITHOUT ESOPHAGITIS Current Visit: No Status: Chronic Qualifiers: Esophagitis presence: without esophagitis Qualified Code(s): K21.9 - Gastro -esophageal reflux disease without esophagitis (7) Macrocytic anemia Code(s): D53.9 - NUTRITIONAL ANEMIA, UNSPECIFIED Current Visit: No Status: Chronic (8) Nonischemic cardiomyopathy Code(s): I42.9 - CARDIOMYOPATHY, UNSPECIFIED Current Visit: No Status: Chronic - Plan/Recommendations Plan: Lengthy conversation in relation to Goal of Care. Discussed disease trajectory related to heart failure and multiple morbidities. Patient shared his frustration in lack of family support that prevents his ability to be considered for a heart transplant. He does not want to come back to the hospital. Discussed option of Hospice, and that there are companies that will follow him in the home setting with milluisone and manage symptoms to maintain comfort and quality of life. Also revisited resuscitation status, he states he "does not want anything else done" but will talk to his sister prior to transition to DNAR status. Stated he wants to travel to [place] "to get away" and not be a burden to his family. Will communicate with Dr Florence and ensure spiritual care consult in place. Discussed safety in home setting to manage shortness of breath, safety to prevent falls. Introduced measures to maintain healthy environment and prevent risk for infection specifically Covid19. [75] minutes spent on this encounter with >50% of the time in counseling and coordination of care. Thank you for this very appropriate consult.
--- NOTE | 2019-06-10 14:06 | PDOC.EP ---
- Subjective Date: 06/10/19 Time: 09:00 Interval History: follow up for atrial fibrillation, ICD management, and consideration of atrial lead addition. Mr Aldrich voices no new complaints this AM. He is diuresing and loading on amiodarone. Denies ICD shocks. - Review of Systems Constitutional: denies: chills, fever, malaise Respiratory: reports: shortness of breath, SOB with excertion. denies: cough, sputum, wheezing Cardiology: denies: chest pain, edema, heart racing, light headedness, orthopnea Gastrointestinal: denies: abdominal pain, constipation, diarrhea - Objective Allergies/Adverse Reactions: Allergies Allergy/AdvReac Type Severity Reaction Status Date / Time iodine Allergy Mild Hives Verified 06/06/19 21:05 spironolactone Allergy Verified 06/06/19 21:05 Current Medications Acetaminophen (Tylenol) 650 mg PO Q4H PRN PRN Reason: Headache/Fever/Mild Pain (1-3) Hydrocodone Bitart/Acetaminophen ([place] 10/325) 1 tab PO Q4H PRN PRN Reason: Moderate Pain (4-6) Last Admin: 06/10/19 09:16 Dose: 1 tab Albuterol/Ipratropium (Duoneb) 3 ml NEB QID PRN PRN Reason: Wheezing Last Admin: 06/10/19 02:07 Dose: 3 ml Amiodarone HCl (Cordarone) 400 mg PO BID [facility] Last Admin: 06/10/19 08:50 Dose: 400 mg Amoxicillin/Clavulanate Potassium (Augmentin) 875 mg PO BID [facility] Last Admin: 06/10/19 08:51 Dose: 875 mg Apixaban (Eliquis) 5 mg PO BID [facility] Last Admin: 06/10/19 08:51 Dose: 5 mg Aspirin (Ecotrin) 81 mg PO DAILY [facility] Last Admin: 06/10/19 08:51 Dose: 81 mg Atorvastatin Calcium (Lipitor) 40 mg PO HS [facility] Last Admin: 06/09/19 20:30 Dose: 40 mg Cyclobenzaprine HCl (Flexeril) 10 mg PO DAILY PRN PRN Reason: Muscle Pain Ferrous Sulfate (Feosol) 325 mg PO DAILY [facility] Last Admin: 06/10/19 08:51 Dose: 325 mg Furosemide (Lasix) 80 mg SLOW IVP BID [facility] Milrinone Lactate 20 mg/ (Sodium Chloride) 100 mls @ 0 mls/hr IVPB INF [facility]; Protocol Last Admin: 06/10/19 09:13 Dose: 100 mls Magnesium Oxide (Magnesium Oxide) 400 mg PO BID [facility] Last Admin: 06/10/19 08:51 Dose: 400 mg Metoprolol Succinate (Toprol Xl) 25 mg PO BID [facility] Last Admin: 06/10/19 08:51 Dose: 25 mg Pantoprazole Sodium (Protonix) 40 mg PO DAILY [facility] Last Admin: 06/10/19 08:51 Dose: 40 mg Potassium Chloride (K-Dur) 20 meq PO BID[facility] Sodium Chloride (Flush - Normal Saline) 10 ml IVF Q12HR [facility] Last Admin: 06/10/19 08:51 Dose: Not Given Sodium Chloride (Flush - Normal Saline) 10 ml IVF PRN PRN PRN Reason: Saline Flush Sucralfate (Carafate) 1 gm PO QID [facility] Last Admin: 06/10/19 08:51 Dose: 1 gm Zinc Acetate/Diphenhydramine (Benadryl 2% Cream) 1 gm TOP QID PRN PRN Reason: Itching Last Admin: 06/09/19 19:11 Dose: 1 applic Vital Signs & Weight: Vital Signs Temp Pulse Resp BP Pulse Ox 06/10/19 11:59 98.0 F 87 18 131/62 92 L 06/10/19 07:21 97.6 F 90 18 112/59 L 93 L 06/10/19 03:48 97.6 F 94 19 130/74 95 06/10/19 02:07 93 16 95 Weight 225 lb I/O: I/O 06/09/19 06/10/19 06/11/19 06:59 06:59 06:59 Intake Total 1028 1360 Output Total 1622 2210 Balance -597 -90 - Quality Measures Condition: Atrial Fibrillation/Flutter (hx or current) CV meds: Eliquis: Yes - Physical Exam General: alert & oriented x3, no apparent distress, speech clear HEENT: mucus membranes moist, normocephaly Neck: supple neck, midline trachea, JVD/HJR Cardiology: irregularly irregular. negative: tachycardia, bradycardia Lungs: no wheezes, no rhonchi, decreased breath sounds Neurology: cranial nerve 2-12 intact, grossly intact, coordination normal - Labs Result Diagrams: 06/08/19 04:11 06/10/19 04:11 - EKG Interpretation EKG Method: Telemetry EKG shows: Atrial fibrillation - Device Device: biventricular, defibrillator - Assessment/Plan Assessment/Plan: 1. [id number]-[id number] systolic congestive heart failure as well as right ventricular failure due to nonischemic cardiomyopathy. a. Severely reduced LVEF with 2D echo on 03/09/2019 at 15% to 20% with dilated left atrium. b. Severe MR. c. Mild AI. d. Moderate right atrial enlargement. e. Dphckuob-fq-qacdyw TR. f. RV systolic pressure of 80 mmHg. 2. Chronic atrial fibrillation, -OAC with apixaban. 3. Third-degree AV block. 4. ICD implant in 2011. a. Status post left ICD extraction and right side reimplantation by Dr. Abdi on 10/26/2015 and with a Medtronic Viva Quad Bi-V ICD b. suboptimal [employer] pacing on interrogation 5. TdP, VT - in the setting of hypomagnesemia As I discussed with Dr. Aguilar, hence the history of chronic atrial fibrillation and biatrial enlargement, maintaining sinus rhythm is not very likely in this gentleman. Should he demostrate he is maintaining sinus rhythm after that and scientologist of AV synchrony required, atrial lead upgrade could be contemplated at that time. Monitor for QT prolongation and torsade-like arrhythmias, increasing ventricular rate to avoid annalisa related torsade rhythms. Maintenance of potassium and magnesium level over 4 and 2 respectively is advisable. K+ 5.2 and Mg 1.8 today. Avoidance of QT prolonging agents should be made. Continue Eliquis for OAC
--- NOTE | 2019-06-10 14:08 | PRG ---
DATE OF SERVICE: 06/10/2019 This is from [facility]. SUBJECTIVE: Mr. Mónica Aldrich had a good day. Pacemaker was interrogated and reprogrammed at bedside. Through adjustments, 85 beats per minute as the lower limit was set. At that rate, together with the Toprol-XL and amiodarone, he was able to be paced majority of time to apparently greater than 80% of time, and he was able to sustain that for overnight. He said he has felt stronger and better with that; however, his Lasix was reduced to just once a day due to rising creatinine just daily to recover renal function. Overnight, he says he was able to sleep well; however, he does notice that it seems like he is gaining a little bit more fluid around the abdomen. REVIEW OF SYSTEMS: GENERAL: There is no fever, chills or productive cough. HEENT: There is no change in vision, hearing or swallowing. PULMONARY: See HPI. CARDIOVASCULAR: Please see HPI. There is no palpitation or syncope. GI: He is able to eat well. : He is able to urinate well without difficulty. NEUROLOGIC: There are no focal deficits or weakness. MUSCULOSKELETAL: He does not complain of any joint pains. INTEGUMENT: He still has swelling and pain in the left forearm and left shoulder , but less so. PSYCHIATRIC: He is not depressed, but he is sad about the current situation. CURRENT MEDICATIONS: 1. Magnesium oxide 400 mg b.i.d. 2. Amiodarone 400 mg b.i.d. 3. Apixaban 5 mg b.i.d. 4. Toprol-XL 25 mg q.12 hours. 5. Milrinone currently at 0.5 mcg/kg/min. 6. Atorvastatin 40 mg at bedtime. 7. Lasix IV 80 mg daily. 8. Aspirin 81 mg daily. 9. Potassium 40 mEq twice a day. Telemetry was reviewed after the pacemaker adjustment. He is mainly in paced rhythm of 85. PHYSICAL EXAMINATION: VITAL SIGNS: Paced at 85. Blood pressure 125/70. GENERAL: He is alert, conversational, able to stand up and walk a few steps without any difficulty. HEENT: EOMI, PERRL. Oropharynx benign. There is no erythema. NECK: JVP is still high, about 14 cm just right below the earlobe. PULMONARY: Good air movement bilaterally; however, there are slight bibasilar crackles recurring. CARDIAC: Heart is regular rate and rhythm. His heart sounds are distant today. Normal S1 and S2. There is 2/6 holosystolic murmur at the apex with radiation to the left axilla. There is somewhat a palpable right ventricular heave. ABDOMEN: Distended, but soft and nontender. Positive bowel sounds. EXTREMITIES: Lower extremity has about 1 cm pitting edema on right from feet to one-third way above ankle and about 0.5 cm pitting edema from the left foot about half way up toward the knees, so he has more edema on the right lower extremity than the left lower extremity. LABORATORY DATA: Sodium 132, potassium 5.2, BUN 23, and creatinine 1.49. On the good side, his total bilirubin has decreased down to 4.2. ASSESSMENT: This is a 58-year-old gentleman, resides in [place] Heart Association class IIIB heart failure with reduced ejection fraction. He has both systolic and diastolic dysfunction. Worse, he has right ventricular failure too. This makes his overall situation very difficult. The only possible long- term solution will be heart transplant. We discussed again this today. Again, he repeated there is no family support for him for this. He would have required to have some member or family to stay with him for 30 days post discharge, unfortunately he is not able to muster such support. He is currently volume overloaded. His sodium is decreasing. Consequently, he is getting a bit worse. So, we have no choice but increase inotropic support to support more diuresis. At this point, the only possible long-term outcome is increasing milrinone to the max dose, possible transition to Palliative Care. When kidneys shut down, then he goes on hospice. We will try to keep him as comfortable as possible. Please see the following for recommendations. RECOMMENDATIONS" 1. Increase milrinone to 0.6 mcg/kg/min IVGTT, I will come back tomorrow and may need to increase this to 0.75 tomorrow. 2. Resume Lasix 80 mg IV b.i.d. 3. Decrease the potassium supplement to 20 mEq b.i.d. for now, this may need to go up again. 4. Please keep magnesium as close to 2.0 as much as possible. 5. Please consult Palliative Care and also work with Home Health that has hospice option, this gentleman does not have long to live. It has been a pleasure to take care of Mr. Aldrich. It is unfortunate that he does not have family support that could allow transition to a heart plan evaluation at different center. Thus, the best we can do is palliative care and keep him comfortable. Job ID: [id number] MTDD
--- NOTE | 2019-06-10 14:40 | ULT ---
LEFT UPPER EXTREMITY VENOUS DOPPLER ULTRASOUND: Date: 06/10/2019 COMPARISON: 06/06/2019. HISTORY: Left upper extremity edema, swelling, assess for deep venous thrombosis. TECHNIQUE: Multiplanar Tyler scale sonographic imaging of the venous structures of the left upper extremity obtai tiffany with color flow and spectral analysis. FINDINGS: There is compressible echogenic material within the left internal jugular vein, as seen on the prior examination. This suggests very slow venous blood flow within the left internal jugular vein. However , no evidence for acute clot within the left internal jugular vein is present. Left subclavian vein and left axillary vein appear patent. The left brachial vein is patent. There is soft tissue edema overlying the left brachial vein. Left cephalic vein in antecubital fossa is patent and demonstrates adjacent soft tissue edema. Left b asilic vein is patent as well. Left ulnar vein and left radial vein are patent. No evidence for deep venous thrombosis. A short segment venous thrombus within the left basilic vein was noted on the prior examination, not seen on this examination suggesting interval resolution. IMPRESSION: No evidence for deep venous thrombosis within the left upper extremity. Please see above discussion. POS: [facility]
[2019-06-10] MEDS: Atorvastatin Calcium 40 MG TAB PO SCH (20:57)
[2019-06-10] MEDS: Furosemide 100 MG/10 ML VIAL SLOW IVP SCH (20:59)
--- NOTE | 2019-06-10 23:33 | ULT ---
ULTRASOUND SCROTUM AND TESTICLES DOPPLER DUPLEX: DATE: 06/10/2019 HISTORY: 58-year-old male with severe scrotal pain TECHNIQUE: Grayscale evaluation of intrascrotal contents. Color flow Doppler and spectral waveform analysis of t he testicles. FINDINGS: Right testicle: 2.8 x 3.7 x 1.9 cm Left testicle: 3.9 x 3.9 x 2.1 cm Right epididymal head: 1.3 x 0.9 cm Left epididymal head: 1.4 x 1.0 cm Testicular echogenicity: Normal Testicular blood flow:Bilaterally symmetrical Intratesticular mass:None Hydrocele:Tiny bilateral Varicocele:Prominent bilaterally, left greater than right IMPRESSION: Prominent bilateral varicoceles, left greater than right.
[2019-06-10] MEDS: diphenhydrAMINE 30 GM TUBE TOP PRN (23:51)
[2019-06-11 04:53] LABS: ALT (SGPT) 12 U/L (8-55); AST (SGOT) 33 U/L (5-34); Albumin 3.2 g/dL (3.5-5.0); Alkaline Phosphatase 134 U/L (40-110); Anion Gap 13 mmol/L (10-20); BUN (Urea Nitrogen) 20 mg/dL (8.4-25.7); Bilirubin, Total 4.8 mg/dL (0.2-1.2); Calc. Creatinine Clearance 83 mL/min (70-130); Calcium 9.9 mg/dL (7.8-10.44); Carbon Dioxide 26 mmol/L (22-29); Chloride 99 mmol/L (98-107); Estimated GFR-MDRD 63; Globulin 4.3 g/dL (2.4-3.5); Glucose 108 mg/dL (70-105); Magnesium 1.6 mg/dL (1.6-2.6); Potassium 4.5 mmol/L (3.5-5.1); Protein, Total 7.5 g/dL (6.0-8.3); Sodium 133 mmol/L (136-145)
--- NOTE | 2019-06-11 06:41 | PDOC.FM ---
- Subjective Subjective: Testicular pain overnight, US showed b/l varicoceles. He reported pain resolved after passing gas. He is tired this morning but feels better. - Objective MAR Reviewed: Yes Vital Signs & Weight: Vital Signs (12 hours) Temp Pulse Resp BP Pulse Ox 06/11/19 03:38 97.4 F L 88 19 123/60 95 06/10/19 19:38 97.8 F 86 20 120/64 96 Weight Weight 101.242 kg I&O: 06/09/19 06/10/19 06/11/19 06:59 06:59 06:59 Intake Total 1028 1360 1908 Output Total 1625 1450 4585 Balance -247 -90 -967 Result Diagrams: 06/08/19 04:11 06/11/19 04:16 Phys Exam - Physical Examination Constitutional: NAD HEENT: moist MMs Neck: supple Respiratory: no wheezing, clear to auscultation bilateral Cardiovascular: RRR Gastrointestinal: soft, non-tender left UE edema Neurological: moves all 4 limbs Psychiatric: normal affect Dx/Plan - Plan Plan: 58yo male with pmh of systolic/diastolic CHF, chronic afib s/p pacemaker admitted for acute CHF exacerbation Acute on chronic systolic/diastolic CHF exacerbation, improving - Continue Lasix 80mg BID. Continue milrinone. Max dose is 75 mcg/kg/minute. - Consulted Dr. Aguilar-appreciate recs. Continue Amiodarone 400 mg BID - Definitive tx is heart transplant. Pt does not have social support to undergo the operation. LUE thrombus - Continue home Eliquis Chronic afib s/p pacemaker - Continue Eliquis QTC prolongation - Avoid QTC prolonging meds - Hx of Torsades in last hospitalization - Keep K >4, Mag >2 HLD/HTN - Continue home meds DVT ppx: Eliquis CodeStatus: Full PCP: Doni Addendum - Attending - Attending Attestation Date/Time: 06/11/19 0598 I personally evaluated the patient and discussed the management with Dr. Florence I agree with the History, Examination, Assessment and Plan documented above with any addition or exceptions noted below - Patient without complaints. Afebrile VSS A/P: 1) Acute on chronic CHF - weight down 1 kg and 1L negative balance. Continue IV lasix and milrinone. 2) CKD- stable. 3) Hypokalemia- stable , 4) Hypomagnesemia- replacing magnesium.
[2019-06-11] MEDS ORDERED: Magnesium Sulfate 2 GM in Sodium Chloride 0.9% 100 ML IVPB SCH (07:00)
[2019-06-11] MEDS ORDERED: Magnesium 2 GM/50 ML 2 GM in Premix Bag 1 BAG IVPB SCH (07:15)
[2019-06-11] MEDS: Milrinone Lactate/D5W 20 MG in Premix Bag 1 BAG IVPB SCH ×3 (08:28→20:07)
[2019-06-11] MEDS: Apixaban 5 MG TAB PO SCH ×2 (08:30→20:08)
[2019-06-11] MEDS: Amiodarone 200 MG TAB PO SCH ×2 (08:30→20:08)
[2019-06-11] MEDS: Aspirin 81 mg Enteric Coated Tablet PO SCH (08:30)
[2019-06-11] MEDS: Potassium Chloride 20 MEQ TAB PO SCH ×2 (08:30→17:33)
[2019-06-11] MEDS: Ferrous Sulfate 325 MG TAB PO SCH (08:30)
[2019-06-11] MEDS: Amoxicillin/Potassium Clav 875 MG TAB PO SCH ×2 (08:30→20:08)
[2019-06-11] MEDS: Sucralfate 1 GM TAB PO SCH ×4 (08:31→20:08)
[2019-06-11] MEDS: Magnesium Oxide 250 MG TAB PO SCH ×4 (08:31→20:08)
[2019-06-11] MEDS: Furosemide 100 MG/10 ML VIAL SLOW IVP SCH ×2 (08:31→20:08)
[2019-06-11] MEDS ORDERED: Furosemide 100 MG/10 ML VIAL SLOW IVP SCH (09:00)
--- NOTE | 2019-06-11 11:08 | PDOC.PALPN ---
Palliative Progress Note - Subjective Awake, watching TV. Denies complaints and wishes to return to the home setting. - Objective Vital Signs: Vital Signs - Most Recent Temp Pulse Resp BP Pulse Ox 98.3 F 88 20 116/57 L 93 L 06/11/19 07:41 06/11/19 07:41 06/11/19 07:41 06/11/19 07:41 06/11/19 07:45 - Physical Exam Constitutional: NAD HEENT: EOMI, moist MMs Respiratory: unlabored breathing Gastrointestinal: continent Genitourinary: continent Musculoskeletal: no cyanosis Neurology: moves all 4 limbs Skin: cap refill <2 seconds Psychiatric: A&O x 3 - Assessment (1) Palliative care encounter Code(s): Z51.5 - ENCOUNTER FOR PALLIATIVE CARE Current Visit: Yes Status: Acute (2) Acute and chronic respiratory failure with hypoxia Code(s): J96.21 - ACUTE AND CHRONIC RESPIRATORY FAILURE WITH HYPOXIA Current Visit: No Status: Acute (3) Acute exacerbation of CHF (congestive heart failure) Code(s): I50.9 - HEART FAILURE, UNSPECIFIED Current Visit: No Status: Acute Qualifiers: Heart failure type: systolic Qualified Code(s): I50.23 - Acute on chronic systolic (congestive) heart failure (4) Chronic atrial fibrillation Code(s): I48.2 - CHRONIC ATRIAL FIBRILLATION * DO NOT USE * Current Visit: No Status: Chronic (5) Elevated troponin Code(s): R74.8 - ABNORMAL LEVELS OF OTHER SERUM ENZYMES Current Visit: No Status: Chronic (6) GERD (gastroesophageal reflux disease) Code(s): K21.9 - GASTRO-ESOPHAGEAL REFLUX DISEASE WITHOUT ESOPHAGITIS Current Visit: No Status: Chronic Qualifiers: Esophagitis presence: without esophagitis Qualified Code(s): K21.9 - Gastro -esophageal reflux disease without esophagitis (7) Macrocytic anemia Code(s): D53.9 - NUTRITIONAL ANEMIA, UNSPECIFIED Current Visit: No Status: Chronic (8) Nonischemic cardiomyopathy Code(s): I42.9 - CARDIOMYOPATHY, UNSPECIFIED Current Visit: No Status: Chronic - Plan Plan: Goals of Care *Continue with Milrinone gtt *Discharge to home *Continue with resuscitative measures *Not interested in Hospice or further discussing [facility] Palliative Care will sign off, if we are needed in the future to revisit goals of care, complex decision making, disease prognosis assist, symptom management, or advance directives please let us know. [20] minutes spent on this encounter with >50% of the time in counseling and coordination of care. - ROS Constitutional: alert ENT: other (negative for congestion, throat pain/discomfort) Respiratory: other (denies shortness of breath, cough) Cardiology: other (denies chest pain) Gastrointestinal: other (denies constipation, nausea)
--- NOTE | 2019-06-11 13:59 | PDOC.EP ---
- Subjective Date: 06/11/19 Time: 13:58 Interval History: follow up for atrial fibrillation, ICD management, and consideration of atrial lead addition. Mr Aldrich voices no new complaints this AM. He is diuresing and loading on amiodarone. Denies ICD shocks. Very much wants to go home. - Review of Systems Constitutional: denies: chills, fever, malaise, sweats, weakness, other Respiratory: denies: cough, shortness of breath, SOB with excertion, sputum, wheezing Cardiology: denies: chest pain, edema, heart racing, light headedness, passing out Gastrointestinal: denies: abdominal pain, constipation, diarrhea - Objective Allergies/Adverse Reactions: Allergies Allergy/AdvReac Type Severity Reaction Status Date / Time iodine Allergy Mild Hives Verified 06/06/19 21:05 spironolactone Allergy Verified 06/06/19 21:05 Current Medications Acetaminophen (Tylenol) 650 mg PO Q4H PRN PRN Reason: Headache/Fever/Mild Pain (1-3) Hydrocodone Bitart/Acetaminophen ([place] 10/325) 1 tab PO Q4H PRN PRN Reason: Moderate Pain (4-6) Last Admin: 06/10/19 20:55 Dose: 1 tab Albuterol/Ipratropium (Duoneb) 3 ml NEB QID PRN PRN Reason: Wheezing Last Admin: 06/10/19 02:07 Dose: 3 ml Amiodarone HCl (Cordarone) 400 mg PO BID [facility] Last Admin: 06/11/19 08:30 Dose: 400 mg Amoxicillin/Clavulanate Potassium (Augmentin) 875 mg PO BID [facility] Last Admin: 06/11/19 08:30 Dose: 875 mg Apixaban (Eliquis) 5 mg PO BID [facility] Last Admin: 06/11/19 08:30 Dose: 5 mg Aspirin (Ecotrin) 81 mg PO DAILY [facility] Last Admin: 06/11/19 08:30 Dose: 81 mg Atorvastatin Calcium (Lipitor) 40 mg PO HS [facility] Last Admin: 06/10/19 20:57 Dose: 40 mg Cyclobenzaprine HCl (Flexeril) 10 mg PO DAILY PRN PRN Reason: Muscle Pain Last Admin: 06/10/19 20:56 Dose: 10 mg Ferrous Sulfate (Feosol) 325 mg PO DAILY [facility] Last Admin: 06/11/19 08:30 Dose: 325 mg Furosemide (Lasix) 80 mg SLOW IVP BID [facility] Last Admin: 06/11/19 08:31 Dose: 80 mg Milrinone Lactate/Dextrose 20 (mg/ Device) 100 mls @ 18.15 mls/hr IVPB INF [facility] Last Admin: 06/11/19 08:28 Dose: 100 mls Magnesium Oxide (Magnesium Oxide) 250 mg PO QID [facility] Last Admin: 06/11/19 08:31 Dose: 250 mg Metoprolol Succinate (Toprol Xl) 25 mg PO BID [facility] Last Admin: 06/11/19 08:31 Dose: 25 mg Pantoprazole Sodium (Protonix) 40 mg PO DAILY [facility] Last Admin: 06/11/19 08:31 Dose: 40 mg Potassium Chloride (K-Dur) 20 meq PO BID[facility] Last Admin: 06/11/19 08:30 Dose: 20 meq Sodium Chloride (Flush - Normal Saline) 10 ml IVF Q12HR [facility] Last Admin: 06/11/19 08:32 Dose: 10 ml Sodium Chloride (Flush - Normal Saline) 10 ml IVF PRN PRN PRN Reason: Saline Flush Sucralfate (Carafate) 1 gm PO QID [facility] Last Admin: 06/11/19 08:31 Dose: 1 gm Zinc Acetate/Diphenhydramine (Benadryl 2% Cream) 1 gm TOP QID PRN PRN Reason: Itching Last Admin: 06/10/19 23:51 Dose: 1 applic Vital Signs & Weight: Vital Signs Temp Pulse Resp BP Pulse Ox 06/11/19 11:11 97.9 F 88 16 135/60 96 06/11/19 07:45 93 L 06/11/19 07:41 98.3 F 88 20 116/57 L 93 L 06/11/19 03:38 97.4 F L 88 19 123/60 95 Weight 223 lb 3.2 oz I/O: I/O 06/10/19 06/11/19 06/12/19 06:59 06:59 06:59 Intake Total 1360 1908 Output Total 0661 8463 Balance -90 -506 - Quality Measures Condition: Atrial Fibrillation/Flutter (hx or current) CV meds: Eliquis: Yes - Physical Exam General: alert & oriented x3, appears well, no apparent distress, speech clear, affect appropriate HEENT: mucus membranes moist, normocephaly Neck: supple neck, midline trachea, no lymphadenopathy Cardiology: regular rate, irregularly irregular Lungs: clear to auscultation, no wheeze, rales, rhonchi Neurology: cranial nerve 2-12 intact, sensory function intact, no lateralizing findings - Labs Result Diagrams: 06/08/19 04:11 06/11/19 04:16 - EKG Interpretation EKG Method: Telemetry EKG shows: Atrial fibrillation - Device Device: biventricular - Assessment/Plan Assessment/Plan: 1. [id number]-[id number] systolic congestive heart failure as well as right ventricular failure due to nonischemic cardiomyopathy. a. Severely reduced LVEF with 2D echo on 03/09/2019 at 15% to 20% with dilated left atrium. b. Severe MR. c. Mild AI. d. Moderate right atrial enlargement. e. Myudkwrr-gn-ydpmci TR. f. RV systolic pressure of 80 mmHg. 2. Chronic atrial fibrillation, -OAC with apixaban. 3. Third-degree AV block. 4. ICD insitu, BiV, no atrial lead given his chronic AFib. a. Status post left ICD (initially placed in 2011) extraction and right side reimplantation by Dr. Abdi on 10/26/2015 . [employer] Viva Quad Bi-V ICD b. suboptimal [employer] pacing on interrogation 5. TdP, VT - in the setting of hypomagnesemia As I discussed with Dr. Agiular, hence the history of chronic atrial fibrillation and biatrial enlargement, maintaining sinus rhythm is not very likely in this gentleman. Should he demostrate he is maintaining sinus rhythm after amio loading and CV and AV synchrony is then required, atrial lead upgrade could be contemplated at that time. Monitor for QT prolongation and torsade-like arrhythmias, increasing ventricular rate to avoid annalisa related torsade rhythms. Maintenance of potassium and magnesium level over 4 and 2 respectively is advisable. K & Mg stable. Avoidance of QT prolonging agents should be made. Continue Eliquis for OAC EP signing off.
--- NOTE | 2019-06-11 14:05 | PDOC.EVN ---
Event Note - Event Note Event Note: Received a page that Mr Aldrich was wanting to leave today against medical advice. I went to bedside to evaluate the patient and they have normal mental status and adequate capacity to make medical decisions. The patient refuses hospital admission and wants to be discharged at this time. The risk and benefits have been explained to the patient, including worsening of illness, worsening of chronic pain, permanent disability, and anything up to and possibly including . The benefits of further admission have been explained to the patient, including the availability of nurses and physicians, continuous monitoring, continuing IV lasix and the patient voiced an understanding and was able to state the risk and benefits of hospital admission. This was witnessed by nurse Shanna who was at bedside during the entire evaluation. The patient was given all opportunities to ask questions about their medical conditions, and all questions were answered to the best of my ability. The patient was treated to the extent at which they would allow, and knows that they may return at any time for medical care. Follow-up has been discussed and is being arranged with their primary care provider and with Dr Aguilar Heart Failure specialist and the patient will go home with Milrinone drip which he states he has supplies for at home. I sent in all other medications to his pharmacy. as I feel in my medical opinion that this is the best outpatient management or treatment this patient is able to receive at this time.
[2019-06-11] MEDS: HYDROcodone/Acetaminophen 10/325 mg Tablet PO PRN (14:52)
--- NOTE | 2019-06-11 15:25 | PRG ---
DATE OF SERVICE: 06/11/2019 SERVICE: Advanced Heart Failure Cardiology Service. SUBJECTIVE: Mónica had a good day. He said he is breathing easier. He is feeling stronger. However, he did not walk. He is not motivated to walk. He is able to sleep well overnight. He can almost sleep flat. However, there are disagreements with ongoing staff. He pressed on people that he wanted to go home right away because he want to go home to celebrate his birthday. He is ready to go home against medical advice. REVIEW OF SYSTEMS: GENERAL: There is no fever, chills, or productive cough. The energy is increasing. HEENT: There are no changes in vision, hearing, or swallowing. PULMONARY: Please see HPI. CARDIOVASCULAR: There are no palpitations or syncope. GASTROINTESTINAL: He is eating well. GENITOURINARY: There is no difficulty with urination. NEUROLOGIC: There are no focal deficits or weaknesses. INTEGUMENTARY: There are no new breakdowns. MUSCULOSKELETAL: He is not complaining of any joint pains today. PSYCHIATRIC: He is not depressed, but not pleased with the situation. He wants to go home as soon as possible to celebrate his birthday. CURRENT MEDICATIONS: Include, 1. Magnesium 250 mg four times a day. 2. Amiodarone 400 mg twice a day. 3. Apixaban 5 mg twice a day. 4. Toprol-XL 25 mg twice a day. 5. Milrinone 0.6 mcg per kg per minute. 6. Atorvastatin 40 mg daily. 7. Furosemide 80 mg IV twice a day. 8. Aspirin 81 mg daily. 9. K-Dur 20 mEq twice a day. OBJECTIVE: VITAL SIGNS: His telemetry was reviewed. It is paced. Lower rate is about 85 beats per minute, which would correspond to his lower rate limit. His current vitals are heart rate 88 and blood pressure 135/60. GENERAL: He is alert and conversational, reclining comfortably in bed, not short of breath. HEENT: Show EOMI, PERRL. His oropharynx is benign. There is moist mucosa. There is no erythema and no exudate. NECK: His JVP is about 12 cm. LUNGS: Clear to auscultation bilaterally. This is the best yet. CARDIAC: Paced rhythm. It is very regular. S1/S2. Today, he has returned S3. This is probably because he has less edema on his chest wall. There is also a 3 /6 holosystolic murmur best heard at the apex with radiation to the left axilla. There is also right ventricular heave. ABDOMEN: Soft, moderately distended, nontender. Positive bowel sounds. EXTREMITIES: His lower extremities have 0.5 - 1 cm pitting edema about his ankles. LABORATORY VALUES: Sodium 133, potassium 4.5, chloride 99, BUN 20, creatinine 1.39, total bilirubin of 4.8. BNP of 1018. ASSESSMENT: A 58-year-old gentleman in [place] Heart Association class 3B heart failure with reduced ejection fraction. He has both systolic and diastolic dysfunction heart failure. Worse, he also has right ventricular failure. His underlying atrial fibrillation also contributes to heart failure. He is still mildly hyponatremic. 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 Although he is overall better; however, his cardiac output to sustain diuresis is currently marginal. He does appear to be approaching euvolemic for him. Ideally, a heart transplant is the only solution. As mentioned in other progress notes, due to the lack of family support and social situation, he is not a candidate not even for evaluation. Consequently, Milrinone is left as palliative care. At this point, the most reasonable approach will be increasing the Milrinone to the maximum dose to provide maximum comfort and find an oral regimen that will allow him to go home. The goal is to set things up, so it would be possible for him to go home on June 12. RECOMMENDATIONS: Please see the following for my recommendations, 1. Increase Milrinone to 0.75 mcg/kg/minute. 2. Complete today's IV Lasix and then could convert to oral diuretics tomorrow. 3. The oral diuretics will be torsemide 40 mg by mouth twice a day. 4. Please supplement his magnesium more aggressively as it is falling down to 1.6 again. We want to keep it above 2.0. If it fall below 1.4, He will have a lot more arrhythmias. 5. Continue to supplement his potassium to make it 4.0 or above. 6. Continue with amiodarone 400 mg twice a day, but on the day of discharge, change it to amiodarone 200 twice a day. 7. We will assess him for potential to high blood pressure. If there are too high blood pressures tomorrow, we can start valsartan twice a day tomorrow. 8. The overall plan is to be using the maximal dose of milrinone and also provide sufficient diuretics that would keep him as euvolemic as possible. Over course of time, his renal function will shut down. When that happens, he will need to go to hospice. It has been a pleasure taking care of Mr. Mónica Aldrich. If you have any questions, please give me a call. Job ID: [id number] MTDD
[2019-06-11] MEDS: Atorvastatin Calcium 40 MG TAB PO SCH (20:08)
--- NOTE | 2019-06-11 22:39 | EKG ---
Test Reason : Blood Pressure : / mmHG Vent. Rate : 087 BPM Atrial Rate : 097 BPM P-R Int : 000 ms QRS Dur : 186 ms QT Int : 508 ms P-R-T Axes : 000 -12 082 degrees QTc Int : 611 ms Electronic ventricular pacemaker When compared with ECG of 09-JUN-2019 11:14, (Unconfirmed) Electronic ventricular pacemaker has replaced Wide QRS rhythm Vent. rate has increased BY 42 BPM Confirmed by Nav ANDERSON ([id number]) on 06/11/2019 10:39:35 PM Referred By: [facility] Confirmed By:Nav ANDERSON
--- NOTE | 2019-06-11 22:39 | EKG ---
Test Reason : DEVICE INTERROGATION Blood Pressure : / mmHG Vent. Rate : 045 BPM Atrial Rate : 326 BPM P-R Int : 000 ms QRS Dur : 134 ms QT Int : 474 ms P-R-T Axes : 000 -77 145 degrees QTc Int : 410 ms Wide QRS rhythm Junctional escape rhythm. Left axis deviation Non-specific intra-ventricular conduction block Possible Lateral infarct , age undetermined Abnormal ECG When compared with ECG of 07-JUN-2019 17:55, (Unconfirmed) Previous ECG has undetermined rhythm, needs review Confirmed by Nav ANDERSON ([id number]) on 06/11/2019 10:39:28 PM Referred By: [facility] Confirmed By:Nav ANDERSON
[2019-06-12] MEDS: Milrinone Lactate/D5W 20 MG in Premix Bag 1 BAG IVPB SCH ×5 (01:01→23:09)
[2019-06-12] MEDS: HYDROcodone/Acetaminophen 10/325 mg Tablet PO PRN ×2 (02:17→20:14)
[2019-06-12 04:56] LABS: ALT (SGPT) 15 U/L (8-55); AST (SGOT) 38 U/L (5-34); Albumin 3.2 g/dL (3.5-5.0); Alkaline Phosphatase 145 U/L (40-110); Anion Gap 13 mmol/L (10-20); BUN (Urea Nitrogen) 20 mg/dL (8.4-25.7); Bilirubin, Total 4.3 mg/dL (0.2-1.2); Calc. Creatinine Clearance 80 mL/min (70-130); Calcium 9.6 mg/dL (7.8-10.44); Carbon Dioxide 24 mmol/L (22-29); Chloride 98 mmol/L (98-107); Estimated GFR-MDRD 62; Globulin 4.1 g/dL (2.4-3.5); Glucose 126 mg/dL (70-105); Magnesium 1.7 mg/dL (1.6-2.6); Potassium 4.3 mmol/L (3.5-5.1); Protein, Total 7.3 g/dL (6.0-8.3); Sodium 131 mmol/L (136-145)
--- NOTE | 2019-06-12 07:05 | PDOC.FM ---
- Subjective Subjective: Yesterday decided not to leave AMA after speaking with Dr Aguilar. Reports doing well this morning. Denies SOB, chest pain. Voiding and stooling. Switching to PO diuretics today. - Objective MAR Reviewed: Yes Vital Signs & Weight: Vital Signs (12 hours) Temp Pulse Resp BP Pulse Ox 06/12/19 06:17 92 L 06/12/19 04:00 97.6 F 86 18 113/59 L 06/11/19 21:02 90 16 94 L 06/11/19 19:27 98.6 F 87 20 105/63 92 L Weight Weight 100.017 kg I&O: 06/11/19 06/12/19 06/13/19 06:59 06:59 06:59 Intake Total 1908 2184 Output Total 2264 2249 Balance -967 -566 Result Diagrams: 06/12/19 07:19 06/12/19 04:13 Phys Exam - Physical Examination Constitutional: NAD HEENT: moist MMs Neck: supple Respiratory: no wheezing, clear to auscultation bilateral Cardiovascular: RRR Gastrointestinal: soft, non-tender Neurological: moves all 4 limbs Psychiatric: normal affect Skin: no rash Dx/Plan - Plan Plan: 58yo male with pmh of systolic/diastolic CHF, chronic afib s/p pacemaker admitted for acute CHF exacerbation Acute on chronic systolic/diastolic CHF exacerbation, improving - Continue Max dose milrinone 75 mcg/kg/minute. Start PO diuretics Toresemide 40mg PO BID. - Consulted Dr. Aguilar-appreciate recs. Continue Amiodarone 400mg BID, discharge on 200mg BID - Definitive tx is heart transplant. Not a candidate LUE thrombus - Continue home Eliquis Chronic afib s/p pacemaker - Continue Eliquis QTC prolongation w/ hx of torsades - Avoid QTC prolonging meds - Keep K >4, Mag >2 - Aggressively replacing Mg HLD/HTN - Continue home meds - May need to start Valsartan if BPs rise DVT ppx: Eliquis Code Status: Full PCP: Doni Dispo: Possibly tomorrow Addendum - Attending - Attending Attestation Date/Time: 06/12/19 9212 I personally evaluated the patient and discussed the management with Dr. Florence I agree with the History, Examination, Assessment and Plan documented above with any addition or exceptions noted below- Patient denies complaints. Walked in hallway yesterday afternoon. Afebrile. VSS A/P: 1) Nonischemic cardiomyopathy - on max dose of milrinone; changed to po diuretics today and possible d/c home tomorrow, 2) Acute on chronic HFrEF - weight down 1.2 kg. Changed to toresmide. 3) Hypomagnesemia - Continue replacement
[2019-06-12] MEDS ORDERED: Magnesium Sulfate 3 GM in Sodium Chloride 0.9% 100 ML IVPB SCH (07:15)
[2019-06-12 07:51] LABS: #Basophils 0.1 thou/uL (0.0-0.2); #Eosinphils 0.2 thou/uL (0.0-0.7); #Lymphocytes 1.4 thou/uL (1.20-3.40); #Neutrophils 5.3 thou/uL (1.40-6.50); %Basophils 1.2 % (0.0-1.0); %Eosinophils 2.3 % (0.0-10.0); %Lymphocytes 17.5 % (21.0-51.0); %Monocytes 12.8 % (0.0-10.0); %Neutrophils 66.1 % (42.0-75.0); Hemoglobin 10.5 g/dL (14.0-18.0); Mean Corpuscular HGB CONC 32.6 g/dL (32.0-36.0); Mean Corpuscular Hemoglobin 34.8 pg (27.0-31.0); Mean Platelet Volume 7.5 fL (7.4-10.4); Platelet Count 134 thou/uL (130-400); RBC Distribution Width 14.8 % (11.5-14.5); Red Blood Cell (RBC) Count 3.01 mill/uL (4.70-6.10); White Blood Cell (WBC) Count 7.9 thou/uL (4.8-10.8)
[2019-06-12] MEDS: Amiodarone 200 MG TAB PO SCH ×2 (09:00→20:13)
[2019-06-12] MEDS: Potassium Chloride 20 MEQ TAB PO SCH ×2 (09:00→17:36)
[2019-06-12] MEDS: Amoxicillin/Potassium Clav 875 MG TAB PO SCH ×2 (09:00→20:13)
[2019-06-12] MEDS: Aspirin 81 mg Enteric Coated Tablet PO SCH (09:00)
[2019-06-12] MEDS: Torsemide 20 MG TAB PO SCH ×2 (09:00→14:16)
[2019-06-12] MEDS: Ferrous Sulfate 325 MG TAB PO SCH (09:01)
[2019-06-12] MEDS: Sucralfate 1 GM TAB PO SCH ×4 (09:01→20:13)
[2019-06-12] MEDS: Magnesium Oxide 400 MG TAB PO SCH ×3 (09:01→20:13)
[2019-06-12] MEDS: Apixaban 5 MG TAB PO SCH ×2 (09:01→20:13)
--- NOTE | 2019-06-12 11:07 | EKG ---
Test Reason : Blood Pressure : / mmHG Vent. Rate : 077 BPM Atrial Rate : 076 BPM P-R Int : 000 ms QRS Dur : 186 ms QT Int : 488 ms P-R-T Axes : 000 -09 086 degrees QTc Int : 552 ms Electronic ventricular pacemaker Wide QRS Left axis deviation Confirmed by SEFERINO SHEEHAN MD ([id number]), film or videotape editor FESTUS DALTON ([id number]) on 06/12/2019 11:07:14 AM Referred By: Confirmed By:SEFERINO SHEEHAN MD
[2019-06-12] MEDS ORDERED: Hydrochlorothiazide 25 MG TAB PO SCH (17:45)
--- NOTE | 2019-06-12 18:59 | PRG ---
DATE OF SERVICE: 06/12/2019 SERVICE: Advanced Heart Failure Cardiology Consulting Service. SUBJECTIVE: Mr. Mónica Aldrich had a relatively good day. He was able to walk and mobilize around the hospital. He said that he was able to sleep almost nearly flat. Since converting over to oral diuretics, he said that he is still able to urinate quite a bit. He still wants to go home tomorrow. However, he did notice that he has some cough. He understand that could be pulmonary edema, but he still wants to go home. REVIEW OF SYSTEMS: GENERAL: There is no fever or chills. Has increased energy level. HEENT: Shows there is no change in vision, hearing, or swallowing. PULMONARY: He is breathing easier, but he noticed a cough, but that is not significantly different before. CARDIAC: There is no palpitation or syncope. GI: He is able to eat alright. : He is able to urinate without difficulty with large volumes. MUSCULOSKELETAL: There are no complaints. INTEGUMENT: He still has edema in his left hand, left arm and left shoulder. NEUROLOGIC: There are no focal deficit or weaknesses. CURRENT CARDIAC MEDICATIONS: 1. Milrinone at 0.75 mcg/kg/minute. 2. Amiodarone 400 mg b.i.d., which will be converted to 200 daily upon leaving. 3. Apixaban 5 mg b.i.d. 4. Toprol-XL 25 mg b.i.d. 5. Atorvastatin 40 mg at bedtime. 6. Torsemide 40 mg b.i.d. 7. Aspirin 81 mg daily. 8. K-Dur at 20 mEq b.i.d. OBJECTIVE: VITAL SIGNS: His telemetry was reviewed. He is paced at 85. There are no significant arrhythmia and there are no worrisome arrhythmias. His latest vitals are heart rate 88, blood pressure 125/71, but his past vitals could be highs at 140 and lows at 110, shows average around 120s GENERAL: He is alert and conversational, sitting comfortably in bed. HEENT: Show EOMI. He still has scleral jaundice. Consequently, his total bilirubin is still high. Oropharynx is benign without erythema, no exudate. There is moist mucosa. NECK: His JVP is still elevated at least 14 cm. PULMONARY: Good air movement bilaterally, but there is coarse breath sounds. There are some bibasilar crackles. CARDIAC: Regular rate and rhythm with decreased edema, now he can hear the S3 gallop again. He has 3/6 holosystolic murmur best heard at apex with radiation to the left axilla. He also had a right ventricular heave. ABDOMEN: Soft, nontender, but distended. He also has pitting edema, presacral on the flanks. EXTREMITIES: Lower extremities, he does not have an edema of his thigh or the top part of his lower extremities. Below the knee, he has about 0.5 to 1 cm pitting edema from his feet about a quarter way up from his ankle that is about 6 inches, which is better than what it was. LABORATORY VALUES: Include sodium 131, potassium 4.3, BUN of 20, creatinine 1.42. His total bilirubin at 4.3. ASSESSMENT: A 58-year-old gentleman resides in [place] Heart Association class 3B heart failure with reduced ejection fraction. He has both systolic and diastolic dysfunctions. This is a nonischemic cardiomyopathy. He is completely depending on maximum dose of milrinone to survive and have a quality of life. At this point, given his lab values and physical exam, even at maximal dose of milrinone and essentially maximum dose of oral diuretics of torsemide, he is still having insufficient cardiac output to sustain enough diuresis. Consequently, he will likely not last very long as outpatient. I understand the patient's wish to live his last days as outpatient as much as possible. As such, we should probably aj his wish. Of note, his other problems include cardiac renal syndrome, hyponatremia due to volume overload. He also has right ventricular failure, he also has liver dysfunction with high total bilirubin due to his right ventricular failure. He has chronic atrial fibrillation. He is a bit passage being suppressed, we are using best possible Bi V pacing to maximize the cardiac output. The last thing we can do is optimize his electrolytes and provide a little bit more oral diuretic foods. Eventually, he will need to go to hospice. This may happen sooner than later. Please see the following for my recommendations. RECOMMENDATIONS: 1. Continue milrinone at a maximum dose of 0.75 mcg/kg/minute IV GTT. 2. Add hydrochlorothiazide 25 mg daily, the first dose now to augment his overall oral diuresis. 3. Please check his electrolyte that is BMP and magnesium tonight at 7 p.m., so we can supplement his electrolytes orally. He can come up with a good discharge oral medication regimen tomorrow morning. 4. We will call the infusion company that will set up drop of the Milrinone medication. The patient will need to carry these Milrinone bags into the pump and then he will be discharged on the home pump with new bags of Milrinone. DISCHARGE MEDICATIONS: A quick summary of his potential discharge medications includes; 1. Toprol-XL 25 mg b.i.d. 2. Amiodarone 200 mg daily. 3. Torsemide 40 mg b.i.d. 4. Hydrochlorothiazide 25 mg daily. 5. Apixaban 5 mg b.i.d. 6. Aspirin 81 mg b.i.d. 7. Finally, the Milrinone will be running at a maximum dose of 0.75 mcg/kg/minute IV GTT. However, he needs have a standing weight tomorrow morning to use that for his dry weight for Milrinone dosing. It has been a pleasure taking care of Mr. Aldrich. If you have any questions, please give me a call. Job ID: [id number]
[2019-06-12 19:30] LABS: Anion Gap 17 mmol/L (10-20); BUN (Urea Nitrogen) 19 mg/dL (8.4-25.7); Calc. Creatinine Clearance 84 mL/min (70-130); Calcium 9.8 mg/dL (7.8-10.44); Carbon Dioxide 21 mmol/L (22-29); Chloride 97 mmol/L (98-107); Estimated GFR-MDRD 66; Glucose 86 mg/dL (70-105); Potassium 5.3 mmol/L (3.5-5.1); Sodium 130 mmol/L (136-145)
[2019-06-12] MEDS: Atorvastatin Calcium 40 MG TAB PO SCH (20:13)
[2019-06-13] MEDS: diphenhydrAMINE 30 GM TUBE TOP PRN (00:45)
[2019-06-13] MEDS: Milrinone Lactate/D5W 20 MG in Premix Bag 1 BAG IVPB SCH ×2 (03:34→09:09)
[2019-06-13 04:41] LABS: #Basophils 0.1 thou/uL (0.0-0.2); #Eosinphils 0.2 thou/uL (0.0-0.7); #Monocytes 1.3 thou/uL (0.11-0.59); #Neutrophils 6.2 thou/uL (1.40-6.50); %Basophils 1.2 % (0.0-1.0); %Lymphocytes 20.4 % (21.0-51.0); %Monocytes 13.4 % (0.0-10.0); Hemoglobin 11.2 g/dL (14.0-18.0); Mean Corpuscular HGB CONC 32.9 g/dL (32.0-36.0); Mean Corpuscular Hemoglobin 34.7 pg (27.0-31.0); Mean Platelet Volume 7.9 fL (7.4-10.4); Platelet Count 140 thou/uL (130-400); RBC Distribution Width 14.6 % (11.5-14.5); Red Blood Cell (RBC) Count 3.22 mill/uL (4.70-6.10); White Blood Cell (WBC) Count 9.8 thou/uL (4.8-10.8)
[2019-06-13 05:01] LABS: ALT (SGPT) 17 U/L (8-55); AST (SGOT) 37 U/L (5-34); Albumin 3.4 g/dL (3.5-5.0); Alkaline Phosphatase 140 U/L (40-110); Anion Gap 15 mmol/L (10-20); BUN (Urea Nitrogen) 20 mg/dL (8.4-25.7); Bilirubin, Total 4.9 mg/dL (0.2-1.2); Calc. Creatinine Clearance 77 mL/min (70-130); Calcium 10.1 mg/dL (7.8-10.44); Carbon Dioxide 25 mmol/L (22-29); Chloride 96 mmol/L (98-107); Estimated GFR-MDRD 60; Globulin 4.5 g/dL (2.4-3.5); Glucose 80 mg/dL (70-105); Magnesium 1.9 mg/dL (1.6-2.6); Potassium 4.3 mmol/L (3.5-5.1); Protein, Total 7.9 g/dL (6.0-8.3); Sodium 132 mmol/L (136-145)
--- NOTE | 2019-06-13 07:23 | PDOC.FM ---
- Subjective Subjective: Slept well. Denies SOB, edema, cough. Anxious to leave today. Reports he has a ride that is bringing his Milrinone. - Objective MAR Reviewed: Yes Vital Signs & Weight: Vital Signs (12 hours) Temp Pulse Resp BP Pulse Ox 06/13/19 04:55 22 H 06/13/19 03:19 99.1 F 86 150/67 H 96 Weight Weight 98.974 kg I&O: 06/12/19 06/13/19 06/14/19 06:59 06:59 06:59 Intake Total 2184 2422 Output Total 2750 2404 Balance -749 -7994 Result Diagrams: 06/13/19 04:14 06/13/19 04:14 Phys Exam - Physical Examination Constitutional: NAD HEENT: moist MMs Neck: supple Respiratory: no wheezing, clear to auscultation bilateral Cardiovascular: RRR Gastrointestinal: soft, non-tender Musculoskeletal: edema present Neurological: moves all 4 limbs Standing Psychiatric: normal affect, A&O x 3 Skin: no rash Dx/Plan - Plan Plan: 58yo male with pmh of systolic/diastolic CHF, chronic afib s/p pacemaker admitted for acute CHF exacerbation Acute on chronic systolic/diastolic CHF exacerbation, improving - Continue Max dose milrinone 75 mcg/kg/minute. Start PO diuretics Toresemide 40mg PO BID. - Consulted Dr. Aguilar-appreciate recs. Continue Amiodarone 400mg BID, discharge on 200mg BID - Started on HCTZ to help with diuresis - Definitive tx is heart transplant. Not a candidate LUE thrombus - Continue home Eliquis Chronic afib s/p pacemaker - Continue Eliquis QTC prolongation w/ hx of torsades - Avoid QTC prolonging meds - Keep K >4, Mag >2 - Aggressively replacing Mg, needs to be PO prior to dc HLD/HTN - Continue home meds - May need to start Valsartan if BPs rise DVT ppx: Eliquis Code Status: Full PCP: Doni Dispo: Possibly tomorrow Addendum - Attending - Attending Attestation Date/Time: 06/13/19 1046 I personally evaluated the patient and discussed the management with Dr. Florence I agree with the History, Examination, Assessment and Plan documented above with any addition or exceptions noted below - Patient without complaints. Ready to go home. Afebrile VSS. A/P: 1) HFrEF - continue milrinone, torsemide, and HCTZ. Electrolytes stable. 2) Hypomagnesemia- improved.
[2019-06-13] MEDS ORDERED: Hydrochlorothiazide 25 MG TAB PO SCH (09:00)
[2019-06-13] MEDS: Torsemide 20 MG TAB PO SCH ×2 (09:10→13:25)
[2019-06-13] MEDS: Magnesium Oxide 400 MG TAB PO SCH ×2 (09:10→13:25)
[2019-06-13] MEDS: Ferrous Sulfate 325 MG TAB PO SCH (09:11)
[2019-06-13] MEDS: Amiodarone 200 MG TAB PO SCH (09:11)
[2019-06-13] MEDS: Potassium Chloride 20 MEQ TAB PO SCH (09:11)
[2019-06-13] MEDS: Amoxicillin/Potassium Clav 875 MG TAB PO SCH (09:11)
[2019-06-13] MEDS: Apixaban 5 MG TAB PO SCH (09:11)
[2019-06-13] MEDS: Aspirin 81 mg Enteric Coated Tablet PO SCH (09:11)
[2019-06-13] MEDS: Sucralfate 1 GM TAB PO SCH ×2 (09:11→13:25)
[2019-06-13 13:55] VITALS: BP 140/84; TEMP 97.8
--- NOTE | 2019-06-13 15:04 | PRG ---
DATE OF SERVICE: 06/13/2019 SUBJECTIVE: Mr. Mónica Aldrich had a good day. He was able to ambulate the hallway. He is looking forward to going home. It has been arranged, the infusion company has delivered new bags of milrinone to his house. His brother will bring the milrinone to him at the hospital and drive him home. He said he is breathing well. He said that he can sleep almost flat. He is able to eat. He did not have the complaints from yesterday. REVIEW OF SYSTEMS: GENERAL: There is no fever or chills. HEENT: There is no change in vision, hearing, or swallowing. PULMONARY: See HPI. CARDIOVASCULAR: There is no syncope. GI: He is eating well. : He said he is urinating quite a bit and it goes quite well. NEUROLOGIC: There are no focal deficits or weakness. MUSCULOSKELETAL: There is no complaint of joint pain this morning. INTEGUMENT: He still has quite a bit of edema at the left upper arm and left arm and left shoulder area; however, there is no new skin breakdown. PHYSICAL EXAMINATION: VITAL SIGNS: Telemetry reviewed, he is paced about 85. There were few PVCs. There is no concerning arrhythmia. His current heart rate is 87, blood pressure 138/ 80. GENERAL: He is alert, conversational, much more energetic, able to move around easily. HEENT: Showed EOMI; however, he still has scleral icterus. NECK: JVP is elevated about 14 cm. His external jugular vein is also visible. PULMONARY: There good air movement bilaterally. He does not have crackles today. CARDIAC: Regular rate and rhythm with S3 gallop, has 3/6 holosystolic murmur at the apex with radiation to the left axilla. There is also right ventricular heave. ABDOMEN: Distended, soft, nontender. He still has presacral edema. EXTREMITIES: Lower extremities, there is no edema from his thighs; however, he still has about 0.5 cm pitting edema from his feet to about a quarter way up towards the knees. LABORATORY VALUES: Include sodium 132, potassium 4.3, BUN 20, creatinine 1.46. Total bilirubin is 4.9. Unfortunately, his BNP is elevated at 1319. ASSESSMENT: 58-year-old gentleman, resides in [place] Heart Association class 3B heart failure with reduced ejection fraction. He has both systolic and diastolic dysfunction. In addition, he has right ventricular failure. This is a very difficult combination. He is currently on maximum dose of milrinone at 0.75 mcg/kg per minute. As seen by his lab values, he is not going to maintain very long. He is still suffering from cardiorenal syndrome due to low cardiac output. Lately, he has been a bit more hypertensive, so this will also need to be corrected as much as possible. A definitive therapy for him would have been a heart transplant. Unfortunately, due to his social situation, he is not a candidate not even to be evaluated. Thus, the only course left is milrinone for palliative care. Milrinone should provide him with good function and good quality of life until it loses its effect. At that time, he will need to be transitioned to hospice. Since this is the only course of action, it is reasonable to allow him to go home today. Recommendations; 1. Continue milrinone at 0.75 mcg/kg per minute IVGTT. 2. Use Toprol-XL 25 mg q.12 hours and also amiodarone 200 mg daily to reduce numbers of PVC to allow maximum number of coordinated biventricular pacing. 3. Torsemide 40 mg b.i.d. 4. Hydrochlorothiazide 25 mg daily. 5. Please add valsartan 40 mg b.i.d. that will also help with potassium too. 6. Apixaban, which is Eliquis at 5 mg b.i.d. 7. Aspirin 81 mg daily. 8. Continue potassium supplement at 20 mEq daily. 9. Continue with magnesium oxide at 800 mg twice per day. Please ensure that he has good followup with his primary care and also heart failure clinic. It has been a pleasure taking care of Mr. Mónica Aldrich. If you have any questions, please give me a call. Job ID: [id number] [email or web address]
--- NOTE | 2019-06-16 08:59 | DIS ---
DATE OF ADMISSION: 06/06/2019 DATE OF DISCHARGE: 06/13/2019 CONSULTS: 1. EP, Dr. Liz. 2. Heart failure specialist, Dr. Aguilar. PROCEDURES: 1. Chest x-ray, 06/06/2019, congestive heart failure. 2. Vascular ultrasound, 06/06/2019, persistent thrombus in the basilic vein. 3. Vascular ultrasound, 06/10/2019, no evidence for DVT within the left upper extremity. 4. Testicular ultrasound, 06/10/2019, prominent bilateral varicoceles, left greater than right. RESIDENT: Marielena Florence, PGY-2. ADMITTING ATTENDING: Dr. Stone. DISCHARGE ATTENDING: Dr. Rina Levine. PRIMARY DIAGNOSES: 1. Acute on chronic systolic and diastolic heart failure exacerbation. 2. Thrombophlebitis with overlying cellulitis. SECONDARY DIAGNOSES: 1. Chronic atrial fibrillation, status post pacemaker. 2. QTc prolongation with history of torsades. 3. Hypertension. 4. Hyperlipidemia. DISCHARGE MEDICATIONS: 1. Eliquis 5 mg b.i.d. 2. Aspirin 81 mg b.i.d. 3. Amiodarone 200 mg daily. 4. Tylenol as needed. 5. Augmentin 875 mg b.i.d. x4 days. 6. Cyclobenzaprine 10 mg daily. 7. Dexilant 60 mg daily. 8. Hydrochlorothiazide 25 mg daily. 9. Hawthorne 1 to 2 tabs p.o. q.6 hours p.r.n. 10. DuoNeb 3 mL nebulized q.i.d. p.r.n. 11. Iron carbonyl 325 mg p.o. daily. 12. Mag oxide 800 mg b.i.d. 13. Metoprolol succinate 25 mg b.i.d. 14. Potassium chloride 20 mEq b.i.d. 15. Sucralfate 1 g p.o. q.i.d. p.r.n. 16. Torsemide 40 mg b.i.d. 17. Milrinone 0.75 mcg/kg per minute IV drip. 18. Valsartan 40 mg b.i.d. DISCONTINUED MEDICATIONS: 1. Aspirin 81 mg daily. 2. Bumex 2 mg b.i.d. 3. Entresto. 4. Milrinone lower dose. HISTORY OF PRESENT ILLNESS AND HOSPITAL COURSE: Mr. Aldrich is a 58-year-old male with past medical history of systolic and diastolic heart failure, hyperbilirubinemia, chronic atrial fibrillation with pacemaker, multiple other chronic conditions, who came in for acute CHF exacerbation. He has multiple hospitalizations for CHF decompensation and was started on milrinone drip at last hospital admission. In the ER, he was given 1 inch nitroglycerin paste and 80 mg IV Lasix. His chest x-ray was consistent with volume overload. His initial labs were notable for creatinine of 1.181, total bilirubin 5.4. Troponin 0.127, 0.124, 0.137. BNP 1299. Platelets 140 at discharge. Vital signs were stable. He is 96% on 2 L nasal cannula. Exam was consistent with CHF exacerbation, bilateral crackles and pitting edema. EKG showed ventricular paced. Dr. Aguilar was consulted, who is his outpatient heart failure specialist. Palliative Care was also consulted and the patient did not want heart transplant which is a definitive treatment and does not have a social support to do so. He did not want to pursue hospice or comfort care at this time. Dr. Aguilar started the patient on amiodarone and he was loaded for 6 days with 400 mg b.i.d. and discharged with 200 mg daily and also started on hydrochlorothiazide for added diuresis. He received IV Lasix during hospitalization, however, this does not work for him p.o. outpatient and he come in on Bumex but was discharged on torsemide b.i.d. The last day of his hospital admission, he was noted to have elevated blood pressures. He was discharged on valsartan 40 mg b.i.d. He was also on metoprolol succinate 25 mg b.i.d. and atorvastatin 40 mg daily. He was noted to have left upper extremity edema and pain. He has had a PICC in his left arm that was removed during the last hospitalization. Left upper extremity showed thrombus. He continued on his home Eliquis 5 mg b.i.d. which is therapeutic dosing. Also noted to have overlying cellulitis on exam. This was treated with Augmentin and he is finishing a 10-day course at discharge. In regard to his QTc prolongation 552 on admission EKG, goal was to keep potassium greater than 4 and magnesium greater than 2, so was aggressively replaced and he was discharged on magnesium 800 mg b.i.d. B.i.d. dosing was chose to improve patient's compliance , however, this may affect the absorption. Please see Dr. Aguilar's last progress note for further details. Other medical conditions were stable throughout course of hospitalization. DISPOSITION: Stable. DISCHARGE INSTRUCTIONS: 1. Location: Home. 2. Diet: Heart healthy fluid restriction. 3. Activity: As tolerated. Obtain weight daily and contact Dr. Aguilar's office for greater than 3 pounds weight gain in one day or greater than 5 pounds weight gain in one week. 4. Follow up with Dr. Aguilar within 7 days, [facility]. 5. Dr. Marion within [address]. [address] Cuevas on 07/17/2019 at 11:00 a.m. 7. Heart failure clinic. 8. Cardiac rehab within 1 to 2 weeks. Job ID: [id number] MTDD
--- NOTE | 2019-06-17 06:04 | PQF ---
ALFREDO HENDERSON ANNA MD [id number] [facility]266 [id number] CLINICAL DOCUMENTATION CLARIFICATION FORM: POST DISCHARGE Addendum to original discharge summary date: ____ Late entry note date: __ DATE: 06/17/2019 ATTN: Rina Greene Please exercise your independent, professional judgment in responding to the clarification form. Clinical indicators are provided on the bottom of this form for your review Please check appropriate box(s) to clarify if the following diagnosis has been ruled in or ruled out: NSTEMI [ ] Ruled in diagnosis [ ] Continue to treat [ ] Resolved [ ] Ruled out diagnosis [ ] Cannot rule out diagnosis [ ] Other diagnosis [ ] Unable to determine For continuity of documentation, please document condition throughout progress notes and discharge summary. Thank You. CLINICAL INDICATORS - SIGNS / SYMPTOMS / LABS Laboratory 06/05 Troponin I 0.127; 0.106; 0.124, CK-MB 2.3, BNP 1298.8 Vital signs 06/05 BP 157/96, Pulse 93, Resp 20 ED notes p3 Jugular vein distended ED notes p4 With associated dyspnea and associated +3 edema to the lower extremities ED notes p9 CHF exacerbation with NSTEMI H&P p1 06/05 Pt reports he has been feeling well until 2hrs ago, when he was folding laundry and strted feeling SOB H&P p4 06/05 Elevated troponin likely due to fluid overload RISK FACTORS ED Notes p1 06/05 History of cardiac arrest H&P p1 06/05 Chronic Afib s/p pacemaker H&P p1 06/05 HLD H&P 06/05 HTN H&P p2 06/05 Quit smoking/Etoh use 2mo ago H&P p4 06/05 Acute Exacerbation of CHF TREATMENTS Respiratory Panel 06/05 BiPaP MAR 06/05 - Lasix 20mg MAY 19 Eliquis 5mg po MAY 19 Aspirin 81mg po MAY 19 Lipitor 40mg po (This form is maintained as a part of the permanent medical record) 2014 [employer] All Rights Reserved [email or web address]
--- NOTE | 2019-06-17 06:05 | PQF ---
ALFREDO HENDERSON ANNA MD [id number] [facility]266 [id number] CLINICAL DOCUMENTATION CLARIFICATION FORM: POST DISCHARGE Addendum to original discharge summary date: ____ Late entry note date: __ DATE: 06/17/2019 ATTN: Rina Greene Please exercise your independent, professional judgment in responding to the clarification form. Clinical indicators are provided on the bottom of this form for your review Please check appropriate box(s) to clarify if the following diagnosis has been ruled in or ruled out: Acute Hypoxic Respiratory Failure [ ] Ruled in diagnosis [ ] Continue to treat [ ] Resolved [ ] Ruled out diagnosis [ ] Cannot rule out diagnosis [ ] Other diagnosis [ ] Unable to determine For continuity of documentation, please document condition throughout progress notes and discharge summary. Thank You. CLINICAL INDICATORS - SIGNS / SYMPTOMS / LABS Vital signs 06/05 BP 157/96, Pulse 93, Resp ED notes p3 Jugular vein distended ED notes p4 With associated dyspnea and associated +3 edema to the lower extremities' H&P p1 06/05 Pt reports he has been feeling well until 2hrs ago, when he was folding laundry and started feeling SOB H&P p6 06/05 Admit to [facility] tele for acute hypoxic respiratory failure 2/2 acute on chronic sys/michael CHF RISK FACTORS H&P p1 06/05 Chronic Afib s/p pacemaker H&P p1 06/05 Chronic Microcytic Anemia H&P p1 06/05 HTN H&P p2 06/05 Quit smoking/Etoh use 2mo ago H&P p1 06/05 CHF TREATMENTS Respiratory Panel 06/05 - BiPaP MAY 19 Duoneb 3ml neb MAY 19 - Lasix 20mg H&P p6 06/05 - Restrict I&Os Daily katy, fluid restriction Collected 06/05 Chest Xray (This form is maintained as a part of the permanent medical record) 2014 [employer]. All Rights Reserved [email or web address]
== END 2019-06-13 15:39 | disposition home health service (06) | DRG 291 ==
LOC: ERS 15:25 → 2NO 17:56
PROVIDERS: ADMIT Internal Medicine; ATTEND Student in an Organized Health Care Education/Training Program
PROC: 5A09357 Assistance with Respiratory Ventilation, Less than 24 Consecutive Hours, Continuous Positive Airway Pressure (ICD-10-PCS; 2019-06-06)
PROC: 4B02XTZ Measurement of Cardiac Defibrillator, External Approach (ICD-10-PCS; principal; 2019-06-07)
DX: I13.0 Hypertensive heart and chronic kidney disease with heart failure and stage 1 through stage 4 chronic kidney disease, or unspecified chronic kidney disease (principal); I50.43 Acute on chronic combined systolic (congestive) and diastolic (congestive) heart failure; I48.20 Chronic atrial fibrillation, unspecified; L03.114 Cellulitis of left upper limb; I47.2 Ventricular tachycardia; I44.2 Atrioventricular block, complete; E87.1 Hypo-osmolality and hyponatremia; I42.8 Other cardiomyopathies; I45.81 Long QT syndrome; I11.0 Hypertensive heart disease with heart failure; E78.5 Hyperlipidemia, unspecified; I80.8 Phlebitis and thrombophlebitis of other sites; K21.9 Gastro-esophageal reflux disease without esophagitis; D50.9 Iron deficiency anemia, unspecified; M10.9 Gout, unspecified; J44.9 Chronic obstructive pulmonary disease, unspecified; N18.3 Chronic kidney disease, stage 3 (moderate); I08.3 Combined rheumatic disorders of mitral, aortic and tricuspid valves; E87.6 Hypokalemia; E83.42 Hypomagnesemia; Z88.8 Allergy status to other drugs, medicaments and biological substances; Z91.041 Radiographic dye allergy status; Z79.82 Long term (current) use of aspirin; Z79.899 Other long term (current) drug therapy; Z79.01 Long term (current) use of anticoagulants; Z95.810 Presence of automatic (implantable) cardiac defibrillator; Z87.891 Personal history of nicotine dependence
CPT/HCPCS: 36415; 71045; 76870; 78582; 80048; 80053; 80306; 82553; 83735; 83880; 84484; 85025; 93005; 93010; 93976; 94640; 94660; 96372; 96374; 96375; 99406; A9540; A9558; J1885; J1940; J2260; J2270; J2405; J3475; J3490; J7620

== ENCOUNTER 2019-06-16 04:50 | Observation (INO) | payer MEDICARE, MEDICAID, OTHER ==
[2019-06-16] MEDS ORDERED: Acetaminophen 500 MG TAB ONE (05:11)
[2019-06-16 06:17] LABS: #Basophils 0.2 thou/uL (0.0-0.2); #Eosinphils 0.2 thou/uL (0.0-0.7); #Lymphocytes 1.4 thou/uL (1.20-3.40); #Monocytes 1.1 thou/uL (0.11-0.59); #Neutrophils 7.6 thou/uL (1.40-6.50); %Basophils 1.6 % (0.0-1.0); %Eosinophils 1.6 % (0.0-10.0); %Lymphocytes 13.1 % (21.0-51.0); %Monocytes 10.7 % (0.0-10.0); Mean Corpuscular HGB CONC 32.5 g/dL (32.0-36.0); Mean Corpuscular Hemoglobin 34.6 pg (27.0-31.0); Mean Platelet Volume 7.5 fL (7.4-10.4); Platelet Count 171 thou/uL (130-400); RBC Distribution Width 14.4 % (11.5-14.5); Red Blood Cell (RBC) Count 3.47 mill/uL (4.70-6.10); White Blood Cell (WBC) Count 10.4 thou/uL (4.8-10.8)
[2019-06-16 06:29] LABS: ALT (SGPT) 13 U/L (8-55); AST (SGOT) 30 U/L (5-34); Albumin 3.5 g/dL (3.5-5.0); Alkaline Phosphatase 128 U/L (40-110); Anion Gap 18 mmol/L (10-20); BUN (Urea Nitrogen) 14 mg/dL (8.4-25.7); Bilirubin, Total 4.5 mg/dL (0.2-1.2); Calc. Creatinine Clearance 0 mL/min (70-130); Calcium 10.1 mg/dL (7.8-10.44); Carbon Dioxide 21 mmol/L (22-29); Chloride 99 mmol/L (98-107); Estimated GFR-MDRD 77; Globulin 4.7 g/dL (2.4-3.5); Glucose 84 mg/dL (70-105); Magnesium 1.6 mg/dL (1.6-2.6); Potassium 3.1 mmol/L (3.5-5.1); Protein, Total 8.2 g/dL (6.0-8.3); Sodium 135 mmol/L (136-145)
[2019-06-16] MEDS ORDERED: Potassium Chloride 20 MEQ TAB ONE (06:38)
[2019-06-16] MEDS ORDERED: Aspirin Chewable 81 MG TAB ONE (06:39)
[2019-06-16] MEDS ORDERED: Oseltamivir 75 MG CAP PO SCH (06:45)
[2019-06-16 06:52] LABS: CKMB 1.8 ng/mL (0-6.6)
--- NOTE | 2019-06-16 07:51 | CT ---
CT OF THE BRAIN WITHOUT CONTRAST: INDICATION: A 58-year-old male with headache. COMPARISON: Prior CT of the brain dated 05/08/2019. FINDINGS: The remote infarct involving the right parietal lobe is stable. The severe chronic small-vessel whit e matter ischemic change is stable. Septum pellucidum and third ventricle are midline. No definite acute infarction, hemorrhage, or hydrocephalus is present. There is a partial effusion involving bot h mastoid air cells. Visualized paranasal sinuses are clear. IMPRESSION: 1. No acute intracranial abnormality. 2. Stable chronic ischemic change. 3. Partial effusion of both mastoid air cells. POS: BH
--- NOTE | 2019-06-16 08:06 | PDOC.FPRHP ---
Addendum entered and electronically signed by Mehdi May MD 06/16/19 10: 28: Documentation error: Respiratory exam: crackles present at bilateral bases. Rhonchi present. Original Note: - History of Present Illness Chief Complaint: Weakness History of Present Illness: 58 yo male who was recently discharged from hospital service presents to ED for evaluation of weakness. Patient reports he woke up around 2 AM today and started feeling ill. He reports he had to lean against the wall to make it downstairs. He reports generalized fatigue, fevers, chills, and a headache. He reports that he was compliant with his medication regimen and yesterday was totally fine. He reports his cough that he always has hasn't changed and he denies any increased work of breathing. He denies recent ill contacts or travel. Patient was primarily admitted due to his subjective inability to tolerate PO and his "co-morbidities." No other complaints. ED Course: Acetaminophen 1000 mg Tamiflu 75 mg 500 ml NS bolus Potassium 30 mEq ASA 162 mg - Allergies/Adverse Reactions Allergies Allergy/AdvReac Type Severity Reaction Status Date / Time iodine Allergy Mild Hives Verified 06/16/19 10:41 spironolactone Allergy Verified 06/16/19 10:41 - Home Medications Medication Instructions Recorded Confirmed Type Cyclobenzaprine [Flexeril] 10 mg PO Q8HR PRN 12/28/18 06/16/19 History Dexlansoprazole [Dexilant] 60 mg PO DAILY 12/28/18 06/16/19 History HYDROcodone/Acetaminophen 1 - 2 tab PO Q4H PRN 12/28/18 06/16/19 History [Hydrocodone-Acetamin 10-325 mg] Iron,Carbonyl [Feosol] 325 mg PO DAILY 12/28/18 06/16/19 History Atorvastatin Calcium 40 mg PO HS 03/19/19 06/16/19 History Apixaban [Eliquis] 5 mg PO BID 03/24/19 06/16/19 History Ipratropium/Albuterol Sulfate 3 ml NEB QID PRN #30 neb 03/24/19 06/16/19 Rx [DuoNeb] Sucralfate 1 gm PO QID PRN 03/30/19 06/16/19 History Metoprolol Succinate [Toprol XL] 25 mg PO BID #60 tab 05/29/19 06/16/19 Rx Potassium Chloride [K-Dur] 20 meq PO BID #60 tab 05/29/19 06/16/19 Rx Acetaminophen [Tylenol Regular 650 mg PO Q4H PRN tab 06/11/19 06/16/19 Rx Strength] Milrinone Lactate/D5W 20 mg IVPB INF bag 06/11/19 06/16/19 Rx Amiodarone HCl 200 mg PO DAILY #30 tablet 06/13/19 06/16/19 Rx Amoxicillin/Potassium Clav 1 each PO BID #8 tablet 06/13/19 06/16/19 Rx [Augmentin 875-125 Tablet] Aspirin [Adult Aspirin Regimen] 81 mg PO BID #60 tablet. 06/13/19 06/16/19 Rx Hydrochlorothiazide 25 mg PO DAILY #30 tab 06/13/19 06/16/19 Rx Magnesium Oxide 800 mg PO BID #120 tab 06/13/19 06/16/19 Rx Torsemide [Demadex] 40 mg PO 0900,1400 #120 tab 06/13/19 06/16/19 Rx Valsartan 40 mg PO BID #60 tablet 06/13/19 06/16/19 Rx - History PMHx: systolic/diastolic CHF, hyperbilirubinemia, chronic afib s/p pacemaker, HLD, GERD, chronic microcytic anemia, HTN, gout PSHx: pacemaker with multiple revisions, PICC FHx: HTN, CAD, MA Social: Hx meth use, denies current use. Quit smoking/etoh use 2mo ago. - Review of Systems General: reports: fever/chills, weight/appetite/sleep changes, fatigue ENT: denies: nasal congestion, rhinorrhea Respiratory: reports: cough. denies: congestion, shortness of breath Cardiovascular: denies: chest pain, palpitation Gastrointestinal: reports: nausea. denies: vomiting, diarrhea, abdominal pain Genitourinary: denies: incontinence, dysuria Skin: denies: rashes, lesions Musculoskeletal: denies: pain, tenderness, stiffness, swelling, arthritis/ arthralgias Neurological: reports: weakness. denies: numbness, syncope, seizure Psychological: denies: anxiety, depression - Vital signs BP: 146/87 HR: 87 RR: 20 Tmax: 98.5 Pox: 97% on RmAir Wt: 95 kg - Physical Exam Constitutional: NAD, awake, alert and oriented HEENT: PERRLA, grossly normal vision, grossly normal hearing, normal nasal mucosa, MMM Neck: trachea midline Heart: RRR, normal S1/S2, no murmurs/rubs/gallops -Heart: 2+ pitting edema to bilateral lower extremities Lungs: CTAB, no respiratory distress, good air movement Abdomen: soft, non-tender, bowel sounds present, no masses/distention Musculoskeletal: normal structure, normal tone, ROM grossly normal Neurological: no focal deficit, CN II-XII intact, normal sensation Skin: no rash/lesions, good turgor Heme/Lymphatic: no unusual bruising or bleeding, no purpura, no petechia Psychiatric: normal mood and affect, good judgment and insight, intact recent and remote memory FMR H&P: Results - Labs Result Diagrams: 06/16/19 05:54 06/16/19 05:54 Lab results: WBC 10.4 thou/uL (4.8-10.8) 06/16/19 05:54 Hgb 12.0 g/dL (14.0-18.0) L 06/16/19 05:54 Hct 37.0 % (42.0-52.0) L 06/16/19 05:54 MCV 107.0 fL (78.0-98.0) H 06/16/19 05:54 Plt Count 171 thou/uL (130-400) 06/16/19 05:54 Neutrophils % 73.0 % (42.0-75.0) 06/16/19 05:54 Sodium 135 mmol/L (136-145) L 06/16/19 05:54 Potassium 3.1 mmol/L (3.5-5.1) L 06/16/19 05:54 Chloride 99 mmol/L (98-107) 06/16/19 05:54 Carbon Dioxide 21 mmol/L (22-29) L 06/16/19 05:54 BUN 14 mg/dL (8.4-25.7) 06/16/19 05:54 Creatinine 1.18 mg/dL (0.7-1.3) 06/16/19 05:54 Glucose 84 mg/dL (70-105) 06/16/19 05:54 Calcium 10.1 mg/dL (7.8-10.44) 06/16/19 05:54 Total Bilirubin 4.5 mg/dL (0.2-1.2) H 06/16/19 05:54 AST 30 U/L (5-34) 06/16/19 05:54 ALT 13 U/L (8-55) 06/16/19 05:54 Alkaline Phosphatase 128 U/L (40-110) H 06/16/19 05:54 CK-MB (CK-2) 1.8 ng/mL (0-6.6) 06/16/19 05:54 Serum Total Protein 8.2 g/dL (6.0-8.3) 06/16/19 05:54 Albumin 3.5 g/dL (3.5-5.0) 06/16/19 05:54 - EKG Interpretation EK lead EKG shows, Ventricular pacemaker, T waves, [place], left. QTC 583 - Radiology Interpretation Chest x-ray Status: image reviewed by me (Cardiomegaly with device in place. NAD) FMR H&P: A/P - Problem List (1) Influenza B Current Visit: Yes Status: Acute Code(s): J10.1 - FLU DUE TO OTH IDENT INFLUENZA VIRUS W OTH RESP MANIFEST (2) Hyponatremia Current Visit: Yes Status: Acute Code(s): E87.1 - HYPO-OSMOLALITY AND HYPONATREMIA (3) Hypokalemia Current Visit: Yes Status: Acute Code(s): E87.6 - HYPOKALEMIA (4) Chronic systolic (congestive) heart failure Current Visit: No Status: Chronic Code(s): I50.22 - CHRONIC SYSTOLIC ( CONGESTIVE) HEART FAILURE Comment: ACC/AHA stage C (5) Elevated troponin Current Visit: No Status: Chronic Code(s): R74.8 - ABNORMAL LEVELS OF OTHER SERUM ENZYMES - Plan Influenza B - Tamiflu 75 mg BID x 5 days - Droplet precautions placed - Encourage PO intake - Caution with fluid status due to CHF - Supportive Care Hyponatremia - Mild - s/p NS bolus - recheck in AM Hypokalemia - 3.1 on admission - given 30 mEq in ED - Will give another 40 mEq - Recheck in AM Elevated Troponin - 0.122 on admission - Below previous hospitalizations - Trend - Consider cardiac workup if symptoms arise Chronic CHF - Continue chronic medications - Caution with IVF - I&Os PCP: Dr. Marion CODE STATUS: FULL CODE Disposition: Stable, will observe on telemetry services for hopeful discharge tomorrow. Plan has been discussed with Dr. Roberto Vu MD who is in agreement with plan. Addendum - Attending - Attending Attestation Date/Time: 06/16/19 1032 I personally evaluated the patient and discussed the management with Dr. May. I agree with the History, Examination, Assessment and Plan documented above with any addition or exceptions noted below. Patient with multiple recent hospitalizations due to biventricular failure and currently on milrinone therapy, declining transfer for possible heart transplant evaluation, here with acute onset of headache and malaise overnight. His lab exam and radiographic exams were overall stable. He has tested positive for Influenza B. He will be started on Tamiflu, symptomatic treatment. Monitor I /O closely but hopefully can discharge relatively soon as he reports he has been taking his other meds. Will work to get K >4 and Mg>2 per previous HF clinic recs.
--- NOTE | 2019-06-16 08:21 | RAD ---
PORTABLE CHEST 1 VIEW: DATE: 06/16/2019. TIME: 5:16 AM. HISTORY: Chest pain, hypertension, COPD, CHF. FINDINGS/IMPRESSION: Comparison is made with the exam of 06/06/2019. The heart is enlarged. A right-sided AICD remains in place. The lungs are expanded with mild promin ence of the pulmonary vascularity. No lobar consolidation, pneumothoraces, or large effusions are se en. POS: MZA
[2019-06-16 09:16] LABS: Troponin I 0.127 ng/mL (< 0.028)
[2019-06-16] MEDS ORDERED: Acetaminophen 325 MG TAB PO PRN ×2 (09:35→09:38)
[2019-06-16] MEDS ORDERED: Potassium Chloride 20 MEQ TAB PO SCH ×2 (09:35→21:00)
[2019-06-16] MEDS ORDERED: Magnesium Sulfate 2 GM in Sodium Chloride 0.9% 100 ML IVPB SCH (09:35)
[2019-06-16] MEDS ORDERED: Ondansetron PF 4 MG/2 ML Vial IVP PRN (09:38)
[2019-06-16] MEDS ORDERED: Ondansetron ODT 4 MG TAB PO PRN (09:38)
[2019-06-16 09:42] VITALS: BMI 29.5
[2019-06-16] MEDS ORDERED: Magnesium 2 GM/50 ML 2 GM in Premix Bag 1 BAG IVPB SCH (09:45)
[2019-06-16] MEDS ORDERED: Cyclobenzaprine 10 MG TAB PO PRN (12:26)
[2019-06-16] MEDS ORDERED: Sucralfate 1 GM TAB PO PRN (12:26)
[2019-06-16] MEDS ORDERED: Magnesium Oxide 400 MG TAB PO SCH ×2 (12:30→21:00)
[2019-06-16 12:57] LABS: Troponin I 0.124 ng/mL (< 0.028)
[2019-06-16 15:06] LABS: Hemoglobin 11.5 g/dL (14.0-18.0); Platelet Count 122 thou/uL (130-400)
[2019-06-16] MEDS: Torsemide 20 MG TAB PO SCH (15:14)
[2019-06-16] MEDS: HYDROcodone/Acetaminophen 10/325 mg Tablet PO PRN ×2 (15:16→21:09)
[2019-06-16 15:20] LABS: Anion Gap 15 mmol/L (10-20); BUN (Urea Nitrogen) 15 mg/dL (8.4-25.7); Calc. Creatinine Clearance 86 mL/min (70-130); Carbon Dioxide 25 mmol/L (22-29); Chloride 98 mmol/L (98-107); Estimated GFR-MDRD 72; Glucose 112 mg/dL (70-105); Magnesium 1.6 mg/dL (1.6-2.6); Potassium 3.7 mmol/L (3.5-5.1); Sodium 134 mmol/L (136-145)
[2019-06-16] MEDS: Milrinone Lactate/D5W 20 MG/100 ML BAG IVPB SCH ×2 (15:27→21:04)
[2019-06-16] MEDS: Potassium Chloride 20 MEQ TAB PO SCH (16:59)
--- NOTE | 2019-06-16 17:41 | ULT ---
ULTRASOUND DOPPLER DUPLEX VENOUS LEFT LOWER EXTREMITY: DATE: 06/16/2019 HISTORY: 58-year-old male with left upper extremity swelling and paresthesia TECHNIQUE: Grayscale, color-flow, and spectral analysis, of major veins of left upper extremity. Compression and release applied to all veins except the subclavian. FINDINGS: There is demonstration of blood flow with normal compressibility, of the left internal jugular, axill tomi, basilic, cephalic, brachial, radial, and ulnar, veins. There is flow demonstrated in the subclavian vein. There is increased echogenicity of the blood, suggestive of sluggish flow, in the le ft internal jugular vein. There is extensive, significant superficial soft tissue edema throughout both the left arm and left forearm. IMPRESSION: 1. No deep venous thrombosis of left upper extremity. 2. High-grade edema of left upper extremity soft tissues. 3. Sluggish flow in the left internal jugular vein.
--- NOTE | 2019-06-16 18:00 | ULT ---
Ultrasound Doppler duplex arterial left upper extremity: HISTORY: 58-year-old male with worsening of left upper extremity edema and paresthesia TECHNIQUE: Grayscale, color-flow, and spectral analysis, of major arteries of left upper extremity. FINDINGS: There is edema throughout the superficial soft tissues of the left arm and also the left forearm. The pulse Doppler waveforms in the common carotid, subclavian, axillary, brachial, radial, and ulnar, arteries, are triphasic. No evidence of occlusion. IMPRESSION: 1. All major arteries of left upper extremity are patent. 2. Soft tissue edema throughout the left upper extremity.
[2019-06-16] MEDS ORDERED: Non-Formulary Item 1 EACH (Atorvastatin Calcium [Atorvastatin Calcium] 40 MG) PO SCH (21:00)
[2019-06-16] MEDS ORDERED: Atorvastatin Calcium 40 MG TAB PO SCH (21:00)
[2019-06-16] MEDS ORDERED: VALSARTAN 40 MG PO SCH (21:00)
[2019-06-16] MEDS: Aspirin 81 mg Enteric Coated Tablet PO SCH (21:01)
[2019-06-16] MEDS: Valsartan 80 MG TAB PO SCH (21:01)
[2019-06-16] MEDS: Oseltamivir 75 MG CAP PO SCH (21:01)
[2019-06-16] MEDS: Magnesium Oxide 400 MG TAB PO SCH (21:10)
[2019-06-16] MEDS: Apixaban 5 MG TAB PO SCH (21:10)
[2019-06-16 21:31] LABS: Bilirubin 1+ (Negative); Blood, Urine Negative (Negative); Clarity Clear (Clear); Glucose, Urine (Dipstick) Normal (Negative); Leukocyte Negative Leu/uL (Negative); Nitrite Negative (Negative); Protein, Urine (Dipstick) 30 mg/dL (Neg-Trace); RBC/HPF 0-3 HPF (0-3); Squamous Epithelial 0-3 HPF (0-3)
[2019-06-16 21:32] LABS: Bacteria/HPF Rare-Few HPF (None Seen)
[2019-06-16] MEDS ORDERED: Albuterol 200 PUFF (6.7GM INHALER) INH PRN ×2 (23:27→23:28)
[2019-06-17] MEDS: Milrinone Lactate/D5W 20 MG/100 ML BAG IVPB SCH ×2 (01:53→06:54)
[2019-06-17 05:33] LABS: Anion Gap 13 mmol/L (10-20); BUN (Urea Nitrogen) 17 mg/dL (8.4-25.7); Calc. Creatinine Clearance 67 mL/min (70-130); Calcium 9.9 mg/dL (7.8-10.44); Carbon Dioxide 27 mmol/L (22-29); Chloride 98 mmol/L (98-107); Estimated GFR-MDRD 54; Glucose 108 mg/dL (70-105); Magnesium 1.6 mg/dL (1.6-2.6); Sodium 134 mmol/L (136-145)
--- NOTE | 2019-06-17 06:55 | PDOC.FM ---
- Subjective Subjective: pt doing well this morning. Denies any cough, subjective fevers, continued muscle aches, or shortness of breath. His left arm continues to be swollen but is less painful than it was yesterday. Denies any numbness or tingling in the arm. - Objective Vital Signs & Weight: Vital Signs (12 hours) Temp Pulse Resp BP Pulse Ox 06/17/19 03:41 96 F L 85 17 112/66 93 L 06/16/19 21:01 96.9 F L 91 22 H 127/83 100 Weight Weight 95.254 kg I&O: 06/15/19 06/16/19 06/17/19 06:59 06:59 06:59 Intake Total 860 Output Total 300 Balance 560 Result Diagrams: 06/16/19 14:54 06/17/19 04:32 Phys Exam - Physical Examination Constitutional: NAD HEENT: moist MMs Neck: full ROM Respiratory: clear to auscultation bilateral Cardiovascular: RRR Gastrointestinal: soft, non-tender Musculoskeletal: edema present LUE pitting edema to anterior aspect, likely 2/2 to recent traumatic PICC Neurological: non-focal, normal sensation, moves all 4 limbs Psychiatric: normal affect, A&O x 3 Skin: no rash, cap refill <2 seconds Dx/Plan (1) Influenza B Code(s): J10.1 - FLU DUE TO OTH IDENT INFLUENZA VIRUS W OTH RESP MANIFEST Status: Acute (2) Hypokalemia Code(s): E87.6 - HYPOKALEMIA Status: Resolved (3) Hyponatremia Code(s): E87.1 - HYPO-OSMOLALITY AND HYPONATREMIA Status: Acute (4) JOSE A (acute kidney injury) Code(s): N17.9 - ACUTE KIDNEY FAILURE, UNSPECIFIED Status: Acute - Plan Plan: Influenza B - Tamiflu 75 mg BID x 5 days - Droplet precautions placed - Encourage PO intake - Caution with fluid status due to CHF - Negative COVID and RVP - Supportive Care LUE Edema - US - no thrombus, patent arteries, soft tissue swelling - Pt had attempted PICC placement in that arm about a week ago Hyponatremia - Mild, 134 - Improved after NS bolus Hypokalemia - 3.1 on admission - given 70meq yesterday, currently 4 Elevated Troponin - stable trend - has remained asx Chronic CHF - Continue chronic medications - Caution with IVF - I&Os PCP: Dr. Marion CODE STATUS: FULL CODE Disposition: Observation. Doing well with no active flu sx, will plan for DC later today with close outpt follow up for chronic conditions. Addendum - Attending - Attending Attestation Date/Time: 06/17/19 0083 I personally evaluated the patient and discussed the management with Dr. Fritz. I agree with the History, Examination, Assessment and Plan documented above with any addition or exceptions noted below.
[2019-06-17] MEDS: Potassium Chloride 20 MEQ TAB PO SCH (08:36)
[2019-06-17] MEDS: Oseltamivir 75 MG CAP PO SCH (08:37)
[2019-06-17] MEDS: Valsartan 80 MG TAB PO SCH (08:37)
[2019-06-17] MEDS: Aspirin 81 mg Enteric Coated Tablet PO SCH (08:38)
[2019-06-17] MEDS: Magnesium Oxide 400 MG TAB PO SCH (08:38)
[2019-06-17] MEDS: Apixaban 5 MG TAB PO SCH (08:38)
[2019-06-17] MEDS: Torsemide 20 MG TAB PO SCH (08:38)
[2019-06-17] MEDS ORDERED: Non-Formulary Item 1 EACH (Dexlansoprazole [Dexilant] 60 MG) PO SCH (09:00)
[2019-06-17] MEDS ORDERED: Amiodarone 200 MG TAB PO SCH (09:00)
[2019-06-17] MEDS ORDERED: IRON CARBONYL PO SCH (09:00)
[2019-06-17] MEDS ORDERED: Hydrochlorothiazide 25 MG TAB PO SCH (09:00)
[2019-06-17] MEDS ORDERED: Ferrous Sulfate 325 MG TAB PO SCH (09:00)
--- NOTE | 2019-06-17 11:44 | PRG ---
DATE OF SERVICE: 06/17/2019 SUBJECTIVE: Mr. Aldrich had a good day. He said he feels better. He believes his swelling is down. Though his cough also decreased. His COVID-19 test came back negative, but his influenza B test came back positive. Tamiflu has been started. After some discussion about using enoxaparin as to be more effective for the left arm, he said he is not good with needles and prefer not to use enoxaparin. REVIEW OF SYSTEMS: GENERAL: There is no fever or chills. HEENT: There is no change in hearing, vision, or swallowing. PULMONARY: He is breathing better and easier. CARDIOVASCULAR: There is no palpitations or syncope. There is no shortness of breath. GI: He is eating well. : He is urinating well without difficulty. NEUROLOGIC: There are no focal deficits or weaknesses. MUSCULOSKELETAL: There are no new complaints today. INTEGUMENT: He has continued edema of the left hand, left lower arm, left upper arm, and left shoulder. MEDICATIONS: His cardiac medications currently consist of: 1. Valsartan 40 mg twice per day. 2. Magnesium oxide 300 mg twice a day. 3. Amiodarone 200 mg daily. 4. Eliquis 5 mg twice a day. 5. Toprol-XL at 25 mg every 12 hours. 6. Milrinone at maximum dose 0.75 mcg/kg/minute. 7. Atorvastatin at 40 mg each night. 8. Torsemide 40 mg twice a day. OBJECTIVE: VITAL SIGNS: Heart rate 80, blood pressure 110/74. GENERAL: He is alert, conversational, lying comfortably in bed. He can almost lay flat. HEENT: Show EOMI. He still has chronic scleral icterus-he is jaundiced. Oropharynx benign with moist mucosa without erythema. No exudate. NECK: His JVP is still elevated about at least 14 cm. PULMONARY: He is clear to auscultation bilaterally. He has much better lung sounds today. HEART: Regular rate and rhythm with a 2/6 holosystolic murmur at the apex with radiation to the left axilla. He has right ventricular heave. ABDOMEN: Soft, nontender, but is slightly distended. EXTREMITIES: His lower extremities are with minimal edema. Well perfused. LABORATORY DATA: His chemistry shows sodium 134, potassium 4, BUN 17, creatinine 1.6, magnesium 1.6. ASSESSMENT: 58-year-old gentleman was admitted for influenza B and also swelling of the left shoulder, left arm. Apparently, Tamiflu is having some effect. His left arm edema seemed to be little bit decreased. He resides in [place] Heart Association class 4 heart failure with reduced ejection fraction, he has both systolic and diastolic dysfunctions. He also has severe right ventricular dysfunction leading to right ventricular failure. He is on maximum dose of milrinone at this point. Fortunately, he is still working. It is slightly concerning that his creatinine has risen. With him being nearly euvolemic in his status, we can decrease his diuretics a bit, so his kidney still can last longer. Please see the following for recommendations. RECOMMENDATIONS: 1. Stop hydrochlorothiazide. 2. Replace that with metolazone 5 mg once per week on , start about 2 days from now. 3. Consider extending antibiotic coverage for thrombophlebitis. It may help his arm. 4. He will need to be followed closely either by phone or in clinic. 5. Continue Tamiflu as you are doing. 6. It is likely his kidney function will get worse. When the creatinine reaches about 2.5, the milrinone needs to be titrated down because at that point it is becoming toxic. When he starts to drop his blood pressure, then he has no choice but transitioned to hospice is the only option. It has been a pleasure taking care of Mr. Aldrich. If you have any questions, please give me a call. Job ID: [id number] MTDD
[2019-06-17 12:17] VITALS: BP 139/83; TEMP 98
--- NOTE | 2019-06-17 15:58 | DIS ---
DATE OF ADMISSION: 06/16/2019 DATE OF DISCHARGE: 06/17/2019 ADMITTING ATTENDING: Roberto Vu MD DISCHARGE ATTENDING: Roberto Vu MD RESIDENT: Esteban Fritz DO. CONSULTS: None. PROCEDURES AND IMAGING: Chest x-ray, impression: Comparison made to exam on 06/06/2019. Heart is enlarged. Lungs expanded with mild prominence of pulmonary vascularity. No consolidation or effusion. Brain CT, impression: No acute intracranial abnormalities. Stable chronic ischemic changes. Partial effusion of both mastoid air cells. Left upper extremity ultrasound, impression: All major arteries are patent. Soft tissue edema throughout. No deep vein thrombosis. Sluggish flow in the left internal jugular vein. PRIMARY DIAGNOSES: Influenza B, hyponatremia, and hypokalemia. SECONDARY DIAGNOSES: Chronic systolic congestive heart failure and elevated troponin. DISCHARGE MEDICATIONS: 1. Feosol 325 mg daily. 2. Dexilant 60 mg daily. 3. [place] 10/325 one to two tablets q.4 hours p.r.n. 4. Flexeril 10 mg q.8 hours p.r.n. 5. Atorvastatin 40 mg at bedtime. 6. Eliquis 5 mg b.i.d. 7. DuoNeb 3 mL q.i.d. p.r.n. 8. Sucralfate 1 g p.o. q.i.d. p.r.n. 9. Toprol-XL 25 mg b.i.d. 11. Tylenol 650 mg q.4 hours p.r.n. 12. Milrinone lactate/D5W 20 mg/100 mL bag, 20 mg IV piggyback infusion as directed. 13. Torsemide 40 mg b.i.d. 14. Aspirin 81 mg b.i.d. 15. Amiodarone 200 mg daily. 16. Augmentin 1 tablet b.i.d. x4 days. 17. Magnesium oxide 400 mg 2 tablets b.i.d. 18. Valsartan 40 mg b.i.d. 19. Tamiflu 75 mg b.i.d. x4 days. 21. Metolazone 5 mg p.o. q.7 days. DISCONTINUED MEDICATIONS: Hydrochlorothiazide 25 mg daily. HISTORY OF PRESENT ILLNESS AND HOSPITAL COURSE: A 58-year-old male, who was recently discharged from the hospital following evaluation for weakness, presented to the ED in the morning after waking up around 2 a.m., feeling ill with a headache. He reported generalized fatigue and subjective fever and chills. The patient was assessed for viral causes of his illness with a resulting positive influenza B and negative respiratory viral panel and COVID-19. The patient was admitted to the hospital for observation due to his multiple comorbidities. The following day, the patient continued to saturate normally, had a chest x-ray that showed no consolidation, reported resolution of all of his symptoms. The patient was evaluated during his admission for left upper extremity edema. The patient recently had an attempted PICC line placement in the left upper extremity during his previous admission, that was unsuccessful. The patient complained of worsening edema and pain in the left upper extremity. It was evaluated with both arterial and venous ultrasounds showing patent flow and no thrombus with significant soft tissue edema. This was likely related to recent attempted PICC line placement and possible compromised length channels. Prior to discharge, the patient stated that his left upper extremity pain was improving. The patient does have a history of phlebitis in that arm, which also could be related. The patient was recommended to continue his Augmentin, that he was treating for this as it was improving as an outpatient. The patient was started and continued on Tamiflu throughout his admission and discharged home to complete a full course. DISCHARGE INSTRUCTIONS: LOCATION: Home. DIET: Heart-healthy. ACTIVITY: As tolerated by cardiopulmonary limits. FOLLOWUP: PCP, Dr. Marion within 7 days. Note: Case was discussed with the patient's technical advisor, Dr. Aguilar, who recommended that we discontinue his hydrochlorothiazide and initiate metolazone [address] Aguilar discussed with the patient while he was in the hospital switching to enoxaparin from his Eliquis for a short period of time, but the patient refused. Job ID: [id number] [facility]
--- NOTE | 2019-06-20 13:55 | EKG ---
Test Reason : EMERGENCY Blood Pressure : / mmHG Vent. Rate : 085 BPM Atrial Rate : 050 BPM P-R Int : 000 ms QRS Dur : 190 ms QT Int : 500 ms P-R-T Axes : 000 249 063 degrees QTc Int : 595 ms Electronic ventricular pacemaker No STEMI Confirmed by THALIA KING M.D. ([id number]), film editor supervisor FESTUS DALTON ([id number]) on 06/20/2019 1:54:45 PM Referred By: Confirmed By:THALIA KING M.D.
== END 2019-06-17 13:30 | disposition home health service (06) ==
LOC: ERS 04:50 → 2SW 09:10
PROVIDERS: ADMIT Family Medicine; ATTEND Family Medicine
DX: J10.1 Influenza due to other identified influenza virus with other respiratory manifestations (principal); E87.1 Hypo-osmolality and hyponatremia; E87.5 Hyperkalemia; I50.22 Chronic systolic (congestive) heart failure; R79.89 Other specified abnormal findings of blood chemistry; N17.9 Acute kidney failure, unspecified; R60.0 Localized edema; Z20.828 Contact with and (suspected) exposure to other viral communicable diseases; Z79.01 Long term (current) use of anticoagulants; Z79.899 Other long term (current) drug therapy; Z79.82 Long term (current) use of aspirin
CPT/HCPCS: 70450; 71045; 80048 ×2; 80053; 81001; 82553; 82565; 83735 ×2; 84484 ×2; 85014; 85018; 85025; 85049; 87040; 87077; 87086; 87186; 87633; 87804 ×2; 93005; 93923; 93971; 96361; 96365; 96366 ×2; 99285; G0378 ×3; U0001; 36415; 96360; J2260

== ENCOUNTER 2019-07-01 01:42 | Emergency (ER) | payer MEDICARE, MEDICAID ==
[2019-07-01 02:08] LABS: #Basophils 0.1 thou/uL (0.0-0.2); #Eosinphils 0.2 thou/uL (0.0-0.7); #Lymphocytes 1.8 thou/uL (1.20-3.40); #Monocytes 1.4 thou/uL (0.11-0.59); #Neutrophils 7.6 thou/uL (1.40-6.50); %Basophils 0.8 % (0.0-1.0); %Eosinophils 1.6 % (0.0-10.0); %Lymphocytes 16.6 % (21.0-51.0); %Monocytes 12.7 % (0.0-10.0); %Neutrophils 68.3 % (42.0-75.0); Hemoglobin 11.3 g/dL (14.0-18.0); Mean Corpuscular HGB CONC 32.5 g/dL (32.0-36.0); Mean Corpuscular Hemoglobin 34.7 pg (27.0-31.0); Mean Platelet Volume 8.4 fL (7.4-10.4); Platelet Count 131 thou/uL (130-400); RBC Distribution Width 13.7 % (11.5-14.5); Red Blood Cell (RBC) Count 3.25 mill/uL (4.70-6.10); White Blood Cell (WBC) Count 11.1 thou/uL (4.8-10.8)
[2019-07-01 02:36] LABS: ALT (SGPT) 13 U/L (8-55); AST (SGOT) 27 U/L (5-34); Albumin 3.6 g/dL (3.5-5.0); Alkaline Phosphatase 156 U/L (40-110); Anion Gap 17 mmol/L (10-20); BUN (Urea Nitrogen) 30 mg/dL (8.4-25.7); Bilirubin, Total 3.6 mg/dL (0.2-1.2); Calc. Creatinine Clearance 0 mL/min (70-130); Calcium 10.1 mg/dL (7.8-10.44); Carbon Dioxide 20 mmol/L (22-29); Chloride 100 mmol/L (98-107); Estimated GFR-MDRD 73; Globulin 4.8 g/dL (2.4-3.5); Glucose 90 mg/dL (70-105); Potassium 3.6 mmol/L (3.5-5.1); Protein, Total 8.4 g/dL (6.0-8.3); Sodium 133 mmol/L (136-145)
[2019-07-01 02:51] LABS: CKMB 1.5 ng/mL (0-6.6)
[2019-07-01] MEDS ORDERED: Ketorolac Tromethamine 30 MG/ML VIAL ONE (02:59)
--- NOTE | 2019-07-01 07:16 | RAD ---
SINGLE VIEW CHEST: Date: 07/01/2019 COMPARISON: 06/16/2019. HISTORY: Shortness of breath. FINDINGS: Single view of the chest shows an enlarged but stable cardiomediastinal silhouette. The pacemaker is unchanged in position. There is no evidence of consolidation, mass, or pleural effusion. IMPRESSION: 1. No evidence of acute cardiopulmonary disease. 2. Cardiomegaly. POS: C
== END 2019-07-01 03:59 | disposition home or self-care (01) ==
LOC: ERS 01:42
DX: I11.0 Hypertensive heart disease with heart failure (principal); I50.9 Heart failure, unspecified; J44.9 Chronic obstructive pulmonary disease, unspecified; I48.91 Unspecified atrial fibrillation; F17.210 Nicotine dependence, cigarettes, uncomplicated; Z79.899 Other long term (current) drug therapy
CPT/HCPCS: 71045; 80053; 82553; 83880; 84484; 85025; 93005; 96372; 99285; J1885; 36415

== ENCOUNTER 2019-07-06 18:42 | Inpatient (IN) | payer MEDICARE, MEDICAID ==
[2019-07-06 19:27] LABS: #Basophils 0.1 thou/uL (0.0-0.2); #Eosinphils 0.3 thou/uL (0.0-0.7); #Lymphocytes 2.1 thou/uL (1.20-3.40); #Monocytes 1.4 thou/uL (0.11-0.59); #Neutrophils 6.5 thou/uL (1.40-6.50); %Basophils 0.9 % (0.0-1.0); %Eosinophils 2.6 % (0.0-10.0); %Lymphocytes 20.2 % (21.0-51.0); %Monocytes 13.7 % (0.0-10.0); %Neutrophils 62.6 % (42.0-75.0); Hemoglobin 10.6 g/dL (14.0-18.0); Mean Corpuscular HGB CONC 32.1 g/dL (32.0-36.0); Mean Corpuscular Hemoglobin 34.1 pg (27.0-31.0); Mean Platelet Volume 8.1 fL (7.4-10.4); Platelet Count 131 thou/uL (130-400); RBC Distribution Width 13.3 % (11.5-14.5); White Blood Cell (WBC) Count 10.4 thou/uL (4.8-10.8)
[2019-07-06 19:49] LABS: ALT (SGPT) 17 U/L (8-55); AST (SGOT) 35 U/L (5-34); Albumin 3.6 g/dL (3.5-5.0); Alkaline Phosphatase 167 U/L (40-110); Anion Gap 16 mmol/L (10-20); BUN (Urea Nitrogen) 28 mg/dL (8.4-25.7); Calc. Creatinine Clearance 0 mL/min (70-130); Calcium 9.7 mg/dL (7.8-10.44); Carbon Dioxide 24 mmol/L (22-29); Chloride 100 mmol/L (98-107); Estimated GFR-MDRD 62; Globulin 4.4 g/dL (2.4-3.5); Glucose 92 mg/dL (70-105); Potassium 3.9 mmol/L (3.5-5.1); Sodium 136 mmol/L (136-145)
[2019-07-06] MEDS ORDERED: Morphine 4 MG/ML VIAL ONE (19:49)
[2019-07-06] MEDS ORDERED: Furosemide 40 MG/4 ML VIAL ONE (19:49)
--- NOTE | 2019-07-06 19:51 | RAD ---
CHEST ONE VIEW: History: Worsening difficulty breathing. Comparison: 07-01-2019 FINDINGS: Cardiomegaly with bilateral vascular congestion. Right PICC line. Right ICD. IMPRESSION: Cardiomegaly with mild vascular congestion. No overt edema, confluent pneumonia or other acute proces s. POS: RRE
[2019-07-06 20:12] LABS: CKMB 1.8 ng/mL (0-6.6)
--- NOTE | 2019-07-06 20:43 | PDOC.FPRHP ---
- History of Present Illness Chief Complaint: Shortness of breath, swelling History of Present Illness: 59yo M w/ PMHx of combined systolic and diastolic HF on chronic milrinone drip presents to ED w/ worsening SOB and edema. Pt has been admitted for this numerous times in the past. States that nothing has really changed aside from that he has been eating more microwave meals at home that have a lot of salt in it due to COVID changes affecting the type of food he is able to get. Denies any problems with is pump or taking any of his medications. Denies any signs of sx of infectious illness including fever, chills, N/V/D, or sick contacts. Called HF clinic on Sunday but was not able to be seen due to COVID precautions. Instructed to go to ED if worsened sx over the weekend. ED Course: Received 40mg IV lasix and 4mg morphine - Allergies/Adverse Reactions Allergies Allergy/AdvReac Type Severity Reaction Status Date / Time iodine Allergy Mild Hives Verified 06/16/19 10:41 spironolactone Allergy Verified 06/16/19 10:41 - Home Medications Medication Instructions Recorded Confirmed Type Cyclobenzaprine [Flexeril] 10 mg PO Q8HR PRN 12/28/18 07/06/19 History Dexlansoprazole [Dexilant] 60 mg PO DAILY 12/28/18 07/06/19 History HYDROcodone/Acetaminophen 1 - 2 tab PO Q4H PRN 12/28/18 07/06/19 History [Hydrocodone-Acetamin 10-325 mg] Iron,Carbonyl [Feosol] 325 mg PO DAILY 12/28/18 07/06/19 History Atorvastatin Calcium 40 mg PO HS 03/19/19 07/06/19 History Apixaban [Eliquis] 5 mg PO BID 03/24/19 07/06/19 History Ipratropium/Albuterol Sulfate 3 ml NEB QID PRN #30 neb 03/24/19 07/06/19 Rx [DuoNeb] Sucralfate 1 gm PO QID PRN 03/30/19 07/06/19 History Metoprolol Succinate [Toprol XL] 25 mg PO BID #60 tab 05/29/19 07/06/19 Rx Potassium Chloride [K-Dur] 20 meq PO BID #60 tab 05/29/19 07/06/19 Rx Acetaminophen [Tylenol Regular 650 mg PO Q4H PRN tab 06/11/19 07/06/19 Rx Strength] Milrinone Lactate/D5W 20 mg IVPB INF bag 06/11/19 07/06/19 Rx Amiodarone HCl 200 mg PO DAILY #30 tablet 06/13/19 07/06/19 Rx Aspirin [Adult Aspirin Regimen] 81 mg PO BID #60 tablet. 06/13/19 07/06/19 Rx Magnesium Oxide 800 mg PO BID #120 tab 06/13/19 07/06/19 Rx Torsemide [Demadex] 40 mg PO 0900,1400 #120 tab 06/13/19 07/06/19 Rx Valsartan 40 mg PO BID #60 tablet 06/13/19 07/06/19 Rx Amoxicillin/Potassium Clav 1 each PO BID #8 tablet 06/17/19 07/06/19 Rx [Augmentin 875-125 Tablet] Metolazone [Zaroxolyn] 5 mg PO Q7D #4 tab 06/17/19 07/06/19 Rx Oseltamivir [Tamiflu] 75 mg PO BID #8 cap 06/17/19 07/06/19 Rx Potassium Chloride [K-Dur] 40 meq PO BID-WM tab 06/17/19 07/06/19 Rx - History PMHx: systolic/diastolic CHF, hyperbilirubinemia, chronic afib s/p pacemaker, HLD, GERD, chronic microcytic anemia, HTN, gout PSHx: pacemaker with multiple revisions, PICC FHx: HTN, CAD, RI Social: Hx meth use, denies current use. Quit smoking/etoh use 3mo ago. - Review of Systems General: denies: fever/chills, weight/appetite/sleep changes Eyes: denies: vision changes, other ENT: denies: nasal congestion, rhinorrhea Respiratory: reports: shortness of breath. denies: cough Cardiovascular: reports: edema. denies: chest pain, palpitation Gastrointestinal: denies: nausea, vomiting Genitourinary: denies: dysuria, polyuria Skin: denies: rashes, lesions Musculoskeletal: reports: pain (left arm). denies: arthritis/arthralgias Neurological: denies: numbness, weakness - Vital signs BP: 128/85, Pulse: 87, Resp: 20, Temp: 98, O2: 97%, Wt: 100.2kg - Physical Exam Constitutional: NAD, awake, alert and oriented HEENT: normocephalic and atraumatic, EOMI Neck: supple, FROM Heart: RRR, normal S1/S2 -Lungs: Bilateral basilar crackles, expiratory rhonci throughout Abdomen: soft, non-tender, bowel sounds present Musculoskeletal: ROM grossly normal -Musculoskeletal: Left arm with tense edema Neurological: no focal deficit, CN II-XII intact Skin: no rash/lesions, capillary refill <2 seconds Heme/Lymphatic: no unusual bruising or bleeding, no purpura Psychiatric: normal mood and affect, good judgment and insight, intact recent and remote memory FMR H&P: Results - Labs Result Diagrams: 07/07/19 04:31 07/07/19 04:31 Lab results: WBC 10.4 thou/uL (4.8-10.8) 07/06/19 19:05 Hgb 10.6 g/dL (14.0-18.0) L 07/06/19 19:05 Hct 32.9 % (42.0-52.0) L 07/06/19 19:05 MCV 106.0 fL (78.0-98.0) H 07/06/19 19:05 Plt Count 131 thou/uL (130-400) 07/06/19 19:05 Neutrophils % 62.6 % (42.0-75.0) 07/06/19 19:05 Sodium 136 mmol/L (136-145) 07/06/19 19:05 Potassium 3.9 mmol/L (3.5-5.1) 07/06/19 19:05 Chloride 100 mmol/L (98-107) 07/06/19 19:05 Carbon Dioxide 24 mmol/L (22-29) 07/06/19 19:05 BUN 28 mg/dL (8.4-25.7) H 07/06/19 19:05 Creatinine 1.42 mg/dL (0.7-1.3) H 07/06/19 19:05 Glucose 92 mg/dL (70-105) 07/06/19 19:05 Calcium 9.7 mg/dL (7.8-10.44) 07/06/19 19:05 Total Bilirubin 4.0 mg/dL (0.2-1.2) H 07/06/19 19:05 AST 35 U/L (5-34) H 07/06/19 19:05 ALT 17 U/L (8-55) 07/06/19 19:05 Alkaline Phosphatase 167 U/L (40-110) H 07/06/19 19:05 CK-MB (CK-2) 1.8 ng/mL (0-6.6) 07/06/19 19:05 B-Natriuretic Peptide 853.0 pg/mL (0-100) H 07/06/19 19:05 Serum Total Protein 8.0 g/dL (6.0-8.3) 07/06/19 19:05 Albumin 3.6 g/dL (3.5-5.0) 07/06/19 19:05 - EKG Interpretation EK lead EKG shows, Rate (beats per minute): 87, Interpretation:, Conduction normal, ST, Areas affected: inferior leads, Areas affected: lateral leads, T waves normal, [place], right, atrial pacemaker, QRS is prolonged. - Radiology Interpretation Chest x-ray Status: report reviewed by me (Cardiomegaly with mild vascular congestion) FMR H&P: A/P - Problem List (1) Acute exacerbation of CHF (congestive heart failure) Current Visit: No Status: Acute Code(s): I50.9 - HEART FAILURE, UNSPECIFIED Qualifiers: Heart failure type: combined systolic and diastolic Qualified Code(s): I50.43 - Acute on chronic combined systolic (congestive) and diastolic ( congestive) heart failure (2) Hyperbilirubinemia Current Visit: No Status: Acute Code(s): E80.6 - OTHER DISORDERS OF BILIRUBIN METABOLISM (3) Elevated troponin Current Visit: No Status: Chronic Code(s): R74.8 - ABNORMAL LEVELS OF OTHER SERUM ENZYMES (4) HLD (hyperlipidemia) Current Visit: No Status: Chronic Code(s): E78.5 - HYPERLIPIDEMIA, UNSPECIFIED (5) Hypertension Current Visit: No Status: Chronic Priority: Medium Code(s): I10 - ESSENTIAL (PRIMARY) HYPERTENSION Qualifiers: Hypertension type: essential hypertension Qualified Code(s): I10 - Essential (primary) hypertension (6) Macrocytic anemia Current Visit: No Status: Chronic Code(s): D53.9 - NUTRITIONAL ANEMIA, UNSPECIFIED (7) Nonischemic cardiomyopathy Current Visit: No Status: Chronic Code(s): I42.9 - CARDIOMYOPATHY, UNSPECIFIED - Plan CHF exacerbation - Combined syst/diastolic dysf 2/2 cardiomyopathy - Continue home medications and milrinone drip - BNP elevated to 853 which is actually lower than most of his numbers - Trop chronically elevated, will trend x3 - Dr. Cuevas called by ED regarding EKG changes, states is due to cardiomyopathy , no intervention needed - Discussed case with Dr. Aguilar - Metolazone 2.5mg 6 hour post ED lasix followed by 100mg IV lasix 30 minutes later - 1500ml fluid restriction - Daily weights - Strict I&O's Macrocytosis - B12 and folate Hyperbilirubinemia - Due to alcoholic liver damage, unchanged CKD II - Stable for patient's baseline, continue to monitor renal function with diuresis - Baseline ~1.25, today 1.42 Chronic Medical Problems - Continue home rx HTN HLD GERD COPD IVF: SL Diet: HH - fluid restriction VTE: Eliquis Code: Full Dispo: Admit inpt to telemetry for diuresis and monitoring. PCP: Dr. Marion FMR H&P: Upper Level - Pertinent history Pt comes in with SOB and reports feeling overloaded. Denies any fever or chills. I have reviewed the above HPI and made edits to it as needed above. pt denies any n/v/d/c. - Plan Date/Time: 07/06/192041 I, Gonzalez Wilkerson, PGY-3, have evaluated this patient and agree with findings/ plan as outlined by strategy intern resident. Pertinent changes/additions are listed here. I have made edits to above plan as needed. I agree with above. At this time we have consulted, cadiology/CHF specialist, Dr. Aguilar. We are following his recommendations for tx at this time. See above plan for detailed. Addendum - Attending - Attending Attestation Date/Time: 07/06/192325 I personally evaluated the patient and discussed the management with Dr. Fritz I agree with the History, Examination, Assessment and Plan documented above with any addition or exceptions noted below - 59yo M with h/o combined systolic and diastolic HF on chronic milrinone drip, HTN, A-fib, HLD presents to ED w/ worsening SOB and edema. States that nothing has really changed aside from that he has been eating more microwave meals at home that have a lot of salt in it due to COVID changes affecting the type of food he is able to get. Denies any fever/chills/chest pain. Reports he has been taking his medications as prescribed. Denies any N/V. Does report some increased tightness across his abdomen, PMH/PSH/Meds./SH reviewed and agree with resident's documentation. Afebrile BP 167/102 P85 RR22 96%RA Exam repeated by me and agree with resident's findings. Labs: H/H=10.5/32.9, Sjr=026, Hj=715, K=3.9, BUN/Cr=28/1.42 , Mg=1.7, trop=0.145, CRN=726 A/P: 1) Acute on chronic CHF exacerbation - Place in obs. Cont milrinone drip and diurectics. Dr. Aguilar notified of patient's admission and recommendations given for care. Will see patient in AM. 2) HTN- continue home medications
[2019-07-06] MEDS ORDERED: Acetaminophen 325 MG TAB PO PRN (23:06)
[2019-07-06] MEDS ORDERED: Sucralfate 1 GM TAB PO PRN (23:38)
[2019-07-06] MEDS ORDERED: Cyclobenzaprine 10 MG TAB PO PRN (23:38)
[2019-07-06] MEDS ORDERED: Milrinone Lactate/D5W 20 MG/100 ML BAG IVPB SCH (23:45)
[2019-07-07] MEDS: Milrinone Lactate/D5W 20 MG in Premix Bag 1 BAG IV SCH ×5 (00:43→23:58)
[2019-07-07] MEDS: HYDROcodone/Acetaminophen 10/325 mg Tablet PO PRN ×4 (00:44→22:27)
[2019-07-07] MEDS ORDERED: Metolazone 2.5 MG TAB PO SCH (01:30)
[2019-07-07] MEDS ORDERED: Furosemide 100 MG/10 ML VIAL SLOW IVP SCH (02:00)
[2019-07-07 05:12] LABS: #Basophils 0.1 thou/uL (0.0-0.2); #Eosinphils 0.2 thou/uL (0.0-0.7); #Lymphocytes 2.3 thou/uL (1.20-3.40); #Monocytes 1.2 thou/uL (0.11-0.59); #Neutrophils 5.3 thou/uL (1.40-6.50); %Basophils 1.4 % (0.0-1.0); %Eosinophils 1.9 % (0.0-10.0); %Lymphocytes 24.9 % (21.0-51.0); %Monocytes 13.5 % (0.0-10.0); %Neutrophils 58.3 % (42.0-75.0); Hemoglobin 10.6 g/dL (14.0-18.0); Mean Corpuscular HGB CONC 33.2 g/dL (32.0-36.0); Mean Corpuscular Hemoglobin 34.8 pg (27.0-31.0); Mean Platelet Volume 8.6 fL (7.4-10.4); Platelet Count 135 thou/uL (130-400); RBC Distribution Width 13.3 % (11.5-14.5); Red Blood Cell (RBC) Count 3.06 mill/uL (4.70-6.10); White Blood Cell (WBC) Count 9.1 thou/uL (4.8-10.8)
[2019-07-07 05:37] LABS: Anion Gap 16 mmol/L (10-20); BUN (Urea Nitrogen) 26 mg/dL (8.4-25.7); Calc. Creatinine Clearance 88 mL/min (70-130); Calcium 9.7 mg/dL (7.8-10.44); Carbon Dioxide 20 mmol/L (22-29); Chloride 100 mmol/L (98-107); Estimated GFR-MDRD 69; Glucose 76 mg/dL (70-105); Magnesium 1.6 mg/dL (1.6-2.6); Potassium 3.3 mmol/L (3.5-5.1); Sodium 133 mmol/L (136-145)
--- NOTE | 2019-07-07 06:22 | PDOC.FM ---
- Subjective Subjective: Pt denies any CP. C/o SOB slightly above baseline and fatigue more than usual. Pt states he has been eating fast food and frozen food lately. He has a plan to get a [employer] waqas so he can start cooking healthier again. - Objective MAR Reviewed: Yes Vital Signs & Weight: Vital Signs (12 hours) Temp Pulse Resp BP BP Pulse Ox 07/07/19 03:35 98.1 F 92 18 156/113 H 95 07/06/19 19:00 97.4 F L 87 20 171/80 H 98 Weight Weight 101.695 kg I&O: 07/05/19 07/06/19 07/07/19 06:59 06:59 06:59 Intake Total 120 Output Total 1100 Balance -980 Result Diagrams: 07/07/19 04:31 07/07/19 04:31 Phys Exam - Physical Examination Constitutional: NAD HEENT: PERRLA, moist MMs Neck: no nodes + JVD Respiratory: no wheezing Bibasilar crackles Cardiovascular: RRR sys murmur Gastrointestinal: soft, non-tender Musculoskeletal: pulses present, edema present (BLE and LUE ) Psychiatric: normal affect, A&O x 3 Skin: no rash, cap refill <2 seconds Dx/Plan (1) Hypomagnesemia Code(s): E83.42 - HYPOMAGNESEMIA Status: Acute (2) Acute exacerbation of CHF (congestive heart failure) Code(s): I50.9 - HEART FAILURE, UNSPECIFIED Status: Acute Qualifiers: Heart failure type: combined systolic and diastolic Qualified Code(s): I50.43 - Acute on chronic combined systolic (congestive) and diastolic ( congestive) heart failure (3) Hyperbilirubinemia Code(s): E80.6 - OTHER DISORDERS OF BILIRUBIN METABOLISM Status: Acute (4) Chronic atrial fibrillation Code(s): I48.2 - CHRONIC ATRIAL FIBRILLATION * DO NOT USE * Status: Chronic (5) HLD (hyperlipidemia) Code(s): E78.5 - HYPERLIPIDEMIA, UNSPECIFIED Status: Chronic (6) Hypertension Code(s): I10 - ESSENTIAL (PRIMARY) HYPERTENSION Status: Chronic Qualifiers: Hypertension type: essential hypertension Qualified Code(s): I10 - Essential (primary) hypertension (7) Macrocytic anemia Code(s): D53.9 - NUTRITIONAL ANEMIA, UNSPECIFIED Status: Chronic (8) Nonischemic cardiomyopathy Code(s): I42.9 - CARDIOMYOPATHY, UNSPECIFIED Status: Chronic (9) Hypokalemia Code(s): E87.6 - HYPOKALEMIA Status: Resolved - Plan Plan: CHF exacerbation - Combined syst/diastolic dysf 2/2 cardiomyopathy - Continue home medications and milrinone drip - BNP elevated to 853, below his baseline. - Trop chronically elevated, will trend x3 - Dr. Cuevas called by ED regarding EKG changes, states is due to cardiomyopathy , no intervention needed - Discussed case with Dr. Aguilar, who will help manage. - Metolazone 2.5mg 6 hour post ED lasix followed by 100mg IV lasix 30 minutes later - Lasix 80 mg IV TID - 1500ml fluid restriction - Daily weights - Strict I&O's Macrocytic anemia - B12 and folate wnl Electrolyte abnormalities - K 3.3, Mag 1.6 - replaced accordingly, and will trend daily. Hyperbilirubinemia - Due to alcoholic liver damage, unchanged CKD II - Stable for patient's baseline, continue to monitor renal function with diuresis - Baseline ~1.25, today 1.42 Chronic Medical Problems - Continue home rx HTN HLD GERD COPD IVF: SL Diet: HH - fluid restriction VTE: Eliquis Code: Full Dispo: Admit inpt to telemetry for diuresis and monitoring. PCP: Dr. Marion HF specialist: Dr. Aguilar Addendum - Attending - Attending Attestation Date/Time: 07/07/19 1535 I personally evaluated the patient and discussed the management with Dr. Alonso I agree with the History, Examination, Assessment and Plan documented above with any addition or exceptions noted below. Continue diuresis. Replace electrolytes. Appreciate recs from Dr. Aguilar.
[2019-07-07] MEDS ORDERED: Potassium Chloride 20 MEQ TAB PO SCH (06:30)
[2019-07-07] MEDS ORDERED: Magnesium Oxide 400 MG TAB PO SCH (06:30)
[2019-07-07] MEDS: Magnesium Oxide 400 MG TAB PO SCH ×2 (08:50→20:40)
[2019-07-07] MEDS: Torsemide 20 MG TAB PO SCH ×2 (08:51→13:13)
[2019-07-07] MEDS: Amiodarone 200 MG TAB PO SCH (08:52)
[2019-07-07] MEDS: Ferrous Sulfate 325 MG TAB PO SCH (08:52)
[2019-07-07] MEDS: Aspirin 81 mg Enteric Coated Tablet PO SCH ×2 (08:52→20:39)
[2019-07-07] MEDS: Apixaban 5 MG TAB PO SCH ×2 (08:52→20:40)
[2019-07-07] MEDS: Valsartan 80 MG TAB PO SCH ×2 (08:54→20:39)
[2019-07-07] MEDS: Furosemide 100 MG/10 ML VIAL SLOW IVP SCH ×3 (08:54→20:41)
[2019-07-07] MEDS ORDERED: Magnesium Sulfate 2 GM in Sodium Chloride 0.9% 100 ML IVPB SCH (09:00)
[2019-07-07] MEDS: Potassium Chloride 20 MEQ TAB PO SCH ×4 (09:15→20:40)
--- NOTE | 2019-07-07 13:05 | CON ---
DATE OF CONSULTATION: 07/07/2019 This is from [facility]. REASON FOR CONSULT: Management of decompensation in chronic biventricular failure. HISTORY OF PRESENT ILLNESS: Mr. Mónica Aldrich, 59-year-old gentleman with heart failure with reduced ejection fraction and severe right ventricular failure, on chronic milrinone IV GTT at the maximum dose, presented with decompensated heart failure. He said he was doing well since the last discharge from having influenza. He was able to ambulate some for about 2 weeks, but due to COVID-19, he had difficulty obtaining food. He bought a sausage. For 3 days, he ate sausages. Therefore, after the 1st day of sausage, he kept on eating that he noticed that he became more and more short of breath. He also noted abdominal swelling, then he also experienced return of lower extremity swelling. It worsened to the point where he could not lay down to sleep anymore. He had to sleep straight up and then he also had paroxysmal nocturnal dyspnea which he will wake up in middle of the night, needing to breathe. This happened for 3 nights in a row. Combination of increasing swelling, progressive shortness of breath, unable to sleep caused him to seek help. He has severe biventricular failure. He refused advanced heart failure care consideration. He is on palliative care with maximum dose of milrinone. Therefore, this is not unexpected. However, his dietary indiscretion definitely triggered this event. PAST MEDICAL HISTORY: 1. Heart failure with reduced ejection fraction with combined systolic and diastolic dysfunction, this also has right ventricular failure. It is due to nonischemic cardiomyopathy. 2. History of ventricular tachycardia especially with a low potassium and low magnesium. 3. Hypertension. 4. Hyperlipidemia. 5. COPD. 6. History of alcohol abuse. 7. History of drug abuse. 8. Chronic macrocytic anemia. SOCIAL HISTORY: He had recent history of alcohol use. He said he started drinking heavily about 6 years ago. This includes 6 beers plus hard liquor each day. Eventually, he stopped altogether. He has history of illicit drug use. He admitted to using drugs of cocaine at different times and also different forms. However, he stopped in 2010. He denies cigarette smoking. FAMILY HISTORY: His father of cancer at age 76. His mother of cancer at age 56. He had a sister who had a heart failure but of cancer in her 50s. He has another sister who of a cancer in the 50s. So, there is a strong family history. ALLERGIES: ALLERGIES AND SENSITIVITIES: IODINE AND SPIRONOLACTONE. MEDICATIONS: His home cardiac medications include; 1. Atorvastatin 80 mg at bedtime. 2. Apixaban at 5 mg b.i.d. 3. Toprol-XL 25 mg q.12 hours. 4. Potassium chloride K-Dur 20 mEq twice a day. 5. Milrinone IV GTT at 0.75 mcg/kg/minute, this is maximum dose. 6. Torsemide 40 mg twice a day. 7. Aspirin 81 mg daily. 8. Amiodarone at 200 mg daily. 9. Magnesium oxide at 800 mg b.i.d. 10. Valsartan 400 mg b.i.d. 11. Metolazone at 5 mg weekly. REVIEW OF SYSTEMS: GENERAL: He is more fatigued, however, he denies fever, chills, or productive cough. HEENT: There is no changing in vision, hearing, or swallowing. PULMONARY: Please see HPI. CARDIOVASCULAR: Please see HPI. GI: Please see HPI. : He still able to urinate well. MUSCULOSKELETAL: He still has a swollen left shoulder and left arm; however, the amount of swelling has decreased. INTEGUMENT: There is no skin breakdown. NEUROLOGIC. There are no focal deficits or weaknesses. His telemetry was reviewed. It showed that is a mixed paced rhythm. There is some bigeminy and PVC rate between 85 at 95, but there is no ventricular tachycardia seen. PHYSICAL EXAMINATION: VITAL SIGNS: He has a variable blood pressure readings. When the blood pressure is placed on the left forearm, which is quite edematous, it would give a false higher values. However, if you placed a blood pressure on the right forearm, it has much more accurate reading. His last reading with heart rate at 84, blood pressure 128/64. GENERAL: He is fatigued and sleeping, reclining at about 60 degrees in bed. He is easily woken. He is conversational. He said he is breathing easy and able to sustain medium length sentences. HEENT: Show EOMI. No scleral icterus. The oropharynx benign with moist mucosa. NECK: JVP is elevated to just below the earlobe. PULMONARY: He actually has good air movement bilateral, slight left basilar crackles. CARDIAC: regular rate and rhythm, S1/S2, prominent S3 gallop, 3/6 holosystolic murmur at the apex with radiation to left axilla, RV heave. ABDOMEN: Distended, soft, nontender. Positive bowel sounds. There is fluid wave, so he has quite a bit of fluids in the abdomen. EXTREMITIES: His lower extremity has about 1 cm pitting edema from his feet to two-third way up towards knee. LABORATORY VALUES: Sodium 133, potassium 3.3, chloride 100, bicarbonate 20, BUN 26, and creatinine 1.28. His BNP is 853. His BiV AICD-CRTD device was interrogated and then also reprogrammed. It is [employer] quad XT HEARINGS REPORTER-D [id number] with a serial number is [id number]. In the beginning, it is VVIR mode with lower rate set at 85 beats per minute and non adaptive mode; however, the LV to RV delays are set to zero. He does have a ventricular stabilization turn off. So this will allow the pacemaker to pace faster in the PVCs to suppress the PVC occurring. It is recorded there are 2 episodes of nonsustained VT. However, the EGM did not show the waveforms except for 2 beats and labelled much longer run. He is currently total BiV paced at 87.4%. His OptiVol fluid index is greater than 200, so that is the maximum. Number adjustments were mainly with the varying rate. Rate would vary between 70 and 85. At the rate of 75, he appeared to have a least amount of bigeminy. With the least amount of bigeminy that would give him the most effective contractions , so this was left arm had lower rate limit of 75. ASSESSMENT: 59-year-old gentleman resides in [place] Heart Association stage D and [place] Heart Association class 3B heart failure with reduced ejection fraction. He also has severe right ventricular failure. He is in decompensation, also volume overloaded state due to recent diet indiscretions. Three days of eating sausage will definitely do this. However, due to his such a poor underlying biventricular function, it may be difficult to turn him around. Right now, he has sufficient blood pressure and sufficient heart cardiac output, consequently large amount of steady diuretic may work still. Please see the following for recommendations. RECOMMENDATIONS: 1. To start diuresis. Give metolazone 2.5 mg p.o. 1 dose followed by Lasix 100 mg IV 1 dose. 2. After that, can use Lasix 80 mg IV 3 times a day for least 2 days. 3. Please keep potassium at 4 or higher. 4. Please keep magnesium at 2 or higher. 5. Dose to electrolytes above, we will help him to stay away from ventricular tachycardia. 6. This is a palliative care case. The best we can do is get the fluid off and make him comfortable. It is possible we need to address him about turning off the defibrillator. It has been a pleasure taking care of Mr. Mónica Aldrich. If you have questions, please give me a call. Job ID: [id number] [facility]
[2019-07-07 17:21] LABS: Magnesium 1.9 mg/dL (1.6-2.6)
[2019-07-07] MEDS: Atorvastatin Calcium 40 MG TAB PO SCH (20:40)
[2019-07-08] MEDS: Milrinone Lactate/D5W 20 MG in Premix Bag 1 BAG IV SCH ×5 (04:38→23:26)
--- NOTE | 2019-07-08 07:08 | PDOC.FM ---
- Subjective Subjective: Pt states his SOB is improved. feeling stronger Has had great urinary output. tele monitoring overnight. V paced, few pvc's rate 70-80's - Objective MAR Reviewed: Yes Vital Signs & Weight: Vital Signs (12 hours) Temp Pulse Resp BP Pulse Ox 07/08/19 03:23 98.0 F 75 18 135/61 94 L 07/07/19 20:00 97.0 F L 75 20 124/51 L 100 Weight Weight 101.695 kg I&O: 07/07/19 07/08/19 07/09/19 06:59 06:59 06:59 Intake Total 120 1160 Output Total 1100 2280 Balance -980 -1120 Result Diagrams: 07/08/19 09:31 07/08/19 08:34 Phys Exam - Physical Examination Constitutional: NAD HEENT: moist MMs scleral icterus Neck: supple, full ROM bibasilar crackles Cardiovascular: RRR, no rub Gastrointestinal: soft, non-tender, positive bowel sounds Musculoskeletal: pulses present, edema present (all 4 ext pitting) Neurological: non-focal, normal sensation, moves all 4 limbs Psychiatric: normal affect, A&O x 3 Skin: no rash, normal turgor, cap refill <2 seconds Dx/Plan (1) Hypomagnesemia Code(s): E83.42 - HYPOMAGNESEMIA Status: Acute (2) Acute exacerbation of CHF (congestive heart failure) Code(s): I50.9 - HEART FAILURE, UNSPECIFIED Status: Acute Qualifiers: Heart failure type: combined systolic and diastolic Qualified Code(s): I50.43 - Acute on chronic combined systolic (congestive) and diastolic ( congestive) heart failure (3) Hyperbilirubinemia Code(s): E80.6 - OTHER DISORDERS OF BILIRUBIN METABOLISM Status: Acute (4) Chronic atrial fibrillation Code(s): I48.2 - CHRONIC ATRIAL FIBRILLATION * DO NOT USE * Status: Chronic (5) HLD (hyperlipidemia) Code(s): E78.5 - HYPERLIPIDEMIA, UNSPECIFIED Status: Chronic (6) Hypertension Code(s): I10 - ESSENTIAL (PRIMARY) HYPERTENSION Status: Chronic Qualifiers: Hypertension type: essential hypertension Qualified Code(s): I10 - Essential (primary) hypertension (7) Macrocytic anemia Code(s): D53.9 - NUTRITIONAL ANEMIA, UNSPECIFIED Status: Chronic (8) Nonischemic cardiomyopathy Code(s): I42.9 - CARDIOMYOPATHY, UNSPECIFIED Status: Chronic - Plan Plan: CHF exacerbation - Combined syst/diastolic dysf 2/2 cardiomyopathy - Continue home medications and milrinone drip - BNP elevated to 853, below his baseline. - Trop chronically elevated, will trend x3 - Dr. Cuevas called by ED regarding EKG changes, states is due to cardiomyopathy , no intervention needed - Discussed case with Dr. Aguilar, who will help manage. - Metolazone 2.5mg 6 hour post ED lasix followed by 100mg IV lasix 30 minutes later on 07/05 - Lasix 80 mg IV TID for at least 2 days, started on 07/06 - 1500ml fluid restriction - Daily weights - Strict I&O's Macrocytic anemia - B12 and folate wnl Electrolyte abnormalities - K 3.3-> 4.0 , Mag 1.6-> 1.9 - replaced accordingly, and will trend daily. Hyperbilirubinemia - Due to alcoholic liver damage, unchanged CKD II - Stable for patient's baseline, continue to monitor renal function with diuresis - Baseline ~1.25, today 1.42 Chronic Medical Problems - Continue home rx HTN HLD GERD COPD IVF: SL Diet: HH - fluid restriction VTE: Eliquis Code: Full Dispo: Admit inpt to telemetry for diuresis and monitoring. PCP: Dr. Marion HF specialist: Dr. Aguilar Addendum - Attending - Attending Attestation Date/Time: 07/08/19 [id number] I personally evaluated the patient and discussed the management with Dr. Alonso I agree with the History, Examination, Assessment and Plan documented above with any addition or exceptions noted below. Diuresing well. Appreciate recs from Dr. Aguilar.
[2019-07-08] MEDS: Aspirin 81 mg Enteric Coated Tablet PO SCH ×2 (08:28→20:38)
[2019-07-08] MEDS: Ferrous Sulfate 325 MG TAB PO SCH (08:28)
[2019-07-08] MEDS: Amiodarone 200 MG TAB PO SCH (08:28)
[2019-07-08] MEDS: Apixaban 5 MG TAB PO SCH ×2 (08:28→20:40)
[2019-07-08] MEDS: Potassium Chloride 20 MEQ TAB PO SCH ×3 (08:28→16:07)
[2019-07-08] MEDS: Furosemide 100 MG/10 ML VIAL SLOW IVP SCH ×3 (08:29→20:39)
[2019-07-08] MEDS: Magnesium Oxide 400 MG TAB PO SCH ×2 (08:29→20:39)
[2019-07-08] MEDS: Valsartan 80 MG TAB PO SCH ×2 (08:30→20:38)
[2019-07-08] MEDS ORDERED: Metolazone 2.5 MG TAB PO SCH (08:30)
[2019-07-08 08:59] LABS: ALT (SGPT) 14 U/L (8-55); AST (SGOT) 27 U/L (5-34); Albumin 3.6 g/dL (3.5-5.0); Alkaline Phosphatase 132 U/L (40-110); Anion Gap 18 mmol/L (10-20); BUN (Urea Nitrogen) 29 mg/dL (8.4-25.7); Bilirubin, Total 3.9 mg/dL (0.2-1.2); Calc. Creatinine Clearance 68 mL/min (70-130); Calcium 10.1 mg/dL (7.8-10.44); Carbon Dioxide 18 mmol/L (22-29); Chloride 101 mmol/L (98-107); Estimated GFR-MDRD 51; Globulin 4.7 g/dL (2.4-3.5); Glucose 102 mg/dL (70-105); Potassium 4.6 mmol/L (3.5-5.1); Protein, Total 8.3 g/dL (6.0-8.3); Sodium 132 mmol/L (136-145)
[2019-07-08] MEDS ORDERED: Furosemide 100 MG/10 ML VIAL SLOW IVP SCH (09:00)
[2019-07-08 09:38] LABS: Hemoglobin 10.6 g/dL (14.0-18.0); Platelet Count 137 thou/uL (130-400)
--- NOTE | 2019-07-08 09:57 | PRG ---
DATE OF SERVICE: 07/08/2019 HISTORY OF PRESENT ILLNESS: Mr. Aldrich said he had a pretty good day. He was able to walk some. He has felt like the fluid is coming off. He believes he is breathing easier. He still has to sleep at about 45 degrees. REVIEW OF SYSTEMS: GENERAL: There is no fever or chills, or productive cough. HEENT: There is no change in vision, hearing, or swallowing. PULMONARY: See HPI. CARDIAC: There is no chest pains, palpitations, or syncope. GI: He is able to eat. : He is able to urinate well. MUSCULOSKELETAL: There is no complaint of joint pains. INTEGUMENT: He still has edema of the left shoulder, left arm, but this is less so, it is from his chronic thrombophlebitis. NEUROLOGIC: There is no new focal deficits or weaknesses. MEDICATIONS: His cardiac medications include; 1. Amiodarone 200 mg daily. 2. Torsemide 40 but that should be stopped. 3. Valsartan 40 mg b.i.d. 4. Aspirin 81 b.i.d. 5. Apixaban 5 mg b.i.d. 6. K-Dur 40 mEq b.i.d. 7. Lasix at 80 mg IV three times a day. 8. Atorvastatin at 40 mg at bedtime. 9. Magnesium at 800 b.i.d. 10. Toprol-XL at 25 mg q.12 hours. PHYSICAL EXAMINATION: VITAL SIGNS: His telemetry was reviewed. It looks like he is in a bigeminy- type pattern. He has a paced beat followed by a narrow QRS. This has been consistent. The overall rate is about between 82 to 90. Upon examination, he is showing pulsus alternans feeling his radial pulse, it is about 70. However, it is alternating strong beat and weak beat. His blood pressure at that range is 106/70. GENERAL: He is alert and conversational. After increase of the rate, he showed much more increased energy level, became much more talkative. HEENT: EOMI. Oropharynx is benign with moist mucosa. NECK: His JVP is still very high, right below the neck. PULMONARY: Good air movement, bilateral coarse breath sounds. Slight bibasilar crackles. CARDIAC: Afterwards, it is regular rate and rhythm with S1 and S2. There is 3/ 6 holosystolic murmur at the apex with radiation to the left axilla. His S3 gallop heard yesterday has been diminished, but there is also right ventricular heave. ABDOMEN: Distended, soft, and nontender, but is less so than yesterday. EXTREMITIES: Lower extremity has 0.5 cm pitting edema from feet to about 2/[address] towards his knee, is less so than yesterday. His recorded I's and O's are net -900 mL for the last 24 hours, but this is questionable. LABORATORIES: There is no complete lab this morning. However, it did show potassium 4 and magnesium 1.9. This is inadequate. We needed to see his BUN, creatinine, also bicarb along with sodium, so we know where his fluid status and electrolyte status and also renal function status are. PROCEDURE I interrogated and reprogrammed the pacemaker (WEB PRODUCTION DESIGNER-D). Interrogation showed he is Bi-V pacing less than 78% of time and real-time EGM shows that he has one Bi-V pacing, then he has fast conducted atrial beat that the Bi-V is unable to effectively pace and that is what giving him the every other beat. The basal rate was increased from 75 to 80 when that happens, atrial escape rhythm was suppressed, then he had effective Bi-V pacing. His pulse following the radial artery went up to 80 beats per minute and the blood pressure increased to 138/78. ASSESSMENT: 59-year-old gentleman resides in AHA stage D and also [place] Heart Association class 3B heart failure with reduced ejection fraction. He has both systolic and diastolic dysfunctions. It is a biventricular failure because he also has a right ventricular failure too. He has a pulsus alternans, could be due to his worsening heart failure and most likely due to escape rhythm occuring faster than the Bi-V pacemaker can pace. With adjustment this morning, he should have much better cardiac output. He is currently still volume overloaded. He is on palliative care. His overall picture remains grim. For now, continue with IV diuretics. Please see the following recommendations. RECOMMENDATIONS: 1. Continue milrinone 0.75 mcg/kg/minute. 2. Increase Toprol-XL to 50 mg p.o. q.12 hours. That should decrease amount of escape beats from the atrium to prevent pulsus alternans due to pacemaker unable to keep up. 3. I have adjusted WEB PRODUCTION DESIGNER-D to give effective 80 beats per minute. 4. Continue with Lasix 80 mg IV t.i.d. for today. Please do not give any torsemide while giving the IV Lasix. 5. Please do complete metabolic panel today. We need to look at total bilirubin to see severity of right heart failure. 6. Please do at least a BMP, magnesium, and BNP everyday because we need to know his BUN, creatinine, bicarb, and also sodium to adjust his overall medical treatment plan. Just knowing the potassium and magnesium is not enough. It has been a pleasure taking care of Mr. Mónica Aldrich. If you have any questions, please give me a call. This was an extended visit including interrogation and reprogrammin of WEB PRODUCTION DESIGNER-D device. The total is 80 minutes. Job ID: [id number] [facility]
[2019-07-08] MEDS ORDERED: Magnesium 2 GM/50 ML 2 GM in Premix Bag 1 BAG IVPB SCH (10:00)
[2019-07-08] MEDS ORDERED: Ondansetron ORAL SOLN. 4 MG/5 ML UDCUP PO PRN (16:12)
[2019-07-08] MEDS: HYDROcodone/Acetaminophen 10/325 mg Tablet PO PRN (20:35)
[2019-07-08] MEDS: Atorvastatin Calcium 40 MG TAB PO SCH (20:38)
[2019-07-09] MEDS: Milrinone Lactate/D5W 20 MG in Premix Bag 1 BAG IV SCH ×4 (04:08→16:28)
[2019-07-09] MEDS: HYDROcodone/Acetaminophen 10/325 mg Tablet PO PRN ×2 (04:11→23:41)
[2019-07-09 04:21] LABS: Anion Gap 15 mmol/L (10-20); BUN (Urea Nitrogen) 32 mg/dL (8.4-25.7); Band 3 % (5-11); Calc. Creatinine Clearance 58 mL/min (70-130); Calcium 9.9 mg/dL (7.8-10.44); Carbon Dioxide 22 mmol/L (22-29); Chloride 100 mmol/L (98-107); Eosinophils 5 % (0-10); Estimated GFR-MDRD 44; Glucose 95 mg/dL (70-105); Hemoglobin 10.3 g/dL (14.0-18.0); Lymphocytes 25 % (21-51); MDiff Complete? YES; Magnesium 2.3 mg/dL (1.6-2.6); Mean Corpuscular HGB CONC 32.8 g/dL (32.0-36.0); Mean Corpuscular Hemoglobin 34.7 pg (27.0-31.0); Mean Platelet Volume 8.1 fL (7.4-10.4); Monocytes 7 % (0-10); Neutrophil 60 % (42-75); Platelet Count 132 thou/uL (130-400); Platelet Morphology Comment Appears Adequate; Potassium 4.8 mmol/L (3.5-5.1); RBC Distribution Width 13.3 % (11.5-14.5); Red Blood Cell (RBC) Count 2.99 mill/uL (4.70-6.10); Sodium 132 mmol/L (136-145); White Blood Cell (WBC) Count 8.5 thou/uL (4.8-10.8)
--- NOTE | 2019-07-09 07:27 | PDOC.FM ---
- Subjective Subjective: Pt states SOB and energy levels are much improved Pt had pacemaker adjusted yesterday. Cr has increased. No acute overnight events. Denies CP. - Objective MAR Reviewed: Yes Vital Signs & Weight: Vital Signs (12 hours) Temp Pulse Resp BP Pulse Ox 07/09/19 04:15 82 20 110/58 L 07/09/19 03:32 96.8 F L 82 18 96/61 93 L 07/09/19 00:00 86 20 122/77 07/08/19 20:00 97.8 F 83 22 H 111/70 96 Weight Weight 100.153 kg I&O: 07/08/19 07/09/19 07/10/19 06:59 06:59 06:59 Intake Total 1640 1594 Output Total 3080 2350 Balance -1440 -346 Result Diagrams: 07/09/19 03:34 07/09/19 03:34 Phys Exam - Physical Examination Constitutional: NAD HEENT: moist MMs scleral icterus + JVD to jaw line. slight Crackles bibasilar, improved from previous exams. Cardiovascular: RRR sys murmur Gastrointestinal: soft, non-tender Musculoskeletal: pulses present, edema present Neurological: non-focal, moves all 4 limbs Psychiatric: normal affect Skin: no rash, cap refill <2 seconds Dx/Plan (1) Hypomagnesemia Code(s): E83.42 - HYPOMAGNESEMIA Status: Acute (2) Acute exacerbation of CHF (congestive heart failure) Code(s): I50.9 - HEART FAILURE, UNSPECIFIED Status: Acute Qualifiers: Heart failure type: combined systolic and diastolic Qualified Code(s): I50.43 - Acute on chronic combined systolic (congestive) and diastolic ( congestive) heart failure (3) Hyperbilirubinemia Code(s): E80.6 - OTHER DISORDERS OF BILIRUBIN METABOLISM Status: Acute (4) Chronic atrial fibrillation Code(s): I48.2 - CHRONIC ATRIAL FIBRILLATION * DO NOT USE * Status: Chronic (5) HLD (hyperlipidemia) Code(s): E78.5 - HYPERLIPIDEMIA, UNSPECIFIED Status: Chronic (6) Hypertension Code(s): I10 - ESSENTIAL (PRIMARY) HYPERTENSION Status: Chronic Qualifiers: Hypertension type: essential hypertension Qualified Code(s): I10 - Essential (primary) hypertension (7) Macrocytic anemia Code(s): D53.9 - NUTRITIONAL ANEMIA, UNSPECIFIED Status: Chronic (8) Nonischemic cardiomyopathy Code(s): I42.9 - CARDIOMYOPATHY, UNSPECIFIED Status: Chronic (9) Hypokalemia Code(s): E87.6 - HYPOKALEMIA Status: Resolved - Plan Plan: CHF exacerbation - Combined syst/diastolic dysf 2/2 cardiomyopathy - Continue home medications and milrinone drip - BNP elevated to 853-> 637 -> 840, below his baseline. - Trop chronically elevated, will trend x3 - Dr. Cuevas called by ED regarding EKG changes, states is due to cardiomyopathy , no intervention needed - Discussed case with Dr. Aguilar, who will help manage. - Metolazone 2.5mg 6 hour post ED lasix followed by 100mg IV lasix 30 minutes later on 07/05 - Lasix 80 mg IV TID for at least 2 days, started on 07/06. Changed to Lasix 80 mg BID on 07/08. - 1500ml fluid restriction - Daily weights - Strict I&O's Macrocytic anemia - B12 and folate wnl Electrolyte abnormalities - K 3.3-> 4.0 -> 4.8, Mag 1.6-> 1.9 -> 2.3 - replaced accordingly, and will trend daily. Hyperbilirubinemia - Due to alcoholic liver damage, unchanged JOSE A on CKD II - Stable for patient's baseline, continue to monitor renal function with diuresis - Baseline Cr. ~1.25, today 1.92 - will titrate diuretics down as likely cause of JOSE A - Hold home torsemide while receiving lasix IV. Chronic Medical Problems - Continue home rx HTN HLD GERD COPD IVF: SL Diet: HH - fluid restriction VTE: Eliquis Code: Full Dispo: Admit inpt to telemetry for diuresis and monitoring. PCP: Dr. Marion HF specialist: Dr. Aguilar Addendum - Attending - Attending Attestation Date/Time: 07/09/19 6522 I personally evaluated the patient and discussed the management with Dr. Alonso. I agree with the History, Examination, Assessment and Plan documented above with any addition or exceptions noted below. Continue diuresis per Dr. Aguilar. Monitor electrolyes. adjusting potassium supplementation.
[2019-07-09] MEDS: Amiodarone 200 MG TAB PO SCH (08:16)
[2019-07-09] MEDS: Potassium Chloride 20 MEQ TAB PO SCH ×2 (08:16→16:28)
[2019-07-09] MEDS: Aspirin 81 mg Enteric Coated Tablet PO SCH ×2 (08:17→21:14)
[2019-07-09] MEDS: Magnesium Oxide 400 MG TAB PO SCH ×2 (08:17→21:13)
[2019-07-09] MEDS: Apixaban 5 MG TAB PO SCH ×2 (08:17→21:14)
[2019-07-09] MEDS: Furosemide 100 MG/10 ML VIAL SLOW IVP SCH ×2 (08:17→21:13)
[2019-07-09] MEDS: Valsartan 80 MG TAB PO SCH ×2 (08:17→21:14)
[2019-07-09] MEDS: Ferrous Sulfate 325 MG TAB PO SCH (08:17)
--- NOTE | 2019-07-09 10:04 | PRG ---
DATE OF SERVICE: 07/09/2019 SUBJECTIVE: Mr. Aldrich had an excellent day. After the pacemaker adjustment, his pulsus alternans went away. He had effective contraction on every beat. Afterwards, he felt much more energetic and breathing easier. He felt like that he was able to urinate a lot more fluid. He also felt much more energetic throughout the day and finally he was able to eat again. REVIEW OF SYSTEMS: GENERAL: There is no fever or chills or productive cough. HEENT: There is no change in vision, hearing, or swallowing. PULMONARY: His shortness of breath has gone. CARDIAC: There are no palpitations, chest pain, or syncope. GI: He is eating well. : He is urinating well. MUSCULOSKELETAL: He has no new complaints. INTEGUMENT: He has swelling from thrombophlebitis of the left upper arm and left shoulder still. NEUROLOGIC: There are no new focal deficits or weaknesses. CARDIAC MEDICATIONS: 1. Milrinone at 0.75 mcg/kg/minute. 2. Amiodarone at 200 mg daily. 3. Apixaban at 5 mg twice a day. 4. Aspirin 81 mg daily. 5. Atorvastatin 40 mg daily. 6. Lasix 80 mg IV t.i.d. 7. Magnesium oxide 800 mg daily. 8. Toprol-XL has been increased to 50 mg q.12 hours. 9. Potassium supplement, K-Dur at 40 mg b.i.d. 10. Valsartan 40 mg b.i.d. PHYSICAL EXAMINATION: His telemetry is reviewed. It showed that he is primary in paced rhythm. There is no concerning arrhythmia. VITAL SIGNS: His most recent vital signs are heart rate 86 and blood pressure 106/76. GENERAL: He is alert and conversational, sitting much comfortably in bed and breathing easier, more energetic than yesterday. He is able to sustain long sentences without being short of breath. HEENT: EOMI. However, he still has continued scleral icterus - his eyes are jaundiced. His oropharynx is benign with moist mucosa. PULMONARY: There is good air movement bilaterally today. There are almost no crackles. CARDIAC: Regular rate and rhythm. There is S3 gallop that you can sometimes hear. There is 2/6 holosystolic murmur at the apex with radiation to the left axilla. There is also a right ventricular heave. ABDOMEN: Soft, nontender, distended. Positive bowel sounds. EXTREMITIES: Lower extremity, there is 0.5 or deeper pitting edema from the feet to about skilled nursing to his knees. LABORATORY VALUES: This morning show sodium 132, BUN at 32, and creatinine at 1.92. ASSESSMENT: 59-year-old gentleman resides in [place] Heart Association stage D and also [place] Heart Association class 3B heart failure with reduced ejection fraction. It is a biventricular failure. He has severe right ventricular dysfunction resulting in right ventricular failure also. It is a nonischemic cardiomyopathy. 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 He also has a right ventricular failure that causes liver dysfunction. Today, he is doing much better due to better cardiac output. However, he is still volume overloaded. Unfortunately his BUN and creatinine have increased, so we need to slow down the diuresis. His overall picture is very grim. At this point, it seems like even Lasix at 80 mg IV is losing its effect. Please see the following for recommendations. RECOMMENDATIONS: 1. Decrease Lasix to 80 mg IV b.i.d. 2. Continue to diuresis as much we can and to offload as much as fluid we can before switching over to oral. Keeping him dry as possible before going home that would have the best chance of him staying as an outpatient. 3. We will observe the blood pressure carefully for the next 12 to 24 hours. We might be able to change from valsartan to Entresto. However, if the kidney function gets worse, then we will have to stop the valsartan and jacket changer to isosorbide dinitrate and hydralazine combination. 4. Please approach the patient about potential of turning off the AICD poor chance survival but keeping Bi-V device portion going. It has been a pleasure taking care of Mr. óMnica Aldrich. If you have any questions, please give me a call. Job ID: [id number] [facility]
[2019-07-09] MEDS: Atorvastatin Calcium 40 MG TAB PO SCH (21:13)
[2019-07-10] MEDS: Milrinone Lactate/D5W 20 MG in Premix Bag 1 BAG IV SCH ×4 (01:54→20:13)
[2019-07-10 04:04] LABS: Anion Gap 15 mmol/L (10-20); BUN (Urea Nitrogen) 36 mg/dL (8.4-25.7); Calc. Creatinine Clearance 47 mL/min (70-130); Calcium 9.9 mg/dL (7.8-10.44); Carbon Dioxide 20 mmol/L (22-29); Chloride 99 mmol/L (98-107); Estimated GFR-MDRD 34; Glucose 110 mg/dL (70-105); Magnesium 2.3 mg/dL (1.6-2.6); Potassium 5.1 mmol/L (3.5-5.1); Sodium 129 mmol/L (136-145)
--- NOTE | 2019-07-10 07:40 | PDOC.FM ---
- Subjective Subjective: Pt states he is feeling much better. slept flat last night without SOB. urinated about 6 times yesterday and states the nurses are collecting all urine , none that was not measured. Pt's renal function decreasing with diuresis. Monitoring showed HR 70-80's. Some skipped beats observed. - Objective MAR Reviewed: Yes Vital Signs & Weight: Vital Signs (12 hours) Temp Pulse Resp BP BP Pulse Ox 07/10/19 03:49 98.0 F 82 18 112/60 95 07/09/19 20:00 97.8 F 83 18 110/64 97 Weight Weight 101.605 kg I&O: 07/09/19 07/10/19 07/11/19 06:59 06:59 06:59 Intake Total 1594 1916 Output Total 2350 1090 Balance -756 826 Result Diagrams: 07/09/19 03:34 07/10/19 03:28 Phys Exam - Physical Examination Constitutional: NAD HEENT: moist MMs scleral icterus. Neck: supple, full ROM JVD to jaw line. end expiratory wheezing. Slight bibasilar crackles. Cardiovascular: RRR sys murmur Gastrointestinal: soft fluid present in lower abdomen. Musculoskeletal: pulses present, edema present (all 4 ext. ) Neurological: non-focal, moves all 4 limbs Psychiatric: normal affect, A&O x 3 Skin: no rash Dx/Plan (1) Hypomagnesemia Code(s): E83.42 - HYPOMAGNESEMIA Status: Acute (2) Acute exacerbation of CHF (congestive heart failure) Code(s): I50.9 - HEART FAILURE, UNSPECIFIED Status: Acute Qualifiers: Heart failure type: combined systolic and diastolic Qualified Code(s): I50.43 - Acute on chronic combined systolic (congestive) and diastolic ( congestive) heart failure (3) Hyperbilirubinemia Code(s): E80.6 - OTHER DISORDERS OF BILIRUBIN METABOLISM Status: Acute (4) Chronic atrial fibrillation Code(s): I48.2 - CHRONIC ATRIAL FIBRILLATION * DO NOT USE * Status: Chronic (5) HLD (hyperlipidemia) Code(s): E78.5 - HYPERLIPIDEMIA, UNSPECIFIED Status: Chronic (6) Hypertension Code(s): I10 - ESSENTIAL (PRIMARY) HYPERTENSION Status: Chronic Qualifiers: Hypertension type: essential hypertension Qualified Code(s): I10 - Essential (primary) hypertension (7) Macrocytic anemia Code(s): D53.9 - NUTRITIONAL ANEMIA, UNSPECIFIED Status: Chronic (8) Nonischemic cardiomyopathy Code(s): I42.9 - CARDIOMYOPATHY, UNSPECIFIED Status: Chronic - Plan Plan: CHF exacerbation - Combined syst/diastolic dysf 2/2 cardiomyopathy - Continue home medications and milrinone drip - BNP elevated to 853-> 637 -> 840, below his baseline. - Trop chronically elevated, will trend x3 - Dr. Cuevas called by ED regarding EKG changes, states is due to cardiomyopathy , no intervention needed - Discussed case with Dr. Aguilar, who will help manage. - Metolazone 2.5mg 6 hour post ED lasix followed by 100mg IV lasix 30 minutes later on 07/05 - Lasix 80 mg IV TID for at least 2 days, started on 07/06. Changed to Lasix 80 mg BID on 07/08. Holding AM lasix dose until discussed with Dr. Aguilar. - d/C'd valsartan and started isosorbide dinitrate with hydralazine combo due to renal function diminished. - 1500ml fluid restriction - Daily weights - Strict I&O's Macrocytic anemia - B12 and folate wnl Electrolyte abnormalities - K 3.3-> 4.0 -> 4.8-> 5.1, Mag 1.6-> 1.9 -> 2.3-> 2.3 - replaced accordingly, and will trend daily. - D/c'd K-dur and will monitor. Hyperbilirubinemia - Due to alcoholic liver damage, unchanged JOSE A on CKD II baseline - Stable for patient's baseline, continue to monitor renal function with diuresis - Baseline Cr. ~1.25, 07/08 1.92, 07/09 2.38 - will titrate diuretics down as likely cause of JOSE A - Hold home torsemide while receiving lasix IV. - D/C'd valsartan, will discuss with HF specialist about best choice of diuretics given the pt's renal function worsening. Holding Lasix in meantime. Chronic Medical Problems - Continue home rx HTN HLD GERD COPD IVF: SL Diet: HH - fluid restriction VTE: Eliquis Code: Full Dispo: Admit inpt to telemetry for diuresis and monitoring. PCP: Dr. Marion HF specialist: Dr. Aguilar Addendum - Attending - Attending Attestation Date/Time: 07/10/19 8405 I personally evaluated the patient and discussed the management with Dr. Alonso. I agree with the History, Examination, Assessment and Plan documented above with any addition or exceptions noted below. Mr. Aldrich is in the process of deciding usp goals of care. Dr. Aguilar recommends deactivation of AICD and transition to palliative care measures. The patient was initially agreeable to this but then changed his mind. Will keep on dobutamine and milnirone gtt and plan to have family meeting with Dr. Aguilar and primary team tomorrow afternoon. Overall prognosis is guarded especially in context of likely developing cardiorenal syndrome.
[2019-07-10] MEDS: hydrALAZINE 25 MG TAB PO SCH ×2 (09:27→15:31)
[2019-07-10] MEDS: Amiodarone 200 MG TAB PO SCH (09:27)
[2019-07-10] MEDS: Ferrous Sulfate 325 MG TAB PO SCH (09:27)
[2019-07-10] MEDS: Aspirin 81 mg Enteric Coated Tablet PO SCH ×2 (09:27→20:13)
[2019-07-10] MEDS: Apixaban 5 MG TAB PO SCH ×2 (09:27→20:13)
[2019-07-10] MEDS: Isosorbide Dinitrate 20 MG TAB PO SCH ×2 (09:28→15:32)
[2019-07-10] MEDS: Magnesium Oxide 400 MG TAB PO SCH ×2 (09:28→20:14)
[2019-07-10] MEDS ORDERED: DOBUTamine 500 mg/250 ml 250 ML IVPB SCH (09:30)
--- NOTE | 2019-07-10 09:38 | PDOC.BPN ---
- Brief Progress Note Held lengthy conversation with Dr. Aguilar in room as well about code status and prognosis. He was informed of is worsening renal function and CHF and that he is likely to soon. He decided it would be best to let occur naturally. He understands this means turning of the defibrillator and only having the pacer function on his AICD. He wants to be DNR as well. The pt would like to go home and go fishing and hold conversations with his family and friends. He is at peace with this decision and goals of care. The pt refused any hospice consult, even after hospice care being explained to him.
[2019-07-10] MEDS: HYDROcodone/Acetaminophen 10/325 mg Tablet PO PRN (09:55)
--- NOTE | 2019-07-10 10:14 | PRG ---
DATE OF SERVICE: 07/10/2019 SERVICE: [facility]ing [facility]. SUBJECTIVE: Mr. Aldrich had a variable day. He said he is breathing well. He is able to get out of the bed, take a shower, but not much beyond that. But, then he also noticed that he seemed to have a recurrence of a little bit of wheeze. He said he slept well last night, did not have any PND. He could get at much lower level than what he has been in the past. REVIEW OF SYSTEMS: GENERAL: There is no fever, chills, or productive cough. HEENT: There is no change in vision, hearing, or swallowing. PULMONARY: Please see HPI. CARDIAC: Please see HPI. There is no palpitation, chest pains, or syncope. GI: He was able to eat well. : He says he is able to urinate well. MUSCULOSKELETAL: There is no complaint of specific pain. INTEGUMENT: He has chronic left shoulder and left arm edema. NEUROLOGIC: There are no focal deficits or weaknesses. MEDICATIONS: His current cardiac medications include: 1. Amiodarone 200 mg daily. 2. Apixaban 5 mg twice a day. 3. Aspirin 80 mg daily. 4. Atorvastatin 40 mg q.h.s. 5. Hydralazine at 25 mg 3 times a day. 6. Isosorbide dinitrate 20 mg 3 times a day. 7. Toprol-XL 50 mg q.12 h. 8. Milrinone at 0.75 mcg/kg per minute. 9. His IV Lasix has been stopped. 10. Valsartan has been stopped. OBJECTIVE: TELEMETRY: His telemetry was reviewed. He is paced, but there are no concerning arrhythmias. He is paced at 80 beats per minute. VITAL SIGNS: His latest vital signs are heart rate 80, blood pressure 103/59. His oxygen saturation is about 94% on room air. On account of his pulses, he is actually about 76, so he has a good effective pacing. GENERAL: He is alert and conversational, able to talk. He can speak in medium length sentence. HEENT: Showed EOMI. He still has a bit of scleral jaundice. His oropharynx is benign with moist mucosa. NECK: JVP is elevated, near the earlobe. PULMONARY: Slightly rhonchorous and bibasilar crackles. CARDIAC: Mostly regular rate and rhythm. There is 3/6 holosystolic murmur at the apex with radiation to the left axilla. There is a right ventricular heave. ABDOMEN: Mildly distended, soft, nontender. Positive bowel sounds. EXTREMITIES: Lower extremities still have 0.5 pitting edema from feet to about two-third way up. LABORATORY DATA: His laboratory values are worse this morning. Sodium decreased down to 129. BUN has increased to 36, creatinine has increased to 2.38. This is despite reduction in diuresis. ASSESSMENT: This 59-year-old gentleman is progressively worsening. He resides in [place] Heart Association stage D and [place] Heart Association class IV heart failure with reduced ejection fraction. Milrinone at maximal dose of 0.75 mcg/kg per minute is no longer providing sufficient cardiac output. Lasix at 80 mg IV twice a day is not providing enough diuretics to pull fluid off. His heart has given out. It is nonischemic cardiomyopathy with both systolic and also diastolic dysfunction. At this point, short of urgent heart transplant. There is no solution. Left ventricular assist device will not even work because of poor right heart function. The patient has refused advanced heart failure therapy in the past, now it is also too late to initiate this. The patient's situation was discussed. The patient understands his situation. 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 Because at this point, defibrillation or cardioversion will only bring him back to prolong suffering. He has no gain whatsoever. However, the patient does not want to go on hospice. He wants to go home and do as much as he can. His desire is understandable. I will do whatever I can to support him through this last difficult period. RECOMMENDATIONS: 1. Add dobutamine 2.5 mcg/kg per minute IV gtt. to augment his heart for one last time. 2. Hold Lasix for 1 day to see if we can recover his renal function 3. Reduce Toprol-XL back down to 25 mg twice a day. 4. We will monitor his blood pressure throughout the day. If his blood pressure gets too low, we can also stop his isosorbide dinitrate and hydralazine. At this time, it is best to call a family meeting and plan essential. Today may not be a good day for discharge due to need to plan. We need to design a maximum diuretic regimen that he can go home with. We need to find a plan that he can pass away at home if all possible convince the patient to accept hospice to visit the home. 5. A possible home regimen can consist of milrinone 0.75 mcg/kg/min amiodarone 200 mg daily Toprol-XL 25 mg q12 hours Torsemide 60 mg bid Metolazone 5 mg 30-minutes before morning torsemide on & Sun. I am very sorry that he has finally come to this end. His heart failure has taken his final course. 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 If that does, it will only be brief. It has been a pleasure of taking care Mr. Mónica Aldrich. If you have any questions, please give me a call. Job ID: [id number] MTDD
[2019-07-10] MEDS: Atorvastatin Calcium 40 MG TAB PO SCH (20:14)
[2019-07-11] MEDS: Milrinone Lactate/D5W 20 MG in Premix Bag 1 BAG IV SCH ×4 (00:28→15:21)
[2019-07-11 04:57] LABS: Anion Gap 14 mmol/L (10-20); BUN (Urea Nitrogen) 39 mg/dL (8.4-25.7); Calc. Creatinine Clearance 40 mL/min (70-130); Carbon Dioxide 24 mmol/L (22-29); Chloride 99 mmol/L (98-107); Estimated GFR-MDRD 27; Glucose 96 mg/dL (70-105); Magnesium 2.4 mg/dL (1.6-2.6); Potassium 4.9 mmol/L (3.5-5.1); Sodium 132 mmol/L (136-145)
--- NOTE | 2019-07-11 07:30 | PDOC.FM ---
- Subjective Subjective: worsening renal function. Pt states he slept flat overnight, denies PND. States his breathing has improved. Admits to decreased urine output with dark colored urine. Had episode of hypotension after getting out of shower yesterday evening. Resolved once back in bed. Tele: v-paced, 70-80's - Objective Vital Signs & Weight: Vital Signs (12 hours) Temp Pulse Resp BP BP Pulse Ox 07/11/19 03:37 98.9 F 80 23 H 112/55 L 94 L 07/11/19 00:00 132/72 Weight Weight 102.92 kg I&O: 07/10/19 07/11/19 07/12/19 06:59 06:59 06:59 Intake Total 1916 1520 Output Total 1090 700 Balance 826 820 Result Diagrams: 07/09/19 03:34 07/11/19 04:08 Phys Exam - Physical Examination Constitutional: NAD HEENT: moist MMs scleral icterus Neck: supple JVD to jaw line. Respiratory: wheezing present (end expiratory ) bibasilar crackles Cardiovascular: RRR sys murmur. Pulses strong matching HR. Gastrointestinal: soft, non-tender, positive bowel sounds fluid wave Musculoskeletal: pulses present, edema present (all 4 ext pitting ) Neurological: non-focal, moves all 4 limbs Psychiatric: normal affect Dx/Plan (1) Hypomagnesemia Code(s): E83.42 - HYPOMAGNESEMIA Status: Resolved (2) Acute exacerbation of CHF (congestive heart failure) Code(s): I50.9 - HEART FAILURE, UNSPECIFIED Status: Acute Qualifiers: Heart failure type: combined systolic and diastolic Qualified Code(s): I50.43 - Acute on chronic combined systolic (congestive) and diastolic ( congestive) heart failure (3) Hyperbilirubinemia Code(s): E80.6 - OTHER DISORDERS OF BILIRUBIN METABOLISM Status: Acute (4) Chronic atrial fibrillation Code(s): I48.2 - CHRONIC ATRIAL FIBRILLATION * DO NOT USE * Status: Chronic (5) HLD (hyperlipidemia) Code(s): E78.5 - HYPERLIPIDEMIA, UNSPECIFIED Status: Chronic (6) Hypertension Code(s): I10 - ESSENTIAL (PRIMARY) HYPERTENSION Status: Chronic Qualifiers: Hypertension type: essential hypertension Qualified Code(s): I10 - Essential (primary) hypertension (7) Macrocytic anemia Code(s): D53.9 - NUTRITIONAL ANEMIA, UNSPECIFIED Status: Chronic (8) Nonischemic cardiomyopathy Code(s): I42.9 - CARDIOMYOPATHY, UNSPECIFIED Status: Chronic (9) Acute kidney injury superimposed on CKD Code(s): N17.9 - ACUTE KIDNEY FAILURE, UNSPECIFIED; N18.9 - CHRONIC KIDNEY DISEASE, UNSPECIFIED Status: Acute - Plan Plan: CHF exacerbation - Combined syst/diastolic dysf 2/2 cardiomyopathy - Continue home medications and milrinone drip - BNP elevated to 853-> 637 -> 840, below his baseline. - Trop chronically elevated, will trend x3 - Dr. Cuevas called by ED regarding EKG changes, states is due to cardiomyopathy , no intervention needed - Discussed case with Dr. Aguilar, who recommends: - Metolazone 2.5mg 6 hour post ED lasix followed by 100mg IV lasix 30 minutes later on 07/05 - Lasix 80 mg IV TID for at least 2 days, started on 07/06. Changed to Lasix 80 mg BID on 07/08. Holding AM lasix dose until discussed with Dr. Aguilar. - d/C'd valsartan and started isosorbide dinitrate with hydralazine combo due to renal function diminished. D/C'd isosorbide dinitrate with hydralazine combo to give pt more BP support to help diuresis. - Metolazone 5 mg once, followed 30 minutes later by 100 mg IV lasix on 07/10 AM. - 1500ml fluid restriction - Daily weights - Strict I&O's - Pt to hold family conference today 07/10, to discuss goals of care and code status. Full code currently. - on 07/09 pt decided to be DNR and had defibrillator turned off. He then changed his mind to being full code again. Defibrillator is currently turned off. Will discuss if he wants this on or off in family conference today. Macrocytic anemia - B12 and folate wnl - stable. Electrolyte abnormalities - K 3.3-> 4.0 -> 4.8-> 5.1-> 4.9, Mag 1.6-> 1.9 -> 2.3-> 2.3-> 2.4 - replaced accordingly, and will trend daily. - D/c'd K-dur and will monitor. Hyperbilirubinemia - Due to alcoholic liver damage, unchanged JOSE A on CKD II previous baseline, worsening. - Stable for patient's baseline, continue to monitor renal function with diuresis - Baseline Cr. ~1.25, 07/08 1.92, 07/09 2.38, 07/10 2.87 - will titrate diuretics down as likely cause of JOSE A - Hold home torsemide while receiving lasix IV. - D/C'd valsartan, will discuss with HF specialist about best choice of diuretics given the pt's renal function worsening. Holding Lasix in meantime. - Pt was started on dobutamine for 1 day per HF specialist on 07/09. Plan was to restart torsemide 07/10. Holding AM dose until Dr. Aguilar gives further recommendations. Dr. Aguilar recommends 5 mg metolazone and then 30 minutes after given to give 100 mg IV lasix. Following Dr. aguilar's recommendations very closely. Called nurse to instruct her how to give medications. She understands instructions and timing. Chronic Medical Problems - Continue home rx HTN HLD GERD COPD IVF: SL Diet: HH - fluid restriction VTE: Eliquis Code: Full Dispo: Admit inpt to telemetry for diuresis and JOSE A on CKD. PCP: Dr. Marion HF specialist: Dr. Aguilar Addendum - Attending - Attending Attestation Date/Time: 07/11/19 6682 I personally evaluated the patient and discussed the management with Dr. Alonso. I agree with the History, Examination, Assessment and Plan documented above with any addition or exceptions noted below. Increasing dobutamine and diuretic today as renal function worsened overnight. Family meeting today with Dr. Aguilar. Prognosis guarded.
[2019-07-11] MEDS: Amiodarone 200 MG TAB PO SCH (08:45)
[2019-07-11] MEDS: Magnesium Oxide 400 MG TAB PO SCH (08:45)
[2019-07-11] MEDS: Aspirin 81 mg Enteric Coated Tablet PO SCH (08:46)
[2019-07-11] MEDS: Apixaban 5 MG TAB PO SCH (08:46)
[2019-07-11] MEDS: Ferrous Sulfate 325 MG TAB PO SCH (08:47)
[2019-07-11] MEDS ORDERED: Torsemide 20 MG TAB PO SCH (09:00)
[2019-07-11] MEDS ORDERED: Metolazone 5 MG TAB PO SCH (09:15)
[2019-07-11] MEDS ORDERED: Furosemide 100 MG/10 ML VIAL SLOW IVP SCH (09:45)
[2019-07-11] MEDS ORDERED: DOBUTamine 500 mg/250 ml 250 ML IVPB SCH (10:10)
[2019-07-11 10:47] LABS: ALT (SGPT) 10 U/L (8-55); AST (SGOT) 22 U/L (5-34); Albumin 3.3 g/dL (3.5-5.0); Alkaline Phosphatase 158 U/L (40-110); Bilirubin, Direct 2.3 mg/dL (0.1-0.3); Bilirubin, Total 3.1 mg/dL (0.2-1.2); Protein, Total 7.7 g/dL (6.0-8.3)
[2019-07-11] MEDS ORDERED: Ondansetron PF 4 MG/2 ML Vial IVP PRN (12:12)
--- NOTE | 2019-07-11 13:35 | PRG ---
DATE OF SERVICE: 07/11/2019 This is from [facility]. SUBJECTIVE: Mr. Mónica Aldrich had a variable day. Yesterday at first, he agreed to go home on do not resuscitate and defibrillator portion although his AICD will turn off. Then during the middle of the day, he changed his mind. He wanted to talk to his family. So, he would not abstain. Because it is better to address the whole situation with his entire family and so instead of going back and forth between the hospital and home. Due to his worsening renal function, his diuretic was stopped. Unfortunately, it did not help. He has stopped urinating altogether when diuretic was stopped. He then said he felt nauseated afterwards. Dobutamine was started to help well with improving cardiac output apparently at 2.5 mcg/kg/minute was not sufficient. REVIEW OF SYSTEMS: GENERAL: There is no fever, chills, or cough. HEENT: There is no change in vision, hearing, or swallowing. PULMONARY: He still breathing easy. CARDIAC: He has no chest pains, syncope, or palpitation. GI: See HPI. : See HPI. MUSCULOSKELETAL: He did not complain of new joint pains. INTEGUMENT: There is no new breakdown. NEUROLOGIC: There is no focal weaknesses or deficits. MEDICATIONS: His cardiac medication currently includes; 1. Amiodarone 200 mg daily. 2. Apixaban 5 mg twice a day. 3. Aspirin 81 mg daily. 4. Atorvastatin 40 mg at bedtime. 5. Dobutamine at 2.5 mcg/kg/minute. 6. Toprol-XL 25 mg twice a day. 7. Milrinone 0.75 mcg/kg/minute. OBJECTIVE: TELEMETRY: His telemetry was reviewed. He has a paced rhythm. There is no concerning arrhythmia. VITAL SIGNS: His vitals currently are heart rate 80 and blood pressure 119/73. GENERAL: He is alert and conversational. He is still sitting comfortably in a chair. HEENT: Show EOMI. However, he still have scleral icterus. NECK: His JVP still elevated about 14 cm or higher. PULMONARY: There are bilateral crackles. However, the bilateral crackles decreased since receiving IV Lasix. CARDIAC: Regular rate and rhythm with 2/6 holosystolic murmur at the apex with radiation to the left axilla. There is also right ventricular heave. ABDOMEN: Mildly distended, soft, and nontender. EXTREMITIES: His lower extremity has decreased edema. Positive dorsalis pedis pulses bilaterally. LABORATORY DATA: Sodium 132, potassium 4.9, BUN 39, and creatinine 2.87. ASSESSMENT: A 59-year-old gentleman has worsening of his heart failure. He resides in [place] Heart Association stage D and [place] Heart Association class 4 heart failure with reduced ejection fraction. Now, he is depending on dobutamine and maximal dose of milrinone to sustain life. He is unable to provide enough cardiac output to his kidneys. Thus, he have a very short time left. RECOMMENDATIONS: 1. This is to document the 5 mg of metolazone followed by was given this morning. This is to provide volume relief. He did feel better afterwards your meeting. 2. Increase dobutamine to 5 mcg/kg/minute, so this will sustain the diuresis and help him for right now. 3. We will consider decreasing milrinone down to 0.5 mcg/kg/minute because he is probably becoming toxic soon with increasing creatinine; however, he may still depend on this 0.75 mcg/kg/minute only as a palliative dose. This will be determined on the family meeting. 4. The whole family meeting at 2 p.m. today and discussed the whole situation. Mr. Mónica Aldrich; however, he is progressively failing. He is volume overloaded. At this point, his kidney function is starting to shut down. There is nothing else that we can do. The best course of action will be hospice. It has been a pleasure taking care of Mr. Aldrich. I am verified he is coming to this conclusion. Job ID: [id number]
--- NOTE | 2019-07-11 14:00 | EKG ---
Test Reason : Blood Pressure : / mmHG Vent. Rate : 087 BPM Atrial Rate : 087 BPM P-R Int : 128 ms QRS Dur : 054 ms QT Int : 368 ms P-R-T Axes : 081 000 074 degrees QTc Int : 442 ms Electronic atrial pacemaker Indeterminate axis Pulmonary disease pattern ST elevation consider anterolateral injury or acute infarct ST elevation consider inferior injury or acute infarct Abnormal ECG Confirmed by SEFERINO HOWARD DO ([id number]), art editor FESTUS DALTON ([id number] on 07/11/2019 1:59:41 PM Referred By: Confirmed By:SEFERINO HOWARD DO
[2019-07-11] MEDS: HYDROcodone/Acetaminophen 10/325 mg Tablet PO PRN (16:43)
[2019-07-11 17:16] VITALS: BP 129/71; TEMP 97.3
--- NOTE | 2019-07-14 02:54 | DIS ---
DATE OF ADMISSION: 07/06/2019 DATE OF DISCHARGE: 07/11/2019 RESIDENT: Sravanthi Alonso DO ADMITTING ATTENDING: Rina Levine MD DISCHARGE ATTENDING: Kamran Ferrell MD CONSULTS: Heart failure specialist, Dr. Aguilar. Case management, walking program. PROCEDURES PERFORMED: None. DIAGNOSES: 1. Congestive heart failure exacerbation, combined systolic and diastolic. Right and left heart failure. 2. Macrocytic anemia. 3. Electrolyte abnormalities. 4. Hyperbilirubinemia. 5. Acute kidney injury on chronic kidney disease. CHRONIC MEDICAL PROBLEMS: 1. Hypertension. 2. Hyperlipidemia. 3. GERD. 4. COPD. DISCHARGE MEDICATIONS: 1. Metolazone 5 mg p.o. every Sunday and Sunday. 2. Torsemide 60 mg p.o. b.i.d. 3. Amiodarone 200 mg p.o. daily. 4. Eliquis 5 mg p.o. b.i.d. 5. Aspirin 81 mg p.o. daily. 6. Atorvastatin 40 mg p.o. at bedtime. 7. Flexeril 10 mg p.o. q.8 hours p.r.n. 8. Hydrocodone 10/325 mg 1 to 2 tabs p.o. q.4 hours. 9. DuoNeb 3 mL nebulizers q.i.d. p.r.n. 10. Iron 325 mg p.o. daily. 11. Mag oxide 800 mg p.o. b.i.d. 12. Metoprolol succinate 25 mg p.o. b.i.d. 13. Milrinone drip 20 mg IV PB at 0.75 mcg/kg per minute will be changed to 0.5 mcg/kg per minute day after discharge. 14. Sucralfate 1 g p.o. q.i.d. HISTORY OF PRESENT ILLNESS/HOSPITAL COURSE: Mónica Aldrich is a 59-year-old male with a history of worsening biventricular systolic and diastolic congestive heart failure with multiple admissions this past year that get shorter and shorter together. The patient was put on milrinone drip recently and had done well until being at home during this pandemic and eating frozen meals, which included frozen sausage. The sodium pushed him over the edge and required him to get fluid overloaded. He came into the emergency department due to shortness of breath and difficulty breathing. His troponin was 1.53, BNP 853. His creatinine upon admission was 1.42. Chest x-ray showed cardiomegaly with mild vascular congestion. He had been on torsemide [address] Aguilar, who knows the patient well, heart failure specialist was consulted, who managed his diuresis in the hospital. The patient showed progressive acute kidney injury with creatinine going to 1.92, then 2.3, and 2.87. This showed that the patient was not diuresing well and that his kidneys were no longer able to function well to get the fluid off him, even with the milrinone drip. Dr. Aguilar added dobutamine to the milrinone and this still did not show any improvement with the renal function. Multiple conversations were held with the patient that these are signs of his rushing with heart failure ending. The patient, after having a family meeting with Dr. Ferrell, Dr. Aguilar, and myself, decided to go home with hospice care on a milrinone drip and to live out his days left at home fishing and spending time with family as his disease process will not change and there is not much chance of recovery from this. It was described to the patient eventually he will start to become fluid overloaded and will slowly get worse and worse of shortness of breath and ultimately leading to his . He understands this and is okay with switching over to hospice care. His defibrillator was turned off. However, the pacer was left on as this is the main source of his livelihood at the moment keeping his heart pumping. The patient was told several months ago to start the process of heart transplant and it was never successful due to him not having the social support and someone that could stay with him / for 60 days. The patient understands why it was not possible and it was slightly remorseful that more steps were not taken sooner to help change his prognosis. However, he understands that his prognosis is grim and fatal and is at peace with his hospice decision. He will also be able to stay on the milrinone drip during hospice care because this is a palliative treatment. Greater than 30 minutes spent on discharge planning with Dr. Ferrell, attending present. DISPOSITION: Stable with poor prognosis. DISCHARGE INSTRUCTIONS: 1. Location: To home on hospice. 2. Diet: Heart healthy diet with low sodium. 3. Activity: As tolerated. 4. Followup: Follow up with home hospice and primary care physician, Dr. Marion. Job ID: [id number] [email or web address]
--- NOTE | 2019-07-14 10:16 | PQF ---
ALFREDO HENDERSONINESSA *r [id number] [facility]-[id number] CLINICAL DOCUMENTATION IMPROVEMENT CLARIFICATION FORM: ICD-10 Updated PLEASE DO AN ADDENDUM TO THE PROGRESS NOTE WITH ANY DOCUMENTATION UPDATES OR ADDITIONS AND CARRY THROUGH TO DC SUMMARY. THANK YOU. DATE: 07/14/2019 ATTN:DR. Polo ARRIAGA Please exercise your independent, professional judgment in responding to the clarification form. Clinical indicators are provided on the bottom of this form for your review. Please check appropriate box(s): [ ] Hyponatremia 2/2 intravascular volume overload In addition, please specify: Present on Admission (POA): [ * ] Yes CLINICAL INDICATORS - SIGNS / SYMPTOMS / LABS / RESULTS AND LOCATION IN EMR 07/06 SODIUM 133 07/07 SODIUM 132 07/08 SODIUM 132 07/09 SODIUM 129 07/10 SODIUM 132 07/10 PN ( [facility]) WORSENING RENAL FUNCTION, ADMITS TO DECREASED URINE OUTPUT WITH DARK COLORED URINE. 07/13 DISCHARGE SUMMARY ([facility]) DX: 3). ELECTROLYTE ABNORMALITY RISK: DX JOSE A SUPERIMPOSED ON CKD, ACUTE DIASTOLIC/SYSTOLIC CHF ([facility]/PN) 07/10 TREATMENT: SERIAL LABS ( 07/05- PRESENT) THANK YOU! WILLIAM (This form is maintained as a part of the permanent medical record) 2014 [employer] All Rights Reserved [email or web address] [email or web address]
== END 2019-07-11 18:40 | disposition hospice, home (50) | DRG 291 ==
LOC: ERS 18:42 → 2NO 20:50
PROVIDERS: ADMIT Family Medicine; ATTEND Family Medicine
PROC: 4B02XTZ Measurement of Cardiac Defibrillator, External Approach (ICD-10-PCS; principal; 2019-07-09)
DX: I13.0 Hypertensive heart and chronic kidney disease with heart failure and stage 1 through stage 4 chronic kidney disease, or unspecified chronic kidney disease (principal); I50.43 Acute on chronic combined systolic (congestive) and diastolic (congestive) heart failure; I48.20 Chronic atrial fibrillation, unspecified; N17.9 Acute kidney failure, unspecified; E87.1 Hypo-osmolality and hyponatremia; I42.8 Other cardiomyopathies; Z66 Do not resuscitate; Z51.5 Encounter for palliative care; M10.9 Gout, unspecified; E78.5 Hyperlipidemia, unspecified; K21.9 Gastro-esophageal reflux disease without esophagitis; D53.9 Nutritional anemia, unspecified; N18.2 Chronic kidney disease, stage 2 (mild); J44.9 Chronic obstructive pulmonary disease, unspecified; G47.30 Sleep apnea, unspecified; K70.9 Alcoholic liver disease, unspecified; I50.84 End stage heart failure; D63.1 Anemia in chronic kidney disease; E83.42 Hypomagnesemia; E87.6 Hypokalemia; I95.9 Hypotension, unspecified; Z95.810 Presence of automatic (implantable) cardiac defibrillator; Z87.891 Personal history of nicotine dependence; Z88.8 Allergy status to other drugs, medicaments and biological substances; Z91.041 Radiographic dye allergy status; Z79.899 Other long term (current) drug therapy; Z79.01 Long term (current) use of anticoagulants; Z91.11 Patient's noncompliance with dietary regimen
CPT/HCPCS: 36415; 71045; 80048; 80053; 80076; 82247; 82553; 82607; 82746; 83735; 83880; 84484; 85014; 85018; 85025; 85049; 93005; 94760; 96374; 96375; J1250; J1940; J2260; J2270; J2405; J3475; J3490